=== PATIENT | male | born 1940 | race Caucasian/White ===

== ENCOUNTER 2016-06-28 03:00 | Inpatient (IN) | payer OTHER ==
[~2016-06-28] VITALS: Ht 177.8 cm; Wt 87.6 kg
[~2016-06-28 03:00] MED LIST: BCTROWC EXT; CHOL100010 PO; CLR10 PO; CYAN250T PO; CYCL10TA6 PO; FLUT0.0529 NAE; NYSTCRE11 EXT; PSYL55.43 PO; WARF2.5T8 PO; WARF5TAB7 PO; ZOLP10TA PO
[2016-06-28] MEDS ORDERED: KETOROLAC TROMETHAMINE 30 MG/ML VIAL ONE (03:34)
[2016-06-28] MEDS ORDERED: HYDROmorphone INJ 1 MG/ML SYR ONE (03:34)
[2016-06-28] MEDS ORDERED: ONDANSETRON INJ 2 MG/ML 2 ML VIAL ONE (03:34)
[2016-06-28 05:01] LABS: BLOOD UREA NITROGEN 15 mg/dl (7-18); CALCIUM 8.7 mg/dl (8.5-10.1); CARBON DIOXIDE 29 mmol/L (21-32); CHLORIDE 103 mmol/L (98-107); GLUCOSE 166 mg/dl (70-99); POTASSIUM 3.8 mmol/L (3.5-5.1); SODIUM 141 mmol/L (136-145)
[2016-06-28 05:02] LABS: BUN/CREATININE RATIO 16.4 (10-20); CREATININE 0.94 mg/dl (0.60-1.40)
[2016-06-28 05:08] LABS: INR 2.4 (0.9-1.1); PARTIAL THROMBOPLASTIN RATIO 1.3; PROTHROMBIN TIME (PATIENT) 26.5 SECONDS (9.0-12.0)
[2016-06-28 05:10] LABS: ALKALINE PHOSPHATASE 87 U/L (45-117); ALT/SGPT 18 U/L (12-78); AST/SGOT 11 U/L (15-37)
[2016-06-28] MEDS ORDERED: BCTCR/30 EXT (05:13)
[2016-06-28] MEDS ORDERED: FLUT0.15 NAE (05:16)
[2016-06-28] MEDS ORDERED: CHOL1000 PO (05:17)
[2016-06-28] MEDS ORDERED: [UNRECOGNIZED DRUG - CODE] PO (05:19)
[2016-06-28 05:45] LABS: URINE APPEARANCE CLEAR (CLEAR); URINE BILIRUBIN NEG (NEG); URINE COLOR YELLOW; URINE NITRITE NEG (NEG); UROBILINOGEN NEG (NEG); ZZUR CULT IF INDIC CLEAN CATCH NO
[2016-06-28 05:50] LABS: MANUAL MICROSCOPIC REQUIRED? NO; REVIEW REQ? NO
[2016-06-28 06:42] LABS: BASO % 0.1 %; BASO ABS # 0.01 K/uL (0-0.2); COMPLETE YES; EOS % 0.2 %; HEMATOCRIT 44.1 % (42-52); IG% 0.3 %; LYMPH % 12.7 %; LYMPH ABS # 1.15 K/uL (1.2-3.4); MEAN CELL VOLUME 95.5 fL (80-100); MEAN CORPUSCULAR HEMOGLOBIN 34.4 pg (25-34); MEAN CORPUSCULAR HGB CONC 36.1 g/dl (32-36); MEAN PLATELET VOLUME 11.5 fL (7.4-10.4); MONO % 6.3 %; NEUT % 80.4 %; PLATELET COUNT 103 K/uL (130-400); RED BLOOD COUNT 4.62 M/uL (4.7-6.1); WHITE BLOOD COUNT 9.02 K/uL (4.8-10.8)
[2016-06-28] MEDS ORDERED: HYDROmorphone INJ 1 MG/ML SYR IV STA (06:43)
--- NOTE | 2016-06-28 07:05 | EMERGENCY ROOM VISIT NOTE ---
History Report prepared by Jil: Flo Noe Under the Supervision of: Dr. Malina Betancur D.O. First contact with patient: 04:52 Chief Complaint: ABDOMINAL PAIN Stated Complaint: NAUSEA,BACK ACHE,GAS History of Present Illness The patient is a 75 year old male who presents to the Emergency Room with complaints of persistent back pain that started at 10 PM last night. He describes the discomfort as severe and notes that it is on both sides of his back. The patient also complains of nausea and not being able to get comfortable. He also noticed he was passing more gas than usual. He denies blood in his urine at this time. Source of History: patient Onset: 10 PM last night Position: back (bilateral) Symptom Intensity: severe Timing: other (persistent) Associated Symptoms: + nausea Note: Other associated symptoms: difficulty getting comfortable, passing gas Denies: blood in his urine Review of Systems See HPI for pertinent positives & negatives. A total of 10 systems reviewed and were otherwise negative. Past Medical & Surgical Medical Problems: (1) Cholecystitis with cholelithiasis (2) Diastolic CHF (3) DVT (deep venous thrombosis) (4) PSVT (paroxysmal supraventricular tachycardia) (5) Rupture of kidney (6) Thrombocytopenia Surgical Problems: (1) eyelid surgery Family History No pertinent family history Social History Smoking Status: Never Smoker Marital Status: Housing Status: lives with family Current/Historical Medications Scheduled Cholecalciferol (Vitamin D3), 1,000 INTUNIT PO DAILY Cyanocobalamin (Vitamin B-12 250 Mcg), 500 MCG PO DAILY Fluticasone Propionate (Nasal) (Flonase Allergy Relief), 2 SPRAYS FARAZ DAILY Psyllium (Konsyl-D), 2 TSP PO BID Warfarin Sod (Jantoven), 3.75 MG PO UD Warfarin Sod (Coumadin), 2.5 MG PO UD Scheduled PRN Cyclobenzaprine Hcl (Flexeril), 10 MG PO TID PRN for muscle spasms Hydromorphone Hcl (Dilaudid), 1 TAB PO QID PRN for Pain Mupirocin 2% (Bactroban 2%), 1 APPLN EXT UD PRN for skin irritation Nystatin/Triamcinolone (Mycogen || ), 1 APPLN EXT DIRECTED PRN for Affected Skin Folds Zolpidem Tartrate (Ambien), 5 MG PO HS PRN for Sleep Allergies Coded Allergies: Garlic (Verified Allergy, Mild, stomach cramp, diarrhea, 06/28/16) Naproxen (Verified Allergy, Unknown, skin rash, 06/28/16) Hydrocodone (Verified Adverse Reaction, Unknown, vomiting, 06/28/16) Loratadine (Verified Adverse Reaction, Unknown, RACING HEART, 06/28/16) Omeprazole (Verified Adverse Reaction, Unknown, svt, 06/28/16) Onion (Verified Adverse Reaction, Unknown, upset stomach/diarrhea, 06/28/16) Oxycodone (Verified Adverse Reaction, Unknown, "KNOCKS ME OUT", 06/28/16) Pseudoephedrine (Verified Adverse Reaction, Unknown, RACING HEART, 06/28/16) Physical Exam Vital Signs Date Time Temp Pulse Resp B/P Pulse Ox O2 Delivery O2 Flow Rate FiO2 06/28/16 06:52 68 16 135/85 97 Room Air Physical Exam General: Appearing uncomfortable, was pacing around the room. HEENT: Head - normocephalic and atraumatic Pupils are equal, round, and reactive to light. Extraocular eye muscles are intact, and sclera are anicteric. Nose - moist nasal mucosa without discharge. Mouth - moist buccal mucosa. Oropharynx is nonerythematous and there is no tonsillar exudate or edema noted. Neck: Supple; no JVD, nuchal rigidity, cervical lymphadenopathy, or auscultated bruits. Back: Mid back tenderness with palpation, right worse than left. Heart: Regular rate and rhythm. There is a normal S1 and S2 with no murmurs, clicks, or gallops appreciated. Lungs: Clear to auscultation bilaterally with no wheezes, rales, or rhonchi. Abdomen: Soft, completely nontender, nondistended, with good bowel sounds. There are no palpable pulsatile masses or hepatosplenomegaly. There is no guarding, rigidity, or rebound noted. Extremities: No evidence of cyanosis, clubbing, or edema. There are easily palpable peripheral pulses. Skin: Skin is pale and diaphoretic. Medical Decision & Procedures ER Provider Diagnostic Interpretation: CT results as stated below per my review and radiologist interpretation: CT Abdomen & Pelvis: Distended gallbladder with possible thickening of the wall at the fundus. Correlate for clinical significance. No definite gallstones but ultrasound is more sensitive. Pancrease unremarkable. No obstructive uropathy/ urolithiasis. Stool throughout colon can be seen constipation with no appendicitis or bowel obstruction. No free air, free fluid, or other acute disease. Small fat- containing right inguinal hernia. BILIARY ULTRASOUND CLINICAL HISTORY: Right upper quadrant abdominal pain COMPARISON STUDY: No previous studies for comparison. FINDINGS: The pancreas is nonvisualized. No focal hepatic masses were visualized. There are multiple gallstones present. The gallbladder is distended. There is gallbladder wall thickening. The findings are viewed as suspicious for acute cholecystitis. There is no common bile duct dilatation. The common bile duct measured 2 mm. There is no right-sided hydronephrosis. IMPRESSION: 1. Distended gallbladder filled with stones and sludge. Gallbladder wall thickening. The findings are suspicious for acute cholecystitis. Electronically signed by: Josue Cuellar M.D. 06/28/2016 7:04 AM Dictated Date/Time: 06/28/2016 7:02 AM Laboratory Results Test 06/28/16 03:45 06/28/16 05:30 Nucleated RBC Absolute Count (auto) 0.00 K/uL (0-0) Nucleated Red Blood Cells % 0.0 % Direct Bilirubin 0.2 mg/dl (0-0.2) Urine Color YELLOW Urine Appearance CLEAR (CLEAR) Urine pH 5.0 (4.5-7.5) Urine Specific [place] 1.020 (1.000-1.030) Urine Protein NEG (NEG) Urine Glucose (UA) NEG (NEG) Urine Ketones NEG (NEG) Urine Occult Blood TRACE (NEG) Urine Nitrite NEG (NEG) Urine Bilirubin NEG (NEG) Urine Urobilinogen NEG (NEG) Urine Leukocyte Esterase NEG (NEG) Urine WBC (Auto) 1-5 /hpf (0-5) Urine RBC (Auto) 0-4 /hpf (0-4) Urine Hyaline Casts (Auto) 10-30 /lpf (0-5) Urine Epithelial Cells (Auto) 10-20 /lpf (0-5) Urine Bacteria (Auto) NEG (NEG) Laboratory results per my review. Medications Administered Medications (Trade) Dose Ordered Sig/Benjamin Route Start Time Stop Time Status Last Admin Dose Admin Hydromorphone HCl (Dilaudid Inj) 1 mg NOW STAT IV 06/28/16 06:43 06/28/16 06:44 DC 06/28/16 06:51 1 MG Hydromorphone HCl (Dilaudid Inj) 0.5 mg Q3H PRN IV 06/28/16 08:45 06/29/16 16:30 DC 06/29/16 10:41 0.5 MG Procedure Dilaudid Inj IV X 2 ED Course 0331: Past medical records reviewed. The patient was evaluated in room A4. A complete history and physical exam was performed. An IV lock was initiated and labs are drawn as above. 0430: At this time, I reevaluated the paitent and he is feeling much better after the medications. The patient went for CT scan of the abdomen/pelvis. This is described above. 0643: Ordered Dilaudid Inj 1 mg IV. 0701: At this time, I reevaluated the patient and he is resting. He will go for ultrasound to further evaluate the gallbladder. 0721: At this time, I discussed the patient's case with Dr. Carroll - General Antonino Ghosh and he agreed to accept the patient for further evaluation. Medical Decision The patient is a 75 year old male who presents to the Emergency Room with complaints of persistent back pain. Differential diagnoses include: pyelonephritis, uretal colic, lumbar strain, or cholecystitis. Labs reviewed by me: WBC 9 stable H&H platelet count 103 normal renal function. LFTs were unremarkable. Patient presents to the emergency department with severe persistent back pain. The patient got that he maybe suffering from a kidney stone. CT scan showed no evidence of a kidney stone but did have findings or concerning for cholecystitis. He went for ultrasound of the right upper quadrant. This confirmed javier cholecystitis. I discussed the case with Dr. Carroll and he will evaluated for further care. Consults Time Called: [phone] Consulting Physician: Dr. Elizabeth Ghosh Returned Call: [phone] At this time, I discussed the patient's case with Dr. Carroll and he agreed to accept the patient for further evaluation. Impression Primary Impression: Acute cholecystitis Scribe Attestation The scribe's documentation has been prepared under my direction and personally reviewed by me in its entirety. I confirm that the note above accurately reflects all work, treatment, procedures, and medical decision making performed by me. Departure Information Dispostion Being Evaluated By Surgeon Prescriptions Hydromorphone Hcl (DILAUDID) 2 Mg Tab 1 TAB PO QID Y for Pain for 30 Days, #18 TAB Prov: Brandi Rudd ., PA-C 06/29/16 Referrals Jacky Reza MD (PCP)
--- NOTE | 2016-06-28 07:08 | DIAGNOSTIC IMAGING REPORT ---
ABDOMEN AND PELVIS CT WITHOUT CONTRAST CT DOSE: HISTORY: Flank pain. Abdominal pain. R/O KIDNEY STONE TECHNIQUE: Multiaxial CT images of the abdomen and pelvis were performed without the use of intravenous and oral contrast according to the standard department stone protocol. COMPARISON STUDY: None. FINDINGS: Lung bases are clear. Liver spleen and pancreas appear unremarkable. Gallbladder is mildly distended. There may be a slight degree of gallbladder wall edema. There is trace amount of perinephric infiltrative change most likely age-related. Kidneys negative for hydronephrosis. Mild increase in fecal load throughout the colon. No obstructive characteristics. Bladder is midline. Multiple pelvic vascular calcifications. IMPRESSION: 1. Mild gallbladder distention with a suggestion of slight gallbladder wall edema. 2. Otherwise no acute process of the abdomen or pelvis Electronically signed by: Thomas Park M.D. 06/28/2016 7:07 AM Dictated Date/Time: 06/28/2016 6:57 AM
[2016-06-28] MEDS ORDERED: ONDANSETRON INJ 2 MG/ML 2 ML VIAL IV PRN (08:45)
[2016-06-28] MEDS ORDERED: HYDROmorphone INJ 0.5 MG/0.5 ML SYR IV PRN (08:45)
--- NOTE | 2016-06-28 09:01 | History and Physical ---
History & Physical Date & Time of Service: Jun 28, 2016 at 08:47 Chief Complaint: Nausea,Back Ache,Gas Primary Care Physician: Jacky Reza MD History of Present Illness Source: patient Alec is a 75 year-old male with history of DVT, HTN , diastolic heart failure, a- fib, and PSVT who presented to emergency department early this morning with complaint of sudden back pain and right upper sided abdominal pain that woke him up in bed around 10 pm. States he felt nauseated and felt like he had to vomit but nothing came up more than a lot of gas. Denies of any similar previous episodes of pain. No associated change in bowel habits, diarrhea, constipation, blood in stools, black/tarry stools, or acholic stools. Denies of any history of gallbladder problems. Denies of any fever, chills, night sweats, chest pain, shortness of breath, difficulty breathing, or palpitations. Mother had her gallbladder removed in her 70's. No other family history of gallbladder problems. 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 No other blood thinning agents. 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 (3) Diastolic HF (4) PSVT (5) A-Fib (9) Thrombocytopenia Family History No pertinent family history Social History Smoking Status: Never Smoker Marital Status: Housing status: lives with family Occupational Status: retired Allergies Coded Allergies: Naproxen (Verified Allergy, Unknown, skin rash, 06/28/16) Hydrocodone (Verified Adverse Reaction, Unknown, vomiting, 06/28/16) Loratadine (Verified Adverse Reaction, Unknown, RACING HEART, 06/28/16) Omeprazole (Verified Adverse Reaction, Unknown, svt, 06/28/16) Onion (Verified Adverse Reaction, Unknown, upset stomach/diarrhea, 06/28/16) Oxycodone (Verified Adverse Reaction, Unknown, "KNOCKS ME OUT", 06/28/16) Pseudoephedrine (Verified Adverse Reaction, Unknown, RACING HEART, 06/28/16) Home Medications Scheduled Cholecalciferol (Vitamin D3), 1,000 INTUNIT PO DAILY Cyanocobalamin (Vitamin B-12 250 Mcg), 500 MCG PO DAILY Fluticasone Propionate (Nasal) (Flonase Allergy Relief), 2 SPRAYS FARAZ DAILY Psyllium (Konsyl-D), 2 TSP PO BID Warfarin Sod (Jantoven), 3.75 MG PO UD Warfarin Sod (Coumadin), 2.5 MG PO UD Scheduled PRN Cyclobenzaprine Hcl (Flexeril), 10 MG PO TID PRN for muscle spasms Mupirocin 2% (Bactroban 2%), 1 APPLN EXT UD PRN for skin irritation Nystatin/Triamcinolone (Mycogen || ), 1 APPLN EXT DIRECTED PRN for Affected Skin Folds Zolpidem Tartrate (Ambien), 5 MG PO HS PRN for Sleep Review of Systems Constitutional: No chills, No fever, No sweats Respiratory: No dyspnea on exertion, No shortness of breath Cardiovascular: No chest pain Abdomen: + nausea, + pain (RUQ), No GI bleeding, No constipation, No diarrhea, No vomiting Musculoskeletal: + problem reported (back pain) Genitourinary - Male: No hematuria Endocrine: No fatigue Hematologic / Lymphatic: No abnormal bleeding/bruising Physical Exam Vital Signs Date Time Temp Pulse Resp B/P Pulse Ox O2 Delivery O2 Flow Rate FiO2 06/28/16 06:52 68 16 135/85 97 Room Air General Appearance: WD/WN, no apparent distress Head: normocephalic, atraumatic Eyes: EOMI, sclerae normal ENT: hearing grossly normal Neck: supple, trachea midline Respiratory/Chest: lungs clear, normal breath sounds, no respiratory distress, no accessory muscle use Cardiovascular: no murmur, + irregularly irregular Abdomen/GI: non tender, soft, no organomegaly, no pulsatile mass, + abnormal bowel sounds (hypoactive) Back: normal inspection Extremities/Musculoskelatal: no pedal edema Neurologic/Psych: alert, normal mood/affect, oriented x 3 Skin: normal color, warm/dry, no rash Diagnostics Laboratory Results Results Past 24 Hours Test 06/28/16 03:45 06/28/16 05:30 Range/Units White Blood Count 9.02 4.8-10.8 K/uL Red Blood Count 4.62 4.7-6.1 M/uL Hemoglobin 15.9 14.0-18.0 g/dL Hematocrit 44.1 42-52 % Mean Corpuscular Volume 95.5 80-100 fL Mean Corpuscular Hemoglobin 34.4 25-34 pg Mean Corpuscular Hemoglobin Concent 36.1 32-36 g/dl Platelet Count 103 130-400 K/uL Mean Platelet Volume 11.5 7.4-10.4 fL Neutrophils (%) (Auto) 80.4 % Lymphocytes (%) (Auto) 12.7 % Monocytes (%) (Auto) 6.3 % Eosinophils (%) (Auto) 0.2 % Basophils (%) (Auto) 0.1 % Neutrophils # (Auto) 7.24 1.4-6.5 K/uL Lymphocytes # (Auto) 1.15 1.2-3.4 K/uL Monocytes # (Auto) 0.57 0.11-0.59 K/uL Eosinophils # (Auto) 0.02 0-0.5 K/uL Basophils # (Auto) 0.01 0-0.2 K/uL RDW Standard Deviation 41.6 36.4-46.3 fL RDW Coefficient of Variation 12.0 11.5-14.5 % Immature Granulocyte % (Auto) 0.3 % Immature Granulocyte # (Auto) 0.03 0.00-0.02 K/uL Nucleated RBC Absolute Count (auto) 0.00 0-0 K/uL Nucleated Red Blood Cells % 0.0 % Prothrombin Time 26.5 9.0-12.0 SECONDS Prothromb Time International Ratio 2.4 0.9-1.1 Activated Partial Thromboplast Time 34.7 21.0-31.0 SECONDS Partial Thromboplastin Ratio 1.3 Sodium Level 141 136-145 mmol/L Potassium Level 3.8 3.5-5.1 mmol/L Chloride Level 103 98-107 mmol/L Carbon Dioxide Level 29 21-32 mmol/L Anion Gap 9.0 3-11 mmol/L Blood Urea Nitrogen 15 7-18 mg/dl Creatinine 0.94 0.60-1.40 mg/dl Estimated GFR () 92.9 Estimated GFR (Non- 80.1 BUN/Creatinine Ratio 16.4 10-20 Random Glucose 166 70-99 mg/dl Calcium Level 8.7 8.5-10.1 mg/dl Total Bilirubin 0.7 0.2-1 mg/dl Direct Bilirubin 0.2 0-0.2 mg/dl Aspartate Amino Transf (AST/SGOT) 11 15-37 U/L Alanine Aminotransferase (ALT/SGPT) 18 12-78 U/L Alkaline Phosphatase 87 45-117 U/L Total Protein 7.2 6.4-8.2 gm/dl Albumin 4.1 3.4-5.0 gm/dl Lipase 191 73-393 U/L Urine Color YELLOW Urine Appearance CLEAR CLEAR Urine pH 5.0 4.5-7.5 Urine Specific [place] 1.020 1.000-1.030 Urine Protein NEG NEG Urine Glucose (UA) NEG NEG Urine Ketones NEG NEG Urine Occult Blood TRACE NEG Urine Nitrite NEG NEG Urine Bilirubin NEG NEG Urine Urobilinogen NEG NEG Urine Leukocyte Esterase NEG NEG Urine WBC (Auto) 1-5 0-5 /hpf Urine RBC (Auto) 0-4 0-4 /hpf Urine Hyaline Casts (Auto) 10-30 0-5 /lpf Urine Epithelial Cells (Auto) 10-20 0-5 /lpf Urine Bacteria (Auto) NEG NEG Diagnostic Radiology BILIARY ULTRASOUND CLINICAL HISTORY: Right upper quadrant abdominal pain COMPARISON STUDY: No previous studies for comparison. FINDINGS: The pancreas is nonvisualized. No focal hepatic masses were visualized. There are multiple gallstones present. The gallbladder is distended. There is gallbladder wall thickening. The findings are viewed as suspicious for acute cholecystitis. There is no common bile duct dilatation. The common bile duct measured 2 mm. There is no right-sided hydronephrosis. IMPRESSION: 1. Distended gallbladder filled with stones and sludge. Gallbladder wall thickening. The findings are suspicious for acute cholecystitis. ABDOMEN AND PELVIS CT WITHOUT CONTRAST CT DOSE: HISTORY: Flank pain. Abdominal pain. R/O KIDNEY STONE TECHNIQUE: Multiaxial CT images of the abdomen and pelvis were performed without the use of intravenous and oral contrast according to the standard department stone protocol. COMPARISON STUDY: None. FINDINGS: Lung bases are clear. Liver spleen and pancreas appear unremarkable. Gallbladder is mildly distended. There may be a slight degree of gallbladder wall edema. There is trace amount of perinephric infiltrative change most likely age-related. Kidneys negative for hydronephrosis. Mild increase in fecal load throughout the colon. No obstructive characteristics. Bladder is midline. Multiple pelvic vascular calcifications. IMPRESSION: 1. Mild gallbladder distention with a suggestion of slight gallbladder wall edema. 2. Otherwise no acute process of the abdomen or pelvis Impression Assessment and Plan Acute Calculous Cholecystitis - no leukocytosis - LFTs, Bilirubin, and lipase within normal limits - examination does not show positive Kinsey's at this time however was given pain medication prior to examination History of DVT with INR of 2.4 PLAN: Plan to admit patient for observation and start IV fluids, IV antibiotics, IV pain medication and IV Zofran as needed May have clear liquids, NPO after midnight Will consult hospitalist to follow patient given cardiac history and elevated INR Will need reversal of INR prior to surgery Plan on surgery tomorrow afternoon hopefully Recheck am labs including cbc, cmp, lipase, PT/INR Dr. Carroll has seen and examined patient , agrees with assessment and plan. VTE Prophylaxis VTE Risk Assessment Done? Y/N: Yes Risk Level: Low Given or contraindicated: SCD's Social Service Consult None Apply Note I interviewed and examined this patient and reviewed the labs and radiology reports and I agree with the above note. His symptoms and exam are all consistent with cholecystitis. I recommended a laparoscopic cholecystectomy and explained the possible need to convert to and open procedure. I explained the possible complications and answered his questions. He has signed a coonsent form.
[2016-06-28] MEDS ORDERED: CMD/25 PO (10:28)
[2016-06-28] MEDS ORDERED: IV FLUIDS COMPLETED PRN (10:45)
--- NOTE | 2016-06-28 10:50 | DIAGNOSTIC IMAGING REPORT ---
CHEST ONE VIEW PORTABLE CLINICAL HISTORY: pre op COMPARISON STUDY: No previous studies for comparison. FINDINGS: The bones soft tissues and hemidiaphragms are normal. The cardiomediastinal silhouette is normal. The lungs are clear. The pulmonary vasculature is normal. IMPRESSION: Negative chest. Electronically signed by: Thomas Park M.D. 06/28/2016 10:48 AM Dictated Date/Time: 06/28/2016 10:48 AM
[2016-06-28 11:03] VITALS: Ht 177.8 cm; Wt 87.6 kg
[2016-06-28] MEDS ORDERED: PHYTONADIONE 5 MG TAB PO STA (11:18)
[2016-06-28] MEDS ORDERED: D5W AND 1/2NSS + 20MEQ KCL 1,000 ML IV SCH (11:30)
--- NOTE | 2016-06-28 11:53 | Medical Consult ---
Consultation Date of Consultation: Jun 28, 2016. Attending Physician: Thomas Carroll M.D. Reason for Consultation: Pre Op Evaluation History of Present Illness 75 year old male who presented to the ER with back pain and nausea, found to have acute cholecystitis on imaging. Patient reports he developed mid back and flank pain (R>L) around 10pm last night. He also had associated nausea. He denies vomiting, diarrhea, and abdominal pain. No fever or chills. Patient reports he otherwise has been feeling well recently. No chest pain or shortness of breath. He denies lightheadedness, dizziness, and syncopal events. No exertional shortness of breath, orthopnea, or lower extremity edema. He denies urinary symptoms. At the time of my exam, patient is resting in bed in no acute distress. Past Medical/Surgical History Medical Problems: (1) Diastolic CHF Status: Chronic (2) DVT (deep venous thrombosis) Status: Chronic (3) PSVT (paroxysmal supraventricular tachycardia) Status: Chronic (4) Rupture of kidney Status: Resolved (5) Thrombocytopenia Status: Chronic Surgical Problems: (1) eyelid surgery Status: Chronic Family History Diabetes mellitus MOTHER FH: leukemia BROTHER Social History Smoking Status: Never Smoker Alcohol Use: none Marital Status: Occupation Status: retired Allergies Coded Allergies: Naproxen (Verified Allergy, Unknown, skin rash, 06/28/16) Hydrocodone (Verified Adverse Reaction, Unknown, vomiting, 06/28/16) Loratadine (Verified Adverse Reaction, Unknown, RACING HEART, 06/28/16) Omeprazole (Verified Adverse Reaction, Unknown, svt, 06/28/16) Onion (Verified Adverse Reaction, Unknown, upset stomach/diarrhea, 06/28/16) Oxycodone (Verified Adverse Reaction, Unknown, "KNOCKS ME OUT", 06/28/16) Pseudoephedrine (Verified Adverse Reaction, Unknown, RACING HEART, 06/28/16) Home Medications Coumadin (Warfarin Sod) 2.5 Mg Tab 2.5 Mg PO UD all days except Saturday and Konsyl-D (Psyllium) 52.3 % Pow 2 Tsp PO BID Vitamin D3 (Cholecalciferol) 1,000 Unit Tab 1,000 Intunit PO DAILY 90 Days Flonase Allergy Relief (Fluticasone Propionate (Nasal)) 50 Mcg/Act Spr 2 Sprays FARAZ DAILY Bactroban 2% (Mupirocin) 30 Gm Cr 1 Appln EXT UD PRN Vitamin B-12 250 Mcg (Cyanocobalamin) 250 Mcg Tab 500 Mcg PO DAILY Mycogen || (Nystatin/Triamcinolone Acetonide) Cr 1 Appln EXT DIRECTED PRN Flexeril (Cyclobenzaprine Hcl) 10 Mg Tab 10 Mg PO TID PRN Ambien (Zolpidem Tartrate) 10 Mg Tab 5 Mg PO HS PRN Jantoven (Warfarin Sodium) 2.5 Mg Tab 3.75 Mg PO UD Saturday and Saturday Current Inpatient Medications Current Inpatient Medications Medications (Trade) Dose Ordered Sig/Benjamin Route Start Time Stop Time Status Last Admin Dose Admin Potassium Chloride/Dextrose/ Sod Cl 1,000 ml @ 125 mls/hr Q8H IV 06/28/16 11:30 07/28/16 11:29 Metronidazole/Prmx (Flagyl / Nss/ Premixed Nss) 0 ml @ 100 mls/hr Q8 IV 06/28/16 14:00 06/29/16 13:59 Ondansetron HCl (Zofran Inj) 4 mg Q4H PRN IV 06/28/16 08:45 07/28/16 08:44 Hydromorphone HCl (Dilaudid Inj) 0.2 mg Q3H PRN IV 06/28/16 08:45 07/12/16 08:44 Hydromorphone HCl 0.5 mg 0.5 mg Q3H PRN IV 06/28/16 08:45 07/12/16 08:44 Ciprofloxacin/ Dextrose/Prmx (Cipro / D5w/ Premixed D5W) 200 ml @ 100 mls/hr Q12H IV 06/28/16 11:00 06/30/16 10:59 Miscellaneous (Iv Fluids Completed) 1 ea PRN PRN N/A 06/28/16 10:45 06/28/17 10:44 Review of Systems 10 point review of systems was completed with the pertinent positives and negatives noted per the HPI Physical Exam Date Time Temp Pulse Resp B/P Pulse Ox O2 Delivery O2 Flow Rate FiO2 06/28/16 11:03 Room Air 06/28/16 10:08 64 16 115/65 95 Room Air 06/28/16 09:07 77 16 111/70 96 Room Air 06/28/16 06:52 68 16 135/85 97 Room Air General Appearance: no apparent distress Head: normocephalic Eyes: normal inspection ENT: hearing grossly normal Neck: supple, no JVD Respiratory/Chest: lungs clear, normal breath sounds, no respiratory distress Cardiovascular: regular rate, rhythm, no edema, normal peripheral pulses Abdomen/GI: normal bowel sounds, non tender, soft Extremities/Musculoskelatal: normal inspection, no calf tenderness Neurologic/Psych: no motor/sensory deficits, alert, normal mood/affect, oriented x 3 Skin: normal color, warm/dry Laboratory Results Last 24 Hours Test 06/28/16 03:45 06/28/16 05:30 White Blood Count 9.02 K/uL Red Blood Count 4.62 M/uL Hemoglobin 15.9 g/dL Hematocrit 44.1 % Mean Corpuscular Volume 95.5 fL Mean Corpuscular Hemoglobin 34.4 pg Mean Corpuscular Hemoglobin Concent 36.1 g/dl Platelet Count 103 K/uL Mean Platelet Volume 11.5 fL Neutrophils (%) (Auto) 80.4 % Lymphocytes (%) (Auto) 12.7 % Monocytes (%) (Auto) 6.3 % Eosinophils (%) (Auto) 0.2 % Basophils (%) (Auto) 0.1 % Neutrophils # (Auto) 7.24 K/uL Lymphocytes # (Auto) 1.15 K/uL Monocytes # (Auto) 0.57 K/uL Eosinophils # (Auto) 0.02 K/uL Basophils # (Auto) 0.01 K/uL RDW Standard Deviation 41.6 fL RDW Coefficient of Variation 12.0 % Immature Granulocyte % (Auto) 0.3 % Immature Granulocyte # (Auto) 0.03 K/uL Nucleated RBC Absolute Count (auto) 0.00 K/uL Nucleated Red Blood Cells % 0.0 % Prothrombin Time 26.5 SECONDS Prothromb Time International Ratio 2.4 Activated Partial Thromboplast Time 34.7 SECONDS Partial Thromboplastin Ratio 1.3 Sodium Level 141 mmol/L Potassium Level 3.8 mmol/L Chloride Level 103 mmol/L Carbon Dioxide Level 29 mmol/L Anion Gap 9.0 mmol/L Blood Urea Nitrogen 15 mg/dl Creatinine 0.94 mg/dl Estimated GFR () 92.9 Estimated GFR (Non- 80.1 BUN/Creatinine Ratio 16.4 Random Glucose 166 mg/dl Calcium Level 8.7 mg/dl Total Bilirubin 0.7 mg/dl Direct Bilirubin 0.2 mg/dl Aspartate Amino Transf (AST/SGOT) 11 U/L Alanine Aminotransferase (ALT/SGPT) 18 U/L Alkaline Phosphatase 87 U/L Total Protein 7.2 gm/dl Albumin 4.1 gm/dl Lipase 191 U/L Urine Color YELLOW Urine Appearance CLEAR Urine pH 5.0 Urine Specific [place] 1.020 Urine Protein NEG Urine Glucose (UA) NEG Urine Ketones NEG Urine Occult Blood TRACE Urine Nitrite NEG Urine Bilirubin NEG Urine Urobilinogen NEG Urine Leukocyte Esterase NEG Urine WBC (Auto) 1-5 /hpf Urine RBC (Auto) 0-4 /hpf Urine Hyaline Casts (Auto) 10-30 /lpf Urine Epithelial Cells (Auto) 10-20 /lpf Urine Bacteria (Auto) NEG Assessment & Plan ACUTE CHOLECYSTITIS - admitted to med/surg under general surgery service - hemodynamically stable - no signs of sepsis - Cipro/Flagyl per surgery - diet per surgery - on Coumadin for hx RLE DVT (2006); INR 2.4, will give Vit K 5mg PO today, recheck INR in AM and give FFP if needed to get INR < 1.5 - CXR clear, EKG shows NSR with frequent PACs (unchanged from prior) - due to patient's lack of cardiovascular history and cardiovascular complaints , patient can proceed to the OR and be considered low risk HX DVT - as above - resume Coumadin when OK with surgery PSVT - no issues, EKG as above - currently not on any rate controlling meds DIASTOLIC DYSFUNCTION - echo 06/2015 - EF 55-50%, grade I diastolic dysfunction - does not take diuretics - appears euvolemic, monitor volume status closely DVT PROPHYLAXIS - SCDs for INR < 2.0 ATTENDING ADDENDUM care coordinated with FRANCISCA Myers please refer to her notes for full details, I agree with her notes patient seen and examined, records reviewed by myself as well on exam, patient seen resting in bed, comfortable has some chills no chest pain, dyspnea, palpitations otherwise no other symptoms VS noted and reviewed oriented , not in distress, speaks in sentences with no effort nor accessory muscle use normal rate, regular rhythm, no murmurs clear breath sounds bilaterally non distended, soft, nontender no bipedal edema, erythema, warmth no neuro deficits INR 2.4 ASSESSMENT/PLAN> HISTORY OF DVT INR 2.4 Vit K 5mg po one check INR in AM HISTORY OF CHF euvolemic monitor volume status closely other diagnoses and plan of care as per FRANCISCA yMers's notes Luis Enrique Gonzalez MD
[2016-06-28] MEDS: HYDROmorphone INJ 0.5 MG/0.5 ML SYR IV PRN ×2 (12:25→20:11)
[2016-06-28] MEDS: CIPROFLOXACIN / D5W 400 MG in PREMIXED IN D5W 200 ML IV SCH ×2 (12:26→23:47)
[2016-06-28] MEDS: METRONIDAZOLE / NSS 500 MG in PREMIXED NSS 0 ML IV SCH ×2 (14:11→22:17)
[2016-06-28 15:23] VITALS: BP 112/65; PULSE 56; TEMP 36.6; O2SAT 96
--- NOTE | 2016-06-28 15:38 | Anesthesiology Progress Note ---
Anesthesia Progress Note Date of Service Jun 28, 2016. Progress Notes This is an75 y/o w male w/ acute cholecystitis presenting for laparoscopic cholecystectomy.His PMHx is sig. for Hx/o recurring DVT of Right LE,Hx/o diastolic CHF,Hx/o chronic thrombocytopenia,Hx/o A Fib on warfarin,and hx/o PSVT.Pt states he had sleep apnea and lost 65 lbs. and now is w/o it. Discussed anesthesia w/pt. ,risks vs benefits ,all questions answered.Informed consent obtained.
[2016-06-28 16:10] VITALS: O2SAT 96
[2016-06-28] MEDS: D5NSS + 20MEQ KCL 1,000 ML IV SCH (22:17)
[2016-06-28 23:17] VITALS: BP_SYST 103; BP_SYST 124; BP_DIAS 63; BP_DIAS 75; PULSE 66; PULSE 81; TEMP 36.6; O2SAT 94; O2SAT 96
[2016-06-29] VITALS (15 sets, daily range): BP systolic 98–153; BP diastolic 54–88; PULSE 60–106; TEMP 36.5–37.4; O2SAT 92–97
[2016-06-29] MEDS: METRONIDAZOLE / NSS 500 MG in PREMIXED NSS 0 ML IV SCH (05:19)
[2016-06-29] MEDS: D5NSS + 20MEQ KCL 1,000 ML IV SCH ×4 (05:19→21:55)
[2016-06-29] MEDS: HYDROmorphone INJ 0.5 MG/0.5 ML SYR IV PRN ×2 (05:53→10:41)
[2016-06-29 07:19] LABS: HEMATOCRIT 38.6 % (42-52); MEAN CORPUSCULAR HEMOGLOBIN 32.9 pg (25-34); MEAN CORPUSCULAR HGB CONC 33.9 g/dl (32-36); RED BLOOD COUNT 3.98 M/uL (4.7-6.1); WHITE BLOOD COUNT 6.67 K/uL (4.8-10.8)
[2016-06-29] MEDS ORDERED: ONDANSETRON INJ 2 MG/ML 2 ML VIAL IV PRN (07:30)
[2016-06-29] MEDS ORDERED: ATROPINE SULFATE 0.1 MG/ML 5ML SYR IV PRN (07:30)
[2016-06-29] MEDS ORDERED: FENTANYL CITRATE INJ 50 MCG/1 ML 2 ML VIAL IV PRN (07:30)
[2016-06-29 07:31] LABS: PROTHROMBIN TIME (PATIENT) 21.9 SECONDS (9.0-12.0)
[2016-06-29 07:52] LABS: BASO % 0.1 %; BASO ABS # 0.01 K/uL (0-0.2); COMPLETE YES; EOS % 1.5 %; IG% 0.1 %; LYMPH % 19.3 %; LYMPH ABS # 1.29 K/uL (1.2-3.4); MEAN PLATELET VOLUME 10.5 fL (7.4-10.4); MONO % 11.1 %; NEUT % 67.9 %; PLATELET COUNT 76 K/uL (130-400)
[2016-06-29 08:00] LABS: BUN/CREATININE RATIO 10.4 (10-20); CALCIUM 7.7 mg/dl (8.5-10.1); CREATININE 0.8 mg/dl (0.60-1.40)
--- NOTE | 2016-06-29 08:28 | Progress Note ---
Medicine Progress Note Date & Time of Visit: Jun 29, 2016 at 08:22. Subjective seen laying in bed, comfortable at bedside states he feels ok denies abdominal pain, nausea no chest pain, dyspnea, dizziness no other symptoms Objective Last 8 Hrs Date Time Temp Pulse Resp B/P Pulse Ox O2 Delivery O2 Flow Rate FiO2 06/29/16 07:53 36.7 61 14 98/54 97 Room Air Physical Exam: General- oriented x 3, not in distress, speaks in sentences with no effort Eyes- anicteric Neck- no JVD Lungs- clear breath sounds bilaterally Heart- normal rate, regular rhythm; no murmurs Abdomen- normal bowel sounds, non distended, soft, nontender Extremities- no pretibial edema, no calf tenderness Neuro- alert, oriented x 3; no gross focal deficits Skin- warm & dry Laboratory Results: Last 24 Hours Test 06/29/16 07:01 White Blood Count 6.67 K/uL Red Blood Count 3.98 M/uL Hemoglobin 13.1 g/dL Hematocrit 38.6 % Mean Corpuscular Volume 97.0 fL Mean Corpuscular Hemoglobin 32.9 pg Mean Corpuscular Hemoglobin Concent 33.9 g/dl Platelet Count 76 K/uL Mean Platelet Volume 10.5 fL Neutrophils (%) (Auto) 67.9 % Lymphocytes (%) (Auto) 19.3 % Monocytes (%) (Auto) 11.1 % Eosinophils (%) (Auto) 1.5 % Basophils (%) (Auto) 0.1 % Neutrophils # (Auto) 4.52 K/uL Lymphocytes # (Auto) 1.29 K/uL Monocytes # (Auto) 0.74 K/uL Eosinophils # (Auto) 0.10 K/uL Basophils # (Auto) 0.01 K/uL RDW Standard Deviation 43.7 fL RDW Coefficient of Variation 12.3 % Immature Granulocyte % (Auto) 0.1 % Immature Granulocyte # (Auto) 0.01 K/uL Prothrombin Time 21.9 SECONDS Prothromb Time International Ratio 2.0 Sodium Level 141 mmol/L Potassium Level 4.0 mmol/L Chloride Level 108 mmol/L Carbon Dioxide Level 26 mmol/L Anion Gap 7.0 mmol/L Blood Urea Nitrogen 8 mg/dl Creatinine 0.80 mg/dl Est Creatinine Clear Calc Drug Dose 84.9 ml/min Estimated GFR () 102.7 Estimated GFR (Non- 88.6 BUN/Creatinine Ratio 10.4 Random Glucose 117 mg/dl Calcium Level 7.7 mg/dl Total Bilirubin 1.5 mg/dl Aspartate Amino Transf (AST/SGOT) 12 U/L Alanine Aminotransferase (ALT/SGPT) 13 U/L Alkaline Phosphatase 63 U/L Total Protein 5.5 gm/dl Albumin 2.8 gm/dl Globulin 2.7 gm/dl Albumin/Globulin Ratio 1.0 Lipase 163 U/L Assessment & Plan ACUTE CHOLECYSTITIS - Cipro/Flagyl IV fluids - no medical contraindication to proceed with surgery today patient moderate risk for cardio-pulmonary complications History of DVT - usually on coumadin - given VIt k 5mg po yesterday, INR 2.0 today - will give 2 units FFP recheck INR at 1130 - will need Lovenox bridge with coumadin after surgery when hemostasis stable per Surgery SVC Thrombocytopenia - chronic as per patient - no signs of bleeding - Plt usually in the 90k - monitor PSVT History - not on medications DIASTOLIC DYSFUNCTION - echo 06/2015 - EF 55-50%, grade I diastolic dysfunction - euvolemic DVT PROPHYLAXIS - SCDs for INR < 2.0 Current Inpatient Medications: Current Inpatient Medications Medications (Trade) Dose Ordered Sig/Benjamin Route Start Time Stop Time Status Last Admin Dose Admin Metronidazole/Prmx (Flagyl / Nss/ Premixed Nss) 0 ml @ 100 mls/hr Q8 IV 06/28/16 14:00 06/29/16 13:59 06/29/16 05:19 100 MLS/HR Ondansetron HCl (Zofran Inj) 4 mg Q4H PRN IV 06/28/16 08:45 07/28/16 08:44 Hydromorphone HCl (Dilaudid Inj) 0.2 mg Q3H PRN IV 06/28/16 08:45 07/12/16 08:44 Hydromorphone HCl 0.5 mg 0.5 mg Q3H PRN IV 06/28/16 08:45 07/12/16 08:44 06/29/16 05:53 0.5 MG Ciprofloxacin/ Dextrose/Prmx (Cipro / D5w/ Premixed D5W) 200 ml @ 100 mls/hr Q12H IV 06/28/16 11:00 06/30/16 10:59 06/28/16 23:47 100 MLS/HR Miscellaneous 1 ea 1 ea PRN PRN N/A 06/28/16 10:45 06/28/17 10:44 Potassium Chloride/Dextrose/ Sod Cl (D5nss + 20meq KCl) 1,000 ml @ 125 mls/hr Q8H IV 06/28/16 21:30 07/28/16 21:29 06/29/16 05:19 125 MLS/HR Fentanyl Citrate (Fentanyl Inj) 25 mcg Q5M PRN IV 06/29/16 07:30 06/29/16 12:30 Ondansetron HCl (Zofran Inj) 4 mg ONE PRN IV 06/29/16 07:30 06/29/16 12:30 Atropine Sulfate (Atropine Sulfate 0.1MG/Ml Inj) 0.5 mg Q1M PRN IV 06/29/16 07:30 06/29/16 12:30
--- NOTE | 2016-06-29 09:20 | Surgery Progress Note ---
Surgery Progress Note Date of Service Jun 29, 2016. Subjective + feeling well, No nausea, No vomiting Denies pain Objective Vital Signs: Date Time Temp Pulse Resp B/P Pulse Ox O2 Delivery O2 Flow Rate FiO2 06/29/16 07:53 36.7 61 14 98/54 97 Room Air 06/28/16 23:50 Room Air 06/28/16 23:17 36.6 81 17 103/63 94 Room Air 06/28/16 16:10 96 Room Air 06/28/16 15:23 36.6 56 16 112/65 96 Room Air 06/28/16 11:03 Room Air 06/28/16 10:08 64 16 115/65 95 Room Air Abdomen: normal bowel sounds, non tender, non distended, soft Laboratory Results: Results Past 24 Hours Test 06/29/16 07:01 Range/Units White Blood Count 6.67 4.8-10.8 K/uL Red Blood Count 3.98 4.7-6.1 M/uL Hemoglobin 13.1 14.0-18.0 g/dL Hematocrit 38.6 42-52 % Mean Corpuscular Volume 97.0 80-100 fL Mean Corpuscular Hemoglobin 32.9 25-34 pg Mean Corpuscular Hemoglobin Concent 33.9 32-36 g/dl Platelet Count 76 130-400 K/uL Mean Platelet Volume 10.5 7.4-10.4 fL Neutrophils (%) (Auto) 67.9 % Lymphocytes (%) (Auto) 19.3 % Monocytes (%) (Auto) 11.1 % Eosinophils (%) (Auto) 1.5 % Basophils (%) (Auto) 0.1 % Neutrophils # (Auto) 4.52 1.4-6.5 K/uL Lymphocytes # (Auto) 1.29 1.2-3.4 K/uL Monocytes # (Auto) 0.74 0.11-0.59 K/uL Eosinophils # (Auto) 0.10 0-0.5 K/uL Basophils # (Auto) 0.01 0-0.2 K/uL RDW Standard Deviation 43.7 36.4-46.3 fL RDW Coefficient of Variation 12.3 11.5-14.5 % Immature Granulocyte % (Auto) 0.1 % Immature Granulocyte # (Auto) 0.01 0.00-0.02 K/uL Prothrombin Time 21.9 9.0-12.0 SECONDS Prothromb Time International Ratio 2.0 0.9-1.1 Sodium Level 141 136-145 mmol/L Potassium Level 4.0 3.5-5.1 mmol/L Chloride Level 108 98-107 mmol/L Carbon Dioxide Level 26 21-32 mmol/L Anion Gap 7.0 3-11 mmol/L Blood Urea Nitrogen 8 7-18 mg/dl Creatinine 0.80 0.60-1.40 mg/dl Est Creatinine Clear Calc Drug Dose 84.9 ml/min Estimated GFR () 102.7 Estimated GFR (Non- 88.6 BUN/Creatinine Ratio 10.4 10-20 Random Glucose 117 70-99 mg/dl Calcium Level 7.7 8.5-10.1 mg/dl Total Bilirubin 1.5 0.2-1 mg/dl Aspartate Amino Transf (AST/SGOT) 12 15-37 U/L Alanine Aminotransferase (ALT/SGPT) 13 12-78 U/L Alkaline Phosphatase 63 45-117 U/L Total Protein 5.5 6.4-8.2 gm/dl Albumin 2.8 3.4-5.0 gm/dl Globulin 2.7 2.5-4.0 gm/dl Albumin/Globulin Ratio 1.0 0.9-2 Lipase 163 73-393 U/L Assessment & Plan Cholelithiasis, acute cholecystitis Pain resolving For lap elba today if INR decreases to below 1.5 FFP ordered Total Bili 1.5, will add cholangiogram to procedure
[2016-06-29] MEDS: CIPROFLOXACIN / D5W 400 MG in PREMIXED IN D5W 200 ML IV SCH ×3 (11:00→22:45)
[2016-06-29] MEDS ORDERED: HYDR2TAB48 PO (11:29)
[2016-06-29] MEDS ORDERED: HEPARIN SOD (PORCINE) 5000 UNIT/ML 1 ML VIAL ONE (11:33)
[2016-06-29] MEDS ORDERED: CEFAZOLIN SOD 1 GM VIAL ONE (11:33)
--- NOTE | 2016-06-29 11:33 | Discharge Instructions ---
Discharge Instructions Admission Reason for Admission: Acute Cholecystitis Discharge Discharge Diagnosis / Problem: S/p Laparoscopic Cholecystectomy Discharge Goals Goal(s): Decrease discomfort Activity Recommendations Activity Limitations: as noted below No heavy lifting over 20 pounds for 2 weeks walking is encouraged no strenuous activity until cleared by surgeon No driving while taking narcotic pain medication or until you are pain free whichever comes first . Instructions / Follow-Up Instructions / Follow-Up You may remove dressings in 24 hours and then shower no submerging incision underwater for 2 weeks Follow-up in surgical office in 2 weeks Please call [phone] to make an appointment If you develop increasing abdominal pain, nausea, vomiting, incisional redness/ drainage/bleeding please call office or if severe go to emergency department for further evaluation Current Hospital Diet Patient's current hospital diet: Clear Liquid Diet Discharge Diet Recommended Diet: Regular Diet Procedures Procedures Performed: Laparoscopic Cholecystectomy Pending Studies Studies pending at discharge: no Medical Emergencies . Who to Call and When: Medical Emergencies: If at any time you feel your situation is an emergency, please call 911 immediately. . Non-Emergent Contact Non-Emergency issues call your: Primary Care Provider, Surgeon Call Non-Emergent contact if: temperature is above 101.5, your pain is not controlled, your pain is worsening, wound has increased drainage, wound has increased redness, wound has increased pain . "Provider Documentation" section prepared by Brandi Rudd. VTE Core Measure Inpt VTE Proph given/why not?: SCD's [place] Drug Monitoring Program Search Results: patient reviewed within database, no issues identified
[2016-06-29] MEDS ORDERED: BUPIVACAINE 0.5 % 5 MG/1 ML MPF 30ML VIAL ONE (11:34)
[2016-06-29] MEDS ORDERED: FENTANYL CITRATE INJ 50 MCG/1 ML 2 ML VIAL ONE ×3 (12:33→16:33)
[2016-06-29] MEDS ORDERED: MIDAZOLAM HCL 1 MG/ML 2ML VIAL ONE ×2 (12:34→13:33)
[2016-06-29 13:33] LABS: INR 1.4 (0.9-1.1); PARTIAL THROMBOPLASTIN RATIO 1.4; PROTHROMBIN TIME (PATIENT) 15.7 SECONDS (9.0-12.0)
[2016-06-29] MEDS ORDERED: NURSING VERBAL MED ORDER ONE (13:45)
[2016-06-29] MEDS ORDERED: GLYCOPYRROLATE INJ 0.2 MG/ML VIAL ONE (14:23)
[2016-06-29] MEDS ORDERED: ROCURONIUM BROMIDE 10 MG/ML 5 ML VIAL ONE (14:23)
[2016-06-29] MEDS ORDERED: ONDANSETRON INJ 2 MG/ML 2 ML VIAL ONE (14:23)
[2016-06-29] MEDS ORDERED: LIDOCAINE HCL 2% 2 ML VIAL (20MG/ML) ONE (14:23)
[2016-06-29] MEDS ORDERED: NEOSTIGMINE METHYLSULFATE 5 MG/5 ML SYR ONE (14:23)
[2016-06-29] MEDS ORDERED: DEXAMETHASONE SOD INJ 4 MG/ML VIAL ONE (14:23)
[2016-06-29] MEDS ORDERED: PROPOFOL IV EMULSION 10 MG/ML 20 ML VIAL IV ONE (14:23)
[2016-06-29] MEDS ORDERED: PHENYLEPHRINE 100MCG/ML 5ML SYR ONE (14:24)
[2016-06-29] MEDS ORDERED: EpHEDrine SULFATE 50MG/5ML SYR ONE (14:24)
[2016-06-29] MEDS ORDERED: CONRAY 60% 50 ML VIAL INSTIL ONE (15:09)
--- NOTE | 2016-06-29 15:50 | DIAGNOSTIC IMAGING REPORT ---
CHOLANGIOGRAM O.R. CLINICAL HISTORY: Intraoperative study during cholecystectomy. COMPARISON STUDY: Gallbladder ultrasound dated June 28, 2016 FLUOROSCOPY TIME: 23 seconds. 5 fluoroscopic spot images were acquired. FINDINGS: 5 intraoperative fluoroscopic spot images are provided for interpretation. Contrast was instilled into the common bile duct. The common bile duct is of normal caliber. There is free flow into the duodenum. There are no filling defects identified. There is a small amount of reflux the proximal pancreatic duct, which appears mildly dilated. This dilatation may be secondary to the pressure of injection. IMPRESSION: No calculi are visualized. Free flow into the duodenum. Electronically signed by: Josue Cuellar M.D. 06/29/2016 3:48 PM Dictated Date/Time: 06/29/2016 3:46 PM
[2016-06-29] MEDS ORDERED: CEFAZOLIN 1 GM IRRIG ONE (16:02)
--- NOTE | 2016-06-29 16:25 | [facility] Post Operative Brief Note ---
Immediate Operative Summary Operative Date Jun 29, 2016. Pre-Operative Diagnosis Cholelithiasis, acute cholecystitis Post-Operative Diagnosis same Procedure(s) Performed laparoscopic cholecystectomy, with cholangiogram Surgeon Dr. [employer] Consult[employer] Surgeon(s) None Estimated Blood Loss 30ML Findings See dictation Specimens A. GALLBLADDER (PERMANENT) Drains One J-P in the subhepatic space Anesthesia General Complication(s) None Disposition Recovery Room / PACU
[2016-06-29] MEDS ORDERED: OXYCODONE/ACETAMINOPHEN 5-325 TAB PO PRN (16:30)
--- NOTE | 2016-06-29 17:10 | Anesthesiology Progress Note ---
Anesthesia Post Op Note Date & Time Jun 29, 2016 at 17:10 Vital Signs Pain Intensity: 1 Vital Signs Past 12 Hours Date Time Temp Pulse Resp B/P Pulse Ox O2 Delivery O2 Flow Rate FiO2 06/29/16 17:04 36.5 06/29/16 17:00 16 06/29/16 17:00 89 16 120/60 06/29/16 16:55 87 19 118/69 06/29/16 16:55 19 06/29/16 16:50 86 18 124/71 06/29/16 16:50 18 06/29/16 16:45 88 15 121/66 06/29/16 16:45 15 06/29/16 16:45 Nasal Cannula 3 06/29/16 16:40 84 18 06/29/16 16:40 85 18 115/61 93 06/29/16 16:35 20 06/29/16 16:35 88 20 119/69 06/29/16 16:34 121/70 06/29/16 16:25 36.6 90 16 121/70 98 Mask 10 06/29/16 13:14 37.0 94 18 119/79 93 06/29/16 13:14 37.0 67 18 119/79 94 06/29/16 12:56 36.8 65 20 116/64 93 06/29/16 12:32 37.2 71 14 111/62 94 06/29/16 12:03 37.1 60 17 106/64 93 06/29/16 11:30 37.4 65 14 111/62 93 06/29/16 11:00 37.1 67 16 112/67 94 06/29/16 10:45 37.3 66 18 114/63 06/29/16 10:10 97 Room Air 06/29/16 08:00 Room Air 06/29/16 07:53 36.7 61 14 98/54 97 Room Air Notes Mental Status: alert / awake / arousable, participated in evaluation Pt Amnestic to Procedure: Yes Nausea / Vomiting: adequately controlled Pain: adequately controlled Airway Patency, RR, SpO2: stable & adequate BP & HR: stable & adequate Hydration State: stable & adequate Anesthetic Complications: no major complications apparent Pt doing well.
--- NOTE | 2016-06-29 17:57 | OPERATIVE REPORT ---
DATE OF OPERATION: 06/29/2016 PREOPERATIVE DIAGNOSES: Cholelithiasis, acute cholecystitis. POSTOPERATIVE DIAGNOSIS: Same. PROCEDURE: Laparoscopic cholecystectomy with intraoperative cholangiogram. SURGEON: Dr. Carroll. FINDINGS: The gallbladder was markedly dilated. The wall was thickened. There were multiple stones within the lumen. The cystic duct was not dilated. The bile within the gallbladder was brown. The liver was of normal size and contour. Cholangiogram was performed. There was free flow into the radicals and into the duodenum. There was no evidence of intraluminal filling defects. The duct was not dilated. TECHNIQUE: The patient was given a general anesthetic and the area was prepped and draped in the usual sterile fashion. Transverse incision was made below the umbilicus, carried down through the subcutaneous tissue to the fascia which was grasped with 2 Blade clamps and incised between. The peritoneum was identified, incised, and the introducer was placed bluntly. The upper midline, mid clavicular and anterior axillary introducers were placed under direct vision through small skin incisions. I attempted to grasp the gallbladder, but was unable to do due to its thickened wall and dilatation. The drainage needle was passed under direct vision and was placed into the gallbladder. The gallbladder was drained and I was then able to grasp the gallbladder and place supralateral traction. There were adhesions of the omentum initially to the gallbladder and those were taken down using blunt and cautery dissection. There were few adhesions to the undersurface of the liver that were taken down, so as to not tear the capsule. Over the infundibulum area the duodenum was adherent. The adhesions were fairly flimsy and were taken down with only blunt dissection until the infundibulum was completely identified. I was then able to identify the infundibulum and elevate the infundibulum and divide attachments to the liver on the lateral side. I then opened the peritoneum on the lateral side, the infundibulum away from the liver on that side, then performed a similar dissection in the triangle of Calot. There was some thickened lymphatics and thickened connective tissue around the infundibulum that were peeled down towards the common bile duct. Some of that dissection required meticulous millimeter by millimeter dissection. I eventually was able to identify the cystic duct and isolate it on the lateral side by connective tissue and lymphatics. I was then able to perform a similar dissection on the medial side. There were some thickened tissue adherent to the posterior side and required dissection there, but I was eventually able to identify and isolate the cystic duct 360 degrees. I was able to identify the cystic duct gallbladder junction. The cystic duct was clamped at the cystic duct gallbladder junction and partially transected. A cholangiocatheter was placed intraluminally. There was no leaking. Cholangiogram was performed with findings as above. The cholangiocatheter was removed and 2 clips were placed on the proximal cystic duct and transection was completed. I then performed some further dissection posterior to where the cystic duct had been, elevating the infundibulum and lower portion of the body which allowed me to identify the cystic artery. It was isolated. Two clips placed proximally, one near the gallbladder and it was divided. The gallbladder was then peeled off the liver bed using electrocautery. There was not a well defined plane of dissection and it required meticulous careful millimeter by millimeter dissection in some areas in order to separate the wall away from the liver, but I was eventually able to separate the liver completely. I placed the gallbladder into an Endobag and brought out through the upper midline incision where I had to open the gallbladder, remove the remaining bile and then remove the stones in order to extract it within the bag, but that was accomplished. The introducer was replaced and the liver edge was elevated. The subdiaphragmatic and subhepatic spaces were irrigated and irrigation was removed. The gallbladder bed of the liver was inspected. There were 4 areas of oozing that were controlled with cautery. The subdiaphragmatic and subhepatic spaces were further irrigated and the irrigation removed and that sequence was repeated until the return was clear. The clips were visualized and intact. The gallbladder bed of the liver was again inspected and there was no bleeding. A 10 mm flat Rob-Garza was brought out through the anterior axillary introducer site and placed in the subhepatic space. It was secured with a 3-0 nylon at the skin level. The gas was allowed to escape and the introducers were removed. The fascia of the umbilical and upper midline introducer sites was closed with interrupted 0 Vicryl and skin of all the incisions were closed with 4-0 Monocryl in either an interrupted or running subcuticular fashion. The skin was anesthetized with 0.5% Marcaine. The skin was cleansed, dried, benzoin placed, Steri-Strips applied. The estimated blood loss was 30 mL. Sponge, needle and instrument counts were correct prior to closure. The patient tolerated the surgical procedure without complication and was transferred to recovery. I attest to the content of the Intraoperative Record and any orders documented therein. Any exceptio ns are noted below.
[2016-06-29] MEDS: HYDROmorphone INJ 1 MG/ML SYR IV PRN ×2 (19:44→21:57)
[2016-06-30 03:14] VITALS: BP 107/64; PULSE 87; TEMP 36.5; O2SAT 93
[2016-06-30] MEDS: D5NSS + 20MEQ KCL 1,000 ML IV SCH (03:34)
[2016-06-30] MEDS: HYDROmorphone INJ 1 MG/ML SYR IV PRN (03:34)
--- NOTE | 2016-06-30 06:36 | Surgery Progress Note ---
Surgery Progress Note Date of Service Jun 30, 2016. Subjective feels ok- receiving significant dose of Dilaudid IV Objective Vital Signs: Date Time Temp Pulse Resp B/P Pulse Ox O2 Delivery O2 Flow Rate FiO2 06/30/16 03:14 36.5 87 12 107/64 93 Room Air 06/30/16 01:00 Room Air 06/29/16 23:14 36.6 79 14 122/72 94 Room Air 06/29/16 20:25 36.5 106 16 145/61 92 Room Air 06/29/16 19:28 36.5 102 16 153/70 93 Room Air 06/29/16 18:29 36.8 75 16 140/88 92 Nasal Cannula 2.0 06/29/16 17:55 37.1 75 16 124/76 92 Nasal Cannula 2.0 06/29/16 17:25 92 Nasal Cannula 3.0 06/29/16 17:25 37.1 85 18 115/67 92 Nasal Cannula 3.0 06/29/16 17:04 36.5 06/29/16 17:00 16 06/29/16 17:00 89 16 120/60 06/29/16 16:55 87 19 118/69 06/29/16 16:55 19 06/29/16 16:50 86 18 124/71 06/29/16 16:50 18 06/29/16 16:45 88 15 121/66 06/29/16 16:45 15 06/29/16 16:45 Nasal Cannula 3 06/29/16 16:40 84 18 06/29/16 16:40 85 18 115/61 93 06/29/16 16:35 20 06/29/16 16:35 88 20 119/69 06/29/16 16:34 121/70 06/29/16 16:25 36.6 90 16 121/70 98 Mask 10 06/29/16 13:14 37.0 94 18 119/79 93 06/29/16 13:14 37.0 67 18 119/79 94 06/29/16 12:56 36.8 65 20 116/64 93 06/29/16 12:32 37.2 71 14 111/62 94 06/29/16 12:03 37.1 60 17 106/64 93 06/29/16 11:30 37.4 65 14 111/62 93 06/29/16 11:00 37.1 67 16 112/67 94 06/29/16 10:45 37.3 66 18 114/63 06/29/16 10:10 97 Room Air 06/29/16 08:00 Room Air 06/29/16 07:53 36.7 61 14 98/54 97 Room Air General Appearance: no apparent distress Respiratory/Chest: no respiratory distress Abdomen: soft Incision(s): intact, drainage (serosang- expected) Laboratory Results: Results Past 24 Hours Test 06/29/16 07:01 06/29/16 13:16 Range/Units White Blood Count 6.67 4.8-10.8 K/uL Red Blood Count 3.98 4.7-6.1 M/uL Hemoglobin 13.1 14.0-18.0 g/dL Hematocrit 38.6 42-52 % Mean Corpuscular Volume 97.0 80-100 fL Mean Corpuscular Hemoglobin 32.9 25-34 pg Mean Corpuscular Hemoglobin Concent 33.9 32-36 g/dl Platelet Count 76 130-400 K/uL Mean Platelet Volume 10.5 7.4-10.4 fL Neutrophils (%) (Auto) 67.9 % Lymphocytes (%) (Auto) 19.3 % Monocytes (%) (Auto) 11.1 % Eosinophils (%) (Auto) 1.5 % Basophils (%) (Auto) 0.1 % Neutrophils # (Auto) 4.52 1.4-6.5 K/uL Lymphocytes # (Auto) 1.29 1.2-3.4 K/uL Monocytes # (Auto) 0.74 0.11-0.59 K/uL Eosinophils # (Auto) 0.10 0-0.5 K/uL Basophils # (Auto) 0.01 0-0.2 K/uL RDW Standard Deviation 43.7 36.4-46.3 fL RDW Coefficient of Variation 12.3 11.5-14.5 % Immature Granulocyte % (Auto) 0.1 % Immature Granulocyte # (Auto) 0.01 0.00-0.02 K/uL Prothrombin Time 21.9 15.7 9.0-12.0 SECONDS Prothromb Time International Ratio 2.0 1.4 0.9-1.1 Sodium Level 141 136-145 mmol/L Potassium Level 4.0 3.5-5.1 mmol/L Chloride Level 108 98-107 mmol/L Carbon Dioxide Level 26 21-32 mmol/L Anion Gap 7.0 3-11 mmol/L Blood Urea Nitrogen 8 7-18 mg/dl Creatinine 0.80 0.60-1.40 mg/dl Est Creatinine Clear Calc Drug Dose 84.9 ml/min Estimated GFR () 102.7 Estimated GFR (Non- 88.6 BUN/Creatinine Ratio 10.4 10-20 Random Glucose 117 70-99 mg/dl Calcium Level 7.7 8.5-10.1 mg/dl Total Bilirubin 1.5 0.2-1 mg/dl Aspartate Amino Transf (AST/SGOT) 12 15-37 U/L Alanine Aminotransferase (ALT/SGPT) 13 12-78 U/L Alkaline Phosphatase 63 45-117 U/L Total Protein 5.5 6.4-8.2 gm/dl Albumin 2.8 3.4-5.0 gm/dl Globulin 2.7 2.5-4.0 gm/dl Albumin/Globulin Ratio 1.0 0.9-2 Lipase 163 73-393 U/L Activated Partial Thromboplast Time 35.4 21.0-31.0 SECONDS Partial Thromboplastin Ratio 1.4 Assessment & Plan 06/30/16- s/p lap elba- will try po dilaudid and d/c home if tolerated leave drain- f/u with Dr Carroll
[2016-06-30 07:06] VITALS: BP 118/66; PULSE 56; TEMP 36.3; O2SAT 90
[2016-06-30] MEDS: HYDROmorphone HCL 2 MG TAB PO PRN ×2 (08:24→12:42)
[2016-06-30] MEDS ORDERED: TRAMADOL HCL 50 MG TAB PO PRN (09:00)
[2016-06-30 09:29] LABS: HEMATOCRIT 38.4 % (42-52); MEAN CELL VOLUME 98.7 fL (80-100); MEAN CORPUSCULAR HEMOGLOBIN 33.9 pg (25-34); MEAN CORPUSCULAR HGB CONC 34.4 g/dl (32-36); RED BLOOD COUNT 3.89 M/uL (4.7-6.1); WHITE BLOOD COUNT 10.36 K/uL (4.8-10.8)
[2016-06-30 09:53] LABS: BUN/CREATININE RATIO 8.7 (10-20); CALCIUM 8.2 mg/dl (8.5-10.1); CREATININE 0.84 mg/dl (0.60-1.40); POTASSIUM 4.2 mmol/L (3.5-5.1)
[2016-06-30 09:58] LABS: MEAN PLATELET VOLUME 11.3 fL (7.4-10.4); PLATELET COUNT 68 K/uL (130-400)
[2016-06-30 09:59] LABS: COMPLETE YES; IG% 0.2 %; LYMPH % 6.5 %; LYMPH ABS # 0.67 K/uL (1.2-3.4); MONO % 6.2 %; NEUT % 87.1 %
[2016-06-30 11:02] VITALS: BP 118/66; PULSE 56; TEMP 36.3; O2SAT 90
--- NOTE | 2016-06-30 14:13 | Progress Note ---
Medicine Progress Note Date & Time of Visit: Jun 30, 2016 at 14:09. Subjective seen sitting up in bedside chair comfortable states he feels fine and is ready to go home denies abdominal pain ,nausea no chest pain, dyspnea, dizziness, nausea no other symptoms Objective Last 8 Hrs Date Time Temp Pulse Resp B/P Pulse Ox O2 Delivery O2 Flow Rate FiO2 06/30/16 11:02 36.3 56 19 90 Room Air 06/30/16 07:06 36.3 56 19 118/66 90 Room Air Physical Exam: General- oriented x 3, not in distress, speaks in sentences with no effort Eyes- anicteric Neck- no JVD Lungs- clear breath sounds bilaterally, no rales/wheezes Heart- normal rate, regular rhythm; no murmurs Abdomen- non distended Extremities- no pretibial edema, no calf tenderness Neuro- alert, oriented x 3; no gross focal deficits Skin- warm & dry Laboratory Results: Last 24 Hours Test 06/30/16 09:15 White Blood Count 10.36 K/uL Red Blood Count 3.89 M/uL Hemoglobin 13.2 g/dL Hematocrit 38.4 % Mean Corpuscular Volume 98.7 fL Mean Corpuscular Hemoglobin 33.9 pg Mean Corpuscular Hemoglobin Concent 34.4 g/dl Platelet Count 68 K/uL Mean Platelet Volume 11.3 fL Neutrophils (%) (Auto) 87.1 % Lymphocytes (%) (Auto) 6.5 % Monocytes (%) (Auto) 6.2 % Eosinophils (%) (Auto) 0.0 % Basophils (%) (Auto) 0.0 % Neutrophils # (Auto) 9.03 K/uL Lymphocytes # (Auto) 0.67 K/uL Monocytes # (Auto) 0.64 K/uL Eosinophils # (Auto) 0.00 K/uL Basophils # (Auto) 0.00 K/uL RDW Standard Deviation 44.9 fL RDW Coefficient of Variation 12.4 % Immature Granulocyte % (Auto) 0.2 % Immature Granulocyte # (Auto) 0.02 K/uL Sodium Level 141 mmol/L Potassium Level 4.2 mmol/L Chloride Level 107 mmol/L Carbon Dioxide Level 28 mmol/L Anion Gap 6.0 mmol/L Blood Urea Nitrogen 7 mg/dl Creatinine 0.84 mg/dl Est Creatinine Clear Calc Drug Dose 80.9 ml/min Estimated GFR () 100.7 Estimated GFR (Non- 86.9 BUN/Creatinine Ratio 8.7 Random Glucose 167 mg/dl Calcium Level 8.2 mg/dl Magnesium Level 2.0 mg/dl Assessment & Plan ACUTE CHOLECYSTITIS - no medical contraindication for discharge today 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 Willams, he recommends coumadin only for now discussed with patient and , advised to resume usual coumadin dose today, ff up with Pharmacy on Saturday Thrombocytopenia - chronic as per patient - no signs of bleeding - Plt usually in the 90k Plt 68 on discharge day 06/30/16 repeat CBC as outpatient next week PSVT History - not on medications DIASTOLIC DYSFUNCTION - echo 06/2015 - EF 55-50%, grade I diastolic dysfunction - euvolemic Current Inpatient Medications: Current Inpatient Medications Medications (Trade) Dose Ordered Sig/Benjamin Route Start Time Stop Time Status Last Admin Dose Admin Ondansetron HCl (Zofran Inj) 4 mg Q4H PRN IV 06/28/16 08:45 07/28/16 08:44 Miscellaneous (Iv Fluids Completed) 1 ea PRN PRN N/A 06/28/16 10:45 06/28/17 10:44 Oxycodone/ Acetaminophen (Percocet 5-325mg Tab) 1 tab Q4H PRN PO 06/29/16 16:30 07/13/16 16:29 Tramadol HCl (Ultram Tab) 50-100 MG Q3R PRN PO 06/30/16 09:00 07/30/16 08:59 Hydromorphone HCl (Dilaudid Tab) 1-2 MG Q3HWA PRN PO 06/30/16 06:45 07/14/16 06:44 06/30/16 12:42 2 MG
--- NOTE | 2016-07-09 11:49 | Discharge Summary ---
"Discharge Summary Dates Admission Date / Time: Jun 29, 2016 at 09:21 Discharge Date: Jun 30, 2016 Dispostion / Condition Discharge Disposition: Home Condition at Discharge: Good Principal Diagnosis (1) Cholecystitis with cholelithiasis Problem List (1) Cholecystitis with cholelithiasis (2) DVT (deep venous thrombosis) (3) Thrombocytopenia (4) Diastolic CHF (5) PSVT (paroxysmal supraventricular tachycardia) Consultations / Procedures Consultations: Medicine Procedures: Laparoscopic Cholecystectomy with Intraoperative cholangiogram Pending Studies / Follow-Up None Medication Reconciliation New Medications: Hydromorphone Hcl (Dilaudid) 2 Mg Tab 1 TAB PO QID PRN for Pain for 30 Days, #18 TAB Continued Medications: Cholecalciferol (Vitamin D3) 1,000 Unit Tab 1000 INTUNIT PO DAILY for 90 Days, TAB 3 Refills Cyanocobalamin (Vitamin B-12 250 Mcg) 250 Mcg Tab 500 MCG PO DAILY, TAB Cyclobenzaprine Hcl (Flexeril) 10 Mg Tab 10 MG PO TID PRN for muscle spasms, #21 TAB Fluticasone Propionate (Nasal) (Flonase Allergy Relief) 50 Mcg/Act Spr 2 SPRAYS FARAZ DAILY Mupirocin 2% (Bactroban 2%) 30 Gm Cr 1 APPLN EXT UD PRN for skin irritation, TUBE Nystatin/Triamcinolone (Mycogen || ) Cr 1 APPLN EXT DIRECTED PRN for Affected Skin Folds Psyllium (Konsyl-D) 52.3 % Pow 2 TSP PO BID Warfarin Sod (Jantoven) 2.5 Mg Tab 3.75 MG PO UD, TAB Saturday and Saturday Warfarin Sod (Coumadin) 2.5 Mg Tab 2.5 MG PO UD, TAB all days except Saturday and Zolpidem Tartrate (Ambien) 10 Mg Tab 5 MG PO HS PRN for Sleep Admission HPI Per the Admitting provider: Alec is a 75 year-old male with history of DVT, HTN , diastolic heart failure, a- fib, and PSVT who presented to emergency department early this morning with complaint of sudden back pain and right upper sided abdominal pain that woke him up in bed around 10 pm. States he felt nauseated and felt like he had to vomit but nothing came up more than a lot of gas. Denies of any similar previous episodes of pain. No associated change in bowel habits, diarrhea, constipation, blood in stools, black/tarry stools, or acholic stools. Denies of any history of gallbladder problems. Denies of any fever, chills, night sweats, chest pain, shortness of breath, difficulty breathing, or palpitations. Mother had her gallbladder removed in her 70's. No other family history of gallbladder problems. 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 No other blood thinning agents. CT scan of abdomen and pelvis showed distended gallbladder and possible edema surrounding gallbladder US shows gallbladder wall thickening as well as gallstones and gallbladder sludge, CBD within normal caliber No leukocytosis, Total and direct bili wnl, LFTs wnl, and lipase wnl PT/INR 26.5/2.4 respectively Admission Exam Per the Admitting provider: General Appearance: WD/WN, no apparent distress Head: normocephalic, atraumatic Eyes: EOMI, sclerae normal ENT: hearing grossly normal Neck: supple, trachea midline Respiratory/Chest: lungs clear, normal breath sounds, no respiratory distress, no accessory muscle use Cardiovascular: no murmur, + irregularly irregular Abdomen/GI: non tender, soft, no organomegaly, no pulsatile mass, + abnormal bowel sounds (hypoactive) Back: normal inspection Extremities/Musculoskelatal: no pedal edema Neurologic/Psych: alert, normal mood/affect, oriented x 3 Skin: normal color, warm/dry, no rash Hospital Course (1) Cholecystitis with cholelithiasis Patient was admitted to our service and hospitalist was consulted given patients elevated INR. History of DVT and takes Coumadin at home. He was started on IV fluids, IV antibiotics, IV pain medication prn, and clear liquids. Medicine ordered 5 mg of Vitamin K to reverse his INR and repeat PT/ INR levels in the morning on 06/29/12. His INR was 2.1 the morning of proposed surgery and was given 2 units of FFP. His INR pre-operatively was 1.5. Alec's total bilirubin increased to 1.5 on 06/29/12 therefore an intraoperative cholangiogram was added to the procedure. He underwent laparoscopic cholecystectomy with IOC with no complications. A [place] drain was placed. He tolerated procedure well and was transferred back to Med/Surg floor under stable condition. His pain was controlled with po Dilaudid and was tolerating regular diet. He was discharged on POD # 1 and HD # 2. Overall hospital course was uneventful. Discharge Instructions As given to patient. Copies To Primary Care Provider: Jacky Reza MD. Problem Qualifiers (1) Cholecystitis with cholelithiasis: Cholelithiasis location: gallbladder Cholecystitis acuity: acute Biliary obstruction: without biliary obstruction Qualified Codes: K80.00 - Calculus of gallbladder with acute cholecystitis without obstruction"
[2016-12-12] MEDS ORDERED: LIFI5DRO OPB (15:58)
== END 2016-06-30 15:05 | disposition home or self-care (01) | DRG 418 ==
LOC: ENRESERVDT → ENRESERVTM → C.EDA 03:00 → C.MSW 08:47 → OBSVTOIN 06-29 09:21
PROVIDERS: ADMIT Surgery; ATTEND Surgery
PROC: BF140ZZ Fluoroscopy of Gallbladder, Bile Ducts and Pancreatic Ducts using High Osmolar Contrast (ICD-10-PCS; principal; 2016-06-29 13:00)
PROC: 0FT44ZZ Resection of Gallbladder, Percutaneous Endoscopic Approach (ICD-10-PCS; principal; 2016-06-29 13:00)
DX: K80.00 Calculus of gallbladder with acute cholecystitis without obstruction (principal); I50.30 Unspecified diastolic (congestive) heart failure; I47.1 Supraventricular tachycardia; K82.8 Other specified diseases of gallbladder; I48.91 Unspecified atrial fibrillation; I11.0 Hypertensive heart disease with heart failure; D69.6 Thrombocytopenia, unspecified; M19.90 Unspecified osteoarthritis, unspecified site; E66.9 Obesity, unspecified; Z68.27 Body mass index [BMI] 27.0-27.9, adult; Z86.718 Personal history of other venous thrombosis and embolism; Z79.01 Long term (current) use of anticoagulants; Z79.891 Long term (current) use of opiate analgesic; Z79.899 Other long term (current) drug therapy

== ENCOUNTER 2016-12-10 19:30 | Emergency (ER) | payer OTHER ==
[~2016-12-10] VITALS: Ht 177.8 cm; Wt 88.2 kg
[~2016-12-10 19:30] MED LIST changes: +BCTCR/30 EXT; -BCTROWC EXT; +CHOL1000 PO; -CHOL100010 PO; -CLR10 PO; +CMD/25 PO; -FLUT0.0529 NAE; +FLUT0.15 NAE; -PSYL55.43 PO; -WARF5TAB7 PO; +[UNRECOGNIZED DRUG - CODE] PO
[2016-12-10 19:33] VITALS: TEMP 36.7; Ht 177.8 cm; Wt 88.2 kg
--- NOTE | 2016-12-10 19:53 | EMERGENCY ROOM VISIT NOTE ---
ED Visit Note First contact with patient: 19:36 I did evaluate and examine this patient myself. I did guide management for the patient. I agree with the APC's assessment as discussed. Please see the APC's dictation for further details. I did independently review the blood work.
[2016-12-10 20:17] LABS: INR 2.5 (0.9-1.1); PARTIAL THROMBOPLASTIN RATIO 1.5; PROTHROMBIN TIME (PATIENT) 27.6 SECONDS (9.0-12.0)
--- NOTE | 2016-12-10 20:31 | EMERGENCY ROOM VISIT NOTE ---
"History First contact with patient: 19:36 Chief Complaint: DENTAL PAIN Stated Complaint: HEMATOMA IN MOUTH Nursing Triage Summary: pt reports I am on blood thinner and a hematoma formed in my mouth this AM pt reports started on Xiidra eye gtts 25 days ago History of Present Illness The patient is a 76 year old male who presents to the Emergency Room with complaints of a hematoma that formed in his mouth this morning. He states it started getting larger for approximately an hour and a half and now it has stayed the same size. The patient does admit that he had bleeding of his gums in the past and his INR was elevated at 3.8. The patient's INR is supposed to be around 2.3. The patient states that he gets his INR checked every 5 weeks. He is due to get his INR checked on Saturday. The patient currently takes Coumadin 2.5 mg Saturday and 3.75 mg Saturday and Saturday. His last INR was therapeutic. The patient denies any blood in his urine or any hematochezia or melena. Review of Systems 6 system review was performed and was negative unless stated otherwise in history of present illness. Past Medical/Surgical History Medical Problems: (1) Cholecystitis with cholelithiasis (2) Diastolic CHF (3) DVT (deep venous thrombosis) (4) PSVT (paroxysmal supraventricular tachycardia) (5) Rupture of kidney (6) Thrombocytopenia Surgical Problems: (1) eyelid surgery Family History Diabetes mellitus MOTHER FH: leukemia BROTHER Social History Smoking Status: Never Smoker Marital Status: Housing Status: lives with family Occupation Status: retired Current/Historical Medications Scheduled Cholecalciferol (Vitamin D3), 1,000 INTUNIT PO DAILY Cyanocobalamin (Vitamin B-12 250 Mcg), 500 MCG PO DAILY Fluticasone Propionate (Nasal) (Flonase Allergy Relief), 2 SPRAYS FARAZ DAILY Psyllium (Konsyl-D), 2 TSP PO BID Warfarin Sod (Jantoven), 3.75 MG PO UD Warfarin Sod (Coumadin), 2.5 MG PO UD Scheduled PRN Cyclobenzaprine Hcl (Flexeril), 10 MG PO TID PRN for muscle spasms Mupirocin 2% (Bactroban 2%), 1 APPLN EXT UD PRN for skin irritation Nystatin/Triamcinolone (Mycogen || ), 1 APPLN EXT DIRECTED PRN for Affected Skin Folds Zolpidem Tartrate (Ambien), 5 MG PO HS PRN for Sleep Physical Exam Vital Signs Date Time Temp Pulse Resp B/P (MAP) Pulse Ox O2 Delivery O2 Flow Rate FiO2 12/10/16 19:33 36.7 80 18 160/85 97 Room Air Physical Exam GENERAL: 76-year-old white male appears in no acute distress. MENTAL Status: Alert and oriented 3. EYES: Conjunctiva is pink MOUTH: There is a 1.5 cm bolus hematoma on the left buccal mucosa. No active bleeding noted. NECK: Supple, no lymphadenopathy noted. No carotid bruits noted. LUNGS: Clear auscultation without wheezes rales or rhonchi. CARDIAC: Regular rate and rhythm without murmur. Pulses is full and equal throughout. Medical Decision & Procedures Laboratory Results Test 12/10/16 18:50 Prothrombin Time 27.6 SECONDS (9.0-12.0) Prothromb Time International Ratio 2.5 (0.9-1.1) Activated Partial Thromboplast Time 39.8 SECONDS (21.0-31.0) Partial Thromboplastin Ratio 1.5 ED Course The patient was evaluated. Coags were ordered. The patient was independently evaluated by Dr. Still who agrees with treatment plan. The patient's INR was 2.5. The patient was informed of the findings. I also discussed with him to make sure Augie knows that he had labs today therefore he does not have to get them drawn again on Saturday. The verbalized understanding. The patient is concerned because he is to have a dental appointment tomorrow and is afraid if the hematoma breaks it will start bleeding any mobile to get it to stop. I lanced the hematoma with a small 23-gauge needle. Blood was expressed. It stopped bleeding immediately after the hematoma went down. The patient was given ice chips. The patient was discharged home in stable condition. Medical Decision The patient is on Coumadin and therefore his coags needed to be checked to make sure that his blood was not too thin. [place] Drug Monitoring Program Search Results: patient reviewed within database Medication Reconcilliation Current Medication List: was personally reviewed by me Blood Pressure Screening Patient's blood pressure: Elevated blood pressure Blood pressure disposition: Elevated BP felt to be situational Impression Primary Impression: Hematoma of oral cavity Departure Information Dispostion Home / Self-Care Condition GOOD Referrals Jacky Reza MD (PCP) Forms HOME CARE DOCUMENTATION FORM, IMPORTANT VISIT INFORMATION Patient Instructions My [facility] Additional Instructions Call your physician tomorrow to let them know that you had your INR drawn this evening in the emergency room and therefore he should not need to get lab work on Saturday. Ice chips to the affected area intermittently this evening. If you have any recurrent diffuse bleeding, return to ER immediately."
[2016-12-10 20:47] VITALS: BP 126/76; PULSE 73; O2SAT 96
[2016-12-12] MEDS ORDERED: LIFI5DRO OPB (15:58)
== END 2016-12-10 20:40 | disposition home or self-care (01) ==
LOC: C.EDB 19:32 → C.EDD 20:40
DX: S00.532A Contusion of oral cavity, initial encounter (principal); X58.XXXA Exposure to other specified factors, initial encounter; I50.30 Unspecified diastolic (congestive) heart failure; D69.6 Thrombocytopenia, unspecified; Z86.718 Personal history of other venous thrombosis and embolism; Z79.01 Long term (current) use of anticoagulants; Z79.899 Other long term (current) drug therapy; Z83.3 Family history of diabetes mellitus

== ENCOUNTER → 2016-12-19 | Day surgery (SDC) | payer OTHER ==
[2016-12-12 15:59] VITALS: Ht 177.8 cm; Wt 86.4 kg
[~2016-12-19] VITALS: Ht 177.8 cm; Wt 86.4 kg
[~2016-12-19] MED LIST changes: +500ML BSS 0.3ML EPI 1:1000PF IRRIG ONE; +ACETAMINOPHEN 325 MG TAB PO PRN; +AMVISC PLUS 0.8ML SYRINGE INT OCU ONE; +ATROPINE SULFATE 0.1 MG/ML 5ML SYR IV PRN; +AcetaZOLAMIDE 250 MG TAB PO SCH; +BETAXOLOL HCL 0.25% OP SUSP PER DROP CHARGE OPL SCH; +BRIMONIDINE TART 0.2% OP SOLN PER DROP CHARGE ONE; +BSS FLUSH ONE; +ENDOCOAT 0.85ML SYRINGE INT OCU ONE; +EpINEphrine INJ 1MG/ML AMP 1 MG/ML AMP ONE; +LACTATED RINGER'S 1000ML 500 ML IV SCH; +LIDOCAINE 4% OP SOLN DROP CHARGE ONE; +LIDOCAINE 4% OP SOLN DROP CHARGE OPL SCH; +LIDOCAINE HCL 1% MPF 2 ML VIAL ONE; +LIFI5DRO OPB; +MIDAZOLAM HCL 1 MG/ML 2ML VIAL ONE; +MIX: 4ML BSS 1ML EPI 1:1000 PF INSTIL ONE; +MOXIFLOXACIN OPH SOLN PER DROP CHARGE ONE; +OCUCOAT 1 ML SOLN IO ONE; +ONDANSETRON INJ 2 MG/ML 2 ML VIAL IV PRN; +PHENYLEPHRINE HCL 10% OP SOLN PER DROP CHARGE OPL SCH; +POVIDONE-IODINE OP SOLN 30 ML BTL ONE; +PROPARACAINE 0.5% OP SOLN PER DROP CHARGE OPL SCH; +PROPARACAINE HCL 0.5% OP SOLN 15 ML BTL OPL ONE; +TOBRAMYCIN/DEXAMETHASONE OPH OINT PER APPLN CHARGE ONE
--- NOTE | 2016-12-19 06:40 | History & Physical Bridge - [place] ---
H&P Re-Evaluation Bridge Note: I have examined the patient, reviewed the History & Physical and in the interval since the performance of the History & Physical I have noted the following changes of clinical significance: No changes noted
[2016-12-19] MEDS: PHENYLEPHRINE HCL 2.5% OP SOLN PER DROP CHARGE OPL SCH ×2 (07:32→07:37)
[2016-12-19] MEDS: TROPICAMIDE 1% OP SOLN PER DROP CHARGE OPL SCH ×2 (07:33→07:40)
[2016-12-19] MEDS: CYCLOPENTOLATE HCL 1% OP SOLN PER DROP CHARGE OPL SCH ×2 (07:34→07:41)
[2016-12-19] MEDS: MOXIFLOXACIN OPH SOLN PER DROP CHARGE OPL SCH ×2 (07:35→07:45)
--- NOTE | 2016-12-19 08:34 | Discharge Instructions-SurgCtr ---
Discharge Instructions Date of Service Dec 19, 2016. Visit Reason for Visit: Cataract Left Eye Discharge Discharge Diagnosis / Problem: lens implant left eye Discharge Goals Goal(s): Improve function Activity Recommendations Activity Limitations: resume your previous activity Lifting Limitations: no more than 10 pounds Exercise/Sports Limitations: gradually increase as tolerated May Resume Sexual Activity: when tolerated Shower/Bathe: tomorrow Driving or Machine Use: resume 1 day after discharge Anesthesia . Post Anesthesia Instructions: If you have had General Anesthesia or IV Sedation: * Do not drive today. * Resume driving when surgeon permits. * Do not make important decisions or sign legal documents today. * Call surgeon for: 1. Temperature elevations greater than 101 degrees F. 2. Uncontrollable pain. 3. Excessive bleeding. 4. Persistent nausea and vomiting. 5. Medication intolerance (nausea, vomiting or rash). * For nausea and vomiting use only clear liquids such as: tea, soda, bouillon until nausea subsides, then gradually increase diet as tolerated. * If you have any concerns or questions, call your surgeon's office. If physician is unavailable and it is an emergency, call 911 or go to the nearest emergency room. . Instructions / Follow-Up Instructions / Follow-Up ACTIVITY RECOMMENDATIONS: * Light activities. * Mild irritation and blurred vision are common for the first few days. * You may walk outside, read, watch television. * Redness around the white part of the eye is common. MEDICATIONS: Resume previous medications unless instructed otherwise by your surgeon. * Take white Diamox (Acetazolamide) tablet at 1 pm today. Start all eye drops at 1 pm today: * Eye drops (today and tomorrow): Prednisone - one drop in operative eye every 3 hours while awake Ofloxacin - one drop in operative eye every 3 hours while awake SPECIAL CARE INSTRUCTIONS: * Tape plastic shield over eye to sleep at night. Call your doctor at with any concerns or problems. FOLLOW UP VISIT: Follow-up with Dr England at [place] office as scheduled. Diet Recommendations Home Diet: no limitations Procedures Procedures Performed: cataract extraction with lens implant Pending Studies Studies pending at discharge: no Medical Emergencies . Who to Call and When: Medical Emergencies: If at any time you feel your situation is an emergency, please call 911 immediately. . Non-Emergent Contact Non-Emergency issues call your: Tipping Machine Operator Call Non-Emergent contact if: your pain is not controlled [phone] . . "Provider Documentation" section prepared by Agustin England. .
--- NOTE | 2016-12-19 08:38 | [facility] Operative Report ---
Operative Report Date of Service Dec 19, 2016. Operative Report 1. PREOPERATIVE DIAGNOSIS: Senile nuclear cataract, left eye. 2. POSTOPERATIVE DIAGNOSIS: Senile nuclear cataract, left eye. 3. PROCEDURE: Phacoemulsification of left cataract with posterior chamber lens implant, type Dickson, model [id number], power +26.0 diopters. ANESTHESIA: Local standby. SURGEON: Dr. England. COMPLICATIONS: None. OPERATING TIME: 10 minutes. 4. OPERATION AND FINDINGS: DESCRIPTION OF PROCEDURE: The left pupil was dilated. The patient was transported to the Femto Laser room. The Laser was used to make the primary incision, to open the capsule, and break up the cataract. Patient was transported to the operating room. The anesthetic was administered using a topical technique. The left eye was prepped and draped. A speculum was placed. A clear corneal incision was opened. The chamber was filled with Amvisc Plus and Endocoat. Epinephrine solution was used. A paracentesis was placed. The nucleus was hydrodissected. A dense lens was removed with phacoemulsification. Time was 8.60 seconds. The aspiration unit was used to remove the cortex. The capsule was filled with Amvisc Plus. The lens implant was folded and placed into the capsule. The lens implant was rotated to the correct position. The incision was hydrated. The Amvisc was aspirated. The wound was secure. The chamber was deep. The pupil was round. Brimonidine, TobraDex ointment and Vigamox solution were placed. The speculum was removed. The patient was returned to the Recovery Room in stable condition. I attest to the content of the Intraoperative Record and any orders documented therein. Any exceptions are noted below. The scribe's documentation has been prepared in my presence, under my direction and personally reviewed by me in its entirety. I confirm that the note above accurately reflects all work, treatment, procedures, and medical decision making performed by me. I personally scribed for Agustin England M.D. ([email or web address]) on 12/19/16 at 08:38. Electronically submitted by Angy Lewis ([email or web address]).
[2016-12-19 08:40] VITALS: TEMP 36.9
--- NOTE | 2016-12-19 08:54 | Anesthesia Progress Nt - [facility] ---
Anesthesia Post Op Note Date & Time Dec 19, 2016 at 08:54 Vital Signs Pain Intensity: 0 Vital Signs Past 12 Hours Date Time Temp Pulse Resp B/P (MAP) Pulse Ox O2 Delivery O2 Flow Rate FiO2 12/19/16 08:40 36.9 48 16 119/69 (86) 99 Room Air 12/19/16 08:16 57 18 132/78 95 12/19/16 08:13 55 18 138/74 94 12/19/16 07:19 36.6 53 22 111/73 (86) 99 Room Air Notes Mental Status: alert / awake / arousable, participated in evaluation Pt Amnestic to Procedure: Yes Nausea / Vomiting: adequately controlled Pain: adequately controlled Airway Patency, RR, SpO2: stable & adequate BP & HR: stable & adequate Hydration State: stable & adequate Anesthetic Complications: no major complications apparent
[2016-12-19 09:08] VITALS: BP 112/62; PULSE 58; O2SAT 98
== END | disposition home or self-care (01) ==
LOC: X.SURG 06:35
PROVIDERS: ATTEND Specialist
DX: H25.12 Age-related nuclear cataract, left eye (principal)

== ENCOUNTER → 2017-01-16 | Day surgery (SDC) | payer OTHER ==
[2017-01-01 15:46] VITALS: Ht 177.8 cm; Wt 86.4 kg
[~2017-01-16] VITALS: Ht 177.8 cm; Wt 86.4 kg
[~2017-01-16] MED LIST changes: -BETAXOLOL HCL 0.25% OP SUSP PER DROP CHARGE OPL SCH; +BETAXOLOL HCL 0.25% OP SUSP PER DROP CHARGE OPR SCH; +EpHEDrine SULFATE INJ 50 MG/ML AMP IV PRN; -LIDOCAINE 4% OP SOLN DROP CHARGE OPL SCH; +LIDOCAINE 4% OP SOLN DROP CHARGE OPR SCH; -ONDANSETRON INJ 2 MG/ML 2 ML VIAL IV PRN; -PHENYLEPHRINE HCL 10% OP SOLN PER DROP CHARGE OPL SCH; +PHENYLEPHRINE HCL 10% OP SOLN PER DROP CHARGE OPR SCH; -PROPARACAINE 0.5% OP SOLN PER DROP CHARGE OPL SCH; +PROPARACAINE 0.5% OP SOLN PER DROP CHARGE OPR SCH; -PROPARACAINE HCL 0.5% OP SOLN 15 ML BTL OPL ONE; +PROPARACAINE HCL 0.5% OP SOLN 15 ML BTL OPR ONE
[2017-01-16] MEDS: PHENYLEPHRINE HCL 2.5% OP SOLN PER DROP CHARGE OPR SCH ×2 (06:54→06:59)
[2017-01-16] MEDS: TROPICAMIDE 1% OP SOLN PER DROP CHARGE OPR SCH ×2 (06:55→07:00)
[2017-01-16] MEDS: CYCLOPENTOLATE HCL 1% OP SOLN PER DROP CHARGE OPR SCH ×2 (06:56→07:01)
[2017-01-16] MEDS: MOXIFLOXACIN OPH SOLN PER DROP CHARGE OPR SCH ×2 (06:57→07:07)
--- NOTE | 2017-01-16 08:05 | Discharge Instructions-SurgCtr ---
Discharge Instructions Date of Service Jan 16, 2017. Visit Reason for Visit: Right Cataract Discharge Discharge Diagnosis / Problem: lens implant right eye Discharge Goals Goal(s): Improve function Activity Recommendations Activity Limitations: resume your previous activity Lifting Limitations: no more than 10 pounds Exercise/Sports Limitations: gradually increase as tolerated May Resume Sexual Activity: when tolerated Shower/Bathe: tomorrow Driving or Machine Use: resume 1 day after discharge Anesthesia . Post Anesthesia Instructions: If you have had General Anesthesia or IV Sedation: * Do not drive today. * Resume driving when surgeon permits. * Do not make important decisions or sign legal documents today. * Call surgeon for: 1. Temperature elevations greater than 101 degrees F. 2. Uncontrollable pain. 3. Excessive bleeding. 4. Persistent nausea and vomiting. 5. Medication intolerance (nausea, vomiting or rash). * For nausea and vomiting use only clear liquids such as: tea, soda, bouillon until nausea subsides, then gradually increase diet as tolerated. * If you have any concerns or questions, call your surgeon's office. If physician is unavailable and it is an emergency, call 911 or go to the nearest emergency room. . Instructions / Follow-Up Instructions / Follow-Up ACTIVITY RECOMMENDATIONS: * Light activities. * Mild irritation and blurred vision are common for the first few days. * You may walk outside, read, watch television. * Redness around the white part of the eye is common. MEDICATIONS: Resume previous medications unless instructed otherwise by your surgeon. * Take white Diamox (Acetazolamide) tablet at 1 pm today. Start all eye drops at 1 pm today: * Eye drops (today and tomorrow): Prednisone - one drop in operative eye every 3 hours while awake Ofloxacin - one drop in operative eye every 3 hours while awake SPECIAL CARE INSTRUCTIONS: * Tape plastic shield over eye to sleep at night. Call your doctor at with any concerns or problems. FOLLOW UP VISIT: Follow-up with Dr England at [place] office as scheduled. Diet Recommendations Home Diet: no limitations Procedures Procedures Performed: RIGHT EYE FEMTOSECOND LASER Pending Studies Studies pending at discharge: no Medical Emergencies . Who to Call and When: Medical Emergencies: If at any time you feel your situation is an emergency, please call 911 immediately. . Non-Emergent Contact Non-Emergency issues call your: Neon Sign Servicer Call Non-Emergent contact if: your pain is not controlled [phone] . . "Provider Documentation" section prepared by Agustin England. .
--- NOTE | 2017-01-16 08:08 | [facility] Operative Report ---
Operative Report Date of Service Jan 16, 2017. Operative Report 1. PREOPERATIVE DIAGNOSIS: Senile nuclear cataract, right eye. 2. POSTOPERATIVE DIAGNOSIS: Senile nuclear cataract, right eye. 3. PROCEDURE: Phacoemulsification of right cataract with posterior chamber lens implant, type Dickson, model [id number], power +27.0 diopters. ANESTHESIA: Local standby. SURGEON: Dr. England. COMPLICATIONS: None. OPERATING TIME: 10 minutes. 4. OPERATION AND FINDINGS: DESCRIPTION OF PROCEDURE: The right pupil was dilated. The patient was transported to the Femto Laser room where the laser was used to make the primary incision, to open the capsule, and to break up the nucleus. The patient was then transported to the operating room. The anesthetic was administered using a topical technique. The right eye was prepped and draped. A speculum was placed. A clear corneal incision was formed. The chamber was filled with Amvisc Plus and Endocoat. Epinephrine solution was used. A paracentesis was placed. The nucleus was hydrodissected. A dense lens was removed with phacoemulsification. Time was 8.70 seconds. The aspiration unit was used to remove the cortex. The capsule was filled with Amvisc Plus. The lens implant was folded and placed into the capsule. The incision was hydrated. The Amvisc was aspirated. The wound was secure. The chamber was deep. The pupil was round. Brimonidine, TobraDex ointment and Vigamox solution were placed. The speculum was removed. The patient was returned to the Recovery Room in stable condition. I attest to the content of the Intraoperative Record and any orders documented therein. Any exceptions are noted below. The scribe's documentation has been prepared in my presence, under my direction and personally reviewed by me in its entirety. I confirm that the note above accurately reflects all work, treatment, procedures, and medical decision making performed by me. I personally scribed for Agustin England M.D. ([email or web address]) on 01/16/17 at 08:08. Electronically submitted by Angy JO).
--- NOTE | 2017-01-16 08:25 | Anesthesia Progress Nt - [facility] ---
Anesthesia Post Op Note Date & Time Jan 16, 2017 at 08:25 Vital Signs Pain Intensity: 0 Vital Signs Past 12 Hours Date Time Temp Pulse Resp B/P (MAP) Pulse Ox O2 Delivery O2 Flow Rate FiO2 01/16/17 08:18 36.7 57 16 116/70 (85) 98 Room Air 01/16/17 07:45 61 18 143/72 95 Room Air 01/16/17 07:39 62 16 139/79 96 Room Air 01/16/17 06:45 36.5 78 18 127/77 (94) 95 Room Air Notes Mental Status: alert / awake / arousable, participated in evaluation Pt Amnestic to Procedure: Yes Nausea / Vomiting: adequately controlled Pain: adequately controlled Airway Patency, RR, SpO2: stable & adequate BP & HR: stable & adequate Hydration State: stable & adequate Anesthetic Complications: no major complications apparent
[2017-01-16 08:35] VITALS: BP 115/71; PULSE 53; O2SAT 98
== END | disposition home or self-care (01) ==
LOC: X.SURG 06:23
PROVIDERS: ATTEND Specialist
DX: H25.11 Age-related nuclear cataract, right eye (principal); I10 Essential (primary) hypertension

== ENCOUNTER 2017-05-09 16:06 | Emergency (ER) | payer OTHER ==
[~2017-05-09] VITALS: Ht 177.8 cm; Wt 86.1 kg
[~2017-05-09 16:06] MED LIST changes: -500ML BSS 0.3ML EPI 1:1000PF IRRIG ONE; -ACETAMINOPHEN 325 MG TAB PO PRN; -AMVISC PLUS 0.8ML SYRINGE INT OCU ONE; -ATROPINE SULFATE 0.1 MG/ML 5ML SYR IV PRN; -AcetaZOLAMIDE 250 MG TAB PO SCH; -BETAXOLOL HCL 0.25% OP SUSP PER DROP CHARGE OPR SCH; -BRIMONIDINE TART 0.2% OP SOLN PER DROP CHARGE ONE; -BSS FLUSH ONE; -ENDOCOAT 0.85ML SYRINGE INT OCU ONE; -EpHEDrine SULFATE INJ 50 MG/ML AMP IV PRN; -EpINEphrine INJ 1MG/ML AMP 1 MG/ML AMP ONE; -LACTATED RINGER'S 1000ML 500 ML IV SCH; -LIDOCAINE 4% OP SOLN DROP CHARGE ONE; -LIDOCAINE 4% OP SOLN DROP CHARGE OPR SCH; -LIDOCAINE HCL 1% MPF 2 ML VIAL ONE; -MIDAZOLAM HCL 1 MG/ML 2ML VIAL ONE; -MIX: 4ML BSS 1ML EPI 1:1000 PF INSTIL ONE; -MOXIFLOXACIN OPH SOLN PER DROP CHARGE ONE; -OCUCOAT 1 ML SOLN IO ONE; -PHENYLEPHRINE HCL 10% OP SOLN PER DROP CHARGE OPR SCH; -POVIDONE-IODINE OP SOLN 30 ML BTL ONE; -PROPARACAINE 0.5% OP SOLN PER DROP CHARGE OPR SCH; -PROPARACAINE HCL 0.5% OP SOLN 15 ML BTL OPR ONE; -TOBRAMYCIN/DEXAMETHASONE OPH OINT PER APPLN CHARGE ONE
[2017-05-09 16:14] VITALS: TEMP 36.8; Ht 177.8 cm; Wt 86.1 kg
[2017-05-09] MEDS ORDERED: SODIUM CHLORIDE 0.9% 500ML 500 ML IV STA (16:35)
[2017-05-09] MEDS ORDERED: ACETAMINOPHEN 500 MG TAB PO STA (16:35)
--- NOTE | 2017-05-09 16:45 | EMERGENCY ROOM VISIT NOTE ---
History Report prepared by Jil: Daisy Torres Under the Supervision of: Dr. Kishor Kelly M.D. First contact with patient: 16:33 Chief Complaint: FALL Stated Complaint: FELL ON BACK History of Present Illness The patient is a 76 year old male who presents to the Emergency Room with complaints of an episodic mechanical fall 2 hours [employer]. He was shaking the post of a bird house and he fell backwards. He notes that he injured his back. He states that he felt nauseated and dizzy afterwards. He states that he took a bath afterward due to the back pain, though no relief. He reports worsened pain with breathing in his back. He currently rates his pain a 5/10 in severity. He notes that he did hit his head. He denies any LOC, head pain, neck pain, and leg pain. He has been taking Coumadin for 11 years due to a history of DVTs. Per , the patient's Coumadin level was 2.8 about a week ago. He has a history of shoulder surgery. He denies any hip surgery. He denies any history of kidney problems. Source of History: patient, spouse/significant other Onset: 2 hours [employer] Position: other (global ) Symptom Intensity: 5/10 Quality: other (fall) Timing: other (episodic) Modifying Factors (Worsening): breathing Associated Symptoms: + nausea, + back pain, No LOC, No neck pain Note: He notes dizziness. He denies any head pain or leg pain. Review of Systems See HPI for pertinent positives and negatives. A total of ten systems were reviewed and were otherwise negative. Past Medical & Surgical Medical Problems: (1) Cholecystitis with cholelithiasis (2) Diastolic CHF (3) DVT (deep venous thrombosis) (4) PSVT (paroxysmal supraventricular tachycardia) (5) Rupture of kidney (6) Thrombocytopenia Surgical Problems: (1) eyelid surgery Family History MOTHER Diabetes mellitus BROTHER FH: leukemia Social History Smoking Status: Never Smoker Smokeless Tobacco Use: No Alcohol Use: none Drug Use: none Marital Status: Housing Status: lives with family Occupation Status: retired Current/Historical Medications Scheduled Cholecalciferol (Vitamin D3), 1,000 INTUNIT PO QAM Cyanocobalamin (Vitamin B-12 250 Mcg), 500 MCG PO QAM Fluticasone Propionate (Nasal) (Flonase Allergy Relief), 2 SPRAYS FARAZ QAM Lifitegrast (Xiidra), 1 DROP OPB BID Psyllium (Konsyl-D), 2 TSP PO BID Warfarin Sod (Jantoven), 3.75 MG PO UD Warfarin Sod (Coumadin), 2.5 MG PO 5XWK Scheduled PRN Cyclobenzaprine Hcl (Flexeril), 10 MG PO TID PRN for muscle spasms Diazepam (Valium), 2 MG PO TID PRN for Muscle Spasms Mupirocin 2% (Bactroban 2%), 1 APPLN EXT UD PRN for skin irritation Nystatin/Triamcinolone (Mycogen || ), 1 APPLN EXT DIRECTED PRN for Affected Skin Folds Zolpidem Tartrate (Ambien), 5 MG PO HS PRN for Sleep Allergies Coded Allergies: Omeprazole (Verified Allergy, Severe, SVT, 05/09/17) Garlic (Verified Allergy, Intermediate, stomach cramp, diarrhea, 05/09/17) Naproxen (Verified Allergy, Intermediate, skin rash, 05/09/17) NSAIDs (Verified Allergy, Unknown, PT TAKES COUMADIN, 05/09/17) Hydrocodone (Verified Adverse Reaction, Intermediate, vomiting, 05/09/17) Loratadine (Verified Adverse Reaction, Intermediate, RACING HEART, 05/09/17 ) Onion (Verified Adverse Reaction, Intermediate, upset stomach/diarrhea, 03/16) Oxycodone (Verified Adverse Reaction, Intermediate, "KNOCKS ME OUT", ) Pseudoephedrine (Verified Adverse Reaction, Intermediate, RACING HEART, 03/16) Physical Exam Vital Signs Date Time Temp Pulse Resp B/P (MAP) Pulse Ox O2 Delivery O2 Flow Rate FiO2 05/09/17 20:30 84 18 100/66 96 Room Air 05/09/17 18:30 94 18 109/72 97 Room Air 05/09/17 18:04 74 108/74 95 05/09/17 17:29 85 05/09/17 16:14 36.8 63 18 116/63 98 Room Air Physical Exam GENERAL: Awake, alert, uncomfortable appearing, no distress. HEAD: Normocephalic, atraumatic. No shin sign. No raccoon eyes. EYES: Normal conjunctiva. PERRL. EARS: External ears normal. Right TM normal. Left TM normal. NOSE: Atraumatic OROPHARYNX: Lips, tongue, and mucosa unremarkable. No erythema or exudate. NECK: No tracheal deviation or JVD. No posterior midline tenderness. No step offs noted. RESPIRATORY: CTA bilaterally CARDIAC: Regular rate, normal rhythm. ABDOMEN: Inspection reveals no abnormalities. Soft, non distended. No tenderness to palpation. No hernias. BACK: No midline step offs. Mild tenderness in right paraspinal region in the T and L spine. PELVIS: Stable to rock. SKIN: Normal. LYMPH: No adenopathy. MUSCULOSKELETAL: Upper and lower extremities are atraumatic. Mild tenderness in the posterior lateral chest wall bilaterally. NEURO: GCS 15. Normal sensorium. No sensory or motor deficits noted. Medical Decision & Procedures ER Provider Diagnostic Interpretation: Radiology results as stated below per my review and radiologist interpretation: CHEST ONE VIEW PORTABLE CLINICAL HISTORY: ABDOMINAL PAIN/GI nausea COMPARISON STUDY: 06/28/2016 FINDINGS: Chronic parenchymal basilar fibrotic change. Heart top normal. Diaphragms are smooth. Upper lungs are entirely clear. IMPRESSION: Chronic change. No acute process. The above report was generated using voice recognition software. It may contain grammatical, syntax or spelling errors. Electronically signed by: Thomas Park M.D. 05/09/2017 5:54 PM Dictated Date/Time: 05/09/2017 5:53 PM CERVICAL SPINE W/O CT DOSE: 2675.41 mGy.cm HISTORY: Trauma. Pain. pain fall TECHNIQUE: Multiaxial CT images of the cervical spine were performed and reformatted in the sagittal and coronal plane without the use of contrast. A dose lowering technique was utilized adhering to the principles of ALARA. COMPARISON: None. FINDINGS: No fractures. No subluxation. Prevertebral soft tissues and the C1-C2 interval are intact. No pneumothorax. Generalized degenerative change IMPRESSION: No fractures within the cervical spine. Generalized degenerative change The above report was generated using voice recognition software. It may contain grammatical, syntax or spelling errors. Electronically signed by: Thomas Park M.D. 05/09/2017 6:26 PM Dictated Date/Time: 05/09/2017 6:[address] OF THE HEAD WITHOUT CONTRAST CLINICAL HISTORY: pain fall on coumadin COMPARISON STUDY: MRI of the brain September 09, 2014. TECHNIQUE: Helical axial images of the head were obtained without IV contrast. Automated exposure control was utilized for the study. A dose lowering technique was utilized adhering to the principles of ALARA. FINDINGS: No acute intracranial hemorrhage, midline shift or mass effect is present. A 4.4 x 2 cm CSF attenuation abnormality within the left middle cranial fossa represents an arachnoid cyst which is unchanged since MRI of September 09, 2014. Ventricular system is normal. Prominence of the extra-axial CSF spaces is unchanged and due to atrophy. There is no calvarial fracture. IMPRESSION: 1. No acute intracranial findings. No change in appearance of the brain. 2. No calvarial fracture. Electronically signed by: Lew Xie M.D. 05/09/2017 6:28 PM Dictated Date/Time: 05/09/2017 6:[address] OF THE CHEST WITH IV CONTRAST CLINICAL HISTORY: pain fall on coumadin COMPARISON STUDY: Chest radiograph June 28, 2016 and May 09, 2017. TECHNIQUE: Following IV administration of 119 mL of [id number]-320, helical axial images of the chest were obtained. Sagittal and coronal reconstructions were viewed as well as maximal intensity projections on an independent 3-D workstation. A dose lowering technique was utilized adhering to the principles of ALARA. FINDINGS: There is no evidence of traumatic injury to the thoracic aorta. There is mild dilatation of the ascending aorta which measures 4 cm at the level the main pulmonary artery. There is no thoracic aortic dissection. The heart is mildly enlarged. Extensive coronary artery calcification is present. Central airways are patent. There is no pneumothorax or pulmonary contusion. Lungs are suboptimally assessed due to respiratory motion. Groundglass opacities favor atelectasis. There is possible mild pulmonary edema. No pleural effusion is present. No acute rib fractures are dense 5 on this exam. Loss of height with concavity of the inferior endplate of T12 is likely old. Extensive anterior osteophytosis of the thoracic spine is noted. There is a horizontal lucency through the right anterior osteophytes at the upper T10 level which likely extends into the anterior superior aspect of the vertebral body at this level. No extension to the posterior elements is identified on this study. This suggests an acute nondisplaced fracture. IMPRESSION: 1. Suspected acute nondisplaced horizontal fracture through the right anterior superior aspect of the T10 vertebral body and the adjacent anterior osteophytes. No definite extension into the posterior elements by CT. Stability of this fracture is difficult to assess by CT and a short-term follow-up CT of the thoracic spine is recommended to reassess this suspected fracture. 2. No additional acute traumatic findings within the chest. 3. Mild cardiomegaly with possible mild pulmonary edema. Electronically signed by: Lew Xie M.D. 05/09/2017 6:48 PM Dictated Date/Time: 05/09/2017 6:28 PM ABD/PELVIS IV CONTRAST ONLY CT DOSE: HISTORY: Trauma. Pain. pain fall on coumadin TECHNIQUE: Multiaxial CT images of the abdomen and pelvis were performed following the use of intravenous contrast. A dose lowering technique was utilized adhering to the principles of ALARA. COMPARISON STUDY: 06/28/2016 FINDINGS: Mild dependent basilar atelectasis. Liver spleen and pancreas are uniform. There has been an interval cholecystectomy. Kidneys enhance uniformly. Abdominal aorta shows mild left ischemic change. No evidence for aneurysm or dissection. Bowel pattern within the abdomen and pelvis is nonobstructive. There is no free fluid within the pelvic cul-de-sac. Degenerative changes of the bony structures throughout. Mild compression deformity superior endplate L5 with estimated loss of vertebral body height at 10%. No significant compromise of the spinal canal. IMPRESSION: 1. No acute process the abdomen or pelvis. 2. Prior cholecystectomy. 3. Mild compression deformity superior endplate L5 with a loss of vertebral body height of 10%. 4. No compromise of the spinal bony canal. The above report was generated using voice recognition software. It may contain grammatical, syntax or spelling errors. Electronically signed by: Thomas Park M.D. 05/09/2017 6:38 PM Dictated Date/Time: 05/09/2017 6:32 PM LUMBAR SPINE WITHOUT CT DOSE: HISTORY: Trauma. Pain. pain fall TECHNIQUE: Multiaxial CT images of the lumbar spine were performed and reformatted in the sagittal and coronal plane without the use of contrast. A dose lowering technique was utilized adhering to the principles of ALARA. COMPARISON: None. FINDINGS: Mild compression deformity superior endplate L5 with aspirin loss of vertebral body height at 10%. There is a small vertical component involving the anterior and plate of L5. This is nondisplaced. There is no bony compromise of the spinal canal. There is degenerative change throughout the remainder of the lumbar region. No additional acute bony abnormality is present. There are degenerative changes of posterior facets throughout. There is no evidence for subluxation. IMPRESSION: 1. Mild compression deformity superior endplate L5 with a nondisplaced vertical fracture of the anterior endplate. 2. No evidence for bony compromise of the spinal canal. 3. Degenerative change throughout the remainder of the lumbar region. The above report was generated using voice recognition software. It may contain grammatical, syntax or spelling errors. Electronically signed by: Thomas Park M.D. 05/09/2017 6:42 PM Dictated Date/Time: 05/09/2017 6:[address] CLINICAL HISTORY: Pain following fall. COMPARISON STUDY: No previous studies for comparison. FINDINGS: Note is made of a horizontal lucency through the right anterior superior aspect of the T10 vertebral body and the adjacent anterior osteophytes. No definite extension into the posterior elements is identified. This likely reflects an acute nondisplaced fracture. Extensive anterior osteophytosis of the thoracic spine is noted. There is concavity with mild loss of height of the inferior endplate of T12 which is likely old. Central canal and neural foramen are suboptimally assessed by CT. The chest CT will be reported separately. IMPRESSION: Suspected acute nondisplaced horizontal fracture through the right anterior superior aspect of the T10 vertebral body and the adjacent anterior osteophytes. No definite extension into the posterior elements by CT. Stability of this fracture is difficult to assess by CT and a short-term follow-up CT of the thoracic spine is recommended to reassess this suspected fracture. Electronically signed by: Lew Xie M.D. 05/09/2017 6:52 PM Dictated Date/Time: 05/09/2017 6:48 PM Laboratory Results 05/09/17 17:03 Red Blood Count 4.22, Mean Corpuscular Volume 100.7, Mean Corpuscular Hemoglobin 34.6, Mean Corpuscular Hemoglobin Concent 34.4, Mean Platelet Volume 11.4, Neutrophils (%) (Auto) 82.0, Lymphocytes (%) (Auto) 10.4, Monocytes (%) ( Auto) 6.7, Eosinophils (%) (Auto) 0.4, Basophils (%) (Auto) 0.1, Neutrophils # ( Auto) 6.81, Lymphocytes # (Auto) 0.86, Monocytes # (Auto) 0.56, Eosinophils # ( Auto) 0.03, Basophils # (Auto) 0.01 05/09/17 17:03 Test 05/09/17 17:03 05/09/17 17:08 05/09/17 18:06 White Blood Count 8.30 K/uL (4.8-10.8) Red Blood Count 4.22 M/uL (4.7-6.1) Hemoglobin 14.6 g/dL (14.0-18.0) Hematocrit 42.5 % (42-52) Mean Corpuscular Volume 100.7 fL (80-100) Mean Corpuscular Hemoglobin 34.6 pg (25-34) Mean Corpuscular Hemoglobin Concent 34.4 g/dl (32-36) Platelet Count 89 K/uL (130-400) Mean Platelet Volume 11.4 fL (7.4-10.4) Neutrophils (%) (Auto) 82.0 % Lymphocytes (%) (Auto) 10.4 % Monocytes (%) (Auto) 6.7 % Eosinophils (%) (Auto) 0.4 % Basophils (%) (Auto) 0.1 % Neutrophils # (Auto) 6.81 K/uL (1.4-6.5) Lymphocytes # (Auto) 0.86 K/uL (1.2-3.4) Monocytes # (Auto) 0.56 K/uL (0.11-0.59) Eosinophils # (Auto) 0.03 K/uL (0-0.5) Basophils # (Auto) 0.01 K/uL (0-0.2) RDW Standard Deviation 44.8 fL (36.4-46.3) RDW Coefficient of Variation 12.2 % (11.5-14.5) Immature Granulocyte % (Auto) 0.4 % Immature Granulocyte # (Auto) 0.03 K/uL (0.00-0.02) Platelet Estimate DECREASED Red Blood Cell Morphology Unremarkable Prothrombin Time 25.6 SECONDS (9.0-12.0) Prothromb Time International Ratio 2.5 (0.9-1.1) Est Creatinine Clear Calc Drug Dose 70.4 ml/min Estimated GFR () 91.0 Estimated GFR (Non- 78.5 BUN/Creatinine Ratio 15.4 (10-20) Calcium Level 8.9 mg/dl (8.5-10.1) Total Bilirubin 0.9 mg/dl (0.2-1) Direct Bilirubin 0.2 mg/dl (0-0.2) Aspartate Amino Transf (AST/SGOT) 16 U/L (15-37) Alanine Aminotransferase (ALT/SGPT) 16 U/L (12-78) Alkaline Phosphatase 90 U/L (45-117) Total Protein 6.8 gm/dl (6.4-8.2) Albumin 3.6 gm/dl (3.4-5.0) Lipase 99 U/L (73-393) Bedside Hemoglobin 13.9 g/dl (14.0-18.0) Bedside Hematocrit 41 % (42-52) Bedside Sodium 141 mEq/L (135-144) Bedside Potassium 3.9 mEq/L (3.3-5.0) Bedside Chloride 99 mEq/L (101-112) Bedside Total CO2 32 mEq/l (24-31) Anion Gap 15.0 mmol/L (16-25) Bedside Blood Urea Nitrogen 15 mg/dl (7-18) Bedside Creatinine 1.0 mg/dl (0.6-1.3) Bedside Glucose (other) 103 mg/dl (70-99) Bedside Ionized Calcium (Melissa) 1.12 mmol/l (1.12-1.32) Urine Color YELLOW Urine Appearance CLEAR (CLEAR) Urine pH 7.0 (4.5-7.5) Urine Specific Magnolia 1.014 (1.000-1.030) Urine Protein NEG (NEG) Urine Glucose (UA) NEG (NEG) Urine Ketones TRACE (NEG) Urine Occult Blood NEG (NEG) Urine Nitrite NEG (NEG) Urine Bilirubin NEG (NEG) Urine Urobilinogen NEG (NEG) Urine Leukocyte Esterase NEG (NEG) Laboratory results reviewed by me Medications Administered Medications (Trade) Dose Ordered Sig/Benjamin Route Start Time Stop Time Status Last Admin Dose Admin Acetaminophen (Tylenol Tab) 1,000 mg NOW STAT PO 05/09/17 16:35 05/09/17 16:45 DC 05/09/17 16:35 1,000 MG Sodium Chloride 500 ml @ 125 mls/hr Q4H STAT IV 05/09/17 16:35 05/09/17 20:34 DC 05/09/17 17:12 125 MLS/HR Dexamethasone Sodium Phosphate (Dexamethasone Inj Pf) 10 mg NOW ONCE IV 05/09/17 19:45 05/09/17 19:46 DC 05/09/17 19:54 10 MG Diazepam (Valium Tab) 2 mg NOW STAT PO 05/09/17 19:41 05/09/17 19:43 DC 05/09/17 19:56 2 MG Diazepam (Valium Tab) 2 mg NOW STAT PO 05/09/17 20:45 05/09/17 20:47 DC 05/09/17 20:59 2 MG ECG Indication: other (fall) Rate (beats per minute): 87 Rhythm: sinus rhythm Findings: PAC, no acute ischemic change, other (Normal axis. ) Change: no significant change (when compared to 06/28/2016) ED Course 1634: The patient was evaluated in room C5. A complete history and physical exam was performed. 1914: I spoke with Dr. Betancourt, orthopedic surgery. We discussed the patients case. He will follow up with the patient as an outpatient. 1929: I reassessed the patient at this time. He is resting comfortably. I discussed the results and treatment plan with the patient. I answered all pertaining questions that he had. He expressed understanding and verbalized agreement. The patient will be discharged home. Medical Decision I reviewed the patient's past medical history, medications, and the nursing notes as described above. The patient's history was concerning for traumatic injury Differential diagnosis: Etiologies such as fracture, dislocation, intra-abdominal, pneumothorax, intrathoracic , intracranial, neurologic, as well as other traumatic pathologies were entertained. The patient is a 76-year-old gentleman with a past medical history of DVT on Coumadin who presents emergency Department with back pain after he was adjusting a bird house when it broke and he fell backwards per history of present illness. On arrival, the patient is uncomfortable in no acute distress , afebrile stable vital signs. Patient has mild thoracic and lumbar tenderness to palpation. Otherwise neuro intact with 5 out of 5 strength in bilateral lower extremities. CT head negative. Patient was found to have "mild compression deformity superior endplate L5 with a nondisplaced vertical fracture of the anterior endplate" and "Suspected acute nondisplaced horizontal fracture through the right anterior superior aspect of the T10 vertebral body". Otherwise, CT of the chest and abdomen without any acute findings. Labs with platelets of 89 at patient's recent baseline and otherwise unremarkable. Case was discussed with Dr. Betancourt, orthospine on-call, who agrees that findings do not appear to be unstable and patient can follow up outpatient with pain control. Patient given Valium and dexamethasone with good effect able to ambulate. Findings and plan for follow-up reviewed with patient. Patient agreeable and d/c'd per discharge instructions. Medication Reconcilliation Current Medication List: was personally reviewed by me Blood Pressure Screening Patient's blood pressure: Normal blood pressure Consults Time Called: 1909 Consulting Physician: Dr. Betancourt, orthopedic surgery Returned Call: [address] Betancourt, orthopedic surgery. We discussed the patients case. He will follow up with the patient as an outpatient. Impression Primary Impression: Compression fracture of lumbar vertebra Additional Impression: Thoracic vertebral fracture Scribe Attestation The scribe's documentation has been prepared under my direction and personally reviewed by me in its entirety. I confirm that the note above accurately reflects all work, treatment, procedures, and medical decision making performed by me. Departure Information Dispostion Home / Self-Care Prescriptions Diazepam (VALIUM) 2 Mg Tab 2 MG PO TID Y for Muscle Spasms, #10 TAB Prov: Kishor Kelly M.D. 05/09/17 Referrals Jacky Reza MD (PCP) Forms HOME CARE DOCUMENTATION FORM, IMPORTANT VISIT INFORMATION Patient Instructions ED Fx Comp Vertebral, [facility] Additional Instructions Please follow up with our spine surgeon, Dr. Betancourt, tomorrow for a follow up appointment for re-evaluation. You were found to have fractures in your thoracic and lumbar spine that appear stable at this time. Otherwise, your exam, EKG, chest xray, lab results, and CT scans did not show signs of an emergent condition at this time. Acetaminophen for pain as needed. Heating pad for muscle relaxation as needed. Valium for additional muscle relaxation as needed. Return to the emergency department for worsening symptoms as described in the accompanying instructions. Problem Qualifiers
[2017-05-09] MEDS ORDERED: OPTIRAY 320 IV PRN (17:00)
[2017-05-09 17:21] LABS: ISTAT IONIZED CALCIUM 1.12 mmol/l (1.12-1.32); ISTAT POTASSIUM 3.9 mEq/L (3.3-5.0)
[2017-05-09 17:22] LABS: HEMATOCRIT 42.5 % (42-52); HEMOGLOBIN 14.6 g/dL (14.0-18.0); MEAN CELL VOLUME 100.7 fL (80-100); MEAN CORPUSCULAR HEMOGLOBIN 34.6 pg (25-34); MEAN CORPUSCULAR HGB CONC 34.4 g/dl (32-36); RED CELL DISTRIBUTION WIDTH CV 12.2 % (11.5-14.5); RED CELL DISTRIBUTION WIDTH SD 44.8 fL (36.4-46.3)
[2017-05-09 17:23] LABS: INR 2.5 (0.9-1.1)
[2017-05-09 17:36] LABS: ALBUMIN 3.6 gm/dl (3.4-5.0); CALCIUM 8.9 mg/dl (8.5-10.1); CREATININE 0.95 mg/dl (0.60-1.40); POTASSIUM 3.7 mmol/L (3.5-5.1)
[2017-05-09 17:39] LABS: TOTAL PROTEIN 6.8 gm/dl (6.4-8.2)
[2017-05-09 17:50] LABS: PLATELET COUNT 89 K/uL (130-400)
[2017-05-09 17:51] LABS: BASO % 0.1 %; BASO ABS # 0.01 K/uL (0-0.2); EOS % 0.4 %; EOS ABS # 0.03 K/uL (0-0.5); IG# 0.03 K/uL (0.00-0.02); LYMPH % 10.4 %; LYMPH ABS # 0.86 K/uL (1.2-3.4); MEAN PLATELET VOLUME 11.4 fL (7.4-10.4); MONO % 6.7 %; MONO ABS # 0.56 K/uL (0.11-0.59); NEUT ABS # 6.81 K/uL (1.4-6.5)
--- NOTE | 2017-05-09 17:56 | DIAGNOSTIC IMAGING REPORT ---
CHEST ONE VIEW PORTABLE CLINICAL HISTORY: ABDOMINAL PAIN/GI nausea COMPARISON STUDY: 06/28/2016 FINDINGS: Chronic parenchymal basilar fibrotic change. Heart top normal. Diaphragms are smooth. Upper lungs are entirely clear. IMPRESSION: Chronic change. No acute process. The above report was generated using voice recognition software. It may contain grammatical, syntax or spelling errors. Electronically signed by: Thomas Park M.D. 05/09/2017 5:54 PM Dictated Date/Time: 05/09/2017 5:53 PM
--- NOTE | 2017-05-09 18:30 | DIAGNOSTIC IMAGING REPORT ---
CT OF THE HEAD WITHOUT CONTRAST CLINICAL HISTORY: pain fall on coumadin COMPARISON STUDY: MRI of the brain September 09, 2014. TECHNIQUE: Helical axial images of the head were obtained without IV contrast. Automated exposure control was utilized for the study. A dose lowering technique was utilized adhering to the principles of ALARA. FINDINGS: No acute intracranial hemorrhage, midline shift or mass effect is present. A 4.4 x 2 cm CSF attenuation abnormality within the left middle cranial fossa represents an arachnoid cyst which is unchanged since MRI of September 09, 2014. Ventricular system is normal. Prominence of the extra-axial CSF spaces is unchanged and due to atrophy. There is no calvarial fracture. IMPRESSION: 1. No acute intracranial findings. No change in appearance of the brain. 2. No calvarial fracture. Electronically signed by: Lew Xie M.D. 05/09/2017 6:28 PM Dictated Date/Time: 05/09/2017 6:24 PM
--- NOTE | 2017-05-09 18:30 | DIAGNOSTIC IMAGING REPORT ---
CERVICAL SPINE W/O CT DOSE: 2675.41 mGy.cm HISTORY: Trauma. Pain. pain fall TECHNIQUE: Multiaxial CT images of the cervical spine were performed and reformatted in the sagittal and coronal plane without the use of contrast. A dose lowering technique was utilized adhering to the principles of ALARA. COMPARISON: None. FINDINGS: No fractures. No subluxation. Prevertebral soft tissues and the C1-C2 interval are intact. No pneumothorax. Generalized degenerative change IMPRESSION: No fractures within the cervical spine. Generalized degenerative change The above report was generated using voice recognition software. It may contain grammatical, syntax or spelling errors. Electronically signed by: Thomas Park M.D. 05/09/2017 6:26 PM Dictated Date/Time: 05/09/2017 6:24 PM
--- NOTE | 2017-05-09 18:39 | DIAGNOSTIC IMAGING REPORT ---
ABD/PELVIS IV CONTRAST ONLY CT DOSE: HISTORY: Trauma. Pain. pain fall on coumadin TECHNIQUE: Multiaxial CT images of the abdomen and pelvis were performed following the use of intravenous contrast. A dose lowering technique was utilized adhering to the principles of ALARA. COMPARISON STUDY: 06/28/2016 FINDINGS: Mild dependent basilar atelectasis. Liver spleen and pancreas are uniform. There has been an interval cholecystectomy. Kidneys enhance uniformly. Abdominal aorta shows mild left ischemic change. No evidence for aneurysm or dissection. Bowel pattern within the abdomen and pelvis is nonobstructive. There is no free fluid within the pelvic cul-de-sac. Degenerative changes of the bony structures throughout. Mild compression deformity superior endplate L5 with estimated loss of vertebral body height at 10%. No significant compromise of the spinal canal. IMPRESSION: 1. No acute process the abdomen or pelvis. 2. Prior cholecystectomy. 3. Mild compression deformity superior endplate L5 with a loss of vertebral body height of 10%. 4. No compromise of the spinal bony canal. The above report was generated using voice recognition software. It may contain grammatical, syntax or spelling errors. Electronically signed by: Thomas Park M.D. 05/09/2017 6:38 PM Dictated Date/Time: 05/09/2017 6:32 PM
--- NOTE | 2017-05-09 18:43 | DIAGNOSTIC IMAGING REPORT ---
LUMBAR SPINE WITHOUT CT DOSE: HISTORY: Trauma. Pain. pain fall TECHNIQUE: Multiaxial CT images of the lumbar spine were performed and reformatted in the sagittal and coronal plane without the use of contrast. A dose lowering technique was utilized adhering to the principles of ALARA. COMPARISON: None. FINDINGS: Mild compression deformity superior endplate L5 with aspirin loss of vertebral body height at 10%. There is a small vertical component involving the anterior and plate of L5. This is nondisplaced. There is no bony compromise of the spinal canal. There is degenerative change throughout the remainder of the lumbar region. No additional acute bony abnormality is present. There are degenerative changes of posterior facets throughout. There is no evidence for subluxation. IMPRESSION: 1. Mild compression deformity superior endplate L5 with a nondisplaced vertical fracture of the anterior endplate. 2. No evidence for bony compromise of the spinal canal. 3. Degenerative change throughout the remainder of the lumbar region. The above report was generated using voice recognition software. It may contain grammatical, syntax or spelling errors. Electronically signed by: Thomas Park M.D. 05/09/2017 6:42 PM Dictated Date/Time: 05/09/2017 6:40 PM
--- NOTE | 2017-05-09 18:50 | DIAGNOSTIC IMAGING REPORT ---
CT OF THE CHEST WITH IV CONTRAST CLINICAL HISTORY: pain fall on coumadin COMPARISON STUDY: Chest radiograph June 28, 2016 and May 09, 2017. TECHNIQUE: Following IV administration of 119 mL of Optiray-320, helical axial images of the chest were obtained. Sagittal and coronal reconstructions were viewed as well as maximal intensity projections on an independent 3-D workstation. A dose lowering technique was utilized adhering to the principles of ALARA. FINDINGS: There is no evidence of traumatic injury to the thoracic aorta. There is mild dilatation of the ascending aorta which measures 4 cm at the level the main pulmonary artery. There is no thoracic aortic dissection. The heart is mildly enlarged. Extensive coronary artery calcification is present. Central airways are patent. There is no pneumothorax or pulmonary contusion. Lungs are suboptimally assessed due to respiratory motion. Groundglass opacities favor atelectasis. There is possible mild pulmonary edema. No pleural effusion is present. No acute rib fractures are dense 5 on this exam. Loss of height with concavity of the inferior endplate of T12 is likely old. Extensive anterior osteophytosis of the thoracic spine is noted. There is a horizontal lucency through the right anterior osteophytes at the upper T10 level which likely extends into the anterior superior aspect of the vertebral body at this level. No extension to the posterior elements is identified on this study. This suggests an acute nondisplaced fracture. IMPRESSION: 1. Suspected acute nondisplaced horizontal fracture through the right anterior superior aspect of the T10 vertebral body and the adjacent anterior osteophytes. No definite extension into the posterior elements by CT. Stability of this fracture is difficult to assess by CT and a short-term follow-up CT of the thoracic spine is recommended to reassess this suspected fracture. 2. No additional acute traumatic findings within the chest. 3. Mild cardiomegaly with possible mild pulmonary edema. Electronically signed by: Lew Xie M.D. 05/09/2017 6:48 PM Dictated Date/Time: 05/09/2017 6:28 PM
--- NOTE | 2017-05-09 18:53 | DIAGNOSTIC IMAGING REPORT ---
THORACIC SPINE CT CLINICAL HISTORY: Pain following fall. COMPARISON STUDY: No previous studies for comparison. FINDINGS: Note is made of a horizontal lucency through the right anterior superior aspect of the T10 vertebral body and the adjacent anterior osteophytes. No definite extension into the posterior elements is identified. This likely reflects an acute nondisplaced fracture. Extensive anterior osteophytosis of the thoracic spine is noted. There is concavity with mild loss of height of the inferior endplate of T12 which is likely old. Central canal and neural foramen are suboptimally assessed by CT. The chest CT will be reported separately. IMPRESSION: Suspected acute nondisplaced horizontal fracture through the right anterior superior aspect of the T10 vertebral body and the adjacent anterior osteophytes. No definite extension into the posterior elements by CT. Stability of this fracture is difficult to assess by CT and a short-term follow-up CT of the thoracic spine is recommended to reassess this suspected fracture. Electronically signed by: Lew Xie M.D. 05/09/2017 6:52 PM Dictated Date/Time: 05/09/2017 6:48 PM
[2017-05-09] MEDS ORDERED: DIAZEPAM 5MG TAB PO STA ×2 (19:41→20:45)
[2017-05-09] MEDS ORDERED: DEXAMETHASONE **PF** INJ 10 MG/ML VIAL IV ONE (19:45)
[2017-05-09] MEDS ORDERED: DIAZ2TAB PO (20:28)
[2017-05-09 20:30] VITALS: BP 100/66; PULSE 84; O2SAT 96
[2017-05-09] MEDS ORDERED: EMPTY 8 DRAM VIAL ONE (20:55)
--- NOTE | 2017-05-10 12:52 | Pharmacy Progress Note ---
ED Pharmacist Progress Note Date of Service: May 10, 2017. Patient called because he did not receive the Rx for Valium on discharge. I reviewed the e-prescribing history on the Valium Rx. I contacted [facility] as the history did not provide the timing of the events on the RX. Spoke with Doris who stated the Rx for Valium was initially e-Prescribed to [id number] however the Rx failed to transmit, likely due to the store being closed. The e- Rx was then deleted and the Valium Rx was printed. I did find the Rx for Valium on the printer today. Reviewed case with Dr Hassan who wrote a new Rx for Valium 2mg tabs, 1 tab TID PRN spasms/pain # 10, no refills. I placed the Rx in an envelope in the command station with his name. 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
== END 2017-05-09 21:00 | disposition home or self-care (01) ==
LOC: C.EDB 16:07 → C.EDC 21:00
DX: S32.050A Wedge compression fracture of fifth lumbar vertebra, initial encounter for closed fracture (principal); S22.079A Unspecified fracture of T9-T10 vertebra, initial encounter for closed fracture; W19.XXXA Unspecified fall, initial encounter; Z79.01 Long term (current) use of anticoagulants; Z86.718 Personal history of other venous thrombosis and embolism; I50.30 Unspecified diastolic (congestive) heart failure; Z83.3 Family history of diabetes mellitus; Z80.6 Family history of leukemia; Z79.899 Other long term (current) drug therapy

== ENCOUNTER 2017-05-25 09:37 | Emergency (ER) | payer OTHER ==
[~2017-05-25] VITALS: Ht 177.8 cm; Wt 86.0 kg
[~2017-05-25 09:37] MED LIST changes: +DIAZ2TAB PO
[2017-05-25 09:46] VITALS: TEMP 36.4; Ht 177.8 cm; Wt 86.0 kg
[2017-05-25] MEDS ORDERED: LIDODERM (LIDOCAINE) PATCH 5% TD STA (10:03)
--- NOTE | 2017-05-25 10:34 | EMERGENCY ROOM VISIT NOTE ---
History Report prepared by Jil: Iftikhar Page Under the Supervision of: Dr. Kishor Kelly M.D. First contact with patient: 10:00 Chief Complaint: OTHER COMPLAINT Stated Complaint: BRUSING ON L UPPER THIGH/HIP AND L BUTTOCKS History of Present Illness The patient is a 76 year old male who presents to the Emergency Room with complaints of worsening/"expanding" of bruising across his left buttocks that began 9 days prior to arrival. The patient states that he had a falling episode 16 days ago, he came into the emergency department following this fall with back pain and dizziness. He was diagnosed with a fracture of L5 and T10. The patient's states that there was not any bruising following the fall. She then started to notice bruising across his left leg and left buttocks approximately 1 week after the fall, 9 days ago. The patient is not having any pain in the leg or lower back, but he is having pain in his right hip. He has chronic pain in this hip and will be followed by Dr. Camp in a few weeks. The notes that he has been sleeping sitting upright in a chair because of the pain in the hip. The patient is on Coumadin, and his INR was 2.5 9 days ago on his previous ED visit. The patient was taking Flexeril and Dilaudid for his pain , but stopped these medications due to stiffness and constipation bilaterally. He is only taking Tylenol for pain at night. 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 A total of ten systems were reviewed and were otherwise negative. Past Medical & Surgical Medical Problems: (1) Cholecystitis with cholelithiasis (2) Diastolic CHF (3) DVT (deep venous thrombosis) (4) PSVT (paroxysmal supraventricular tachycardia) (5) Rupture of kidney (6) Thrombocytopenia Surgical Problems: (1) eyelid surgery Family History Diabetes mellitus MOTHER FH: leukemia BROTHER Social History Smoking Status: Never Smoker Alcohol Use: none Drug Use: none Marital Status: Housing Status: lives with family Occupation Status: retired Current/Historical Medications Scheduled Acetaminophen (Tylenol), 1,000 MG PO BID Cholecalciferol (Vitamin D3), 1,000 INTUNIT PO QAM Cyanocobalamin (Vitamin B-12 250 Mcg), 500 MCG PO QAM Fluticasone Propionate (Nasal) (Flonase Allergy Relief), 2 SPRAYS FARAZ QAM Lifitegrast (Xiidra), 1 DROP OPB BID Loratadine (Claritin), 10 MG PO DAILY Psyllium (Konsyl-D), 2 TSP PO BID Warfarin Sod (Jantoven), 3.75 MG PO UD Warfarin Sod (Coumadin), 2.5 MG PO 5XWK Scheduled PRN Diazepam (Valium), 2 MG PO TID PRN for Muscle Spasms Lidocaine (Lidocaine), 1 PATCH TD DAILY PRN for Pain Mupirocin 2% (Bactroban 2%), 1 APPLN EXT UD PRN for skin irritation Nystatin/Triamcinolone (Mycogen || ), 1 APPLN EXT DIRECTED PRN for Affected Skin Folds Zolpidem Tartrate (Ambien), 5 MG PO HS PRN for Sleep Allergies Coded Allergies: Celecoxib (Unverified Allergy, Severe, RETIREMENT USE CAUSED SEVERE HEARTBURN, 05/25/17) Omeprazole (Verified Allergy, Severe, SVT, 05/25/17) Aspirin (Unverified Allergy, Intermediate, CANNOT TAKE DUE TO GASTRITIS, ) Garlic (Verified Allergy, Intermediate, stomach cramp, diarrhea, 05/25/17) Naproxen (Verified Allergy, Intermediate, skin rash, 05/25/17) Acetaminophen (Unverified Allergy, Mild, GENERAL ILL FEELING, 05/25/17) Codeine (Unverified Allergy, Mild, GENERAL ILL FEELING, 05/25/17) Rofecoxib (Unverified Allergy, Mild, GENERAL ILL FEELING, 05/25/17) Valdecoxib (Unverified Allergy, Mild, GENERAL ILL FEELING, 05/25/17) Ibuprofen (Unverified Allergy, Unknown, CANNOT TAKE DUE TO GASTRITIS, 05/25) NSAIDs (Verified Allergy, Unknown, PT TAKES COUMADIN, 05/25/17) Hydrocodone (Verified Adverse Reaction, Intermediate, vomiting, 05/25/17) Loratadine (Verified Adverse Reaction, Intermediate, RACING HEART, 05/25/17 ) Onion (Verified Adverse Reaction, Intermediate, upset stomach/diarrhea, ) Oxycodone (Verified Adverse Reaction, Intermediate, "KNOCKS ME OUT", ) Pseudoephedrine (Verified Adverse Reaction, Intermediate, RACING HEART, ) Physical Exam Vital Signs Date Time Temp Pulse Resp B/P (MAP) Pulse Ox O2 Delivery O2 Flow Rate FiO2 05/25/17 11:44 56 16 128/69 100 Room Air 05/25/17 09:46 36.4 119 16 167/133 99 Room Air Physical Exam GENERAL: Awake, alert, well-appearing, in no distress HENT: Normocephalic, atraumatic. Oropharynx unremarkable. EYES: Normal conjunctiva. Sclera non-icteric. NECK: Supple. No nuchal rigidity. FROM. No JVD. RESPIRATORY: Clear to auscultation. CARDIAC: Regular rate, normal rhythm. Extremities warm and well perfused. Pulses equal. ABDOMEN: Soft, non-distended. No tenderness to palpation. No rebound or guarding. No masses. RECTAL: Deferred. MUSCULOSKELETAL: Chest examination reveals no tenderness. The back is symmetrical on inspection without obvious abnormality. There is no CVA tenderness to palpation. No joint edema. LOWER EXTREMITIES: Calves are equal size bilaterally and non-tender. There is ecchymosis to the left lateral hip, as well as the superior buttock. There is no underlying fluctuance. The compartment is soft. There is no warmth. The strength is 5/5. SILT in the bilateral lower extremities. NEURO: Normal sensorium. No sensory or motor deficits noted. The strength is 5/ 5 in bilateral lower extremities. SILT in the bilateral lower extremities. SKIN: No rash or jaundice noted. Medical Decision & Procedures ER Provider Diagnostic Interpretation: Radiology results as stated below per my review and radiologist interpretation: R PELVIS/UNILATERAL HIP 2-3VIEWS CLINICAL HISTORY: Right hip pain. COMPARISON: CT of the abdomen and pelvis May 09, 2017. FINDINGS: The sacroiliac joints and symphysis pubis are intact. No acute fracture is identified within the pelvis or hips. An L5 compression fracture is noted. This was shown on CT of May 09, 2017. There is mild osteophytosis of both hips. IMPRESSION: 1. No acute fracture within the pelvis or hips. 2. L5 compression fracture which was shown on CT of May 09, 2017. Electronically signed by: Lew Xie M.D. 05/25/2017 11:16 AM Dictated Date/Time: 05/25/2017 11:05 AM Laboratory Results 05/25/17 10:25 Red Blood Count 3.96, Mean Corpuscular Volume 100.8, Mean Corpuscular Hemoglobin 34.3, Mean Corpuscular Hemoglobin Concent 34.1, Mean Platelet Volume 10.1, Neutrophils (%) (Auto) 70.1, Lymphocytes (%) (Auto) 18.9, Monocytes (%) ( Auto) 8.2, Eosinophils (%) (Auto) 2.2, Basophils (%) (Auto) 0.4, Neutrophils # ( Auto) 3.74, Lymphocytes # (Auto) 1.01, Monocytes # (Auto) 0.44, Eosinophils # ( Auto) 0.12, Basophils # (Auto) 0.02 05/25/17 10:25 Test 05/25/17 10:25 White Blood Count 5.34 K/uL (4.8-10.8) Red Blood Count 3.96 M/uL (4.7-6.1) Hemoglobin 13.6 g/dL (14.0-18.0) Hematocrit 39.9 % (42-52) Mean Corpuscular Volume 100.8 fL (80-100) Mean Corpuscular Hemoglobin 34.3 pg (25-34) Mean Corpuscular Hemoglobin Concent 34.1 g/dl (32-36) Platelet Count 146 K/uL (130-400) Mean Platelet Volume 10.1 fL (7.4-10.4) Neutrophils (%) (Auto) 70.1 % Lymphocytes (%) (Auto) 18.9 % Monocytes (%) (Auto) 8.2 % Eosinophils (%) (Auto) 2.2 % Basophils (%) (Auto) 0.4 % Neutrophils # (Auto) 3.74 K/uL (1.4-6.5) Lymphocytes # (Auto) 1.01 K/uL (1.2-3.4) Monocytes # (Auto) 0.44 K/uL (0.11-0.59) Eosinophils # (Auto) 0.12 K/uL (0-0.5) Basophils # (Auto) 0.02 K/uL (0-0.2) RDW Standard Deviation 44.2 fL (36.4-46.3) RDW Coefficient of Variation 12.1 % (11.5-14.5) Immature Granulocyte % (Auto) 0.2 % Immature Granulocyte # (Auto) 0.01 K/uL (0.00-0.02) Prothrombin Time 33.3 SECONDS (9.0-12.0) Prothromb Time International Ratio 3.2 (0.9-1.1) Anion Gap 7.0 mmol/L (3-11) Est Creatinine Clear Calc Drug Dose 90.4 ml/min Estimated GFR () 105.3 Estimated GFR (Non- 90.9 BUN/Creatinine Ratio 12.1 (10-20) Calcium Level 9.0 mg/dl (8.5-10.1) Total Bilirubin 0.8 mg/dl (0.2-1) Direct Bilirubin 0.2 mg/dl (0-0.2) Aspartate Amino Transf (AST/SGOT) 13 U/L (15-37) Alanine Aminotransferase (ALT/SGPT) 17 U/L (12-78) Alkaline Phosphatase 175 U/L (45-117) Total Protein 6.7 gm/dl (6.4-8.2) Albumin 3.2 gm/dl (3.4-5.0) Laboratory results reviewed by me Medications Administered Medications (Trade) Dose Ordered Sig/Benjamin Route Start Time Stop Time Status Last Admin Dose Admin Lidocaine (Lidoderm Patch 5%) 1 patch NOW STAT TD 05/25/17 10:03 05/25/17 10:20 DC 05/25/17 10:40 1 PATCH ED Course 1001: The patient was evaluated in room B8. A complete history and physical exam was performed. 1003: Ordered Lidocaine 1 patch 1216: I reevaluated the patient. Discussed results and discharge instructions: He verbalized understanding and agreement. The patient is ready for discharge. Medical Decision I reviewed the patient's past medical history, medications, and the nursing notes as described above. Differential diagnosis includes; contusion, hematoma, fracture, dislocation, ligamentous injury, supratherapeutic INR, thrombocytopenia. 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 Ill the patient is relatively well-appearing, no acute distress, afebrile with stable vital signs. He has mild ecchymosis to the left lateral hip and superior but talk. There is no underlying fluctuance and compartments are soft thus unlikely to have significant hematoma. Of note the patient does have a history of chronic thrombocytopenia and his platelets were in the 80s at baseline and he had an INR of 2.5 on his last visit. INR slightly elevated today at 3.2. Platelets improved from prior to 140s. X-ray of hip and pelvis negative for fracture or malalignment. Patient advised to hold his Coumadin dose tomorrow and discuss with his Coumadin clinic further instructions. Plan for f/u with Dr. restrepo as scheduled. Findings and plan for follow-up reviewed with patient. Patient agreeable and d/c'd per discharge instructions. Impression Primary Impression: Contusion of left hip and thigh Scribe Attestation The scribe's documentation has been prepared under my direction and personally reviewed by me in its entirety. I confirm that the note above accurately reflects all work, treatment, procedures, and medical decision making performed by me. Departure Information Dispostion Home / Self-Care Prescriptions Lidocaine (Lidocaine) 1 Patch Tdsy 1 PATCH TD DAILY Y for Pain, #10 PATCH 12 hours on and 12 hours off. Prov: Kishro Kelly M.D. 05/25/17 Referrals Jacky Reza MD (PCP) Josh Betancourt, DO Patient Instructions Bruises Contusions, My [facility] Additional Instructions Please follow up with your primary care physician in the next 1-3 days for re- evaluation and with Dr. Betancourt, orthopedics, as scheduled. Skip your dose of Coumadin tomorrow and contact your Coumadin clinic for a recheck and further instructions. Otherwise, your exam, lab results, and Xrays did not show signs of an emergent condition at this time. Acetaminophen for pain as needed. Lidoderm patch as directed. Return to the emergency department for worsening symptoms as described in the accompanying instructions.
[2017-05-25 10:56] LABS: BASO % 0.4 %; BASO ABS # 0.02 K/uL (0-0.2); EOS % 2.2 %; EOS ABS # 0.12 K/uL (0-0.5); HEMATOCRIT 39.9 % (42-52); HEMOGLOBIN 13.6 g/dL (14.0-18.0); IG# 0.01 K/uL (0.00-0.02); LYMPH % 18.9 %; LYMPH ABS # 1.01 K/uL (1.2-3.4); MEAN CELL VOLUME 100.8 fL (80-100); MEAN CORPUSCULAR HEMOGLOBIN 34.3 pg (25-34); MEAN CORPUSCULAR HGB CONC 34.1 g/dl (32-36); MEAN PLATELET VOLUME 10.1 fL (7.4-10.4); MONO % 8.2 %; MONO ABS # 0.44 K/uL (0.11-0.59); NEUT % 70.1 %; NEUT ABS # 3.74 K/uL (1.4-6.5); PLATELET COUNT 146 K/uL (130-400); RED CELL DISTRIBUTION WIDTH CV 12.1 % (11.5-14.5); RED CELL DISTRIBUTION WIDTH SD 44.2 fL (36.4-46.3); WHITE BLOOD COUNT 5.34 K/uL (4.8-10.8)
[2017-05-25 11:07] LABS: INR 3.2 (0.9-1.1)
[2017-05-25 11:15] LABS: ALBUMIN 3.2 gm/dl (3.4-5.0); CREATININE 0.74 mg/dl (0.60-1.40); POTASSIUM 3.4 mmol/L (3.5-5.1)
--- NOTE | 2017-05-25 11:17 | DIAGNOSTIC IMAGING REPORT ---
R PELVIS/UNILATERAL HIP 2-3VIEWS CLINICAL HISTORY: Right hip pain. COMPARISON: CT of the abdomen and pelvis May 09, 2017. FINDINGS: The sacroiliac joints and symphysis pubis are intact. No acute fracture is identified within the pelvis or hips. An L5 compression fracture is noted. This was shown on CT of May 09, 2017. There is mild osteophytosis of both hips. IMPRESSION: 1. No acute fracture within the pelvis or hips. 2. L5 compression fracture which was shown on CT of May 09, 2017. Electronically signed by: Lew Xie M.D. 05/25/2017 11:16 AM Dictated Date/Time: 05/25/2017 11:05 AM
[2017-05-25 11:18] LABS: TOTAL PROTEIN 6.7 gm/dl (6.4-8.2)
[2017-05-25] MEDS ORDERED: CLR10 PO (11:28)
[2017-05-25] MEDS ORDERED: ACET-1256 PO (11:34)
[2017-05-25 11:44] VITALS: BP 128/69; PULSE 56; O2SAT 100
[2017-05-25] MEDS ORDERED: LDDP5 TD (12:05)
== END 2017-05-25 12:33 | disposition home or self-care (01) ==
LOC: C.EDB 09:40
DX: S70.02XA Contusion of left hip, initial encounter (principal); S70.12XA Contusion of left thigh, initial encounter; W19.XXXA Unspecified fall, initial encounter; D69.6 Thrombocytopenia, unspecified; Z86.718 Personal history of other venous thrombosis and embolism; Z98.890 Other specified postprocedural states; Z83.3 Family history of diabetes mellitus; Z80.6 Family history of leukemia; Z79.01 Long term (current) use of anticoagulants

== ENCOUNTER 2023-03-11 09:28 | Observation (INO) ==
--- NOTE | 2023-02-07 14:15 | PAT Medication Instructions ---
Medication Instructions Date of Service February 07, 2023 Home Medications cyanocobalamin (vitamin B-12) 500 mcg tablet 500 mcg PO QAM acetaminophen 500 mg tablet 1,000 mg PO TID cholecalciferol (vitamin D3) 10 mcg (400 unit) tablet (Vitamin D3) 400 unit PO QAM fluticasone propionate 50 mcg/actuation nasal spray,suspension (Flonase Allergy Relief) 1 spray intranasal QAM lifitegrast 5 % eye drops in a dropperette (Xiidra) 1 drp ophthalmic (eye) BID loratadine 10 mg tablet 10 mg PO QAM mupirocin calcium 2 % topical cream 1 applic topical UD PRN Skin Irritation nystatin-triamcinolone topical cream 1 applic topical UD PRN Skin Irritation peg 400-propylene glycol (PF) 0.4 %-0.3 % eye drops in a dropperette (Systane (PF)) 1 drp ophthalmic (eye) UD PRN Dry Eye(S) psyllium 1 tbsp PO BID amoxicillin 500 mg capsule 2,000 mg PO ONCE PRN Other apixaban 5 mg tablet (Eliquis) 5 mg PO BID folic acid 1 mg tablet 1 mg PO DAILY metoprolol tartrate 50 mg tablet 50 mg PO BID MEDICATION INSTRUCTIONS: Continue as directed fluticasone propionate 50 mcg/actuation nasal spray,suspension (Flonase Allergy Relief) 1 spray intranasal QAM lifitegrast 5 % eye drops in a dropperette (Xiidra) 1 drp ophthalmic (eye) BID mupirocin calcium 2 % topical cream 1 applic topical UD PRN Skin Irritation (do not use near surgical area after bathing prior to surgery) nystatin-triamcinolone topical cream 1 applic topical UD PRN Skin Irritation (do not use near surgical area after bathing prior to surgery) peg 400-propylene glycol (PF) 0.4 %-0.3 % eye drops in a dropperette (Systane (PF)) 1 drp ophthalmic (eye) UD PRN Dry Eye(S) ASK your prescriber and surgeon amoxicillin 500 mg capsule 2,000 mg PO ONCE PRN Other apixaban 5 mg tablet (Eliquis) 5 mg PO BID DO NOT take the morning of surgery cholecalciferol (vitamin D3) 10 mcg (400 unit) tablet (Vitamin D3) 400 unit PO QAM cyanocobalamin (vitamin B-12) 500 mcg tablet 500 mcg PO QAM folic acid 1 mg tablet 1 mg PO DAILY loratadine 10 mg tablet 10 mg PO QAM psyllium 1 tbsp PO BID Take morning of surgery With a small sip of water, OTHERWISE NOTHING TO EAT OR DRINK AFTER MIDNIGHT: acetaminophen 500 mg tablet 1,000 mg PO TID (if needed) metoprolol tartrate 50 mg tablet 50 mg PO BID Take evening before surgery acetaminophen 500 mg tablet 1,000 mg PO TID (if needed) metoprolol tartrate 50 mg tablet 50 mg psyllium 1 tbsp PO BID Other Notes If you have any questions please call us at [phone] or [phone] or [phone] or [phone]
--- NOTE | 2023-02-11 14:10 | Anesthesiology Consultation ---
Date of Service February 11, 2023 Assessment & Plan (1) Encounter for pre-operative examination: Plan - awaiting [facility] hematology response on thrombocytopenia at 87,000. - Case discussed in detail with Dr. Alberts who advised contacting hematology if patient can proceed at current platelet count and if anything additional is needed especially in setting of current platelet shortage and relaying the information to the surgeon's office. Debbie with surgeon's office made aware, optimization note completed. - thrombocytopenia: platelets 87,000. Last level 12/03/22: 72,000 which was considered stable per [facility] hematology notation. - awaiting response from [facility] cardiology. - patient requests all PAT testing be faxed to [facility] PCP Dr. Romeo, awaiting final clearance/response to optimization form. - internal medicine office visit 01/29/23 [facility]: "...scheduled for left shoulder replacement on 03/11/23...preoperative labs, ECG and CXR as scheduled..." - cardiology office visit 12/10/22 [facility]: "...subdural hematoma as well as an injury to his left shoulder. He continues to have physical therapy on his left shoulder for frozen shoulder but is making slow and steady progress. After discharge from [place] he had 2 weeks of inpatient rehabilitation. While he had been hospitalized with his head injury, he had been noted to have brief episodes of atrial fibrillation. A 7 day Zio patch monitor was performed in follow-up on 05/30/2022 revealing frequent premature atrial contractions, 13.1% Pac burden, as well as paroxysmal atrial fibrillation, less than 1% premature atrial contraction burden burden. Ultimately he underwent TAVR with a # 29mm Francisco Jayson S3 at [facility] on 09/04/2022. He tolerated the procedure well with the exception of low platelet count. His most recent CBC on 09/21/2022 revealed stable hemoglobin of 12.6, [place] [address], relatively unchanged compared to 75,000 noted a week before. Patient underwent repeat echocardiogram on 11/15 showing stable TAVR gradients and a preserved LV systolic function. Today the patient presents with his per his usual routine. From a cardiac standpoint he is feeling well...6 mos..." 09/25/22 [facility] notation: "...cautioned against any elective procedures for at least six months s/p TAVR..." - Outpatient joint assessment: Patient is currently scheduled for inpatient pathway. If re-evaluated and patient/surgeon requests outpatient pathway, patient is not recommended candidate for outpatient joint program from anesthesia standpoint. Chart Review Chart Review: Pending: Refer to Additional Notes / Consult section and Patient seen in Pre Admission Testing Teaching & Discussion Pre-Anesthesia Teaching/Discussion Notes: Instructed NPO after midnight before surgery, except medications with 15 cc of water. Medication instructions provided according to the PAT guidelines. History Surgery Operation Date: 03/11/23 10:30 Proposed Procedures p Left Reverse Total Shoulder Arthroplasty - Kameron Moore, Height/Weight Height: 5 ft 10 in Weight: 81.4 kg Allergies Allergy/AdvReac Type Severity Reaction Status Date / Time celecoxib Allergy Unknown GLASS CHECKER Verified 02/01/23 13:51 USE CAUSED SEVERE HEARTBURN cyclosporine [From Restasis] Allergy Unknown eye Verified 02/01/23 13:51 irritation naproxen Allergy Unknown skin rash Verified 02/01/23 13:51 NSAIDS (Non-Steroidal Allergy Unknown HX Verified 02/01/23 13:51 Anti-Inflamma GASTRITIS, PT TAKES COUMADIN omeprazole Allergy Unknown SVT Verified 02/01/23 13:51 acetaminophen AdvReac Unknown GENERAL Verified 02/01/23 13:51 ILL FEELING aspirin AdvReac Unknown CANNOT Verified 02/01/23 13:51 TAKE DUE TO GASTRITIS codeine AdvReac Unknown GENERAL Verified 02/01/23 13:51 ILL FEELING enoxaparin [From Lovenox] AdvReac Unknown thrombocyto Verified 02/01/23 13:51 penia finasteride AdvReac Unknown CAUSED Verified 02/01/23 13:51 GASTRITIS garlic AdvReac Unknown stomach Verified 02/01/23 13:51 cramp, diarrhea heparin AdvReac Unknown "not to be Verified 02/01/23 14:09 used with Eliquis" per pt hydrocodone AdvReac Unknown vomiting Verified 02/01/23 13:51 hydromorphone [From Dilaudid] AdvReac Unknown constipatio Verified 02/01/23 13:51 n ibuprofen AdvReac Unknown CANNOT Verified 02/01/23 13:51 TAKE DUE TO GASTRITIS lidocaine AdvReac Unknown lidocaine Verified 02/01/23 13:51 patch --> sinus infection loratadine AdvReac Unknown RACING Verified 02/01/23 13:51 HEART onion AdvReac Unknown upset Verified 02/01/23 13:51 stomach/diarrhea oxycodone AdvReac Unknown "KNOCKS ME Verified 02/01/23 13:51 OUT" pseudoephedrine AdvReac Unknown RACING Verified 02/01/23 13:51 HEART rofecoxib AdvReac Unknown GENERAL Verified 02/01/23 13:51 ILL FEELING valdecoxib AdvReac Unknown GENERAL Verified 02/01/23 13:51 ILL FEELING Medications Home Medications Medication Instructions Recorded Confirmed Last Taken cyanocobalamin (vitamin B-12) 500 500 mcg PO QAM 04/01/20 02/01/23 07/02/21 08:00 mcg tablet acetaminophen 500 mg tablet 1,000 mg PO TID 06/15/20 02/01/23 07/02/21 23:40 cholecalciferol (vitamin D3) 10 400 unit PO QAM 06/15/20 02/01/23 07/02/21 08:00 mcg (400 unit) tablet (Vitamin D3) fluticasone propionate 50 1 spray intranasal QAM 06/15/20 02/01/23 07/02/21 08:00 mcg/actuation nasal spray,suspension (Flonase Allergy Relief) lifitegrast 5 % eye drops in a 1 drp ophthalmic (eye) BID 06/15/20 02/01/23 07/03/21 03:00 dropperette (Xiidra) loratadine 10 mg tablet 10 mg PO QAM 06/15/20 02/01/23 07/02/21 08:00 mupirocin calcium 2 % topical cream 1 applic topical UD PRN Skin 06/15/20 02/01/23 07/01/21 08:00 Irritation nystatin-triamcinolone topical 1 applic topical UD PRN Skin 06/15/20 02/01/23 07/01/21 08:00 cream Irritation peg 400-propylene glycol (PF) 0.4 1 drp ophthalmic (eye) UD PRN Dry 06/15/20 02/01/23 07/03/21 03:00 %-0.3 % eye drops in a dropperette Eye(S) (Systane (PF)) psyllium 1 tbsp PO BID 11/28/20 02/01/23 07/02/21 12:00 amoxicillin 500 mg capsule 2,000 mg PO ONCE PRN Other 12/12/22 02/01/23 Unknown apixaban 5 mg tablet (Eliquis) 5 mg PO BID 12/12/22 02/01/23 Unknown folic acid 1 mg tablet 1 mg PO DAILY 02/01/23 02/01/23 Unknown metoprolol tartrate 50 mg tablet 50 mg PO BID 02/01/23 02/01/23 Unknown Past Medical History Medical History (Updated 02/12/23 @ 09:45 by Olga Langford PA-C) 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 Eliquis. (2004 & 2006) Gout last flare yrs ago Hearing loss s/p hearing aids bilat History of blood transfusion alejandra-operatively History of duodenal ulcer MAY 2020 - RESOLVED History of gastritis Injury of right hip multiple times -- treated with physical therapy Lumbar spinal stenosis Pt unable to stand > 15 min in same space per PAT RN call On anticoagulant therapy Paroxysmal atrial fibrillation on Eliquis PSVT (paroxysmal supraventricular tachycardia) ~8750-1339, treated in [facility]. no problems since 2012. PVCs (premature ventricular contractions) follows with Dr. Roger SCC (squamous cell carcinoma) s/p excision Sleep apnea not currently on treatment Spinal fracture 2009 (L5 & L10 & L12) s/p fall Subdural hematoma 03/2022, follows with [facility] neuro Thrombocytopenia per [facility] heme onc, usual range 100,000-110,000-pre-op 01/2023: 87,000 Patient denies h/o stroke, seizures, heart attack, heart failure, DM, or HTN. Exercise / Class Metabolic Activity II 4-5 Yardwork/Stairs/Walk up hill (denies chest discomfort or shortness of breath walking up a hill) Past Family History Family History Father Heart disease Brother Heart disease Cancer Leukemia Past Surgical History Surgical History (Updated 02/11/23 @ 15:07 by Olga Langford PA-C) Brain bleed subdural hematoma-hospitalized at [place] Mar 2022 > due to a fall > surgical repair > was in ICU 11 days > Coumadin had been DC'ed was off thinner for a while, now on Eliquroberto H/O aortic valve repair August 2022 > [place] H/O shoulder surgery bilateral History of cardiac cath Feb 2022 > [place]avo > no stents History of cataract surgery bilateral History of cholecystectomy History of colonoscopy History of esophagogastroduodenoscopy (EGD) History of surgical removal of skin lesion Hx of hernia repair Right Open Inguinal Hernia Repair with Mesh Status post Mohs surgery HX Past Anesthesia History No Hx of Anesthesia Complications and No Family Hx of Anesthesia Complications History of PONV No Hx of PONV and No Hx of Motion Sickness Social History Smoking Status: Never smoker Do You Dip or Chew Tobacco: No Hx Alcohol Use: No Hx Substance Use: No substance use type: does not use Review of Systems Patient denies chest pain, shortness of breath, dyspnea on exertion, fever, chi lls, cough, wheezing, or palpitations. Physical Exam Vital Signs Vitals BP 122/69 P 57 TEMP 98.5 SP02 98% on RA RESP 18 Physical Patient resting comfortably in chair in no acute distress, alert and oriented, responding appropriately throughout visit Full cervical extension range of motion without pain TMD 3.5 finger breadths Mallampati Score 3 Dentition: several crowns, denies chipped or loose teeth, caps, implants or bridges Lungs: normal respiratory effort. Good air movement, clear throughout to auscultation, no adventitious breath sounds Cardiac: regular rate and rhythm, no murmurs noted Carotid arteries: negative bruit bilat Lab Results Anesthesia Preop Results Results Anesthesia Widget: WBC 4.72 K/ul (4.8-10.8) L 02/11/23 Hgb 12.2 g/dl (14.0-18.0) L 02/11/23 Hct 34.3 % (42.0-52.0) L 02/11/23 Plt 87 K/uL (130-400) L 02/11/23 Na 129 mmol/L (136-145) L 02/11/23 K 4.8 mmol/L (3.5-5.1) 02/11/23 Cl 94 mmol/L (98-107) L 02/11/23 CO2 31 mmol/L (21-32) 02/11/23 BUN 29 mg/dl (6-23) H 02/11/23 Creat 0.91 mg/dl (0.6-1.4) 02/11/23 Glucose Level 111 mg/dl (70-99(Fasting)) H 02/11/23 PT 11.9 Seconds (9.0-12.0) 02/11/23 PTT 32.5 Seconds (21.0-31.0) H 02/11/23 INR 1.1 (0.9-1.1) 02/11/23 Blood Type O Positive 02/11/23 Antibody Screen NEGATIVE 02/11/23 Testing Electrocardiogram Date: 12/10/22 Sinus bradycardia with 1st degree AV block with premature atrial complexes, rate 59 bpm Chest X-Ray Date: 09/05/22 *1view* Intact TAVR prosthesis. No pneumothorax. Echocardiogram Date: 11/15/22 EF 60-64% Mild cLVH Normal LV wall motion Moderately enlarged LA S/p TAVR with Jayson prosthetic valve, aortic valve prosthesis is absent Severe mitral annular calcification Mild mitral stenosis Mild mitral regurgitation Grade I diastolic dysfunction Stress Test Date: 11/04/17 Exercise MPHR 97% METS 7 Negative for ischemia Resting wall motion was normal with low normal LV EF Post-stress images revealed grossly normal response to exercise, however due to the patient's rapid heart rate recovery this reduces the sensitivity for de tecting ischemia by echocardiographic criteria Cervical Spine Date: 04/18/22 CT No evidence of acute fracture or traumatic malalignment of the cervical spine. Multilevel degenerative changes of the cervical spine as described. Partially visualized proximal left humerus fracture with hematoma and soft tissue swelling, better characterized on concurrently performed CT chest/abdomen/pelvis. Other Testing CT head 05/24/22 1. No acute intracranial abnormality detected by CT. 2. Resolving changes of left craniotomy/cranioplasty. 3. No right-sided extra-axial fluid collection appreciated. Chest CT 04/18/22 Comminuted, impacted left proximal humerus fracture. Mild dependent lower lobe bronchiectasis may be related to chronic microaspiration. No focal consolidations. Heavy dystrophic calcification of the aortic valve. Heavy atherosclerotic calcification of the coronary arteries.
--- NOTE | 2023-03-07 06:28 | History & Physical Report ---
Date of Service March 07, 2023 Assessment & Plan (1) Osteoarthritis of left shoulder: We will proceed with a left reverse shoulder arthroplasty. Postoperatively he will be placed in a sling and kept overnight in the hospital for postop medical management. He plans to use Secrette upon discharge. History of Present Illness Chief Complaint: Fracture malunion and osteoarthritis of the left shoulder. Primary Care Provider: Jose Angel WeeksDO Michael is a pleasant 82-year-old male who recently had a heart valve replaced. He slipped and fell on black ice in the parking lot back in March 2022. He had a small brain bleed from being on Coumadin and he had a left proximal humerus fracture. The humerus fracture was treated conservatively. He was switched to Eliquis. He then had his valve replaced. Unfortunately, he is dealing with significant pain and stiffness of his left shoulder. He is having trouble doing anything away from his body up overhead. He is really struggling with it. X- rays and clinical examination are diagnostic for fracture malunion of the left shoulder with advanced glenohumeral arthritis. After failing conservative treatment, he has elected to proceed with a left reverse shoulder arthroplasty. Allergies Allergy/AdvReac Type Severity Reaction Status Date / Time celecoxib Allergy Unknown DATA COMPILER Verified 02/01/23 13:51 USE CAUSED SEVERE HEARTBURN cyclosporine [From Restasis] Allergy Unknown eye Verified 02/01/23 13:51 irritation naproxen Allergy Unknown skin rash Verified 02/01/23 13:51 NSAIDS (Non-Steroidal Allergy Unknown HX Verified 02/01/23 13:51 Anti-Inflamma GASTRITIS, PT TAKES COUMADIN omeprazole Allergy Unknown SVT Verified 02/01/23 13:51 acetaminophen AdvReac Unknown GENERAL Verified 02/01/23 13:51 ILL FEELING aspirin AdvReac Unknown CANNOT Verified 02/01/23 13:51 TAKE DUE TO GASTRITIS codeine AdvReac Unknown GENERAL Verified 02/01/23 13:51 ILL FEELING enoxaparin [From Lovenox] AdvReac Unknown thrombocyto Verified 02/01/23 13:51 penia finasteride AdvReac Unknown CAUSED Verified 02/01/23 13:51 GASTRITIS garlic AdvReac Unknown stomach Verified 02/01/23 13:51 cramp, diarrhea heparin AdvReac Unknown "not to be Verified 02/01/23 14:09 used with Eliquis" per pt hydrocodone AdvReac Unknown vomiting Verified 02/01/23 13:51 hydromorphone [From Dilaudid] AdvReac Unknown constipatio Verified 02/01/23 13:51 n ibuprofen AdvReac Unknown CANNOT Verified 02/01/23 13:51 TAKE DUE TO GASTRITIS lidocaine AdvReac Unknown lidocaine Verified 02/01/23 13:51 patch --> sinus infection loratadine AdvReac Unknown RACING Verified 02/01/23 13:51 HEART onion AdvReac Unknown upset Verified 02/01/23 13:51 stomach/diarrhea oxycodone AdvReac Unknown "KNOCKS ME Verified 02/01/23 13:51 OUT" pseudoephedrine AdvReac Unknown RACING Verified 02/01/23 13:51 HEART rofecoxib AdvReac Unknown GENERAL Verified 02/01/23 13:51 ILL FEELING valdecoxib AdvReac Unknown GENERAL Verified 02/01/23 13:51 ILL FEELING Home Medications Medication Instructions Recorded Confirmed Type cyanocobalamin (vitamin B-12) 500 500 mcg PO QAM 04/01/20 02/01/23 History mcg tablet acetaminophen 500 mg tablet 1,000 mg PO TID 06/15/20 02/01/23 History cholecalciferol (vitamin D3) 10 400 unit PO QAM 06/15/20 02/01/23 History mcg (400 unit) tablet (Vitamin D3) fluticasone propionate 50 1 spray intranasal QAM 06/15/20 02/01/23 History mcg/actuation nasal spray,suspension (Flonase Allergy Relief) lifitegrast 5 % eye drops in a 1 drp ophthalmic (eye) BID 06/15/20 02/01/23 History dropperette (Xiidra) loratadine 10 mg tablet 10 mg PO QAM 06/15/20 02/01/23 History mupirocin calcium 2 % topical cream 1 applic topical UD PRN Skin 06/15/20 02/01/23 History Irritation nystatin-triamcinolone topical 1 applic topical UD PRN Skin 06/15/20 02/01/23 History cream Irritation peg 400-propylene glycol (PF) 0.4 1 drp ophthalmic (eye) UD PRN Dry 06/15/20 02/01/23 History %-0.3 % eye drops in a dropperette Eye(S) (Systane (PF)) psyllium 1 tbsp PO BID 11/28/20 02/01/23 History amoxicillin 500 mg capsule 2,000 mg PO ONCE PRN Other 12/12/22 02/01/23 History apixaban 5 mg tablet (Eliquis) 5 mg PO BID 12/12/22 02/01/23 History folic acid 1 mg tablet 1 mg PO DAILY 02/01/23 02/01/23 History metoprolol tartrate 50 mg tablet 50 mg PO BID 02/01/23 02/01/23 History cefadroxil 500 mg capsule 500 mg PO BID 10 days #20 caps 03/06/23 Rx oxycodone 5 mg tablet 5 mg PO Q6 PRN pain #30 tabs 03/06/23 Rx Past Med/Surg History Medical History Paroxysmal atrial fibrillation on Eliquis Subdural hematoma 03/2022, follows with [facility] neuro Hearing loss s/p hearing aids bilat History of blood transfusion alejandra-operatively 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 Roger History of duodenal ulcer MAY 2020 - RESOLVED History of gastritis Lumbar spinal stenosis Pt unable to stand > 15 min in same space per PAT RN call Injury of right hip multiple times -- treated with physical therapy Deep vein thrombosis x2 both DVT Right leg s/p shoulder surgery and the other after extended driving. Eliquis. (2004 & 2006) SCC (squamous cell carcinoma) s/p excision BCC (basal cell carcinoma) s/p excision Sleep apnea not currently on treatment Thrombocytopenia per [facility] heme onc, usual range 100,000-110,000-pre-op 01/2023: 87,000 On anticoagulant therapy Anemia monitoring per [facility] heme/onc Spinal fracture 2009 (L5 & L10 & L12) s/p fall Gout last flare yrs ago PSVT (paroxysmal supraventricular tachycardia) ~5224-6017, treated in [facility]. no problems since 2012. Surgical History History of cardiac cath Feb 2022 > [place] > no stents Hx of hernia repair Right Open Inguinal Hernia Repair with Mesh H/O aortic valve repair August 2022 > [place] Brain bleed subdural hematoma-hospitalized at [place] Mar 2022 > due to a fall > surgical repair > was in ICU 11 days > Coumadin had been DC'ed was off thinner for a while, now on Eliquis History of esophagogastroduodenoscopy (EGD) History of cataract surgery bilateral History of cholecystectomy History of colonoscopy Status post Mohs surgery HX History of surgical removal of skin lesion H/O shoulder surgery bilateral Family History Father Heart disease Brother Heart disease Cancer Leukemia Social History Smoking Status: Never smoker Second Hand Exposure: No; Do You Dip or Chew Tobacco: No; Hx Alcohol Use: No Hx Substance Use: No Preferred Language: Frisian Communication Ability: Effective [employer]ressed [employer] Equipment Mechanic Required: No Beliefs That Will Affect Care: None marital status: Current Living Situation: Spouse current occupational status: retired Feels Safe at Home: Yes Diet: regular Assistive Devices: CPAP, Glasses and Hearing Aid - Bilateral Review of Systems All systems reviewed & are unremarkable except as noted in HPI & below. Physical Exam On physical examination of left shoulder, he only has about 40 degrees of forward elevation 40 degrees of abduction. He is very tight. I have difficult to the gaining any more range of motion than this on exam. He is very painful with range of motion. Constitutional WD/WN, vitals as above Eyes PERRL, conjunctivae normal, anicteric sclerae ENMT external ear and nose normal, oropharynx normal Neck trachea midline, no thyromegaly Respiratory normal respiratory effort Cardiovascular RRR, no murmur, no edema Gastrointestinal (Abdomen) normal bowel sounds, soft, nontender, no hepatosplenomegaly Psychiatric A+Ox3, euthymic affect Results & Data Results & Data Laboratory Results . Diagnostic Findings X-rays of the right shoulder show signs of fracture malunion with a malunion of the greater tuberosity pulled medially. There is also glenohumeral arthritis.. PG Care Time/CCT Total # of Minutes Spent Total Time Spent with Patient: Total time spent is greater than 50% in coordination of care (as documented) at patient's floor/unit and/or counseling patient: Coding Level of Care Code None Diagnoses Osteoarthritis of left shoulder M19.012
[~2023-03-11 09:28] MED LIST changes: +ACETAMINOPHEN 500 MG TAB PO SCH; +ALLERGY Noted to ORDERED Medication SCH; -BCTCR/30 EXT; +BUPIVACAINE 0.5 % 5 MG/1 ML PF 10ML VIAL ONE; -CHOL1000 PO; -CMD/25 PO; -CYAN250T PO; -CYCL10TA6 PO; -DIAZ2TAB PO; +FAMOTIDINE 20 MG TAB PO SCH; -FLUT0.15 NAE; +GABAPENTIN 300 MG CAP PO SCH; +Ketorolac (*for OR use only*) 30 MG, dexAMETHasone 4 MG, KETAMINE HCL (**OR use only) 1... INFIL SCH; +LIDOCAINE 2% 2 ML VIAL/AMP(20MG/ML) INFIL ONE; -LIFI5DRO OPB; +LR 15ML/HR IV SCH; +LR 60ML/HR IV SCH; +MIDAZOLAM HCL 1 MG/ML 2ML VIAL ONE; -NYSTCRE11 EXT; +ONDANSETRON INJ 2 MG/ML 2 ML VIAL ONE; +ORTHO JOINT MIX INFIL SCH; +PROPOFOL IV EMULSION 10 MG/ML 20 ML VIAL IV ONE; +TRANEXAMIC ACID 1,000 MG **IV Intra-op IV SCH; +TRANEXAMIC ACID 1,000 MG **IV Pre-op IV SCH; -WARF2.5T8 PO; -ZOLP10TA PO; -[UNRECOGNIZED DRUG - CODE] PO; +ceFAZolin 2000MG 2,000 MG/15 ML SYR IV SCH; +dexAMETHasone 4 MG TAB PO SCH; +fentaNYL citrate PF 100 MCG/2 ML VIAL ONE
--- NOTE | 2023-03-11 10:15 | History & Physical Bridge Note ---
Date of Service March 11, 2023 History & Physical Bridge Note I have examined the patient, reviewed the History & Physical and in the interval since the performance of the History & Physical I have noted the following changes of clinical significance: no changes noted
[2023-03-11] MEDS ORDERED: ROCURONIUM BROMIDE 10 MG/ML 5 ML VIAL IV ONE (11:44)
[2023-03-11] MEDS ORDERED: ePHEDrine sulfate 50 MG/5 ML SYR ONE (11:57)
[2023-03-11] MEDS ORDERED: PHENYLEPHRINE HCL 10 MG/ML VIAL ONE (11:57)
[2023-03-11] MEDS ORDERED: PHENYLEPHRINE 100MCG/ML 10ML SYR IV ONE (11:57)
[2023-03-11] MEDS ORDERED: CALCIUM CHLORIDE 10% 10 ML SYR IV ONE (12:05)
[2023-03-11] MEDS ORDERED: GLYCOPYRROLATE 0.2 MG/ML VIAL ONE (12:08)
[2023-03-11] MEDS ORDERED: SUGAMMADEX SODIUM 200 MG/2 ML VIAL IV ONE (12:13)
--- NOTE | 2023-03-11 13:24 | Operative Report ---
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 The case took 50% longer than a standard reverse shoulder replacement due to difficulties with exposure and time spent taking down the old fracture malunion. A CPT code modifier 59: The long head of the biceps tendon was enlarged and inflamed consistent with tendinopathy. A tenodesis was opted. This was a separate and distinct portion of the procedure. For these reasons, a CPT code modifier 59 will be added to this case. Implants used: I used a [employer]omet Comprehensive reverse total shoulder arthroplasty system with a size 16 press fit micro humeral stem, a +6 offset humeral tray and a +3 retentive humeral bearing, a 25 mm baseplate with a 6.5 mm central screw and superior and inferior locking screws, and a size 40 mm eccentric glenosphere. Alec arrived at [facility] for the above procedure. He was seen in the preoperative holding area and the operative extremity was identified and signed. He was given a preoperative antibiotic, TXA, and an interscalene nerve block. He was taken back to the operating room, laid on table in supine position, and put under general anesthesia. He was then put into the beachchair position. The shoulder was then prepped and draped in sterile fashion. A timeout was done and the patient and the operative extremity was properly identified. A deltopectoral approach was used. Dissection was taken down through the fascia and the deltoid was retracted laterally and the conjoined tendon was retracted medially. The anterior shoulder was exposed. The biceps groove was opened up and the biceps tendon was examined extensively. The biceps tendon demonstrated enlargement and inflammatory changes consistent with longstanding inflammation in the context of osteoarthritis and cuff arthropathy. The long head of the biceps tendon was then tenodesed to the upper border of the pectoralis major. This was a separate and distinct portion of the procedure. The subscapularis was then directly released off the lesser tuberosity with a peel technique. The inferior capsule was released and the humeral head was dislocated. The dislocation was difficult. The greater tuberosity had healed medially with a malunion. Took significant time to expose the proximal humerus. The greater tuberosity fragment was freed up and the infraspinatus and teres minor were still attached. The bone of the greater tuberosity was removed because this would be unable to be repaired back anatomically. The infraspinatus and teres minor were tagged with Biomet ultra braid sutures for later repair. A canal finding reamer was sent down the center of the humeral canal. Sequential reaming up to a size 16 reamer was done. Off that reamer, a proximal humeral resection guide was placed. The proximal humerus was resected at 135 of inclination and 25 of retroversion. Osteophytes were then removed and the glenoid was exposed. Time was spent doing a complete capsular and labral release. The glenoid guide was then placed in the inferior aspect of the glenoid. The glenoid baseplate was then reamed. The final size 25 mm baseplate was then impacted in the place. A 6.5 mm central screw was then placed followed by superior and inferior locking screws. A 40 mm eccentric glenosphere was then impacted into place. Surrounding soft tissues were then injected with 100 cc an orthopedic pain control cocktail. The proximal humerus was then exposed. Sequential broaching of the humerus up to a size 16 broach was done. Off that broach a +6 offset and +3 retentive humeral tray was trialed. The shoulder was then reduced, brought through a full range of motion, and felt to be stable. I was able to get excellent abduction and external rotation but forward elevation was about 90 degrees before the scapula was involved. The shoulder was then dislocated and the broach was removed. The final size 16 micro press-fit humeral stem was then impacted into place. A +3 retentive humeral bearing was then snapped onto a +6 offset humeral tray. The humeral tray was then impacted onto the humeral stem. The shoulder was once again reduced, brought through a full range of motion, and felt to be stable. The subscapularis was retracted me dially and unable to be repaired. The sutures from the infraspinatus and teres minor were passed around the humeral neck. The sutures were then tied. This brought the posterior capsule around the back of the humerus. The shoulder was once again brought through a full range of motion and felt to be stable. A dilute betadyne lavage was then done for 3 minutes. The joint was then irrigated with normal saline solution. Hemostasis was obtained. The interval was closed with 2-0 Vicryl suture. The skin was then closed with 2-0 Vicryl and winifred. A Silverlon dressing was placed and the arm was rested in a regular arm sling. He was then extubated and transferred to a hospital bed. He taken to the postanesthesia care unit in stable condition. He tolerated the procedure well. Kameron Sanches PA-C, was present for the entire procedure. He was critical for patient positioning, prepping, draping, retraction exposure, wound closure and application of sterile dressing. I attest to the content of the Intraoperative Record and any orders documented therein. Any exceptions are noted below.
[2023-03-11] MEDS ORDERED: ATROPINE SULFATE 0.1 MG/ML 10ML SYR IV PRN (13:59)
[2023-03-11] MEDS ORDERED: ONDANSETRON INJ 2 MG/ML 2 ML VIAL IV PRN ×2 (13:59→16:37)
[2023-03-11] MEDS ORDERED: fentaNYL citrate PF 100 MCG/2 ML VIAL IV PRN (13:59)
[2023-03-11] MEDS ORDERED: ONDANSETRON INJ 2 MG/ML 2 ML VIAL ONE (14:00)
--- NOTE | 2023-03-11 14:01 | Anesthesiology Progress Note ---
Date of Service March 11, 2023 Anesthesia Post Procedure Vital Signs Vital Signs: Temp Pulse Resp BP Pulse Ox O2 Del Method 03/11/23 10:14 36.7 C 66 20 152/74 H 96 Room Air Transfer of Care Handoff Completed per policy Notes Mental Status: alert / awake / arousable Patient Amnestic to Procedure: Yes Nausea / Vomiting: adequately controlled Pain: adequately controlled Airway Patency, RR, SpO2: stable & adequate BP & HR: stable & adequate Hydration State: stable & adequate Anesthetic Complications: no major complications apparent and Pt Satisfied with anesthetic care
--- NOTE | 2023-03-11 14:27 | XRay Report ---
XR shoulder LT min 2V routine CLINICAL HISTORY: Post shoulder surgery TECHNIQUE: 3 views of the left shoulder were obtained. Comparison: None available at the time of this dictation. FINDINGS: Patient is status post shoulder arthroplasty with expected postsurgical changes including soft tissue swelling and subcutaneous emphysema. No periarticular lucency or hardware fracture is seen. IMPRESSION: Expected postoperative appearance status post placement of shoulder arthroplasty. ACT 112: Negative or not required by law. Electronically signed by: Ancelmo Salmon M.D. 03/11/2023 2:26 PM
[2023-03-11] MEDS ORDERED: MUPIROCIN 2% OINT 22 GM TUBE TOP PRN (16:37)
[2023-03-11] MEDS ORDERED: NALOXONE HCL 0.4 MG/1 ML VIAL/CARP IV PRN (16:37)
[2023-03-11] MEDS ORDERED: MAGNESIUM HYDROXIDE SUSP 30 ML UDC PO PRN (16:37)
[2023-03-11] MEDS ORDERED: traMADol HCL 50 MG TABLET PO PRN (16:37)
[2023-03-11] MEDS ORDERED: METOCLOPRAMIDE HCL INJ 5 MG/ML 2 ML VIAL IV PRN (16:37)
[2023-03-11] MEDS ORDERED: NON-FORMULARY MEDICATION (Peg 400-Propylene Glycol (Pf) [Systane (Pf)] 0.4-0.3 % Dropperet OP PRN (16:37)
[2023-03-11] MEDS ORDERED: bisacodyL 10 MG SUPP PR PRN (16:37)
[2023-03-11] MEDS: SODIUM CHLORIDE 0.9% 1,000 ML IV SCH (16:45)
[2023-03-11] MEDS ORDERED: ARTIFICIAL TEARS OP PRN (17:10)
[2023-03-11] MEDS ORDERED: NYSTATIN/TRIAMCIN CR 15 GM TUBE EXT PRN (17:58)
[2023-03-11] MEDS: ACETAMINOPHEN 500 MG TAB PO SCH ×2 (18:08→21:21)
[2023-03-11] MEDS ORDERED: SENNA 8.6 MG TAB PO SCH (21:00)
[2023-03-11] MEDS: ceFAZolin 2000MG 2,000 MG/15 ML SYR IV SCH (21:14)
[2023-03-11] MEDS: DOCUSATE SODIUM 100 MG CAP PO SCH (21:18)
[2023-03-11] MEDS: METOPROLOL TARTRATE 50 MG TAB PO SCH (21:19)
[2023-03-12] MEDS: SODIUM CHLORIDE 0.9% 1,000 ML IV SCH (02:39)
[2023-03-12] MEDS: ceFAZolin 2000MG 2,000 MG/15 ML SYR IV SCH (02:44)
[2023-03-12] MEDS: ACETAMINOPHEN 500 MG TAB PO SCH (05:36)
--- NOTE | 2023-03-12 07:01 | Orthopedic Progress Note ---
Date of Service March 12, 2023 Assessment & Plan (1) Status post reverse total replacement of left shoulder: Overall he is doing very well. He is not having much pain in the left shoulder. He will be seen by physical therapy today for ambulation and range of motion exercises. He can be discharged home later today. He will follow-up with orthopedics in 2 weeks. Samia Michael was seen and examined at bedside this morning. Overall is doing very well. He is not having much pain in the left shoulder. He was able to get some sleep last night. Has no complaints.. Review of Systems All systems reviewed & are unremarkable except as noted in HPI & below. Physical Exam On physical examination left shoulder, the dressing is clean and dry. He is we aring his sling as instructed. He has motion of his hand and his wrist but he still has some numbness from the block.. Results & Data Results & Data Laboratory Results . Diagnostic Findings Postoperative x-rays of the left shoulder show the prosthesis to be in anatomic alignment without any evidence of fracture complication, or loosening.. PG Care Time/CCT Total # of Minutes Spent Total Time Spent with Patient: Total time spent is greater than 50% in coordination of care (as documented) at patient's floor/unit and/or counseling patient: Coding Level of Care Code 20156 Post Operative Follow-Up Diagnoses Status post reverse total replacement of left shoulder Z96.612
--- NOTE | 2023-03-12 07:02 | Discharge Summary ---
Date of Service March 12, 2023 Admission HPI (Per Admitting) Alec is a pleasant 82-year-old male who recently had a heart valve replaced. He slipped and fell on black ice in the parking lot back in March 2022. He had a small brain bleed from being on Coumadin and he had a left proximal humerus fracture. The humerus fracture was treated conservatively. He was switched to Eliquis. He then had his valve replaced. Unfortunately, he is dealing with significant pain and stiffness of his left shoulder. He is having trouble doing anything away from his body up overhead. He is really struggling with it. X- rays and clinical examination are diagnostic for fracture malunion of the left shoulder with advanced glenohumeral arthritis. After failing conservative treatment, he has elected to proceed with a left reverse shoulder arthroplasty. Admission Exam (Per Admitting) On physical examination of left shoulder, he only has about 40 degrees of forward elevation 40 degrees of abduction. He is very tight. I have difficult to the gaining any more range of motion than this on exam. He is very painful with range of motion. Principal Diagnosis Same as "Discharge Diagnosis" noted below under Discharge Instructions. Discharge Exam On physical examination left shoulder, the dressing is clean and dry. He is wearing his sling as instructed. He has motion of his hand and his wrist but he still has some numbness from the block.. Discharge Data Procedures Performed Operation Date: 03/11/23 10:50 Actual Procedures p Left Reverse Total Shoulder Arthroplasty, Uncemented(Left) - Kameron Moore DO Ordered Studies 03/11/23 05:00 US - OR guided needle placemen Routine Hospital Course (1) Status post reverse total replacement of left shoulder: On March 11, 2023 Alec arrived at [facility] and underwent a left reverse shoulder replacement without complication. He had a general anesthetic and a left interscalene nerve block. Postoperatively he was placed in a sling and transferred to the general orthopedic floors. His hospital course was uneventful. On postop day #1, his vital signs were stable and his pain was well controlled. He was able to participate well with physical therapy doing ambulation and range of motion exercises. He was then discharged home. He will follow-up with orthopedics in 2 weeks. PG Care Time/CCT Total # of Minutes Spent Total Time Spent with Patient: Total time spent is greater than 50% in coordination of care (as documented) at patient's floor/unit and/or counseling patient: Discharge Plan Discharge Items Patient Disposition: Home - Home Health Services Reason For Visit: Left Shoulder Degenerative Joint Disease Discharge Diagnosis: Left reverse shoulder replacement Activity: Per Instructions section Non-emergency contact: Surgeon Call non-emergency contact if: your wound has increased redness and your wound has increased drainage Follow-up/Referrals: Jose Angel Weeks DO [Primary Care Provider] - Diet: Regular Addtl Attending Provider Instructions: Activity and Therapy Recommendations: * If you are using [facility] then therapy will be provided at your home until they feel you have accomplished all of your goals. * If you are using [facility] then Physical Therapy will be provided until they feel you are ready to start Outpatient Physical Therapy. * If you are not using home therapy then Outpatient Physical Therapy should start about 3-5 days from your day of surgery. Therapy will last about 8-12 weeks * Wear your sling for 3 weeks, unless otherwise instructed. You may remove your sling to shower and to dress, but otherwise, you should be in your sling at all times, including while sleeping * The shoulder replacement is very stable and you can use your hand while in the sling * You were shown a series of exercises in the hospital. Do these exercises daily including the exercises you were shown in physical therapy. Medications: * Narcotic You will likely be sent home from the hospital with a prescription for the narcotic pain medication that worked best throughout your stay. * Cefadroxil -take the antibiotic twice a day for 10 days to help prevent infection. * Other medications may be prescribed for specific circumstances. If you have any questions, please call the office at . * Resume previous home medications unless otherwise instructed Dressing Care: Leave the Silverlon dressing in place for 7 days. After 7 days you may remove the dressing. If the incision is not draining then you may leave the winifred open to air. If there is a little bit of drainage or if the winifred are getting stuck on your clothing then cover the incision with a dry dressing. The winifred will be removed at your 2 week follow-up appointment. Showering: You may shower with the Silverlon dressing in place. Do not let the shower spray hit the dressing directly. Pat the Silverlon dressing dry. If the dressing becomes wet underneath, then simply remove the dressing. Keep the incision dry until you are 7 days out from the day of surgery. After 7 days you may remove the Silverlon dressing and shower with the winifred exposed. Let soapy water run over the winifred and pat them dry. Do not scrub or soak the incision. Things To Watch For: * Drainage from the incision site that occurs more than one week after your surgery. * Increased redness at the incision site. * Fever above 102 degrees Fahrenheit. * Unusual chest pain or shortness of breath. * Call [facility] at with any of the above problems Follow-Up Visit: Follow-up with Dr. Moore's PA (Kameron Sanches) 2-3 weeks after your day of surgery. He will remove your winifred and answer any questions. If you have any additional questions or concerns, Dr Moore is usually in the o ffice at the same time and will be available An appointment was probably scheduled when you signed-up for surgery in the office. If you have any questions call More detailed instructions as well as Frequently Asked Questions were provided in a folder by our office when you signed-up for surgery. Please review these instructions when you get home. If you have any further questions or concerns, please feel free to call the office at [phone] Pending Studies at Discharge: No Stand-Alone Forms: My [facility] Medications and DC Order Prescriptions: Continued cyanocobalamin (vitamin B-12) 500 mcg tablet 500 mcg PO QAM cefadroxil 500 mg capsule 500 mg PO BID 10 Days Qty: 20 0RF oxycodone 5 mg tablet 5 mg PO Q6 PRN (Reason: pain) Qty: 30 0RF psyllium Powder 1 tbsp PO BID Rx Instructions: mix into at least 8 oz of water or juice before administering amoxicillin 500 mg capsule 2,000 mg PO ONCE PRN (Reason: Other) Patient Comments: dental Eliquis 5 mg tablet 5 mg PO BID acetaminophen 500 mg Tablet 1,000 mg PO TID fluticasone propionate [Flonase Allergy Relief] 50 mcg/actuation Whitney,Suspension 1 spray INTRANASAL QAM cholecalciferol (vitamin D3) [Vitamin D3] 10 mcg (400 unit) Tablet 400 unit PO QAM Systane (PF) 0.4-0.3 % Dropperette 1 drp OPHTHALMIC (EYE) UD PRN (Reason: Dry Eye(S)) Xiidra 5 % Dropperette 1 drp OPHTHALMIC (EYE) BID mupirocin calcium 2 % Cream 1 applic TOPICAL UD PRN (Reason: Skin Irritation) nystatin-triamcinolone Cream 1 applic TOPICAL UD PRN (Reason: Skin Irritation) metoprolol tartrate 50 mg Tablet 50 mg PO BID folic acid 1 mg Tablet 1 mg PO DAILY Admission Data Admit Date/Time: 03/11/23 13:38 Attending Provider: Kameron Moore Admit Provider: Kameron Moore Primary Care Provider: Jose Angel Weeks Other Providers: [facility]
[2023-03-12 07:24] LABS: Basophils # (auto) 0.01 K/uL (0.00-0.20); Basophils % (auto) 0.1 %; Hematocrit (blood only) 32.9 % (42.0-52.0); Hemoglobin 11.1 g/dl (14.0-18.0); Immature Granulocytes # (auto) 0.07 K/uL (0.01-0.20); Immature Granulocytes % (auto) 0.7 %; Lymphocytes % (auto) 6.1 %; Mean Corpuscular Hemoglobin 35.1 pg (25.0-34.0); Mean Corpuscular Hgb Conc 33.7 g/dL (32.0-36.0); Mean Corpuscular Volume 104.1 fL (80.0-100.0); Monocytes # (auto) 0.63 K/uL (0.11-0.59); Monocytes % (auto) 6.4 %; Neutrophils # (auto) 8.54 K/uL (1.40-6.50); Neutrophils % (auto) 86.7 %; Platelet Count 70 K/uL (130-400); RDW Coefficient of Variation 11.7 % (11.5-14.5); RDW Standard Deviation 44.9 fL (36.4-46.3); Red Blood Count 3.16 M/uL (4.70-6.10); White Blood Count 9.85 K/ul (4.8-10.8)
[2023-03-12 07:35] LABS: BUN Creatinine Ratio 26.4 (10-20); Calcium 9.2 mg/dl (8.6-10.3); Creatinine Clr Calc Pharmacy 57.4 ml/min; Est GFR (African American) 76.4 ml/min; Potassium 4.5 mmol/L (3.5-5.1)
[2023-03-12] MEDS ORDERED: APIXABAN 5 MG TABLET PO SCH (08:00)
[2023-03-12] MEDS ORDERED: dexAMETHasone 4 MG TAB PO SCH (08:00)
[2023-03-12] MEDS: DOCUSATE SODIUM 100 MG CAP PO SCH (08:27)
[2023-03-12] MEDS: METOPROLOL TARTRATE 50 MG TAB PO SCH (08:27)
[2023-03-12] MEDS ORDERED: FLUTICASONE PROPIONATE NA SPR 16 GM BTL SCH (09:00)
[2023-03-12] MEDS ORDERED: MULTIVITAMIN TAB PO SCH (09:00)
--- OUTSIDE RECORDS SUMMARY | 2023-03-13 08:37 | External Medical Summary | Summary of Care ---
Author Name Unknown Organization [facility] Address [address] [place] [address] Phone [phone] Care Team Providers Care Operating Engineer Apprentice Name Role Phone Micky Jose Angel Bazan DO Primary Care Provider [phone] Reason for Visit * Reason Onset Date Comments Advice 03/08/2023 Constantino Encounter Details Date Type Department Care Team (Late st Contact Info) Description 03/08/2023 Telephone Hematology/Oncology [facility] [address] [place] [address] Edmar Meeks MD [address] [place] [address] Advice (Constantino) Allergies Active Allergy Reactions Criticality Noted Date Comments Ibuprofen 12/12/2013 Aspirin 07/03/2021 Other reaction(s): CANNOT TAKE DUE TO GASTRITIS Valdecoxib 03/03/2013 General ill feeling Celecoxib Other (Please comment) 08/27/2017 senior living use caused heart-burn Codeine 12/12/2022 Other Reaction(s): GENERAL ILL FEELING Cyclosporine 12/12/2013 Finasteride Other (Please comment) 08/18/2020 Gastritis, duodenitis Garlic 06/27/2021 Other reaction(s): stomach cramp, diarrhea Hydrocodone 06/27/2021 Other reaction(s): vomiting Hydrocodone-Acetaminophe n 03/03/2013 vomiting Hydromorphone Other (Please comment) 08/27/2017 Severe constipation Lidocaine Other (Please comment) 08/27/2017 Lidocaine patch - sinus infection Loratadine 02/10/2013 Raising heart Enoxaparin Other (Please comment) High 12/19/2020 Affected platelet count Naproxen Sodium 10/21/2012 Rash Onion 06/27/2021 Other reaction(s): upset stomach/diarrhea Omeprazole 10/21/2012 contributed to PSVT Pseudoephedrine 06/27/2021 Other reaction(s): RACING HEART Cyclosporine 04/08/2014 Rofecoxib 03/03/2013 General ill feeling and stomach upset documented as of this encounter (statuses as of 03/08/2023) Medications Medication Sig Dispensed Refills Start Date End Date Status ALAVERT [address] one pill on tongue once daily as needed for allergies 30 Tab 5 10/21/2012 Active VITAMIN B-12 500 MCG PO TABSIndications: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 0 10/22/2012 Active fluticasone (FLONASE) 50 MCG/ACT nasal sprayIndications:Power House Engineer natalia rhinitis USE TWO SPRAYS IN EACH NOSTRIL ONCE DAILY 16 g 4 10/27/2014 Active Additional Information Patient taking differently: 1 [place] Nasal Daily(AM), Reported on 09/13/2022 Vitamin D3 10 MCG (400 UNIT) Oral Tablet (cholecalciferol) Take 1 Tablet by mouth in the morning. 0 Active Artificial Tears 0.1-0.3 % Ophthalmic Solution (Dextran 70-Hypromellose) Instill into eye at bedtime. 0 Active Konsyl Original Formula 100 % Oral Powder (Psyllium)Indications :Drug-induced constipation Take two teaspoons by mouth twice daily (patient home med) 660 g 5 05/18/2022 Active Xiidra 5 % Ophthalmic Solution (Lifitegrast)Indicati ons:Dry eye Instill 1 Drop into eye 2 times a day. After breakfast and after lunch 60 Each 05/18/2022 Active Systane Overnight Therapy 0.3 % Ophthalmic Gel (Hydroxypropyl Methylcellulose (Hypromellose))Indica tions:Dry eye Instill 1 Drop into both eyes at bedtime. 10 g 1 05/18/2022 Active Nystatin-Triamcinolon e 355270-6.1 UNIT/GM-% External Cream (Mycolog)Indications: Chronic dermatitis APPLY TOPICALLY NEEDED DIRECTED BY PHYSICIAN, uses in groin 30 g 2 05/30/2022 Active Metoprolol Tartrate 50 MG Oral Tablet (Lopressor)Indication s:Paroxysmal atrial fibrillation (HCC) Take 1 Tablet by mouth in the morning and 1 Tablet before bedtime. 180 Tablet 3 05/30/2022 Active Acetaminophen 500 MG Oral Tablet (Tylenol) Take 2 Tablets by mouth every 8 hours as needed for Pain, Mild or Pain, Moderate. 0 09/12/2022 Active Xiidra 5 % Ophthalmic Solution INSTILL ONE DROP IN EACH EYE TWO TIMES A DAY 180 Each 4 09/18/2022 Active Apixaban 5 MG Oral Tablet (Eliquis)Indications: History of recurrent deep vein thrombosis (DVT) Take 1 Tablet by mouth in the morning and 1 Tablet before bedtime. 60 Tablet 5 12/18/2022 Active Folic Acid 1 MG Oral Tablet Take 1 Tablet by mouth in the morning. 30 Tablet 5 12/18/2022 Active Mupirocin Calcium 2 % External Cream (Bactroban) Apply topically to affected area 3 times a day. Opening area on face. 30 g 3 01/29/2023 Active documented as of this encounter (statuses as of 03/08/2023) Active Problems Problem Noted Date Diagnosed Date Paroxysmal atrial fibrillation 01/29/2023 Obstructive sleep apnea of adult 01/29/2023 Status post transcatheter ao rtic valve replacement (TAVR) using bioprosthesis 09/04/2022 Aortic ectasia 05/18/2022 Atherosclerosis of [place] co 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 angina pectoris 05/18/2022 Closed fracture of proximal end of left humerus 04/19/2022 Personal history of fall 04/19/2022 History of subdural hematoma 04/18/2022 Lumbar degenerative disc disease 07/25/2021 Benign prostatic hyperplasia with urinary freque ncy 12/19/2020 Chronic hyponatremia 12/19/2020 Generalized osteoarthritis of multiple sites 10/2018 Mild ascending aorta dilatation 10/10/2017 Mild aortic valve regurgitation 10/10/2017 History of nonmelanoma skin cancer 09/05/2017 Overview: BCC left chest 09/12 BCC right upper back BCC left protestant History of compression fracture of spine 018 Overview: Winter , T10, L5 - traumatic 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 leg, recurrent Diastolic dysfunction 07/06/2016 Thrombocytopenia 06/05/2013 senior living current use of anticoagulant therapy 0 10/21/2012 Overview: ICD-10 update of inactive term Insomnia Chronic rhinitis documented as of this encounter (statuses as of 03/08/2023) Resolved Problems Problem Noted Date Diagnosed Date Resolved Date Hypertensive heart disease with heart failure 05/18/1901/29/2023 Supraventricular tachycardia 05/18/2022 01/29/2023 Aortic stenosis 03/20/2022 05/18/2022 Severe aortic valve stenosis 05/20/2019 09/05/2022 Premature atrial contractions 10/10/2017 09/12/2022 Heart failure, diastolic, due to HTN 03/16/2016 07/06/2016 Dry eyes 04/16/2013 08/27/2017 Anticoagulation management encounter 10/21/2012 09/12/2022 Deep vein thrombosis 018 Basal cell carcinoma 018 documented as of this encounter (statuses as of 03/08/2023) Immunizations Name Administration Dates Next Due COVID-19 mRNA, LNP-s, No Pre serve, 2-Dose Series (The Backscratchers) 08/02/2021,02/13/2021,07/28/2020,06/27 COVID-19, MRNA-LNP, 23-24, P F, 30 MCG/0.3 mL, 12 YRS AND ABOVE, IM (CleanFish-Comirnat) 02/12/2023 Covid-19, Mrna, Lnp-s, Pf, B ivalent, 30 Mcg, IM, 12 yrs and above (Pfizer) 10/11/2022,01/30/2022 Pneumococcal Conjugate Vacc, 13 Valent (Prevnar) 03/15/2015 Pneumococcal Polysaccharide PPV23 (Pneumovax) 10/22/2011 SEASONAL INFLUENZA, PF, 6 M & Above, IM , (FLULAVAL or FLUZONE) 01/29/2020,01/10/2018 Seasonal Influenza, Quadriva lent Hd (Fluzone Hd) 01/29/2023,02/07/2022,01/17/2021 Seasonal Influenza, Quadriva lent, No Preserve, IM 01/07/2017,01/13/2016,01/28/2015 01/29/2016 Seasonal Influenza, Split, I IV3, With Preserve, Inj 01/28/2015,01/22/2014,02/05/2013 Seasonal Influenza, Trivalen t, Adjuvanted, 65+ yrs 01/02/2019 TDAP (age 10 and older)(Boostrix) 03/16/2016, Varicella Zoster Vaccine (Adult) 09/19/2017,09/28 Zoster Vaccine Recombinant (Shingrix) 06/27/2018 ,03/04/2018,09/19/2017 documented as of this encounter Social History Tobacco Use Types Packs/Day Years Used Date Smoking Tobacco: Never Passive Smoke Exposure: Past Smokeless Tobacco: Never Comments:No passive smoke ex posure Alcohol Use Standard Drinks/Week Comments No 0 (1 standard drink = 0.6 oz pur e alcohol) PHQ-2 Answer Date Recorded PHQ Adult Total Score 2 10/26/2022 Hunger Vital Sign Answer Date Recorded Within the past 12 months, y ou worried that your food would run out before you got the money to buy more. Never true 10/27/19 23 Within the past 12 months, t he food you bought just didn't last and you didn't have money to get more. Never true 10/26/2022 Sex and Gender Information Value Date Recorded Sex Assigned at Male 09/02/2018 1:38 PM EDT Gender Identity Male 09/02/2018 1:38 PM EDT Sexual Orientation Straight 09/02/2018 1: 38 PM EDT Job Start Date Occupation Industry Not on file Not on file Not on file documented as of this encounter Functional Status Functional Status Response Date of Assess ment Are you deaf or do you have serious difficulty h earing? No 09/04/2022 Are you blind or do you have serious difficulty seeing, even when wearing glasses? No 09/04/2022 Do you have serious difficul ty walking or climbing stairs? (5 years old or older) No 09/04/2022 Do you have difficulty dress ing or bathing? (5 years old or older) No 09/04/2022 Because of a physical, menta l, or emotional condition, do you have difficulty doing errands alone such as visiting a doctor s office or shopping? (15 years old or older) No 09/05/19 Cognitive Status Response Date of Assessm ent Because of a physical, menta l, or emotional condition, do you have serious difficulty concentrating, remembering, or making decisions? (5 years old or older No 09/04/2022 documented as of this encounter Miscellaneous Notes * Telephone Encounter - Aleksander River RN - 03/08/2023 3:[address] Meeks: "Blood workup done on 03/08/2023: -WBC 4800, H&H of 13/39.6, Platelet count 80625. Overall stable blood counts, mild thrombocytopenia which is stable." TT sent to [facility]. Called patient to make him aware of results. * Telephone Encounter - Aleksander River RN - 03/08/2023 1:23 PM EST Called patient- he is on his way to [facility] lab now. * Addendum Note - Aleksander River RN - 03/08/2023 10:04 AM ESTAddended by: ALEKSANDER RIVER on: 03/08/2023 10:04 AM Modules accepted: Orders * Telephone Encounter - Aleksander River RN - 03/08/2023 10:01 AM EST Left message for patient to return call and that he will need to go to lab today. * Telephone Encounter - Naomi Arce OSA - 03/08/2023 8:48 AM EST Recvd a call from Olga Langford NP from [facility]. She states per Dr. Meeks recommendation that the pt have a CBC with diff 3 days prior to pts surgery. Pt is scheduled for surgery this coming Saturday03/11/23. They do not see where there was an order placed or that the pt is aware that this lab work needs to be done. She states they need to have everything completed by 3pm today 03/08/23. Asking for a return call at her direct line [phone] documented in this encounter Plan of Treatment Upcoming Encounters Date Type Department Care Team (Late st Contact Info) Description 04/10/2023 11:15 AM EST Office Visit Hematology/Oncology [facility] [address] [place] [address] Edmar Meeks MD [address] [place] [address] 06/04/2023 2:00 PM EST Office Visit Family Practice [address] [place] [address] [address] [facility] [address] Jose Angel Weeks DO 293 [facility], [place] [address] 07/30/2023 10:40 AM EDT Office Visit Neurology [facility] [address] [place] [address] Marquita Herrera PA-C [address] [place] [address] 10/28/2023 2:00 PM EDT Cardiac Studies Cardiac Studies, [facility] [address] [facility] [place] [address] 12/09/2023 2:15 PM EDT Office Visit Dermatology [facility] [address] [place] [place] [address] Jacky Arroyo MD 200 [facility] [place] [address] Scheduled Procedures Name Priority Associated Diagnoses Date/Ti me ESOPHAGOGASTRODUODENOSCOPY ( EGD), FLEXIBLE, TRANSORAL, DIAGNOSTIC Recall Gastric polyps COLONOSCOPY FLEXIBLE PROXIMAL DIAGNOSTIC Recall History of colonic polyps Health Maintenance Due Date Last Done Comments Depression Screening 10/27/2023 10/26/2022 COLONOSCOPY-EVERY 5 YRS AGES 18-100 06/24/2025 06/24/2020, 09/18/2016, 09/18/2016 DTaP,Tdap,and Td Vaccines (3 - Td or Tdap) 03/16/2026 03/16/2016, 10/21/2004 Pneumococcal Vaccine: 65+ Years Completed 03/15/2015, 10/22/2011 Zoster Vaccines Completed 06/27/2018, 09/2017, 09/19/2017, Additional history exists COLONOSCOPY-EVERY 3 YRS AGES 18-100 Discontinued 06/24/2020, 09/18/2016, 09/18/2016 Influenza Vaccine (FLU shot) Completed 01/29/2023, 02/07/2022, 01/17/2021, Additional history exists COVID-19 Vaccine Completed 02/12/2023, , 01/30/2022, Additional history exists GARDASIL-HPV IMMUNIZATION SERIES Aged Out No longer eligible based on patient's age to complete this topic Hepatitis B Aged Out No longer eligi ble based on patient's age to complete this topic MENINGOCOCCAL (MENACTRA/MENVEO) Aged Out No longer eligible based on patient's age to complete this topic documented as of this encounter Medical Devices Implanted Type Area Engineering Leader Device Identifier Shelf Expiration Date Model / Serial / Lot Cover Venus Hole 17mm 421.554 - [id number] Implanted:Qty : 1 on 04/20/2022 by Prudencio Sung III, MD at [place] [facility] [place] Left: Head SYNTHES MAXILLOFACIAL 421.554 / / Valve Tavr Jayson 29mm - [id number] Implanted:Qty : 1 on 09/05/2022 by Alexis Crenshaw MD at [facility] [place] [employer] [id number] 03/08/2023 [id number] / / documented as of this encounter Visit Diagnoses Diagnosis Thrombocytopenia (HCC)- Primary Thrombocytopenia, unspecified documented in this encounter Advance Directives Documents on File Type Date Recorded Patient Parole Agent Expl anation Advance Directives and Living Will 03/19/2022 LIVING WILL-LIVING W ILL Latest Code Status on File Code Status Date Activated Date Inactivated Comments Full Code 09/04/2022 4:40 PM 09/05/2022 6:38 PM This o rder reflects the patients wishes and were consensually agreed upon. Question Answer Comments Discussion of Advance Directives occurred with: Patient Code Status History Code Status Date Activated Date Inactivated Comments No Code 04/18/2022 7:23 PM 04/28/2022 5:35 PM Thi s order reflects the patients wishes and were consensually agreed upon. Question Answer Comments Discussion of Advance Directives occurred with: Patient Care Teams Operating Engineer Apprentice Relationship Specialty Start Date End Date Jose Angel Weeks DO [address] [facility] [place] [address] PCP - General Internal Medicine 07/25/21 documented as of this encounter
--- OUTSIDE RECORDS SUMMARY | 2023-03-13 08:37 | External Medical Summary | Summary of Care ---
Author Name Unknown Organization [facility] Address [address] [place] [address] Phone [phone] Care Team Providers Care Stakeholder Manager Name Role Phone Micky Jose Angel Bazan DO Primary Care Provider Reason for Visit * Reason Onset Date Comments Advice 03/08/2023 Constantino Encounter Details Date Type Department Care Team (Late st Contact Info) Description 03/08/2023 Telephone Hematology/Oncology [facility] [address] [place] [address] Edmar Meeks MD [address] 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 rhinitis USE TWO SPRAYS IN EACH NOSTRIL ONCE DAILY 16 g 4 10/27/2014 Active Additional Information Patient taking differently: 1 [place] Nasal Daily(AM), Reported on 09/13/2022 Vitamin D3 [...] 10 g 1 05/18/2022 Active Nystatin-Triamcinolon e 828084-8.1 UNIT/GM-% External Cream (Mycolog)Indications: Chronic dermatitis APPLY [...] bioprosthesis 09/04/2022 Aortic ectasia 05/18/2022 Atherosclerosis of [place] co 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 angina pectoris 05/18/2022 [...] 09/12 BCC right upper back BCC left uatsdin History of compression fracture of spine 018 Overview: Winter , T10, L5 - traumatic 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 leg, recurrent Diastolic dysfunction 07/06/2016 Thrombocytopenia 06/05/2013 correction current use of anticoagulant therapy 0 10/21/2012 [...] mRNA, LNP-s, No Pre serve, 2-Dose Series (CQuotient) 08/02/2021,02/13/2021,07/28/2020,06/27 COVID-19, MRNA-LNP, 23-24, P F, 30 MCG/0.3 mL, 12 YRS AND ABOVE, IM (Catalyst Mobile-Comirnat) 02/12/2023 Covid-19, Mrna, Lnp-s, Pf, B ivalent, [...] a call from Olga Langford NP from [facility]. She states per Dr. Meeks recommendation [...] a return call at her direct line [phone] documented in this encounter Plan of Treatment Upcoming Encounters Date Type Department Care Team (Late st Contact Info) Description 04/10/2023 11:15 AM EST Office Visit Hematology/Oncology [facility] [address] [facility] [place] [address] Edmar Meeks MD 200 [facility] [place] [address] 06/04/2023 2:00 PM EST Office Visit Family Practice [address] [place] [address] 293 [facility] [place] [address] Jose Angel Weeks DO 293 [facility] [place] [address] 07/30/2023 10:40 AM EDT Office Visit Neurology [facility] [address] [place], [place] [address] Marquita Herrera PA-C 200 [facility] [place] [address] 10/28/2023 2:00 PM EDT Cardiac Studies [facility] [address] [facility] [address] 12/09/2023 2:15 PM EDT Office Visit Dermatology [facility] 200 [facility] [place], [place] [address] Jacky Arroyo MD 200 [facility] [place], [place] [address] Scheduled Orders Name Type Priority Associated Diagnoses Orde r Schedule CBC WITH WBC DIFFERENTIAL Lab STAT Thrombocytopenia (HCC) Expected: 03/08/2023, Expires: 03/08/2024 Scheduled Procedures Name Priority Associated Diagnoses Date/Ti [...] this encounter Medical Devices Implanted Type Area Customer Quality Engineer Device Identifier Shelf Expiration Date Model / Serial / Lot Cover [place] Hole 17mm 421.554 - [id number] Implanted:Qty : 1 on 04/20/2022 by Prudencio Sung III, MD at [place] [facility] [place] Left: Head SYNTHES MAXILLOFACIAL 421.554 / / Valve Tavr Jayson 29mm - [id number] Implanted:Qty : 1 on 09/05/2022 by Alexis Crenshaw MD at [facility] [place] [employer] [id number] 03/08/2023 [id number] / / documented as of this encounter Visit Diagnoses Diagnosis Thrombocytopenia (HCC)- Primary Thrombocytopenia, unspecified documented in this encounter Advance Directives Documents on File Type Date Recorded Patient Wagon Driver Expl anation Advance Directives and Living Will [...] Advance Directives occurred with: Patient Care Teams Stakeholder Manager Relationship Specialty Start Date End Date Jose Angel Weeks DO [address] [place] [address] PCP - General Internal Medicine 07/25/21 documented as of this encounter
--- OUTSIDE RECORDS SUMMARY | 2023-03-13 08:37 | External Medical Summary ---
Author Name Unknown Address Unknown Organization [id number][facility] [place] [address] Laboratory Report Ordering Provider Test Date Status LEW JARQUIN 03/08/2023 13:45:53 Final Observation Date Value Abnormality Reference (Units ) Status SYNC LEUKOCYTES IN BLOOD BY AUTOMATED COUNT 03/08/2023 13:45:53 4.82 4.00-10.80 (K/uL) Final Segs 03/08/2023 13:45:53 55.6 40.0-75.0 (%) Final Lymphs % 03/08/2023 13:45:53 31.7 18.0-42.0 (%) Final Monos 03/08/2023 13:45:53 10.2 1.0-11.0 (%) Final Eosinophils 03/08/2023 13:45:53 2.3 0.0-6.0 (%) Final Basos 03/08/2023 13:45:53 0.2 0.0-2.0 (%) Final Absolute Segs 03/08/2023 13:45:53 2.68 1.80-7.70 (K/uL) Final Lymphs, absolute 03/08/2023 13:45:53 1.53 1.00-4.80 (K/ul) Final Monos, Abs 03/08/2023 13:45:53 0.49 0.00-1.10 (K/uL) Final Eos, Abs 03/08/2023 13:45:53 0.11 0.00-0.70 (K/uL) Final Basos, Abs 03/08/2023 13:45:53 0.01 0.00-0.20 (K/uL) Final Performing Location [facility] [place] [place] [address]
--- OUTSIDE RECORDS SUMMARY | 2023-03-13 08:37 | External Medical Summary ---
Author Name Unknown Address Unknown Organization [id number][facility] [place] [address] Laboratory Report Ordering Provider Test Date Status LEW JARQUIN 03/08/2023 13:45:53 Final Observation Date Value Abnormality Reference (Units ) Status Nucleated erythrocytes/100 leukocytes [Ratio] in Blood by Automated count 03/08/2023 13:45:53 Final Performing Location [facility] [place] [address]
--- OUTSIDE RECORDS SUMMARY | 2023-03-13 08:37 | External Medical Summary | Summary of Care ---
Author Name Unknown Organization [facility] Address [address] [place] [address] Phone [phone] Care Team Providers Care Fiberglass Tube Molder Name Role Phone EmilianoherminiaJose Angel DO Primary Care Provider [phone] Reason for Visit * Reason Comments Outpatient Testing Encounter Details Date Type Department Care Team (Late st Contact Info) Description 03/08/2023 1:50 PM EST Laboratory Laboratory [facility] [address] [place] [id number] [facility] 200 [facility] [place] [address] Thrombocytopenia (HCC) Allergies Active Allergy Reactions Criticality Noted Date Comments Ibuprofen 12/12/2013 Aspirin 07/03/2021 Other reaction(s): CANNOT TAKE DUE TO GASTRITIS Valdecoxib 03/03/2013 General ill feeling Celecoxib Other (Please comment) 08/27/2017 auto body technician use caused heart-burn Codeine 12/12/2022 Other Reaction(s): [...] 10/22/2012 Active fluticasone (FLONASE) 50 MCG/ACT nasal sprayIndications:Male Model natalia rhinitis USE TWO SPRAYS IN EACH NOSTRIL ONCE DAILY 16 g 4 10/27/2014 Active Additional Information Patient taking differently: 1 [place]ryn Nasal Daily(AM), Reported on 09/13/2022 Vitamin D3 10 MCG (400 UNIT) Oral Tablet (cholecalciferol) Take 1 Tablet by mouth in the morning. 0 Active Artificial Tears 0.1-0.3 % Ophthalmic Solution (Dextran 70-Hypromellose) Instill into eye at bedtime. 0 Active Konsyl Original Formula 100 % Oral Powder (Psyllium)Indications :Drug-induced constipation Take two teaspoons by mouth twice daily (patient home med) 660 g 05/18/2022 Active Xiidra 5 % Ophthalmic Solution (Lifitegrast)Indicati ons:Dry eye Instill 1 Drop into eye 2 times a day. After breakfast and after lunch 60 Each 05/18/2022 Active Systane Overnight Therapy 0.3 % Ophthalmic Gel (Hydroxypropyl Methylcellulose (Hypromellose))Indica tions:Dry eye Instill 1 Drop into both eyes at bedtime. 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 leg, recurrent Diastolic dysfunction 07/06/2016 Thrombocytopenia 06/05/2013 retirement current use of anticoagulant therapy 0 10/21/2012 Overview: ICD-10 update of inactive term Insomnia Chronic rhinitis documented as of this encounter (statuses as of 03/08/2023) Resolved Problems Problem Noted Date Diagnosed Date Resolved Date Hypertensive heart disease with heart failure 05/18/19 23 01/29/2023 Supraventricular tachycardia 05/18/2022 01/29/2023 Aortic stenosis 03/20/2022 [...] mRNA, LNP-s, No Pre serve, 2-Dose Series (Kiko) 08/02/2021,02/13/2021,07/28/2020,06/27 COVID-19, MRNA-LNP, 23-24, P F, 30 MCG/0.3 mL, 12 YRS AND ABOVE, IM ([employer] [facility]) 02/12/2023 Covid-19, Mrna, Lnp-s, Pf, B ivalent, [...] (15 years old or older) No 09/05/19 23 Cognitive Status Response Date of Assessm ent Because of a physical, menta l, or emotional condition, do you have serious difficulty concentrating, remembering, or making decisions? (5 years old or older No 09/04/2022 documented as of this encounter Plan of Treatment Upcoming Encounters Date Type Department Care Team (Late st Contact Info) Description 04/10/2023 11:15 AM EST Office Visit Hematology/Oncology [facility] [address] [place] [address] Edmar Meeks MD 200 [facility] [place] [address] 06/04/2023 2:00 PM EST Office Visit Family Practice [address] [place] [address] [facility] [address] Jose Angel Weeks DO 293 [facility] [place] [address] 07/30/2023 10:40 AM EDT Office Visit Neurology [facility] [address] [place] [address] Marquita Herrera PA-C [address] [place] [address] 10/28/2023 2:00 PM EDT Cardiac Studies Cardiac Studies, [facility] 132 [facility] [place] [address] 12/09/2023 2:15 PM EDT Office Visit Dermatology [facility] [address] [place] [address] Jacky Arroyo MD [address] [place] [address] Pending Results Name Type Priority Associated Diagnoses Date /Time CBC WITH WBC DIFFERENTIAL Lab STAT Thrombocytopenia (HCC) 03/08/2023 1:45 PM EST CBC Lab STAT Thrombocytopenia (HCC) 03/08/2023 1:45 PM EST DIFFERENTIAL, AUTOMATED Lab STAT Thrombocytopenia (HCC) 03/08/2023 1:45 PM EST Scheduled Procedures Name Priority Associated Diagnoses Date/Ti [...] this encounter Medical Devices Implanted Type Area Mobile Marketing Manager Device Identifier Shelf Expiration Date Model / Serial / Lot Cover [place] 17mm 421.554 - [id number] Implanted:Qty : 1 on 04/20/2022 by Prudencio Sung III, MD at [facility] Left: Head SYNTHES MAXILLOFACIAL 421.554 / / Valve Tavr Jayson 29mm - [id number] Implanted:Qty : 1 on 09/05/2022 by Alexis Crenshaw MD at [facility] [employer] [id number] 03/08/2023 [id number] / / documented as of this encounter Visit Diagnoses Diagnosis Thrombocytopenia (HCC) Thrombocytopenia, unspecified documented in this encounter Advance Directives Documents on File Type Date Recorded Patient Waste Transportation Technician Expl anation Advance Directives and Living Will [...] Advance Directives occurred with: Patient Care Teams Fiberglass Tube Molder Relationship Specialty Start Date End Date Jose Angel Weeks DO [address] [facility] [place] [address] PCP - General Internal Medicine 07/25/21 documented as of this encounter
--- OUTSIDE RECORDS SUMMARY | 2023-03-13 08:37 | External Medical Summary | Summary of Care ---
Author Name Unknown Organization [facility] Address [address] [place] [address] Phone [phone] Care Team Providers Care Linotype Operator Name Role Phone Micky Jose Angel Bazan DO Primary Care Provider [phone] Reason for Visit * Reason Onset Date Comments Advice 03/08/2023 Constantino Encounter Details Date Type Department Care Team (Late st Contact Info) Description 03/08/2023 Telephone Hematology/Oncology [facility] 200 [facility] [place] [address] Edmar Meeks MD 200 [facility] [place] [address] Advice (Constantino) Allergies Active Allergy Reactions Criticality Noted Date Comments Ibuprofen 12/12/2013 Aspirin 07/03/2021 Other reaction(s): CANNOT TAKE DUE TO GASTRITIS Valdecoxib 03/03/2013 General ill feeling Celecoxib Other (Please comment) 08/27/2017 halfway use caused heart-burn Codeine 12/12/2022 Other Reaction(s): [...] 10/22/2012 Active fluticasone (FLONASE) 50 MCG/ACT nasal sprayIndications:Fig Caprifier natalia rhinitis USE TWO SPRAYS IN EACH NOSTRIL ONCE DAILY 16 g 4 10/27/2014 Active Additional Information Patient taking differently: 1 [place] Nasal Daily(AM), Reported on 09/13/2022 Vitamin D3 [...] 10 g 1 05/18/2022 Active Nystatin-Triamcinolon e 593239-7.1 UNIT/GM-% External Cream (Mycolog)Indications: Chronic dermatitis APPLY [...] bioprosthesis 09/04/2022 Aortic ectasia 05/18/2022 Atherosclerosis of [place] co 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 angina pectoris 05/18/2022 [...] 09/12 BCC right upper back BCC left adventism History of compression fracture of spine 018 Overview: Winter , T10, L5 - traumatic 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 leg, recurrent Diastolic dysfunction 07/06/2016 Thrombocytopenia 06/05/2013 halfway current use of anticoagulant therapy 0 10/21/2012 [...] mRNA, LNP-s, No Pre serve, 2-Dose Series ([employer]) 08/02/2021,02/13/2021,07/28/2020,06/27 COVID-19, MRNA-LNP, 23-24, P F, 30 MCG/0.3 mL, 12 YRS AND ABOVE, IM ([employer]) 02/12/2023 Covid-19, Mrna, Lnp-s, Pf, B ivalent, [...] as of this encounter Miscellaneous Notes * Addendum Note - Aleksander River RN [...] AM EST Recvd a call from Olga Langford, REAL PROPERTY APPRAISER from [facility] Anesthesia. She states per Dr. Meeks recommendation [...] a return call at her direct line [phone] documented in this encounter Plan of Treatment Upcoming Encounters Date Type Department Care Team (Late st Contact Info) Description 04/10/2023 11:15 AM EST Office Visit Hematology/Oncology [facility] [address] [place] [address] Edmar Meeks MD 200 [facility] [place] [address] 06/04/2023 2:00 PM EST Office Visit Family Practice 65 [facility] [place] 293 [place] [address] Jose Angel Weeks, 293 [place] [address] 07/30/2023 10:40 AM EDT Office Visit Neurology [facility] 200 [facility] [place], [place] [address] Marquita Herrera PA-C 200 [facility] [place] [address] 10/28/2023 2:00 PM EDT Cardiac Studies Cardiac Studies, [facility] [address] 12/09/2023 2:15 PM EDT Office Visit Dermatology [facility] 200 [facility] [place], [place] [address] Jacky Arroyo MD 200 [facility] [place], [place] [address] Scheduled Orders Name Type Priority Associated Diagnoses [...] this encounter Medical Devices Implanted Type Area Filtering Machine Tender Device Identifier Shelf Expiration Date Model / Serial / Lot Cover [place] Hole 17mm 421.554 - [id number] Implanted:Qty : 1 on 04/20/2022 by Prudencio Sung III, [place] [facility] Left: Head SYNTHES MAXILLOFACIAL 421.554 / / Valve Tavr Jayson 29mm - [id number] Implanted:Qty : 1 on 09/05/2022 by Alexis Crenshaw MD at [facility] [employer] [id number] 03/08/2023 [id number] / / documented as of this encounter Visit Diagnoses Diagnosis Thrombocytopenia (HCC)- Primary Thrombocytopenia, unspecified documented in this encounter Advance Directives Documents on File Type Date Recorded Patient Healthcare Technician Expl anation Advance Directives and Living [...] Advance Directives occurred with: Patient Care Teams Linotype Operator Relationship Specialty Start Date End Date Jose Angel Weeks DO [address] [place] [address] PCP - General Internal Medicine 07/25/21 documented as of this encounter
--- OUTSIDE RECORDS SUMMARY | 2023-03-13 08:37 | External Medical Summary | Summary of Care ---
Author Name Unknown Organization [facility] Address [address] [place] [address] Phone [phone] Care Team Providers Care Bend Sorter Name Role Phone Micky Jose Angel Bazan DO Primary Care Provider [phone] Reason for Visit * Reason Onset Date Comments Advice 03/08/2023 Constantino Encounter Details Date Type Department Care Team (Late st Contact Info) Description 03/08/2023 Telephone Hematology/Oncology [facility] 200 [facility] [place] [address] Edmar Meeks MD 200 [facility] [place] [address] Advice (Constantino) Allergies Active Allergy Reactions Criticality Noted Date Comments Ibuprofen 12/12/2013 Aspirin 07/03/2021 Other reaction(s): CANNOT TAKE DUE TO GASTRITIS Valdecoxib 03/03/2013 General ill feeling Celecoxib Other (Please comment) 08/27/2017 [facility] use caused heart-burn Codeine 12/12/2022 Other Reaction(s): [...] 10/22/2012 Active fluticasone (FLONASE) 50 MCG/ACT nasal sprayIndications:Hazard Mitigation Officer natalia rhinitis USE TWO SPRAYS IN EACH NOSTRIL ONCE DAILY 16 g 4 10/27/2014 Active Additional Information Patient taking differently: 1 [place] Nasal Daily(AM), Reported on 09/13/2022 Vitamin D3 [...] 10 g 1 05/18/2022 Active Nystatin-Triamcinolon e 938855-1.1 UNIT/GM-% External Cream (Mycolog)Indications: Chronic dermatitis APPLY [...] bioprosthesis 09/04/2022 Aortic ectasia 05/18/2022 Atherosclerosis of [place] co 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 angina pectoris 05/18/2022 [...] 09/12 BCC right upper back BCC left orthodox History of compression fracture of spine 018 Overview: Winter , T10, L5 - traumatic 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 She states [...] a return call at her direct line [phone] documented in this encounter Plan of Treatment Upcoming Encounters Date Type Department Care Team (Late st Contact Info) Description 04/10/2023 11:15 AM EST Office [facility] [place] [address] [place] [address] Edmar Meeks MD [address] [place] [address] 06/04/2023 2:00 PM EST Office Visit Family Practice 65 [facility] [place] 293 [facility] [address] Jose Angel Weeks, DO [facility] [address] 07/30/2023 10:40 AM EDT Office Visit Neurology [facility] 200 [facility] [place] [address] Marquita Herrera PA-C 200 [facility] [place] [address] 10/28/2023 2:00 PM EDT Cardiac Studies Cardiac Studies, [facility] 132 [facility] [place] [address] 12/09/2023 2:15 PM EDT Office Visit Dermatology [facility] 200 [facility] [place] [address] Jacky Arroyo MD 200 [facility] [place] [address] Scheduled Procedures Name Priority Associated Diagnoses Date/Ti [...] this encounter Medical Devices Implanted Type Area Commercial Production Editor Device Identifier Shelf Expiration Date Model / Serial / Lot Cover [place] Hole 17mm 421.554 - [id number] Implanted:Qty : 1 on 04/20/2022 by Prudencio Sung III, [place] [facility] Left: Head SYNTHES MAXILLOFACIAL 421.554 / / Valve Tavr Jayson 29mm - [id number] Implanted:Qty : 1 on 09/05/2022 by Alexis Crenshaw MD at [facility] [employer] [id number] 03/08/2023 [id number] / / documented as of this encounter Advance Directives Documents on File Type Date Recorded Patient Procurement Professional Logistics Expl anation Advance Directives and Living Will [...] Advance Directives occurred with: Patient Care Teams Bend Sorter Relationship Specialty Start Date End Date Jose Angel Weeks DO [address] [place] [address] PCP - General Internal Medicine 07/25/21 documented as of this encounter
--- OUTSIDE RECORDS SUMMARY | 2023-03-13 08:37 | External Medical Summary ---
Author Name Unknown Address Unknown Organization K09:[facility] [place] [place] [address] Laboratory Report Ordering Provider Test Date Status LEW JARQUIN 03/08/2023 13:45:53 Final Observation Date Value Abnormality Reference (Units ) Status WBC, Total 03/08/2023 13:45:53 4.82 4.00-10.8 0 (K/uL) Final RBC 03/08/2023 13:45:53 3.77 4.50-5.25 (M/uL) Final Hemoglobin 03/08/2023 13:45:53 13.0 Below low normal 14 .0-16.8 (g/dL) Final HCT 03/08/2023 13:45:53 39.6 Below low normal 40. 0-48.4 (%) Final MCV 03/08/2023 13:45:53 105.0 82.0-99.5 (fL) Final MCH 03/08/2023 13:45:53 34.5 27.0-34.0 (pg) Final MCHC 03/08/2023 13:45:53 32.8 32.0-36.0 (g/dL) Final RDW 03/08/2023 13:45:53 11.7 11.5-15.5 (%) Final Platelets 03/08/2023 13:45:53 85 Below low normal 140 -400 (K/uL) Final MPV 03/08/2023 13:45:53 9.3 6.6-11.1 ( fL) Final Performing Location [facility] [place] [place] [address]
--- OUTSIDE RECORDS SUMMARY | 2023-03-13 08:38 | External Medical Summary | Summary of Care ---
Author Name Unknown Organization [facility] Address [address] [place] [address] Phone [phone] Care Team Providers Care Equipment Oiler Name Role Phone Micky Jose Angel Bazan DO Primary Care Provider Reason for Visit * Reason Onset Date Comments Information 02/18/2023 Encounter Details Date Type Department Care Team (Late st Contact Info) Description 02/18/2023 Telephone Hematology/Oncology Treatment, [place] [address] [facility] [address] Edmar Meeks MD 200 [place] [address] Information Allergies Active Allergy Reactions Criticality Noted Date Comments Ibuprofen 12/12/2013 Aspirin 07/03/2021 Other reaction(s): CANNOT TAKE DUE TO GASTRITIS Valdecoxib 03/03/2013 General ill feeling Celecoxib Other (Please comment) 08/27/2017 retirement use caused heart-burn Codeine 12/12/2022 Other Reaction(s): [...] as of this encounter (statuses as of 03/04/2023) Medications Medication Sig Dispensed Refills Start Date End Date Status ALAVERT [address] one pill on tongue once daily as needed for allergies 30 Tab 5 10/21/2012 Active VITAMIN B-12 500 MCG PO TABSIndications: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 0 10/22/2012 Active fluticasone (FLONASE) 50 MCG/ACT nasal sprayIndications:Photographic Restorer natalia rhinitis USE TWO SPRAYS IN EACH NOSTRIL ONCE DAILY 16 g 4 10/27/2014 Active Additional Information Patient taking differently: 1 [place] Nasal Daily(AM), Reported on 09/13/2022 Vitamin D3 [...] 10 g 1 05/18/2022 Active Nystatin-Triamcinolon e 707741-9.1 UNIT/GM-% External Cream (Mycolog)Indications: Chronic dermatitis APPLY [...] as of this encounter (statuses as of 03/04/2023) Active Problems Problem Noted Date Diagnosed Date Paroxysmal atrial fibrillation 01/29/2023 Obstructive sleep apnea of adult 01/29/2023 Status post transcatheter ao rtic valve replacement (TAVR) using bioprosthesis 09/04/2022 Aortic ectasia 05/18/2022 Atherosclerosis of [place] co 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 angina pectoris 05/18/2022 [...] 09/12 BCC right upper back BCC left jainism History of compression fracture of spine 018 Overview: Winter , T10, L5 - traumatic 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 leg, recurrent Diastolic dysfunction 07/06/2016 Thrombocytopenia 06/05/2013 retirement current use of anticoagulant therapy 0 10/21/2012 Overview: ICD-10 update of inactive term Insomnia Chronic rhinitis documented as of this encounter (statuses as of 03/04/2023) Resolved Problems Problem Noted Date Diagnosed Date [...] as of this encounter (statuses as of 03/04/2023) Immunizations Name Administration Dates Next Due COVID-19 mRNA, LNP-s, No Pre serve, 2-Dose Series ([place]) 08/02/2021,02/13/2021,07/28/2020,06/27 COVID-19, MRNA-LNP, 23-24, P F, 30 MCG/0.3 mL, 12 YRS AND ABOVE, IM ([facility]) 02/12/2023 Covid-19, Mrna, Lnp-s, Pf, B ivalent, [...] encounter Miscellaneous Notes * Telephone Encounter - Ary River RN - 03/04/2023 9:33 AM EST Per other encounter, preanesthesia testing called back: " reviewed labs from 12/28 but did not advise if it ok for pt to have the surgery. Please fax over medical clearance or [facility] and they can retrieve. Pt needs clearance for Left total shoulder reversal." Dr Meeks: they would like you to specifically state if it is ok for the patient to have the surgery. If lab work is repeated a few days prior, at what point would you recommend they give patient a platelet transfusion prior? Thanks! * Telephone Encounter - Ary River RN - 03/04/2023 8:20 AM EST Faxed this encounter. * Telephone Encounter - Edmar Meeks MD - 03/02/2023 9:59 AM EDT Last Platelet count was around 85,000 as of 02/27/2023. Based on that number and previous numbers which had remained 70,000 and above, he can have a shoulder surgery and the does not require prophylactic Platelet transfusion I would still consider getting another CBCD about 3 days before the surgery and will decide whetherhe needs any prophylactic Platelet transfusion at that time. * Telephone Encounter - Ary River RN - 02/18/2023 10:24 AM EDT Received fax from [facility] pre-anesthesia testing. Patient is scheduled for left reverse total shoulderreplacement with Dr Moore 03/11/23. Per fax, "Patient had pre-admission appointment 02/11/23. Pre-operative labs demonstrate platelet count was 87,000 which is improved since 11/2022 to chart review. Given current platelet shortage, please advise if patient is optimized for surgery and if anything additional is needed prior to surgeryfrom a hematologic standpoint. Thank you" Dr Meeks's response can be faxed to Pre-admission testing [phone]. Dr Meeks: please advise on labs/ surgery. Thanks! documented in this encounter Plan of Treatment Upcoming Encounters Date Type Department Care Team (Late st Contact Info) Description 04/10/2023 11:15 AM EST Office Visit Hematology/Oncology [facility] 200 [facility] [place] [address] Edmar Meeks MD 200 [facility] [place] [address] 06/04/2023 2:00 PM EST Office Visit Family Practice [address] [place] [address] [facility] [address] Jose Angel Weeks, 293 [facility] [address] 07/30/2023 10:40 AM EDT Office Visit Neurology [facility] [place] 200 [facility] [place] [address] Marquita Herrera PA-C 200 [facility] [place] [address] 10/28/2023 2:00 PM EDT Cardiac Studies Cardiac Studies, [facility] 132 [facility] [place] [address] 12/09/2023 2:15 PM EDT Office Visit Dermatology [place] 200 [facility] [place] [address] Jacky Arroyo MD 200 [facility] [place] [address] Scheduled Procedures Name Priority Associated Diagnoses Date/Ti [...] this encounter Medical Devices Implanted Type Area Domestic Travel Consultant Device Identifier Shelf Expiration Date Model / Serial / Lot Cover [place] Hole 17mm 421.554 - [id number] Implanted:Qty : 1 on 04/20/2022 by Prudencio Sung III, MD [place] [facility] [place]: Head SYNTHES MAXILLOFACIAL 421.554 / / Valve Tavr Jayson 29mm - [id number] Implanted:Qty : 1 on 09/05/2022 by Aelxis Crenshaw MD at [facility] [place] [employer] [id number] 03/08/2023 [id number] / / documented as of this encounter Advance Directives Documents on File Type Date Recorded Patient Dinkey Brakeman Expl anation Advance Directives and Living Will [...] Advance Directives occurred with: Patient Care Teams Equipment Oiler Relationship Specialty Start Date End Date Jose Angel Weeks DO [address] [place] [address] PCP - General Internal Medicine 07/25/21 documented as of this encounter
--- OUTSIDE RECORDS SUMMARY | 2023-03-13 08:38 | External Medical Summary | Summary of Care ---
Author Name Unknown Organization [facility] Address [address] [place] [address] Phone [phone] Care Team Providers Care Medical Technical Writer Name Role Phone Micky Jose Angel aBzan DO Primary Care Provider [phone] Encounter Details Date Type Department Care Team (Late st Contact Info) Description 03/04/2023 [facility] [address] [place] [phone] Ania Arzate, RN [address] [place] [address] Medical home patient encounter* Allergies Active Allergy Reactions Criticality Noted Date Comments Ibuprofen 12/12/2013 Aspirin 07/03/2021 Other reaction(s): CANNOT TAKE DUE TO GASTRITIS Valdecoxib 03/03/2013 General ill feeling Celecoxib Other (Please comment) 08/27/2017 alf use caused heart-burn Codeine 12/12/2022 Other Reaction(s): [...] 10/22/2012 Active fluticasone (FLONASE) 50 MCG/ACT nasal sprayIndications:Drum Sealer natalia rhinitis USE TWO SPRAYS IN EACH NOSTRIL ONCE DAILY 16 g 4 10/27/2014 Active Additional Information Patient taking differently: 1 [place] Nasal Daily(AM), Reported on 09/13/2022 Vitamin D3 [...] 10 g 1 05/18/2022 Active Nystatin-Triamcinolon e 273995-5.1 UNIT/GM-% External Cream (Mycolog)Indications: Chronic dermatitis APPLY [...] bioprosthesis 09/04/2022 Aortic ectasia 05/18/2022 Atherosclerosis of [place] co 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 angina pectoris 05/18/2022 [...] 09/12 BCC right upper back BCC left buddhist History of compression fracture of spine 018 Overview: Winter , T10, L5 - traumatic 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 leg, recurrent Diastolic dysfunction 07/06/2016 Thrombocytopenia 06/05/2013 alf current use of anticoagulant therapy 0 10/21/2012 [...] mRNA, LNP-s, No Pre serve, 2-Dose Series ([employer]) 08/02/2021,02/13/2021,07/28/2020,06/27 COVID-19, MRNA-LNP, 23-24, P F, 30 MCG/0.3 mL, 12 YRS AND ABOVE, IM (Ryan-Comirnat) 02/12/2023 Covid-19, Mrna, Lnp-s, Pf, B ivalent, [...] No 09/04/2022 documented as of this encounter Progress Notes * Ania Arzate RN - 03/04/2023 11:49 AM EST Warehouse Packaging Supervisor Progress Note: Date: 03/04/23 Assigned Patient Tier: 3 Connected with patient via telephone. Verified patient name/. Advised patient that call is beingrecorded for quality and training purposes. Assessment: Pt. noted the following: Goal review. Pt schedule for shoulder surgery on 03/11. Saw PCP and cardiology for pre-op clearance. Pt is stop eliquis 3 days prior to surgery. No needs at this time. Will follow up after d/c. Did you receive an alert for an annual wellness visit? No Is this call for a hospital, fdc or rehab facility discharge to home? No Medication Reconciliation: Medication Reconciliation completed: no Review of Current goals: Discussed the following patient-centered CM goals with the patient during this discussion: -SAFETY: Prevent falls or injuries -Status: On Track schedule for shoulder surgery-no recent falls. -HEART FAILURE: Achieve successful management of heart failure. -Status: On Track . COPD Patient: No CHF Patient: YES Reinforced fluid restriction and low sodium diet. CM Plan: Reviewed 3 Red Flags with patient. Advised to call CM with any of the following: Red Flag 1: falls or injury, Red Flag 2: fevers or chills, or Red Flag 3: weakness or dizziness Remote Patient Monitoring: At this time, RPM not offered/considered for patient due to NA. Plan for Future Contacts: Plan to follow up after sugery to check progress on the following goals/needs healthcare needs. Planned contacts from the following parties will occur this week: N/A as additional contacts per workflow. Advancement/Closure Plan: Keep patient at current Tier with reassessment per workflow. Patient provided CM contact information and encouraged to call with any changes in condition. SNP Member? No PCP Notified of enrollment in CM/HM program: Yes Is Provider in agreement with POC? Yes Ania Arzate RN Outpatient Case Management documented in this encounter Plan of Treatment Upcoming Encounters Date Type Department Care Team (Late st Contact Info) Description 04/10/2023 11:15 AM EST Office Visit Hematology/Oncology [facility] [address] [facility] [place] [address] Edmar Meeks MD 200 [facility] [place] [address] 06/04/2023 2:00 PM EST Office Visit Family Practice [address] [place] [address] 293 [place] [address] Jose Angel Weeks DO 293 [place] [address] 07/30/2023 10:40 AM EDT Office Visit Neurology [facility] [address] [facility] [place] [address] Marquiat Herrera PA-C [address] [facility] [place] [address] 10/28/2023 2:00 PM EDT Cardiac Studies Cardiac Studies, [facility] [address] [facility] [place] [address] 12/09/2023 2:15 PM EDT Office Visit Dermatology [facility] [address] [facility] [place] [address] Jacky Arroyo MD [address] [facility] [place] [address] Scheduled Procedures Name Priority Associated Diagnoses Date/Ti [...] this encounter Medical Devices Implanted Type Area Photoengraving Supervisor Device Identifier Shelf Expiration Date Model / Serial / Lot Cover [place] 17mm 421.554 - [id number] Implanted:Qty : 1 on 04/20/2022 by Prudencio Sung III, MD at OR [facility] Left: Head SYNTHES MAXILLOFACIAL 421.554 / / Valve Tavr Jayson 29mm - [id number] Implanted:Qty : 1 on 09/05/2022 by Alexis Crenshaw MD at CARDIAC LABS [facility] [employer] [id number] 03/08/2023 [id number] / / documented as of this encounter Visit Diagnoses Diagnosis Medical home patient encounter- Primary Other specified examination documented in this encounter Advance Directives Documents on File Type Date Recorded Patient Refrigeration Systems Installer Expl anation Advance Directives and Living Will [...] Advance Directives occurred with: Patient Care Teams Medical Technical Writer Relationship Specialty Start Date End Date Jose Angel Weeks DO [address] [place] [address] PCP - General Internal Medicine 07/25/21 documented as of this encounter
--- OUTSIDE RECORDS SUMMARY | 2023-03-13 08:38 | External Medical Summary | Summary of Care ---
Author Name Unknown Organization [facility] Address [address] [place] [address] Phone [phone] Care Team Providers Care Marine Electrician Name Role Phone Micky Jose Angel Bazan DO Primary Care Provider [phone] Reason for Visit * Reason Onset Date Comments Information 02/18/2023 Encounter Details Date Type Department Care Team (Late st Contact Info) Description 02/18/2023 Telephone Hematology/Oncology Treatment, [place] [address] [facility] [address] Edmar Meeks MD [address] [place] [address] Information Allergies Active Allergy Reactions Criticality Noted Date Comments Ibuprofen 12/12/2013 Aspirin 07/03/2021 Other reaction(s): CANNOT TAKE DUE TO GASTRITIS Valdecoxib 03/03/2013 General ill feeling Celecoxib Other (Please comment) 08/27/2017 long-term use caused heart-burn Codeine 12/12/2022 Other Reaction(s): [...] 10/22/2012 Active fluticasone (FLONASE) 50 MCG/ACT nasal sprayIndications:Staff Technologist natalia rhinitis USE TWO SPRAYS IN EACH NOSTRIL ONCE DAILY 16 g 4 10/27/2014 Active Additional Information Patient taking differently: 1 [place] Nasal Daily(AM), Reported on 09/13/2022 Vitamin D3 [...] 10 g 1 05/18/2022 Active Nystatin-Triamcinolon e 569713-8.1 UNIT/GM-% External Cream (Mycolog)Indications: Chronic dermatitis APPLY [...] bioprosthesis 09/04/2022 Aortic ectasia 05/18/2022 Atherosclerosis of [place] co 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 angina pectoris 05/18/2022 [...] 09/12 BCC right upper back BCC left cheondoism History of compression fracture of spine 018 Overview: Winter , T10, L5 - traumatic 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 * Telephone Encounter - Edmar Meeks MD - 03/04/2023 10:54 AM EST - Okay to have surgery based on platelet count of 85,000 as of 02/27/2023. - We should get CBCD 3 days before the schedule surgery. If the platelet count is less than 50,000,we should consider for platelet transfusion. * Telephone Encounter - Ary River RN - 03/04/2023 9:33 AM EST Per other encounter, preanesthesia testing called back: " reviewed labs from 12/28 but did not advise if it ok for pt to have the surgery. Please fax over medical clearance or place in [facility] and they can retrieve. Pt needs [...] 02/18/2023 10:24 AM EDT Received fax from [facility] pre-anesthesia testing. Patient is scheduled for left [...] response can be faxed to Pre-admission testing [phone]. Dr Meeks: please advise on labs/ surgery. Thanks! documented in this encounter Plan of Treatment Upcoming Encounters Date Type Department Care Team (Late st Contact Info) Description 04/10/2023 11:15 AM EST Office Visit Hematology/Oncology [facility] [address] [place] [address] Edmar Meeks MD [address] [place] [address] 06/04/2023 2:00 PM EST Office Visit Family Practice [address], [place] 293 [place] [address] Jose Angel Weeks DO 293 [place] [address] 07/30/2023 10:40 AM EDT Office Visit Neurology [facility] 200 [facility] [place] [address] Marquita Herrera PA-C 200 [facility] [place] [address] 10/28/2023 2:00 PM EDT Cardiac Studies Cardiac Studies, [facility] [address] [facility] [place] [address] 12/09/2023 2:15 PM EDT Office Visit Dermatology [facility] 200 [facility] [place] [address] Jacky Arroyo MD 200 [facility] [place] [address] Scheduled Procedures Name Priority Associated Diagnoses Date/Ti [...] Completed 03/15/2015, 10/22/2011 Zoster Vaccines Completed 06/27/2018, 1109/2017, 09/19/2017, Additional history exists COLONOSCOPY-EVERY 3 YRS [...] this encounter Medical Devices Implanted Type Area Tax Director Device Identifier Shelf Expiration Date Model / Serial / Lot Cover [place] 17mm 421.554 - [id number] Implanted:Qty : 1 on 04/20/2022 by Prudencio Sung III, MD at OR [facility] [place] Left: Head SYNTHES MAXILLOFACIAL 421.554 / / Valve Tavr Jayson 29mm - [id number] Implanted:Qty : 1 on 09/05/2022 by Alexis Crenshaw MD at CARDIAC LABS [facility] [employer] [id number] 03/08/2023 [id number] / / documented as of this encounter Advance Directives Documents on File Type Date Recorded Patient Trustee Of Estate Expl anation Advance Directives and Living Will [...] Advance Directives occurred with: Patient Care Teams Marine Electrician Relationship Specialty Start Date End Date Jose Angel Weeks DO 293 [facility] [address] PCP - General Internal Medicine 07/25/21 documented as of this encounter
--- OUTSIDE RECORDS SUMMARY | 2023-03-13 08:38 | External Medical Summary | Summary of Care ---
Author Name Unknown Organization [facility] Address [address] [place] [address] Phone [phone] Care Team Providers Care Vpk Teacher Name Role Phone Micky Jose Angel Bazan DO Primary Care Provider [phone] Reason for Visit * Reason Onset Date Comments Information 02/18/2023 Encounter Details Date Type Department Care Team (Late st Contact Info) Description 02/18/2023 Telephone Hematology/Oncology Treatment, [place] [address] [facility] [address] [place] [address] Edmar Meeks MD 200 [place] [address] Information Allergies Active Allergy Reactions Criticality Noted Date Comments Ibuprofen 12/12/2013 Aspirin 07/03/2021 Other reaction(s): CANNOT TAKE DUE TO GASTRITIS Valdecoxib 03/03/2013 General ill feeling Celecoxib Other (Please comment) 08/27/2017 USP use caused heart-burn Codeine 12/12/2022 Other Reaction(s): [...] 10/22/2012 Active fluticasone (FLONASE) 50 MCG/ACT nasal sprayIndications:Burr Mill Operator natalia rhinitis USE TWO SPRAYS IN EACH NOSTRIL ONCE DAILY 16 g 4 10/27/2014 Active Additional Information Patient taking differently: 1 [place] Nasal Daily(AM), Reported on 09/13/2022 Vitamin D3 [...] 10 g 1 05/18/2022 Active Nystatin-Triamcinolon e 423558-0.1 UNIT/GM-% External Cream (Mycolog)Indications: Chronic dermatitis APPLY [...] bioprosthesis 09/04/2022 Aortic ectasia 05/18/2022 Atherosclerosis of [place] co 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 angina pectoris 05/18/2022 [...] 09/12 BCC right upper back BCC left orthodoxy History of compression fracture of spine 018 Overview: Winter , T10, L5 - traumatic 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 Pt needs [...] 02/18/2023 10:24 AM EDT Received fax from [facility] pre-anesthesia testing. Patient is scheduled [...] response can be faxed to Pre-admission testing [phone]. Dr Meeks: please advise on labs/ surgery. Thanks! documented in this encounter Plan of Treatment Upcoming Encounters Date Type Department Care Team (Late st Contact Info) Description 04/10/2023 11:15 AM EST Office Visit Hematology/Oncology [facility] [place] [address] [facility] [place] [address] Edmar Meeks MD [address] [place] [address] 06/04/2023 2:00 PM EST Office Visit Family Practice [address] [place] [address] 293 [facility] [address] Jose Angel Weeks, 293 [facility] [address] 07/30/2023 10:40 AM EDT Office Visit Neurology [facility] [address] [facility] [place] [address] Marquita Herrera PA-C [address] [facility] [place] [place] [address] 10/28/2023 2:00 PM EDT Cardiac Studies Cardiac Studies, [facility] [address] [facility] [place] [address] 12/09/2023 2:15 PM EDT Office Visit Dermatology [facility] [address] [facility] [place] [address] Jacky Arroyo MD [address] [facility] [place] [address] Scheduled Procedures Name Priority Associated Diagnoses Date/Ti [...] this encounter Medical Devices Implanted Type Area Child Center Assistant Device Identifier Shelf Expiration Date Model / Serial / Lot Cover [place] 17mm 421.554 - [id number] Implanted:Qty : 1 on 04/20/2022 by Prudencio Sung III, MD at OR [facility] Left: Head SYNTHES MAXILLOFACIAL 421.554 / / Valve Tavr Jayson 29mm - [id number] Implanted:Qty : 1 on 09/05/2022 by Alexis Crenshaw MD at CARDIAC LABS [facility] [employer] [id number] 03/08/2023 [id number] / / documented as of this encounter Advance Directives Documents on File Type Date Recorded Patient Dispensary Clerk Expl anation Advance Directives and Living Will [...] Advance Directives occurred with: Patient Care Teams Vpk Teacher Relationship Specialty Start Date End Date Jose Angel Weeks DO 293 [place] [address] PCP - General Internal Medicine 07/25/21 documented as of this encounter
--- OUTSIDE RECORDS SUMMARY | 2023-03-13 08:39 | External Medical Summary | Summary of Care ---
Author Name Unknown Organization [facility] Address [address] [place] [address] Phone [phone] Care Team Providers Care Fish And Wildlife Technician Name Role Phone Micky Jose Angel Bazan DO Primary Care Provider Reason for Visit * Reason Onset Date Comments Information 02/18/2023 Encounter Details Date Type Department Care Team (Late st Contact Info) Description 02/18/2023 Telephone Hematology/Oncology Treatment, [place] [address] [place] [address] Edmar Meeks MD 200 [place] [address] Information Allergies Active Allergy Reactions Criticality Noted Date Comments Ibuprofen 12/12/2013 Aspirin 07/03/2021 Other reaction(s): CANNOT TAKE DUE TO GASTRITIS Valdecoxib 03/03/2013 General ill feeling Celecoxib Other (Please comment) 08/27/2017 nursing home use caused heart-burn Codeine 12/12/2022 Other Reaction(s): [...] as of this encounter (statuses as of 02/28/2023) Medications Medication Sig Dispensed Refills Start Date End Date Status ALAVERT [address] one pill on tongue once daily as needed for allergies 30 Tab 5 10/21/2012 Active VITAMIN B-12 500 MCG PO TABSIndications: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 0 10/22/2012 Active fluticasone (FLONASE) 50 MCG/ACT nasal sprayIndications:Chartered Financial Analyst natalia rhinitis USE TWO SPRAYS IN EACH NOSTRIL ONCE DAILY 16 g 4 10/27/2014 Active Additional Information Patient taking differently: 1 [place] Nasal Daily(AM), Reported on 09/13/2022 Vitamin D3 [...] 10 g 1 05/18/2022 Active Nystatin-Triamcinolon e 473298-3.1 UNIT/GM-% External Cream (Mycolog)Indications: Chronic dermatitis APPLY [...] as of this encounter (statuses as of 02/28/2023) Active Problems Problem Noted Date Diagnosed Date Paroxysmal atrial fibrillation 01/29/2023 Obstructive sleep apnea of adult 01/29/2023 Status post transcatheter ao rtic valve replacement (TAVR) using bioprosthesis 09/04/2022 Aortic ectasia 05/18/2022 Atherosclerosis of [place] co 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 angina pectoris 05/18/2022 [...] 09/12 BCC right upper back BCC left catholic History of compression fracture of spine 018 Overview: Winter , T10, L5 - traumatic 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 leg, recurrent Diastolic dysfunction 07/06/2016 Thrombocytopenia 06/05/2013 nursing home current use of anticoagulant therapy 0 10/21/2012 Overview: ICD-10 update of inactive term Insomnia Chronic rhinitis documented as of this encounter (statuses as of 02/28/2023) Resolved Problems Problem Noted Date Diagnosed Date [...] as of this encounter (statuses as of 02/28/2023) Immunizations Name Administration Dates Next Due COVID-19 mRNA, LNP-s, No Pre serve, 2-Dose Series ([employer]) 08/02/2021,02/13/2021,07/28/2020,06/27 COVID-19, MRNA-LNP, 23-24, P F, 30 MCG/0.3 mL, 12 YRS AND ABOVE, IM ([facility]) 02/12/2023 Covid-19, Mrna, Lnp-s, Pf, [...] 02/18/2023 10:24 AM EDT Received fax from [facility] pre-anesthesia testing. Patient is scheduled for left [...] response can be faxed to Pre-admission testing [phone]. Dr Meeks: please advise on labs/ surgery. Thanks! documented in this encounter Plan of Treatment Upcoming Encounters Date Type Department Care Team (Late st Contact Info) Description 04/10/2023 11:15 AM EST Office Visit Hematology/Oncology [facility] [place] [address] [facility] [place] [address] Edmar Meeks MD 200 [place] [address] 06/04/2023 2:00 PM EST Office Visit Family Practice [address], [place] [facility] [address] Jose Angel Weeks, [address] [facility] [address] 07/30/2023 10:40 AM EDT Office Visit Neurology [facility] [address] [facility] [place] [address] Marquita Herrera PA-C [address] [place] [address] 10/28/2023 2:00 PM EDT Cardiac Studies [facility] Studies, [facility] [place] [address] 12/09/2023 2:15 PM EDT Office Visit Dermatology [facility] [address] [facility] [place] [address] Jacky Arroyo MD [address] [place] [address] Scheduled Procedures Name Priority Associated Diagnoses Date/Ti [...] this encounter Medical Devices Implanted Type Area Ammunition Storage Superintendent Device Identifier Shelf Expiration Date Model / Serial / Lot Cover [place] 17mm 421.554 - [id number] Implanted:Qty : 1 on 04/20/2022 by Prudencio Sung III, MD at [place] [facility] Left: Head SYNTHES MAXILLOFACIAL 421.554 / / Valve Tavr Jayson 29mm - [id number] Implanted:Qty : 1 on 09/05/2022 by Alexis Crenshaw MD at [facility] [employer] [id number] 03/08/2023 [id number] / / documented as of this encounter Advance Directives Documents on File Type Date Recorded Patient Talent Coordinator Expl anation Advance Directives and Living Will [...] Advance Directives occurred with: Patient Care Teams Fish And Wildlife Technician Relationship Specialty Start Date End Date Jose Angel Weeks DO [address] [place] [address] PCP - General Internal Medicine 07/25/21 documented as of this encounter
--- OUTSIDE RECORDS SUMMARY | 2023-03-13 08:39 | External Medical Summary | Summary of Care ---
Author Name Unknown Organization [facility] Address [address] [place] [address] Phone [phone] Care Team Providers Care Toll Line Repairer Name Role Phone Micky Jose Angel Bazan DO Primary Care Provider [phone] Reason for Visit * Reason Onset Date Comments Information 02/18/2023 Encounter Details Date Type Department Care Team (Late st Contact Info) Description 02/18/2023 Telephone Hematology/Oncology Treatment, [place] [address] [place] [address] Edmar Meeks MD [address] [place] [address] Information Allergies Active Allergy Reactions Criticality Noted [...] 10/22/2012 Active fluticasone (FLONASE) 50 MCG/ACT nasal sprayIndications:Imaging Assistant natalia rhinitis USE TWO SPRAYS IN EACH NOSTRIL ONCE DAILY 16 g 4 10/27/2014 Active Additional Information Patient taking differently: 1 [place] Nasal Daily(AM), Reported on 09/13/2022 Vitamin D3 [...] 10 g 1 05/18/2022 Active Nystatin-Triamcinolon e 598814-8.1 UNIT/GM-% External Cream (Mycolog)Indications: Chronic dermatitis APPLY [...] bioprosthesis 09/04/2022 Aortic ectasia 05/18/2022 Atherosclerosis of [place] co 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 angina pectoris 05/18/2022 [...] 09/12 BCC right upper back BCC left baptism History of compression fracture of spine 018 [...] mRNA, LNP-s, No Pre serve, 2-Dose Series ([employer]) 08/02/2021,02/13/2021,07/28/2020,06/27 COVID-19, MRNA-LNP, 23-24, P F, 30 MCG/0.3 mL, 12 YRS AND ABOVE, IM ([employer]-Comircounts include [facility]) 02/12/2023 Covid-19, Mrna, Lnp-s, Pf, B [...] 02/18/2023 10:24 AM EDT Received fax from [facility] pre-anesthesia testing. Patient is scheduled for [...] response can be faxed to Pre-admission testing [phone]. Dr Meeks: please advise on labs/ surgery. Thanks! documented in this encounter Plan of Treatment Upcoming Encounters Date Type Department Care Team (Late st Contact Info) Description 04/10/2023 11:15 AM EST Office Visit Hematology/Oncology [facility] [address] [place] [address] Edmar Meeks MD [address] [facility] [place] [address] 06/04/2023 2:00 PM EST Office Visit Family Practice [facility] [address] [place] [phone] Jose Angel Weeks DO 293 [facility], [place] [address] 07/30/2023 10:40 AM EDT Office Visit Neurology [facility] [address] [place] [address] Marquita Herrera PA-C [address] [facility] [place] [address] 10/28/2023 2:00 PM EDT Cardiac Studies Cardiac Studies, [facility] [address] [facility] [place] [address] 12/09/2023 2:15 PM EDT Office Visit Dermatology [facility] [address] [place] [address] Jacky Arroyo MD [address] [facility] [place] [address] Scheduled Procedures Name Priority Associated Diagnoses Date/Ti [...] this encounter Medical Devices Implanted Type Area Online Marketing Manager Device Identifier Shelf Expiration Date Model / Serial / Lot Cover Adilene Hole 17mm 421.554 - [id number] Implanted:Qty : 1 on 04/20/2022 by Prudencio Sung III[place] [facility] [place] Head SYNTHES MAXILLOFACIAL 421.554 / / Valve Tavr Jayson 29mm - [id number] Implanted:Qty : 1 on 09/05/2022 by Alexis Crenshaw MD [place] [facility] [place] [employer] [id number] 03/08/2023 [id number] / / documented as of this encounter Advance Directives Documents on File Type Date Recorded Patient Bag Filler Machine Operator Expl anation Advance Directives and Living Will [...] Advance Directives occurred with: Patient Care Teams Toll Line Repairer Relationship Specialty Start Date End Date Jose Angel Weeks DO [address] [place] [address] PCP - General Internal Medicine 07/25/21 documented as of this encounter
--- OUTSIDE RECORDS SUMMARY | 2023-03-13 08:39 | External Medical Summary | Summary of Care ---
Author Name Unknown Organization [facility] Address [address] [place] [address] Phone [phone] Care Team Providers Care Commercial Artist Lettering Name Role Phone Jose Angel Weeks DO Primary Care Provider [phone] Reason for Visit * Reason Comments Outpatient Testing Encounter Details Date Type Department Care Team (Latest Contact Info) Description 02/27/2023 11:40 AM EDT Laboratory Laboratory [facility] [address] [place] [phone] [facility] [address] [facility] [place] [address] Thrombocytopenia (HCC); Chronic hyponatremia; Low serum sodium Allergies Active Allergy Reactions Criticality Noted Date Comments Ibuprofen 12/12/2013 Aspirin 07/03/2021 Other reaction(s): CANNOT TAKE DUE TO GASTRITIS Valdecoxib 03/03/2013 General ill feeling Celecoxib Other (Please comment) 08/27/2017 moth exterminator use caused heart-burn Codeine 12/12/2022 Other Reaction(s): [...] as of this encounter (statuses as of 02/27/2023) Medications Medication Sig Dispensed Refills Start Date End Date Status ALAVERT [address] one pill on tongue once daily as needed for allergies 30 Tab 5 10/21/2012 Active VITAMIN B-12 500 MCG PO TABSIndications: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 0 10/22/2012 Active fluticasone (FLONASE) 50 MCG/ACT nasal sprayIndications:Accounts Specialist natalia rhinitis USE TWO SPRAYS IN EACH NOSTRIL ONCE DAILY 16 g 4 10/27/2014 Active Additional Information Patient taking differently: 1 [place] Nasal Daily(AM), Reported on 09/13/2022 Vitamin D3 [...] 10 g 1 05/18/2022 Active Nystatin-Triamcinolon e 337626-4.1 UNIT/GM-% External Cream (Mycolog)Indications: Chronic dermatitis APPLY [...] as of this encounter (statuses as of 02/27/2023) Active Problems Problem Noted Date Diagnosed Date Paroxysmal atrial fibrillation 01/29/2023 Obstructive sleep apnea of adult 01/29/2023 Status post transcatheter ao rtic valve replacement (TAVR) using bioprosthesis 09/04/2022 Aortic ectasia 05/18/2022 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 05/18/2022 [...] 09/12 BCC right upper back BCC left denominational History of compression fracture of spine 018 Overview: Winter , T10, L5 - traumatic 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 leg, recurrent Diastolic dysfunction 07/06/2016 Thrombocytopenia 06/05/2013 custodial current use of anticoagulant therapy 0 10/21/2012 Overview: ICD-10 update of inactive term Insomnia Chronic rhinitis documented as of this encounter (statuses as of 02/27/2023) Resolved Problems Problem Noted Date Diagnosed Date [...] as of this encounter (statuses as of 02/27/2023) Immunizations Name Administration Dates Next Due COVID-19 mRNA, LNP-s, No Pre serve, 2-Dose Series (ARI) 08/02/2021,02/13/2021,07/28/2020,06/27 COVID-19, MRNA-LNP, 23-24, P F, 30 MCG/0.3 mL, 12 YRS AND ABOVE, IM ([employer]-Comirnat) 02/12/2023 Covid-19, Mrna, Lnp-s, Pf, B ivalent, [...] 04/10/2023 11:15 AM EST Office Visit Hematology/Oncology [facility] [address] [place] [address] Edmar Meeks MD [address] [place] [address] 06/04/2023 2:00 PM EST Office Visit Family Practice [address] [place] [address] [facility] [place] [address] Jose Angel Weeks, [facility] [address] 07/30/2023 10:40 AM EDT Office Visit Neurology [facility] [address] [place] [address] Marquita Herrera PA-C [address] [place] [address] 10/28/2023 2:00 PM EDT Cardiac Studies Cardiac Studies, [facility] 132 [facility] [place] [address] 12/09/2023 2:15 PM EDT Office Visit Dermatology [facility] [address] [place] [address] Jacky Arroyo MD [address] [place] [address] Pending Results Name Type Priority Associated Diagnoses Date /Time CBC WITH WBC DIFFERENTIAL Lab STAT Thrombocytopenia ([facility]) 02/27/2023 11:37 AM EDT BASIC METABOLIC PANEL Lab Routine Chronic hyponatremia 02/27/2023 11:37 AM EDT OSMOLALITY, SERUM Lab Routine Low serum sodium 02/27/2023 11:37 AM EDT CBC Lab STAT Thrombocytopenia ([facility]) 02/27/2023 11:37 AM EDT DIFFERENTIAL, AUTOMATED Lab STAT Thrombocytopenia ([facility]) 02/27/2023 11:37 AM EDT SODIUM, RANDOM URINE Lab Routine Low serum sodium 02/27/2023 11:45 AM EDT OSMOLALITY, URINE Lab Routine Low serum sodium 02/27/2023 11:45 AM EDT Scheduled Procedures Name Priority Associated Diagnoses Date/Ti [...] this encounter Medical Devices Implanted Type Area Scout Leaser Device Identifier Shelf Expiration Date Model / Serial / Lot Cover Sycamore Hole 17mm 421.554 - [id number] Implanted:Qty : 1 on 04/20/2022 by Prudencio Sung III, [place] [facility] [place]: Head SYNTHES MAXILLOFACIAL 421.554 / / Valve Tavr Jayson 29mm - [id number] Implanted:Qty : 1 on 09/05/2022 by Alexis Crenshaw MD at [facility] [facility] [place] [employer] [id number] 03/08/2023 [id number] / / documented as of this encounter Visit Diagnoses Diagnosis Thrombocytopenia (HCC) Thrombocytopenia, unspecified Chronic hyponatremia Hyposmolality and/or hyponatremia Low serum sodium documented in this encounter Advance Directives Documents on File Type Date Recorded Patient Ocean Export Coordinator Expl anation Advance Directives and Living [...] Advance Directives occurred with: Patient Care Teams Commercial Artist Lettering Relationship Specialty Start Date End Date Jose Angel Weeks DO [address] [place] [address] PCP - General Internal Medicine 07/25/21 documented as of this encounter
--- OUTSIDE RECORDS SUMMARY | 2023-03-13 08:39 | External Medical Summary | Summary of Care ---
Author Name Unknown Organization [facility] Address [address] [place] [address] Phone [phone] Care Team Providers Care Offset Press Operator Helper Name Role Phone Jose Angel Weeks DO Primary Care Provider [phone] Reason for Visit * Reason Onset Date Comments Test Results 03/01/2023 Encounter Details Date Type Department Care Team (Late st Contact Info) Description 03/01/2023 Telephone Family Practice [facility] [address] [place] [phone] Jose Angel Weeks DO [address] [place] [address] Test Results (/) Allergies Active Allergy Reactions Criticality Noted Date Comments Ibuprofen 12/12/2013 Aspirin 07/03/2021 Other reaction(s): CANNOT TAKE DUE TO GASTRITIS Valdecoxib 03/03/2013 General ill feeling Celecoxib Other (Please comment) 08/27/2017 joint terminal attack controller use caused heart-burn Codeine 12/12/2022 Other Reaction(s): [...] as of this encounter (statuses as of 03/01/2023) Medications Medication Sig Dispensed Refills Start Date End Date Status ALAVERT [address] one pill on tongue once daily as needed for allergies 30 Tab 5 10/21/2012 Active VITAMIN B-12 500 MCG PO TABSIndications: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 0 10/22/2012 Active fluticasone (FLONASE) 50 MCG/ACT nasal sprayIndications:Netting Inspector natalia rhinitis USE TWO SPRAYS IN EACH NOSTRIL ONCE DAILY 16 g 4 10/27/2014 Active Additional Information Patient taking differently: 1 [place] Nasal Daily(AM), Reported on 09/13/2022 Vitamin D3 [...] After breakfast and after lunch 60 Each 5 05/18/2022 Active Systane Overnight Therapy 0.3 % Ophthalmic Gel (Hydroxypropyl Methylcellulose (Hypromellose))Indica tions:Dry eye Instill 1 Drop into both eyes at bedtime. 10 g 1 05/18/2022 Active Nystatin-Triamcinolon e 855427-5.1 UNIT/GM-% External Cream (Mycolog)Indications: Chronic dermatitis APPLY [...] as of this encounter (statuses as of 03/01/2023) Active Problems Problem Noted Date Diagnosed Date Paroxysmal atrial fibrillation 01/29/2023 Obstructive sleep apnea of adult 01/29/2023 Status post transcatheter ao rtic valve replacement (TAVR) using bioprosthesis 09/04/2022 Aortic ectasia 05/18/[address] [place] co 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 angina pectoris 05/18/2022 [...] 09/12 BCC right upper back BCC left sabianist History of compression fracture of spine 018 Overview: Winter , T10, L5 - traumatic 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 leg, recurrent Diastolic dysfunction 07/06/2016 Thrombocytopenia 06/05/2013 joint terminal attack controller current use of anticoagulant therapy 0 10/21/2012 Overview: ICD-10 update of inactive term Insomnia Chronic rhinitis documented as of this encounter (statuses as of 03/01/2023) Resolved Problems Problem Noted Date Diagnosed Date [...] as of this encounter (statuses as of 03/01/2023) Immunizations Name Administration Dates Next Due COVID-19 mRNA, LNP-s, No Pre serve, 2-Dose Series ([employer]) 08/02/2021,02/13/2021,07/28/2020,06/27 COVID-19, MRNA-LNP, 23-24, P F, 30 MCG/0.3 mL, 12 YRS AND ABOVE, IM ([employer]-Comirnat[employer]apZilla) 02/12/2023 Covid-19, Mrna, Lnp-s, Pf, B ivalent, [...] encounter Miscellaneous Notes * Telephone Encounter - Aaliyah Clemente LPN - 03/01/2023 4:03 PM EDT Patient is aware and will comply. Thank you Patient is scheduled is scheduled 03/11. * Telephone Encounter - Aaliyah Clemente LPN - 03/01/2023 4:02 PM EDT ----- Message from Jose Angel Weeks DO sent at 02/27/2023 9:14 PM EDT ----- Sodium has improved. Serum OSM and Urine sodium are good. Patient is stable for procedure as long as Hematology makes recommendations on low platelet count. documented in this encounter Plan of Treatment Upcoming Encounters Date Type Department Care Team (Late st Contact Info) Description 04/10/2023 11:15 AM EST Office Visit Hematology/Oncology [facility] [place] [address] [place] [address] Edmar Meeks MD [address] [place] [address] 06/04/2023 2:00 PM EST Office Visit Family Practice [facility] [place] [address] [place] [address] Jose Angel Weeks DO [address] [facility] [address] 07/30/2023 10:40 AM EDT Office Visit Neurology [facility] [place] 200 [facility] [place] [address] Marquita Herrera PA-C 200 [facility] [place] [address] 10/28/2023 2:00 PM EDT Cardiac Studies Cardiac Studies, [facility] 132 [facility] [place] [address] 12/09/2023 2:15 PM EDT Office Visit [facility] [place] 200 [facility] [place] [address] Jacky Arroyo MD 200 [facility] [place] [address] Scheduled Procedures Name Priority Associated Diagnoses Date/Ti [...] this encounter Medical Devices Implanted Type Area Drill Runner Helper Device Identifier Shelf Expiration Date Model / Serial / Lot Cover Adilene Hole 17mm 421.554 - [id number] Implanted:Qty : 1 on 04/20/2022 [place] Prudencio Sung III[place] [facility] [place] Head SYNTHES MAXILLOFACIAL 421.554 / / Valve Tavr Jayson 29mm - [id number] Implanted:Qty : 1 on 09/05/2022 [place] Alexis Crenshaw [place] [facility] [place] [employer] [id number] 03/08/2023 [id number] / / documented as of this encounter Advance Directives Documents on File Type Date Recorded Patient Radiologic Technologist Expl anation Advance Directives and Living Will [...] Advance Directives occurred with: Patient Care Teams Offset Press Operator Helper Relationship Specialty Start Date End Date Jose Angel Weeks DO [address] [place] [address] PCP - General Internal Medicine 07/25/21 documented as of this encounter
--- OUTSIDE RECORDS SUMMARY | 2023-03-13 08:39 | External Medical Summary | Summary of Care ---
Author Name Unknown Organization [facility] Address [address] [place] [address] Phone [phone] Care Team Providers Care Fuel Management Handler Name Role Phone Micky Jose Angel Bazan DO Primary Care Provider [phone] Reason for Visit * Reason Onset Date Comments Information 02/18/2023 Encounter Details Date Type Department Care Team (Late st Contact Info) Description 02/18/2023 Telephone Hematology/Oncology Treatment, [place] [address] [facility] [place] [address] Edmar Meeks MD 200 [place] [address] Information Allergies Active Allergy Reactions Criticality Noted Date Comments Ibuprofen 12/12/2013 Aspirin 07/03/2021 Other reaction(s): CANNOT TAKE DUE TO GASTRITIS Valdecoxib 03/03/2013 General ill feeling Celecoxib Other (Please comment) 08/27/2017 snf use caused heart-burn Codeine 12/12/2022 Other Reaction(s): [...] as of this encounter (statuses as of 03/02/2023) Medications Medication Sig Dispensed Refills Start Date End Date Status ALAVERT [address] one pill on tongue once daily as needed for allergies 30 Tab 5 10/21/2012 Active VITAMIN B-12 500 MCG PO TABSIndications: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 0 10/22/2012 Active fluticasone (FLONASE) 50 MCG/ACT nasal sprayIndications:Precision Agriculture Specialist natalia rhinitis USE TWO SPRAYS IN EACH NOSTRIL ONCE DAILY 16 g 4 10/27/2014 Active Additional Information Patient taking differently: 1 [place] Nasal Daily(AM), Reported on 09/13/2022 Vitamin D3 [...] 10 g 1 05/18/2022 Active Nystatin-Triamcinolon e 306305-6.1 UNIT/GM-% External Cream (Mycolog)Indications: Chronic dermatitis APPLY [...] as of this encounter (statuses as of 03/02/2023) Active Problems Problem Noted Date Diagnosed Date Paroxysmal atrial fibrillation 01/29/2023 Obstructive sleep apnea of adult 01/29/2023 Status post transcatheter ao rtic valve replacement (TAVR) using bioprosthesis 09/04/2022 Aortic ectasia 05/18/2022 Atherosclerosis of [place] co 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 angina pectoris 05/18/2022 [...] 09/12 BCC right upper back BCC left islam History of compression fracture of spine 018 Overview: Winter , T10, L5 - traumatic 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 leg, recurrent Diastolic dysfunction 07/06/2016 Thrombocytopenia 06/05/2013 snf current use of anticoagulant therapy 0 10/21/2012 Overview: ICD-10 update of inactive term Insomnia Chronic rhinitis documented as of this encounter (statuses as of 03/02/2023) Resolved Problems Problem Noted Date Diagnosed Date [...] as of this encounter (statuses as of 03/02/2023) Immunizations Name Administration Dates Next Due COVID-19 mRNA, LNP-s, No Pre serve, 2-Dose Series ([employer]) 08/02/2021,02/13/2021,07/28/2020,06/27 COVID-19, MRNA-LNP, 23-24, P F, 30 MCG/0.3 mL, 12 YRS AND ABOVE, IM ([employer] [facility]) 02/12/2023 Covid-19, Mrna, Lnp-s, Pf, B ivalent, [...] 02/18/2023 10:24 AM EDT Received fax from [facility] pre-anesthesia testing. Patient is scheduled [...] response can be faxed to Pre-admission testing [phone]. Dr Meeks: please advise on labs/ surgery. Thanks! documented in this encounter Plan of Treatment Upcoming Encounters Date Type Department Care Team (Late st Contact Info) Description 04/10/2023 11:15 AM EST Office Visit Hematology/Oncology [facility] [address] [place], [place] [address] Edmar Meeks MD 200 [facility] [place] [address] 06/04/2023 2:00 PM EST Office Visit Family Practice [address] [place] [address], [place] 293 [place] [address] Jose Angel Weeks, 293 [place] [address] 07/30/2023 10:40 AM EDT Office Visit Neurology [facility] 200 [facility] [place] [address] Marquita Herrera PA-C 200 [facility] [place] [address] 10/28/2023 2:00 PM EDT Cardiac Studies Cardiac Studies, [facility] 132 [facility] [place] [address] 12/09/2023 2:15 PM EDT Office Visit Dermatology [facility] 200 [facility] [place], [place] [address] Jacky Arroyo MD [address] [facility] [place] [address] Scheduled Procedures Name Priority Associated Diagnoses Date/Ti [...] this encounter Medical Devices Implanted Type Area Preservationist Device Identifier Shelf Expiration Date Model / Serial / Lot Cover [place] [employer] Hole 17mm 421.554 - [id number] Implanted:Qty : 1 on 04/20/2022 by Prudencio Sung III, MD [place] [facility] [place] Left: Head SYNTHES MAXILLOFACIAL 421.554 / / Valve Tavr Jayson 29mm - [id number] Implanted:Qty : 1 on 09/05/2022 by Alexis Crenshaw MD at [facility] [place] [employer] [id number] 03/08/2023 [id number] / / documented as of this encounter Advance Directives Documents on File Type Date Recorded Patient Tire Mold Engraver Expl anation Advance Directives and Living Will [...] Advance Directives occurred with: Patient Care Teams Fuel Management Handler Relationship Specialty Start Date End Date Jose Angel Weeks DO [address] [place] [facility] [place] [address] PCP - General Internal Medicine 07/25/21 documented as of this encounter
--- OUTSIDE RECORDS SUMMARY | 2023-03-13 08:39 | External Medical Summary | Summary of Care ---
Author Name Unknown Organization [facility] Address [address] [place] [address] Phone [phone] Care Team Providers Care Scientific Database Curator Name Role Phone Jose Angel Weeks DO Primary Care Provider [phone] Reason for Visit * Reason Onset Date Comments Sleep Apnea Device 12/04/2022 Encounter Details Date Type Department Care Team (Late st Contact Info) Description 12/04/2022 Telephone Sleep Lab, [facility] [address] [place] [address] Heidi Colón DO [address] [place] [address] Sleep Apnea Device Allergies Active Allergy Reactions Criticality Noted Date Comments Ibuprofen 12/12/2013 Aspirin 07/03/2021 Other reaction(s): CANNOT TAKE DUE TO GASTRITIS Valdecoxib 03/03/2013 General ill feeling Celecoxib Other (Please comment) 08/27/2017 FDC use caused heart-burn Codeine 12/12/2022 Other Reaction(s): [...] 10/22/2012 Active fluticasone (FLONASE) 50 MCG/ACT nasal sprayIndications:Lathe Set Up Person natalia rhinitis USE TWO SPRAYS IN EACH NOSTRIL ONCE DAILY 16 g 4 10/27/2014 Active Additional Information Patient taking differently: 1 [place] Nasal Daily(AM), Reported on 09/13/2022 Vitamin D3 [...] 10 g 1 05/18/2022 Active Nystatin-Triamcinolon e 954260-7.1 UNIT/GM-% External Cream (Mycolog)Indications: Chronic dermatitis APPLY [...] A DAY 180 Each 4 09/18/2022 Active documented as of this encounter (statuses as of 03/02/2023) Active Problems Problem Noted Date Diagnosed Date Paroxysmal atrial fibrillation 01/29/2023 Obstructive sleep apnea of adult 01/29/2023 Status post transcatheter ao rtic valve replacement (TAVR) using bioprosthesis 09/04/2022 Aortic ectasia 05/18/2022 Atherosclerosis of [place] co 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 angina pectoris 05/18/2022 [...] 09/12 BCC right upper back BCC left hindu History of compression fracture of spine 018 Overview: Winter , T10, L5 - traumatic 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 leg, recurrent Diastolic dysfunction 07/06/2016 Thrombocytopenia 06/05/2013 FDC current use of anticoagulant therapy 0 10/21/2012 [...] mRNA, LNP-s, No Pre serve, 2-Dose Series ([email or web address]) 08/02/2021,02/13/2021,07/28/2020,06/27 Covid-19, Mrna, Lnp-s, Pf, B ivalent, 30 Mcg, IM, 12 yrs and above ([email or web address]) 10/11/2022,01/30/2022 Pneumococcal Conjugate Vacc, 13 Valent (Prevnar) 03/15/2015 Pneumococcal Polysaccharide PPV23 (Pneumovax) 10/22/2011 SEASONAL INFLUENZA, PF, 6 M & Above, IM , (FLULAVAL or FLUZONE) 01/29/2020,01/10/2018 Seasonal Influenza, Quadriva lent Hd (Fluzone Hd) 02/07/2022,01/17/2021 Seasonal Influenza, Quadriva lent, No Preserve, IM [...] Passive Smoke Exposure: Past Smokeless Tobacco: Never Alcohol Use Standard Drinks/Week Comments No 0 [...] encounter Miscellaneous Notes * Telephone Encounter - Melinda Dunham, RPSGT - 12/04/2022 12:55 AM EDT Data downloaded, verified and scored. Physician notified that the OCST study is ready for review and interpretation. L out 9:16pm L on 7:08am JOAN 44.1 Low sat 70% HST ordered by Dr. Colón. Routed to Dr. Colón in [place]. ESS: documented in this encounter Plan of Treatment Upcoming Encounters Date Type Department Care Team (Late st Contact Info) Description 04/10/2023 11:15 AM EST Office Visit Hematology/Oncology [facility] [address] [facility] [place] [address] Edmar Meeks MD [address] [facility] [place] [address] 06/04/2023 2:00 PM EST Office Visit Family Practice [address] [place] [address] [facility], [place] [address] Jose Angel Weeks DO 293 [facility], [place] [address] 07/30/2023 10:40 AM EDT Office Visit Neurology [facility] [address] [place] [address] Marquita Herrera PA-C [address] [facility] [place] [address] 10/28/2023 2:00 PM EDT Cardiac Studies Cardiac Studies, [facility] 132 [facility] [place] [address] 12/09/2023 2:15 PM EDT Office Visit Dermatology [facility] [address] [place] [address] Jacky Aroryo MD [address] [facility] [place] [address] Scheduled Procedures Name Priority Associated Diagnoses Date/Ti [...] this encounter Medical Devices Implanted Type Area Guest Services Attendant Device Identifier Shelf Expiration Date Model / Serial / Lot Cover [place] Hole 17mm 421.554 - [id number] Implanted:Qty : 1 on 04/20/2022 by Prudencio Sung III, MD at OR [facility] Left: Head SYNTHES MAXILLOFACIAL 421.554 / / Valve Tavr Jayson 29mm - [id number] Implanted:Qty : 1 on 09/05/2022 by Alexis Crenshaw MD at [facility]IAC LABS [facility] [employer] [id number] 03/08/2023 [id number] / / documented as of this encounter Advance Directives Documents on File Type Date Recorded Patient Volleyball Assembler Expl anation Advance Directives and Living Will [...] Advance Directives occurred with: Patient Care Teams Scientific Database Curator Relationship Specialty Start Date End Date Jose Angel Weeks DO 293 [place] [address] PCP - General Internal Medicine 07/25/21 documented as of this encounter
--- OUTSIDE RECORDS SUMMARY | 2023-03-13 08:39 | External Medical Summary | Summary of Care ---
Author Name Unknown Organization [facility] Address [address] [place] [address] Phone [phone] Care Team Providers Care Corsage Maker Name Role Phone Micky Jose Angel Bazan DO Primary Care Provider [phone] Reason for Visit * Reason Onset Date Comments Test Results Lab 02/28/2023 Encounter Details Date Type Department Care Team (Late st Contact Info) Description 02/28/2023 Telephone Hematology/Oncology [facility] [address] [facility] [place] [address] Edmar Meeks MD 200 [place] [address] Test Results Lab Allergies Active Allergy Reactions Criticality Noted Date Comments Ibuprofen 12/12/2013 Aspirin 07/03/2021 Other reaction(s): CANNOT TAKE DUE TO GASTRITIS Valdecoxib 03/03/2013 General ill feeling Celecoxib Other (Please comment) 08/27/2017 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 Codeine 12/12/2022 Other [...] 10/22/2012 Active fluticasone (FLONASE) 50 MCG/ACT nasal sprayIndications:Senior Web Architect natalia rhinitis USE TWO SPRAYS IN EACH NOSTRIL ONCE DAILY 16 g 4 10/27/2014 Active Additional Information Patient taking differently: 1 [place] Nasal Daily(AM), Reported on 09/13/2022 Vitamin D3 [...] 10 g 1 05/18/2022 Active Nystatin-Triamcinolon e 811392-7.1 UNIT/GM-% External Cream (Mycolog)Indications: Chronic dermatitis APPLY [...] bioprosthesis 09/04/2022 Aortic ectasia 05/18/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 05/18/2022 [...] 09/12 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 History of compression fracture of spine 018 Overview: Winter , T10, L5 - traumatic 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 ----- Message from Edmar Meeks MD sent at 02/28/2023 6:22 AM EDT ----- Blood workup done on 02/27/2023: - WBC 4700, H&H of , platelet count of 85,000. Overall stable blood counts, stable mild thrombocytopenia. I am seeing him on 04/10/2023. documented in this encounter Plan of Treatment Upcoming Encounters Date Type Department Care Team (Late st Contact Info) Description 04/10/2023 11:15 AM EST Office Visit Hematology/Oncology [facility] [address] [place] [address] Edmar Meeks MD 200 [facility] [place] [address] 06/04/2023 2:00 PM EST Office Visit Family Practice [address] [place] [address] [place] [address] Jose Angel Weeks, DO [facility] [address] 07/30/2023 10:40 AM EDT Office Visit Neurology [facility] [place] [address] [place] [address] Marquita Herrera PA-C 200 [facility] [place] [address] 10/28/2023 2:00 PM EDT Cardiac Studies Cardiac Studies, [facility] [address] [place] [address] 12/09/2023 2:15 PM EDT Office Visit Dermatology [facility] [address] [facility] [place] [address] Jacky Arroyo MD 200 [facility] [place] [address] Scheduled Procedures Name Priority Associated Diagnoses Date/Ti [...] this encounter Medical Devices Implanted Type Area Plastic Parts Designer Device Identifier Shelf Expiration Date Model / Serial / Lot Cover [place] Hole 17mm 421.554 - [id number] Implanted:Qty : 1 on 04/20/2022 by Prudencio Sung III, [place] [facility] Left: Head SYNTHES MAXILLOFACIAL 421.554 / / Valve Tavr Jayson 29mm - [id number] Implanted:Qty : 1 on 09/05/2022 by Alexis Crenshaw MD at [facility] [employer] [id number] 03/08/2023 [id number] / / documented as of this encounter Advance Directives Documents on File Type Date Recorded Patient Dress Cutter Expl anation Advance Directives and Living Will [...] Advance Directives occurred with: Patient Care Teams Corsage Maker Relationship Specialty Start Date End Date Jose Angel Weeks DO [address] [place] [address] PCP - General Internal Medicine 07/25/21 documented as of this encounter
--- OUTSIDE RECORDS SUMMARY | 2023-03-13 08:40 | External Medical Summary | Summary of Care ---
Author Name Unknown Organization [facility] Address [address] [place] [address] Phone [phone] Care Team Providers Care Manager Database Name Role Phone Jose Angel Weeks DO Primary Care Provider [phone] Reason for Visit * Reason Comments Outpatient Testing Encounter Details Date Type Department Care Team (Latest Contact Info) Description 02/27/2023 11:40 AM EDT Laboratory Laboratory [facility] [address] [place] [phone] [facility] Lab [facility] 200 [facility] [place] [address] Thrombocytopenia (HCC); Chronic hyponatremia; Low serum sodium Allergies Active Allergy Reactions Criticality Noted Date Comments Ibuprofen 12/12/2013 Aspirin 07/03/2021 Other reaction(s): CANNOT TAKE DUE TO GASTRITIS Valdecoxib 03/03/2013 General ill feeling Celecoxib Other (Please comment) 08/27/2017 ad terminal makeup operator use caused 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-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 Codeine 12/12/2022 Other Reaction(s): [...] 10/22/2012 Active fluticasone (FLONASE) 50 MCG/ACT nasal sprayIndications:Desktop Engineer natalia rhinitis USE TWO SPRAYS IN EACH NOSTRIL ONCE DAILY 16 g 4 10/27/2014 Active Additional Information Patient taking differently: 1 [place]al[place] Nasal Daily(AM), Reported on 09/13/2022 Vitamin D3 [...] 10 g 1 05/18/2022 Active Nystatin-Triamcinolon e 933282-7.1 UNIT/GM-% External Cream (Mycolog)Indications: Chronic dermatitis APPLY [...] bioprosthesis 09/04/2022 Aortic ectasia 05/18/2022 Atherosclerosis of [place] co 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 angina pectoris 05/18/2022 [...] 09/12 BCC right upper back BCC left taoism History of compression fracture of spine 018 [...] mRNA, LNP-s, No Pre serve, 2-Dose Series ([employer]) 08/02/2021,02/13/2021,07/28/2020,06/27 COVID-19, MRNA-LNP, 23-24, P F, 30 MCG/0.3 mL, 12 YRS AND ABOVE, IM ([employer]) 02/12/2023 Covid-19, Mrna, Lnp-s, Pf, B ivalent, [...] AM EST Office Visit Hematology/Oncology [facility] [address] [place] [address] Edmar Meeks MD [address] [place] [address] 06/04/2023 2:00 PM EST Office Visit Family Practice [address] [place] [address] [facility] [address] Jose Angel Weeks, 293 [facility] [address] 07/30/2023 10:40 AM EDT Office Visit Neurology [facility] [address] [place] [address] Marquita Herrera PA-C [address] [place] [address] 10/28/2023 2:00 PM EDT Cardiac Studies Cardiac Studies, [facility] 132 [facility] [place] [address] 12/09/2023 2:15 PM EDT Office Visit Dermatology [facility] [address] [place] [address] Jacky Arroyo MD [address] [place] [address] Pending Results Name Type Priority Associated Diagnoses Date /Time CBC WITH WBC DIFFERENTIAL Lab STAT Thrombocytopenia ([facility]) 02/27/2023 11:37 AM EDT BASIC METABOLIC PANEL Lab Routine Chronic hyponatremia 02/27/2023 11:37 AM EDT OSMOLALITY, SERUM Lab Routine Low serum sodium 02/27/2023 11:37 AM EDT CBC Lab STAT Thrombocytopenia ([facility]) 02/27/2023 11:37 AM EDT DIFFERENTIAL, AUTOMATED Lab STAT Thrombocytopenia ([facility]) 02/27/2023 11:37 AM EDT SODIUM, RANDOM URINE [...] this encounter Medical Devices Implanted Type Area Certified Prosthetist Device Identifier Shelf Expiration Date Model / Serial / Lot Cover [place] Hole 17mm 421.554 - [id number] Implanted:Qty : 1 on 04/20/2022 by Prudenico Sung III, MD at [place] [facility] Left: Head SYNTHES MAXILLOFACIAL 421.554 / / Valve Tavr Jayson 29mm - [id number] Implanted:Qty : 1 on 09/05/2022 by Alexis Crenshaw MD at [facility] [employer] [id number] 03/08/2023 [id number] / / documented as of this encounter Visit Diagnoses Diagnosis Thrombocytopenia (HCC) Thrombocytopenia, unspecified Chronic hyponatremia Hyposmolality and/or hyponatremia Low serum sodium documented in this encounter Advance Directives Documents on File Type Date Recorded Patient Climatologist Expl anation Advance Directives and Living Will 03/19/2022 LIVING WILL-LIVING W ILL Latest Code Status on File Code Status Date Activated Date Inactivated Comments Full Code 09/04/2022 4:40 PM 09/05/2022 6:38 PM This order reflects the patients wishes and were consensually agreed upon. Question Answer Comments Discussion of Advance Directives occurred with: Patient Code Status History Code Status Date Activated Date Inactivated Comments No Code 04/18/2022 7:23 PM 04/28/2022 5:35 PM Thi s order reflects the patients wishes and were consensually agreed upon. Question Answer Comments Discussion of Advance Directives occurred with: Patient Care Teams Manager Database Relationship Specialty Start Date End Date Jose Angel Weeks DO [address] [place] [address] PCP - General Internal Medicine 07/25/21 documented as of this encounter
--- OUTSIDE RECORDS SUMMARY | 2023-03-13 08:40 | External Medical Summary ---
Author Name Unknown Address Unknown Organization K09:[facility] [place] [address] Laboratory Report Ordering Provider Test Date Status SANJEEV BENAVIDES 02/27/2023 11:37:57 Final Observation Date Value Abnormality Reference (Units ) Status BUN 02/27/2023 11:37:57 24 Above high normal 6-20 (mg/dL) Final Creatinine 02/27/2023 11:37:57 0.9 0.6-1.2 (mg/dL) Final Glomerular filtration rate/1.73 sq M.predicted [Volume Rate/Area] in Serum, Plasma or Blood by Creatinine-based formula (CKD-EPI) 02/27/2023 11:37:57 88 >=60 (mL/min) Final eGFR is calculated based on the CKD-EPI 2020 equation SODIUM 02/27/2023 11:37:57 133 Below low normal 135 -146 (mmol/L) Final Potassium 02/27/2023 11:37:57 4.3 3.5-5.1 (m mol/L) Final Cl 02/27/2023 11:37:57 94 Below low normal 98- 107 (mmol/L) Final CO2 02/27/2023 11:37:57 33 Above high normal 22 -32 (mmol/L) Final Anion gap 02/27/2023 11:37:57 6 Below low normal 7-1 5 (mmol/L) Final Glucose 02/27/2023 11:37:57 91 70-120 (mg /dL) Final Calcium 02/27/2023 11:37:57 9.4 8.4-10.2 ( mg/dL) Final Performing Location [facility] [place] [address]
--- OUTSIDE RECORDS SUMMARY | 2023-03-13 08:40 | External Medical Summary ---
Author Name Unknown Address Unknown Organization K01:LABORATORY [facility] - [address] [place] [address] Laboratory Report Ordering Provider Test Date Status SHIV STEWART 02/27/2023 11:45:07 Final Observation Date Value Abnormality Reference (Units ) Status Sodium, Urine 02/27/2023 11:45:07 <20 (mmol/ L) Final Performing Location LABORATORY [facility] - [address] [place] [address]
--- OUTSIDE RECORDS SUMMARY | 2023-03-13 08:40 | External Medical Summary ---
Author Name Unknown Address Unknown Organization K09:[facility] [place] [address] Laboratory Report Ordering Provider Test Date Status LEW JARQUIN 02/27/2023 11:37:57 Final Observation Date Value Abnormality Reference (Units ) Status SYNC LEUKOCYTES IN BLOOD BY AUTOMATED COUNT 02/27/2023 11:37:57 4.70 4.00-10.80 (K/uL) Final Segs 02/27/2023 11:37:57 57.0 40.0-75.0 (%) Final Lymphs % 02/27/2023 11:37:57 27.7 18.0-42.0 (%) Final Monos 02/27/2023 11:37:57 12.6 Above high normal 1.0-11.0 (%) Final Eosinophils 02/27/2023 11:37:57 2.3 0.0-6.0 (%) Final Basos 02/27/2023 11:37:57 0.4 0.0-2.0 (%) Final Absolute Segs 02/27/2023 11:37:57 2.68 1.80-7.70 (K/uL) Final Lymphs, absolute 02/27/2023 11:37:57 1.30 1.00-4.80 (K/ul) Final Monos, Abs 02/27/2023 11:37:57 0.59 0.00-1.10 (K/uL) Final Eos, Abs 02/27/2023 11:37:57 0.11 0.00-0.70 (K/uL) Final Basos, Abs 02/27/2023 11:37:57 0.02 0.00-0.20 (K/uL) Final Performing Location [facility] [place] [address]
--- OUTSIDE RECORDS SUMMARY | 2023-03-13 08:40 | External Medical Summary ---
Author Name Unknown Address Unknown Organization [id number]:[facility] - [address] [place] [address] Laboratory Report Ordering Provider Test Date Status CANDELARIO FLORES 02/27/2023 11:45:07 Final Observation Date Value Abnormality Reference (Units) Status Bacteria identified in Specimen by Culture 02/27/2023 11:45:07 No significant growth Final Test: Culture, Urine, Quant itative
Specimen Source: Urine, Catheter
Specimen Type: Urine
Specimen Date: 02/27/2023 11:45 AM
Result Date: 02/28/2023 1:28 PM
Result Status: Final result
Resulting Lab: [facility]ORY [facility]
[address]
[place] [id number]

CULTURE

No significant growth

null Performing Location LABORATORY [facility] - [address] [place] [id number]
--- OUTSIDE RECORDS SUMMARY | 2023-03-13 08:40 | External Medical Summary | Summary of Care ---
Author Name Unknown Organization [facility] Address [address] [place] [address] Phone [phone] Care Team Providers Care Sheet Sorter Name Role Phone Jose Angel Weeks DO Primary Care Provider [phone] Reason for Visit * Reason Comments Outpatient Testing Encounter Details Date Type Department Care Team (Latest Contact Info) Description 02/27/2023 11:40 AM EDT Laboratory Laboratory [facility] [address] [place] [phone] [facility] Lab [facility] [address] [place] [address] Thrombocytopenia (HCC); Chronic hyponatremia; Low serum sodium Allergies Active Allergy Reactions Criticality Noted Date Comments Ibuprofen 12/12/2013 Aspirin 07/03/2021 Other reaction(s): CANNOT TAKE DUE TO GASTRITIS Valdecoxib 03/03/2013 General ill feeling Celecoxib Other (Please comment) 08/27/2017 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 Codeine 12/12/2022 Other [...] 10/22/2012 Active fluticasone (FLONASE) 50 MCG/ACT nasal sprayIndications:Jockey Valet natalia rhinitis USE TWO SPRAYS IN EACH NOSTRIL ONCE DAILY 16 g 4 10/27/2014 Active Additional Information Patient taking differently: 1 Cherry Nasal Daily(AM), Reported on 09/13/2022 Vitamin D3 [...] 10 g 1 05/18/2022 Active Nystatin-Triamcinolon e 318117-6.1 UNIT/GM-% External Cream (Mycolog)Indications: Chronic dermatitis APPLY [...] bioprosthesis 09/04/2022 Aortic ectasia 05/18/2022 Atherosclerosis of [place] co 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 angina pectoris 05/18/2022 [...] 09/12 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 History of compression fracture of spine 018 [...] mRNA, LNP-s, No Pre serve, 2-Dose Series ([employer]) 08/02/2021,02/13/2021,07/28/2020,06/27 COVID-19, MRNA-LNP, 23-24, P F, 30 MCG/0.3 mL, 12 YRS AND ABOVE, IM ([employer]) 02/12/2023 Covid-19, Mrna, Lnp-s, Pf, B ivalent, [...] 04/10/2023 11:15 AM EST Office Visit Hematology/Oncology [facility] [address] [place] [address] Edmar Meeks MD [address] [place] [address] 06/04/2023 2:00 PM EST Office Visit Family Practice [address] [place] [address] [facility] [address] Jose Angel Weeks, 293 [facility] [address] 07/30/2023 10:40 AM EDT Office Visit Neurology [facility] [address] [place] [address] Marquita Herrera PA-C [address] [place] [address] 10/28/2023 2:00 PM EDT Cardiac Studies Cardiac Studies, [facility] [address] [facility] [place] [address] 12/09/2023 2:15 PM EDT Office Visit Dermatology [facility] [address] [place] [address] Jacky Arroyo MD [address] [place] [address] Pending Results Name Type Priority Associated Diagnoses Date /Time CBC WITH WBC DIFFERENTIAL Lab STAT Thrombocytopenia ([facility]) 02/27/2023 11:37 AM EDT BASIC METABOLIC PANEL Lab Routine Chronic hyponatremia 02/27/2023 11:37 AM EDT OSMOLALITY, SERUM Lab Routine Low serum sodium 02/27/2023 11:37 AM EDT CBC Lab STAT Thrombocytopenia ([facility]) 02/27/2023 11:37 AM EDT DIFFERENTIAL, AUTOMATED Lab STAT Thrombocytopenia ([facility]) 02/27/2023 11:37 AM EDT SODIUM, [...] this encounter Medical Devices Implanted Type Area Hand I Blocker Device Identifier Shelf Expiration Date Model / Serial / Lot Cover [place] Hole 17mm 421.554 - [id number] Implanted:Qty : 1 on 04/20/2022 by Prudencio Sung III, MD at [place] [facility] Left: Head SYNTHES MAXILLOFACIAL 421.554 / / Valve Tavr Jayson 29mm - [id number] Implanted:Qty : 1 on 09/05/2022 by Alexis Crenshaw MD at [facility] [employer] [id number] 03/08/2023 [id number] / / documented as of this encounter Visit Diagnoses Diagnosis Thrombocytopenia (HCC) Thrombocytopenia, unspecified Chronic hyponatremia Hyposmolality and/or hyponatremia Low serum sodium documented in this encounter Advance Directives Documents on File Type Date Recorded Patient Product Merchandiser Expl anation Advance Directives and Living Will [...] Advance Directives occurred with: Patient Care Teams Sheet Sorter Relationship Specialty Start Date End Date Jose Angel Weeks DO [address] [place] [address] PCP - General Internal Medicine 07/25/21 documented as of this encounter
--- OUTSIDE RECORDS SUMMARY | 2023-03-13 08:40 | External Medical Summary ---
Author Name Unknown Address Unknown Organization K09:[facility] [place] [address] Laboratory Report Ordering Provider Test Date Status LEW JARQUIN 02/27/2023 11:37:57 Final Observation Date Value Abnormality Reference (Units ) Status WBC, Total 02/27/2023 11:37:57 4.70 4.00-10.8 0 (K/uL) Final RBC 02/27/2023 11:37:57 3.72 4.50-5.25 (M/uL) Final Hemoglobin 02/27/2023 11:37:57 13.0 Below low normal 14 .0-16.8 (g/dL) Final HCT 02/27/2023 11:37:57 39.0 Below low normal 40. 0-48.4 (%) Final MCV 02/27/2023 11:37:57 104.8 82.0-99.5 (fL) Final MCH 02/27/2023 11:37:57 34.9 27.0-34.0 (pg) Final MCHC 02/27/2023 11:37:57 33.3 32.0-36.0 (g/dL) Final RDW 02/27/2023 11:37:57 11.7 11.5-15.5 (%) Final Platelets 02/27/2023 11:37:57 85 Below low normal 140 -400 (K/uL) Final MPV 02/27/2023 11:37:57 9.7 6.6-11.1 ( fL) Final Performing Location [facility] [place] [address]
--- OUTSIDE RECORDS SUMMARY | 2023-03-13 08:40 | External Medical Summary ---
Author Name Unknown Address Unknown Organization [id number]:[facility] [place] - [address] [place] [id number] Laboratory Report Ordering Provider Test Date Status SHIV STEWART 02/27/2023 11:45:07 Final Observation Date Value Abnormality Reference (Units ) Status Osmolality, Urine 02/27/2023 11:45:07 446 50 -1200 (mOsm/kg) Final Performing Location [facility] - [address] [place] [id number]
--- OUTSIDE RECORDS SUMMARY | 2023-03-13 08:41 | External Medical Summary | Summary of Care ---
Author Name Unknown Organization [facility] Address [address] [place] [place] [place] [address] Phone [phone] Care Team Providers Care Snubber Name Role Phone Jose Angel Weeks DO Primary Care Provider [phone] Reason for Visit * Reason Onset Date Comments Advice 01/30/2023 Encounter Details Date Type Department Care Team (Late st Contact Info) Description 01/30/2023 Telephone Cardiology, [facility] [address] [place] [address] Ashok Roger DO [address] [place] [address] Advice Allergies Active Allergy Reactions Criticality Noted Date Comments Ibuprofen 12/12/2013 Aspirin 07/03/2021 Other reaction(s): CANNOT TAKE DUE TO GASTRITIS Valdecoxib 03/03/2013 General ill feeling Celecoxib Other (Please comment) 08/27/2017 buttermaker continuous churn use caused heart-burn Codeine 12/12/2022 Other Reaction(s): [...] as of this encounter (statuses as of 02/25/2023) Medications Medication Sig Dispensed Refills Start Date End Date Status ALAVERT [address] one pill on tongue once daily as needed for allergies 30 Tab 5 10/21/2012 Active VITAMIN B-12 500 MCG PO TABSIndications: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 0 10/22/2012 Active fluticasone (FLONASE) 50 MCG/ACT nasal sprayIndications:Curtain Cleaner natalia rhinitis USE TWO SPRAYS IN EACH NOSTRIL ONCE DAILY 16 g 4 10/27/2014 Active Additional Information Patient taking differently: 1 [place] Nasal Daily(AM), Reported on 09/13/2022 Vitamin D3 [...] 10 g 1 05/18/2022 Active Nystatin-Triamcinolon e 545569-2.1 UNIT/GM-% External Cream (Mycolog)Indications: Chronic dermatitis APPLY [...] as of this encounter (statuses as of 02/25/2023) Active Problems Problem Noted Date Diagnosed Date Paroxysmal atrial fibrillation 01/29/2023 Obstructive sleep apnea of adult 01/29/2023 Status post transcatheter ao rtic valve replacement (TAVR) using bioprosthesis 09/04/2022 Aortic ectasia 05/18/2022 Atherosclerosis of [place] co 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 angina pectoris 05/18/2022 [...] 09/12 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 History of compression fracture of spine 018 Overview: Winter , T10, L5 - traumatic 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 leg, recurrent Diastolic dysfunction 07/06/2016 Thrombocytopenia 06/05/2013 alf current use of anticoagulant therapy 0 10/21/2012 Overview: ICD-10 update of inactive term Insomnia Chronic rhinitis documented as of this encounter (statuses as of 02/25/2023) Resolved Problems Problem Noted Date Diagnosed Date [...] as of this encounter (statuses as of 02/25/2023) Immunizations Name Administration Dates Next Due COVID-19 mRNA, LNP-s, No Pre serve, 2-Dose Series (Inbiomotion) 08/02/2021,02/13/2021,07/28/2020,06/27 Covid-19, Mrna, Lnp-s, Pf, B ivalent, [...] encounter Miscellaneous Notes * Telephone Encounter - Zaira Rey LPN - 02/25/2023 3:57 PM EDT Office note and cardiac risk assessment faxed to [facility] * Telephone Encounter - Ashok Roger DO - 02/25/2023 2:39 PM EDT Please fax my preop [place] to the [place], from encounter today, 02/25/2023 Ashok Roger DO * Telephone Encounter - Jarad Gomez RN - 02/11/2023 2:56 PM EDT Received a call from [facility] anesthesia department. The would like to know if Dr. Roger would approve of the patient having left shoulder replacement on 03/11/2023. May reach Olga [facility] at [facility] [phone] * Telephone Encounter - Fara Herrmann OSA - 01/31/2023 11:17 AM EDT Good morning. Pt called in this morning and asked to disregard the below message until he goes to the hospital onthe and they tell him if he needs to clearance appt or not. Thank you. REENA Amaya * Telephone Encounter - Tamanna Beyer OSA - 01/30/2023 11:09 AM EDT Pt called, looking for appt for cardiac clearance. Pt is having shoulder replacement surgery 03/11/[address] has requested cardiac clearance. Please advise pt if he needs to come in. He was last seenby Elizabeth Flores on December 10, 2022. Please advise pt at your earliest convenience. Thank you /REENA Faustin documented in this encounter Plan of Treatment Upcoming Encounters Date Type Department Care Team (Late st Contact Info) Description 04/10/2023 11:15 AM EST Office Visit Hematology/Oncology [facility] [address] [facility] [place] [address] Edmar Meeks MD [address] [facility] [place] [address] 06/04/2023 2:00 PM EST Office Visit Family Practice [address] [place] [address] [facility] [place] [address] Jose Angel Weeks DO [address] [facility] [place] [address] 07/30/2023 10:40 AM EDT Office Visit Neurology [facility] [address] [facility] [place] [address] Marquita Herrera PA-C [address] [facility] [place] [address] 10/28/2023 2:00 PM EDT Cardiac Studies Cardiac Studies, [facility] [address] [facility] [place] [address] 12/09/2023 2:15 PM EDT Office Visit Dermatology [facility] [address] [facility] [place] [address] Jacky Arroyo MD [address] [facility] [place] [address] Scheduled Procedures Name Priority Associated Diagnoses Date/Ti [...] this encounter Medical Devices Implanted Type Area Homeowner Association Manager Device Identifier Shelf Expiration Date Model / Serial / Lot Cover Adilene Hole 17mm 421.554 - [id number] Implanted:Qty : 1 on 04/20/2022 by Prudencio Sung III, MD at [place] [facility] [place] Left: Head SY[employer]THES MAXILLOFACIAL 421.554 / / Valve Tavr Jayson 29mm - [id number] Implanted:Qty : 1 on 09/05/2022 by Alexis Crenshaw MD at [facility] [facility] [place] [employer] [place] [id number] 03/08/2023 [id number] / / documented as of this encounter Advance Directives Documents on File Type Date Recorded Patient Director Airport Expl anation Advance Directives and Living Will [...] Advance Directives occurred with: Patient Care Teams Snubber Relationship Specialty Start Date End Date Jose Angel Weeks DO [address] [facility] [place] [address] PCP - General Internal Medicine 07/25/21 documented as of this encounter
--- OUTSIDE RECORDS SUMMARY | 2023-03-13 08:41 | External Medical Summary | Summary of Care ---
Author Name Unknown Organization [facility] Address [address] [place] [address] Phone [phone] Care Team Providers Care Fisher Terrapin Name Role Phone Jose Angel Weeks DO Primary Care Provider [phone] Reason for Visit * Reason Onset Date Comments Test Results 02/25/2023 02/25/2023 Encounter Details Date Type Department Care Team (Late st Contact Info) Description 02/25/2023 Telephone Family Practice [address] [facility] [address] [place] [address] Jose Angel Weeks DO 293 [place] [address] Test Results (02/25/2023) Allergies Active Allergy Reactions Criticality Noted Date Comments Ibuprofen 12/12/2013 Aspirin 07/03/2021 Other reaction(s): CANNOT TAKE DUE TO GASTRITIS Valdecoxib 03/03/2013 General ill feeling Celecoxib Other (Please comment) 08/27/2017 shelter use caused heart-burn Codeine 12/12/2022 Other Reaction(s): [...] as of this encounter (statuses as of 02/26/2023) Medications Medication Sig Dispensed Refills Start Date End Date Status ALAVERT [address] one pill on tongue once daily as needed for allergies 30 Tab 5 10/21/2012 Active VITAMIN B-12 500 MCG PO TABSIndications: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 0 10/22/2012 Active fluticasone (FLONASE) 50 MCG/ACT nasal sprayIndications:Temporary Receptionist natalia rhinitis USE TWO SPRAYS IN EACH NOSTRIL ONCE DAILY 16 g 4 10/27/2014 Active Additional Information Patient taking differently: 1 [place] Nasal Daily(AM), Reported on 09/13/2022 Vitamin D3 [...] 10 g 1 05/18/2022 Active Nystatin-Triamcinolon e 448769-1.1 UNIT/GM-% External Cream (Mycolog)Indications: Chronic dermatitis APPLY [...] TIMES A DAY 180 Each 4 09/18/2022 4 Active Apixaban 5 MG Oral Tablet (Eliquis)Indications: [...] as of this encounter (statuses as of 02/26/2023) Active Problems Problem Noted Date Diagnosed Date Paroxysmal atrial fibrillation 01/29/2023 Obstructive sleep apnea of adult 01/29/2023 Status post transcatheter ao rtic valve replacement (TAVR) using bioprosthesis 09/04/2022 Aortic ectasia 05/18/2022 Atherosclerosis of [place] co 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 angina pectoris 05/18/2022 [...] 09/12 BCC right upper back BCC left roman catholic History of compression fracture of spine 018 Overview: Winter , T10, L5 - traumatic 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 leg, recurrent Diastolic dysfunction 07/06/2016 Thrombocytopenia 06/05/2013 shelter current use of anticoagulant therapy 0 10/21/2012 Overview: ICD-10 update of inactive term Insomnia Chronic rhinitis documented as of this encounter (statuses as of 02/26/2023) Resolved Problems Problem Noted Date Diagnosed Date [...] as of this encounter (statuses as of 02/26/2023) Immunizations Name Administration Dates Next Due COVID-19 mRNA, LNP-s, No Pre serve, 2-Dose Series (eRelyx) 08/02/2021,02/13/2021,07/28/2020,06/27 COVID-19, MRNA-LNP, 23-24, P F, 30 MCG/0.3 mL, 12 YRS AND ABOVE, IM (AirXP-Comirnat) 02/12/2023 Covid-19, Mrna, Lnp-s, Pf, B ivalent, 30 Mcg, IM, 12 yrs and above (eRelyx) 10/11/2022,01/30/2022 Pneumococcal Conjugate Vacc, 13 Valent (Prevnar) [...] Telephone Encounter - Aaliyah Clemente LPN - 02/26/2023 9:32 AM EDT Patient is aware and will comply. Thank you * Telephone Encounter - Aaliyah Clemente LPN - 02/25/2023 5:53 PM EDT Called, left message for patient to return call. Thank you * Telephone Encounter - Aaliyah Clemente LPN - 02/25/2023 5:52 PM EDT ----- Message from Jose Angel Weeks DO sent at 02/22/2023 1:14 PM EDT ----- Sodium is low. Check Serum sodium, serum osm, urine sodium, and urine osm documented in this encounter Plan of Treatment Upcoming Encounters Date Type Department Care Team (Late st Contact Info) Description 04/10/2023 11:15 AM EST Office Visit Hematology/Oncology [facility] [address] [place] [address] Edmar Meeks MD [address] [place] [address] 06/04/2023 2:00 PM EST Office Visit Family Practice [address], [place] [address] [place] [address] Jose Angel Weeks, 293 [place] [address] 07/30/2023 10:40 AM EDT Office Visit Neurology [facility] 200 [facility] [place] [address] Marquita Herrera PA-C [address] [facility] [place] [address] 10/28/2023 2:00 PM EDT Cardiac Studies Cardiac Studies, [facility] [address] [facility] [place] [address] 12/09/2023 2:15 PM EDT Office Visit Dermatology [facility] 200 [facility] [place] [address] Jacky Arroyo MD [address] [facility] [place], [place] [address] Scheduled Orders Name Type Priority Associated Diagnoses Orde r Schedule SODIUM Lab Routine Low serum sodium Expected: 02/25/2023 (Approximate), Expires: 02/25/2024 OSMOLALITY, SERUM Lab Routine Low serum sodium Expected: 02/26/2023, Expires: 02/26/2024 SODIUM, RANDOM URINE Lab Routine Low serum sodium Expected: 02/25/2023 (Approximate), Expires: 02/25/2024 OSMOLALITY, URINE Lab Routine Low serum sodium Expected: 02/25/2023 (Approximate), Expires: 02/25/2024 Scheduled Procedures Name Priority Associated Diagnoses Date/Ti [...] this encounter Medical Devices Implanted Type Area Nuclear Fuel Processing Technician Device Identifier Shelf Expiration Date Model / Serial / Lot Cover Adilene Hole 17mm 421.554 - [id number] Implanted:Qty : 1 on 04/20/2022 by Prudencio Sung III, [place] [facility] [place]: Head SYNTHES MAXILLOF[employer] 421.554 / / Valve Tavr Jayson 29mm - [id number] Implanted:Qty : 1 on 09/05/2022 by Alexis Crenshaw MD at [facility] [place] [employer] [place] [id number] 03/08/2023 [id number] / / documented as of this encounter Visit Diagnoses Diagnosis Low serum sodium- Primary documented in this encounter Advance Directives Documents on File Type Date Recorded Patient Hospital Monitor Expl anation Advance Directives and Living Will [...] Advance Directives occurred with: Patient Care Teams Fisher Terrapin Relationship Specialty Start Date End Date Jose Angel Weeks DO [address] [facility] [place] [address] PCP - General Internal Medicine 07/25/21 documented as of this encounter
--- OUTSIDE RECORDS SUMMARY | 2023-03-13 08:41 | External Medical Summary | Summary of Care ---
Author Name Unknown Organization [facility] Address [address] [place] [address] Phone [phone] Care Team Providers Care Avionics Manager Name Role Phone Jose Angel Weeks DO Primary Care Provider [phone] Reason for Visit * Reason Comments Follow Up Encounter Details Date Type Department Care Team (Latest Contact Info) Description 02/25/2023 2:00 PM EDT Telemedicine Cardiology, [facility] [address] [place] [address] Ashok Roger DO [address] [place] [address] Preoperative cardiovascular examination*; History of transcatheter aortic valve replacement (TAVR); Chronic hyponatremia; Thrombocytopenia (HCC); PAF (paroxysmal atrial fibrillation) ([facility]) Allergies Active Allergy Reactions Criticality Noted Date Comments Ibuprofen 12/12/2013 Aspirin 07/03/2021 Other reaction(s): CANNOT TAKE DUE TO GASTRITIS Valdecoxib 03/03/2013 General ill feeling Celecoxib Other (Please comment) 08/27/2017 rat exterminator use caused heart-burn Codeine 12/12/2022 Other [...] 10/22/2012 Active fluticasone (FLONASE) 50 MCG/ACT nasal sprayIndications:Supervisor Curing Room natalia rhinitis USE TWO SPRAYS IN EACH NOSTRIL ONCE DAILY 16 g 4 10/27/2014 Active Additional Information Patient taking differently: 1 [place] Nasal Daily(AM), Reported on 09/13/2022 Vitamin D3 [...] 10 g 1 05/18/2022 Active Nystatin-Triamcinolon e 859066-1.1 UNIT/GM-% External Cream (Mycolog)Indications: Chronic dermatitis APPLY [...] bioprosthesis 09/04/2022 Aortic ectasia 05/18/2022 Atherosclerosis of [place] co 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 angina pectoris 05/18/2022 [...] 09/12 BCC right upper back BCC left sikh History of compression fracture of spine 018 Overview: Winter , T10, L5 - traumatic 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 leg, recurrent Diastolic dysfunction 07/06/2016 Thrombocytopenia 06/05/2013 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 I was not in a hospital or clinic location. After connecting through telephone, patient was verified with two unique identifiers. Patient (or authorized legal customer assistance representative) was then informed that this was a Telemedicine visit and being conducted confidentially over secure lines. Methods to assure confidentiality were taken. Patient acknowledged consent and understanding of privacy and security of the Telemedicine visit. The patient agreed to participate. 02/25/2023 Cardiology Follow Up CHIEF COMPLAINT : preoperative assessment SUBJECTIVE: Alec Peterson is a 82 year old year old male evaluated by telephone in preparation to upcoming left shoulder replacement scheduled at [facility] on 03/11/[address] Moore. Patient's recent history dates back to March, when he had a mechanical fall on ice with resultant left shoulder injury and intracranial bleeding that required neurosurgical intervention. He subsequently had transcatheter aortic valve replacement on 09/04/22. He notes feeling well with no chest pain or shortness of breath. Denies syncope. History: Severe aortic valve stenosis, s/p TAVR (# 29mm Francisco Jayson S3), 09/04/2022 Normal coronary arteries per pre TAVR cardiac catheterization 03/20/2022 at [facility] Mild aortic root/ascending aorta dilation, 4.0/4.0 cm respectively per echo 12/2021 Asymptomatic frequent PACs Diastolic dysfunction History of significant of the right leg DVTs (2003 and 2006) Longstanding history of thrombocytopenia with a platelet count in the range of 100-110,000 since 2013 (personal history of Lovenox causing worsening platelet count) Chronic hyponatremia History of fall resulting in left proximal humerus fracture and subdural hematoma requiring a left craniotomy, onlay duraplasty and subdural and subgaleal drain placement, 04/18/2022 at [facility] Episode of paroxysmal atrial fibrillation during hospital stay, 03/2022- on Eliquis Extensive ROS: All systems reviewed & are unremarkable except as noted in HPI & below Cardiovascular (chest pain/palpitations/fluttering/diaphoresis/dyspnea on exertion/paroxysmally nocturnal dyspnea):Negative Review of patient's allergies indicates: Allergen Reactions Lovenox [Enoxaparin] Other (Please comment) Affected platelet count Advil [Ibuprofen] Aspirin Other reaction(s): CANNOT TAKE DUE TO GASTRITIS Bextra [Valdecoxib] General ill feeling Celebrex [Celecoxib] Other (Please comment) [facility] use caused heart-burn Codeine Other Reaction(s): GENERAL ILL FEELING Cyclosporine Finasteride Other (Please comment) Gastritis, duodenitis Garlic Other reaction(s): stomach cramp, diarrhea Hydrocodone Other reaction(s): vomiting Hydrocodone-Acetaminophen vomiting Hydromorphone Other (Please comment) Severe constipation Lidocaine Other (Please comment) Lidocaine patch - sinus infection Loratadine Raising heart Naproxen Sodium Rash Onion Other reaction(s): upset stomach/diarrhea Prilosec [Omeprazole] contributed to PSVT Pseudoephedrine Other reaction(s): RACING HEART Restasis [Cyclosporine] Vioxx [Rofecoxib] General ill feeling and stomach upset Current Outpatient Medications Medication Sig Dispense Refill ALAVERT [address] one pill on tongue once daily as needed for allergies 30 Tab 5 VITAMIN B-12 500 MCG PO TABS Take 1 Tablet by mouth in the morning. fluticasone (FLONASE) 50 MCG/ACT nasal spray USE TWO SPRAYS IN EACH NOSTRIL ONCE DAILY (Patient taking differently: Administer 1 [place] into nostril in the morning.) 16 g 4 Vitamin D3 10 MCG (400 UNIT) Oral Tablet (cholecalciferol) Take 1 Tablet by mouth in the morning. Artificial Tears 0.1-0.3 % Ophthalmic Solution (Dextran 70-Hypromellose) Instill into eye at bedtime. Konsyl Original Formula 100 % Oral Powder (Psyllium) Take two teaspoons by mouth twice daily (patient home med) 660 g 5 Xiidra 5 % Ophthalmic Solution (Lifitegrast) Instill 1 Drop into eye 2 times a day. After breakfastand after lunch 60 Each 5 Systane Overnight Therapy 0.3 % Ophthalmic Gel (Hydroxypropyl Methylcellulose (Hypromellose)) Instill 1 Drop into both eyes at bedtime. 10 g 1 Nystatin-Triamcinolone 919435-6.1 UNIT/GM-% External Cream (Mycolog) APPLY TOPICALLY NEEDED DIRECTED BY PHYSICIAN, uses in groin 30 g 2 Metoprolol Tartrate 50 MG Oral Tablet (Lopressor) Take 1 Tablet by mouth in the morning and 1 Tablet before bedtime. 180 Tablet 3 Acetaminophen 500 MG Oral Tablet (Tylenol) Take 2 Tablets by mouth every 8 hours as needed for Pain, Mild or Pain, Moderate. Xiidra 5 % Ophthalmic Solution INSTILL ONE DROP IN EACH EYE TWO TIMES A DAY 180 Each 4 Apixaban 5 MG Oral Tablet (Eliquis) Take 1 Tablet by mouth in the morning and 1 Tablet before bedtime. 60 Tablet 5 Folic Acid 1 MG Oral Tablet Take 1 Tablet by mouth in the morning. 30 Tablet 5 Mupirocin Calcium 2 % External Cream (Bactroban) Apply topically to affected area 3 times a day. Opening area on face. 30 g 3 No current facility-administered medications for this visit. OBJECTIVE/PHYSICAL EXAMINATION: No physical exam was performed as this was a telephone only visit. Data: EKG was performed 12/20/22 and interpreted personally: SR at 55 beats per minute, first degree AV block, occasional PACs. No significant repolarization changes. Summary of ttecho performed 11/15/22: The LV wall thickness is mildly increased (concentric). The left ventricular wall motion is normal. The qualitative LV ejection fraction is 60-64% (normal). The left atrium is moderately enlarged. The patient is status post TAVR with Jayson type prosthetic valve. Aortic valve prosthesis stenosis is absent. Trivial paravalvular aortic valve prosthesis regurgitation is present. There is severe mitral annular calcification. Mild mitral stenosis is present. Mild mitral regurgitation is present. Compared to the report of the prior study dated 09/05/22, there has been no significant change. The prosthetic valve gradients are unchanged. Lipid Panel Results: Results for orders placed or performed in visit on 08/13/22 LIPID PANEL WITH DIRECT LDL IF TG IS HIGH Result Value Ref Range Triglycerides 63 <=174 mg/dL Cholesterol 125 <200 mg/dL HDL Cholesterol 63 >39 mg/dL Non-HDL Cholesterol 62 <=159 mg/dL LDL Cholesterol 49 <=129 mg/dL Labs at [place] 02/11/23: Platelet count : 87k Sodium level 129 mmol / l ASSESSMENT / PLAN: 82 year old year old male 1. Preoperative cardiovascular examination 2. History of transcatheter aortic valve replacement (TAVR) 3. Chronic hyponatremia 4. Thrombocytopenia (HCC) 5. PAF (paroxysmal atrial fibrillation) (HCC) Stable cardiac signs and symptoms. The preop anesthesia clinic has reached out to Dr Kamaljit Meeks who follows pt from a hematology perspective For advice with regards to the patient's platelet count , which is relatively similar to prior CBC measurements. EKG performed at time of in person cardiology follow up in 2022 with stable findings. Pt interested in having shoulder surgery to improve his quality of life. He has not driven since his fall and injury in 03/2022. Pt stable to proceed with the operating room with anticipated low risk of cardiology complication. Advised to hold Eliquis with last preop dose in the evening 3 days prior to the procedure. Resume Eliquis 24-48 hrs post op depending on bleeding complications and platelet count. Advised to take his metoprolol with a sip of water the morning of the procedure. DO Ashok Kraus DO Cardiology, [address] [address] This chart was completed in part utilizing [employer] Speech Voice Recognition Software. Grammatical errors, random word insertions, prounoun errors, and incomplete sentences are an occasional consequence of this system due to software limitations, ambient noise, and hardware issues. Any formal questions or concerns about the content, text, or information contained within the body of this dictation should be directly addressed to the provider for clarification. documented in this encounter Plan of Treatment Upcoming Encounters Date Type Department Care Team (Late st Contact Info) Description 04/10/2023 11:15 AM EST Office Visit Hematology/Oncology [place], [place] [address] [place], [place] [address] Edmar Meeks MD 200 [facility] [place], [place] [address] 06/04/2023 2:00 PM EST Office Visit Family Practice [address], [place] [address] [place] [address] Jose Angel Weeks, [address] [place] [address] 07/30/2023 10:40 AM EDT Office Visit Neurology [facility] [address] [place], [place] [address] Marquita Herrera PA-C 200 [facility] [place] [address] 10/28/2023 2:00 PM EDT Cardiac Studies Card[facility], [facility] [address] 12/09/2023 2:15 PM EDT Office Visit Dermatology [facility] [address] [facility] [place], [place] [address] Jacky Arroyo MD 200 [facility] [place] [address] Scheduled Orders Name Type Priority Associated Diagnoses Orde r Schedule BASIC METABOLIC PANEL Lab Routine Chronic hyponatremia Expected: 02/26/2023, Expires: 02/26/2024 Scheduled Procedures Name Priority Associated Diagnoses Date/Ti [...] this encounter Medical Devices Implanted Type Area Bed Laster Device Identifier Shelf Expiration Date Model / Serial / Lot Cover [place] Hole 17mm 421.554 - [id number] Implanted:Qty : 1 on 04/20/2022 by Prudencio Sung III, MD at [place] [facility] Left: Head SYNTHES MAXILLOFACIAL 421.554 / / Valve Tavr Jayson 29mm - [id number] Implanted:Qty : 1 on 09/05/2022 by Alexis Crenshaw MD at [facility] [employer] [id number] 03/08/2023 [id number] / / documented as of this encounter Visit Diagnoses Diagnosis Preoperative cardiovascular examination- Primary Pre-operative cardiovascular examination History of transcatheter aortic valve replacement (TAVR) Chronic hyponatremia Hyposmolality and/or hyponatremia Thrombocytopenia (HCC) Thrombocytopenia, unspecified PAF (paroxysmal atrial fibrillation) (HCC) Atrial fibrillation documented in this encounter Advance Directives Documents on File Type Date Recorded Patient Verifying Specialist Expl anation Advance Directives and Living Will [...] Advance Directives occurred with: Patient Care Teams Avionics Manager Relationship Specialty Start Date End Date Jose Angel Weeks DO [address] [place] [address] PCP - General Internal Medicine 07/25/21 documented as of this encounter
--- OUTSIDE RECORDS SUMMARY | 2023-03-13 08:41 | External Medical Summary ---
Author Name Unknown Address Unknown Organization K09:[facility] [place] [address] Laboratory Report Ordering Provider Test Date Status LEW JARQUIN 02/27/2023 11:37:57 Final Observation Date Value Abnormality Reference (Units ) Status Nucleated erythrocytes/100 leukocytes [Ratio] in Blood by Automated count 02/27/2023 11:37:57 Final Performing Location [facility] [place] [address]
--- OUTSIDE RECORDS SUMMARY | 2023-03-13 08:41 | External Medical Summary ---
Author Name Unknown Address Unknown Organization K01:[facility] [place] [address] [address] Laboratory Report Ordering Provider Test Date Status SHIV STEWART 02/27/2023 11:37:57 Final Observation Date Value Abnormality Reference (Units ) Status Osmolality 02/27/2023 11:37:57 286 278-305 ( mOsm/kg) Final Performing Location [facility] - [address] [place] [address]
--- OUTSIDE RECORDS SUMMARY | 2023-03-13 08:41 | External Medical Summary | Summary of Care ---
Author Name Unknown Organization [facility] Address [address] [place] [address] Phone [phone] Care Team Providers Care Bee Tender Name Role Phone Micky Jose Angel Bazan DO Primary Care Provider [phone] Reason for Visit * Reason Onset Date Comments Information 02/18/2023 Encounter Details Date Type Department Care Team (Late st Contact Info) Description 02/18/2023 Telephone Hematology/Oncology Treatment, [place] [address] [address] Edmar Meeks MD [address] [place] [address] Information Allergies Active Allergy Reactions Criticality Noted Date Comments Ibuprofen 12/12/2013 Aspirin 07/03/2021 Other reaction(s): CANNOT TAKE DUE TO GASTRITIS Valdecoxib 03/03/2013 General ill feeling Celecoxib Other (Please comment) 08/27/2017 prison use caused heart-burn Codeine 12/12/2022 Other Reaction(s): [...] 10/22/2012 Active fluticasone (FLONASE) 50 MCG/ACT nasal sprayIndications:Cocoa Roaster natalia rhinitis USE TWO SPRAYS IN EACH NOSTRIL ONCE DAILY 16 g 4 10/27/2014 Active Additional Information Patient taking differently: 1 [place] Nasal Daily(AM), Reported on 09/13/2022 Vitamin D3 [...] 10 g 1 05/18/2022 Active Nystatin-Triamcinolon e 588977-6.1 UNIT/GM-% External Cream (Mycolog)Indications: Chronic dermatitis APPLY [...] bioprosthesis 09/04/2022 Aortic ectasia 05/18/2022 Atherosclerosis of [place] co 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 angina pectoris 05/18/2022 [...] 09/12 BCC right upper back BCC left sikhism History of compression fracture of spine 018 Overview: Winter , T10, L5 - traumatic 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 leg, recurrent Diastolic dysfunction 07/06/2016 Thrombocytopenia 06/05/2013 prison current use of anticoagulant therapy 0 10/21/2012 [...] mRNA, LNP-s, No Pre serve, 2-Dose Series ([employer]) 08/02/2021,02/13/2021,07/28/2020,06/27 COVID-19, MRNA-LNP, 23-24, P F, 30 MCG/0.3 mL, 12 YRS AND ABOVE, IM ([employer]) 02/12/2023 Covid-19, Mrna, Lnp-s, Pf, B [...] 02/18/2023 10:24 AM EDT Received fax from [facility] pre-anesthesia testing. Patient is [...] response can be faxed to Pre-admission testing [phone]. Dr Meeks: please advise on labs/ surgery. Thanks! documented in this encounter Plan of Treatment Upcoming Encounters Date Type Department Care Team (Late st Contact Info) Description 04/10/2023 11:15 AM EST Office Visit Hematology/Oncology [facility] [place] [address] [facility] [address] [place] [address] Edmar Meeks MD [address] [place] [address] 06/04/2023 2:00 PM EST Office Visit Family Practice [address], [place] [address] [facility] [address] Jose Angel Weeks, [address] [facility] [address] 07/30/2023 10:40 AM EDT Office Visit Neurology [facility] [address] [facility] [place] [address] Marquita Herrera PA-C [address] [place] [address] 10/28/2023 2:00 PM EDT Cardiac Studies Cardiac Studies, [facility] [place] [address] 12/09/2023 2:15 PM EDT Office Visit Dermatology [facility] [address] [place] [address] Jacky Arroyo MD [address] [place] [address] Scheduled Procedures Name Priority Associated Diagnoses Date/Ti [...] this encounter Medical Devices Implanted Type Area Head Grinder Device Identifier Shelf Expiration Date Model / Serial / Lot Cover [place] Hole 17mm 421.554 - [id number] Implanted:Qty : 1 on 04/20/2022 by Prudencio Sung III, MD at OR [facility] Left: Head SYNTHES MAXILLOFACIAL 421.554 / / Valve Tavr Jayson 29mm - [id number] Implanted:Qty : 1 on 09/05/2022 by Alexis Crenshaw MD at CARDIAC LABS [facility] [employer] [id number] 03/08/2023 [id number] / / documented as of this encounter Advance Directives Documents on File Type Date Recorded Patient Child Development Instructor Expl anation Advance Directives and Living Will [...] Advance Directives occurred with: Patient Care Teams Bee Tender Relationship Specialty Start Date End Date Jose Angel Weeks DO [address] [place] [address] PCP - General Internal Medicine 07/25/21 documented as of this encounter
--- OUTSIDE RECORDS SUMMARY | 2023-03-13 08:41 | External Medical Summary | Summary of Care ---
Author Name Unknown Organization [facility] Address [address] [place] [address] Phone [phone] Care Team Providers Care Muff Winder Name Role Phone Micky Jose Angel Bazan DO Primary Care Provider [phone] Reason for Visit * Reason Onset Date Comments Information 02/18/2023 Encounter Details Date Type Department Care Team (Late st Contact Info) Description 02/18/2023 Telephone Hematology/Oncology Treatment, [place] [address] [address] Edmar Meeks MD [address] [place] [address] Information Allergies Active Allergy Reactions Criticality Noted Date Comments Ibuprofen 12/12/2013 Aspirin 07/03/2021 Other reaction(s): CANNOT TAKE DUE TO GASTRITIS Valdecoxib 03/03/2013 General ill feeling Celecoxib Other (Please comment) 08/27/2017 detention use caused heart-burn Codeine 12/12/2022 Other Reaction(s): [...] as of this encounter (statuses as of 02/18/2023) Medications Medication Sig Dispensed Refills Start Date End Date Status ALAVERT [address] one pill on tongue once daily as needed for allergies 30 Tab 5 10/21/2012 Active VITAMIN B-12 500 MCG PO TABSIndications: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 0 10/22/2012 Active fluticasone (FLONASE) 50 MCG/ACT nasal sprayIndications:Silk Screen Printer Helper natalia rhinitis USE TWO SPRAYS IN EACH NOSTRIL ONCE DAILY 16 g 4 10/27/2014 Active Additional Information Patient taking differently: 1 [place] Nasal Daily(AM), Reported on 09/13/2022 Vitamin D3 [...] 10 g 1 05/18/2022 Active Nystatin-Triamcinolon e 859413-9.1 UNIT/GM-% External Cream (Mycolog)Indications: Chronic dermatitis APPLY [...] as of this encounter (statuses as of 02/18/2023) Active Problems Problem Noted Date Diagnosed Date Paroxysmal atrial fibrillation 01/29/2023 Obstructive sleep apnea of adult 01/29/2023 Status post transcatheter ao rtic valve replacement (TAVR) using bioprosthesis 09/04/2022 Aortic ectasia 05/18/2022 Atherosclerosis of [place] co 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 angina pectoris 05/18/2022 [...] 09/12 BCC right upper back BCC left mormonism History of compression fracture of spine 018 Overview: Winter , T10, L5 - traumatic 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 leg, recurrent Diastolic dysfunction 07/06/2016 Thrombocytopenia 06/05/2013 detention current use of anticoagulant therapy 0 10/21/2012 Overview: ICD-10 update of inactive term Insomnia Chronic rhinitis documented as of this encounter (statuses as of 02/18/2023) Resolved Problems Problem Noted Date Diagnosed Date [...] as of this encounter (statuses as of 02/18/2023) Immunizations Name Administration Dates Next Due COVID-19 mRNA, LNP-s, No Pre serve, 2-Dose Series ([employer]) 08/02/2021,02/13/2021,07/28/2020,06/27 COVID-19, MRNA-LNP, 23-24, P F, 30 MCG/0.3 mL, 12 YRS AND ABOVE, IM ([employer]) 02/12/2023 Covid-19, Mrna, Lnp-s, Pf, B [...] 02/18/2023 10:24 AM EDT Received fax from [facility] pre-anesthesia testing. Patient is scheduled for [...] response can be faxed to Pre-admission testing [phone]. Dr Meeks: please advise on labs/ surgery. Thanks! documented in this encounter Plan of Treatment Upcoming Encounters Date Type Department Care Team (Late st Contact Info) Description 04/10/2023 11:15 AM EST Office Visit Hematology/Oncology [facility] [place] [address] [facility] [place] [address] Edmar Meeks MD [address] [facility] [place] [address] 06/04/2023 2:00 PM EST Office Visit Family Practice [address] [facility] [address] Jose Angel Weeks, DO [address] [facility] [address] 07/30/2023 10:40 AM EDT Office Visit Neurology [facility] [address] [facility] [place] [address] Marquita Herrera PA-C [address] [place] [address] 10/28/2023 2:00 PM EDT Cardiac Studies [facility] Studies, [facility] [place] [address] 12/09/2023 2:15 PM EDT Office Visit Dermatology [facility] [address] [facility] [place] [address] Jacky Arroyo MD [address] [facility] [place] [address] Scheduled Procedures Name Priority Associated Diagnoses Date/Ti [...] this encounter Medical Devices Implanted Type Area Table Assembler Device Identifier Shelf Expiration Date Model / Serial / Lot Cover [place] Hole 17mm 421.554 - [id number] Implanted:Qty : 1 on 04/20/2022 by Prudencio Sung III, MD at [place] [facility] [place] Left: Head [employer]ES MAXILLOFACIAL 421.554 / / Valve Tavr Jayson 29mm - [id number] Implanted:Qty : 1 on 09/05/2022 by Alexis Crenshwa MD at [facility]ARDIAC LAB[facility] [place] [employer] [id number] 03/08/2023 [id number] / / documented as of this encounter Advance Directives Documents on File Type Date Recorded Patient Supervisor Estimator And Drafter Expl anation Advance Directives and Living Will [...] Advance Directives occurred with: Patient Care Teams Muff Winder Relationship Specialty Start Date End Date Jose Angel Weeks DO [address] [place] [address] PCP - General Internal Medicine 07/25/21 documented as of this encounter
--- OUTSIDE RECORDS SUMMARY | 2023-03-13 08:42 | External Medical Summary | Summary of Care ---
Author Name Unknown Organization [facility] Address [address] [place] [address] Phone [phone] Care Team Providers Care Safe Expert Name Role Phone EmilianoherminiaJose Angel DO Primary Care Provider [phone] Encounter Details Date Type Department Care Team Description 02/12/2023 Immunization Ancillary 65 [facility] [address] [place] [address] [place], Covid19 Vaccine [address] [address] Arrived Allergies Active Allergy Reactions Severity Noted Date Comments Ibuprofen 12/12/2013 Aspirin 07/03/2021 Other reaction(s): CANNOT TAKE DUE TO GASTRITIS Valdecoxib 03/03/2013 General ill feeling Celecoxib Other (Please comment) 08/27/2017 computer terminal operator use caused heart-burn Codeine 12/12/2022 Other Reaction(s): GENERAL ILL FEELING Cyclosporine 12/12/2013 Finasteride Other (Please comment) 08/18/2020 Gastritis, duodenitis Garlic 06/27/2021 Other reaction(s): stomach cramp, diarrhea Hydrocodone 06/27/2021 Other reaction(s): vomiting Hydrocodone-Acetaminophen 03/03/2013 vomiting Hydromorphone Other (Please comment) 08/27/2017 [...] as of this encounter (statuses as of 02/12/2023) Medications Medication Sig Dispensed Refills Start Date End Date Status ALAVERT [address] one pill on tongue once daily as needed for allergies 30 Tab 5 10/21/2012 Active VITAMIN B-12 500 MCG PO TABSIndications: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 0 10/22/2012 Active fluticasone (FLONASE) 50 MCG/ACT nasal sprayIndications:Director Of Financial Aid natalia rhinitis USE TWO SPRAYS IN EACH NOSTRIL ONCE DAILY 16 g 4 10/27/2014 Active Additional Information Patient taking differently: 1 [place] Nasal Daily(AM), Reported on 09/13/2022 Vitamin D3 [...] 10 g 1 05/18/2022 Active Nystatin-Triamcinolon e 077573-6.1 UNIT/GM-% External Cream (Mycolog)Indications: Chronic dermatitis APPLY [...] as of this encounter (statuses as of 02/12/2023) Active Problems Problem Noted Date Paroxysmal atrial fibrillation 3 Obstructive sleep apnea of adult 023 Status post transcatheter ao rtic valve replacement (TAVR) using bioprosthesis 09/04/2022 Aortic ectasia 05/18/2022 Atherosclerosis of [place] coronary arter y without angina pectoris 05/18/2022 Closed fracture of proximal end of left humerus 04/19/2022 Personal history of fall 04/19/2022 History of subdural hematoma 04/18/2022 Lumbar degenerative disc disease 022 Benign prostatic hyperplasia with urinar y frequency 12/19/2020 Chronic hyponatremia 12/19/2020 Generalized osteoarthritis of multiple s ites 09/02/2018 Mild ascending aorta dilatation 10/11/19 18 Mild aortic valve regurgitation 10/11/19 18 History of nonmelanoma skin cancer 09/05 Overview: BCC left chest 09/12 BCC right upper back BCC left quaker History of compression fracture of spine 08/27/2017 Overview: winter, T10, L5 - traumatic History of recurrent deep vein thrombosi s (DVT) 07/04/2017 Overview: right leg, recurrent Diastolic dysfunction 07/06/2016 Thrombocytopenia 06/05/2013 intermediate current use of anticoagulant t herapy 10/21/2012 Overview: ICD-10 update of inactive term Insomnia Chronic rhinitis documented as of this encounter (statuses as of 02/12/2023) Resolved Problems Problem Noted Date Resolved Date Hypertensive heart disease with heart failure 01/29/2023 Supraventricular tachycardia 05/18/202206/2022 Aortic stenosis 03/20/2022 05/18/2022 Severe aortic valve stenosis 05/20/201901/2023 Premature atrial contractions 10/10/2017 Heart failure, diastolic, due to HTN 03/16/2016 07/06/2016 Dry eyes 04/16/2013 08/27/2017 Anticoagulation management encounter 10/21/2012 09/12/2022 Deep vein thrombosis 07/04/2017 Basal cell carcinoma 09/05/2017 documented as of this encounter (statuses as of 02/12/2023) Immunizations Name Administration Dates Next Due COVID-19 mRNA, LNP-s, No Pre serve, 2-Dose Series (Lamppost) 08/02/2021,02/13/2021,07/28/2020,06/27 COVID-19, MRNA-LNP, 23-24, P F, 30 MCG/0.3 mL, 12 YRS AND ABOVE, IM (BettrLife-Comirnat) 02/12/2023 Covid-19, Mrna, Lnp-s, Pf, B ivalent, 30 Mcg, IM, 12 yrs and above (Lamppost) 10/11/2022,01/30/2022 Pneumococcal Conjugate Vacc, 13 Valent (Prevnar) [...] drink = 0.6 oz pur e alcohol) Food Insecurity Answer Date Recorded Within the past 12 months, y ou worried that your food would run out before you got money to buy more. Never true 10/26/2022 Within the past 12 months, t he food you bought just didn't last and you didn't have money to get more. Never true 10/26/2022 Sex Assigned at Date Recorded Male 09/02/2018 1:38 PM E DT Job Start Date Occupation Industry Not on [...] Plan of Treatment Upcoming Encounters Date Type Specialty Care Team Description 04/10/2023 Office Visit Hematology Oncology Edmar Meeks MD [address] [facility] [place] [address] 06/04/2023 Office Visit Family Medicine Jose Angel Weeks, [address] [place] [address] 07/30/2023 Office Visit Neurology Marquita Herrera PA-C [address] [facility] [place] [address] 10/28/2023 Cardiac Studies Cardiac Studies 12/09/2023 Office Visit Dermatology Jacky Arroyo MD [address] [facility] [place] [address] Scheduled Procedures Name Priority Associated Diagnoses Date/Ti [...] this encounter Medical Devices Implanted Type Area Neon Installer Device Identifier Shelf Expiration Date Model / Serial / Lot Cover Adilene Hole 17mm 421.554 - [id number] Implanted:Qty : 1 on 04/20/2022 by Prudencio Sung III, [place] at [place] [facility] [place] Left: Head SYNTHES MAXILLOFACIAL 421.554 / / Valve Tavr Jayson 29mm - [id number] Implanted:Qty : 1 on 09/05/2022 by Alexis Crenshaw MD at [facility] [facility] [place] [employer] SHAHBAZ [id number] 03/08/2023 [id number] / / documented as of this encounter Advance Directives Documents on File Type Date Recorded Patient Plant Science Professor Expl anation Advance Directives and Living Will [...] Advance Directives occurred with: Patient Care Teams Safe Expert Relationship Specialty Start Date End Date Jose Angel Weeks, [address] [place] [address] PCP - General Internal Medicine 07/25/21 documented as of this encounter
--- OUTSIDE RECORDS SUMMARY | 2023-03-13 08:42 | External Medical Summary | Summary of Care ---
Author Name Unknown Organization [facility] Address [address] [place] [address] Phone [phone] Care Team Providers Care Glue Mill Operator Name Role Phone Jose Angel Weeks DO Primary Care Provider [phone] Reason for Visit * Reason Comments Dosage Adjustment In Person (Anticoag Cl inic) Medication Management Encounter Details Date Type Department Care Team Description 01/29/2023 Pharmacy Family Practice [address] [phone] [place], Pharmacist [address] [address] Encounter for long-term (current) use of medications* Allergies Active Allergy Reactions Severity Noted Date Comments Ibuprofen 12/12/2013 Aspirin 07/03/2021 Other reaction(s): CANNOT TAKE DUE TO GASTRITIS Valdecoxib 03/03/2013 General ill feeling Celecoxib Other (Please comment) 08/27/2017 residential use caused heart-burn Codeine 12/12/2022 Other Reaction(s): [...] as of this encounter (statuses as of 01/29/2023) Medications Medication Sig Dispensed Refills Start Date End Date Status ALAVERT [address] one pill on tongue once daily as needed for allergies 30 Tab 5 10/21/2012 Active VITAMIN B-12 500 MCG PO TABSIndications: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 0 10/22/2012 Active fluticasone (FLONASE) 50 MCG/ACT nasal sprayIndications:[place] Milling Machine Operator natalia rhinitis USE TWO SPRAYS IN EACH NOSTRIL ONCE DAILY 16 g 4 10/27/2014 Active Additional Information Patient taking differently: 1 [place] Nasal Daily(AM), Reported on 09/13/2022 Vitamin D3 [...] 10 g 1 05/18/2022 Active Nystatin-Triamcinolon e 637279-3.1 UNIT/GM-% External Cream (Mycolog)Indications: Chronic dermatitis APPLY [...] the morning. 30 Tablet 5 12/18/2022 Active documented as of this encounter (statuses as of 01/29/2023) Active Problems Problem Noted Date Paroxysmal atrial fibrillation 3 Obstructive sleep apnea of adult 023 Status post transcatheter ao rtic valve replacement (TAVR) using bioprosthesis 09/04/2022 Aortic ectasia 05/18/2022 Atherosclerosis of [place] coronary arter y without angina pectoris 05/18/2022 [...] cheondoism History of compression fracture of spine 08/27/2017 Overview: Winter , T10, L5 - traumatic History of recurrent deep vein thrombosi s (DVT) 07/04/2017 Overview: right leg, recurrent Diastolic dysfunction 07/06/2016 Thrombocytopenia 06/05/2013 residential current use of anticoagulant t herapy 10/21/2012 Overview: ICD-10 update of inactive term Insomnia Chronic rhinitis documented as of this encounter (statuses as of 01/29/2023) Resolved Problems Problem Noted Date Resolved Date Hypertensive heart disease with heart failure 01/29/2023 Supraventricular tachycardia 05/18/202206/2022 Aortic stenosis 03/20/2022 05/18/2022 Severe aortic valve stenosis 05/20/201901/2023 Premature atrial contractions 10/10/2017 Heart failure, diastolic, due to HTN 03/16/2016 07/06/2016 Dry eyes 04/16/2013 08/27/2017 Anticoagulation management encounter 10/21/2012 09/12/2022 Deep vein thrombosis 07/04/2017 Basal cell carcinoma 09/05/2017 documented as of this encounter (statuses as of 01/29/2023) Immunizations Name Administration Dates Next Due COVID-19 mRNA, LNP-s, No Pre serve, 2-Dose Series (PaeDae) 08/02/2021,02/13/2021,07/28/2020,06/27 Covid-19, Mrna, Lnp-s, Pf, B ivalent, 30 Mcg, IM, 12 yrs and above (PaeDae) 10/11/2022,01/30/2022 Pneumococcal Conjugate Vacc, 13 Valent (Prevnar) [...] as of this encounter Progress Notes * Nadira Lebron [facility] - 01/29/2023 2:03 PM EDT Medication Therapy Disease Management [facility] - Medication Reconciliation Alec Peterson is an 82 year old being seen for medication reconciliation. Prescription insurance information: [employer] Do you have any other prescription coverage: No Preferred pharmacy: [facility] and [facility] for maintenance meds [x] Problem list reviewed [x] Allergies reviewed and updated if needed [x] Drug interaction check completed [x] HEDIS list addressed Immunizations: Facilitated Administration Of: Influenza. Updated COVID booster history. Medication Organization/Adherence: Has home care nurse or caregiver: no Patient uses a pill box? Yes, refill(s) completed by spouse When you are at home, how often do you miss doses of medications? Never Labs/Vitals/Risk Scores: The ASCVD Risk score (Payal DK, et al., 2019) failed to calculate for the following reasons: The 2019 ASCVD risk score is only valid for ages 40 to 79 The patient has a prior MT or stroke diagnosis BP Readings from Last 3 Encounters: 01/29/23 142/58 01/28/23 132/60 12/14/22 100/60 No results for input(s): HGBA1C in the last 64086 hours. Recent Labs Units 09/14/22 1357 09/05/22 0322 09/04/22 1648 ESTIMATED GLOMERULAR FILTRATION RATE - [facility] mL/min 88 89 89 Serum creatinine: 0.9 mg/dL 09/14/22 1357 Estimated creatinine clearance: 67.6 mL/min Assessment & Plan: Medication discrepancies identified: none Dose/frequency of medications appropriate for current renal function? yes Other medication problems identified: upcoming shoulder surgery on 03/11/23 - need to stop Eliquis Patient education provided: Discussed stopping eliquis for 2 days prior to procedure Referral pended for follow up management of: N/A Summary- Changes & Recommendations: Med rec completed with patient and . Flu shot administered. Repeat med rec visit in 1 year Nadira Lozoya [facility] Clinical Pharmacist - Deputy Sheriff Medication Therapy Management Clinic 01/29/2023, 2:03 PM documented in this encounter Plan of Treatment Upcoming Encounters Date Type Specialty Care Team Description 04/10/2023 Office Visit Hematology Oncology Edmar Meeks MD [address] [facility] [place] [facility] [address] 04/11/2023 Office Visit Sleep Disorders Heidi Colón DO [address] [facility] [place] [address] 06/04/2023 Office Visit Family Medicine Jose Angel Weeks DO [address] [facility] [place] [address] 07/30/2023 Office Visit Neurology Marquita Herrera PA-C [address] [facility] [place] [address] 10/28/2023 Cardiac Studies Cardiac Studies 12/09/2023 Office Visit Dermatology Jacky Arroyo MD [address] [facility] [place] [address] Scheduled Procedures Name Priority Associated Diagnoses Date/Ti me ESOPHAGOGASTRODUODENOSCOPY ( EGD), FLEXIBLE, TRANSORAL, DIAGNOSTIC Recall Gastric polyps COLONOSCOPY FLEXIBLE PROXIMAL DIAGNOSTIC Recall History of colonic polyps Health Maintenance Due Date Last Done Comments COVID-19 Vaccine (24 season) 2022 10/11/2022, 01/30/2022, 08/02/2021, Additional history exists Depression Screening 10/27/2023 10/26/2022 COLONOSCOPY-EVERY 5 YRS AGES 18-100 06/24/2025 06/24/2020, 09/18/2016, 09/18/2016 DTaP,Tdap,and Td Vaccines (3 - Td or Tdap) 03/16/2026 03/16/2016, 10/21/2004 Pneumococcal Vaccine: 65+ Years Completed 03/15/2015, 10/22/2011 Zoster Vaccines Completed 06/27/2018, 09/2017, 09/19/2017, Additional history exists COLONOSCOPY-EVERY 3 YRS AGES 18-100 Discontinued 06/24/2020, 09/18/2016, 09/18/2016 Influenza Vaccine (FLU shot) Completed 01/29/2023, 02/07/2022, 01/17/2021, Additional history exists GARDASIL-HPV IMMUNIZATION SERIES Aged Out No longer eligible based on patient's age to complete this topic Hepatitis B Aged Out No longer eligi ble based on patient's age to complete this topic MENINGOCOCCAL (MENACTRA/MENVEO) Aged Out No longer eligible based on patient's age to complete this topic documented as of this encounter Medical Devices Implanted Type Area Head Chopper Device Identifier Shelf Expiration Date Model / Serial / Lot Cover Tri[place] Hole 17mm 421.554 - [id number] Implanted:Qty : 1 on 04/20/2022 [place] Prudencio Sung III[place] [facility] [place] Head SYNTHES MAXILLOFACIAL 421.554 / / Valve Tavr Jayson 29mm - [id number] Implanted:Qty : 1 on 09/05/2022 by Alexis Crenshaw MD [place] [facility] [place] [employer]AH[employer] [id number] 03/08/2023 [id number] / / documented as of this encounter Visit Diagnoses Diagnosis Encounter for long-term (current) use of medications- Primary Encounter for long-term (current) use of other medications documented in this encounter Advance Directives Documents on File Type Date Recorded Patient Meter Tester Expl anation Advance Directives and Living Will [...] Advance Directives occurred with: Patient Care Teams Glue Mill Operator Relationship Specialty Start Date End Date Jose Angel Weeks, DO [address] [place] [address] PCP - General Internal Medicine 07/25/21 documented as of this encounter
--- OUTSIDE RECORDS SUMMARY | 2023-03-13 08:42 | External Medical Summary | Summary of Care ---
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 Name Role Phone Jose Angel Weeks DO Primary Care Provider [phone] Encounter Details Date Type Department Care Team Description 02/14/2023 Orders Only Family Practice 65 [facility] [address] [place] [phone] Jose Angel Weeks DO [address] [place] [address] Allergies Active Allergy Reactions Severity Noted Date Comments Ibuprofen 12/12/2013 Aspirin 07/03/2021 Other reaction(s): CANNOT TAKE DUE TO GASTRITIS Valdecoxib 03/03/2013 General ill feeling Celecoxib Other (Please comment) 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 0 10/22/2012 Active fluticasone (FLONASE) 50 MCG/ACT nasal sprayIndications:Faculty Instructor natalia rhinitis USE TWO SPRAYS IN EACH NOSTRIL ONCE DAILY 16 g 4 10/27/2014 Active Additional Information Patient taking differently: 1 [place] Nasal Daily(AM), Reported on 09/13/2022 Vitamin D3 [...] 10 g 1 05/18/2022 Active Nystatin-Triamcinolon e 138602-6.1 UNIT/GM-% External Cream (Mycolog)Indications: Chronic dermatitis APPLY [...] as of this encounter (statuses as of 02/14/2023) Active Problems Problem Noted Date Paroxysmal atrial fibrillation 3 Obstructive sleep apnea of adult 023 Status post transcatheter ao rtic valve replacement (TAVR) using bioprosthesis 09/04/2022 Aortic ectasia 05/18/2022 Atherosclerosis of [place] coronary arter y without angina pectoris 05/18/2022 [...] 09/12 BCC right upper back BCC left tenriism History of compression fracture of spine 08/27/2017 Overview: Winter , T10, L5 - traumatic History of recurrent deep vein thrombosi s (DVT) 07/04/2017 Overview: right leg, recurrent Diastolic dysfunction 07/06/2016 Thrombocytopenia 06/05/2013 jail current use of anticoagulant t herapy 10/21/2012 Overview: ICD-10 update of inactive term Insomnia Chronic rhinitis documented as of this encounter (statuses as of 02/14/2023) Resolved Problems Problem Noted Date Resolved Date Hypertensive heart disease with heart failure 01/29/2023 Supraventricular tachycardia 05/18/202206/2022 Aortic stenosis 03/20/2022 05/18/2022 Severe aortic valve stenosis 05/20/201901/2023 Premature atrial contractions 10/10/2017 Heart failure, diastolic, due to HTN 03/16/2016 07/06/2016 Dry eyes 04/16/2013 08/27/2017 Anticoagulation management encounter 10/21/2012 09/12/2022 Deep vein thrombosis 07/04/2017 Basal cell carcinoma 09/05/2017 documented as of this encounter (statuses as of 02/14/2023) Immunizations Name Administration Dates Next Due COVID-19 mRNA, LNP-s, No Pre serve, 2-Dose Series (ebridge) 08/02/2021,02/13/2021,07/28/2020,06/27 COVID-19, MRNA-LNP, 23-24, P F, 30 MCG/0.3 mL, 12 YRS AND ABOVE, IM ([facility]) 02/12/2023 Covid-19, Mrna, Lnp-s, Pf, B ivalent, 30 Mcg, IM, 12 yrs and above (ebridge) 10/11/2022,01/30/2022 Pneumococcal Conjugate Vacc, 13 Valent (Prevnar) [...] Visit Hematology Oncology Edmar Meeks MD [address] [facility] [place] [address] 06/04/2023 Office Visit Family Medicine Jose Angel Weeks, DO [address] [place] [address] 07/30/2023 Office Visit Neurology Marquita Herrera PA-C [address] [facility] [place] [address] 10/28/2023 Cardiac Studies Cardiac Studies 12/09/2023 Office Visit Dermatology Jacky Arroyo MD [address] [facility] [place] [address] Scheduled Procedures Name Priority Associated Diagnoses Date/Ti [...] this encounter Medical Devices Implanted Type Area Multimedia Technician Device Identifier Shelf Expiration Date Model / Serial / Lot Cover [place] Hole 17mm 421.554 - [id number] Implanted:Qty : 1 on 04/20/2022 by Prudencio Sung III, MD at [place] [facility] [place] Left: Head SYNTHES MAXILLOFACIAL 421.554 / / Valve Tavr Jayson 29mm - [id number] Implanted:Qty : 1 on 09/05/2022 by Alexis Crenshaw MD at [facility] [place] [employer] [id number] 03/08/2023 [id number] / / documented as of this encounter Procedures Procedure Name Priority Date/Time Associated Diagnosis Comments CHEMISTRY-OUTSIDE Routine 02/11/2023 documented in this encounter Results * (ABNORMAL) CHEMISTRY-OUTSIDE (02/11/2023) Not all results display below - see scan for full detail OUTSIDE LAB (SEE SCANNED REPORT) Comment:"SC[facility] INCLUDES [facility]" - PIT, INR, PTT, PTTR, BMP, CBC/DIFF, PLT CREATININE-OUTSID E LAB 0.91 0.6 - 1.4 MG/DL OUTSIDE LAB (SEE SCANNED REPORT) EGFR-OUTSIDE LAB 79.3 NO RANGE ML/MIN/1.7 3M2 OUTSIDE LAB (SEE SCANNED REPORT) POTASSIUM-OUTSIDE LAB 4.8 3.5 - 5.1 MMOL/L OUTSIDE LAB (SEE SCANNED REPORT) GLUCOSE-OUTSIDE LAB 111(A) 70 - 99 MG/DL OUTSIDE LAB (SEE SCANNED REPORT) HOURS FASTING OUTSID E LAB (SEE SCANNED REPORT) TRIGLYCERIDES-OUT SIDE LAB OUTSIDE LAB (SEE SCANNED REPORT) CHOLESTEROL-OUTSI DE LAB OUTSIDE LAB (SEE SCANNED REPORT) HDL-OUTSIDE LAB OUTS JACKIE LAB (SEE SCANNED REPORT) CHOL/HDL RATIO-OUTSIDE LAB OUTSIDE LA B (SEE SCANNED REPORT) LDL (CALCULATED)-OUTS [facility]IE LAB OUTSIDE LAB (SEE SCANNED REPORT) LDL (DIRECT MEASURE)-OUTSIDE LAB OUTSIDE LAB (SEE SCANNED REPORT) HEMOGLOBIN, I3D-SOZCNOX LAB OUTSIDE LAB (SEE SCANNED REPORT) PHOSPHORUS-OUTSID E LAB OUTSIDE LAB (SEE SCANNED REPORT) PTH-OUTSIDE LAB OUTS JACKIE LAB (SEE SCANNED REPORT) MICROALBUMIN RATIO-OUTSIDE LAB OUTSIDE LA B (SEE SCANNED REPORT) PROTEIN, UA-OUTSIDE LAB OUTSIDE LAB (SEE SCANNED REPORT) HEMOGLOBIN-OUTSID E LAB 12.2(A) 14.0 - 18.0 G/DL OUTSIDE LAB (SEE SCANNED REPORT) 02/11/2023 Kameron Moore DO LABORATORY OUTSIDE LAB (SEE SCANNED REPORT) documented in this encounter Advance Directives Documents on File Type Date Recorded Patient Hoop Coiler Expl anation Advance Directives and Living Will [...] Advance Directives occurred with: Patient Care Teams Shop Laborer Relationship Specialty Start Date End Date Jose Angel Weeks DO [address] [place] [address] PCP - General Internal Medicine 07/25/21 documented as of this encounter
--- OUTSIDE RECORDS SUMMARY | 2023-03-13 08:42 | External Medical Summary | Summary of Care ---
Author Name Unknown Organization [facility] Address [address] [place] [address] Phone [phone] Care Team Providers Care Tube Dispatcher Name Role Phone Jose Angel Weeks DO Primary Care Provider [phone] Reason for Visit * Reason Onset Date Comments Medication Administration 01/29/2023 Flu an d/or Pneumo Inj Encounter Details Date Type Department Care Team Description 01/29/2023 Office Visit Family Practice [facility] [address] [place] [id number] Jose Angel Weeks DO [address] [place] [address] Paroxysmal atrial fibrillation (HCC)*; Atherosclerosis of [place] coronary artery of [place] heart without angina pectoris; Status post transcatheter aortic valve replacement (TAVR) using bioprosthesis; Obstructive sleep apnea of adult; Mild ascending aorta dilatation (HCC); History of recurrent deep vein thrombosis (DVT); Diastolic dysfunction; Benign prostatic hyperplasia with urinary frequency; Chronic hyponatremia; Lumbar degenerative disc disease; Thrombocytopenia (HCC); History of subdural hematoma; Need for prophylactic vaccination and inoculation against influenza Allergies Active Allergy Reactions Severity Noted Date Comments Ibuprofen 12/12/2013 Aspirin 07/03/2021 Other reaction(s): CANNOT TAKE DUE TO GASTRITIS Valdecoxib 03/03/2013 General ill feeling Celecoxib Other (Please comment) 08/27/2017 half-way use caused heart-burn Codeine 12/12/2022 Other Reaction(s): [...] 10/21/2012 Active VITAMIN B-12 500 MCG PO TABSIndications: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 0 10/22/2012 Active fluticasone (FLONASE) 50 MCG/ACT nasal sprayIndications:Chr onic rhinitis USE TWO SPRAYS IN EACH NOSTRIL ONCE DAILY 16 g 4 10/27/2014 Active Additional Information Patient taking differently: 1 Winslow Nasal Daily(AM), Reported on 09/13/2022 Vitamin D3 10 MCG (400 UNIT) Oral Tablet (cholecalciferol) Take 1 Tablet by mouth in the morning. 0 Active Artificial Tears 0.1-0.3 % Ophthalmic Solution (Dextran 70-Hypromellose) Instill into eye at bedtime. 0 Active Konsyl Original Formula 100 % Oral Powder (Psyllium)Indication s:Drug-induced constipation Take two teaspoons by mouth twice daily (patient home med) 660 g 5 05/18/2022 Active Xiidra 5 % Ophthalmic Solution (Lifitegrast)Indicat ions:Dry eye Instill 1 Drop into eye 2 times a day. After breakfast and after lunch 60 Each 5 05/18/2022 Active Systane Overnight Therapy 0.3 % Ophthalmic Gel (Hydroxypropyl Methylcellulose (Hypromellose))Indic ations:Dry eye Instill 1 Drop into both eyes at bedtime. 10 g 1 05/18/2022 Active Nystatin-Triamcinolo ne 223188-9.1 UNIT/GM-% External Cream (Mycolog)Indications :Chronic dermatitis APPLY TOPICALLY NEEDED DIRECTED BY PHYSICIAN, uses in groin 30 g 2 05/30/2022 Active Metoprolol Tartrate 50 MG Oral Tablet (Lopressor)Indicatio ns:Paroxysmal atrial fibrillation (HCC) Take 1 Tablet by [...] TIMES A DAY 180 Each 4 09/18/2022 09/18/19 24 Active Apixaban 5 MG Oral Tablet (Eliquis)Indications :History of recurrent deep vein thrombosis (DVT) Take 1 Tablet by mouth in the morning and 1 Tablet before bedtime. 60 Tablet 5 12/18/2022 Active Folic Acid 1 MG Oral Tablet Take 1 Tablet by mouth in the morning. 30 Tablet 5 12/18/2022 Active Mupirocin Calcium 2 % External Cream Apply topically to affected area 3 times a day. Opening area on face. 30 g 3 01/29/2023 Active Mupirocin Calcium 2 % External Cream Apply topically to affected area 3 times a day . Opening area on face. 45 g 3 07/25/2021 01/30/20 23 Discontinu ed(Refill) documented as of this encounter (statuses as of 01/29/2023) Active Problems Problem Noted Date Paroxysmal atrial fibrillation Obstructive sleep apnea of adult 023 Status post transcatheter ao rtic valve replacement (TAVR) using bioprosthesis 09/04/2022 Aortic ectasia 05/18/2022 Atherosclerosis of [place] coronary arter y without angina pectoris 05/18/2022 Closed fracture of proximal end of left humerus 04/19/2022 Personal history of fall 04/19/2022 History of subdural hematoma 04/18/2022 Lumbar degenerative disc disease 022 Benign prostatic hyperplasia with urinar y frequency 12/19/2020 Chronic hyponatremia 12/19/2020 Generalized osteoarthritis of multiple s ites 09/02/2018 Mild ascending aorta dilatation 10/11/19 Mild aortic valve regurgitation 10/11/19 18 History of nonmelanoma skin cancer 09/05 Overview: BCC left chest 09/12 BCC right upper back BCC left anglican History of compression fracture of spine 08/27/2017 Overview: Winter , T10, L5 - traumatic History of recurrent deep vein thrombosi s (DVT) 07/04/2017 Overview: right leg, recurrent Diastolic dysfunction 07/06/2016 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 10/21/2012 [...] mRNA, LNP-s, No Pre serve, 2-Dose Series (Pixonic) 08/02/2021,02/13/2021,07/28/2020,06/27 Covid-19, Mrna, Lnp-s, Pf, B ivalent, [...] on file documented as of this encounter Last Filed Vital Signs Vital Sign Reading Time Taken Comments Blood Pressure 142/58 01/29/2023 1:49 PM EDT Pulse 59 01/29/2023 1:49 PM EDT Temperature 36.4 C (97.5 F) 01/29/2023 1:49 PM ED T Respiratory Rate - - Oxygen Saturation 99% 01/29/2023 1:49 PM EDT Inhaled Oxygen Concentration - - Weight 81.2 kg (179 lb 1.6 oz) 01/29/2023 1:49 P M EDT Height 177.8 cm (5' 10") 01/29/2023 1:49 PM EDT Body Mass Index 25.7 01/29/2023 1:49 PM EDT documented in this encounter Functional Status Functional Status Response [...] No 09/04/2022 documented as of this encounter Patient Instructions * Patient Instructions* Nadira Lebron RPh - 01/29/2023 1:48 PM EDT ~~PATIENT INSTRUCTIONS FOR FLU SHOT~~ Possible side effects of influenza vaccine, (flu shot), are usually mild and include: 1. Soreness or redness at injection site 2. Low grade fever 3. Body aches You may use Tylenol/Acetaminophen as needed for these symptoms. LET YOUR DOCTOR KNOW IMMEDIATELY IF YOU HAVE DIFFICULTY BREATHING OR SWALLOWING, EXPERIENCE ITCHINGOF FEET OR HANDS, HAVE SWELLING OF EYES, FACE OR INSIDE OF NOSE. documented in this encounter Progress Notes * Jose Angel Hortensia Micky, DO - 01/29/2023 2:26 PM EDT SUBJECTIVE: Alec Peterson is a 82 year old male. Chief Complaint Patient presents with Medication Administration Flu and/or Pneumo Inj HPI: Patient is an 82 year old male with a history of recurrent right lower extremity DVT in 2003, severe aortic valve stenosis treated with TAVR on 09/04/2022, atrial fibrillation, thrombocytopenia,left humerus fracture, mild ascending aortic enlargement, lumbar degenerative disc disease, posttraumatic vertebral compression fracture, BPH, CHF, traumatic SDH, and evacuation of SDH in 03/2022 that is seen for follow up. He is scheduled for left shoulder replacement on 2022. Patient is feeling well. No chest pain or shortness of breath are present. Weight is stable and appetite is good.Left shoulder pain is present at all times. 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 Z79.01 Thrombocytopenia (HCC) D69.6 Diastolic dysfunction I51.89 History of recurrent deep vein thrombosis (DVT) Z86.718 History of compression fracture of spine Z87.81 History of nonmelanoma skin cancer Z85.828 Mild ascending aorta dilatation (HCC) I77.810 Mild aortic valve regurgitation I35.1 Generalized osteoarthritis of multiple sites M15.9 Benign prostatic hyperplasia with urinary frequency N40.1, R35.0 Chronic hyponatremia E87.1 Lumbar degenerative disc disease M51.36 History of subdural hematoma Z86.79 Closed fracture of proximal end of left humerus S42.202A Personal history of fall Z91.81 Aortic ectasia (HCC) I77.819 Atherosclerosis of ven[place] co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 angina pectoris I25.10 Status post transcatheter aortic valve replacement (TAVR) using bioprosthesis Z95.3 Paroxysmal atrial fibrillation (HCC) I48.0 Obstructive sleep apnea of adult G47.33 Current Outpatient Medications Medication Sig Dispense Refill ALAVERT [address] one pill on tongue once daily as needed for allergies 30 Tab 5 VITAMIN B-12 500 MCG PO TABS Take 1 Tablet by mouth in the morning. fluticasone (FLONASE) 50 MCG/ACT nasal spray USE TWO SPRAYS IN EACH NOSTRIL ONCE DAILY (Patient taking differently: Administer 1 Winslow into nostril in the morning.) 16 g 4 Vitamin D3 10 MCG (400 UNIT) Oral Tablet (cholecalciferol) Take 1 Tablet by mouth in the morning. Artificial Tears 0.1-0.3 % Ophthalmic Solution (Dextran 70-Hypromellose) Instill into eye at bedtime. Konsyl Original Formula 100 % Oral Powder (Psyllium) Take two teaspoons by mouth twice daily (patient home med) 660 g 5 Systane Overnight Therapy 0.3 % Ophthalmic Gel (Hydroxypropyl Methylcellulose (Hypromellose)) Instill 1 Drop into both eyes at bedtime. 10 g 1 Metoprolol Tartrate 50 MG Oral Tablet (Lopressor) [...] 5 Mupirocin Calcium 2 % External Cream Apply topically to affected area 3 times a day. Opening area on face. 30 g 3 Xiidra 5 % Ophthalmic Solution (Lifitegrast) Instill 1 Drop into eye 2 times a day. After breakfastand after lunch 60 Each 5 Nystatin-Triamcinolone 069706-0.1 UNIT/GM-% External Cream (Mycolog) APPLY TOPICALLY NEEDED DIRECTED BY PHYSICIAN, uses in groin 30 g 2 No current facility-administered medications for this visit. The patient's medication list was reviewed and updated as needed. Past Medical History: Diagnosis Date Basal cell carcinoma Benign prostatic hyperplasia with urinary frequency 12/19/2020 Chronic rhinitis Deep vein thrombosis (HCC) right leg, recurrent Diastolic dysfunction 07/06/2016 Dry eyes 04/16/2013 Heart failure, diastolic, due to HTN (HCC) 03/16/2016 History of DVT in adulthood 07/04/2017 right leg, recurrent Insomnia Lumbar degenerative disc disease 07/25/2021 Nonrheumatic aortic valve stenosis 05/20/2019 Obstructive sleep apnea of adult 01/29/2023 Paroxysmal atrial fibrillation (HCC) 01/29/2023 PSVT (paroxysmal supraventricular tachycardia) from Claritin-d Past Surgical History: Procedure Laterality Date COLONOSCOPY, DIAGNOSTIC (RECTUM) 09/18/2016 proximal hyperplastic polyps, diverticulosis, repeat 3 yrs/COLONOSCOPY FLEXIBLE PROXIMAL DIAGNOSTICperformed by Stanley Kirk MD at ENDOSCOPY [facility] COLONOSCOPY, DIAGNOSTIC (RECTUM) 06/24/2020 normal, repeat 5 yrs / [facility] CORONARY ANGIOGRAPHY W/LEFT HEART CATH Right 03/20/2022 CORONARY ANGIOGRAPHY W/LEFT HEART CATH performed by Javier De Paz MD at [facility] [place] EGD, FLEXIBLE, DIAGNOSTIC 06/24/2020 hyperplastic gastric polyps, gastritis, duodenitis, esophagitis, repeat 4-6 mo / [facility] EYELID LINING SURGERY NEC 2013 eyelid plugs LAPAROSCOPY,EXPLOR COMMON DUCT 06/28/2016 06/28/2016 laparoscopioc cholecystectomy wth intraoperative cholangiogram [facility] Thomas Dunn OPEN SKULL FOR REMOVAL OF HEMATOMA Left 04/20/2022 CRANIOTOMY EVACUATION OF SUBDURAL OR EXTRADURAL HEMATOMA SUPRATENTORIAL performed by Prudencio Sung III, MD at [place] [facility] [place] PROCEDURE - GENERAL Right 07/03/2021 Right inguinal hernia repair by Dr Bean Caro REMOVE CATARACT, INSERT LENS PROSTH Bilateral REPAIR WRIST BONE FX, EACH BONE Left 2008 REPLACE AORTIC VALVE, PERCUTANEOUS FEMORAL Bilateral 09/04/2022 REPLACE AORTIC VALVE, PERCUTANEOUS FEMORAL performed by Alexis Crenshaw MD at [facility] [place] REPLACE AORTIC VALVE, PERCUTANEOUS FEMORAL Bilateral 09/04/2022 REPLACE AORTIC VALVE, PERCUTANEOUS FEMORAL performed by Chris Mayen MD at [facility] [place] SHOULDER ARTHROSCOPY SURGERY Bilateral acriomoplasty Review of patient's allergies indicates: Allergen Reactions Lovenox [Enoxaparin] Other (Please comment) Affected platelet count Advil [Ibuprofen] Aspirin Other reaction(s): CANNOT TAKE DUE TO GASTRITIS Bextra [Valdecoxib] General ill feeling Celebrex [Celecoxib] Other (Please comment) 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 Respiratory: Negative for cough, shortness of breath and wheezing. Cardiovascular: Negative for chest pain, palpitations and leg swelling. Gastrointestinal: Negative for abdominal pain, blood in stool, constipation, diarrhea, nausea and vomiting. Genitourinary: Negative for dysuria and hematuria. Musculoskeletal: Negative for back pain. Left shoulder pain is present at all times Psychiatric/Behavioral: Positive for sleep disturbance. Negative for confusion and decreased concentration. OBJECTIVE: BP 142/58 (BP Site: Right Arm, BP Position: Sitting, BP Cuff Size: Regular) | Pulse 59 | Temp 36.4 C (97.5 F) | Ht 1.778 m (5' 10") | Wt 81.2 kg (179 lb 1.6 oz) | SpO2 99% | BMI 25.70 kg/m | BSA 2 m Physical Exam Vitals and nursing note reviewed. Constitutional: General: He is not in acute distress. Appearance: Normal appearance. He is not toxic-appearing. HENT: Head: Normocephalic and atraumatic. Cardiovascular: Rate and Rhythm: Normal rate. Rhythm irregular. Heart sounds: Normal heart sounds. No murmur heard. No gallop. Pulmonary: Effort: Pulmonary effort is normal. Breath sounds: Normal breath sounds. No wheezing, rhonchi or rales. Abdominal: General: Bowel sounds are normal. There is no distension. Palpations: Abdomen is soft. Tenderness: There is no abdominal tenderness. Musculoskeletal: Right lower leg: No edema. Left lower leg: No edema. Neurological: Mental Status: He is alert and oriented to person, place, and time. Mental status is at baseline. Motor: No weakness. Gait: Gait normal. Psychiatric: Mood and Affect: Mood normal. Behavior: Behavior normal. Thought Content: Thought content normal. Judgment: Judgment normal. PLAN AND ASSESSMENT: Paroxysmal atrial fibrillation (HCC) (Primary) Continue Apixaban and Metoprolol per Cardiology Preoperative labs, ECG, and CXR as scheduled Atherosclerosis of ven[place]ie coronary artery of ven[place]ie heart without angina pectoris Continue Metoprolol Status post transcatheter aortic valve replacement (TAVR) using bioprosthesis Obstructive sleep apnea of adult Patient to start CPAP this week Mild ascending aorta dilatation (HCC) Repeat Echo in 10/2023 History of recurrent deep vein thrombosis (DVT) Continue Apixaban Diastolic dysfunction Benign prostatic hyperplasia with urinary frequency Chronic hyponatremia Lumbar degenerative disc disease Thrombocytopenia (HCC) History of subdural hematoma Need for prophylactic vaccination and inoculation against influenza - INFLUENZA VACC, QUAD, HIGH DOSE (FLUZONE HD) Other orders - Mupirocin Calcium 2 % External Cream; Apply topically to affected area 3 times a day. Opening area on face. Follow Up: Return in about 4 months (around 06/01/2023), or if symptoms worsen or fail to improve. Jose Angel Weeks DO 2:26 PM 01/29/2023 * Nadira Lebron RPh - 01/29/2023 1:38 PM EDT Shoulder surgery 03/11 - L shoulder at [facility] with Kameron Moore. Will keep him 1 night. PRE - ADMINISTRATION DOCUMENTATION Are you experiencing any cold symptoms or fever? No Have you had Guillain-Everett Syndrome (an illness that causes paralysis) within the last 6 weeks? No Have you had the flu shot in the past? YES Have you ever had a reaction to the flu shot? No Nadira Lozoya RPh, 01/29/2023 1:48 PM Immunization Administration Documentation Time Out Procedure Performed: Yes Patient Identified (Ask Name/Date of ): Yes Does the patient have a fever greater than 101 degrees today? No Patient allergic to latex? No VFC Stock: No Immunization(s) verified: Yes, Immunization Name: Flu, VIS Sheet(s) given: Yes Verified Side and Site: Yes Verified Shot(s) with Parent(s)/Patient: Yes documented in this encounter Plan of Treatment Upcoming Encounters Date Type Specialty Care Team Description 04/10/2023 Office Visit Hematology Oncology Edmar Meeks MD [address] [place] [address] 04/11/2023 Office Visit Sleep Disorders Heidi Colón, DO [address] [place] [address] 06/04/2023 Office Visit Family Medicine Jose Angel Weeks, DO [address] [place] [address] 07/30/2023 Office Visit Neurology Marquita Herrera PA-C [address] [place] [address] 10/28/2023 Cardiac Studies Cardiac Studies 12/09/2023 Office Visit Dermatology Jacky Arroyo MD [address] [place] [address] Scheduled Procedures Name Priority Associated Diagnoses Date/Ti me ESOPHAGOGASTRODUODENOSCOPY ( EGD), FLEXIBLE, TRANSORAL, DIAGNOSTIC Recall Gastric polyps COLONOSCOPY FLEXIBLE PROXIMAL DIAGNOSTIC Recall History of colonic polyps Health Maintenance Due Date Last Done Comments COVID-19 Vaccine ( season) 2022 10/11/2022, 01/30/2022, 08/02/2021, Additional history [...] this encounter Medical Devices Implanted Type Area Timber Framer Helper Device Identifier Shelf Expiration Date Model / Serial / Lot Cover [place] 17mm 421.554 - [id number] Implanted:Qty : 1 on 04/20/2022 by Prudencio Sung III, MD at [place] [facility] [place] Left: Head [employer] [id number] / / Valve Tavr Jayson 29mm - [id number] Implanted:Qty : 1 on 09/05/2022 by Alexis Crenshaw MD at [facility] [place] [employer] [id number] 03/08/2023 [id number] / / documented as of this encounter Visit Diagnoses Diagnosis Paroxysmal atrial fibrillation (HCC)- Primary Atrial fibrillation Atherosclerosis of [place] coronary artery of [place] heart without angina pectoris Status post transcatheter aortic valve replacement (TAVR) using bioprosthesis Obstructive sleep apnea of adult Obstructive sleep apnea (adult) (pediatric) Mild ascending aorta dilatation (HCC) Thoracic aortic ectasia History of recurrent deep vein thrombosis (DVT) Diastolic dysfunction Heart disease, unspecified Benign prostatic hyperplasia with urinary frequency Chronic hyponatremia Hyposmolality and/or hyponatremia Lumbar degenerative disc disease Degeneration of lumbar or lumbosacral intervertebral disc Thrombocytopenia (HCC) Thrombocytopenia, unspecified History of subdural hematoma Need for prophylactic vaccination and inoculation against influenza documented in this encounter Advance Directives Documents on File Type Date Recorded 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
--- OUTSIDE RECORDS SUMMARY | 2023-03-13 08:43 | External Medical Summary | Summary of Care ---
Author Name Unknown Organization [facility] Address [address] [place] [address] Phone [phone] Care Team Providers Care Art Manager Name Role Phone Jose Angel Weeks DO Primary Care Provider [phone] Reason for Visit * Reason Comments Follow Up Encounter Details Date Type Department Care Team Description 12/14/2022 Office Visit Sleep Disorders [facility] [address] [place] [id number] Heidi Colón DO [address] [place] [address] Obstructive sleep apnea*; Nocturnal hypoxemia; Fatigue, unspecified type; Hypertensive heart disease with heart failure (HCC) Allergies Active Allergy Reactions Severity Noted Date Comments Ibuprofen 12/12/2013 Aspirin 07/03/2021 Other reaction(s): CANNOT TAKE DUE TO GASTRITIS Valdecoxib 03/03/2013 General ill feeling Celecoxib Other (Please comment) 08/27/2017 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 0 Active Mupirocin Calcium 2 % External Cream Apply topically to affected area 3 times a day . Opening area on face. 45 g 3 07/25/2021 Active Artificial Tears 0.1-0.3 % Ophthalmic Solution [...] 10 g 1 05/18/2022 Active Nystatin-Triamcinolo ne 701066-3.1 UNIT/GM-% External Cream (Mycolog)Indications :Chronic dermatitis APPLY [...] 180 Each 4 09/18/2022 09/18/19 24 Active Folic Acid 1 MG Oral Tablet Take 1 Tablet by mouth in the morning. 30 Tablet 5 06/21/2022 12/19/19 23 Discontinu ed(Refill) Furosemide 20 MG Oral Tablet (Lasix)Indications:H ypertensive heart disease with heart failure (HCC) Take 1 Tablet by mouth daily as needed (leg edema) for up to 30 doses. One tablet five days a week. 30 Tablet 3 09/05/2022 12/15/19 23 Discontinu ed(Medicat ion List Clean Up) Apixaban 5 MG Oral Tablet (Eliquis)Indications :History of recurrent deep vein thrombosis (DVT) Take 1 Tablet by mouth in the morning and 1 Tablet before bedtime. Do not start before September 07, 2022. 60 Tablet 5 09/07/2022 12/19/19 23 Discontinu ed(Refill) Amoxicillin 500 MG Oral Capsule (Amoxil)Indications: SBE (subacute bacterial endocarditis) prophylaxis candidate 4 tablets 30-60 minutes before dental work 4 Capsule 2 09/25/2022 12/15/19 Discontinu ed(Medicat ion List Clean Up) documented as of this encounter (statuses as of 01/10/2023) Active Problems Problem Noted Date Status post transcatheter ao rtic valve replacement (TAVR) using bioprosthesis 09/04/2022 Hypertensive heart disease with heart fa ilure 05/18/2022 Aortic ectasia 05/18/2022 Supraventricular tachycardia 05/18/2022 Atherosclerosis of la posta coronary arter y without angina pectoris 05/18/2022 Closed fracture of proximal end of left humerus 04/19/2022 Personal history of fall 04/19/2022 Subdural hematoma 04/18/2022 Lumbar degenerative disc disease 022 Benign prostatic hyperplasia with urinar y frequency 12/19/2020 Chronic hyponatremia 12/19/2020 Generalized osteoarthritis of multiple s ites 09/02/2018 Mild ascending aorta dilatation 10/11/19 Mild aortic valve regurgitation 10/11/19 18 History of nonmelanoma skin cancer 09/05 Overview: BCC left chest 09/12 BCC right upper back BCC left samaritan History of compression fracture of spine 08/27/2017 Overview: Winter , T10, L5 - traumatic History of recurrent deep vein thrombosi s (DVT) 07/04/2017 Overview: right leg, recurrent Diastolic dysfunction 07/06/2016 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 10/21/2012 Overview: ICD-10 update of inactive term Insomnia Chronic rhinitis documented as of this encounter (statuses as of 01/10/2023) Resolved Problems Problem Noted Date Resolved Date Aortic stenosis 03/20/2022 05/18/2022 Severe aortic valve stenosis 05/20/201901/2023 Premature atrial contractions 10/10/2017 Heart failure, diastolic, due to HTN 03/16/2016 07/06/2016 Thrombocytopenia 06/05/2013 06/06/2022 Dry eyes 04/16/2013 08/27/2017 Anticoagulation management encounter 10/21/2012 09/12/2022 Deep vein thrombosis 07/04/2017 Basal cell carcinoma 09/05/2017 documented as of this encounter (statuses as of 01/10/2023) Immunizations Name Administration Dates Next Due COVID-19 mRNA, LNP-s, No Pre serve, 2-Dose Series (Antengo) 08/02/2021,02/13/2021,07/28/2020,06/27 Covid-19, Mrna, Lnp-s, Pf, B ivalent, 30 Mcg, IM, 12 yrs and above (Pfizer) 01/30/2022 Pneumococcal Conjugate Vacc, 13 Valent (Prevnar) 03/15/2015 Pneumococcal Polysaccharide PPV23 (Pneumovax) 10/22/2011 Seasonal Influenza, PF, 6 mo ns & Above, IM , (Flulaval) 01/29/2020,01/10/2018 Seasonal Influenza, Quadriva lent Hd (Fluzone [...] Passive Smoke Exposure: Past Smokeless Tobacco: Never Tobacco Cessation:Counseling Given: Not Answered Alcohol Use Standard Drinks/Week Comments No 0 [...] Sign Reading Time Taken Comments Blood Pressure 100/60 12/14/2022 11:23 AM EDT Pulse 62 12/14/2022 11:23 AM EDT Temperature - - Respiratory Rate 16 12/14/2022 11:23 AM EDT Oxygen Saturation 98% 12/14/2022 11:23 AM EDT Inhaled Oxygen Concentration - - Weight 78.9 kg (174 lb) 12/14/2022 11:23 AM EDT Height 177.8 cm (5' 10") 12/14/2022 11:23 AM EDT Body Mass Index 24.97 12/14/2022 11:23 AM EDT documented in this encounter Functional Status [...] this encounter Patient Instructions * Patient Instructions* Heidi Colón, DO - 12/14/2022 12:26 PM EDT New CPAP: - The medical supply [employer] will contact you to schedule set-up. (You may also hear from a group called [employer], which coordinates with the local medical supply companies.) - They will fit you with a mask and provide the machine and all supplies, and go over how to use, clean, etc. You will need to clean and replace supplies as directed by the medical supply [employer]. - Once you have CPAP, use it whenever sleeping. Minimum usage requirements for insurance purposes are at least 4 hours per day, on at least 70% of days. Per Medicare criteria, you need to meet that for a 30-day period within the first 90 days that you have the CPAP. - We will plan a follow up appointment for at least 30 days after you start using CPAP. We will seehow you are doing with the CPAP, and review data from your machine that tells us how long you are using it each day, as well as how well it is working to treat your sleep apnea (the CPAP machine keeps track of the number of pauses in breathing while you are wearing it). Depending on how things lookat that point, we may adjust settings to help the CPAP be more comfortable or work the best for you. Additional Recommendations for sleep apnea: - Plan to get enough sleep at night (most adults do best with 7-8 hours a night), and use your CPAPwhenever sleeping. - Exercise daily. Aim for 30 minutes per day of moderate-intensity exercise (enough to get your heart rate up and break out into a light sweat). - Losing weight can reduce the severity of sleep apnea, and may reduce the pressure of CPAP that isneeded to treat your sleep apnea. - Avoid substances that suppress the central nervous system or the drive to breathe. This includes opiate pain medicines and excessive alcohol. - Don't drive when you are sleepy/drowsy! If you become drowsy while driving, date puller, take a quick nap or get some caffeine, or get someone else to drive. documented in this encounter Progress Notes * Heidi Colón DO - 12/14/2022 11:52 AM EDT Sleep Medicine Follow-Up HISTORY: Alec Peterson is a 82 year old male seen today for follow up after completing sleep testing. Patient was seen on 08/27/22 with snoring, witnessed apnea. [place] was 6, FOSQ 31. Patient reports no significant change in sleep or overall health in the interim. On the night of the study, he had a typical night's sleep with 5 awakenings (has nocturia). He did have his TAVR. 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 He is sleeping with back and legs elevated ([facility]Number bed). Home sleep apnea test: Date: 11/30/22 TRT: 608.2 minutes JOAN: 44.1 /hour SpO2 josse: 70% Time SpO2 <89%: 69.6 minutes Patient Active Problem List Diagnosis Code Insomnia G47.00 Chronic rhinitis J31.0 residential current use of anticoagulant therapy Z79.01 Diastolic dysfunction I51.89 History of recurrent deep vein thrombosis (DVT) Z86.718 History of compression fracture of spine Z87.81 History of nonmelanoma skin cancer Z85.828 Mild ascending aorta dilatation (HCC) I77.810 Mild aortic valve regurgitation I35.1 Generalized osteoarthritis of multiple sites M15.9 Benign prostatic hyperplasia with urinary frequency N40.1, R35.0 Chronic hyponatremia E87.1 Lumbar degenerative disc disease M51.36 Subdural hematoma (HCC) S06.5XAA Closed fracture of proximal end of left humerus S42.202A Personal history of fall Z91.81 Hypertensive heart disease with heart failure (HCC) I11.0 Aortic ectasia (HCC) I77.819 Supraventricular tachycardia (HCC) I47.1 Atherosclerosis of la posta co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 angina pectoris I25.10 Status post transcatheter aortic valve replacement (TAVR) using bioprosthesis Z95.3 Outpatient Medications Marked as Taking for the 12/14/22 encounter (Office Visit) with Heidi Colón, DO Medication Sig Xiidra 5 % Ophthalmic Solution INSTILL ONE DROP IN EACH EYE TWO TIMES A DAY Acetaminophen 500 MG Oral Tablet (Tylenol) Take 2 Tablets by mouth every 8 hours as needed for Pain, Mild or Pain, Moderate. Apixaban 5 MG Oral Tablet (Eliquis) Take 1 Tablet by mouth in the morning and 1 Tablet before bedtime. Do not start before September 07, 2022. Folic Acid 1 MG Oral Tablet Take 1 Tablet by mouth in the morning. Metoprolol Tartrate 50 MG Oral Tablet (Lopressor) Take 1 Tablet by mouth in the morning and 1 Tablet before bedtime. Nystatin-Triamcinolone 041324-2.1 UNIT/GM-% External Cream (Mycolog) APPLY TOPICALLY NEEDED DIRECTED BY PHYSICIAN, uses in groin Konsyl Original Formula 100 % Oral Powder (Psyllium) Take two teaspoons by mouth twice daily (patient home med) Systane Overnight Therapy 0.3 % Ophthalmic Gel (Hydroxypropyl Methylcellulose (Hypromellose)) Instill 1 Drop into both eyes at bedtime. Xiidra 5 % Ophthalmic Solution (Lifitegrast) Instill 1 Drop into eye 2 times a day. After breakfastand after lunch Artificial Tears 0.1-0.3 % Ophthalmic Solution (Dextran 70-Hypromellose) Instill into eye at bedtime. Mupirocin Calcium 2 % External Cream Apply topically to affected area 3 times a day . Opening area on face. Vitamin D3 10 MCG (400 UNIT) Oral Tablet (cholecalciferol) Take 1 Tablet by mouth in the morning. fluticasone (FLONASE) 50 MCG/ACT nasal spray USE TWO SPRAYS IN EACH NOSTRIL ONCE DAILY (Patient taking differently: Administer 1 [place] into nostril in the morning.) VITAMIN B-12 500 MCG PO TABS Take 1 Tablet by mouth in the morning. ALAVERT [address] one pill on tongue once daily as needed for allergies PHYSICAL EXAM: BP 100/60 | Pulse 62 | Resp 16 | Ht 1.778 m (5' 10") | Wt 78.9 kg (174 lb) | SpO2 98% | BMI 24.97 kg/m | BSA 1.97 m General: alert, no acute distress Head: NC/AT Lungs: normal respiratory effort Neuro: speech clear and appropriate ASSESSMENT/PLAN: Obstructive sleep apnea - severe by AHI criteria, associated with nocturnal hypoxemia - Will begin autotitrating CPAP at 5-20 cmH2O. DME: patient prefers [facility]. CPAP machine, supplies, and mask fitting ordered. - Patient was encouraged to use CPAP whenever sleeping, including with any naps. Minimum usage requirement of at least 4 hours a night on 70% of nights was reviewed. - Follow up to evaluate tolerance, adherence, and efficacy of PAP treatment. Follow-up with Sleep Medicine in 2 months. Heidi Colón DO documented in this encounter Nursing Notes * Elisabeth Sosa LPN - 12/14/2022 11:24 AM EDT [facility]EP [facility] NOTES: Alec Peterson : 1940 MR: [id number] The patient was identified by name and date of .:yes Occupation: retired Did your weight : Unchanged Do you smoke: no What time do you go to bed: 9:00 -10:00 pm How long does it take to fall asleep: 20 minutes What is your waketime: 7 am Do you feel that you continue to be fatiqued or sleepy: yes, When: all day Headache in AM: no How many bathroom trips interrupt sleeptime: 5 times [place] Sleepiness Scale Question 12/14/2022 11:27 AM EDT - Filed by Elisabeth Sosa LPN What is the chance you will doze off in the following situation? Sitting and reading Moderate chance of dozing Watching TV Moderate chance of dozing Sitting inactive in a public place, such as a theater or meeting No chance of dozing As a passenger in a car for an hour without a break No chance of dozing Lying down to rest in the afternoon when circumstances permit High chance of dozing When sitting and talking to someone No chance of dozing When sitting quietly after lunch without alcohol No chance of dozing In a car, while stopped for a few minutes in traffic No chance of dozing Score (range: 0 - 24) 7 Elisabeth Sosa LPN 12/14/2022 11:24 AM documented in this encounter Plan of Treatment Upcoming Encounters Date Type Specialty Care Team Description 01/28/2023 Office Visit Neurology Marquita Herrera PA-C [address] [place] [address] 01/29/2023 Office Visit Family Medicine Jose Angel Weeks DO [address] [place] [address] 04/10/2023 Office Visit Hematology Oncology Edmar Meeks MD [address] [facility] [place] [address] 04/11/2023 Office Visit Sleep Disorders Heidi Colón DO [address] [place] [address] 10/28/2023 Cardiac Studies Cardiac Studies 12/09/2023 Office Visit Dermatology Jacky Arroyo MD [address] [place] [address] Scheduled Procedures Name Priority Associated Diagnoses Date/Ti me ESOPHAGOGASTRODUODENOSCOPY ( EGD), FLEXIBLE, TRANSORAL, DIAGNOSTIC Recall Gastric polyps COLONOSCOPY FLEXIBLE PROXIMAL DIAGNOSTIC Recall History of colonic polyps Health Maintenance Due Date Last Done Comments Influenza Vaccine (FLU shot) (#1) 2022 02/07/2022, 01/17/2021, 01/29/2020, Additional history exists Depression Screening 10/27/2023 10/26/2022 COLONOSCOPY-EVERY 5 YRS AGES 18-100 06/24/2025 06/24/2020, 09/18/2016, 09/18/2016 DTaP,Tdap,and Td Vaccines (3 - Td or Tdap) 03/16/2026 03/16/2016, 10/21/2004 Pneumococcal Vaccine: 65+ Years Completed 03/15/2015, 10/22/2011 Zoster Vaccines Completed 06/27/2018, 09/2017, 09/19/2017, Additional history exists COLONOSCOPY-EVERY 3 YRS AGES 18-100 Discontinued 06/24/2020, 09/18/2016, 09/18/2016 COVID-19 Vaccine Completed 01/30/2022, 09/2021, 02/13/2021, Additional history exists GARDASIL-HPV IMMUNIZATION SERIES Aged Out No longer eligible based on patient's age to complete this topic Hepatitis B Aged Out No longer eligi ble based on patient's age to complete this topic MENINGOCOCCAL (MENACTRA/MENVEO) Aged Out No longer eligible based on patient's age to complete this topic documented as of this encounter Medical Devices Implanted Type Area Kitchen Operator Device Identifier Shelf Expiration Date Model / Serial / Lot Cover Adilene Hole 17mm [id number] - [id number] Implanted:Qty : 1 on 04/20/2022 by Prudencio Sung III, MD at [facility] Left: Head SYN[employer]ES MAXILLOFACIAL [id number] / / Valve Tavr Jayson 29mm - [id number] Implanted:Qty : 1 on 09/05/2022 by Alexis Crenshaw MD at [facility] [employer] [id number] 03/08/2023 [id number] / / documented as of this encounter Visit Diagnoses Diagnosis Obstructive sleep apnea- Primary Obstructive sleep apnea (adult) (pediatric) Nocturnal hypoxemia Hypoxemia Fatigue, unspecified type Hypertensive heart disease with heart failure (HCC) Unspecified hypertensive heart disease with heart failure documented in this encounter Advance Directives Documents on File Type Date Recorded 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
--- OUTSIDE RECORDS SUMMARY | 2023-03-13 08:43 | External Medical Summary | Summary of Care ---
Author Name Unknown Organization [facility] Address [address] [place] [address] Phone [phone] Care Team Providers Care Fluid Dynamicist Name Role Phone Pat Weeks DO Primary Care Provider [phone] Reason for Visit * Reason Onset Date Comments Information 12/18/2022 Encounter Details Date Type Department Care Team Description 12/18/2022 Refill Family Practice [facility] [address] [place] [address] Pat Weeks DO [address] [place] [address] History of recurrent deep vein thrombosis (DVT) Allergies Active Allergy Reactions Severity Noted Date Comments Ibuprofen 12/12/2013 Aspirin 07/03/2021 Other reaction(s): CANNOT TAKE DUE TO GASTRITIS Valdecoxib 03/03/2013 General ill feeling Celecoxib Other (Please comment) 08/27/2017 warning analyst use caused heart-burn Cyclosporine 12/12/2013 Finasteride Other [...] as of this encounter (statuses as of 12/18/2022) Medications Medication Sig Dispensed Refills Start Date [...] Active Additional Information Patient taking differently: 1 [place] Nasal Daily(AM), Reported on 09/13/2022 Vitamin D3 [...] 10 g 1 05/18/2022 Active Nystatin-Triamcinolo ne 828868-4.1 UNIT/GM-% External Cream (Mycolog)Indications :Chronic dermatitis APPLY [...] the morning. 30 Tablet 5 12/18/2022 Active Folic Acid 1 MG Oral Tablet Take 1 Tablet by mouth in the morning. 30 Tablet 5 06/21/2022 12/19/19 23 Discontinu ed(Refill) Apixaban 5 MG Oral Tablet (Eliquis)Indications :History of recurrent deep vein thrombosis (DVT) Take 1 Tablet by mouth in the morning and 1 Tablet before bedtime. Do not start before September 07, 2022. 60 Tablet 5 09/07/2022 12/19/19 23 Discontinu ed(Refill) documented as of this encounter (statuses as of 12/18/2022) Active Problems Problem Noted Date Status post transcatheter ao rtic valve replacement (TAVR) using bioprosthesis 09/04/2022 Hypertensive heart disease with heart fa ilure 05/18/2022 Aortic ectasia 05/18/2022 Supraventricular tachycardia 05/18/2022 Atherosclerosis of [place] coronary arter y without angina pectoris 05/18/2022 [...] 09/12 BCC right upper back BCC left restoration History of compression fracture of spine 08/27/2017 Overview: Winter , T10, L5 - traumatic History of recurrent deep vein thrombosi s (DVT) 07/04/2017 Overview: right leg, recurrent Diastolic dysfunction 07/06/2016 snf current use of anticoagulant t herapy 10/21/2012 Overview: ICD-10 update of inactive term Insomnia Chronic rhinitis documented as of this encounter (statuses as of 12/18/2022) Resolved Problems Problem Noted Date Resolved Date Aortic stenosis 03/20/2022 05/18/2022 Severe aortic valve stenosis 05/20/201901/2023 Premature atrial contractions 10/10/2017 Heart failure, diastolic, due to HTN 03/16/2016 07/06/2016 Thrombocytopenia 06/05/2013 06/06/2022 Dry eyes 04/16/2013 08/27/2017 Anticoagulation management encounter 10/21/2012 09/12/2022 Deep vein thrombosis 07/04/2017 Basal cell carcinoma 09/05/2017 documented as of this encounter (statuses as of 12/18/2022) Immunizations Name Administration Dates Next Due COVID-19 mRNA, LNP-s, No Pre serve, 2-Dose Series ([employer]) 08/02/2021,02/13/2021,07/28/2020,06/27 Covid-19, Mrna, Lnp-s, Pf, B ivalent, [...] Telephone Encounter - Aaliyah Clemente LPN - 12/18/2022 4:14 PM EDTSigned Prescriptions: Disp Refills Apixaban 5 MG Oral Tablet (Eliquis) 60 Tab*5 Sig: Take 1 Tablet by mouth in the morning and 1 Tablet before bedtime. Authorizing Provider: PAT WEEKS Ordering User: JOSE MANZO Folic Acid 1 MG Oral Tablet 30 Tab*5 Sig: Take 1 Tablet by mouth in the morning. Authorizing Provider: PAT WEEKS Ordering User: JOSE MANZO * Telephone Encounter - REENA Hernandez - 12/18/2022 2:57 PM EDT Pt calling in regards to his eliquis. Pt states he is OUT of med and needs this sent to [facility]. Pt states this was sent to [facility] but should have been to [facility]. Please change pharmacy and contact pt heber so he knows to order picker/assembler. He can be reached at [phone] Pt and are asking to have [facility] removed from their pharmacy list. Please have pharmacist reach out to patient. Pt wants to confirm they are NOT signed up with [facility] and discuss further med mgmt. Did you pend patient's preferred pharmacy and medication before forwarding?yes Pharmacy: [facility] [id number] Pending Prescriptions: Disp Refills Apixaban 5 MG Oral Tablet (Eliquis) 60 Tab*5 Sig: Take 1 Tablet by mouth in the morning and 1 Tablet before bedtime. Folic Acid 1 MG Oral Tablet 30 Tab*5 Sig: Take 1 Tablet by mouth in the morning. Last Visit: 10/26/2022 (in office), Visit date not found (telemedicine) Next Visit: 01/29/2023 If no future appointments scheduled, and last appointment is greater than a year ago, please schedule patient for a follow-up appointment Last date the medication was ordered: folic acid - 06.21.22 apixaban 09.07.22 Is this request for a controlled substance?No Urine Drug Screen: Results for orders placed or performed during the hospital encounter of 04/18/22 TOXICOLOGY, URINE SCREEN W/ CONFIRMATION Result Value Amphetamine Negative Benzodiazepines Negative Cannabinoids Negative Cocaine Metabolite Negative Fentanyl Positive (A) Hydrocodone / Hydromorphone Negative Methadone Metabolite Negative Morphine / Codeine Negative Oxycodone / Oxymorphone Positive (A) Narrative Cutoff Concentrations: Drug Level Amphetamines 500 ng/mL Benzodiazepines 100 ng/mL Cannabinoids 50 ng/mL Cocaine Metabolite 150 ng/mL Fentanyl 1 ng/mL Hydrocodone / Hydromorphone 300 ng/mL Methadone Metabolite 100 ng/mL Morphine / Codeine 300 ng/mL Oxycodone / Oxymorphone 100 ng/mL Screening results are presumptive and can only be used for medical purposes. Positive screening results are reflexed to confirmatory testing. Patient Phone Numbers [facility] [phone] Labs: Lab Results Component Value Date/Time CREAT 0.9 09/14/2022 01:57 PM CREAT 0.9 05/16/2020 12:45 PM POTASSIUM 4.3 09/14/2022 01:57 PM POTASSIUM 4.5 05/16/2020 12:45 PM TSH 1.65 08/13/2022 12:22 PM TSH 3.58 04/18/2020 10:46 AM LDLCALC 49 08/13/2022 12:22 PM LDLCALC 58 12/17/2019 10:44 AM LDLDIRECT NOT APPLICABLE 12/17/2019 10:44 AM ALT 10 09/14/2022 01:57 PM ALT 8 (L) 05/04/2020 02:54 PM HGBA1C 5.3 06/13/2012 12:00 AM documented in this encounter Plan of Treatment Upcoming Encounters Date Type Specialty Care Team Description 01/28/2023 Office Visit Neurology Marquita Herrera PA-C [facility] [place] [address] 01/29/2023 Office Visit Family Medicine Pat Weeks DO [address] [place] [address] 04/10/2023 Office Visit Hematology Oncology Edmar Meeks MD [address] [facility] [place] [address] 04/11/2023 Office Visit Sleep Disorders Heidi Colón DO [address] [place] [address] 10/28/2023 Cardiac Studies Cardiac Studies 12/09/2023 Office Visit Dermatology Jacky Arroyo MD [address] [facility] [place], [place] [address] Scheduled Procedures Name Priority Associated Diagnoses Date/Ti me ESOPHAGOGASTRODUODENOSCOPY ( EGD), FLEXIBLE, TRANSORAL, DIAGNOSTIC Recall Gastric polyps COLONOSCOPY FLEXIBLE PROXIMAL DIAGNOSTIC Recall History of colonic polyps Health Maintenance Due Date Last Done Comments Influenza Vaccine (FLU shot) (#1) 2022 02/07/2022, 01/17/2021, 01/29/2020, Additional history exists Depression Screening, Annual for Pts 12 and Over 10/27/2023 10/26/2022 COLONOSCOPY-EVERY 5 YRS AGES 18-100 [...] this encounter Medical Devices Implanted Type Area Front Office Associate Device Identifier Shelf Expiration Date Model / Serial / Lot Cover Adilene Hole 17mm 421.554 - [id number] Implanted:Qty : 1 on 04/20/2022 by Prudencio Sung III[place] [facility] [place] Head SYNTHES MAXILLOFACIAL 421.554 / / Valve Tavr Jayson 29mm - [id number] Implanted:Qty : 1 on 09/05/2022 by Alexis Crenshaw MD [place] [facility] [facility] [place] [employer] [id number] 03/08/2023 [id number] / / documented as of this encounter Visit Diagnoses Diagnosis History of recurrent deep vein thrombosis (DVT) documented in this encounter Advance Directives Documents on File Type Date Recorded Patient Business Consult Expl anation Advance Directives and Living Will [...] Advance Directives occurred with: Patient Care Teams Fluid Dynamicist Relationship Specialty Start Date End Date Pat Weeks, DO [address] [place] [address] PCP - General Internal Medicine 07/25/21 documented as of this encounter
--- OUTSIDE RECORDS SUMMARY | 2023-03-13 08:43 | External Medical Summary | Summary of Care ---
Author Name Unknown Organization [facility] Address [address] [place] [address] Phone [phone] Care Team Providers Care Boiler Repairman Name Role Phone Jose Angel Weeks DO Primary Care Provider [phone] Reason for Referral * Evaluate & Treat - Unlimited Visits (Within 30 days (routine)) - Authorized Specialty Diagnoses / Procedures Referred By Kathia hooks Referred To Contact Ophthalmology Diagnoses Vision problem Visual disturbances Jose Angel Weeks DO [address] [place] [address] Zane Bar DO [address] [facility] [address] [place] [address] Referral ID Status Reason Start Date Expiration Date Visits Requested Visits Authorized [id number] Authorized Specialty Services Required 01/10/[phone] Question Answer Referral Priority Within 30 days (routine) Referring to: Outside [employer] staff will not schedule outside referrals Acknowledge Referring for: Ophthalmology Conditions Ophthalmology Conditions Other Ophthalmology (comment) Comments Dr Bar with Dr England associate. Has appt 02/08/2023 Reason for Visit * Reason Onset Date Comments Advice 01/10/202301/10 Encounter Details Date Type Department Care Team Description 01/10/2023 Telephone Family Practice [address] [place] [address] [place] [address] Jose Angel Weeks, DO [address] [place] [address] Advice (01/10) Allergies Active Allergy Reactions Severity Noted Date Comments Ibuprofen 12/12/2013 Aspirin 07/03/2021 Other reaction(s): CANNOT TAKE DUE TO GASTRITIS Valdecoxib 03/03/2013 General ill feeling Celecoxib Other (Please comment) 08/27/2017 [facility] use caused heart-burn Cyclosporine 12/12/2013 Finasteride Other [...] 10/22/2012 Active fluticasone (FLONASE) 50 MCG/ACT nasal sprayIndications:Business Control Manager natalia rhinitis USE TWO SPRAYS IN EACH NOSTRIL ONCE DAILY 16 g 4 10/27/2014 Active Additional Information Patient taking differently: 1 [place] Nasal Daily(AM), Reported on 09/13/2022 Vitamin D3 [...] 10 g 1 05/18/2022 Active Nystatin-Triamcinolon e 975340-5.1 UNIT/GM-% External Cream (Mycolog)Indications: Chronic dermatitis APPLY [...] ectasia 05/18/2022 Supraventricular tachycardia 05/18/2022 Atherosclerosis of [place] coronary arter y without angina pectoris 05/18/2022 [...] 09/12 BCC right upper back BCC left voodoo History of compression fracture of spine 08/27/2017 Overview: Winter , T10, L5 - traumatic History of recurrent deep vein thrombosi s (DVT) 07/04/2017 Overview: right leg, recurrent Diastolic dysfunction 07/06/2016 [facility] current use of anticoagulant t herapy 10/21/2012 [...] mRNA, LNP-s, No Pre serve, 2-Dose Series (Pfizer) 08/02/2021,02/13/2021,07/28/2020,06/27 Covid-19, Mrna, Lnp-s, Pf, B ivalent, [...] Telephone Encounter - Aaliyah Clemente LPN - 01/10/2023 11:[address] Moore for shoulder pain, was advised shoulder replacement is needed scheduled 03/11. Advised patient to contact the health plan since he will be covered since prior to a year follow up. Patient having increased problems with eyes/vision. Thank you * Telephone Encounter - REENA Bah - 01/10/2023 11:34 AM EDT Has shoulder replacement scheduled Needs to discuss eye appt as it will need to be rescheduled to sooner than a year Please call in authorization for this to happen documented in this encounter Plan of Treatment Upcoming Encounters Date Type Specialty Care Team Description 01/28/2023 Office Visit Neurology Marquita Herrera PA-C [address] [place] [address] 01/29/2023 Office Visit Family Medicine Jose Angel Weeks, DO [address] [place] [address] 04/10/2023 Office Visit Hematology Oncology Edmar Meeks MD 200 [facility] [place] [address] 04/11/2023 Office Visit Sleep Disorders Heidi Colón, [address] [place] [address] 10/28/2023 Cardiac Studies Cardiac Studies 12/09/2023 Office Visit Dermatology Jacky Arroyo MD [address] [facility] [address] [place] [address] Scheduled Procedures Name Priority Associated Diagnoses Date/Ti me ESOPHAGOGASTRODUODENOSCOPY ( EGD), FLEXIBLE, TRANSORAL, DIAGNOSTIC Recall Gastric polyps COLONOSCOPY FLEXIBLE PROXIMAL DIAGNOSTIC Recall History of colonic polyps Scheduled Referrals Name Type Priority Associated Diagnoses Orde r Schedule ADULT/PEDS OPHTHALMOLOGY/OPTO METRY REFERRAL OP Referral Within 30 days (routine) Vision problem Visual disturbances Ordered: 01/10/2023 Health Maintenance Due Date Last Done Comments [...] encounter Medical Devices Implanted Type Area Certified Paralegal Device Identifier Shelf Expiration Date Model / Serial / Lot Cover [place]on Hole 17mm 421.554 - [id number] Implanted:Qty : 1 on 04/20/2022 by Prudencio Sung III, [place] [facility] [place]: Head SYNTHES MAXILLOFACIAL 421.554 / / Valve Tavr Jayson 29mm - [id number] Implanted:Qty : 1 on 09/05/2022 by Alexis Crenshaw MD at [facility] [place] [employer] [id number] 03/08/2023 [id number] / / documented as of this encounter Visit Diagnoses Diagnosis Visual disturbances- Primary Unspecified visual disturbance Vision problem Problems with sight documented in this encounter Advance Directives Documents on File Type Date Recorded Patient Staff Radiologist Expl anation Advance Directives and Living Will [...] Advance Directives occurred with: Patient Care Teams Boiler Repairman Relationship Specialty Start Date End Date Jose Angel Weeks, [address] [place] [address] PCP - General Internal Medicine 07/25/21 documented as of this encounter
--- OUTSIDE RECORDS SUMMARY | 2023-03-13 08:43 | External Medical Summary | Summary of Care ---
Author Name Unknown Organization [facility] Address [address] [place] [address] Phone [phone] Care Team Providers Care Lime Sludge Kiln Operator Name Role Phone Jose Angel Weeks DO Primary Care Provider [phone] Reason for Visit * Reason Onset Date Comments Administrative Follow-Up 01/11/[address] for CPAP set up Encounter Details Date Type Department Care Team Description 01/11/2023 Telephone Pulmonary Medicine, [facility] [address] [place] [address] Heidi Colón DO [address] [place] [address] Administrative Follow-Up (DME Order for CP... Allergies Active Allergy Reactions Severity Noted Date Comments Ibuprofen 12/12/2013 Aspirin 07/03/2021 Other reaction(s): CANNOT TAKE DUE TO GASTRITIS Valdecoxib 03/03/2013 General ill feeling Celecoxib Other (Please comment) 08/27/2017 care home use caused heart-burn Cyclosporine 12/12/2013 Finasteride Other [...] as of this encounter (statuses as of 01/11/2023) Medications Medication Sig Dispensed Refills Start Date End Date Status ALAVERT [address] one pill on tongue once daily as needed for allergies 30 Tab 5 10/21/2012 Active VITAMIN B-12 500 MCG PO TABSIndications: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 0 10/22/2012 Active fluticasone (FLONASE) 50 MCG/ACT nasal sprayIndications:Vp Analysis natalia rhinitis USE TWO SPRAYS IN EACH NOSTRIL ONCE DAILY 16 g 4 10/27/2014 Active Additional Information Patient taking differently: 1 [place] Nasal Daily(AM), Reported on 09/13/2022 Vitamin D3 [...] 10 g 1 05/18/2022 Active Nystatin-Triamcinolon e 571028-1.1 UNIT/GM-% External Cream (Mycolog)Indications: Chronic dermatitis APPLY [...] as of this encounter (statuses as of 01/11/2023) Active Problems Problem Noted Date Status post transcatheter ao rtic valve replacement (TAVR) using bioprosthesis 09/04/2022 Hypertensive heart disease with heart fa ilure 05/18/2022 Aortic ectasia 05/18/2022 Supraventricular tachycardia 05/18/2022 Atherosclerosis of [place] coronary arter y without angina pectoris 05/18/2022 [...] skin cancer 09/05 Overview: BCC left chest 5/17 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 History of compression fracture of spine 08/27/2017 Overview: Winter , T10, L5 - traumatic History of recurrent deep vein thrombosi s (DVT) 07/04/2017 Overview: right leg, recurrent Diastolic dysfunction 07/06/2016 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 current use of anticoagulant t herapy 10/21/2012 Overview: ICD-10 update of inactive term Insomnia Chronic rhinitis documented as of this encounter (statuses as of 01/11/2023) Resolved Problems Problem Noted Date Resolved Date Aortic stenosis 03/20/2022 05/18/2022 Severe aortic valve stenosis 05/20/201901/2023 Premature atrial contractions 10/10/2017 Heart failure, diastolic, due to HTN 03/16/2016 07/06/2016 Thrombocytopenia 06/05/2013 06/06/2022 Dry eyes 04/16/2013 08/27/2017 Anticoagulation management encounter 10/21/2012 09/12/2022 Deep vein thrombosis 07/04/2017 Basal cell carcinoma 09/05/2017 documented as of this encounter (statuses as of 01/11/2023) Immunizations Name Administration Dates Next Due COVID-19 mRNA, LNP-s, No Pre serve, 2-Dose Series (Blue Box) 08/02/2021,02/13/2021,07/28/2020,06/27 Covid-19, Mrna, Lnp-s, Pf, B ivalent, 30 Mcg, IM, 12 yrs and above (Blue Box) 01/30/2022 Pneumococcal Conjugate Vacc, 13 Valent (Prevnar) [...] encounter Miscellaneous Notes * Telephone Encounter - Yeni Terrence Rodgers - 01/11/2023 3:05 PM EDT DME order for Cpap set up placed in [facility]. documented in this encounter Plan of Treatment Upcoming Encounters Date Type Specialty Care Team Description 01/28/2023 Office Visit Neurology Marquita Herrera PA-C [address] [facility] [place] [address] 01/29/2023 Office Visit Family Medicine Jose Angel Weeks DO [address] [place] [address] 04/10/2023 Office Visit Hematology Oncology Edmar Meeks MD [address] [facility] [place] [address] 04/11/2023 Office Visit Sleep Disorders Heidi Colón DO [address] [place] [address] 10/28/2023 Cardiac Studies Cardiac Studies 12/09/2023 Office Visit Dermatology Jacky Arroyo MD [address] [facility] [place] [address] Scheduled Procedures Name Priority Associated Diagnoses Date/Ti [...] Completed 03/15/2015, 10/22/2011 Zoster Vaccines Completed 06/27/2018, 110 09/2017, 09/19/2017, Additional history exists COLONOSCOPY-EVERY 3 [...] this encounter Medical Devices Implanted Type Area International Logistics Analyst Device Identifier Shelf Expiration Date Model / Serial / Lot Cover Sheridan Hole 17mm 421.554 - [id number] Implanted:Qty : 1 on 04/20/2022 by Prudencio Sung III[place] [facility] [place] Head SYNTHES MAXILLOFACIAL 421.554 / / Valve Tavr Jayson 29mm - [id number] Implanted:Qty : 1 on 09/05/2022 by Alexis Crenshaw [place] [facility] [place] [employer] [id number] 03/08/2023 [id number] / / documented as of this encounter Advance Directives Documents on File Type Date Recorded Patient Elevator Serviceman Expl anation Advance Directives and Living Will [...] Advance Directives occurred with: Patient Care Teams Lime Sludge Kiln Operator Relationship Specialty Start Date End Date Jose Angel Weeks, DO [address] [place] [address] PCP - General Internal Medicine 07/25/21 documented as of this encounter
--- OUTSIDE RECORDS SUMMARY | 2023-03-13 08:43 | External Medical Summary | Summary of Care ---
Author Name Unknown Organization [facility] Address [address] [place] [address] Phone [phone] Care Team Providers Care Therapist Asst Name Role Phone Jose Angel Weeks DO Primary Care Provider [phone] Reason for Visit * Reason Comments Return Neuro Encounter Details Date Type Department Care Team Description 01/28/2023 Office Visit Neurology [facility] [place] [address] [facility] [place] [address] Marquita Herrera PA-C [address] [facility] [place] [address] Memory changes*; Subdural hematoma (HCC); Closed fracture of proximal end of left humerus with routine healing, unspecified fracture morphology, subsequent encounter Allergies Active Allergy Reactions Severity Noted Date Comments Ibuprofen 12/12/2013 Aspirin 07/03/2021 Other reaction(s): CANNOT TAKE DUE TO GASTRITIS Valdecoxib 03/03/2013 General ill feeling Celecoxib Other (Please comment) 08/27/2017 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 USE TWO SPRAYS IN EACH NOSTRIL ONCE DAILY 16 g 4 10/27/2014 Active Additional Information Patient taking differently: 1 Vardaman Nasal Daily(AM), Reported on 09/13/2022 Vitamin D3 [...] 10 g 1 05/18/2022 Active Nystatin-Triamcinolon e 078249-7.1 UNIT/GM-% External Cream (Mycolog)Indications: Chronic dermatitis APPLY [...] as of this encounter (statuses as of 01/28/2023) Active Problems Problem Noted Date Status post transcatheter ao rtic valve replacement (TAVR) using bioprosthesis 09/04/2022 Hypertensive heart disease with heart fa ilure 05/18/2022 Aortic ectasia 05/18/2022 Supraventricular tachycardia 05/18/2022 Atherosclerosis of [place] coronary arter y without angina pectoris 05/18/2022 [...] 09/12 BCC right upper back BCC left gnosticist History of compression fracture of spine 08/27/2017 Overview: Winter , T10, L5 - traumatic History of recurrent deep vein thrombosi s (DVT) 07/04/2017 Overview: right leg, recurrent Diastolic dysfunction 07/06/2016 snf current use of anticoagulant t herapy 10/21/2012 Overview: ICD-10 update of inactive term Insomnia Chronic rhinitis documented as of this encounter (statuses as of 01/28/2023) Resolved Problems Problem Noted Date Resolved Date Aortic stenosis 03/20/2022 05/18/2022 Severe aortic valve stenosis 05/20/201901/2023 Premature atrial contractions 10/10/2017 Heart failure, diastolic, due to HTN 03/16/2016 07/06/2016 Thrombocytopenia 06/05/2013 06/06/2022 Dry eyes 04/16/2013 08/27/2017 Anticoagulation management encounter 10/21/2012 09/12/2022 Deep vein thrombosis 07/04/2017 Basal cell carcinoma 09/05/2017 documented as of this encounter (statuses as of 01/28/2023) Immunizations Name Administration Dates Next Due COVID-19 mRNA, LNP-s, No Pre serve, 2-Dose Series ([employer] 08/02/2021,02/13/2021,07/28/2020,06/27 Covid-19, Mrna, Lnp-s, Pf, B ivalent, 30 Mcg, IM, 12 yrs and above ([employer] 01/30/2022 Pneumococcal Conjugate Vacc, 13 Valent (Prevnar) [...] Tobacco: Never Tobacco Cessation:Counseling Given: Not Answered Comments:No passive smoke exposure Alcohol Use Standard Drinks/Week Comments No 0 [...] Sign Reading Time Taken Comments Blood Pressure 132/60 01/28/2023 10:44 AM EDT Pulse 58 01/28/2023 10:44 AM EDT Temperature 36.7 C (98.1 F) 01/28/2023 10:44 AM E DT Respiratory Rate 20 01/28/2023 10:44 AM EDT Oxygen Saturation 98% 01/28/2023 10:44 AM EDT Inhaled Oxygen Concentration - - Weight 81.2 kg (179 lb) 01/28/2023 10:44 AM EDT Height - - Body Mass Index 25.68 12/14/2022 11:23 AM EDT documented in this [...] as of this encounter Progress Notes * Marquita Herrera PA-C - 01/28/2023 10:44 AM EDT HISTORY & PHYSICAL EXAMINATION - NEUROLOGY Name: Alec Peterson Date: 01/28/2023 Time: 10:44 AM Referring Provider: Jose Angel Weeks DO Chief Complaint: Chief Complaint Patient presents with Return Neuro This is a 82 year old right handed gentleman returns today for follow up for memory issues. HPI & Source of HPI The patient and spouse was the historian, and they are reliable. He was admitted on 04/18/22 after a fall and was found to have a subdural hematoma, L proximal humerus fx. He has a history of aortic stenosis and diastolic heart failure for which he was set to undergo TAVR, this has been postponed and his coumadin held. While inpatient he had worsening of his head bleed and neurosurgery performed a L craniotomy for evacuation of the subdural hematoma, duraplasty, and subdural and subgaleal drain placements. The drains were removed and a repeat CT head after removal without any acute issues. He has been doing well from a neuro standpoint but has been having some a fib RVR. This was controlled with a few additional doses of 5mg IV metoprolol on top of his PO metoprolol regimen. His metoprolol was increased to 50mg BID and had no further issues with RVR. He is to continue that dosage and follow with cardiology. He was transferred to acute rehab and then to assisted living for further assistance with his memory issues and recover. At the time he was really struggling cognitively and was unable to do any concrete thinking. He is now back to management of bills and he plays chess on his computer. He is still not winning but he is doing better than post fall. His is concerned about his short term memory. He is not wandering from home, is not driving (due to shoulder fracture). He would like to go back to driving after his shoulder is healed. He is now having a shoulder replacement surgery. 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 Denies CP, SOB,abdominal pain, N, V,falls. I have reviewed the patient's medications and allergies, past medical, surgical, social and family history, updating these as appropriate. See Histories section of the electronic medical record for adisplay of this information. Patient Active Problem List Diagnosis Code Insomnia G47.00 Chronic rhinitis J31.0 snf current use of anticoagulant therapy Z79.01 Diastolic [...] I11.0 Aortic ectasia (HCC) I77.819 Supraventricular tachycardia I47.10 Atherosclerosis of [place] co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 angina pectoris I25.10 Status post transcatheter aortic valve replacement (TAVR) using bioprosthesis Z95.3 Family History Problem Relation Age of Onset Other (dementia) Mother Diabetes Mother Heart Disorder Father Parkinsonism Brother Leukemia Brother Medications: Are you taking your medications? yes Current Outpatient Medications Medication Sig Dispense Refill ALAVERT [address] one pill on tongue once daily as needed for allergies 30 Tab 5 VITAMIN B-12 500 MCG PO TABS Take 1 Tablet by mouth in the morning. fluticasone (FLONASE) 50 MCG/ACT nasal spray USE TWO SPRAYS IN EACH NOSTRIL ONCE DAILY (Patient taking differently: Administer 1 Vardaman into nostril in the morning.) 16 g 4 Vitamin D3 10 MCG (400 UNIT) Oral Tablet (cholecalciferol) Take 1 Tablet by mouth in the morning. Mupirocin Calcium 2 % External Cream Apply topically to affected area 3 times a day . Opening area on face. 45 g 3 Artificial Tears 0.1-0.3 % Ophthalmic Solution (Dextran [...] eyes at bedtime. 10 g 1 Nystatin-Triamcinolone 090905-0.1 UNIT/GM-% External Cream (Mycolog) APPLY TOPICALLY NEEDED [...] mouth in the morning. 30 Tablet 5 No current facility-administered medications for this visit. 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 Physical Exam: Constitutional: BP 132/60 (BP Site: Right Arm, BP Position: Sitting, BP Cuff Size: Regular) | Pulse58 | Temp 36.7 C (98.1 F) (Tympanic) | Resp 20 | Wt 81.2 kg (179 lb) | SpO2 98% | BMI 25.68 kg/m | BSA 2 m , appearance nourished and healthy Ears, Nose, Mouth and Throat: mucous membranes moist, no injection and skin normal, eyes normal Cardiovascular: normal S-1 and S-2 and regular rate and rhythm, opening murmer Respiratory: clear to auscultation (CTA) and no rales, ronchi or wheeze Musculoskeletal: no peripheral edema Skin: normal and intact Eyes: extraocular muscles intact (EOMI) NEUROLOGIC EXAMINATION: Mental status: Alert and interactive Oriented to person Speech fluent with no evidence of aphasia Recent and remote memory intact Cranial Nerves Normal findings for Cranial Nerves II - XII Coordination: on [id number] Gait/Stance: Posture normal. Gait normal: with steady with steps, base, arm swing, and tandem gait. Motor: Negative for pronator drift of out stretched arms with eyes closed. Strength: Normal - 5/5 all extremities LABORATORY: Recent labs reviewed Review of prior Studies: No recent imaging available. Impression: Alec Peterson is a 82 year old gentleman with a history of memory issues after fall and SDH. His neurologic examination today reveals no new focal deficit. The history and examination are suggestive of diagnosis/problem list. Testing and Referrals ordered: none ICD-10-CM 1. Memory changes R41.3 2. Subdural hematoma (HCC) S06.5XAA 3. Closed fracture of proximal end of left humerus with routine healing, unspecified fracture morphology, subsequent encounter S42.202D Return in 6 months or sooner if needed If back to baseline after surgery will see him 1 more time and then PRN Keep as physically and mentally active as possible PCP for medical management Call with questions concerns. Medical Decision Making (determined by lowest of 2 of 3 elements): The medical decision making element of the number and complexity of problems addressed included at least 1 or more chronic illnesses with exacerbation, progression, or side effects of treatment (level 4) and 2 or more stable chronic illnesses (level 4). The medical decision making element of risk of complications, morbidity, and mortality of patient management is moderate (level 4) due to prescription drug management (moderate risk). The medical decision making element of the amount and complexity of data reviewed and analyzed included an independent interpretation of a test (level 4 at least). When 2 of 3 reach level 4, then this element is considered extensive (level 5). I personally spent a total of 30 minutes. This time was for a new office or established visit and was on the same calendar day. Education / Consultation - Topics covered as I spent 20 minutes, which is greater than 50% of this visit, counseling the patient on: Diagnostic Results Prognosis Importance of compliance with chosen treatment options Risk factor reductions Patient and family education Consulted with physician: Josh Alberto MD was available for direct supervision. Copy of note sent toPCP and Referring Provider. Total time of visit: 30 minutes. Marquita Herrera PA-C Neurology [address] [address] 01/28/2023 10:44 AM documented in this encounter Nursing Notes * Norma Honeycutt LPN - 01/28/2023 10:42 AM EDT Patient verified identity by spelling of last name and date. Return visit No recent falls documented in this encounter Plan of Treatment Upcoming Encounters Date Type Specialty Care Team Description 01/29/2023 Office Visit Family Medicine Jose Angel Weeks, [address] [place] [address] 04/10/2023 Office Visit Hematology Oncology Edmar Meeks MD [address] [place] [address] 04/11/2023 Office Visit Sleep Disorders Heidi Colón DO [address] [place] [address] 07/30/2023 Office Visit Neurology Marquita Herrera PA-C [address] [facility] [place] [address] 10/28/2023 Cardiac Studies Cardiac Studies 12/09/2023 Office Visit Dermatology Jacky Arroyo MD [address] [place] [address] Scheduled Procedures Name Priority Associated Diagnoses Date/Ti [...] this encounter Medical Devices Implanted Type Area [employer] Specialist Device Identifier Shelf Expiration Date Model / Serial / Lot Cover [place] 17mm 421.554 - [id number] Implanted:Qty : 1 on 04/20/2022 by Prudencio Sung III, MD at OR [facility] Left: Head [employer] 421.554 / / Valve Tavr Jayson 29mm - [id number] Implanted:Qty : 1 on 09/05/2022 by Alexis Crenshaw MD at CARDIAC LABS [facility] [employer] [id number] 03/08/2023 [id number] / / documented as of this encounter Visit Diagnoses Diagnosis Memory changes- Primary Memory loss Subdural hematoma (HCC) Subdural hemorrhage Closed fracture of proximal end of left humerus with routine healing, unspecified fracture morphology, subsequent encounter documented in this encounter Advance Directives Documents on File Type Date Recorded Patient Animal Nutrition Teacher Expl anation Advance Directives and Living Will [...] Advance Directives occurred with: Patient Care Teams Therapist Asst Relationship Specialty Start Date End Date Jose Angel Weeks, DO [address] [facility] [place] [address] PCP - General Internal Medicine 07/25/21 documented as of this encounter"
== END 2023-03-12 12:12 | disposition home health service (06) ==
LOC: 3N 09:28 → ASU 09:28

== ENCOUNTER 2023-12-10 15:58 | Inpatient (IN) ==
[2023-12-10 16:32] LABS: Hematocrit (blood only) 37.4 % (42.0-52.0); Hemoglobin 12.9 g/dl (14.0-18.0); Mean Corpuscular Hemoglobin 34.8 pg (25.0-34.0); Mean Corpuscular Hgb Conc 34.5 g/dL (32.0-36.0); Mean Corpuscular Volume 100.8 fL (80.0-100.0); Mean Platelet Volume 9.6 fL (9.4-12.4); Platelet Count 87 K/uL (130-400); RDW Coefficient of Variation 11.1 % (11.5-14.5); RDW Standard Deviation 41.3 fL (36.4-46.3); Red Blood Count 3.71 M/uL (4.70-6.10); White Blood Count 4.72 K/ul (4.8-10.8)
[2023-12-10 16:51] LABS: Albumin Globulin Ratio 1.9 (0.9-2); Albumin Level 4.5 gm/dl (3.4-5.0); BUN Creatinine Ratio 36.4 (10-20); Bilirubin,Total 0.9 mg/dl (0.2-1.0); Calcium 9.3 mg/dl (8.6-10.3); Creatinine Clr Calc Pharmacy 77.7 ml/min; Est GFR (African American) 98.6 ml/min; Est GFR (Non-African American) 85.1 ml/min; Globulin 2.4 gm/dl (2.5-4.0); Potassium 4.6 mmol/L (3.5-5.1); Total Protein 6.9 gm/dl (6.0-8.3)
[2023-12-10 16:59] LABS: INR 1.1 (0.9-1.1); Partial Thromboplastin Ratio 1.2; Partial Thromboplastin Time 31 Seconds (21-31); Prothrombin Time 11.6 Seconds (9.0-12.0)
--- NOTE | 2023-12-10 17:13 | XRay Report ---
XR chest 1V portable CLINICAL HISTORY: stroke alert TECHNIQUE: Single frontal radiograph of the chest was obtained. Comparison: Comparison is made to chest radiograph 05/09/2017 FINDINGS: Left reverse arthroplasty is seen. Aortic valvular prosthesis is seen. Calcification of the aortic ar ch is seen. The lungs are clear. No evidence of pleural effusion or pneumothorax. IMPRESSION: No acute chest disease. ACT 112: Negative or not required by law. Electronically signed by: Ancelmo Salmon M.D. 12/10/2023 5:11 PM
[2023-12-10] MEDS: OPTIRAY 320 125ml IV ONE (17:52)
[2023-12-10 18:27] LABS: Appearance Urine Clear (Clear); Bacteria Urine Automated None Seen (None Seen); Bilirubin Urine Negative (Negative); Blood Urine Trace (Negative); Cast Urine Automated 0-2 /lpf (0-2); Color Urine Yellow; Epithelial Cell Urine Auto 0-2 /hpf (0-2); Glucose Urine UA Negative (Negative); Ketones Urine Negative (Negative); Leukocyte Esterase Urine Negative (Negative); Nitrite Urine Negative (Negative); Protein Urine Negative (Negative); RBC Urine Automated 0-2 /hpf (0-2); Specific Gravity Urine 1.017 (1.000-1.030); Urobilinogen Urine Negative (Negative); WBC Urine Automated 0-5 /hpf (0-5); pH Urine 5.5 (4.5-7.5)
--- NOTE | 2023-12-10 18:52 | Emergency Department Note ---
History of Present Illness General Chief complaint: TIA Symptoms Stated complaint: TIA SYMPTOMS Time Seen by Provider: 12/10/23 17:12 History of Present Illness Provider complaint: Difficulty seeing 83-year-old male on Eliquis presents emergency department for difficulty seeing. Patient reports that on Saturday night he lost vision in his left eye for approximately 40 minutes. He states it then suddenly reappeared. He states his vision was fine over the weekend and yesterday and then today around noon he lost vision in his left eye for approximate 40 minutes again. Patient states he went to the eye doctor who did a full exam on him and they referred him to the emergency department for concern of a presumed stroke. Patient denies any headache. No difficulties walking or weakness. No difficulty speaking. No numbness. No headache. No eye pain. Home Medications Medication Instructions Recorded Confirmed Type cyanocobalamin (vitamin B-12) 500 500 mcg PO QAM 04/01/20 08/14/23 History mcg tablet acetaminophen 500 mg tablet 1,000 mg PO TID 06/15/20 08/14/23 History cholecalciferol (vitamin D3) 10 400 unit PO QAM 06/15/20 08/14/23 History mcg (400 unit) tablet (Vitamin D3) fluticasone propionate 50 1 spray intranasal QAM 06/15/20 08/14/23 History mcg/actuation nasal spray,suspension (Flonase Allergy Relief) lifitegrast 5 % eye drops in a 1 drp ophthalmic (eye) BID 06/15/20 08/14/23 History dropperette (Xiidra) mupirocin calcium 2 % topical cream 1 applic topical UD PRN Skin 06/15/20 08/14/23 History Irritation nystatin-triamcinolone topical 1 applic topical UD PRN Skin 06/15/20 08/14/23 History cream Irritation peg 400-propylene glycol (PF) 0.4 1 drp ophthalmic (eye) UD PRN Dry 06/15/20 08/14/23 History %-0.3 % eye drops in a dropperette Eye(S) (Systane (PF)) psyllium 1 tbsp PO BID 11/28/20 08/14/23 History amoxicillin 500 mg capsule 2,000 mg PO ONCE PRN Other 12/12/22 08/14/23 History apixaban 5 mg tablet (Eliquis) 5 mg PO BID 12/12/22 08/14/23 History folic acid 1 mg tablet 1 mg PO DAILY 02/01/23 08/14/23 History metoprolol tartrate 50 mg tablet 50 mg PO BID 02/01/23 08/14/23 History cefadroxil 500 mg capsule 500 mg PO BID 10 days #20 caps 03/06/23 08/14/23 Rx oxycodone 5 mg tablet 5 mg PO Q6 PRN pain #30 tabs 03/06/23 08/14/23 Rx oxycodone 5 mg tablet 5 mg PO Q6H PRN pain #20 tabs 03/27/23 08/14/23 Rx Allergies Allergy/AdvReac Type Severity Reaction Status Date / Time aspirin AdvReac Unknown CANNOT Verified 08/14/23 15:48 TAKE DUE TO GASTRITIS celecoxib AdvReac Unknown [employer] Verified 08/14/23 15:48 USE CAUSED SEVERE HEARTBURN codeine AdvReac Unknown GENERAL Verified 08/14/23 15:48 ILL FEELING enoxaparin [From Lovenox] AdvReac Unknown thrombocyto Verified 08/14/23 15:48 penia finasteride AdvReac Unknown CAUSED Verified 08/14/23 15:48 GASTRITIS garlic AdvReac Unknown stomach Verified 08/14/23 15:48 cramp, diarrhea heparin AdvReac Unknown "not to be Verified 08/14/23 15:48 used with Eliquis" per pt hydrocodone AdvReac Unknown vomiting Verified 08/14/23 15:48 hydromorphone [From Dilaudid] AdvReac Unknown constipatio Verified 08/14/23 15:48 n ibuprofen AdvReac Unknown CANNOT Verified 08/14/23 15:48 TAKE DUE TO GASTRITIS lidocaine AdvReac Unknown lidocaine Verified 08/14/23 15:48 patch --> sinus infection loratadine AdvReac Unknown RACING Verified 08/14/23 15:48 HEART onion AdvReac Unknown upset Verified 08/14/23 15:48 stomach/diarrhea oxycodone AdvReac Unknown "KNOCKS ME Verified 08/14/23 15:48 OUT" pseudoephedrine AdvReac Unknown RACING Verified 08/14/23 15:48 HEART rofecoxib AdvReac Unknown GENERAL Verified 08/14/23 15:48 ILL FEELING valdecoxib AdvReac Unknown GENERAL Verified 08/14/23 15:48 ILL FEELING Past Med/Surg History Problem List (Updated 12/10/23 @ 19:27 by Pk Viveros MD) Stroke-like symptoms (Acute) Wears hearing aid in both ears Zabrina Prince P50R disp 02/01/22 Status post reverse total replacement of left shoulder (~02/2023) DVT (deep venous thrombosis) (Chronic) Thrombocytopenia (Chronic) Diastolic CHF (Chronic) Arthritis Bronchitis Nocturia Duodenal mass reason for upcoming colonoscopy & EGD Abdominal pain r/t duodenal mass? 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 Roger History of duodenal ulcer MAY 2020 - RESOLVED History of gastritis Lumbar spinal stenosis Pt unable to stand > 15 min in same space per PAT RN call Injury of right hip multiple times -- treated with physical therapy Deep vein thrombosis x2 both DVT Right leg s/p shoulder surgery and the other after extended driving. Eliquis. (2004 & 2006) SCC (squamous cell carcinoma) s/p excision BCC (basal cell carcinoma) s/p excision Sleep apnea not currently on treatment Thrombocytopenia per [facility] heme onc, usual range 100,000-110,000-pre-op 01/2023: 87,000 On anticoagulant therapy Anemia monitoring per [facility] heme/onc Spinal fracture 2009 (L5 & L10 & L12) s/p fall Gout last flare yrs ago PSVT (paroxysmal supraventricular tachycardia) ~[id number], treated in [facility]. no problems since 2012. Surgical History History of cardiac cath Feb 2022 > [facility] > no stents Hx of hernia repair Right Open Inguinal Hernia Repair with [facility] H/O aortic valve repair August 2022 > [facility] bleed subdural hematoma-hospitalized at [facility] Mar 2022 > due to a fall > surgical repair > was in ICU 11 days > Coumadin had been DC'ed was off thinner for a while, now on Eliquis History of esophagogastroduodenoscopy (EGD) History of cataract surgery bilateral History of cholecystectomy History of colonoscopy Status post Mohs surgery HX History of surgical removal of skin lesion H/O shoulder surgery bilateral Family History Father Heart disease Brother Heart disease Cancer Leukemia Social History Smoking Status: Never smoker Second Hand Exposure: No; Do You Dip or Chew Tobacco: No; Hx Alcohol Use: No Hx Substance Use: No Preferred Language: Upper Sorbian Communication Ability: Effective Picker And Packer Required: No Beliefs That Will Affect Care: None marital status: Current Living Situation: Spouse current occupational status: retired Feels Safe at Home: Yes Diet: regular Assistive Devices: Cane, Walker and Other Physical Exam Vital Signs Vital Signs - 24 hr 12/10/23 16:01 12/10/23 16:39 12/10/23 17:00 Temperature 36.7 C Temperature Source Skin Pulse Rate 67 Pulse Rate [Apical] 59 L 58 L Pulse Rhythm [Apical] Regular Regular Pulse Strength [Apical] Normal Normal Respiratory Rate 18 15 15 Respiratory Effort / Characteristics Non-Labored Spontaneous Non-Labored Spontaneous Respiratory Depth Normal Normal Respiratory Pattern Regular Regular Blood Pressure 199/87 H Blood Pressure [Left Arm] 179/80 H 135/62 Blood Pressure Mean 124 Blood Pressure Mean [Left Arm] 113 86 Blood Pressure Position [Left Arm] Lying Lying Pulse Oximetry 98 97 97 Oxygen Delivery Method Room Air Room Air Room Air Sepsis Recent Fever Within 48 Hours No Sepsis New/Unexplained Change in Mental Status No Sepsis Action Taken by Nursing No Action Required 12/10/23 17:01 12/10/23 18:08 12/10/23 19:00 Temperature Temperature Source Pulse Rate 59 L Pulse Rate [Apical] 56 L 55 L Pulse Rhythm [Apical] Regular Regular Pulse Strength [Apical] Normal Normal Respiratory Rate 16 19 Respiratory Effort / Characteristics Non-Labored Spontaneous Non-Labored Respiratory Depth Normal Normal Respiratory Pattern Regular Regular Blood Pressure Blood Pressure [Left Arm] 155/67 H 128/64 Blood Pressure Mean Blood Pressure Mean [Left Arm] 96 85 Blood Pressure Position [Left Arm] Sitting Lying Pulse Oximetry 98 99 Oxygen Delivery Method Room Air Room Air Sepsis Recent Fever Within 48 Hours Sepsis New/Unexplained Change in Mental Status Sepsis Action Taken by Nursing Physical Exam HENT: Exam performed. -Head: Normocephalic and atraumatic. No pain on palpation of either zoroastrian. -Right Ear: External ear normal. No mastoid erythema -Left Ear: External ear normal. No mastoid erythema -Mouth/Throat: The oropharynx is clear and moist. No trismus in the jaw. No dental abscesses or uvula swelling. No oropharyngeal exudate or tonsillar abscesses. EYES: Conjunctivae and EOM are normal. Pupils are equal, round, and reactive to light. Pupils are dilated 4 mm bilaterally. Right eye exhibits no discharge. Left eye exhibits no discharge. No scleral icterus. Funduscopic exam showed no AV nicking or papilledema bilaterally. No evidence of CRAO or CRVO. NECK: Normal range of motion. Neck supple. No JVD present. No spinous process tenderness present. No rigidity. No tracheal deviation and normal range of motion present. No Brudzinski's sign and no Kernig's sign noted. CV: Normal rate, regular rhythm, normal heart sounds and intact distal pulses. There is no peripheral edema. Palpable radial pulses bue. PULM/CHEST: Effort normal and breath sounds normal. No respiratory distress. No stridor. no wheezes. no rales. MUSC/SKEL: Normal range of motion. There is no peripheral edema, tenderness or deformity. NEURO: alert and oriented to person, place, and time. normal strength. No cranial nerve deficit or sensory deficit. Coordination and gait normal. GCS eye subscore is 4. GCS verbal subscore is 5. GCS motor subscore is 6. Cerebellar tests wnl. No clonus. NIHSS: 0 SKIN: Skin is warm and dry. not diaphoretic. PSYCH:normal mood and affect. Behavior is normal. Judgment and thought content normal. Course Course 1711: The patient was evaluated in room A10. A complete history and physical exam was performed Cardiac monitoring: An order was placed for continuous cardiac monitoring. The monitor shows a rate of 60 with sinus rhythm interpreted by me 192: Vital signs stable. Labs and imaging within normal limits. Patient will be admitted for MRI of the brain and neurology consult for strokelike symptoms. Discussed case with [facility] hospitalist Dr. Estrella who states he will evaluate the patient for admission. Administered Medications Discontinued Medications Ioversol (Optiray 320 125ml) 119 ml IV ONCE ONE Stop: 12/10/23 17:53 Last Admin: 12/10/23 17:52 Dose: 119 ml Documented By: THAO Medical Decision Making Laboratory Data Attestation: I reviewed the patient's lab results. 12/10/23 16:11 12/10/23 16:11 Lab Results 12/10/23 12/10/23 Range/Units 16:11 18:03 WBC 4.72 L (4.8-10.8) K/ul RBC 3.71 L (4.70-6.10) M/uL Hgb 12.9 L (14.0-18.0) g/dl Hct 37.4 L (42.0-52.0) % MCV 100.8 H (80.0-100.0) fL MCH 34.8 H (25.0-34.0) pg MCHC 34.5 (32.0-36.0) g/dL RDW Std Deviation 41.3 (36.4-46.3) fL RDW Coeff of Jaleel 11.1 L (11.5-14.5) % Plt Count 87 L (130-400) K/uL MPV 9.6 (9.4-12.4) fL PT 11.6 (9.0-12.0) Seconds INR 1.1 (0.9-1.1) APTT 31 (21-31) Seconds PTT Ratio 1.2 Sodium 129 L (136-145) mmol/L Potassium 4.6 (3.5-5.1) mmol/L Chloride 93 L (98-107) mmol/L Carbon Dioxide 32 (21-32) mmol/L Anion Gap 4 (3-11) BUN 28 H (6-23) mg/dl Creatinine 0.77 (0.6-1.4) mg/dl Est Cr Clr Drug Dosing 77.7 ml/min Est GFR ( Amer) 98.6 ml/min Est GFR (Non-Af Amer) 85.1 ml/min BUN/Creatinine Ratio 36.4 H (10-20) Glucose 113 H (70-99(Fasting)) mg/dl Calcium 9.3 (8.6-10.3) mg/dl Magnesium 2.0 (1.7-2.4) mg/dl Total Bilirubin 0.9 (0.2-1.0) mg/dl AST 12 L (13-39) U/L ALT 6 L (7-52) U/L Alkaline Phosphatase 60 (34-104) U/L Total Protein 6.9 (6.0-8.3) gm/dl Albumin 4.5 (3.4-5.0) gm/dl Globulin 2.4 L (2.5-4.0) gm/dl Albumin/Globulin Ratio 1.9 (0.9-2) Urine Color Yellow Urine Appearance Clear (Clear) Urine pH 5.5 (4.5-7.5) Ur Specific [place] 1.017 (1.000-1.030) Urine Protein Negative (Negative) Urine Glucose (UA) Negative (Negative) Urine Ketones Negative (Negative) Urine Blood Trace H (Negative) Urine Nitrite Negative (Negative) Urine Bilirubin Negative (Negative) Urine Urobilinogen Negative (Negative) Ur Leukocyte Esterase Negative (Negative) Urine WBC (Auto) 0-5 (0-5) /hpf Urine RBC (Auto) 0-2 (0-2) /hpf U Hyaline Cast (Auto) 0-2 (0-2) /lpf U Epithel Cells (Auto) 0-2 (0-2) /hpf Urine Bacteria (Auto) None Seen (None Seen) Imaging Data Radiologist's Impression: Neck CTA 12/10/23 00:00 CT angio neck with con, CT angio head w con, CT head/brain wo con CLINICAL HISTORY: cva symptoms TECHNIQUE: Contiguous axial CT images of the head were acquired from the base of the skull to the vertex without intravenous contrast administration. CT angiography of the head and neck was performed following intravenous administration of iodinated contrast. Coronal and sagittal MIPS were obtained from the axial data set and were submitted for review. Automated dose lowering techniques and/or adjustment according to patient size were utilized for this examination. All measurements were calculated based on NASCET criteria. CT DOSE: 1292.41 mGy.cm Comparison: None available at the time of this dictation. FINDINGS: CT head: Areas of decreased attenuation are present in the periventricular and subcortical white matter bilaterally consistent with small vessel ischemic disease. Generalized cerebral atrophy with commensurate enlargement of the ventricles, sulci, and cisterns is also present. There is no acute intracranial hemorrhage or evidence of acute territorial infarction. No shift of the midline structures, mass effect, or extra-axial abnormalities are shown. Atherosclerotic calcifications are present in the intracranial segments of the internal carotid arteries. Postsurgical changes of left craniotomy is seen with subpleural thickening. Lungs and soft tissues are unremarkable. CTA Neck: A 3 vessel aortic arch is shown. There is no significant atherosclerotic plaque in the aortic arch or the origins of the innominate, left common carotid, and left subclavian arteries. The common carotid, external carotid, cervical segments of the internal carotid arteries, and the cervical segments of the vertebral arteries are patent without hemodynamically significant stenosis. The right vertebral artery is dominant. The left vertebral artery terminates as PICA. CTA Head: The anterior and posterior cerebral circulations are patent. No hemodynamically significant stenosis, aneurysm, dissection, or arteriovenous malformation is shown. IMPRESSION: 1. No acute intracranial hemorrhage, evidence of acute territorial infarction, or other acute intracranial disease process. 2. No occlusion, hemodynamically significant stenosis, or dissection in the major cervical arteries. 3. No occlusion, hemodynamically significant stenosis, aneurysm, dissection, or arteriovenous malformation in the major intracranial arteries. Assessment of stenosis of the internal carotid arteries is based on NASCET criteria. ACT 112: Negative or not required by law. Electronically signed by: Ancelmo Salmon M.D. 12/10/2023 6:51 PM Chest X-Ray 12/10/23 16:05 XR chest 1V portable CLINICAL HISTORY: stroke alert TECHNIQUE: Single frontal radiograph of the chest was obtained. Comparison: Comparison is made to chest radiograph 05/09/2017 FINDINGS: Left reverse arthroplasty is seen. Aortic valvular prosthesis is seen. Calcification of the aortic arch is seen. The lungs are clear. No evidence of pleural effusion or pneumothorax. IMPRESSION: No acute chest disease. ACT 112: Negative or not required by law. Electronically signed by: Ancelmo Salmon M.D. 12/10/2023 5:[address] 12/10/23 16:05 CT angio neck with con, CT angio head w con, CT head/brain wo con CLINICAL HISTORY: cva symptoms TECHNIQUE: Contiguous axial CT images of the head were acquired from the base of the skull to the vertex without intravenous contrast administration. CT angiography of the head and neck was performed following intravenous administration of iodinated contrast. Coronal and sagittal MIPS were obtained from the axial data set and were submitted for review. Automated dose lowering techniques and/or adjustment according to patient size were utilized for this examination. All measurements were calculated based on NASCET criteria. CT DOSE: 1292.41 mGy.cm Comparison: None available at the time of this dictation. FINDINGS: CT head: Areas of decreased attenuation are present in the periventricular and subcortical white matter bilaterally consistent with small vessel ischemic disease. Generalized cerebral atrophy with commensurate enlargement of the ventricles, sulci, and cisterns is also present. There is no acute intracranial hemorrhage or evidence of acute territorial infarction. No shift of the midline structures, mass effect, or extra-axial abnormalities are shown. Atherosclerotic calcifications are present in the intracranial segments of the internal carotid arteries. Postsurgical changes of left craniotomy is seen with subpleural thickening. Lungs and soft tissues are unremarkable. CTA Neck: A 3 vessel aortic arch is shown. There is no significant atherosclerotic plaque in the aortic arch or the origins of the innominate, left common carotid, and left subclavian arteries. The common carotid, external carotid, cervical segments of the internal carotid arteries, and the cervical segments of the vertebral arteries are patent without hemodynamically significant stenosis. The right vertebral artery is dominant. The left vertebral artery terminates as PICA. CTA Head: The anterior and posterior cerebral circulations are patent. No hemodynamically significant stenosis, aneurysm, dissection, or arteriovenous malformation is shown. IMPRESSION: 1. No acute intracranial hemorrhage, evidence of acute territorial infarction, or other acute intracranial disease process. 2. No occlusion, hemodynamically significant stenosis, or dissection in the major cervical arteries. 3. No occlusion, hemodynamically significant stenosis, aneurysm, dissection, or arteriovenous malformation in the major intracranial arteries. Assessment of stenosis of the internal carotid arteries is based on NASCET criteria. ACT 112: Negative or not required by law. Electronically signed by: Ancelmo Salmon M.D. 12/10/2023 6:51 PM Head CTA 12/10/23 17:22 CT angio neck with con, CT angio head w con, CT head/brain wo con CLINICAL HISTORY: cva symptoms TECHNIQUE: Contiguous axial CT images of the head were acquired from the base of the skull to the vertex without intravenous contrast administration. CT angiography of the head and neck was performed following intravenous administration of iodinated contrast. Coronal and sagittal MIPS were obtained from the axial data set and were submitted for review. Automated dose lowering techniques and/or adjustment according to patient size were utilized for this examination. All measurements were calculated based on NASCET criteria. CT DOSE: 1292.41 mGy.cm Comparison: None available at the time of this dictation. FINDINGS: CT head: Areas of decreased attenuation are present in the periventricular and subcortical white matter bilaterally consistent with small vessel ischemic disease. Generalized cerebral atrophy with commensurate enlargement of the ventricles, sulci, and cisterns is also present. There is no acute intracranial hemorrhage or evidence of acute territorial infarction. No shift of the midline structures, mass effect, or extra-axial abnormalities are shown. Atherosclerotic calcifications are present in the intracranial segments of the internal carotid arteries. Postsurgical changes of left craniotomy is seen with subpleural thickening. Lungs and soft tissues are unremarkable. CTA Neck: A 3 vessel aortic arch is shown. There is no significant atherosclerotic plaque in the aortic arch or the origins of the innominate, left common carotid, and left subclavian arteries. The common carotid, external carotid, cervical segments of the internal carotid arteries, and the cervical segments of the vertebral arteries are patent without hemodynamically significant stenosis. The right vertebral artery is dominant. The left vertebral artery terminates as PICA. CTA Head: The anterior and posterior cerebral circulations are patent. No hemodynamically significant stenosis, aneurysm, dissection, or arteriovenous malformation is shown. IMPRESSION: 1. No acute intracranial hemorrhage, evidence of acute territorial infarction, or other acute intracranial disease process. 2. No occlusion, hemodynamically significant stenosis, or dissection in the major cervical arteries. 3. No occlusion, hemodynamically significant stenosis, aneurysm, dissection, or arteriovenous malformation in the major intracranial arteries. Assessment of stenosis of the internal carotid arteries is based on NASCET criteria. ACT 112: Negative or not required by law. Electronically signed by: Ancelmo Salmon M.D. 12/10/2023 6:51 PM ECG Data Attestation: I personally reviewed and interpreted this ECG as follows: Rate (beats per minute): 57 Rhythm: + normal sinus ECG Intervals/blocks: + First degree AV block, + Normal QRS and + Normal QT-c ECG ST segments: + Normal ST segments [facility] Narrative 1712: The patient was evaluated in room A10. A complete history and physical exam was performed Cardiac monitoring: An order was placed for continuous cardiac monitoring. The monitor shows a rate of 60 with sinus rhythm interpreted by me 1925: Vital signs stable. Labs and imaging within normal limits. Patient will be admitted for MRI of the brain and neurology consult for strokelike symptoms. Discussed case with [facility] hospitalist Dr. Estrella who states he will evaluate the patient for admission. Impression & Plan Stroke-like symptoms Discharge Plan Visit Data Chief Complaint: TIA Symptoms Stated Complaint: TIA SYMPTOMS ED Provider: Pk Viveros Discharge Problem: Stroke-like symptoms Patient Disposition: Being Evaluated by Hospitalist Forms Stand Alone Forms: My [facility] [place] [employer] Prescriptions Prescriptions: No Action cyanocobalamin (vitamin B-12) 500 mcg tablet 500 mcg PO QAM cefadroxil 500 mg capsule 500 mg PO BID 10 Days Qty: 20 0RF oxycodone 5 mg tablet 5 mg PO Q6 PRN (Reason: pain) Qty: 30 0RF psyllium Powder 1 tbsp PO BID Rx Instructions: mix into at least 8 oz of water or juice before administering amoxicillin 500 mg capsule 2,000 mg PO ONCE PRN (Reason: Other) Patient Comments: dental Eliquis 5 mg tablet 5 mg PO BID oxycodone 5 mg tablet 5 mg PO Q6H PRN (Reason: pain) Qty: 20 0RF acetaminophen 500 mg Tablet 1,000 mg PO TID fluticasone propionate [Flonase Allergy Relief] 50 mcg/actuation [place],Suspension 1 spray INTRANASAL QAM cholecalciferol (vitamin D3) [Vitamin D3] 10 mcg (400 unit) Tablet 400 unit PO QAM Systane (PF) 0.4-0.3 % Dropperette 1 drp OPHTHALMIC (EYE) UD PRN (Reason: Dry Eye(S)) Xiidra 5 % Dropperette 1 drp OPHTHALMIC (EYE) BID mupirocin calcium 2 % Cream 1 applic TOPICAL UD PRN (Reason: Skin Irritation) nystatin-triamcinolone Cream 1 applic TOPICAL UD PRN (Reason: Skin Irritation) metoprolol tartrate 50 mg Tablet 50 mg PO BID folic acid 1 mg Tablet 1 mg PO DAILY Referrals Referrals: Jose Angel Weeks DO [Primary Care Provider] -
--- NOTE | 2023-12-10 18:53 | CT Scan Report ---
CT angio neck with con, CT angio head w con, CT head/brain wo con CLINICAL HISTORY: cva symptoms TECHNIQUE: Contiguous axial CT images of the head were acquired from the base of the skull to the dia colette without intravenous contrast administration. CT angiography of the head and neck was performed f ollowing intravenous administration of iodinated contrast. Coronal and sagittal MIPS were obtained fr om the axial data set and were submitted for review. Automated dose lowering techniques and/or adjus tment according to patient size were utilized for this examination. All measurements were calculated based on NASCET criteria. CT DOSE: 1292.41 mGy.cm Comparison: None available at the time of this dictation. FINDINGS: CT head: Areas of decreased attenuation are present in the periventricular and subcortical white raji er bilaterally consistent with small vessel ischemic disease. Generalized cerebral atrophy with comme nsurate enlargement of the ventricles, sulci, and cisterns is also present. There is no acute intracr anial hemorrhage or evidence of acute territorial infarction. No shift of the midline structures, mas s effect, or extra-axial abnormalities are shown. Atherosclerotic calcifications are present in the intracranial segments of the internal carotid arteries. Postsurgical changes of left craniotomy is se en with subpleural thickening. Lungs and soft tissues are unremarkable. CTA Neck: A 3 vessel aortic arch is shown. There is no significant atherosclerotic plaque in the aor tic arch or the origins of the innominate, left common carotid, and left subclavian arteries. The co mmon carotid, external carotid, cervical segments of the internal carotid arteries, and the cervical segments of the vertebral arteries are patent without hemodynamically significant stenosis. The right vertebral artery is dominant. The left vertebral artery terminates as PICA. CTA Head: The anterior and posterior cerebral circulations are patent. No hemodynamically significan t stenosis, aneurysm, dissection, or arteriovenous malformation is shown. IMPRESSION: 1. No acute intracranial hemorrhage, evidence of acute territorial infarction, or other acute intrac ranial disease process. 2. No occlusion, hemodynamically significant stenosis, or dissection in the major cervical arteries. 3. No occlusion, hemodynamically significant stenosis, aneurysm, dissection, or arteriovenous malfor mation in the major intracranial arteries. Assessment of stenosis of the internal carotid arteries is based on NASCET criteria. ACT 112: Negative or not required by law. Electronically signed by: Ancelmo Salmon M.D. 12/10/2023 6:51 PM
[2023-12-10] MEDS: APIXABAN 5 MG TABLET PO STA (20:31)
[2023-12-10] MEDS: METOPROLOL TARTRATE 50 MG TAB PO STA (20:31)
--- NOTE | 2023-12-10 20:31 | History & Physical Report ---
Date of Service December 10, 2023 Assessment & Plan (1) Stroke-like symptoms: Plan: 83-year-old male with past medical history significant for chronic hyponatremia, obstructive sleep apnea nontolerant of CPAP, mild ascending aortic dilatation, paroxysmal atrial fibrillation, diastolic dysfunction, aortic stenosis s/p TAVR, history of CAD, history of compression fracture of spine, osteoarthritis, history of chronic thrombocytopenia, history of recurrent DVT, history of BPH, history of panic attacks, history of fall in 2021 with left subdural hematoma s/p craniotomy comes because of transient left eye vision loss. Patient states his left eye vision is not good as right eye and thought it was because of the dry eyes. But last Saturday he suddenly lost vision in the left eye but came back after 40 minutes. Today at noon again he lost left eye vision for about 45 minutes when he decided to go to [facility]. Was evaluated at ophthalmology office and his exam was okay and was advised to come to the ER for stroke workup. Has mild headache since he came to the ER. Sometimes has some dizziness. He has allergies and chronic postnasal drip and cough from it. Somewhat hard of hearing. No difficulty swallowing. Appetite is okay. No jennifer st pains. No shortness of breath. Currently no nausea. No abdominal pain. Somewhat constipated. Once in a while he gets hemorrhoidal bleed. Micturating okay ,Sometimes he has mild urinary incontinence and uses briefs in the nighttime. Ambulates with a cane. Currently resting comfortably and hemodynamically stable. Strokelike symptoms TIA Transient left eye vision loss CT head, CTA head and neck unremarkable MRI- showing small left SDH 6.1mm , chronic per radiology. Full stroke workup with echo will check lipid profile and HbA1c levels Speech evaluation PT OT evaluation Telemetry Will consult neurology in a.m. for further recommendations Chronic hyponatremia Sodium 129 Sodium generally low 130s and high 120s Will follow labs History of DVT On Eliquis Holding Eliquis for now for MRI findings of SDH. History of thrombocytopenia Platelet 87 History of Lovenox causing worsening thrombocytopenia Will follow labs Mild anemia and leukopenia Following with hematology Mild aortic root/ascending aortic dilatation Follow-up with cardio Chronic diastolic dysfunction Monitor for volume overload Episode of paroxysmal atrial fibrillation during hospital stay in March 2022 On Eliquis which is held for now. Hypertension On metoprolol Will monitor DVT prophylaxis scds Disposition Telemetry Full code. Addendum: MRI brain: Small left subdural fluid collection measuring 6.1 mm in maximal diameter without evidence of midline shift. D/W Radiology. Radiology thinks finding of small left SDH is chronic, mostly several weeks/months old. Advised to Follow Repeat CT head in am. Holding Eliquis for now. Patient also has history of fall in Mar 2022 with left SDH and s/p craniotomy and hematoma evacuation. History of Present Illness Chief Complaint: Transient left vision loss Primary Care Provider: Jose Angel Weeks DO 83-year-old male with past medical history significant for chronic hyponatremia, obstructive sleep apnea nontolerant of CPAP, mild ascending aortic dilatation, paroxysmal atrial fibrillation, diastolic dysfunction, aortic stenosis s/p TAVR, history of CAD, history of compression fracture of spine, osteoarthritis, history of chronic thrombocytopenia, history of recurrent DVT, history of BPH, history of panic attacks, history of fall in 2021 with subdural hematoma s/p craniotomy comes because of transient left eye vision loss. Patient states his left eye vision is not good as right eye and thought it was because of the dry eyes. But last Saturday he suddenly lost vision in the left eye but came back after 40 minutes. Today at noon again he lost left eye vision for about 45 minutes when he decided to go to [facility]. Was evaluated at ophthalmology office and his exam was okay and was advised to come to the ER for stroke workup. Has mild headache since he came to the ER. Sometimes has some dizziness. He has allergies and chronic postnasal drip and cough from it. Somewhat hard of hearing. No difficulty swallowing. Appetite is okay. No chest pains. No shortness of breath. Currently no nausea. No abdominal pain. Somewhat constipated. Once in a while he gets hemorrhoidal bleed. Micturating okay, Sometimes he has mild urinary incontinence and uses briefs in the nighttime. Ambulates with a cane. Currently resting comfortably and hemodynamically stable. Past medical history. As mentioned above Past surgical history. Colonoscopy. Left heart catheterization. EGD. Eyelid lining surgery. Laparoscopic cholecystectomy. Left craniotomy with evacuation of subdural hematoma. Right inguinal hernia repair. Bilateral cataracts. Status post TAVR. Left reverse total shoulder arthroplasty. Bilateral shoulder arthroscopy. Social history. no smoking. No alcohol use. No drug use. Family history. Mother had diabetes. Dementia. Father had heart disorder. Brother had leukemia. Brother has Parkinson's. Allergies Allergy/AdvReac Type Severity Reaction Status Date / Time aspirin AdvReac Unknown CANNOT Verified 08/14/23 15:48 TAKE DUE TO GASTRITIS celecoxib AdvReac Unknown RETIREMENT Verified 08/14/23 15:48 USE CAUSED SEVERE HEARTBURN codeine AdvReac Unknown GENERAL Verified 08/14/23 15:48 ILL FEELING enoxaparin [From Lovenox] AdvReac Unknown thrombocyto Verified 08/14/23 15:48 penia finasteride AdvReac Unknown CAUSED Verified 08/14/23 15:48 GASTRITIS garlic AdvReac Unknown stomach Verified 08/14/23 15:48 cramp, diarrhea heparin AdvReac Unknown "not to be Verified 08/14/23 15:48 used with Eliquis" per pt hydrocodone AdvReac Unknown vomiting Verified 08/14/23 15:48 hydromorphone [From Dilaudid] AdvReac Unknown constipatio Verified 08/14/23 15:48 n ibuprofen AdvReac Unknown CANNOT Verified 08/14/23 15:48 TAKE DUE TO GASTRITIS lidocaine AdvReac Unknown lidocaine Verified 08/14/23 15:48 patch --> sinus infection loratadine AdvReac Unknown RACING Verified 08/14/23 15:48 HEART onion AdvReac Unknown upset Verified 08/14/23 15:48 stomach/diarrhea oxycodone AdvReac Unknown "KNOCKS ME Verified 08/14/23 15:48 OUT" pseudoephedrine AdvReac Unknown RACING Verified 08/14/23 15:48 HEART rofecoxib AdvReac Unknown GENERAL Verified 08/14/23 15:48 ILL FEELING valdecoxib AdvReac Unknown GENERAL Verified 08/14/23 15:48 ILL FEELING Home Medications Medication Instructions Recorded Confirmed Type cyanocobalamin (vitamin B-12) 500 500 mcg PO QAM 04/01/20 12/10/23 History mcg tablet acetaminophen 500 mg tablet 1,000 mg PO Q8 PRN mild/moderate 06/15/20 12/10/23 History pain cholecalciferol (vitamin D3) 10 400 unit PO QAM 06/15/20 12/10/23 History mcg (400 unit) tablet (Vitamin D3) fluticasone propionate 50 2 spray intranasal QAM 06/15/20 12/10/23 History mcg/actuation nasal spray,suspension (Flonase Allergy Relief) lifitegrast 5 % eye drops in a 1 drp OPB BID 06/15/20 12/10/23 History dropperette (Xiidra) psyllium 2 tsp PO BID 11/28/20 12/10/23 History amoxicillin 500 mg capsule 2,000 mg PO ONCE PRN 30-60 min 12/12/22 12/10/23 History prior to dentist apixaban 5 mg tablet (Eliquis) 5 mg PO BID 12/12/22 12/10/23 History folic acid 1 mg tablet 1 mg PO QAM 02/01/23 12/10/23 History metoprolol tartrate 50 mg tablet 50 mg PO BID 02/01/23 12/10/23 History dextran 70-hypromellose (PF) 0.1 1 drp ophthalmic (eye) HS 12/10/23 12/10/23 History %-0.3 % eye drops in a dropperette (Artificial Tears (PF)) loratadine 10 mg disintegrating 10 mg PO DAILY PRN allergies 12/10/23 12/10/23 History tablet (Alavert) mupirocin calcium 2 % topical cream 1 applic topical TID 12/10/23 12/10/23 History nystatin-triamcinolone 100,000 1 applic topical UD 12/10/23 12/10/23 History unit/g-0.1 % topical cream Past Med/Surg History Problem List (Updated 12/10/23 @ 19:27 by Pk Viveros MD) Stroke-like symptoms (Acute) Wears hearing aid in both ears Zabrina Doritarichadr P50R disp 02/01/22 Status post reverse total replacement of left shoulder (~02/2023) DVT (deep venous thrombosis) (Chronic) Thrombocytopenia (Chronic) Diastolic CHF (Chronic) Arthritis Bronchitis Nocturia Duodenal mass reason for upcoming colonoscopy & EGD Abdominal pain r/t duodenal mass? reason for upcoming colonoscopy & EGD Encounter for pre-operative examination Colon polyp Abnormal CT of the abdomen Benign localized prostatic hyperplasia with lower urinary tract symptoms (LUTS) Hip pain, right Leg length discrepancy Right inguinal hernia Sensorineural hearing loss (SNHL) of both ears Auditory hallucination Medical History Paroxysmal atrial fibrillation on Eliquis Subdural hematoma 03/2022, follows with [facility] neuro Hearing loss s/p hearing aids bilat History of blood transfusion alejandra-operatively 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 Roger History of duodenal ulcer MAY 2020 - RESOLVED History of gastritis Lumbar spinal stenosis Pt unable to stand > 15 min in same space per PAT RN call Injury of right hip multiple times -- treated with physical therapy Deep vein thrombosis x2 both DVT Right leg s/p shoulder surgery and the other after extended driving. Eliquis. (2004 & 2006) SCC (squamous cell carcinoma) s/p excision BCC (basal cell carcinoma) s/p excision Sleep apnea not currently on treatment Thrombocytopenia per [facility] heme onc, usual range 100,000-110,000-pre-op 01/2023: 87,000 On anticoagulant therapy Anemia monitoring per [facility] heme/onc Spinal fracture 2009 (L5 & L10 & L12) s/p fall Gout last flare yrs ago PSVT (paroxysmal supraventricular tachycardia) ~1744-6244, treated in [facility]. no problems since 2012. Surgical History History of cardiac cath Feb 2022 > [place] > no stents Hx of hernia repair Right Open Inguinal Hernia Repair with [facility] H/O aortic valve repair August 2022 > [place] Brain bleed subdural hematoma-hospitalized at [place] Mar 2022 > due to a fall > surgical repair > was in ICU 11 days > Coumadin had been DC'ed was off thinner for a while, now on Eliquis History of esophagogastroduodenoscopy (EGD) History of cataract surgery bilateral History of cholecystectomy History of colonoscopy Status post Mohs surgery HX History of surgical removal of skin lesion H/O shoulder surgery bilateral Family History Father Heart disease Brother Heart disease Cancer Leukemia Social History Smoking Status: Never smoker Second Hand Exposure: No; Do You Dip or Chew Tobacco: No; Hx Alcohol Use: No Hx Substance Use: No Preferred Language: Czech Communication Ability: Effective Account Executive Key Accounts Required: No Beliefs That Will Affect Care: None marital status: Current Living Situation: Spouse current occupational status: retired Other Information That Helps Us Care for You: No Feels Safe at Home: Yes Diet: regular Assistive Devices: Cane and Hearing Aid - Bilateral Review of Systems Review of Systems: All systems reviewed & are unremarkable except as noted in HPI & below Physical Exam Physical Exam: General- Not in distress Head- atraumatic Eyes- PERRL, EOMI, vision ok ENT- oropharynx clear Neck- supple, no JVD. Lungs- clear to auscultation no wheezing or crackles Heart- regular rate and rhythm; no murmur, no gallop Abdomen- normal bowel sounds, soft, nontender, no distension Extremities- no pretibial edema, Neuro- alert, oriented PERRL, EOMI; no facial palsy; no dysarthria; motor 5/5 bilaterally; no pronator drift, co ordination of movements normal, sensations and position sense intact Skin- warm & dry Results & Data Results & Data Vital Signs (Past 12 Hours) Vital Signs Temp Pulse Pulse Resp BP BP Pulse Ox 12/10/23 19:00 55 L 19 128/64 99 12/10/23 18:08 56 L 16 155/67 H 98 12/10/23 17:01 59 L 12/10/23 17:00 58 L 15 135/62 97 12/10/23 16:39 59 L 15 179/80 H 97 12/10/23 16:01 36.7 C 67 18 199/87 H 98 O2 Del Method 12/10/23 19:00 Room Air 12/10/23 18:08 Room Air 12/10/23 17:01 12/10/23 17:00 Room Air 12/10/23 16:39 Room Air 12/10/23 16:01 Room Air Diagnostic Findings Laboratory Results WBC 4.72 K/ul (4.8-10.8) L 12/10/23 16:11 RBC 3.71 M/uL (4.70-6.10) L 12/10/23 16:11 Hgb 12.9 g/dl (14.0-18.0) L 12/10/23 16:11 Hct 37.4 % (42.0-52.0) L 12/10/23 16:11 MCV 100.8 fL (80.0-100.0) H 12/10/23 16:11 MCH 34.8 pg (25.0-34.0) H 12/10/23 16:11 MCHC 34.5 g/dL (32.0-36.0) 12/10/23 16:11 RDW Std Deviation 41.3 fL (36.4-46.3) 12/10/23 16:11 RDW Coeff of Jaleel 11.1 % (11.5-14.5) L 12/10/23 16:11 Plt Count 87 K/uL (130-400) L 12/10/23 16:11 MPV 9.6 fL (9.4-12.4) 12/10/23 16:11 PT 11.6 Seconds (9.0-12.0) 12/10/23 16:11 INR 1.1 (0.9-1.1) 12/10/23 16:11 APTT 31 Seconds (21-31) 12/10/23 16:11 PTT Ratio 1.2 12/10/23 16:11 Sodium 129 mmol/L (136-145) L 12/10/23 16:11 Potassium 4.6 mmol/L (3.5-5.1) 12/10/23 16:11 Chloride 93 mmol/L (98-107) L 12/10/23 16:11 Carbon Dioxide 32 mmol/L (21-32) 12/10/23 16:11 Anion Gap 4 (3-11) 12/10/23 16:11 BUN 28 mg/dl (6-23) H 12/10/23 16:11 Creatinine 0.77 mg/dl (0.6-1.4) 12/10/23 16:11 Est Cr Clr Drug Dosing 77.7 ml/min 12/10/23 16:11 Est GFR ( Amer) 98.6 ml/min 12/10/23 16:11 Est GFR (Non-Af Amer) 85.1 ml/min 12/10/23 16:11 BUN/Creatinine Ratio 36.4 (10-20) H 12/10/23 16:11 Glucose 113 mg/dl (70-99(Fasting)) H 12/10/23 16:11 Calcium 9.3 mg/dl (8.6-10.3) 12/10/23 16:11 Magnesium 2.0 mg/dl (1.7-2.4) 12/10/23 16:11 Total Bilirubin 0.9 mg/dl (0.2-1.0) 12/10/23 16:11 AST 12 U/L (13-39) L 12/10/23 16:11 ALT 6 U/L (7-52) L 12/10/23 16:11 Alkaline Phosphatase 60 U/L (34-104) 12/10/23 16:11 Total Protein 6.9 gm/dl (6.0-8.3) 12/10/23 16:11 Albumin 4.5 gm/dl (3.4-5.0) 12/10/23 16:11 Globulin 2.4 gm/dl (2.5-4.0) L 12/10/23 16:11 Albumin/Globulin Ratio 1.9 (0.9-2) 12/10/23 16:11 Urine Color Yellow 12/10/23 18:03 Urine Appearance Clear (Clear) 12/10/23 18:03 Urine pH 5.5 (4.5-7.5) 12/10/23 18:03 Ur Specific [place] 1.017 (1.000-1.030) 12/10/23 18:03 Urine Protein Negative (Negative) 12/10/23 18:03 Urine Glucose (UA) Negative (Negative) 12/10/23 18:03 Urine Ketones Negative (Negative) 12/10/23 18:03 Urine Blood Trace (Negative) H 12/10/23 18:03 Urine Nitrite Negative (Negative) 12/10/23 18:03 Urine Bilirubin Negative (Negative) 12/10/23 18:03 Urine Urobilinogen Negative (Negative) 12/10/23 18:03 Ur Leukocyte Esterase Negative (Negative) 12/10/23 18:03 Urine WBC (Auto) 0-5 /hpf (0-5) 12/10/23 18:03 Urine RBC (Auto) 0-2 /hpf (0-2) 12/10/23 18:03 U Hyaline Cast (Auto) 0-2 /lpf (0-2) 12/10/23 18:03 U Epithel Cells (Auto) 0-2 /hpf (0-2) 12/10/23 18:03 Urine Bacteria (Auto) None Seen (None Seen) 12/10/23 18:03 Impressions Neck CTA 12/10/23 00:00 CT angio neck with con, CT angio head w con, CT head/brain wo con CLINICAL HISTORY: cva symptoms TECHNIQUE: Contiguous axial CT images of the head were acquired from the base of the skull to the vertex without intravenous contrast administration. CT angiography of the head and neck was performed following intravenous administration of iodinated contrast. Coronal and sagittal MIPS were obtained from the axial data set and were submitted for review. Automated dose lowering techniques and/or adjustment according to patient size were utilized for this examination. All measurements were calculated based on NASCET criteria. CT DOSE: 1292.41 mGy.cm Comparison: None available at the time of this dictation. FINDINGS: CT head: Areas of decreased attenuation are present in the periventricular and subcortical white matter bilaterally consistent with small vessel ischemic disease. Generalized cerebral atrophy with commensurate enlargement of the ventricles, sulci, and cisterns is also present. There is no acute intracranial hemorrhage or evidence of acute territorial infarction. No shift of the midline structures, mass effect, or extra-axial abnormalities are shown. Atherosclerotic calcifications are present in the intracranial segments of the internal carotid arteries. Postsurgical changes of left craniotomy is seen with subpleural thickening. Lungs and soft tissues are unremarkable. CTA Neck: A 3 vessel aortic arch is shown. There is no significant atherosclerotic plaque in the aortic arch or the origins of the innominate, left common carotid, and left subclavian arteries. The common carotid, external carotid, cervical segments of the internal carotid arteries, and the cervical segments of the vertebral arteries are patent without hemodynamically significant stenosis. The right vertebral artery is dominant. The left vertebral artery terminates as PICA. CTA Head: The anterior and posterior cerebral circulations are patent. No hemodynamically significant stenosis, aneurysm, dissection, or arteriovenous malformation is shown. IMPRESSION: 1. No acute intracranial hemorrhage, evidence of acute territorial infarction, or other acute intracranial disease process. 2. No occlusion, hemodynamically significant stenosis, or dissection in the major cervical arteries. 3. No occlusion, hemodynamically significant stenosis, aneurysm, dissection, or arteriovenous malformation in the major intracranial arteries. Assessment of stenosis of the internal carotid arteries is based on NASCET criteria. ACT 112: Negative or not required by law. Electronically signed by: Ancelmo Salmon M.D. 12/10/2023 6:51 PM Chest X-Ray 12/10/23 16:05 XR chest 1V portable CLINICAL HISTORY: stroke alert TECHNIQUE: Single frontal radiograph of the chest was obtained. Comparison: Comparison is made to chest radiograph 05/09/2017 FINDINGS: Left reverse arthroplasty is seen. Aortic valvular prosthesis is seen. Calcification of the aortic arch is seen. The lungs are clear. No evidence of pleural effusion or pneumothorax. IMPRESSION: No acute chest disease. ACT 112: Negative or not required by law. Electronically signed by: Ancelmo Salmon M.D. 12/10/2023 5:[address] 12/10/23 16:05 CT angio neck with con, CT angio head w con, CT head/brain wo con CLINICAL HISTORY: cva symptoms TECHNIQUE: Contiguous axial CT images of the head were acquired from the base of the skull to the vertex without intravenous contrast administration. CT angiography of the head and neck was performed following intravenous administration of iodinated contrast. Coronal and sagittal MIPS were obtained from the axial data set and were submitted for review. Automated dose lowering techniques and/or adjustment according to patient size were utilized for this examination. All measurements were calculated based on NASCET criteria. CT DOSE: 1292.41 mGy.cm Comparison: None available at the time of this dictation. FINDINGS: CT head: Areas of decreased attenuation are present in the periventricular and subcortical white matter bilaterally consistent with small vessel ischemic disease. Generalized cerebral atrophy with commensurate enlargement of the ventricles, sulci, and cisterns is also present. There is no acute intracranial hemorrhage or evidence of acute territorial infarction. No shift of the midline structures, mass effect, or extra-axial abnormalities are shown. Atherosclerotic calcifications are present in the intracranial segments of the internal carotid arteries. Postsurgical changes of left craniotomy is seen with subpleural thickening. Lungs and soft tissues are unremarkable. CTA Neck: A 3 vessel aortic arch is shown. There is no significant atherosclerotic plaque in the aortic arch or the origins of the innominate, left common carotid, and left subclavian arteries. The common carotid, external car otid, cervical segments of the internal carotid arteries, and the cervical segments of the vertebral arteries are patent without hemodynamically significant stenosis. The right vertebral artery is dominant. The left vertebral artery terminates as PICA. CTA Head: The anterior and posterior cerebral circulations are patent. No hemodynamically significant stenosis, aneurysm, dissection, or arteriovenous malformation is shown. IMPRESSION: 1. No acute intracranial hemorrhage, evidence of acute territorial infarction, or other acute intracranial disease process. 2. No occlusion, hemodynamically significant stenosis, or dissection in the major cervical arteries. 3. No occlusion, hemodynamically significant stenosis, aneurysm, dissection, or arteriovenous malformation in the major intracranial arteries. Assessment of stenosis of the internal carotid arteries is based on NASCET criteria. ACT 112: Negative or not required by law. Electronically signed by: Ancelmo Salmon M.D. 12/10/2023 6:51 PM Head CTA 12/10/23 17:22 CT angio neck with con, CT angio head w con, CT head/brain wo con CLINICAL HISTORY: cva symptoms TECHNIQUE: Contiguous axial CT images of the head were acquired from the base of the skull to the vertex without intravenous contrast administration. CT angiography of the head and neck was performed following intravenous admi nistration of iodinated contrast. Coronal and sagittal MIPS were obtained from the axial data set and were submitted for review. Automated dose lowering techniques and/or adjustment according to patient size were utilized for this examination. All measurements were calculated based on NASCET criteria. CT DOSE: 1292.41 mGy.cm Comparison: None available at the time of this dictation. FINDINGS: CT head: Areas of decreased attenuation are present in the periventricular and subcortical white matter bilaterally consistent with small vessel ischemic disease. Generalized cerebral atrophy with commensurate enlargement of the ventricles, sulci, and cisterns is also present. There is no acute intracranial hemorrhage or evidence of acute territorial infarction. No shift of the midline structures, mass effect, or extra-axial abnormalities are shown. Atherosclerotic calcifications are present in the intracranial segments of the internal carotid arteries. Postsurgical changes of left craniotomy is seen with subpleural thickening. Lungs and soft tissues are unremarkable. CTA Neck: A 3 vessel aortic arch is shown. There is no significant atherosclerotic plaque in the aortic arch or the origins of the innominate, left common carotid, and left subclavian arteries. The common carotid, external carotid, cervical segments of the internal carotid arteries, and the cervical segments of the vertebral arteries are patent without hemodynamically significant stenosis. The right vertebral artery is dominant. The left vertebral artery terminates as PICA. CTA Head: The anterior and posterior cerebral circulations are patent. No hemodynamically significant stenosis, aneurysm, dissection, or arteriovenous malformation is shown. IMPRESSION: 1. No acute intracranial hemorrhage, evidence of acute territorial infarction, or other acute intracranial disease process. 2. No occlusion, hemodynamically significant stenosis, or dissection in the major cervical arteries. 3. No occlusion, hemodynamically significant stenosis, aneurysm, dissection, or arteriovenous malformation in the major intracranial arteries. Assessment of stenosis of the internal carotid arteries is based on NASCET criteria. ACT 112: Negative or not required by law. Electronically signed by: Ancelmo Salmon M.D. 12/10/2023 6:51 PM ECG Additional Comments: ECG. Sinus bradycardia with first-degree AV block. Rate of 57. QTc 401 Code Status & VTE Plan VTE Prophylaxis Plan VTE Prophylaxis will be ordered: Yes
[2023-12-10] MEDS ORDERED: PHARMACIST DISCHARGE MED REC CONSULT PRN (21:38)
[2023-12-10] MEDS ORDERED: NITROGLYCERIN SL 0.4 MG/TAB TAB SL PRN (21:38)
[2023-12-10] MEDS ORDERED: ACETAMINOPHEN 325 MG TAB PO PRN (21:38)
[2023-12-10] MEDS ORDERED: POLYETHYLENE (MIRALAX) 17 GM PACK PO PRN (21:38)
[2023-12-10] MEDS: ARTIFICIAL TEARS OPB PRN (22:13)
[2023-12-10] MEDS: SODIUM CHLORIDE 0.9% 1,000 ML IV SCH (22:13)
[2023-12-10] MEDS: GADOBUTROL 65ML VIAL IV ONE (23:55)
--- NOTE | 2023-12-11 01:19 | Magnetic Resonance Report ---
Exam(s): MRI HEAD W/WO Contrast IV Amt: 7.5cc gadavist EXAM: MR Head Without and With Intravenous Contrast CLINICAL HISTORY: Reason for exam: TIA, transient left eye vison loss. TECHNIQUE: Magnetic resonance images of the head/brain without and with intravenous contrast in multiple planes. CONTRAST: Patient received 7.5cc gadavist of IV contrast COMPARISON: Prior head CT from December 10, 2023. FINDINGS: Brain: Small left subdural fluid collection measuring 6.1 mm in maximal diameter. Mild nonspecific white matter changes. No mass. No hemorrhage. No acute infarct. The flow voids of the base of the brain are intact. Normal enhancement the brain parenchyma. The dural venous sinuses are patent. Ventricles: Unremarkable. No ventriculomegaly. Bones/joints: Moderate left craniotomy. No acute fracture. Sinuses: Unremarkable as visualized. No acute sinusitis. Mastoid air cells: There is a small amount of fluid in the left mastoid air cells. No mastoid effusion. Orbits: Unremarkable as visualized. IMPRESSION: No evidence of acute intracranial pathology. Small left subdural fluid collection measuring 6.1 mm in maximal diameter without evidence of midline shift. Mild nonspecific white matter changes. Electronically signed by: Piper Josue MD 12/11/23 01:18 AM
--- OUTSIDE RECORDS SUMMARY | 2023-12-11 03:08 | External Medical Summary | Summary of Care ---
Author Name Unknown Organization [facility] Address [address] [facility] [place] [address] Phone [phone] Care Team Providers Care Hvac Operations Technician Name Role Phone MickyJose Angel DO Primary Care Provider [phone] Encounter Details Date Type Department Care Team (Late st Contact Info) Description 12/02/2023 Orders Only PATIENT PORTAL DO NOT DELETE THIS DEPT USED BY [place] [id number] Allergies Active Allergy Reactions Criticality Noted Date [...] as of this encounter (statuses as of 12/02/2023) Medications Medication Sig Dispensed Refills Start Date End Date Status ALAVERT [address] one pill on tongue once daily as needed for allergies 30 Tab 5 10/21/2012 Active VITAMIN B-12 500 MCG PO TABSIndications:Vit rojas B 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 10/22/2012 Active fluticasone (FLONASE) 50 MCG/ACT nasal sprayIndications:Ch ronic rhinitis USE TWO SPRAYS IN EACH NOSTRIL ONCE DAILY 16 g 4 10/27/2014 Active Vitamin D3 10 MCG (400 UNIT) Oral Tablet (cholecalciferol) Take 1 Tablet by mouth in the morning. Active Artificial Tears 0.1-0.3 % Ophthalmic Solution (Dextran 70-Hypromellose) Instill into eye at bedtime. Active Konsyl Original Formula 100 % Oral Powder (Psyllium)Indicatio ns:Drug-induced constipation Take two teaspoons by mouth twice daily (patient home med) 660 g 5 05/18/2022 Active Additional Information Patient taking differently: Take one teaspoons by mouth twice daily (patient home med), Reported on 2023 Acetaminophen 500 MG Oral Tablet (Tylenol) Take 2 Tablets by mouth every 8 hours as needed for Pain, Mild or Pain, Moderate. 09/12/2022 Active Xiidra 5 % Ophthalmic Solution INSTILL ONE DROP IN EACH EYE TWO TIMES A DAY 180 Each 4 09/18/2022 12/21/2023 Active Additional Information Patient taking differently: Before breakfast and before dinner, Reported on 2023 Mupirocin Calcium 2 % External Cream (Bactroban) Apply topically to affected area 3 times a day. Opening area on face. 30 g 3 01/29/2023 Active Additional Information Patient taking differently:Topical TID(AM/NOON/HS),Opening area on face. Using 1-2 times weekly, Reported on 2023 Metoprolol Tartrate 50 MG Oral Tablet (Lopressor)Indicati ons:Paroxysmal atrial fibrillation (HCC) Take 1 Tablet by mouth in the morning and 1 Tablet before bedtime. 180 Tablet 3 05/20/2023 Active Folic Acid 1 MG Oral Tablet TAKE ONE TABLET BY MOUTH EVERY MORNING 30 Tablet 5 06/24/2023 Active Eliquis 5 MG Oral Tablet (Apixaban)Indicatio ns:History of recurrent deep vein thrombosis (DVT) TAKE ONE TABLET BY MOUTH EVERY MORNING AND 1 TABLET BEFORE BEDTIME 60 Tablet 5 06/24/2023 Active Nystatin-Triamcinol one 805799-4.1 UNIT/GM-% External Cream (Mycolog)Indication s:Chronic dermatitis APPLY TOPICALLY NEEDED DIRECTED BY PHYSICIAN, uses in groin 30 g 2 11/04/2023 Active documented as of this encounter (statuses as of 12/02/2023) Active Problems Problem Noted Date Diagnosed Date Panic attacks 06/04/2023 Paroxysmal atrial fibrillation 01/29/2023 Obstructive sleep apnea of adult 01/29/2023 Status post transcatheter ao rtic valve replacement (TAVR) using bioprosthesis 09/04/2022 Aortic ectasia 05/18/2022 Atherosclerosis of [place] co 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 angina pectoris 05/18/2022 Personal history of fall 04/19/2022 History of subdural hematoma 04/18/2022 Lumbar degenerative disc disease 07/25/2021 Benign prostatic hyperplasia with urinary freque ncy 12/19/2020 Chronic hyponatremia 12/19/2020 Generalized osteoarthritis of multiple sites 10/2018 Mild ascending aorta dilatation 10/10/2017 Mild aortic valve regurgitation 10/10/2017 History of nonmelanoma skin cancer 09/05/2017 Overview: BCC left chest 09/12 BCC right upper back BCC left evangelical History of compression fracture of spine 018 Overview: Winter , T10, L5 - traumatic 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 leg, recurrent Diastolic dysfunction 07/06/2016 Thrombocytopenia 06/05/2013 detention current use of anticoagulant therapy 0 10/21/2012 Overview: ICD-10 update of inactive term Insomnia Chronic rhinitis documented as of this encounter (statuses as of 12/02/2023) Resolved Problems Problem Noted Date Diagnosed Date Resolved Date Hypertensive heart disease with heart failure 05/18/19 23 01/29/2023 Supraventricular tachycardia 05/18/2022 01/29/2023 Closed fracture of proximal end of left humerus 04/19/2022 06/04/2023 Aortic stenosis 03/20/2022 05/18/2022 Severe aortic valve stenosis 05/20/2019 09/05/2022 Premature atrial contractions 10/10/2017 09/12/2022 Heart failure, diastolic, due to HTN 03/16/2016 07/06/2016 Dry eyes 04/16/2013 08/27/2017 Anticoagulation management encounter 10/21/2012 09/12/2022 Deep vein thrombosis 018 Basal cell carcinoma 018 documented as of this encounter (statuses as of 12/02/2023) Immunizations Name Administration Dates Next Due COVID-19 mRNA, LNP-s, No Pre serve, 2-Dose Series ([employer]) 08/02/2021,02/13/2021,07/28/2020,06/27 COVID-19, MRNA-LNP, 23-24, P F, 30 MCG/0.3 mL, 12 YRS AND ABOVE, IM (DNA Guide-[facility]) 02/12/2023 Covid-19, Mrna, Lnp-s, Pf, B ivalent, 30 Mcg, IM, 12 yrs and above (Pfizer) 10/11/2022,01/30/2022 Pneumococcal Conjugate Vacc, 13 Valent (Prevnar) 03/15/2015 Pneumococcal Polysaccharide PPV23 (Pneumovax) 10/22/2011 RSV Vac., Bivalent, Perfusio n F, Pf,0.5 Ml (Abrysvo) 2023 Seasonal Influenza, PF, 6 M & above, IM , (FluLaval or Fluzone) 01/29/2020,01/10/2018 Seasonal Influenza, Quadriva lent Hd (Fluzone [...] Answer Date Recorded PHQ Adult Total Score 0 06/21/2023 Hunger Vital Sign Answer Date Recorded Within the past 12 months, y ou worried that your food would run out before you got the money to buy more. Never true 06/04/19 24 Within the past 12 months, t he food you bought just didn't last and you didn't have money to get more. Never true 06/04/2023 Childcare Answer Date Recorded Do you feel overwhelmed with taking care of a child, family member or friend? No 06/04/2023 Does your family need help f inding childcare? (Household - for ages 0-17 years) Not on file 06/04/2023 Clothing Answer Date Recorded Have you been unable to get clothing when it was really needed? No 06/04/2023 Is your family able to get c lothes or diapers when needed? (Household - for ages 0-17 years) Not on file 06/04/2023 Personal Safety Answer Date Recorded Do you feel unsafe or have concerns for your saf ety? No 06/04/2023 Do you have concerns for you r family's safety? (Household - for ages 0-17 years) Not on file 06/04/2023 Utilities Answer Date Recorded Do you have trouble paying y our heating, water, or electric bill? No 06/04/2023 Is your family able to pay t he heat, water, or electric bill? (Household - for ages 0-17 years) Not on file 06/04/2023 Does your family have access to good internet? (Household - for ages 0-17 years) Not on file 06/04/2023 Employment Status Answer Date Recorded Are you unemployed or without regular income? No 06/04/2023 Does the household have a re gular source of income? (Household - for ages 0-17 years) Not on file 06/04/2023 Social Connections Answer Date Recorded How often do you feel lonely or isolated from th ose around you? Never 06/04/2023 Financial Resource Strain Answer Date R ecorded Do you have any trouble payi ng for your medications, or do you think you might in the future? No 06/04/2023 Does your family have troubl e paying for medicine? (Household - for ages 0-17 years) Not on file 06/04/2023 Transportation Needs Answer Date Record ed READ ONLY Do you have troubl e getting a ride to medical visits or work? Never True 06/04/2023 Does your family have a hard time getting a ride to doctors visits? (Household - for ages 0-17 years) Not on file 06/04/2023 Has lack of transportation k ept you from medical appointments, meetings, work, or from getting things needed for daily living? Check all that apply. (Adult - for ages 18 years and over) Not on file 06/04/2023 Do you (or your family) have trouble finding or paying for a ride (transportation)? (Household - for ages 0-17 years) Not on file 06/04/2023 Housing Stability Answer Date Recorded Do you currently live in a s helter or have no steady place to sleep at night? No 06/04/2023 READ ONLY Do you think you a re at risk of becoming homeless? No 06/04/2023 Does your family worry about paying for your home or becoming homeless? (Household - for ages 0-17 years) Not on file 0 06/04/2023 Are you homeless or worried that you might be in the future? (Adult - for ages 18 years and over) Not on file Are you (or your family) prasad eless or worried that you might be in the future? (Household - for ages 0-17 years) Not on file Food Insecurity Answer Date Recorded Do you need food for this week? No 06/04/2023 Are you able to get enough f ood for your family? (Household - for ages 0-17 years) Not on file 06/04/2023 Does your family need food t his week? (Household - for ages 0-17 years) Not on file 06/04/2023 Do you always have enough fo od for your family? (Household - for ages 0-17 years) Not on file 06/04/2023 Sex and Gender Information Value Date Recorded [...] or making decisions? (5 years old or older) No 09/04/2022 documented as of this encounter Plan of Treatment Upcoming Encounters Date Type Department Care Team (Late st Contact Info) Description 12/02/2023 2:00 PM EDT Office Visit Family Practice [address], [place] [address] [place] [address] [facility] Weeks[facility] [address] [facility] [address] 12/09/2023 2:15 PM EDT Office Visit Dermatology [facility] [place] [address] [place], [place] [address] Jacky Arroyo MD [address] [facility] [place] [address] 04/07/2024 10:00 AM EST Laboratory Laboratory [facility] [address] [facility] [place] [id number] [facility] [address] [facility] [place] [address] 04/14/2024 2:15 PM EST Office Visit Hematology/Oncology [facility] [address] [facility] [place], [place] [phone] Edmar Meeks MD [address] [facility] [place] [address] 07/30/2024 1:30 PM EDT Office Visit Neurology [facility] [address] [facility] [place], [place] [address] Nataliya Vieyra PA-C [address] [facility] [place] [address] 10/28/2024 2:30 PM EDT Cardiac Studies Cardiac Studies, [facility] [address] [facility] [place] [address] Scheduled Procedures Name Priority Associated Diagnoses Date/Ti me ESOPHAGOGASTRODUODENOSCOPY ( EGD), FLEXIBLE, TRANSORAL, DIAGNOSTIC Recall Gastric polyps COLONOSCOPY FLEXIBLE PROXIMAL DIAGNOSTIC Recall History of colonic polyps Health Maintenance Due Date Last Done Comments COVID-19 Vaccine ( season) 2023 02/12/2023, 10/11/2022, 01/30/2022, Additional history exists Influenza Vaccine (FLU shot) (#1) 2023 01/29/2023, 02/07/2022, 01/17/2021, Additional history exists Depression Screening 06/21/2024 06/21/2023 Colonoscopy 06/24/2025 06/24/2020, 08/28, 09/18/2016 DTaP,Tdap,and Td Vaccines (3 - Td or Tdap) 03/16/2026 03/16/2016, 10/21/2004 Pneumococcal Vaccine: 65+ Years Completed 03/15/2015, 10/22/2011 Zoster Vaccines Completed 06/27/2018, 09/2017, 09/19/2017, Additional history exists RETIRED - COLONOSCOPY-EVERY 5 YRS AGES 18-100 Discontinued 06/24/2020, 09/18/2016, 09/18/2016 HPV (Gardasil) Vaccine Aged Out No lo nger eligible based on patient's age to complete this topic Hepatitis B Vaccine Aged Out No longe r eligible based on patient's age to complete this topic MENINGOCOCCAL (MENACTRA/MENVEO) Aged Out No longer eligible based on patient's age to complete this topic documented as of this encounter Medical Devices Implanted Type Area Operations Supervisor Device Identifier Shelf Expiration Date Model / Serial / Lot Graft Lyoplant 10.0x12.5cm 4x5 - [id number] - [id number] Implanted:Qty : 1 on 04/20/2022 by Prudencio Sung III, MD at OR [facility] Left: Head B JEFFERY : [employer] [id number] 09/26/2026 [id number] / [id number] / [id number] Mesh Ti Lo Mal Sm Arc 421.536 - [id number] Implanted:Qty : 1 on 04/20/2022 by Prudencio Sung III, MD at OR [facility] Left: Head SYNTHES MAXILLOFACIAL 421.536 / / Screw Ti Lo Pro Sd 4mm 400.834 - [id number] Implanted:Qty : 13 on 04/20/2022 by Prudencio Sung III, MD at OR [facility] Left: Head [employer]ES MAXILL[employer] 400.834 / / Cover Bur Hol Ti Lo 17 421.527 - [id number] Implanted:Qty : 4 on 04/20/2022 by Prudencio Sung III, MD at OR [facility] Left: Head SY[employer]ES MAXILL[employer] 421.527 / / Cover Winnie Hole 17mm 421.554 - [id number] Implanted:Qty : 1 on 04/20/2022 by Prudencio Sung III, MD at OR [facility] Left: Head SYN[employer]ES MAXILL[employer]IAL 421.554 / / Valve Tavr Jayson 29mm - [id number] Implanted:Qty : 1 on 09/05/2022 by Alexis Crenshaw MD at CARDIAC LABS [facility] [employer] [id number] 03/08/2023 [id number] / / documented as of this encounter Advance Directives Documents on File Type Date Recorded Patient Senior Bioinformatics Specialist Expl anation Advance Directives and Living Will 03/19/2022 LIVING WILL-LIVING W ILL * Full Code (Latest Code Status on File) Date Activated Date Inactivated Comments 09/04/2022 4:40 PM 09/05/2022 6:38 PM This order re flects the patients wishes and were consensually agreed upon. Question Answer Comments Discussion of Advance Directives occurred with: Patient * No Code Date Activated Date Inactivated Comments 04/18/2022 7:23 PM 04/28/2022 5:35 PM This order reflects the patients wishes and were consensually agreed upon. Question Answer Comments Discussion of Advance Directives occurred with: Patient Healthcare Agents on File Name Relationship Healthcare Agent Relationshi p Communication Sujata Peterson Spouse First Alternate Health Care Agent (per Health Care Power of Retail Field Merchandiser document) Care Teams Hvac Operations Technician Relationship Specialty Start Date End Date Jose Angel Weeks DO [address] [place] [address] PCP - General Internal Medicine 11/25/23 documented as of this encounter
--- OUTSIDE RECORDS SUMMARY | 2023-12-11 03:08 | External Medical Summary ---
Author Name Unknown Address Unknown Organization [id number][place] [place] [address] [place] [address] Laboratory Report Ordering Provider Test Date Status SANJEEV BENAVIDES 12/09/2023 14:55:47 Final Observation Date Value Abnormality Reference (Units ) Status BUN 12/09/2023 14:55:47 27 Above high normal 6-20 (mg/dL) Final Creatinine 12/09/2023 14:55:47 0.9 0.6-1.2 (mg/dL) Final Glomerular filtration rate/1.73 sq M.predicted [Volume Rate/Area] in Serum, Plasma or Blood by Creatinine-based formula (CKD-EPI) 12/09/2023 14:55:47 86 >=60 (mL/min) Final eGFR is calculated based on the CKD-EPI 2020 equation. Sodium 12/09/2023 14:55:47 131 Below low normal 135 -146 (mmol/L) Final Potassium 12/09/2023 14:55:47 4.9 3.5-5.1 (m mol/L) Final Cl 12/09/2023 14:55:47 90 Below low normal 98- 107 (mmol/L) Final CO2 12/09/2023 14:55:47 28 22-32 (mmo l/L) Final Anion gap 12/09/2023 14:55:47 13 7-15 (mmol /L) Final Glucose 12/09/2023 14:55:47 100 70-120 (mg /dL) Final Calcium 12/09/2023 14:55:47 9.3 8.4-10.2 ( mg/dL) Final Performing Location [facility] [place] [address] [place] [address]
--- OUTSIDE RECORDS SUMMARY | 2023-12-11 03:08 | External Medical Summary | Summary of Care ---
Author Name Unknown Organization [facility] Address [address] [place] [address] Phone [phone] Care Team Providers Care Manager Inventory Control Name Role Phone Pat Weeks DO Primary Care Provider [phone] Reason for Visit * Reason Onset Date Comments Medication Refill 11/30/2023 Encounter Details Date Type Department Care Team (Late st Contact Info) Description 11/30/2023 Refill Family Practice [address], [place] [address] [place] [phone] Pat Weeks DO [address] [place] [address] History of recurrent deep vein thrombosis (DVT) Allergies Active Allergy Reactions Criticality Noted Date Comments Ibuprofen 12/12/2013 Aspirin 07/03/2021 Other reaction(s): CANNOT TAKE DUE TO GASTRITIS Valdecoxib 03/03/2013 General ill feeling Celecoxib Other (Please comment) 08/27/2017 intermediate card tender use caused heart-burn Codeine 12/12/2022 Other Reaction(s): [...] 10/21/2012 Active VITAMIN B-12 500 MCG PO TABSIndications:Vi tamin B 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 10/22/2012 Active fluticasone (FLONASE) 50 MCG/ACT nasal sprayIndications:C hronic rhinitis USE TWO SPRAYS IN EACH NOSTRIL ONCE DAILY 16 g 4 10/27/2014 Active Vitamin D3 10 MCG (400 UNIT) Oral Tablet (cholecalciferol) Take 1 Tablet by mouth in the morning. Active Artificial Tears 0.1-0.3 % Ophthalmic Solution (Dextran 70-Hypromellose) Instill into eye at bedtime. Active Konsyl Original Formula 100 % Oral Powder (Psyllium)Indicati ons:Drug-induced constipation Take two teaspoons by mouth twice [...] A DAY 180 Each 4 09/18/2022 Active Additional Information Patient taking differently: Before breakfast and before dinner, Reported on 2023 Mupirocin Calcium 2 % External Cream (Bactroban) Apply topically to affected area 3 times a day. Opening area on face. 30 g 3 01/29/2023 Active Additional Information Patient taking differently:Topical TID(AM/NOON/HS),Opening area on face. Using 1-2 times weekly, Reported on 2023 Metoprolol Tartrate 50 MG Oral Tablet (Lopressor)Indicat ions:Paroxysmal atrial fibrillation (HCC) Take 1 Tablet by mouth in the morning and 1 Tablet before bedtime. 180 Tablet 3 05/20/2023 Active Nystatin-Triamcino lone 554070-9.1 UNIT/GM-% External Cream (Mycolog)Indicatio ns:Chronic dermatitis APPLY TOPICALLY NEEDED DIRECTED BY PHYSICIAN, uses in groin 30 g 2 11/04/2023 Active Folic Acid 1 MG Oral Tablet Take 1 Tablet by mouth in the morning. In the morning.. 90 Tablet 3 12/02/2023 Active Apixaban 5 MG Oral Tablet (Eliquis)Indicatio ns:History of recurrent deep vein thrombosis (DVT) Take 1 Tablet by mouth in the morning and 1 Tablet before bedtime. 180 Tablet 3 12/02/2023 Active Folic Acid 1 MG Oral Tablet TAKE ONE TABLET BY MOUTH EVERY MORNING 30 Tablet 5 06/24/2023 4 Discontinue d(Refill) Eliquis 5 MG Oral Tablet (Apixaban)Indicati ons:History of recurrent deep vein thrombosis (DVT) TAKE ONE TABLET BY MOUTH EVERY MORNING AND 1 TABLET BEFORE BEDTIME 60 Tablet 5 06/24/2023 4 Discontinue d(Refill) documented as of this encounter (statuses as of 12/02/2023) Active Problems Problem Noted Date Diagnosed Date Panic attacks 06/04/2023 Paroxysmal atrial fibrillation 01/29/2023 Obstructive sleep apnea of adult 01/29/2023 Status post transcatheter ao rtic valve replacement (TAVR) using bioprosthesis 09/04/2022 Aortic ectasia 05/18/2022 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 In the morning..Authorizing Provider: PAT WEEKS Apixaban 5 MG Oral Tablet (Eliquis) 180 Ta*3 Sig: Take 1 Tablet by mouth in the morning and 1 Tablet before bedtime.Authorizing Provider: PAT WEEKS * Telephone Encounter - Nadira Laws [facility] - 12/02/2023 8:20 AM EDTPending Prescriptions: Disp Refills Folic Acid 1 MG Oral Tablet 90 Tab*3 Sig: Take 1 Tablet by mouth in the morning. In the morning.. Apixaban 5 MG Oral Tablet (Eliquis) 180 Ta*3 Sig: Take 1 Tablet by mouth in the morning and 1 Tablet before bedtime. * Telephone Encounter - Nadira Laws Elizab, [facility] - 12/02/2023 8:18 AM EDT Did you pend patient's preferred pharmacy and medication before forwarding?yes Pharmacy: [facility] [id number] Pending Prescriptions: Disp Refills Folic Acid 1 MG Oral Tablet 90 Tab*3 Sig: Take 1 Tablet by mouth in the morning. In the morning.. Apixaban 5 MG Oral Tablet (Eliquis) 180 Ta*3 Sig: Take 1 Tablet by mouth in the morning and 1 Tablet before bedtime. Last Visit: 08/23/2023 (in office), Visit date not found (telemedicine) Next Visit: 12/02/2023 If no future appointments scheduled, and last appointment is greater than a year ago, please schedule patient for a follow-up appointment Last date the medication was ordered: 06/24/23 Is this request for a controlled substance?No Urine Drug Screen: Results for orders placed or performed during the hospital encounter of 04/18/22 TOXICOLOGY, URINE SCREEN W/ CONFIRMATION Result Value Amphetamines Screen, U Negative Benzodiazepines Screen, U Negative Cannabinoids Screen, U Negative Cocaine Metabolite Screen, U Negative Fentanyl Screen, U Positive (A) Hydrocodone Screen, U Negative Methadone Metabolite Screen, U Negative Morphine/Codeine Screen, U Negative Oxycodone Screen, U Positive (A) Narrative Cutoff Concentrations: Drug Level [...] reflexed to confirmatory testing. Patient Phone Numbers Labs: Lab Results Component Value Date/Time CREAT 1.0 11/28/2023 03:05 PM CREAT 0.91 02/11/2023 12:00 AM CREAT 0.9 05/16/2020 12:45 PM POTASSIUM 5.2 (H) 11/28/2023 03:05 PM POTASSIUM 4.8 02/11/2023 12:00 AM POTASSIUM 4.5 05/16/2020 12:45 PM TSH 1.58 11/28/2023 03:05 PM TSH 3.58 04/18/2020 10:46 AM LDLCALC 53 08/19/2023 11:06 AM LDLCALC 58 12/17/2019 10:44 AM LDLDIRECT NOT APPLICABLE 12/17/2019 10:44 AM ALT 8 (L) 08/19/2023 11:06 AM ALT 8 (L) 05/04/2020 02:54 PM HGBA1C 5.3 06/13/2012 12:00 AM documented in this encounter Plan of Treatment Upcoming Encounters Date Type Department Care Team (Late st Contact Info) Description 12/02/2023 2:00 PM EDT Office Visit Family Practice [address] [facility] [address] [place] [address] Pat Weeks DO 293 [place] [address] 12/09/2023 2:15 PM EDT Office Visit Dermatology [facility] [address] [facility] [place] [address] Jacky Arroyo MD 200 [place] [address] 04/07/2024 10:00 AM EST Laboratory Laboratory [facility] [address] [facility] [place] [phone] [facility] Lab [facility] [address] [facility] [place] [address] 04/14/2024 2:15 PM EST Office Visit Hematology/Oncology [facility] [address] [facility] [place] [phone] Edmar Meeks MD 200 [facility] [place] [address] 07/30/2024 1:30 PM EDT [facility] [address] [place] [address] Nataliya Vieyra PA-C [address] [facility] [place] [address] 10/28/2024 2:30 PM EDT Cardiac Studies Cardiac Studies, [facility] [address] [facility] [place] [address] Scheduled Procedures Name Priority Associated Diagnoses Date/Ti [...] this encounter Medical Devices Implanted Type Area Underpresser Hand Device Identifier Shelf Expiration Date Model / Serial / Lot Graft Lyoplant 10.0x12.5cm 4x5 - [id number] - [id number] Implanted:Qty : 1 on 04/20/2022 by [place]udencio Sung III[place] [facility] [place]: Head B JEFFERY : GIRISHP [id number] 09/26/2026 [id number] / [id number] / [id number] Mesh Ti Lo Mal Sm Arc 421.536 - [id number] Implanted:Qty : 1 on 04/20/2022 by Prudencio Sung III, [place] [facility]: Head SYNTHES MAXILLOFACIAL 421.536 / / Screw Ti Lo Pro Sd 4mm 400.834 - [id number] Implanted:Qty : 13 on 04/20/2022 by Prudencio Sung III[place] [facility]: Head SYNTHES MAXILLOFACIAL 400.834 / / Cover Bur Hol Ti Lo 17 421.527 - [id number] Implanted:Qty : 4 on 04/20/2022 by Prudencio Sung III[place] [facility]: Head SYNTHES MAXILLOFACIAL 421.527 / / Cover [place] 17mm 421.554 - [id number] Implanted:Qty : 1 on 04/20/2022 by Prudencio Sung III, [place] [facility]: Head SYNTHES MAXILLOFACIAL 421.554 / / Valve Tavr Jayson 29mm - [id number] Implanted:Qty : 1 on 09/05/2022 by Alexis Crenshaw MD at [facility] [employer] [id number] 03/08/2023 [id number] / / documented as of this encounter Visit Diagnoses Diagnosis History of recurrent deep vein thrombosis (DVT) documented in this encounter Advance Directives Documents on File Type Date Recorded Patient Face Hardener Expl anation Advance Directives and Living Will [...] Agents on File Name Relationship Healthcare [facility] Sujata Peterson Spouse First Alternate Health Care Agent (per Health Care Power of Cardiology Teacher document) Care Teams Manager Inventory Control Relationship Specialty Start Date End Date Pat Weeks DO [address] [place] [address] PCP - General Internal Medicine 11/25/23 documented as of this encounter
--- OUTSIDE RECORDS SUMMARY | 2023-12-11 03:08 | External Medical Summary | Summary of Care ---
Author Name Unknown Organization [facility] Address [address] [place] [address] Phone [phone] Care Team Providers Care Chiller Hand Name Role Phone MickyPat DO Primary Care Provider [phone] Reason for Visit * Reason Comments Skin Check Skin check - one are a on R side of face. Pressure ulcer on bottom. Using Desenex. Healing in last 2 weeks Encounter Details Date Type Department Care Team (Late st Contact Info) Description 12/09/2023 2:15 PM EDT Office Visit Dermatology [facility] 200 [facility] [place] [address] Jacky Arroyo MD 200 [facility] [place] [address] Actinic skin damage*; Seborrheic keratoses; Hx of basal cell carcinoma; Hx of squamous cell carcinoma; Scar; Pressure injury of right buttock, stage 1 Allergies Active Allergy Reactions Criticality Noted Date [...] as of this encounter (statuses as of 12/09/2023) Medications Medication Sig Dispensed Refills Start Date [...] before bedtime. 180 Tablet 3 05/20/2023 Active Nystatin-Triamcinol one 923632-9.1 UNIT/GM-% External Cream (Mycolog)Indication s:Chronic dermatitis APPLY TOPICALLY NEEDED DIRECTED BY PHYSICIAN, uses in groin 30 g 2 11/04/2023 Active Folic Acid 1 MG Oral Tablet Take 1 Tablet by mouth in the morning. In the morning.. 90 Tablet 3 12/02/2023 Active Apixaban 5 MG Oral Tablet (Eliquis)Indication s:History of recurrent deep vein thrombosis (DVT) Take 1 Tablet by mouth in the morning and 1 Tablet before bedtime. 180 Tablet 3 12/02/2023 Active documented as of this encounter (statuses as of 12/09/2023) Active Problems Problem Noted Date Diagnosed Date Panic attacks 06/04/2023 Paroxysmal atrial fibrillation 01/29/2023 Obstructive sleep apnea of adult 01/29/2023 Status post transcatheter ao rtic valve replacement (TAVR) using bioprosthesis 09/04/2022 Aortic ectasia 05/18/2022 Atherosclerosis of qagan tayagungin co 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 angina pectoris 05/18/2022 [...] 09/12 BCC right upper back BCC left jew History of compression fracture of spine 018 Overview: Winter , T10, L5 - traumatic 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 leg, recurrent Diastolic dysfunction 07/06/2016 Thrombocytopenia 06/05/2013 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 0 10/21/2012 Overview: ICD-10 update of inactive term Insomnia Chronic rhinitis documented as of this encounter (statuses as of 12/09/2023) Resolved Problems Problem Noted Date Diagnosed Date [...] as of this encounter (statuses as of 12/09/2023) Immunizations Name Administration Dates Next Due COVID-19 mRNA, LNP-s, No Pre serve, 2-Dose Series ([facility]) 08/02/2021,02/13/2021,07/28/2020,06/27 COVID-19, MRNA-LNP, 23-24, P F, 30 MCG/0.3 mL, 12 YRS AND ABOVE, IM ([facility] 02/12/2023 Covid-19, Mrna, Lnp-s, Pf, B ivalent, 30 Mcg, IM, 12 yrs and above ([facility]) 10/11/2022,01/30/2022 Pneumococcal Conjugate Vacc, 13 Valent (Prevnar) [...] No 06/04/2023 Does the household have a [facility] source of income? (Household - for ages [...] as of this encounter Progress Notes * Jacky Arroyo MD - 12/09/2023 2:17 PM EDT SUBJECTIVE: Chief Complaint: Chief Complaint Patient presents with Skin Check Skin check - one area on R side of face. Pressure ulcer on bottom. Using Desenex. Healing in last 2weeks HPI: Alec Peterson is a 83 year old male seen for a full skin check for history of nonmelanoma skin cancer. Here with Has a spot on right side of face that is bothersome at times Pressure ulcer on buttocks. Saw PCP for this. Using desitin, seems to be improving. 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 REVIEW OF SYSTEMS: CONSTITUTIONAL: negative SKIN: No new or changing moles or rashes other than those noted in HPI HEME/LYMPH: No new or enlarging lumps or bumps OBJECTIVE: GEN: Elderly, but alert, no distress, appears oriented, pleasant, and cooperative SKIN: Detailed exam of hair, face, trunk, arms, and legs Right buttocks - faint erythema, no erosion or ulceration Well-healed scar(s) at primary site(s) without evidence of recurrence Scattered on face, chest, back - diffuse mottled hypopigmented and hyperpigmented macules without significant irregularity. Associated telangiectasias At the trunk and extremities are several scattered isaac/brown hyperkeratotic stuck on appearing waxypapules. ASSESSMENT/PLAN: Stage 1 pressure ulcer - continue desitin, emphasized offloading pressure Scar(s), History of Nonmelanoma Skin Cancer - Well healed scar(s) with no evidence of recurrence - Recommended periodic skin exams and instructed to call clinic if patient notices any changing lesions, including rapid enlargement, changes in color or shape or symptoms, bleeding, or other concerns. The common features and behavior of non-melanoma skin cancers (e.g. basal cell carcinoma/squamouscell carcinoma) as well as the features of melanoma were also reviewed. -Daily sun protection recommended including physical (i.e. clothing) and chemical blockers. Broad spectrum sunscreens with at least SPF 30 for UVA and UVA protection were recommended. Chronic Actinic Damage - Discussed that skin changes are due to chronic sun exposure. - Daily sun protection recommended as discussed above Seborrheic keratoses - The benign nature of these lesions was discussed with the patient and that no treatment is indicated today. Jacky Arroyo MD REF: SELF [address] ADDRESS AVAILABLE PCP: PAT WEEKS [address] [place] [address] [phone] documented in this encounter Nursing Notes * May Reyez LPN - 12/09/2023 2:11 PM EDT Chief Complaint Patient presents with Skin Check Skin check - one area on R side of face. Pressure ulcer on bottom. Using Desenex. Healing in last 2weeks documented in this encounter Plan of Treatment Upcoming Encounters Date Type Department Care Team (Late st Contact Info) Description 04/06/2024 2:00 PM EST Office Visit Family Practice [address], [place] [address] [facility], [place] [address] Pat Weeks, [facility] [address] 04/07/2024 10:00 AM EST Laboratory Laboratory [facility] [address] [place] [phone] [facility] 200 [facility] [place] [address] 04/14/2024 2:15 PM EST Office Visit Hematology/Oncology [facility] [address] [place] [phone] Edmar Meeks MD 200 [facility] [place] [address] 07/30/2024 1:30 PM EDT Office Visit Neurology [facility] 200 [facility] [place] [address] Nataliya Vieyra PA-C [facility] [place] [address] 10/28/2024 2:30 PM EDT Cardiac Studies Cardiac Studies, [facility] [address] [facility] [place] [address] 12/11/2024 2:00 PM EDT Office Visit Dermatology [facility] 200 [facility] [place] [address] Jacky Arroyo MD 200 [facility] [place] [address] Scheduled Procedures Name Priority Associated Diagnoses Date/Ti me ESOPHAGOGASTRODUODENOSCOPY ( EGD), FLEXIBLE, TRANSORAL, DIAGNOSTIC Recall Gastric polyps COLONOSCOPY FLEXIBLE PROXIMAL DIAGNOSTIC Recall History of colonic polyps Health Maintenance Due Date Last Done Comments Adult Wellness Visit 08/19/2015 08/18/2014 Influenza Vaccine (FLU shot) (#1) 2023 01/29/2023, 02/07/2022, 01/17/2021, Additional history exists COVID-19 Vaccine ( season) 2024 02/12/2023, 10/11/2022, 01/30/2022, Additional history exists Postponed from 06/15/2023 (Unavailable) Depression Screening 06/21/2024 06/21/2023 Colonoscopy 06/24/2025 06/24/2020, [...] this encounter Medical Devices Implanted Type Area Assembly Machine Offbearer Device Identifier Shelf Expiration Date Model / Serial / Lot Graft Lyoplant 10.0x12.5cm 4x5 - [id number] - [id number] Implanted:Qty : 1 on 04/20/2022 [place] [facility] [place] Head B JEFFERY : [id number] 09/26/2026 [id number] / [id number] / [id number] Mesh Ti Lo Mal Sm Arc 421.536 - [id number] Implanted:Qty : 1 on 04/20/2022 by Prudencio Sung III[place] [facility] [place]: Head SYNTHES MAXILLOFACIAL 421.536 / / Screw Ti Lo Pro Sd 4mm 400.834 - [id number] Implanted:Qty : 13 on 04/20/2022 by Prudencio Sung III[place] [facility] [place]: Head SYNTHES MAXILLOFACIAL 400.834 / / Cover Bur Hol Ti Lo 17 421.527 - [id number] Implanted:Qty : 4 on 04/20/2022 by Prudencio Sung III, [place] [facility] [place]: Head SYNTHES MAXILLOFACIAL 421.527 / / Cover [place] Hole 17mm 421.554 - [id number] Implanted:Qty : 1 on 04/20/2022 by Prudencio Sung III[place] [facility] [place]: Head SYNTHES MAXILLOFACIAL 421.554 / / Valve Tavr Jayson 29mm - [id number] Implanted:Qty : 1 on 09/05/2022 by Alexis Crenshaw [place] [facility] [employer] [id number] 03/08/2023 [id number] / / documented as of this encounter Visit Diagnoses Diagnosis Actinic skin damage- Primary Other dermatitis due to solar radiation Seborrheic keratoses Hx of basal cell carcinoma Personal history of other malignant neoplasm of skin Hx of squamous cell carcinoma Personal history of malignant neoplasm of other site Scar Scar condition and fibrosis of skin Pressure injury of right buttock, stage 1 documented in this encounter Advance Directives Documents on File Type Date Recorded Patient [place] Or Nursery 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
--- OUTSIDE RECORDS SUMMARY | 2023-12-11 03:08 | External Medical Summary | Summary of Care ---
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 Name Role Phone Jose Angel Weeks DO Primary Care Provider [phone] Reason for Visit * Reason Comments Follow Up Encounter Details Date Type Department Care Team (Latest Contact Info) Description 12/02/2023 2:00 PM EDT Office Visit Family Practice [facility] [address] [place] [address] Jose Angel Weeks DO [address] [place] [address] Paroxysmal atrial fibrillation (HCC)*; Thrombocytopenia (HCC); Chronic hyponatremia; History of recurrent deep vein thrombosis (DVT); Status post transcatheter aortic valve replacement (TAVR) using bioprosthesis; Obstructive sleep apnea of adult; History of compression fracture of spine; Benign prostatic hyperplasia with urinary frequency; Atherosclerosis of [place] coronary artery of [place] heart without angina pectoris; Risk and functional assessment Allergies Active Allergy Reactions Criticality Noted Date Comments Ibuprofen 12/12/2013 Aspirin 07/03/2021 Other reaction(s): CANNOT TAKE DUE TO GASTRITIS Valdecoxib 03/03/2013 General ill feeling Celecoxib Other (Please comment) 08/27/2017 skilled nursing use caused heart-burn Codeine 12/12/2022 Other Reaction(s): [...] 180 Tablet 3 05/20/2023 Active Nystatin-Triamcinol one 766749-6.1 UNIT/GM-% External Cream (Mycolog)Indication s:Chronic dermatitis APPLY [...] bioprosthesis 09/04/2022 Aortic ectasia 05/18/2022 Atherosclerosis of match[place] co 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 angina pectoris 05/18/2022 [...] 09/12 BCC right upper back BCC left spiritism History of compression fracture of spine 018 Overview: Winter , T10, L5 - traumatic 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 leg, recurrent Diastolic dysfunction 07/06/2016 Thrombocytopenia 06/05/2013 skilled nursing current use of anticoagulant therapy 0 10/21/2012 [...] mRNA, LNP-s, No Pre serve, 2-Dose Series ([employer]) 08/02/2021,02/13/2021,07/28/2020,06/27 COVID-19, MRNA-LNP, 23-24, P F, 30 MCG/0.3 mL, 12 YRS AND ABOVE, IM [facility] 02/12/2023 Covid-19, Mrna, Lnp-s, Pf, B [...] No 06/04/2023 Does the household have a [facility] source of income? (Household - for ages [...] Sign Reading Time Taken Comments Blood Pressure 124/64 12/02/2023 2:34 PM EDT Pulse 53 12/02/2023 2:34 PM EDT Temperature 36.6 C (97.8 F) 12/02/2023 2:34 PM ED T Respiratory Rate 18 12/02/2023 2:34 PM EDT Oxygen Saturation 98% 12/02/2023 2:34 PM EDT Inhaled Oxygen Concentration - - Weight 77.9 kg (171 lb 11.2 oz) 12/02/2023 2:34 PM EDT Height - - Body Mass Index 24.64 08/23/2023 2:20 PM EDT documented in this encounter Functional [...] this encounter Patient Instructions * Patient Instructions* Aaliyah Patterson RN - 12/02/2023 2:27 PM EDT Patient Instructions - Fall Prevention (This education is for all patients over 65 regardless of symptoms) Remember to take your current medications as prescribed. In order to prevent falls, you are encouraged to: Exercise Utilize assistive/adaptive devices Avoid multifocal lenses when walking Avoid hazards in home Maintain a regular toileting schedule Any questions please contact our office. Preventing Falls in the Home (This education is for all patients over 65 regardless of symptoms) As you get older, falls are more likely. Thats because your reaction time slows. Your muscles and joints may also get stiffer, making them less flexible. Illness, medications, and vision changes can also affect your balance. A fall could leave you unable to live on your own. To make your home safer, follow these tips: Floors Put nonskid pads under area rugs Remove throw rugs Replace worn floor coverings Tack carpets firmly to each step on carpeted stairs. Put nonskid strips on the edges of uncarpeted stairs Keep floors and stairs free of clutter and cords Arrange furniture so there are clear pathways Clean up any spills right away Bathrooms Install grab bars in the tub or shower Apply nonskid strips or put a nonskid rubber mat in the tub or shower Sit on a bath chair to bathe Use bathmats with nonskid backing Lighting Keep a flashlight in each room Put a nightlight along the pathway between the bedroom and the bathroom [employer] Patient Education Copyright 2008 - 2010 [place] except where otherwise noted Preventing Falls: Exercises to Improve Balance, Flexibility, Strength, and Staying Power (This education is for all patients over 65 regardless of symptoms) Certain types of exercises may help make you less likely to fall. Try the ones below. Or do other exercises that your healthcare provider suggests. Depending on your health, you may need to start slowly. Dont let that stop you. Even small amounts of exercise can help you. Be sure to talk to yourhealthcare provider before starting any exercise program. Improve Balance Many types of exercise can help improve balance. Tylor chi and yoga are good examples. Heres another one to try. You can do it anytime and almost anywhere. Stand next to a counter or solid support. Push yourself up onto your tiptoes. Hold for 5 seconds. If you start to lose your balance, hold on to the counter. Rest and repeat 5 times. Work up to holding for 20 to 30 seconds, if you can. Increase Flexibility Being more flexible makes it easier for you to move around safely. Try exercises like the seated hamstring stretch. Sit in a chair and put one foot on a stool. Straighten your leg and reach with both hands down either side of your leg. Reach as far down your leg as you can. Hold for about 20 seconds. Go back to the starting position. Then repeat 5 times. Switch legs. Build Strength Resistance exercises help build strength. You can do them without equipment. Or you can use weights, elastic bands, or special machines. One such exercise is called the biceps curl. You can hold a 1 pound weight or even a can of soup. Do this exercise at least 3 times a week. Strive for everyday. Sit up straight in a chair. Keep your elbow close to your body and your wrist straight. Bend your arm, moving your hand up to your shoulder. Then slowly lower your arm. Repeat 5 times. Switch to the other arm. Build Your Staying Power Aerobic exercises make your heart and lungs stronger so you can keep moving longer. Walking and swimming are two of the best types of exercises you can do. Using a stationary bike is great, too. Find an aerobic exercise that you enjoy. Start slowly and build up. Even 5 minutes is helpful. Aimfor a goal of 30 minutes, at least 3 times a week. You dont have to do 30 minutes in one session. Break it up and walk a little throughout the day. More Helpful Tips Start easy. Slowly work up to doing more. Talk with your healthcare provider about the best exercises for you. Call senior centers or health clubs about exercise programs. If needed, have a family member watch you walk every so often to check your stability. Exercise with a friend. Choose an activity you both enjoy. Try exercises that you can do anytime, anywhere. Here are two examples. Have someone with you when you first try these: Practice walking by placing one foot right in front of the other. Stand up and sit down 10 times. Repeat this throughout the day. [employer] Patient Education Copyright 2008 - 2010 [employer] except where otherwise noted. Preventing Falls: Moving Safely Using a Cane or Walker (This education is for all patients over 65 regardless of symptoms) Keep the cane away from your feet so you dont trip. A walking aid, such as a cane or walker, can help you stay more independent and avoid falls. Remember to keep your walking aid within easy reach when youre in a chair or in bed. And learn how to use it safely so you dont injure yourself. Using a Cane If you have a stronger side, hold the cane on that side. Get your balance. Move the cane and your weaker leg forward. Support your weight on both the cane and your weaker side. Step with your stronger leg. Start again from step 1. If youre using a folding walker, be sure you know how to lock it open. Check that its locked open before each use. Using a Walker Roll the walker (or lift it, if youre using one without wheels) forward about 12 inches. Step forward with your weaker leg first. Use the walker to help keep your balance. Bring your other foot forward to the center of the walker. Start again from step 1. Helpful Tips Check with your healthcare provider about the right walking aid to use. Ask about a walker with a seat attached. Check the tips of your cane or walker to make sure they have nonskid covers. Move slowly from room to room. Dont walton. Sit down to get dressed. Use a brandon pack or backpack to keep your hands free. Get help for jobs that mean climbing, even on a stepstool. [employer] Patient Education Copyright 2008 - 2010 [place]andon except where otherwise noted. Treating Urinary Incontinence in Men (This education is for all patients over 65 regardless of symptoms) You can't always control the release of urine. You may leak urine. Or you may not be able to hold your urine until you can get to a bathroom. This is called urinary incontinence. The problem can be managed. Talk to your doctor about your treatment options. Taking Medications Prescription medications may help you. They may: Help the sphincter to work better. (This is the muscle that closes to keep urine from leaking out of the bladder.) Help stop the bladder from vita too often to push urine out. Help the bladder muscles contract with more force. Help relax the sphincter muscle and allow urine to flow more freely. Making Changes to Your Routine Certain changes in your daily routine may help. These include: Avoiding caffeine and alcohol. Using timed voiding. This is following a schedule for drinking fluids and urinating. Doing Kegel exercises daily. These exercises involve tightening the muscles in your sphincter and around your bladder to help strengthen them. Your doctor can explain how to do them. Using a Catheter A catheter is a narrow tube that is inserted through the urethra into the bladder. It drains urine.A condom catheter covers the penis. It channels urine into a collection bag. It is worn most of thetime. Intermittent catheterization means inserting a catheter to drain the bladder, then removing it. This is done on a regular schedule. Having Surgery If other options don't work, surgery may be recommended. If surgery is an option, your healthcare provider can discuss it with you and explain its risks and benefits. Healing After Prostate Surgery Surgery on the prostate gland can cause incontinence. Most often, the incontinence is only for a short time. It clears up when healing is complete. Very rarely, prostate surgery can result in permanent incontinence. documented in this encounter Progress Notes * Jose Angel Weeks, - 12/02/2023 2:53 PM EDT SUBJECTIVE: Alec Peterson is a 83 year old male. Chief Complaint Patient presents with Follow Up HPI: Patient is an 83 year old male with a history of recurrent lower extremity DVT in 2003, TAVRon 09/04/2022, Atrial Fibrillation, Thrombocytopenia, left reverse shoulder replacement on 03/11/2023, mild ascending aorta enlargement, Lumbar DDD, Postraumatic Vertebral Compression fracture, BPH, CHF , traumatic SDH evacuation in 03/2022, and Anxiety that is seen for follow up. The patient has lowsodium level. He was walking in the middle of the day in the heat. He is now using his treadmill. He has fatigue as well. No chest pain or shortness of breath are present. Weight is stable and appetite is good. 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 Thrombocytopenia (HCC) Diastolic dysfunction History of recurrent deep vein thrombosis (DVT) History of compression fracture of spine History of nonmelanoma skin cancer Mild ascending aorta dilatation (HCC) Mild aortic valve regurgitation Generalized osteoarthritis of multiple sites Benign prostatic hyperplasia with urinary frequency Chronic hyponatremia Lumbar degenerative disc disease History of subdural hematoma Personal history of fall Aortic ectasia (HCC) Atherosclerosis of match[place] band co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 angina pectoris Status post transcatheter aortic valve replacement (TAVR) using bioprosthesis Paroxysmal atrial fibrillation (HCC) Obstructive sleep apnea of adult Panic attacks Current Outpatient Medications Medication Sig Dispense Refill ALAVERT [address] one pill on tongue once daily as needed for allergies 30 Tab 5 VITAMIN B-12 500 MCG PO TABS Take 1 Tablet by mouth in the morning. fluticasone (FLONASE) 50 MCG/ACT nasal spray USE TWO SPRAYS IN EACH NOSTRIL ONCE DAILY 16 g 4 Vitamin D3 10 MCG (400 UNIT) Oral Tablet (cholecalciferol) Take 1 Tablet by mouth in the morning. Artificial Tears 0.1-0.3 % Ophthalmic Solution (Dextran 70-Hypromellose) Instill into eye at bedtime. Konsyl Original Formula 100 % Oral Powder (Psyllium) Take two teaspoons by mouth twice daily (patient home med) (Patient taking differently: Take one teaspoons by mouth twice daily (patient home med)) 660 g 5 Acetaminophen 500 MG Oral Tablet (Tylenol) Take 2 Tablets by mouth every 8 hours as needed for Pain, Mild or Pain, Moderate. Xiidra 5 % Ophthalmic Solution INSTILL ONE DROP IN EACH EYE TWO TIMES A DAY (Patient taking differently: Before breakfast and before dinner) 180 Each 4 Mupirocin Calcium 2 % External Cream (Bactroban) Apply topically to affected area 3 times a day. Opening area on face. (Patient taking differently: Apply topically to affected area 3 times a day. Opening area on face. Using 1-2 times weekly) 30 g 3 Metoprolol Tartrate 50 MG Oral Tablet (Lopressor) Take 1 Tablet by mouth in the morning and 1 Tablet before bedtime. 180 Tablet 3 Nystatin-Triamcinolone 739660-2.1 UNIT/GM-% External Cream (Mycolog) APPLY TOPICALLY NEEDED DIRECTED BY PHYSICIAN, uses in groin 30 g 2 Folic Acid 1 MG Oral Tablet Take 1 Tablet by mouth in the morning. In the morning.. 90 Tablet 3 Apixaban 5 MG Oral Tablet (Eliquis) Take 1 Tablet by mouth in the morning and 1 Tablet before bedtime. 180 Tablet 3 No current facility-administered medications for this [...] fibrillation (HCC) 01/29/2023 PSVT (paroxysmal supraventricular tachycardia) ([facility]) from Claritin-d Past Surgical History: Procedure Laterality Date COLONOSCOPY, DIAGNOSTIC (RECTUM) 09/18/2016 proximal hyperplastic polyps, diverticulosis, repeat 3 yrs/COLONOSCOPY FLEXIBLE PROXIMAL DIAGNOSTICperformed by Stanley Kirk MD at [facility] COLONOSCOPY, DIAGNOSTIC (RECTUM) 06/24/2020 normal, repeat 5 yrs / [facility] CORONARY ANGIOGRAPHY W/LEFT HEART CATH Right 03/20/2022 CORONARY ANGIOGRAPHY W/LEFT HEART CATH performed by Javier De Paz MD at [facility] EGD, FLEXIBLE, DIAGNOSTIC 06/24/2020 hyperplastic gastric polyps, gastritis, duodenitis, esophagitis, repeat 4-6 mo / [facility] EYELID LINING SURGERY NEC 2014 eyelid plugs LAPAROSCOPY,EXPLOR COMMON DUCT 06/28/2016 06/28/2016 laparoscopioc cholecystectomy wth intraoperative cholangiogram [facility] , Thomas Carroll OPEN SKULL FOR REMOVAL OF HEMATOMA Left 04/20/2022 CRANIOTOMY EVACUATION OF SUBDURAL OR EXTRADURAL HEMATOMA SUPRATENTORIAL performed by Prudencio Sung III, MD at OR [facility] PROCEDURE - GENERAL Right 07/03/2021 Right inguinal hernia repair by Dr Bean Caro REMOVE CATARACT, INSERT LENS PROSTH Bilateral REPAIR WRIST BONE FX, EACH BONE Left 2008 REPLACE AORTIC VALVE, PERCUTANEOUS FEMORAL Bilateral 09/04/2022 REPLACE AORTIC VALVE, PERCUTANEOUS FEMORAL performed by Alexis Crenshaw MD at [facility] REPLACE AORTIC VALVE, PERCUTANEOUS FEMORAL Bilateral 09/04/2022 REPLACE AORTIC VALVE, PERCUTANEOUS FEMORAL performed by Chris Mayen MD at [facility] REVERSE TOTAL SHOULDER ARTHROPLASTY Left 03/11/2023 SHOULDER ARTHROSCOPY SURGERY Bilateral acriomoplasty Review of patient's allergies indicates: Allergen Reactions Lovenox [Enoxaparin] Other (Please comment) Affected platelet count Advil [Ibuprofen] Aspirin Other reaction(s): CANNOT TAKE DUE TO GASTRITIS Bextra [Valdecoxib] General ill feeling Celebrex [Celecoxib] Other (Please comment) 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 Negative for appetite change, chills, fever and unexpected weight change. Respiratory: Negative for cough, shortness of breath and wheezing. Cardiovascular: Negative for chest pain, palpitations and leg swelling. Gastrointestinal: Positive for constipation. Negative for abdominal pain, blood in stool, diarrhea,nausea and vomiting. Genitourinary: Negative for dysuria, frequency and hematuria. Musculoskeletal: Positive for gait problem (ambulates with a cane). Negative for back pain. Neurological: Negative for dizziness, syncope and headaches. Psychiatric/Behavioral: Negative for confusion, decreased concentration and sleep disturbance. OBJECTIVE: BP 124/64 (BP Site: Left Arm, BP Position: Sitting, BP Cuff Size: Regular) | Pulse 53 | Temp 36.6 C (97.8 F) | Resp 18 | Wt 77.9 kg (171 lb 11.2 oz) | SpO2 98% | BMI 24.64 kg/m | BSA 1.96 m Physical Exam Vitals and nursing note [...] and time. Mental status is at baseline. Gait: Gait abnormal. Psychiatric: Mood and Affect: Mood normal. Behavior: Behavior normal. Thought Content: Thought content normal. Results for orders placed or performed in visit on 11/28/23 CBC Result Value Ref Range WBC 5.02 4.00 - 10.80 K/uL RBC 3.58 4.50 - 5.25 M/uL HGB 12.5 (L) 14.0 - 16.8 g/dL HCT 37.3 (L) 40.0 - 48.4 % MCV 104.2 82.0 - 99.5 fL MCH 34.9 27.0 - 34.0 pg MCHC 33.5 32.0 - 36.0 g/dL RDW 10.7 11.5 - 15.5 % PLT 86 (L) 140 - 400 K/uL MPV 9.3 6.6 - 11.1 fL BASIC METABOLIC PANEL Result Value Ref Range BUN 30 (H) 6 - 20 mg/dL Creatinine 1.0 0.6 - 1.2 mg/dL Estimated Glomerular Filtration Rate 77 >=60 mL/min Sodium 129 (L) 135 - 146 mmol/L Potassium 5.2 (H) 3.5 - 5.1 mmol/L Chloride 91 (L) 98 - 107 mmol/L CO2 30 22 - 32 mmol/L Anion Gap 8 7 - 15 mmol/L Glucose 99 70 - 120 mg/dL Calcium 9.5 8.4 - 10.2 mg/dL BNP, NT-PRO Result Value Ref Range BNP, NT-Pro 435 (H) <300 pg/mL TSH WITH FREE T4 IF INDICATED Result Value Ref Range TSH 1.58 0.27 - 4.20 uIU/mL PLAN AND ASSESSMENT: Paroxysmal atrial fibrillation (HCC) (Primary) Continue Apixaban, and Metoprolol Thrombocytopenia (HCC) Stable Chronic hyponatremia Repeat BMP in 6 days History of recurrent deep vein thrombosis (DVT) Continue Apixaban Status post transcatheter aortic valve replacement (TAVR) using bioprosthesis Obstructive sleep apnea of adult History of compression fracture of spine Benign prostatic hyperplasia with urinary frequency Atherosclerosis of [place] coronary artery of match[place] heart without angina pectoris Continue Metoprolol Risk and functional assessment Follow Up: Return in about 4 months (around 04/02/2024), or if symptoms worsen or fail to improve. Jose Angel Weeks DO 2:53 PM 12/02/2023 * Aaliyah Patterson RN - 12/02/2023 2:27 PM EDT Fall Risk Plan of Care Documentation: - Current medications reconciled Patient encouraged to: - Exercise - Provide education materials for Core strengthening - Utilize assistive/adaptive devices - Provide education materials - Avoid multifocal lenses when walking - Avoid hazards in home - Provide education materials - Maintain a regular toileting schedule Aaliyah Patterson RN 12/02/2023 Urinary Incontinence Plan of Care Documentation: (This education is for all patients over 65 regardless of symptoms) Current medications reconciled. Patient encouraged to: Practice kegal exercises Provide education materials Use the restroom every 2 hours throughout the day Limit caffeine, alcohol, spicy foods and acidic foods Keep a bladder diary Limit fluid intake 3-4 hours before bed Lose weight Prevent constipation Take fluid pills at a time when you can get to the bathroom quickly Control sugar better if diabetic Limit fluid intake to 60 oz. per day Wear support stockings (TEDs)if you have edema Aaliyah Patterson RN 12/02/2023 documented in this encounter Nursing Notes * Aaliyah Patterson RN - 12/02/2023 2:21 PM EDT 3 MONTH RETURN Fatigued since brain surgery in March. Saw industrial engineering intern-pt was concerned in heart failure-had tests-high potassium and low sodium but didn't feel any heart failure. Has repeat labs next Saturday. Ptstates can't walk as far as he used to be able to. Next urology appt in July-august do in office procedure to help with urinary frequency at night. Using desyten on open area on buttock-helping documented in this encounter Plan of Treatment Upcoming Encounters Date Type Department Care Team (Late st Contact Info) Description 12/09/2023 2:15 PM EDT Office Visit Dermatology [facility] [address] [place] [address] Jacky Arroyo MD [address] [facility] [place] [address] 04/06/2024 2:00 PM EST Office Visit Family Practice [address] [place] [address] [address] [facility], [place] [address] Jose Angel Weeks, [address] [facility], [place] [address] 04/07/2024 10:00 AM EST Laboratory Laboratory [facility] [place] [address] [place] [address] [facility] [address] [facility] [place] [address] 04/14/2024 2:15 PM EST Office Visit Hematology/Oncology [facility] [address] [facility] [place], [place] [address] Edmar Meeks MD [address] [facility] [place] [address] 07/30/2024 1:30 PM EDT Office Visit Neurology [facility] [address] [facility] [place] [address] Nataliya Vieyra PA-C [address] [place] [address] 10/28/2024 2:30 PM EDT Cardiac Studies Cardiac Studies, [facility] [address] [facility] [place] [address] Scheduled Procedures Name Priority Associated Diagnoses Date/Ti me ESOPHAGOGASTRODUODENOSCOPY ( EGD), FLEXIBLE, TRANSORAL, DIAGNOSTIC Recall Gastric polyps COLONOSCOPY FLEXIBLE PROXIMAL DIAGNOSTIC Recall History of colonic polyps Health Maintenance Due Date Last Done Comments Influenza Vaccine (FLU shot) (#1) 2023 01/29/2023, 02/07/2022, 01/17/2021, Additional history exists COVID-19 Vaccine (2022- season) 2024 02/12/2023, 10/11/2022, 01/30/2022, Additional history [...] this encounter Medical Devices Implanted Type Area Form Drafter Device Identifier Shelf Expiration Date Model / Serial / Lot Graft Lyoplant 10.0x12.5cm 4x5 - [id number] - [id number] Implanted:Qty : 1 on 04/20/2022 by Prudencio Sung III, MD at OR [facility] Left: Head B JEFFERY : AES[employer]AP [id number] 09/26/2026 [id number] / [id number] / [id number] Mesh Ti Lo Mal Sm Arc 421.536 - [id number] Implanted:Qty : 1 on 04/20/2022 by Prudencio Sung III, MD at OR [facility] Left: Head SYNTHES MAXILLOFACIAL 421.536 / / Screw Ti Lo Pro Sd 4mm 400.834 - [id number] Implanted:Qty : 13 on 04/20/2022 by Prudencio Sung III, MD at OR [facility] Left: Head SYNTHES MAXILLOFACIAL 400.834 / / Cover Bur Hol Ti Lo 17 421.527 - [id number] Implanted:Qty : 4 on 04/20/2022 by Prudencio Sung III, MD at OR [facility] Left: Head SYNTHES MAXILLOFACIAL 421.527 / / Cover Adilene Hole 17mm 421.554 - [id number] Implanted:Qty : 1 on 04/20/2022 by Prudencio Sung III, MD at OR [facility] Left: Head SYNTHES MAXILLOFACIAL 421.554 / / Valve Tavr Jayson 29mm - [id number] Implanted:Qty : 1 on 09/05/2022 by Alexis Crenshaw MD at [facility] [employer] SHAHBAZ [id number] 03/08/2023 [id number] / / documented as of this encounter Visit Diagnoses Diagnosis Paroxysmal atrial fibrillation (HCC)- Primary Atrial fibrillation Thrombocytopenia (HCC) Thrombocytopenia, unspecified Chronic hyponatremia Hyposmolality and/or hyponatremia 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 Obstructive sleep apnea of adult Obstructive sleep apnea (adult) (pediatric) History of compression fracture of spine Personal history of traumatic fracture Benign prostatic hyperplasia with urinary frequency Atherosclerosis of [place] coronary artery of [place] heart without angina pectoris Risk and functional assessment Screening for unspecified condition documented in this encounter Advance Directives Documents on File Type Date Recorded Patient Manager Scheduling Expl anation Advance Directives and Living Will [...] Relationship Healthcare Agent Relationshi p Communication Sujata Kristen Spouse First Alternate Health Care Agent (per Health Care Power of Plater Hot Dip document) Care Teams Concrete Craftsman Relationship Specialty Start Date End Date Jose Angel Weeks DO [address] [place] [address] PCP - General Internal Medicine 11/25/23 documented as of this encounter"
--- OUTSIDE RECORDS SUMMARY | 2023-12-11 03:08 | External Medical Summary | Summary of Care ---
Author Name Unknown Organization [facility] Address [address] [place] [address] Phone [phone] Care Team Providers Care Rail Car Driver Name Role Phone EmilianoherminiaJose Angel DO Primary Care Provider [phone] Reason for Visit * Reason Comments Outpatient Testing Encounter Details Date Type Department Care Team (Late st Contact Info) Description 12/09/2023 2:50 PM EDT Laboratory Laboratory [facility] [address] [place] [phone] [facility] Lab [facility] [address] [place] [address] Hyponatremia Allergies Active Allergy Reactions Criticality Noted Date Comments Ibuprofen 12/12/2013 Aspirin 07/03/2021 Other reaction(s): CANNOT TAKE DUE TO GASTRITIS Valdecoxib 03/03/2013 General ill feeling Celecoxib Other (Please comment) 08/27/2017 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 Codeine 12/12/2022 Other Reaction(s): [...] 180 Tablet 3 05/20/2023 Active Nystatin-Triamcinol one 245867-7.1 UNIT/GM-% External Cream (Mycolog)Indication s:Chronic dermatitis APPLY [...] bioprosthesis 09/04/2022 Aortic ectasia 05/18/2022 Atherosclerosis of [place] co 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 angina pectoris 05/18/2022 [...] restoration History of compression fracture of spine 018 [...] mRNA, LNP-s, No Pre serve, 2-Dose Series (Orthera) 08/02/2021,02/13/2021,07/28/2020,06/27 COVID-19, MRNA-LNP, 23-24, P F, 30 MCG/0.3 mL, 12 YRS AND ABOVE, IM ([place]-Comirnaty) 02/12/2023 Covid-19, Mrna, Lnp-s, Pf, B ivalent, [...] PM EST Office Visit Family Practice [address] [place] [address] [address] [place], [place] [address] Jose [facility]eks [facility] [address] [facility] [address] 04/07/2024 10:00 AM EST Laboratory Laboratory [facility] [address] [place] [phone] [facility] [place] [address] 04/14/2024 2:15 PM EST Office Visit Hematology/Oncology [facility] [address] [place] [phone] Edmar Meeks MD [address] [facility] [place] [address] 07/30/2024 1:30 PM EDT Office Visit Neurology [facility] [address] [place] [address] Nataliya Vieyra PA-C [facility] [place] [address] 10/28/2024 2:30 PM EDT Cardiac Studies Cardiac Studies, [facility] [address] [facility] [place] [address] 12/11/2024 2:00 PM EDT Office Visit Dermatology [facility] [address] [place] [address] Jacky Arroyo MD [address] [place] [address] Pending Results Name Type Priority Associated Diagnoses Date /Time BASIC METABOLIC PANEL Lab Routine Hyponatremia 12/09/2023 2:55 PM EDT Scheduled Procedures Name Priority Associated Diagnoses [...] this encounter Medical Devices Implanted Type Area Manager File Device Identifier Shelf Expiration Date Model / Serial / Lot Graft Lyoplant 10.0x12.5cm 4x5 - [id number] - [id number] Implanted:Qty : 1 on 04/20/2022 by Prudencio Sung III, MD at [place] [facility] Left: Head B JEFFERY : AESCULAP [id number] 09/26/2026 [id number] / [id number] / [id number] Mesh Ti Lo Mal Sm Arc 421.536 - [id number] Implanted:Qty : 1 on 04/20/2022 by Prudencio Sung III, MD at [place] [facility] Left: Head SYNTHES MAXILLOFACIAL 421.536 / / Screw Ti Lo Pro Sd 4mm 400.834 - [id number] Implanted:Qty : 13 on 04/20/2022 by Prudencio Sung III, MD at [place] [facility] Left: Head SYNTHES MAXILLOFACIAL 400.834 / / Cover Bur Hol Ti Lo 17 421.527 - [id number] Implanted:Qty : 4 on 04/20/2022 by Prudencio Sung III, MD at [place] [facility] Left: Head SYNTHES MAXILLOFACIAL 421.527 / / Cover Adilene Hole 17mm 421.554 - [id number] Implanted:Qty : 1 on 04/20/2022 by Prudencio Sung III, MD at [place] [facility] Left: Head SYNTHES MAXILLOFACIAL 421.554 / / Valve Tavr Jayson 29mm - [id number] Implanted:Qty : 1 on 09/05/2022 by Alexis Crenshaw MD at [facility] [employer]AH[employer]Z [id number] 03/08/2023 [id number] / / documented as of this encounter Visit Diagnoses Diagnosis Hyponatremia Hyposmolality and/or hyponatremia documented in this encounter Advance Directives Documents on File Type Date Recorded Patient Financial Reserve Clerk Expl anation Advance Directives and Living [...] Care Agent (per Health Care Power of Real Estate Salesperson document) Care Teams Rail Car Driver Relationship Specialty Start Date End Date Jose Angel Weeks DO [address] [place] [address] PCP - General Internal Medicine 11/25/23 documented as of this encounter
--- OUTSIDE RECORDS SUMMARY | 2023-12-11 03:09 | External Medical Summary | Summary of Care ---
Author Name Unknown Organization [facility] Address [address] [facility] [place] [address] Phone [phone] Care Team Providers Care Tail Worker Name Role Phone Jose Angel Weeks DO Primary Care Provider [phone] Reason for Visit * Reason Onset Date Comments Test Results 11/29/2023 Encounter Details Date Type Department Care Team (Late st Contact Info) Description 11/29/2023 Telephone Cardiology, [facility] [address] [place] [address] Ashok Roger DO [address] [place] [address] Test Results Allergies Active Allergy Reactions Criticality Noted Date Comments Ibuprofen 12/12/2013 Aspirin 07/03/2021 Other reaction(s): CANNOT TAKE DUE TO GASTRITIS Valdecoxib 03/03/2013 General ill feeling Celecoxib Other (Please comment) 08/27/2017 emt intermediate use caused heart-burn Codeine 12/12/2022 Other Reaction(s): [...] as of this encounter (statuses as of 11/29/2023) Medications Medication Sig Dispensed Refills Start Date [...] 60 Tablet 5 06/24/2023 Active Nystatin-Triamcinol one 200733-0.1 UNIT/GM-% External Cream (Mycolog)Indication s:Chronic dermatitis APPLY TOPICALLY NEEDED DIRECTED BY PHYSICIAN, uses in groin 30 g 2 11/04/2023 Active documented as of this encounter (statuses as of 11/29/2023) Active Problems Problem Noted Date Diagnosed Date Panic attacks 06/04/2023 Paroxysmal atrial fibrillation 01/29/2023 Obstructive sleep apnea of adult 01/29/2023 Status post transcatheter ao rtic valve replacement (TAVR) using bioprosthesis 09/04/2022 Aortic ectasia 05/18/2022 Atherosclerosis of [place] co 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 angina pectoris [...] 09/12 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 History of compression fracture of spine 018 Overview: winter, T10, L5 - traumatic 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3 mL, 12 YRS AND ABOVE, IM (PFIZER-Comirnaty) 02/12/2023 Covid-19, Mrna, Lnp-s, Pf, B ivalent, [...] 06/04/2023 Does the household have a re lar source of income? (Household - for ages [...] encounter Miscellaneous Notes * Telephone Encounter - Ashok Roger DO - 11/29/2023 5:07 PM EDT Attempted to reach patient by phone to go over his lab results, I was unable to connect with him soI sent him a portal message with the details. documented in this encounter Plan of Treatment Upcoming Encounters Date Type Department Care Team (Late st Contact Info) Description 12/02/2023 2:00 PM EDT Office Visit [facility] [address] [facility] [place] [address] [facility] [place] [address] Jose Angel Weeks DO 293 [facility] [place] [address] 12/09/2023 2:15 PM EDT Office Visit Dermatology [facility] 200 [place] [address] Jacky Arroyo MD [address] [place] [address] 04/07/2024 10:00 AM EST Laboratory Laboratory [facility] [address] [facility] [place] [phone] [place] [address] 04/14/2024 2:15 PM EST Office Visit Hematology/Oncology [facility] [address] [facility] [place] [phone] Edmar Meeks MD 200 [facility] [place] [address] 07/30/2024 1:30 PM EDT Office Visit Neurology [facility] [address] [facility] [place] [address] Nataliya Vieyra PA-C [address] [place] [address] 10/28/2024 2:30 PM EDT Cardiac Studies Cardiac Studies, [facility] [address] [facility] [place] [address] Scheduled Orders Name Type Priority Associated Diagnoses Orde r Schedule BASIC METABOLIC PANEL Lab Routine Hyponatremia Expected: 12/09/2023, Expires: 11/28/2024 Scheduled Procedures Name Priority Associated Diagnoses Date/Ti [...] encounter Medical Devices Implanted Type Area Manager Of Regulatory Affairs Device Identifier Shelf Expiration Date Model / Serial / Lot Graft Lyoplant 10.0x12.5cm 4x5 - [id number] - [id number] Implanted:Qty : 1 on 04/20/2022 by Prudencio Sung III, MD at [facility] Left: Head B JEFFERY : JAVIER [id number] 09/26/2026 [id number] / [id number] / [id number] Mesh Ti Lo Mal Sm Arc 421.536 - [id number] Implanted:Qty : 1 on 04/20/2022 by Prudencio Sung III[place] [facility] [place]: Head SYNTHES MAXILLOFACIAL 421.536 / / Screw Ti Lo Pro Sd 4mm 400.834 - [id number] Implanted:Qty : 13 on 04/20/2022 by Prudencio Sung III, [place] [facility] [place]: Head SYNTHES MAXILLOFACIAL 400.834 / / Cover Bur Hol Ti Lo 17 421.527 - [id number] Implanted:Qty : 4 on 04/20/2022 by Prudencio Sung III, [place] [facility] Left: Head SYNTHES MAXILLOFACIAL 421.527 / / Cover Winston Hole 17mm 421.554 - [id number] Implanted:Qty : 1 on 04/20/2022 by Prudencio Sung III, [place] [facility] [place]: Head SYNTHES MAXILLOFACIAL 421.554 / / Valve Tavr Jayson 29mm - [id number] Implanted:Qty : 1 on 09/05/2022 by Alexis Crenshaw MD [place] [facility] [employer] [id number] 03/08/2023 [id number] / / documented as of this encounter Visit Diagnoses Diagnosis Hyponatremia- Primary Hyposmolality and/or hyponatremia documented in this encounter Advance Directives Documents on File Type Date Recorded Patient Agile Business Analyst Expl anation Advance Directives and Living Will [...] Care Agent (per Health Care Power of Vertical Contour Band Saw Operator document) Care Teams Tail Worker Relationship Specialty Start Date End Date Jose Angel Weeks DO [address] [place] [address] PCP - General Internal Medicine 11/25/23 documented as of this encounter
--- OUTSIDE RECORDS SUMMARY | 2023-12-11 03:09 | External Medical Summary | Summary of Care ---
Author Name Unknown Organization [facility] Address [address] [place] [address] Phone [phone] Care Team Providers Care In Home Sales Representative Name Role Phone EmilianoherminiaJose Angel DO Primary Care Provider Reason for Visit * Reason Comments Outpatient Testing Encounter Details Date Type Department Care Team (Late st Contact Info) Description 11/28/2023 3:10 PM EDT Laboratory [facility] [place] [phone] DhillonThomas pradhan [facility] [address] [facility] [place] [address] History of transcatheter aortic valve replacement (TAVR); Fatigue, unspecified type Allergies Active Allergy Reactions Criticality Noted Date Comments Ibuprofen 12/12/2013 Aspirin 07/03/2021 Other reaction(s): CANNOT TAKE DUE TO GASTRITIS Valdecoxib 03/03/2013 General ill feeling Celecoxib Other (Please comment) 08/27/2017 terminal carman use caused heart-burn Codeine 12/12/2022 Other Reaction(s): [...] as of this encounter (statuses as of 11/28/2023) Medications Medication Sig Dispensed Refills Start Date [...] 60 Tablet 5 06/24/2023 Active Nystatin-Triamcinol one 719081-5.1 UNIT/GM-% External Cream (Mycolog)Indication s:Chronic dermatitis APPLY TOPICALLY NEEDED DIRECTED BY PHYSICIAN, uses in groin 30 g 2 11/04/2023 Active documented as of this encounter (statuses as of 11/28/2023) Active Problems Problem Noted Date Diagnosed Date Panic attacks 06/04/2023 Paroxysmal atrial fibrillation 01/29/2023 Obstructive sleep apnea of adult 01/29/2023 Status post transcatheter ao rtic valve replacement (TAVR) using bioprosthesis 09/04/2022 Aortic ectasia 05/18/2022 Atherosclerosis of [place] co 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 angina pectoris [...] leg, recurrent Diastolic dysfunction 07/06/2016 Thrombocytopenia 06/05/2013 terminal carman current use of anticoagulant therapy 0 10/21/2012 Overview: ICD-10 update of inactive term Insomnia Chronic rhinitis documented as of this encounter (statuses as of 11/28/2023) Resolved Problems Problem Noted Date Diagnosed Date [...] as of this encounter (statuses as of 11/28/2023) Immunizations Name Administration Dates Next Due COVID-19 mRNA, LNP-s, No Pre serve, 2-Dose Series (RealtyAPX) 08/02/2021,02/13/2021,07/28/2020,06/27 COVID-19, MRNA-LNP, 23-24, P F, 30 MCG/0.3 mL, 12 YRS AND ABOVE, IM (Suja Juice-Comirnat) 02/12/2023 Covid-19, Mrna, Lnp-s, Pf, B ivalent, [...] EDT Office Visit Family Practice [address] [place] [address] [facility], [place] [phone] Jose Angel Weeks, 293 [facility], [place] [address] 12/09/2023 2:15 PM EDT Office Visit Dermatology [facility] 200 [facility] [place] [address] Jacky Arroyo MD [address] [facility] [place] [address] 04/07/2024 10:00 AM EST Laboratory Laboratory [facility] [address] [facility] [place] [phone] [place] [address] 04/14/2024 2:15 PM EST Office Visit Hematology/Oncology [facility] 200 [facility] [place] [phone] Edmar Meeks MD 200 [facility] [place] [address] 07/30/2024 1:30 PM EDT Office Visit Neurology [facility] [address] [facility] [place] [address] Nataliya Vieyra PA-C [address] [place] [address] 10/28/2024 2:30 PM EDT Cardiac Studies Cardiac Studies, [facility] 132 [facility] [place] [address] Pending Results Name Type Priority Associated Diagnoses Date /Time CBC Lab Routine History of transcatheter aortic valve replacement (TAVR) 11/28/2023 3:05 PM EDT BASIC METABOLIC PANEL Lab Routine History of transcatheter aortic valve replacement (TAVR) 11/28/2023 3:05 PM EDT BNP, NT-PRO Lab Routine Fatigue, unspecified type History of transcatheter aortic valve replacement (TAVR) 11/28/2023 3:05 PM EDT TSH WITH FREE T4 IF INDICATED Lab Routine Fatigue, unspecified type 11/28/2023 3:05 PM EDT Scheduled Procedures Name Priority Associated [...] this encounter Medical Devices Implanted Type Area Typesetting Machine Operator/Tender Device Identifier Shelf Expiration Date Model / Serial / Lot Graft Lyoplant 10.0x12.5cm 4x5 - [id number] - [id number] Implanted:Qty : 1 on 04/20/2022 by Prudencio Sung III, MD at [facility] Left: Head B JEFFERY : JAVIER [id number] 09/26/2026 [id number] / [id number] / [id number] Mesh Ti Lo Mal Sm Arc 421.536 - [id number] Implanted:Qty : 1 on 04/20/2022 by Prudencio Sung III, MD at [place] [facility] Left: Head SYNTHES MAXILLOFACIAL 421.536 / / Screw Ti Lo Pro Sd 4mm 400.834 - [id number] Implanted:Qty : 13 on 04/20/2022 by Prudencio Sung III, MD at [place] [facility] Left: Head SYNTHES MAXILLOFACIAL 400.834 / / Cover Bur Hol Ti Lo 17 421.527 - [id number] Implanted:Qty : 4 on 04/20/2022 by Prudencio Sung III, MD at [place] [facility] Left: Head SYNTHES MAXILLOFACIAL 421.527 / / Cover Fred Hole 17mm 421.554 - [id number] Implanted:Qty : 1 on 04/20/2022 by Prudencio Sung III, MD at [place] [facility] Left: Head SYNTHES MAXILLOFACIAL 421.554 / / Valve Tavr Jayson 29mm - [id number] Implanted:Qty : 1 on 09/05/2022 by Alexis Crenshaw MD at [facility] [employer]EL [employer] SHAHBAZ [id number] 03/08/2023 [id number] / / documented as of this encounter Visit Diagnoses Diagnosis History of transcatheter aortic valve replacement (TAVR) Fatigue, unspecified type documented in this encounter Advance Directives Documents on File Type Date Recorded Patient Milling Supervisor Expl anation Advance Directives and Living Will [...] Care Agent (per Health Care Power of Commercial Collector document) Care Teams In Home Sales Representative Relationship Specialty Start Date End Date Jose Angel Weeks DO [address] [facility] [place] [address] PCP - General Internal Medicine 11/25/23 documented as of this encounter
--- OUTSIDE RECORDS SUMMARY | 2023-12-11 03:09 | External Medical Summary ---
Author Name Unknown Address Unknown Organization [facility] [address] [place] [address] Laboratory Report Ordering Provider Test Date Status SANJEEV BENAVIDES 11/28/2023 15:05:46 Final Observation Date Value Abnormality Reference (Units ) Status BUN 11/28/2023 15:05:46 30 Above high normal 6-20 (mg/dL) Final Creatinine 11/28/2023 15:05:46 1.0 0.6-1.2 (mg/dL) Final Glomerular filtration rate/1.73 sq M.predicted [Volume Rate/Area] in Serum, Plasma or Blood by Creatinine-based formula (CKD-EPI) 11/28/2023 15:05:46 77 >=60 (mL/min) Final eGFR is calculated based on the CKD-EPI 2020 equation. Sodium 11/28/2023 15:05:46 129 Below low normal 135 -146 (mmol/L) Final Potassium 11/28/2023 15:05:46 5.2 Above high normal 3. 5-5.1 (mmol/L) Final Cl 11/28/2023 15:05:46 91 Below low normal 98- 107 (mmol/L) Final CO2 11/28/2023 15:05:46 30 22-32 (mmo l/L) Final Anion gap 11/28/2023 15:05:46 8 7-15 (mmol /L) Final Glucose 11/28/2023 15:05:46 99 70-120 (mg /dL) Final Calcium 11/28/2023 15:05:46 9.5 8.4-10.2 ( mg/dL) Final Performing Location [facility] [address] [place] [address]
--- OUTSIDE RECORDS SUMMARY | 2023-12-11 03:09 | External Medical Summary | Summary of Care ---
Author Name Unknown Organization [facility] Address [address] [place] [address] Phone [phone] Care Team Providers Care Motion Study Analyst Name Role Phone MickyJose Angel DO Primary Care Provider [phone] Encounter Details Date Type Department Care Team (Late st Contact Info) Description 11/06/2023 Result Scan Unspecified Department <No scans attached> Allergies Active Allergy Reactions Criticality Noted Date [...] as of this encounter (statuses as of 11/07/2023) Medications Medication Sig Dispensed Refills Start Date [...] 60 Tablet 5 06/24/2023 Active Nystatin-Triamcinol one 397015-1.1 UNIT/GM-% External Cream (Mycolog)Indication s:Chronic dermatitis APPLY TOPICALLY NEEDED DIRECTED BY PHYSICIAN, uses in groin 30 g 2 11/04/2023 Active documented as of this encounter (statuses as of 11/07/2023) Active Problems Problem Noted Date Diagnosed Date Panic attacks 06/04/2023 Paroxysmal atrial fibrillation 01/29/2023 Obstructive sleep apnea of adult 01/29/2023 Status post transcatheter ao rtic valve replacement (TAVR) using bioprosthesis 09/04/2022 Aortic ectasia 05/18/2022 Atherosclerosis of [place] 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 angina pectoris 05/18/2022 [...] 09/12 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 History of compression fracture of spine 018 Overview: Winter , T10, L5 - traumatic 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 leg, recurrent Diastolic dysfunction 07/06/2016 Thrombocytopenia 06/05/2013 FDC current use of anticoagulant therapy 0 10/21/2012 Overview: ICD-10 update of inactive term Insomnia Chronic rhinitis documented as of this encounter (statuses as of 11/07/2023) Resolved Problems Problem Noted Date Diagnosed Date [...] as of this encounter (statuses as of 11/07/2023) Immunizations Name Administration Dates Next Due COVID-19 mRNA, LNP-s, No Pre serve, 2-Dose Series ([employer]) 08/02/2021,02/13/2021,07/28/2020,06/27 COVID-19, MRNA-LNP, 23-24, P F, 30 MCG/0.3 mL, 12 YRS AND ABOVE, IM ([facility] [facility]) 02/12/2023 Covid-19, Mrna, Lnp-s, Pf, B ivalent, 30 Mcg, IM, 12 yrs and above ([employer]) 10/11/2022,01/30/2022 Pneumococcal Conjugate Vacc, 13 Valent (Prevnar) [...] Team (Late st Contact Info) Description 11/28/2023 2:30 PM EDT Office Visit Cardiology, [facility] [address] [place] [address] Ashok Roger, [address] [place] [address] 12/02/2023 2:00 PM EDT Office Visit Family Practice [address] [place] [address] [place], [place] [address] Jose Angel Weeks, [address] [facility], [place] [address] 12/09/2023 2:15 PM EDT Office Visit Dermatology [facility] [address] [facility] [place] [address] Jacky Arroyo MD [address] [facility] [place] [address] 04/07/2024 10:00 AM EST Laboratory Laboratory [facility] [address] [facility] [place] [phone] [place] [address] 04/14/2024 2:15 PM EST Office Visit Hematology/Oncology [facility] [address] [facility] [place], [place] [phone] Edmar Meeks MD [address] [facility] [place] [address] 07/30/2024 1:30 PM EDT Office Visit Neurology [facility] [address] [facility] [place] [address] Nataliya Vieyra PA-C [address] [place] [address] Scheduled Procedures Name Priority Associated Diagnoses Date/Ti [...] this encounter Medical Devices Implanted Type Area Food Service Specialist Device Identifier Shelf Expiration Date Model / Serial / Lot Graft Lyoplant 10.0x12.5cm 4x5 - [id number] - [id number] Implanted:Qty : 1 on 04/20/2022 by Prudencio Sung III, MD at OR [facility] Left: Head B JEFFERY : AESCULAP [id number] 09/26/2026 [id number] / [id number] / [id number] Mesh Ti Lo Mal Sm Arc 421.536 - [id number] Implanted:Qty : 1 on 04/20/2022 by Prudencio Sung III, MD at OR [facility] Left: Head SYNTHES MAXILLOFACIAL 421.536 / / Screw Ti Lo Pro Sd 4mm 400.834 - [id number] Implanted:Qty : 13 on 04/20/2022 by Prudencio Sung III, MD at OR [facility] Left: Head SYNTHES MAXILLOFACIAL 400.834 / / Cover Bur Hol Ti Lo 17 421.527 - [id number] Implanted:Qty : 4 on 04/20/2022 by Prudencio Sung III, MD at OR [facility] Left: Head SYNTHES MAXILLOFACIAL 421.527 / / Cover Malone Hole 17mm 421.554 - [id number] Implanted:Qty : 1 on 04/20/2022 by Prudencio Sung III, MD at OR [facility] Left: Head SYNTHES MAXILLOFACIAL 421.554 / / Valve Tavr Jayson 29mm - [id number] Implanted:Qty : 1 on 09/05/2022 by Alexis Crenshaw MD at CARDIAC LABS [facility] [employer] [id number] 03/08/2023 [id number] / / documented as of this encounter Procedures Procedure Name Priority Date/Time Associated Diagnosis Comments PROCEDURE SCANNED RESULT 11/06/2023 documented in this encounter Results * PROCEDURE SCANNED RESULT (11/06/2023) 11/06/2023 No Physician Data Unknown SURGERY documented in this encounter Advance Directives Documents on File Type Date Recorded Patient Filter Bed Placer Expl anation Advance Directives and Living Will [...] Care Agent (per Health Care Power of Gang Drill Operator document) Care Teams Motion Study Analyst Relationship Specialty Start Date End Date Jose Angel Weeks DO PCP - General Internal Medicine 07/25/21 documented as of this encounter
--- OUTSIDE RECORDS SUMMARY | 2023-12-11 03:09 | External Medical Summary ---
Author Name Unknown Address Unknown Organization [id number]:LABORATORY [facility] - [address] [facility] [address] Laboratory Report Ordering Provider Test Date Status SANJEEV BENAVIDES 11/28/2023 15:05:46 Final Observation Date Value Abnormality Reference (Units ) Status TSH 11/28/2023 15:05:46 1.58 0.27-4.20 (uIU/mL) Final Performing Location LABORATORY C - [address] [facility] [address]
--- OUTSIDE RECORDS SUMMARY | 2023-12-11 03:09 | External Medical Summary | Summary of Care ---
Author Name Unknown Organization [facility] Address [address] [place] [address] Phone [phone] Care Team Providers Care Process Lead Name Role Phone Jose Angel Weeks DO Primary Care Provider [phone] Reason for Referral * Precert (Within 10 days (routine)) - Authorized Specialty Diagnoses / Procedures Referred By Contac t Referred To Contact Cardiac Studies Diagnoses History of transcatheter aortic valve replacement (TAVR) Procedures ECHO, COMPLETE (2D), TRANS-THORACIC Ashok Roger DO [address] [place] [address] Referral ID Status Reason Start Date Expiration Date V isits Requested Visits Authorized [id number] Authorized Precert 10/27/2024 999 999 Reason for Visit * Reason Comments Follow Up Encounter Details Date Type Department Care Team (Latest Contact Info) Description 11/28/2023 2:30 PM EDT Office Visit Cardiology, [facility] [address] [place] [address] Ashok Roger DO [address] [place] [address] Fatigue, unspecified type*; History of transcatheter aortic valve replacement (TAVR); Mild ascending aorta dilatation (HCC); Paroxysmal atrial fibrillation (HCC) Allergies Active Allergy Reactions Criticality Noted Date Comments Ibuprofen 12/12/2013 Aspirin 07/03/2021 Other reaction(s): CANNOT TAKE DUE TO GASTRITIS Valdecoxib 03/03/2013 General ill feeling Celecoxib Other (Please comment) 08/27/2017 intermediate frame tender use caused heart-burn Codeine 12/12/2022 Other [...] 60 Tablet 5 06/24/2023 Active Nystatin-Triamcinol one 601243-6.1 UNIT/GM-% External Cream (Mycolog)Indication s:Chronic dermatitis APPLY [...] bioprosthesis 09/04/2022 Aortic ectasia 05/18/2022 Atherosclerosis of [place] co 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 angina pectoris 05/18/2022 [...] recurrent Diastolic dysfunction 07/06/2016 Thrombocytopenia 06/05/2013 intermediate frame tender current use of anticoagulant therapy 0 10/21/2012 Overview: ICD-10 update of inactive term Insomnia Chronic rhinitis documented as of this encounter (statuses as of 11/28/2023) Resolved Problems Problem Noted Date Diagnosed Date Resolved Date Hypertensive heart disease with heart failure 05/18/1901/29/2023 Supraventricular tachycardia 05/18/2022 01/29/2023 Closed fracture of [...] No Pre serve, 2-Dose Series (Pfizer) 08/02/2021,02/13/2021,07/28/2020,06/27 COVID-19, MRNA-LNP, 23-24, P F, 30 [...] Sign Reading Time Taken Comments Blood Pressure 126/64 11/28/2023 2:28 PM EDT Pulse 60 11/28/2023 2:28 PM EDT Temperature - - Respiratory Rate 16 11/28/2023 2:28 PM EDT Oxygen Saturation - - Inhaled Oxygen Concentration - - Weight 78 kg (171 lb 14.4 oz) 11/28/2023 2:28 PM EDT Height - - Body Mass Index 24.67 08/23/2023 2:20 PM EDT documented in this [...] this encounter Progress Notes * Ashok Roger, - 11/28/2023 2:37 PM EDT 11/28/2023 Cardiology Follow Up CHIEF COMPLAINT: Follow up, history of transcatheter aortic valve replacement, easy fatigability SUBJECTIVE: Alec Peterson is a 83 year old year old male who presents in routine cardiology follow-up,accompanied by his spouse 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 He had undergone transcatheter aortic valve replacement in 2022. Leading up to that procedure he had a mechanical fall on ice with traumatic injury of his left humerus and a traumatic subdural hematoma that required craniotomy and drainage. An echocardiogram was performed last month in advance of today's visit with stable findings as noted below. He was concerned that he has generalized easy fatigability with minimal walking. Does not describe shortness of breath as much as tiredness including tiredness in his legs. He states that he does not sleep very well. He was to get up 4 to 5 times per night in order to avoid and he states he gets probably a total of 5 to 6 hours of sleep. He does have a history of obstructive sleep apnea but it was not tolerated CPAP in the past. He elevates the head of his bed with his sleep number bed. Past Medical History: Severe aortic valve stenosis, s/p TAVR (# 29mm Angel Jayson S3), 09/04/2022 Normal coronary arteries per pre TAVR cardiac catheterization 03/20/2022 at [facility] Mild aortic root/ascending aorta dilation, 4.0/4.0 cm respectively per echo 12/2021 Asymptomatic frequent PACs Diastolic dysfunction History of significant of the right leg DVTs (2003 and 2006) Longstanding history of thrombocytopenia with a platelet count in the range of 100-110,000 since 2012 (personal history of Lovenox causing worsening platelet count) Chronic hyponatremia History of fall resulting in left proximal humerus fracture and subdural hematoma requiring a left craniotomy, onlay duraplasty and subdural and subgaleal drain placement, [place]/18/[place] [facility] Episode of paroxysmal atrial fibrillation during hospital [...] ill feeling Celebrex [Celecoxib] Other (Please comment) intermediate frame tender use caused heart-burn Codeine Other Reaction(s): GENERAL [...] 1 Tablet before bedtime. 180 Tablet 3 Folic Acid 1 MG Oral Tablet TAKE ONE TABLET BY MOUTH EVERY MORNING 30 Tablet 5 Eliquis 5 MG Oral Tablet (Apixaban) TAKE ONE TABLET BY MOUTH EVERY MORNING AND 1 TABLET BEFORE BEDTIME 60 Tablet 5 Nystatin-Triamcinolone 140554-4.1 UNIT/GM-% External Cream (Mycolog) APPLY TOPICALLY NEEDED DIRECTED BY PHYSICIAN, uses in groin 30 g 2 No current facility-administered medications for this visit. OBJECTIVE/PHYSICAL EXAMINATION: BP 126/64 | Pulse 60 | Resp 16 | Wt 78 kg (171 lb 14.4 oz) | BMI 24.67 kg/m | BSA 1.96 m General: no acute distress and stated age Eyes: conjunctiva are pink and non-injected, sclera clear Neck: normal jugular venous pulse, no hepatojugular reflux Chest: normal shape and normal respiratory effort Lungs: clear to auscultation , no rales rhonchi or wheezing Cardiac Exam: - regular heart sounds, no murmurs, rubs, or gallops Abdomen: not examined Musculoskeletal: no gait disturbance, no weakness Extremities: no edema and no cyanosis Neuro: grossly normal exam Psych: appropriate affect and insight. Data: Summary of ttecho performed 10/28/23: The qualitative LV ejection fraction is 55-59% (normal). The patient is status post TAVR with Jayson type prosthetic valve. The aortic valve prosthesis systolic gradients are normal for this type prosthesis. Ao Vmax 2.2 m/s, mean gradient=9.5 mm Hg. Mild paravalvular aortic valve prosthesis regurgitation is present. Compared to the previous study dated 11/15/2022, the prosthetic gradient is unchanged. Results for orders placed or performed in visit on 08/19/23 LIPID PANEL WITH DIRECT LDL IF TG IS HIGH Result Value Ref Range Triglycerides 57 <=174 mg/dL Cholesterol 123 <200 mg/dL HDL Cholesterol 59 >39 mg/dL Non-HDL Cholesterol 64 <=159 mg/dL LDL Cholesterol 53 <=129 mg/dL ASSESSMENT / PLAN: 83 year old year old male ICD-10-CM 1. Fatigue, unspecified type R53.83 2. History of transcatheter aortic valve replacement (TAVR) Z95.2 3. Mild ascending aorta dilatation (HCC) I77.810 4. Paroxysmal atrial fibrillation (HCC) I48.0 Proceed with a CBC, chemistry panel, proBNP screen and TSH with regards to the patient's symptoms of fatigue. He was not examined as if he was volume overloaded today in his recent echocardiogram results are reassuring. He was in sinus rhythm on physical exam today. As long as he does not have additional follow-up episodes, I think it is reasonable for him to continue his Eliquis for stroke prophylaxis. Continue metoprolol. We discussed that with him I think it would be best try to keep his medicationlist as minimum/simple as possible. He was going to have the blood work on his way out of the clinic today. He also has an upcoming follow-up visit with his primary care provider , Dr Weeks, next week and he was encouraged to keep that visit. Return in 1 year with echo in advance of visit. DISPOSITION: Follow Up: Return in about 1 year (around 11/27/2024) for Clinic Visit. | For: Clinic Visit Ashok Roger DO Cardiology, [facility] [address] [facility] [place] [address] This chart was completed in part utilizing [employer] Speech Voice Recognition Software. Grammatical errors, random word insertions, prounoun errors, and incomplete sentences are an occasional consequence of this system due to software limitations, ambient noise, and hardware issues. Any formal questions or concerns about the content, text, or information contained within the body of this dictation should be directly addressed to the provider for clarification. documented in this encounter Nursing Notes * Ginette Mai CMA - 11/28/2023 2:19 PM EDT Chief Complaint Patient presents with Follow Up Examination Room: 12\\0 Name: Alec Peterson Date of : (1940). Reason for Visit: Follow up Interim Hospitalization(s): Denies Problems/Concerns: Fatigue, believes he may have some degree of heart failure Chest Pain/SOB: Denies [facility] Discussed: Yes [facility] is a way you can talk to your provider online through e-mail. Would you like to sign up? I can activate it for you? YES Patient was instructed to not get up on the exam table until directed and assisted by their provider; patient is to remain seated in the chair/ wheelchair/ exam table for fall prevention and safety reasons. Patient is aware to have assistance to step down off exam table with personnel. Patient voiced full comprehension of instructions. documented in this encounter Plan of Treatment Upcoming Encounters Date Type Department Care Team (Late st Contact Info) Description 12/02/2023 2:00 PM EDT Office Visit Family Practice [address] [place] [address] [place] [address] Jose Angel Weeks DO [address] [place] [address] 12/09/2023 2:15 PM EDT Office Visit Dermatology [facility] [place] [address] [facility] [place] [address] Jacky Arroyo MD [address] [facility] [place] [address] 04/07/2024 10:00 AM EST Laboratory Laboratory [facility] [address] [facility] [place] [phone] [place], Lab [address] [place] [address] 04/14/2024 2:15 PM EST Office Visit Hematology/Oncology [facility] [address] [facility] [place], [place] [phone] Edmar Meeks MD [address] [facility] [place] [address] 07/30/2024 1:30 PM EDT Office Visit Neurology [facility] [address] [facility] [place], [place] [address] Nataliya Vieyra PA-C [address] [place] [address] 10/28/2024 2:30 PM EDT Cardiac Studies Cardiac Studies, [facility] [address] [facility] [place] [address] Pending Results Name Type Priority Associated Diagnoses [...] unspecified type 11/28/2023 3:05 PM EDT Scheduled Orders Name Type Priority Associated Diagnoses Orde r Schedule CBC Lab Routine History of transcatheter aortic valve replacement (TAVR) Expected: 11/28/2023, Expires: 11/27/2024 BASIC METABOLIC PANEL Lab Routine History of transcatheter aortic valve replacement (TAVR) Expected: 11/28/2023, Expires: 11/27/2024 BNP, NT-PRO Lab Routine Fatigue, unspecified type History of transcatheter aortic valve replacement (TAVR) Expected: 11/28/2023, Expires: 11/27/2024 TSH WITH FREE T4 IF INDICATED Lab Routine Fatigue, unspecified type Expected: 11/28/2023, Expires: 11/27/2024 ECHO, COMPLETE (2D), TRANS-THORACIC Echocardiology Routine History of transcatheter aortic valve replacement (TAVR) Expected: 10/27/2024 (Approximate), Expires: 05/30/2025 Scheduled Procedures Name Priority Associated Diagnoses Date/Ti me ESOPHAGOGASTRODUODENOSCOPY ( EGD), FLEXIBLE, TRANSORAL, DIAGNOSTIC Recall Gastric polyps COLONOSCOPY FLEXIBLE PROXIMAL DIAGNOSTIC Recall History of colonic polyps Health Maintenance Due Date Last Done Comments COVID-19 Vaccine (2022- season) 2023 02/12/2023, 10/11/2022, 01/30/2022, Additional history [...] this encounter Medical Devices Implanted Type Area Geriatric Nurse Assistant Device Identifier Shelf Expiration Date Model / Serial / Lot Graft Lyoplant 10.0x12.5cm 4x5 - [id number] - [id number] Implanted:Qty : 1 on 04/20/2022 by Prudencio Sung III, MD [place] [facility] Left: Head B JEFFERY : AESCULAP [id number] 09/26/2026 [id number] / [id number] / [id number] Mesh Ti Lo Mal Sm Arc 421.536 - [id number] Implanted:Qty : 1 on 04/20/2022 by Prudencio Sung III, MD at [place] [facility] Left: Head SYNTHES MAXILLOFACIAL 421.536 / / Screw Ti Lo Pro Sd 4mm 400.834 - [id number] Implanted:Qty : 13 on 04/20/2022 by Prudencio Sung III, MD at [place] [facility] Left: Head SYN[employer]ES MAXILLOFACIAL 400.834 / / Cover Bur Hol Ti Lo 17 421.527 - [id number] Implanted:Qty : 4 on 04/20/2022 by Prudencio Sung III, MD [place] [facility] Left: Head SYN[employer]ES MAXILLOFACIAL 421.527 / / Cover [place] Hole 17mm 421.554 - [id number] Implanted:Qty : 1 on 04/20/2022 by Prudencio Sung III, MD [place] [facility] Left: Head SYNTHES MAXILLOFACIAL 421.554 / / Valve Tavr Jayson 29mm - [id number] Implanted:Qty : 1 on 09/05/2022 by Alexis Crenshaw MD at [facility]ARDIAC LABS [facility] [employer] 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
--- OUTSIDE RECORDS SUMMARY | 2023-12-11 03:09 | External Medical Summary ---
Author Name Unknown Address Unknown Organization K01:[facility] [address] [facility] [address] [place] [address] Laboratory Report Ordering Provider Test Date Status SANJEEV BENAVIDES 11/28/2023 15:05:46 Final Exclude Heart Failure: <300 pg/mL
Diagnose Heart Failure:
Age <50 yr: >450 pg/mL
50-75 yr: >900 pg/mL
>75 yr: >1800 pg/mL
GFR is 30-59 mL/min: >1200 pg/mL or Age- adjusted values
GFR <30 mL/min: do not use, not reliable

Prognostic threshold: 1000 pg/mL Observation Date Value Abnormality Reference (Units ) Status BNP, Pro-hormone 11/28/2023 15:05:46 435 Above high no rmal <300 (pg/mL) Final Performing Location LABORATORY [facility] - [address] [place] [address]
--- OUTSIDE RECORDS SUMMARY | 2023-12-11 03:09 | External Medical Summary | Summary of Care ---
Author Name Unknown Organization [facility] Address [address] [place] [address] Phone [phone] Care Team Providers Care Asset Management Coordinator Name Role Phone Jose Angel Weeks DO Primary Care Provider [phone] Reason for Visit * Reason Onset Date Comments Advice 11/25/2023 Sore on coccyx a inge Encounter Details Date Type Department Care Team (Late st Contact Info) Description 11/25/2023 Telephone Family [address] [facility] [address] [place] [address] Jose Angel Weeks DO [address] [place] [address] Advice (Sore on coccyx area) Allergies Active Allergy Reactions Criticality Noted Date Comments Ibuprofen 12/12/2013 Aspirin 07/03/2021 Other reaction(s): CANNOT TAKE DUE TO GASTRITIS Valdecoxib 03/03/2013 General ill feeling Celecoxib Other (Please comment) 08/27/2017 FPC use caused heart-burn Codeine 12/12/2022 Other Reaction(s): [...] as of this encounter (statuses as of 11/25/2023) Medications Medication Sig Dispensed Refills Start Date [...] 60 Tablet 5 06/24/2023 Active Nystatin-Triamcinol one 998542-5.1 UNIT/GM-% External Cream (Mycolog)Indication s:Chronic dermatitis APPLY TOPICALLY NEEDED DIRECTED BY PHYSICIAN, uses in groin 30 g 2 11/04/2023 Active documented as of this encounter (statuses as of 11/25/2023) Active Problems Problem Noted Date Diagnosed Date Panic attacks 06/04/2023 Paroxysmal atrial fibrillation 01/29/2023 Obstructive sleep apnea of adult 01/29/2023 Status post transcatheter ao rtic valve replacement (TAVR) using bioprosthesis 09/04/2022 Aortic ectasia 05/18/2022 Atherosclerosis of [place] co 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 angina pectoris 05/18/2022 [...] 09/12 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 History of compression fracture of spine 018 Overview: winter, T10, L5 - traumatic 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 leg, recurrent Diastolic dysfunction 07/06/2016 Thrombocytopenia 06/05/2013 FPC current use of anticoagulant therapy 0 10/21/2012 Overview: ICD-10 update of inactive term Insomnia Chronic rhinitis documented as of this encounter (statuses as of 11/25/2023) Resolved Problems Problem Noted Date Diagnosed Date [...] as of this encounter (statuses as of 11/25/2023) Immunizations Name Administration Dates Next Due COVID-19 mRNA, LNP-s, No Pre serve, 2-Dose Series ([employer]) 08/02/2021,02/13/2021,07/28/2020,06/27 COVID-19, MRNA-LNP, 23-24, P F, 30 MCG/0.3 mL, 12 YRS AND ABOVE, IM ([employer]-Comirnat) 02/12/2023 Covid-19, Mrna, Lnp-s, Pf, B ivalent, [...] encounter Miscellaneous Notes * Telephone Encounter - Sheila Rehman DO - 11/25/2023 1:54 PM EDT Noted. * Telephone Encounter - Aaliyah Clemente LPN - 11/25/2023 1:[address] on nurse schedule tomorrow, will have Dr Rehman look at area. Patient is aware and will comply. * Telephone Encounter - Svetlana Avila OSA - 11/25/2023 8:48 AM EDT Has sore on backside Wants to speak to nurse and wants to know how to care for it. documented in this encounter Plan of Treatment Upcoming Encounters Date Type Department Care Team (Late st Contact Info) Description 11/28/2023 2:30 PM EDT Office Visit Cardiology, [facility] 132 [facility] [place] [address] Ashok Roger, 132 [facility] [place] [address] 12/02/2023 2:00 PM EDT Office Visit Family Practice [address] [place] [address] 293 [facility], [place] [address] Jose Angel Weeks DO 293 [facility], [place] [address] 12/09/2023 2:15 PM EDT Office Visit [facility] [address] [place] [address] Jacky Arroyo MD [address] [place] [address] 04/07/2024 10:00 AM EST Laboratory [facility] [address] [place] [address] [place], [facility] 200 [facility] [place] [address] 04/14/2024 2:15 PM EST Office Visit Hematology/Oncology [facility] [place] [address] [facility] [place] [phone] Edmar Meeks MD 200 [facility] [place] [address] 07/30/2024 1:30 PM EDT Office Visit Neurology [facility] [place] [address] [facility] [place] [address] Nataliya Vieyra PA-C 21 [facility] [place] [address] Scheduled Procedures Name Priority Associated Diagnoses Date/Ti [...] this encounter Medical Devices Implanted Type Area Hose Stripper Device Identifier Shelf Expiration Date Model / Serial / Lot Graft Lyoplant 10.0x12.5cm 4x5 - [id number] - [id number] Implanted:Qty : 1 on 04/20/2022 by Prudencio Sung III[place] [facility] [place] Head B JEFFERY : [employer] [id number] 09/26/2026 [id number] / [id number] / [id number] Mesh Ti Lo Mal Sm Arc 421.536 - [id number] Implanted:Qty : 1 on 04/20/2022 by Prudencio Sung III, [place] [facility] [place]: Head SYNTHES MAXILLOFACIAL 421.536 / / Screw Ti Lo Pro Sd 4mm 400.834 - [id number] Implanted:Qty : 13 on 04/20/2022 by Prudencio Sung III, [place] [facility] [place]: Head SYNTHES MAXILLOFACIAL 400.834 / / Cover Bur Hol Ti Lo 17 421.527 - [id number] Implanted:Qty : 4 on 04/20/2022 by Prudencio Sung III, [place] [facility] [place]: Head SY[employer]ES MAXILLOFACIAL 421.527 / / Cover Adilene Hole 17mm 421.554 - [id number] Implanted:Qty : 1 on 04/20/2022 by Prudencio Sung III, [place] [facility] [place]: Head SYNTHES MAXILLOF[employer]IAL 421.554 / / Valve Tavr Jayson 29mm - [id number] Implanted:Qty : 1 on 09/05/2022 by Alexis Crenshaw MD at [facility] [place] [employer] [place] [id number] 03/08/2023 [id number] / / documented as of this encounter Advance Directives Documents on File Type Date Recorded Patient Nurse Sane Expl anation Advance Directives and Living Will [...] Care Agent (per Health Care Power of Warehouse Freight Handler document) Care Teams Asset Management Coordinator Relationship Specialty Start Date End Date Jose Angel Weeks DO PCP - General Internal Medicine 07/25/21 documented as of this encounter
--- OUTSIDE RECORDS SUMMARY | 2023-12-11 03:09 | External Medical Summary ---
Author Name Unknown Address Unknown Organization [facility] [place] [address] Laboratory Report Ordering Provider Test Date Status SANJEEV BENAVIDES 11/28/2023 15:05:46 Final Observation Date Value Abnormality Reference (Units ) Status WBC, Total 11/28/2023 15:05:46 5.02 4.00-10.8 0 (K/uL) Final RBC 11/28/2023 15:05:46 3.58 4.50-5.25 (M/uL) Final Hemoglobin 11/28/2023 15:05:46 12.5 Below low normal 14 .0-16.8 (g/dL) Final HCT 11/28/2023 15:05:46 37.3 Below low normal 40. 0-48.4 (%) Final MCV 11/28/2023 15:05:46 104.2 82.0-99.5 (fL) Final MCH 11/28/2023 15:05:46 34.9 27.0-34.0 (pg) Final MCHC 11/28/2023 15:05:46 33.5 32.0-36.0 (g/dL) Final RDW 11/28/2023 15:05:46 10.7 11.5-15.5 (%) Final Platelets 11/28/2023 15:05:46 86 Below low normal 140 -400 (K/uL) Final MPV 11/28/2023 15:05:46 9.3 6.6-11.1 ( fL) Final Performing Location [facility] [address] [place] [address]
--- OUTSIDE RECORDS SUMMARY | 2023-12-11 03:09 | External Medical Summary | Summary of Care ---
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 [employer] Name Role Phone EmilianoherminiaJose Angel DO Primary Care Provider [phone] Encounter Details Date Type Department Care Team (Late st Contact Info) Description 11/26/2023 10:15 AM EDT Nurse Only Family Practice [address] [address] College, Nurse [facility] [address] [address] Arrived Allergies Active Allergy Reactions Criticality Noted Date [...] as of this encounter (statuses as of 11/26/2023) Medications Medication Sig Dispensed Refills Start Date [...] 60 Tablet 5 06/24/2023 Active Nystatin-Triamcinol one 068893-2.1 UNIT/GM-% External Cream (Mycolog)Indication s:Chronic dermatitis APPLY TOPICALLY NEEDED DIRECTED BY PHYSICIAN, uses in groin 30 g 2 11/04/2023 Active documented as of this encounter (statuses as of 11/26/2023) Active Problems Problem Noted Date Diagnosed Date Panic attacks 06/04/2023 Paroxysmal atrial fibrillation 01/29/2023 Obstructive sleep apnea of adult 01/29/2023 Status post transcatheter ao rtic valve replacement (TAVR) using bioprosthesis 09/04/2022 Aortic ectasia 05/18/2022 Atherosclerosis of [place] co 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 angina pectoris 05/18/2022 [...] 09/12 BCC right upper back BCC left druze History of compression fracture of spine 018 Overview: Winter 2017/18, T10, L5 - traumatic 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 leg, recurrent Diastolic dysfunction 07/06/2016 Thrombocytopenia 06/05/2013 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 0 10/21/2012 Overview: ICD-10 update of inactive term Insomnia Chronic rhinitis documented as of this encounter (statuses as of 11/26/2023) Resolved Problems Problem Noted Date Diagnosed Date [...] as of this encounter (statuses as of 11/26/2023) Immunizations Name Administration Dates Next Due COVID-19 mRNA, LNP-s, No Pre serve, 2-Dose Series ([employer]) 08/02/2021,02/13/2021,07/28/2020,06/27 COVID-19, MRNA-LNP, 23-24, P F, 30 MCG/0.3 mL, 12 YRS AND ABOVE, IM ([employer]Comirnat) 02/12/2023 Covid-19, Mrna, Lnp-s, Pf, B ivalent, [...] as of this encounter Progress Notes * Aaliyah Clemente LPN - 11/26/2023 1:[address] Rehman looked at area and discussed care plan with patient and family. No orders needed to be placed. Was advised to keep clean and dry. To sit on a pillow to get up from time to time and walk. Thank you documented in this encounter Plan of Treatment Upcoming Encounters Date Type Department Care Team (Late st Contact Info) Description 11/28/2023 2:30 PM EDT Office Visit Cardiology, [facility] [address] [place] [address] Ashok Roger, DO [address] [facility] [place] [address] 12/02/2023 2:00 PM EDT Office Visit Family Practice [address] [place] [address] 293 [facility] [place] [address] Jose Angel Weeks, DO 293 [place] [address] 12/09/2023 2:15 PM EDT Office Visit Dermatology [facility] [address] [place] [address] Jacky Arroyo MD 200 [facility] [place] [address] 04/07/2024 10:00 AM EST Laboratory Laboratory [facility] [address] [place] [phone] [facility] [address] [place] [address] 04/14/2024 2:15 PM EST Office Visit Hematology/Oncology [facility] [place] [address] [place] [phone] Edmar Meeks MD [address] [place] [address] 07/30/2024 1:30 PM EDT Office Visit Neurology [facility] [place] 200 [facility] [place] [address] Nataliya Vieyra PA-C [address] [place] [address] Scheduled Procedures Name Priority Associated Diagnoses Date/Ti [...] this encounter Medical Devices Implanted Type Area Dairy Husbandry Teacher Device Identifier Shelf Expiration Date Model / Serial / Lot Graft Lyoplant 10.0x12.5cm 4x5 - [id number] - [id number] Implanted:Qty : 1 on 04/20/2022 by Prudencio Sung III, MD at [place] [facility] [place] Left: Head B JEFFERY : [employer] [id number] 09/26/2026 [id number] / [id number] / [id number] Mesh Ti Lo Mal Sm Arc 421.536 - [id number] Implanted:Qty : 1 on 04/20/2022 by Prudencio Sung III, MD at [place] [facility] [place] Left: Head SYNTHES MAXILLOFACIAL 421.536 / / Screw Ti Lo Pro Sd 4mm 400.834 - [id number] Implanted:Qty : 13 on 04/20/2022 by Prudencio Sung III, MD at [place] [facility] Left: Head SY[employer]ES MAXILLOF[employer]IAL 400.834 / / Cover Bur Hol Ti Lo 17 421.527 - [id number] Implanted:Qty : 4 on 04/20/2022 by Prudencio Sung III, MD at [place] [facility] Left: Head SYN[employer]ES MAXILLOF[employer]IAL 421.527 / / Cover Adilene Hole 17mm 421.554 - [id number] Implanted:Qty : 1 on 04/20/2022 by Prudencio Sung III, MD at [place] [facility] [place] Left: Head SYNTHES MAXILLOFACIAL 421.554 / / Valve Tavr Jayson 29mm - [id number] Implanted:Qty : 1 on 09/05/2022 by Alexis Crenshaw MD at [facility] [employer] [place] [id number] 03/08/2023 [id number] / / documented as of this encounter Advance Directives Documents on File Type Date Recorded 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
[2023-12-11] MEDS ORDERED: ARTIFICIAL TEARS OP PRN (03:50)
[2023-12-11] MEDS: ACETAMINOPHEN 500 MG TAB PO PRN (03:56)
[2023-12-11 06:32] LABS: Basophils # (auto) 0.02 K/uL (0.00-0.20); Basophils % (auto) 0.4 %; Eosinophils % (auto) 2.1 %; Hematocrit (blood only) 34.5 % (42.0-52.0); Hemoglobin 11.8 g/dl (14.0-18.0); Immature Granulocytes # (auto) 0.01 K/uL (0.01-0.20); Immature Granulocytes % (auto) 0.2 %; Lymphocytes # (auto) 1.33 K/uL (1.20-3.40); Lymphocytes % (auto) 27.6 %; Mean Corpuscular Hemoglobin 34.1 pg (25.0-34.0); Mean Corpuscular Hgb Conc 34.2 g/dL (32.0-36.0); Mean Corpuscular Volume 99.7 fL (80.0-100.0); Monocytes # (auto) 0.52 K/uL (0.11-0.59); Monocytes % (auto) 10.8 %; Neutrophils # (auto) 2.84 K/uL (1.40-6.50); Neutrophils % (auto) 58.9 %; Platelet Count 81 K/uL (130-400); RDW Standard Deviation 39.9 fL (36.4-46.3); Red Blood Count 3.46 M/uL (4.70-6.10); White Blood Count 4.82 K/ul (4.8-10.8)
[2023-12-11 06:57] LABS: Chol HDL Ratio 2.1 (0-5); Creatinine Clr Calc Pharmacy 79.8 ml/min; Est GFR (African American) 99.7 ml/min; Potassium 4.2 mmol/L (3.5-5.1)
[2023-12-11 07:16] LABS: Estimated Average Glucose 108 mg/dl; Hemoglobin A1C 5.4 % (4.5-5.6)
[2023-12-11] MEDS: CHOLECALCIFEROL 10 MCG (400 UNITS) TAB PO SCH (08:30)
[2023-12-11] MEDS: LORATADINE 10 MG TAB PO PRN (08:30)
[2023-12-11] MEDS: NYSTATIN/TRIAMCIN CR 15 GM TUBE EXT SCH (08:30)
[2023-12-11] MEDS: FOLIC ACID 1 MG TAB PO SCH (08:30)
[2023-12-11] MEDS: METOPROLOL TARTRATE 50 MG TAB PO SCH (08:30)
[2023-12-11] MEDS: MUPIROCIN 2% OINT 22 GM TUBE TOP SCH (08:30)
[2023-12-11] MEDS: FLUTICASONE PROPIONATE NA SPR 16 GM BTL SCH (08:30)
[2023-12-11] MEDS: CYANOCOBALAMIN (B-12) 500 MCG TABLET PO SCH (08:30)
[2023-12-11] MEDS: PSYLLIUM or GUAR GUM FIBER 4GM PACKET PO SCH (08:30)
--- NOTE | 2023-12-11 09:09 | Electrocardiogram Report ---
Test Reason : Blood Pressure : */* mmHG Vent. Rate : 57 BPM Atrial Rate : 57 BPM P-R Int : 240 ms QRS Dur : 82 ms QT Int : 412 ms P-R-T Axes : * -3 71 degrees QTcB Int : 401 ms Sinus bradycardia with 1st degree A-V block Poor R wave progression, consider anterior WA vs. lead placement vs. LVH Abnormal ECG When compared with ECG of 09-May-2017 16:53, No significant change Confirmed by Agustin Sparks ([id number]) on 12/11/2023 9:09:26 AM Referred By: Confirmed By: Agustin Sparks
[2023-12-11] MEDS: LIFITEGRAST 1 EACH DROPERETTE OP SCH (13:31)
--- NOTE | 2023-12-11 13:51 | Neurology Consultation ---
Date of Consultation December 11, 2023 Assessment & Plan (1) Stroke-like symptoms: Transient left eye vision loss suspect TIA Recommend continued stroke work up to include the following: Echocardiogram as part of complete stroke workup Continue frequent neurological assessments Obtain stat CT brain without contrast for any acute neurological decline Continue to monitor/control blood pressure & blood glucose Continue to monitor telemetry closely Recommend ZioPatch at DC if no evidence of arrhythmia during inpatient monitoring Continue to monitor renal and hepatic function, keep euvolemic Metabolic workup should include hgbA1c, fasting lipids, homocysteine, TSH, D Dimer, RPR, urinalysis Recommend continue full anticoagulation Monitor closely for s/s of hemorrhage Repeat CT brain without contrast in AM Recommend high dose statin therapy indefinitely if tolerated Ok from neurology perspective for VTE prophylaxis PT/OT/SLT to eval and treat Recommend eval for REENA and consider outpatient polysomnography Telehealth Consultation Telehealth Information Telehealth Information: I performed this visit using a real-time telehealth connection between my location and the patients location ([facility]). After connecting through interactive tele-video, patient was identified by name and date of and/or wristband check.Patient (or authorized healthcare registered representative) was informed that this was a telemedicine visit and it was being conducted confidentially over secure lines. My office door was closed and no one else was present in the room with me.Patient (or authorized healthcare registered representative) provided consent to proceed with the visit, expressed an understanding of privacy and security of the telemedicine visit, and gave permission to have a hospital registered representative in the room in order to assist with the visit and to conduct portions of the visit, as needed. I informed the patient (or authorized healthcare registered representative) that I reviewed their record and presented the opportunity for them to ask any questions regarding the visit today. The patient agreed to participate. History of Present Illness Reason for Consultation: Stroke like symptoms Requesting Physician: Dr. Granados Attending Physician: Josh Granados, DO History of Present Illness 83yo male with significant past medical history of HTN TAVR chronic hyponatremia thrombocytopenia currently on full anticoagulation for DVT and paroxysmal AFIB as well as noted traumatic SDH following a fall in late 2021 at which time, per documentation review he underwent decompressive craniotomy presented yesterday with complaint of transient left eye vision loss. Reportedly yesterday lost vision for approx 45 minutes and went to eye doctor recommended presenting to ER for continued stroke workup. He has undergone CT brain without contrast revealing no overt evidence of acute intracranial process. He has undergone MRI brain revealing no evidence consistent with acute ischemic stoke. There is evidence of chronic fluid accumulation vs hygroma left hemisphere. CTA head & neck performed which both appears unremarkable for evidence of LVO or significant/flow limiting stenosis. I have performed televideo consultation. He is alert & oriented; able to answer all questions appropriately, name objects on televideo monitor, repeat phrases and perform complex/embedded commands without deficit. Neurological exam is non lateralizing/nonfocal in terms of motor strength and coordination. Allergies Allergy/AdvReac Type Severity Reaction Status Date / Time aspirin AdvReac Unknown CANNOT Verified 08/14/23 15:48 TAKE DUE TO GASTRITIS celecoxib AdvReac Unknown DIRECTOR SKILLS Verified 08/14/23 15:48 USE CAUSED SEVERE HEARTBURN codeine AdvReac Unknown GENERAL Verified 08/14/23 15:48 ILL FEELING enoxaparin [From Lovenox] AdvReac Unknown thrombocyto Verified 08/14/23 15:48 penia finasteride AdvReac Unknown CAUSED Verified 08/14/23 15:48 GASTRITIS garlic AdvReac Unknown stomach Verified 08/14/23 15:48 cramp, diarrhea heparin AdvReac Unknown "not to be Verified 08/14/23 15:48 used with Eliquis" per pt hydrocodone AdvReac Unknown vomiting Verified 08/14/23 15:48 hydromorphone [From Dilaudid] AdvReac Unknown constipatio Verified 08/14/23 15:48 n ibuprofen AdvReac Unknown CANNOT Verified 08/14/23 15:48 TAKE DUE TO GASTRITIS lidocaine AdvReac Unknown lidocaine Verified 08/14/23 15:48 patch --> sinus infection loratadine AdvReac Unknown RACING Verified 08/14/23 15:48 HEART onion AdvReac Unknown upset Verified 08/14/23 15:48 stomach/diarrhea oxycodone AdvReac Unknown "KNOCKS ME Verified 08/14/23 15:48 OUT" pseudoephedrine AdvReac Unknown RACING Verified 08/14/23 15:48 HEART rofecoxib AdvReac Unknown GENERAL Verified 08/14/23 15:48 ILL FEELING valdecoxib AdvReac Unknown GENERAL Verified 08/14/23 15:48 ILL FEELING Home Medications Medication Instructions Recorded Confirmed Type cyanocobalamin (vitamin B-12) 500 500 mcg PO QAM 04/01/20 12/10/23 History mcg tablet acetaminophen 500 mg tablet 1,000 mg PO Q8 PRN mild/moderate 06/15/20 12/10/23 History pain cholecalciferol (vitamin D3) 10 400 unit PO QAM 06/15/20 12/10/23 History mcg (400 unit) tablet (Vitamin D3) fluticasone propionate 50 2 spray intranasal QAM 06/15/20 12/10/23 History mcg/actuation nasal spray,suspension (Flonase Allergy Relief) lifitegrast 5 % eye drops in a 1 drp OPB BID 06/15/20 12/10/23 History dropperette (Xiidra) psyllium 2 tsp PO BID 11/28/20 12/10/23 History amoxicillin 500 mg capsule 2,000 mg PO ONCE PRN 30-60 min 12/12/22 12/10/23 History prior to dentist apixaban 5 mg tablet (Eliquis) 5 mg PO BID 12/12/22 12/10/23 History folic acid 1 mg tablet 1 mg PO QAM 02/01/23 12/10/23 History metoprolol tartrate 50 mg tablet 50 mg PO BID 02/01/23 12/10/23 History dextran 70-hypromellose (PF) 0.1 1 drp ophthalmic (eye) HS 12/10/23 12/10/23 History %-0.3 % eye drops in a dropperette (Artificial Tears (PF)) loratadine 10 mg disintegrating 10 mg PO DAILY PRN allergies 12/10/23 12/10/23 H istory tablet (Alavert) mupirocin calcium 2 % topical cream 1 applic topical TID 12/10/23 12/10/23 History nystatin-triamcinolone 100,000 1 applic topical UD 12/10/23 12/10/23 History unit/g-0.1 % topical cream Patient History Medical History Paroxysmal atrial fibrillation on Eliquis Subdural 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 Roger History of duodenal ulcer MAY 2020 - RESOLVED History of gastritis Lumbar spinal stenosis Pt unable to stand > 15 min in same space per PAT RN call Injury of right hip multiple times -- treated with physical therapy Deep vein thrombosis x2 both DVT Right leg s/p shoulder surgery and the other after extended driving. [place]. (2004 & 2006) SCC (squamous cell carcinoma) s/p excision BCC (basal cell carcinoma) s/p excision Sleep apnea not currently on treatment Thrombocytopenia per [facility] heme onc, usual range 100,000-110,000-pre-op 01/2023: 87,000 On anticoagulant therapy Anemia monitoring per [facility] heme/onc Spinal fracture 2009 (L5 & L10 & L12) s/p fall Gout last flare yrs ago PSVT (paroxysmal supraventricular tachycardia) ~6330-9477, treated in [facility]. no problems since 2012. Surgical History History of cardiac cath Feb 2022 > [place] > no stents Hx of hernia repair Right Open Inguinal Hernia Repair with [facility] H/O aortic valve repair August 2022 > [place] Brain bleed subdural hematoma-hospitalized at [place] Mar 2022 > due to a fall > surgical repair > was in ICU 11 days > Coumadin had been DC'ed was off thinner for a while, now on Eliquis History of esophagogastroduodenoscopy (EGD) History of cataract surgery bilateral History of cholecystectomy History of colonoscopy Status post Mohs surgery HX History of surgical removal of skin lesion H/O shoulder surgery bilateral Family History Father Heart disease Brother Heart disease Cancer Leukemia Social History Smoking Status: Never smoker Second Hand Exposure: No; Do You Dip or Chew Tobacco: No; Hx Alcohol Use: No Hx Substance Use: No Preferred Language: French Communication Ability: Effective Attenuator Required: No Beliefs That Will Affect Care: None marital status: Current Living Situation: Spouse current occupational status: retired Other Information That Helps Us Care for You: No Feels Safe at Home: Yes Diet: regular Assistive Devices: None Physical Exam Neurological Examination: Mental Status: Awake and alert. Oriented to person, place, and time. Fluency naming repetition and comprehension appear grossly intact. Affect remains appropriate. CN testing: I: Denies changes in ability to smell II:Reports no changes in visual acuity III/IV/: No evidence of gaze preference, hippus, nystagmus or roving eye movements V: Facial sensation reportedly grossly intact to light touch bilaterally VII: Facial movements appear without evidence of asymmetry VIII: Hearing appears grossly intact to loud voice bilaterally IX/X: Palate appears to elevate symmetrically XI: Shoulder shrug appears symmetric/ grossly intact bilaterally XII: Tongue protrudes midline without evidence of biting Motor exam: Strength appears grossly intact/symmetric in all extremities Sensory: Sensation is reportedly grossly intact throughout Coordination: No apparent evidence of dysmetria or dysdiadochokinesia Reflexes: Deferred Gait: Deferred Results & Data Vital Signs (Past 12 Hours) Vital Signs Temp Pulse Pulse Resp BP Pulse Ox O2 Del Method 12/11/23 11:00 36.6 C 57 L 16 166/72 H 98 Room Air 12/11/23 08:35 Room Air 12/11/23 07:00 59 L 12/11/23 07:00 36.7 C 60 16 169/76 H 97 Room Air 12/11/23 03:42 36.7 C 60 18 155/76 H 96 Room Air Laboratory Results Abnormal lab results 12/10/23 12/10/23 12/11/23 Range/Units 16:11 18:03 05:53 WBC 4.72 L (4.8-10.8) K/ul RBC 3.71 L 3.46 L (4.70-6.10) M/uL Hgb 12.9 L 11.8 L (14.0-18.0) g/dl Hct 37.4 L 34.5 L (42.0-52.0) % MCV 100.8 H (80.0-100.0) fL MCH 34.8 H 34.1 H (25.0-34.0) pg RDW Coeff of Jaleel 11.1 L 11.0 L (11.5-14.5) % Plt Count 87 L 81 L (130-400) K/uL MPV 9.0 L (9.4-12.4) fL Sodium 129 L 132 L (136-145) mmol/L Chloride 93 L 96 L (98-107) mmol/L BUN 28 H 24 H (6-23) mg/dl BUN/Creatinine Ratio 36.4 H 32.0 H (10-20) Glucose 113 H (70-99(Fasting)) mg/dl AST 12 L (13-39) U/L ALT 6 L (7-52) U/L Globulin 2.4 L (2.5-4.0) gm/dl Urine Blood Trace H (Negative) Diagnostic Findings Neck CTA 12/10/23 00:00 CT angio neck with con, CT angio head w con, CT head/brain wo con CLINICAL HISTORY: cva symptoms TECHNIQUE: Contiguous axial CT images of the head were acquired from the base of the skull to the vertex without intravenous contrast administration. CT angiography of the head and neck was performed following intravenous administration of iodinated contrast. Coronal and sagittal MIPS were obtained from the axial data set and were submitted for review. Automated dose lowering techniques and/or adjustment according to patient size were utilized for this examination. All measurements were calculated based on NASCET criteria. CT DOSE: 1292.41 mGy.cm Comparison: None available at the time of this dictation. FINDINGS: CT head: Areas of decreased attenuation are present in the periventricular and subcortical white matter bilaterally consistent with small vessel ischemic disease. Generalized cerebral atrophy with commensurate enlargement of the ventricles, sulci, and cisterns is also present. There is no acute intracranial hemorrhage or evidence of acute territorial infarction. No shift of the midline structures, mass effect, or extra-axial abnormalities are shown. Ather osclerotic calcifications are present in the intracranial segments of the internal carotid arteries. Postsurgical changes of left craniotomy is seen with subpleural thickening. Lungs and soft tissues are unremarkable. CTA Neck: A 3 vessel aortic arch is shown. There is no significant atherosclerotic plaque in the aortic arch or the origins of the innominate, left common carotid, and left subclavian arteries. The common carotid, external carotid, cervical segments of the internal carotid arteries, and the cervical segments of the vertebral arteries are patent without hemodynamically signi ficant stenosis. The right vertebral artery is dominant. The left vertebral artery terminates as PICA. CTA Head: The anterior and posterior cerebral circulations are patent. No hemodynamically significant stenosis, aneurysm, dissection, or arteriovenous malformation is shown. IMPRESSION: 1. No acute intracranial hemorrhage, evidence of acute territorial infarction, or other acute intracranial disease process. 2. No occlusion, hemodynamically significant stenosis, or dissection in the major cervical arteries. 3. No occlusion, hemodynamically significant stenosis, aneurysm, dissection, or arteriovenous malformation in the major intracranial arteries. Assessment of stenosis of the internal carotid arteries is based on NASCET criteria. ACT 112: Negative or not required by law. Electronically signed by: Ancelmo Salmon M.D. 12/10/2023 6:51 PM Chest X-Ray 12/10/23 16:05 XR chest 1V portable CLINICAL HISTORY: stroke alert TECHNIQUE: Single frontal radiograph of the chest was obtained. Comparison: Comparison is made to chest radiograph 05/09/2017 FINDINGS: Left reverse arthroplasty is seen. Aortic valvular prosthesis is seen. Calcifica tion of the aortic arch is seen. The lungs are clear. No evidence of pleural effusion or pneumothorax. IMPRESSION: No acute chest disease. ACT 112: Negative or not required by law. Electronically signed by: Ancelmo Salmon M.D. 12/10/2023 5:[address] 12/10/23 16:05 CT angio neck with con, CT angio head w con, CT head/brain wo con CLINICAL HISTORY: cva symptoms TECHNIQUE: Contiguous axial CT images of the head were acquired from the base of the skull to the vertex without intravenous contrast administration. CT angiography of the head and neck was performed following intravenous administration of iodinated contrast. Coronal and sagittal MIPS were obtained from the axial data set and were submitted for review. Automated dose lowering techniques and/or adjustment according to patient size were utilized for this examination. All measurements were calculated based on NASCET criteria. CT DOSE: 1292.41 mGy.cm Comparison: None available at the time of this dictation. FINDINGS: CT head: Areas of decreased attenuation are present in the periventricular and subcortical white matter bilaterally consistent with small vessel ischemic di sease. Generalized cerebral atrophy with commensurate enlargement of the ventricles, sulci, and cisterns is also present. There is no acute intracranial hemorrhage or evidence of acute territorial infarction. No shift of the midline structures, mass effect, or extra-axial abnormalities are shown. Atherosclerotic calcifications are present in the intracranial segments of the internal carotid arteries. Postsurgical changes of left craniotomy is seen with subpleural thickening. Lungs and soft tissues are unremarkable. CTA Neck: A 3 vessel aortic arch is shown. There is no significant athero sclerotic plaque in the aortic arch or the origins of the innominate, left common carotid, and left subclavian arteries. The common carotid, external carotid, cervical segments of the internal carotid arteries, and the cervical segments of the vertebral arteries are patent without hemodynamically significant stenosis. The right vertebral artery is dominant. The left vertebral artery terminates as PICA. CTA Head: The anterior and posterior cerebral circulations are patent. No hemodynamically significant stenosis, aneurysm, dissection, or arteriovenous malformation is shown. IMPRESSION: 1. No acute intracranial hemorrhage, evidence of acute territorial infarction, or other acute intracranial disease process. 2. No occlusion, hemodynamically significant stenosis, or dissection in the major cervical arteries. 3. No occlusion, hemodynamically significant stenosis, aneurysm, dissection, or arteriovenous malformation in the major intracranial arteries. Assessment of stenosis of the internal carotid arteries is based on NASCET criteria. ACT 112: Negative or not required by law. Electronically signed by: Ancelmo Salmon M.D. 12/10/2023 6:51 PM Head CTA 12/10/23 17:22 CT angio neck with con, CT angio head w con, CT head/brain wo con CLINICAL HISTORY: cva symptoms TECHNIQUE: Contiguous axial CT images of the head were acquired from the base of the skull to the vertex without intravenous contrast administration. CT angiography of the head and neck was performed following intravenous administration of iodinated contrast. Coronal and sagittal MIPS were obtained from the axial data set and were submitted for review. Automated dose lowering techniques and/or adjustment according to patient size were utilized for this examination. All measurements were calculated based on NASCET criteria. CT DOSE: 1292.41 mGy.cm Comparison: None available at the time of this dictation. FINDINGS: CT head: Areas of decreased attenuation are present in the periventricular and subcortical white matter bilaterally consistent with small vessel ischemic disease. Generalized cerebral atrophy with commensurate enlargement of the ventricles, sulci, and cisterns is also present. There is no acute intracranial hemorrhage or evidence of acute territorial infarction. No shift of the midline structures, mass effect, or extra-axial abnormalities are shown. Atherosclerotic calcifications are present in the intracranial segments of the internal carotid arteries. Postsurgical changes of left craniotomy is seen with subpleural thickening. Lungs and soft tissues are unremarkable. CTA Neck: A 3 vessel aortic arch is shown. There is no significant atherosclerotic plaque in the aortic arch or the origins of the innominate, left common carotid, and left subclavian arteries. The common carotid, external carotid, cervical segments of the internal carotid arteries, and the cervical segments of the vertebral arteries are patent without hemodynamically significant stenosis. The right vertebral artery is dominant. The left vertebral artery terminates as PICA. CTA Head: The anterior and posterior cerebral circulations are patent. No hemodynamically significant stenosis, aneurysm, dissection, or arteriovenous malformation is shown. IMPRESSION: 1. No acute intracranial hemorrhage, evidence of acute territorial infarction, or other acute intracranial disease process. 2. No occlusion, hemodynamically significant stenosis, or dissection in the major cervical arteries. 3. No occlusion, hemodynamically significant stenosis, aneurysm, dissection, or arteriovenous malformation in the major intracranial arteries. Assessment of stenosis of the internal carotid arteries is based on NASCET criteria. ACT 112: Negative or not required by law. Electronically signed by: Ancelmo Salmon M.D. 12/10/2023 6:51 PM Brain MRI 12/10/23 21:38 Exam(s): MRI HEAD W/WO Contrast IV Amt: 7.5cc gadavist EXAM: MR Head Without and With Intravenous Contrast CLINICAL HISTORY: Reason for exam: TIA, transient left eye vison loss. TECHNIQUE: Magnetic resonance images of the head/brain without and with intravenous contrast in multiple planes. CONTRAST: Patient received 7.5cc gadavist of IV contrast COMPARISON: Prior head CT from December 10, 2023. FINDINGS: Brain: Small left subdural fluid collection measuring 6.1 mm in maximal diameter. Mild nonspecific white matter changes. No mass. No hemorrhage. No acute infarct. The flow voids of the base of the brain are intact. Normal enhancement the brain parenchyma. The dural venous sinuses are patent. Ventricles: Unremarkable. No ventriculomegaly. Bones/joints: Moderate left craniotomy. No acute fracture. Sinuses: Unremarkable as visualized. No acute sinusitis. Mastoid air cells: There is a small amount of fluid in the left mastoid air cells. No mastoid effusion. Orbits: Unremarkable as visualized. IMPRESSION: No evidence of acute intracranial pathology. Small left subdural fluid collection measuring 6.1 mm in maximal diameter without evidence of midline shift. Mild nonspecific white matter changes. Electronically signed by: Piper Josue MD 12/11/23 01:18 AM Medications Administered Home Medications Medication Instructions Recorded Confirmed Last Taken cyanocobalamin (vitamin B-12) 500 500 mcg PO QAM 04/01/20 12/10/23 03/10/23 09:00 mcg tablet acetaminophen 500 mg tablet 1,000 mg PO Q8 PRN mild/moderate 06/15/20 12/10/23 03/11/23 07:00 pain cholecalciferol (vitamin D3) 10 400 unit PO QAM 06/15/20 12/10/23 03/10/23 09:00 mcg (400 unit) tablet (Vitamin D3) fluticasone propionate 50 2 spray intranasal QAM 06/15/20 12/10/23 03/10/23 09:00 mcg/actuation nasal spray,suspension (Flonase Allergy Relief) lifitegrast 5 % eye drops in a 1 drp OPB BID 06/15/20 12/10/23 03/11/23 10:00 dropperette (Xiidra) psyllium 2 tsp PO BID 11/28/20 12/10/23 07/02/21 12:00 amoxicillin 500 mg capsule 2,000 mg PO ONCE PRN 30-60 min 12/12/22 12/10/23 Un known prior to dentist apixaban 5 mg tablet (Eliquis) 5 mg PO BID 12/12/22 12/10/23 03/08/23 20:00 folic acid 1 mg tablet 1 mg PO QAM 02/01/23 12/10/23 03/10/23 09:00 metoprolol tartrate 50 mg tablet 50 mg PO BID 02/01/23 12/10/23 03/11/23 07:00 dextran 70-hypromellose (PF) 0.1 1 drp ophthalmic (eye) HS 12/10/23 12/10/23 Unknown %-0.3 % eye drops in a dropperette (Artificial Tears (PF)) loratadine 10 mg disintegrating 10 mg PO DAILY PRN allergies 12/10/23 12/10/23 Unknown tablet (Alavert) mupirocin calcium 2 % topical cream 1 applic topical TID 12/10/23 12/10/23 Unknown nystatin-triamcinolone 100,000 1 applic topical UD 12/10/23 12/10/23 Unknown unit/g-0.1 % topical cream Active Medications Generic Name Dose Route Start Last Admin Trade Name Freq PRN Reason Stop Dose Admin Acetaminophen 1,000 mg 12/11/23 03:32 12/11/23 03:56 Acetaminophen 500 Mg Tab PO 01/09/24 21:37 1,000 mg TID PRN Administration Pain or Fever Cyanocobalamin 500 mcg 12/11/23 09:00 12/11/23 08:30 Cyanocobalamin (B-12) 500 Mcg Tablet PO 01/10/24 08:59 500 mcg QAM LESVIA Administration Fluticasone Propionate 2 sprays 12/11/23 09:00 12/11/23 08:30 Fluticasone Propionate Na Spr 16 Gm Btl NA 01/10/24 08:59 2 sprays QAM LESVIA Administration Folic Acid 1 mg 12/11/23 09:00 12/11/23 08:30 Folic Acid 1 Mg Tab PO 01/10/24 08:59 1 mg QAM LESVIA Administration Lifitegrast 1 each 12/11/23 13:00 12/11/23 13:31 Lifitegrast 1 Each Droperette OP 01/10/24 12:59 1 each BID LESVIA Administration Loratadine 10 mg 12/11/23 03:51 12/11/23 08:30 Loratadine 10 Mg Tab PO 01/10/24 03:50 10 mg DAILY PRN Administration allergies Metoprolol Tartrate 50 mg 12/11/23 09:00 12/11/23 08:30 Metoprolol Tartrate 50 Mg Tab PO 01/10/24 08:59 50 mg BID LESVIA Administration Mupirocin 1 appln 12/11/23 09:00 12/11/23 08:30 Mupirocin 2% Oint 22 Gm Tube TOP 01/10/24 08:59 Not Given TID LESVIA Nystatin/Triamcinolone Acetonide 1 appln 12/11/23 09:00 12/11/23 08:30 Nystatin/Triamcin Cr 15 Gm Tube EXT 01/10/24 08:59 Not Given DAILY LESVIA Psyllium Hydrophilic Mucilloid 4 gm 12/11/23 09:00 12/11/23 08:30 Psyllium Or Guar Gum Fiber 4gm Packet PO 01/10/24 08:59 4 gm BID LESVIA Administration Vitamin D 10 mcg 12/11/23 09:00 12/11/23 08:30 Cholecalciferol 10 Mcg (400 Units) Tab PO 01/10/24 08:59 10 mcg QAM LESVIA Administration
--- NOTE | 2023-12-11 17:13 | Hospitalist Progress Note ---
Date of Service December 11, 2023 Assessment & Plan (1) Stroke-like symptoms: Plan: In summation, 83-year-old male with past medical history significant for chronic hyponatremia, obstructive sleep apnea nontolerant of CPAP, mild ascending aortic dilatation, paroxysmal atrial fibrillation, diastolic dysfunction, aortic stenosis s/p TAVR, history of CAD, history of compression fracture of spine, osteoarthritis, history of chronic thrombocytopenia, history of recurrent DVT, history of BPH, history of panic attacks, history of fall in 2021 with left subdural hematoma s/p craniotomy is admitted with transient left eye vision loss. He does state that he gets visual ocular migraines and auras which are similar. Strokelike symptoms TIA Transient left eye vision loss CT head, CTA head and neck unremarkable MRI- showing small left SDH 6.1mm , chronic per radiology. Full stroke workup with echo will check lipid profile and HbA1c levels Speech evaluation PT OT evaluation Telemetry Discussed case with neurology. They feel all of the MRI findings are chronic. They recommend restarting apixaban. They are okay with repeat CT scan in the a.m. Chronic hyponatremia Sodium 129--> 132 today Sodium generally low 130s and high 120s Will follow labs History of DVT On Eliquis Restart Eliquis okay per neurology History of thrombocytopenia Platelet 87-->81 Will follow labs Mild anemia and leukopenia Following with hematology Mild aortic root/ascending aortic dilatation Follow-up with cardio Chronic diastolic dysfunction Monitor for volume overload Episode of paroxysmal atrial fibrillation during hospital stay in March 2022 On Eliquis Hypertension On metoprolol Will monitor BPs DVT prophylaxis Eliquis Disposition Telemetry Full code. Total 53 minutes spent in care coordination, review of case and discussion with family Admission and Anticipated Discharge Date Admission Date: December 10, 2023 Subjective Patient seen at bedside. His is present. He is feeling okay. He does get visual auras quite frequently from his migraine headaches. His notes that he did have some dietary changes which may be contributing. Neurology has been consulted. They feel that the CT findings are stable and recommend restarting apixaban. They do recommend repeating the CT scan again tomorrow morning. Review of Systems Review of Systems: Constitutional- no fever; no weight loss Eyes-visual auras as above ENT- no sinus drainage; no pharyngitis Pulmonary- no cough, no wheezing, no shortness of breath Cardiac- no chest pain, no palpitations, no orthopnea, no dependent edema GI- no nausea, no vomiting, no diarrhea, no melena, no hematochezia - no dysuria, no hematuria Musculoskeletal- no arthralgias, no myalgias Derm- no rashes, no new skin lesions, no changing skin lesions Hematologic- no unusual bruising, no unusual bleeding Lymphatics- no adenopathy Endocrine- no polyuria or polydipsia; no heat or cold intolerance Neuro- no headaches, no focal neurologic symptoms Psych- no anxiety, no depression Physical Exam Physical Exam: General-elderly, male patient seen at bedside Head- atraumatic Eyes- PERRL, EOMI, anicteric ENT- oropharynx clear Neck- supple, no JVD, no adenopathy, no thyromegaly; carotids +2/2, no bruits appreciated Lungs- clear to auscultation and percussion Heart- regular rhythm; no murmur, no gallop, no rub appreciated Abdomen- normal bowel sounds, soft, nontender, no masses or hepatosplenomegaly Extremities- no pretibial edema, no calf tenderness; peripheral pulses intact Neuro- alert, oriented x 3; PERRL, EOMI; no facial palsy; no dysarthria; motor 5/5 bilaterally; no cogwheel rigidity; patellar DTRs +2/2; toes downgoing bilaterally; finger to nose intact bilaterally Skin- warm & dry Results & Data Results & Data Vital Signs (Past 12 Hours) Vital Signs Temp Pulse Pulse Resp BP Pulse Ox O2 Del Method 12/11/23 14:42 36.8 C 61 16 154/62 H 93 Room Air 12/11/23 13:00 54 L 12/11/23 11:00 36.6 C 57 L 16 166/72 H 98 Room Air 12/11/23 08:35 Room Air 12/11/23 07:00 59 L 12/11/23 07:00 36.7 C 60 16 169/76 H 97 Room Air Laboratory Results Laboratory Results WBC 4.82 K/ul (4.8-10.8) 12/11/23 05:53 RBC 3.46 M/uL (4.70-6.10) L 12/11/23 05:53 Hgb 11.8 g/dl (14.0-18.0) L 12/11/23 05:53 Hct 34.5 % (42.0-52.0) L 12/11/23 05:53 MCV 99.7 fL (80.0-100.0) 12/11/23 05:53 MCH 34.1 pg (25.0-34.0) H 12/11/23 05:53 MCHC 34.2 g/dL (32.0-36.0) 12/11/23 05:53 RDW Std Deviation 39.9 fL (36.4-46.3) 12/11/23 05:53 RDW Coeff of Jaleel 11.0 % (11.5-14.5) L 12/11/23 05:53 Plt Count 81 K/uL (130-400) L 12/11/23 05:53 MPV 9.0 fL (9.4-12.4) L 12/11/23 05:53 Immature Gran % (Auto) 0.2 % 12/11/23 05:53 Neut % (Auto) 58.9 % 12/11/23 05:53 Lymph % (Auto) 27.6 % 12/11/23 05:53 Collier % (Auto) 10.8 % 12/11/23 05:53 Eos % (Auto) 2.1 % 12/11/23 05:53 Baso % (Auto) 0.4 % 12/11/23 05:53 Neut # (Auto) 2.84 K/uL (1.40-6.50) 12/11/23 05:53 Lymph # (Auto) 1.33 K/uL (1.20-3.40) 12/11/23 05:53 Collier # (Auto) 0.52 K/uL (0.11-0.59) 12/11/23 05:53 Eos # (Auto) 0.10 K/uL (0.00-0.50) 12/11/23 05:53 Baso # (Auto) 0.02 K/uL (0.00-0.20) 12/11/23 05:53 Immature Gran # (Auto) 0.01 K/uL (0.01-0.20) 12/11/23 05:53 PT 11.6 Seconds (9.0-12.0) 12/10/23 16:11 INR 1.1 (0.9-1.1) 12/10/23 16:11 APTT 31 Seconds (21-31) 12/10/23 16:11 PTT Ratio 1.2 12/10/23 16:11 Sodium 132 mmol/L (136-145) L 12/11/23 05:53 Potassium 4.2 mmol/L (3.5-5.1) 12/11/23 05:53 Chloride 96 mmol/L (98-107) L 12/11/23 05:53 Carbon Dioxide 31 mmol/L (21-32) 12/11/23 05:53 Anion Gap 5 (3-11) 12/11/23 05:53 BUN 24 mg/dl (6-23) H 12/11/23 05:53 Creatinine 0.75 mg/dl (0.6-1.4) 12/11/23 05:53 Est Cr Clr Drug Dosing 79.8 ml/min 12/11/23 05:53 Est GFR ( Amer) 99.7 ml/min 12/11/23 05:53 Est GFR (Non-Af Amer) 86.0 ml/min 12/11/23 05:53 BUN/Creatinine Ratio 32.0 (10-20) H 12/11/23 05:53 Glucose 89 mg/dl (70-99(Fasting)) 12/11/23 05:53 Estimat Average Glucose 108 mg/dl 12/11/23 05:53 Hemoglobin A1c 5.4 % (4.5-5.6) 12/11/23 05:53 Calcium 9.0 mg/dl (8.6-10.3) 12/11/23 05:53 Magnesium 2.0 mg/dl (1.7-2.4) 12/10/23 16:11 Total Bilirubin 0.9 mg/dl (0.2-1.0) 12/10/23 16:11 AST 12 U/L (13-39) L 12/10/23 16:11 ALT 6 U/L (7-52) L 12/10/23 16:11 Alkaline Phosphatase 60 U/L (34-104) 12/10/23 16:11 Total Protein 6.9 gm/dl (6.0-8.3) 12/10/23 16:11 Albumin 4.5 gm/dl (3.4-5.0) 12/10/23 16:11 Globulin 2.4 gm/dl (2.5-4.0) L 12/10/23 16:11 Albumin/Globulin Ratio 1.9 (0.9-2) 12/10/23 16:11 Triglycerides 42 mg/dl (0-150) 12/11/23 05:53 Cholesterol 115 mg/dl (0-200) 12/11/23 05:53 LDL Cholesterol, Calc 53 mg/dl 12/11/23 05:53 VLDL Cholesterol, Calc 8 mg/dl (0-30) 12/11/23 05:53 HDL Cholesterol 54 mg/dl 12/11/23 05:53 Cholesterol/HDL Ratio 2.1 (0-5) 12/11/23 05:53 Urine Color Yellow 12/10/23 18:03 Urine Appearance Clear (Clear) 12/10/23 18:03 Urine pH 5.5 (4.5-7.5) 12/10/23 18:03 Ur Specific [place] 1.017 (1.000-1.030) 12/10/23 18:03 Urine Protein Negative (Negative) 12/10/23 18:03 Urine Glucose (UA) Negative (Negative) 12/10/23 18:03 Urine Ketones Negative (Negative) 12/10/23 18:03 Urine Blood Trace (Negative) H 12/10/23 18:03 Urine Nitrite Negative (Negative) 12/10/23 18:03 Urine Bilirubin Negative (Negative) 12/10/23 18:03 Urine Urobilinogen Negative (Negative) 12/10/23 18:03 Ur Leukocyte Esterase Negative (Negative) 12/10/23 18:03 Urine WBC (Auto) 0-5 /hpf (0-5) 12/10/23 18:03 Urine RBC (Auto) 0-2 /hpf (0-2) 12/10/23 18:03 U Hyaline Cast (Auto) 0-2 /lpf (0-2) 12/10/23 18:03 U Epithel Cells (Auto) 0-2 /hpf (0-2) 12/10/23 18:03 Urine Bacteria (Auto) None Seen (None Seen) 12/10/23 18:03 Impressions Neck CTA 12/10/23 00:00 CT angio neck with con, CT angio head w con, CT head/brain wo con CLINICAL HISTORY: cva symptoms TECHNIQUE: Contiguous axial CT images of the head were acquired from the base of the skull to the vertex without intravenous contrast administration. CT angiography of the head and neck was performed following intravenous administration of iodinated contrast. Coronal and sagittal MIPS were obtained from the axial data set and were submitted for review. Automated dose lowering techniques and/or adjustment according to patient size were utilized for this examination. All measurements were calculated based on NASCET criteria. CT DOSE: 1292.41 mGy.cm Comparison: None available at the time of this dictation. FINDINGS: CT head: Areas of decreased attenuation are present in the periventricular and subcortical white matter bilaterally consistent with small vessel ischemic disease. Generalized cerebral atrophy with commensurate enlargement of the ventricles, sulci, and cisterns is also present. There is no acute intracranial hemorrhage or evidence of acute territorial infarction. No shift of the midline structures, mass effect, or extra-axial abnormalities are shown. Atherosclerotic calcifications are present in the intracranial segments of the internal carotid arteries. Postsurgical changes of left craniotomy is seen with subpleural thickening. Lungs and soft tissues are unremarkable. CTA Neck: A 3 vessel aortic arch is shown. There is no significant atherosclerotic plaque in the aortic arch or the origins of the innominate, left common carotid, and left subclavian arteries. The common carotid, external carotid, cervical segments of the internal carotid arteries, and the cervical segments of the vertebral arteries are patent without hemodynamically significant stenosis. The right vertebral artery is dominant. The left vertebral artery terminates as PICA. CTA Head: The anterior and posterior cerebral circulations are patent. No hemodynamically significant stenosis, aneurysm, dissection, or arteriovenous malformation is shown. IMPRESSION: 1. No acute intracranial hemorrhage, evidence of acute territorial infarction, or other acute intracranial disease process. 2. No occlusion, hemodynamically significant stenosis, or dissection in the major cervical arteries. 3. No occlusion, hemodynamically significant stenosis, aneurysm, dissection, or arteriovenous malformation in the major intracranial arteries. Assessment of stenosis of the internal carotid arteries is based on NASCET criteria. ACT 112: Negative or not required by law. Electronically signed by: Ancelmo Salmon M.D. 12/10/2023 6:51 PM Chest X-Ray 12/10/23 16:05 XR chest 1V portable CLINICAL HISTORY: stroke alert TECHNIQUE: Single frontal radiograph of the chest was obtained. Comparison: Comparison is made to chest radiograph 05/09/2017 FINDINGS: Left reverse arthroplasty is seen. Aortic valvular prosthesis is seen. Calcification of the aortic arch is seen. The lungs are clear. No evidence of pleural effusion or pneumothorax. IMPRESSION: No acute chest disease. ACT 112: Negative or not required by law. Electronically signed by: Ancelmo Salmon M.D. 12/10/2023 5:[address] 12/10/23 16:05 CT angio neck with con, CT angio head w con, CT head/brain wo con CLINICAL HISTORY: cva symptoms TECHNIQUE: Contiguous axial CT images of the head were acquired from the base of the skull to the vertex without intravenous contrast administration. CT angiography of the head and neck was performed following intravenous administration of iodinated contrast. Coronal and sagittal MIPS were obtained from the axial data set and were submitted for review. Automated dose lowering techniques and/or adjustment according to patient size were utilized for this examination. All measurements were calculated based on NASCET criteria. CT DOSE: 1292.41 mGy.cm Comparison: None available at the time of this dictation. FINDINGS: CT head: Areas of decreased attenuation are present in the periventricular and subcortical white matter bilaterally consistent with small vessel ischemic disease. Generalized cerebral atrophy with commensurate enlargement of the ventricles, sulci, and cisterns is also present. There is no acute intracranial hemorrhage or evidence of acute territorial infarction. No shift of the midline structures, mass effect, or extra-axial abnormalities are shown. Atherosclerotic calcifications are present in the intracranial segments of the internal carotid arteries. Postsurgical changes of left craniotomy is seen with subpleural thickening. Lungs and soft tissues are unremarkable. CTA Neck: A 3 vessel aortic arch is shown. There is no significant atherosclerotic plaque in the aortic arch or the origins of the innominate, left common carotid, and left subclavian arteries. The common carotid, external carotid, cervical segments of the internal carotid arteries, and the cervical segments of the vertebral arteries are patent without hemodynamically significant stenosis. The right vertebral artery is dominant. The left vertebral artery terminates as PICA. CTA Head: The anterior and posterior cerebral circulations are patent. No hem odynamically significant stenosis, aneurysm, dissection, or arteriovenous malformation is shown. IMPRESSION: 1. No acute intracranial hemorrhage, evidence of acute territorial infarction, or other acute intracranial disease process. 2. No occlusion, hemodynamically significant stenosis, or dissection in the major cervical arteries. 3. No occlusion, hemodynamically significant stenosis, aneurysm, dissection, or arteriovenous malformation in the major intracranial arteries. Assessment of stenosis of the internal carotid arteries is based on NASCET criteria. ACT 112: Negative or not required by law. Electronically signed by: Ancelmo Salmon M.D. 12/10/2023 6:51 PM Head CTA 12/10/23 17:22 CT angio neck with con, CT angio head w con, CT head/brain wo con CLINICAL HISTORY: cva symptoms TECHNIQUE: Contiguous axial CT images of the head were acquired from the base of the skull to the vertex without intravenous contrast administration. CT angiogr aphy of the head and neck was performed following intravenous administration of iodinated contrast. Coronal and sagittal MIPS were obtained from the axial data set and were submitted for review. Automated dose lowering techniques and/or adjustment according to patient size were utilized for this examination. All measurements were calculated based on NASCET criteria. CT DOSE: 1292.41 mGy.cm Comparison: None available at the time of this dictation. FINDINGS: CT head: Areas of decreased attenuation are present in the periventricular and subcortical white matter bilaterally consistent with small vessel ischemic disease. Generalized cerebral atrophy with commensurate enlargement of the ventricles, sulci, and cisterns is also present. There is no acute intracranial hemorrhage or evidence of acute territorial infarction. No shift of the midline structures, mass effect, or extra-axial abnormalities are shown. Atherosclerotic calcifications are present in the intracranial segments of the internal carotid arteries. Postsurgical changes of left craniotomy is seen with subpleural thickening. Lungs and soft tissues are unremarkable. CTA Neck: A 3 vessel aortic arch is shown. There is no significant atherosclerotic plaque in the aortic arch or the origins of the innominate, left common carotid, and left subclavian arteries. The common carotid, external carotid, cervical segments of the internal carotid arteries, and the cervical segments of the vertebral arteries are patent without hemodynamically significant stenosis. The right vertebral artery is dominant. The left vertebral artery terminates as PICA. CTA Head: The anterior and posterior cerebral circulations are patent. No hemodynamically significant stenosis, aneurysm, dissection, or arteriovenous malformation is shown. IMPRESSION: 1. No acute intracranial hemorrhage, evidence of acute territorial infarction, or other acute intracranial disease process. 2. No occlusion, hemodynamically significant stenosis, or dissection in the major cervical arteries. 3. No occlusion, hemodynamically significant stenosis, aneurysm, dissection, or arteriovenous malformation in the major intracranial arteries. Assessment of stenosis of the internal carotid arteries is based on NASCET criteria. ACT 112: Negative or not required by law. Electronically signed by: Ancelmo Salmon M.D. 12/10/2023 6:51 PM Brain MRI 12/10/23 21:38 Exam(s): MRI HEAD W/WO Contrast IV Amt: 7.5cc gadavist EXAM: MR Head Without and With Intravenous Contrast CLINICAL HISTORY: Reason for exam: TIA, transient left eye vison loss. TECHNIQUE: Magnetic resonance images of the head/brain without and with intravenous contrast in multiple planes. CONTRAST: Patient received 7.5cc gadavist of IV contrast COMPARISON: Prior head CT from December 10, 2023. FINDINGS: Brain: Small left subdural fluid collection measuring 6.1 mm in maximal diameter. Mild nonspecific white matter changes. No mass. No hemorrhage. No acute infarct. The flow voids of the base of the brain are intact. Normal enhancement the brain parenchyma. The dural venous sinuses are patent. Ventricles: Unremarkable. No ventriculomegaly. Bones/joints: Moderate left craniotomy. No acute fracture. Sinuses: Unremarkable as visualized. No acute sinusitis. Mastoid air cells: There is a small amount of fluid in the left mastoid air cells. No mastoid effusion. Orbits: Unremarkable as visualized. IMPRESSION: No evidence of acute intracranial pathology. Small left subdural fluid collection measuring 6.1 mm in maximal diameter without evidence of midline shift. Mild nonspecific white matter changes. Electronically signed by: Piper Josue MD 12/11/23 01:18 AM Medications Administered Current Inpatient Medications Acetaminophen (Acetaminophen 500 Mg Tab) 1,000 mg PO TID PRN PRN Reason: Pain or Fever Stop: 01/09/24 21:37 Last Admin: 12/11/23 16:00 Dose: 1,000 mg Apixaban (Apixaban 5 Mg Tablet) 5 mg PO BID LESVIA Stop: 01/10/24 08:59 Artificial Tears (Artificial Tears) 1 drops OP QID PRN PRN Reason: Dryness Stop: 01/10/24 03:49 Cyanocobalamin (Cyanocobalamin (B-12) 500 Mcg Tablet) 500 mcg PO QAM LESVIA Stop: 01/10/24 08:59 Last Admin: 12/11/23 08:30 Dose: 500 mcg Fluticasone Propionate (Fluticasone Propionate Na Spr 16 Gm Btl) 2 sprays NA QAM [facility] Stop: 01/10/24 08:59 Last Admin: 12/11/23 08:30 Dose: 2 sprays Folic Acid (Folic Acid 1 Mg Tab) 1 mg PO QAM [facility] Stop: 01/10/24 08:59 Last Admin: 12/11/23 08:30 Dose: 1 mg Lifitegrast (Lifitegrast 1 Each [place]pe[place]) 1 each OP BID [facility] Stop: 01/10/24 12:59 Last Admin: 12/11/23 13:31 Dose: 1 each Loratadine (Loratadine 10 Mg Tab) 10 mg PO DAILY PRN PRN Reason: allergies Stop: 01/10/24 03:50 Last Admin: 12/11/23 08:30 Dose: 10 mg Metoprolol Tartrate (Metoprolol Tartrate 50 Mg Tab) 50 mg PO BID [facility] Stop: 01/10/24 08:59 Last Admin: 12/11/23 08:30 Dose: 50 mg Miscellaneous Information (Pharmacist Discharge Med Rec Consult) 1 each N/A UD PRN PRN Reason: Consult Stop: 01/09/24 21:37 Mupirocin (Mupirocin 2% Oint 22 Gm Tube) 1 appln TOP TID [facility] Stop: 01/10/24 08:59 Last Admin: 12/11/23 14:01 Dose: Not Given Nitroglycerin (Nitroglycerin Sl 0.4 Mg/Tab Tab) 0.4 mg SL Q5M PRN PRN Reason: Chest Pain Stop: 01/09/24 21:37 Nystatin/Triamcinolone Acetonide (Nystatin/Triamcin Cr 15 Gm Tube) 1 appln EXT DAILY [facility] Stop: 01/10/24 08:59 Last Admin: 12/11/23 08:30 Dose: Not Given Polyethylene Glycol (Polyethylene (Miralax) 17 Gm Pack) 17 gm PO DAILY PRN PRN Reason: Constipation Stop: 01/09/24 21:37 Psyllium Hydrophilic Mucilloid (Psyllium Or Guar Gum Fiber 4gm Packet) 4 gm PO BID [facility] Stop: 01/10/24 08:59 Last Admin: 12/11/23 08:30 Dose: 4 gm Vitamin D (Cholecalciferol 10 Mcg (400 Units) Tab) 10 mcg PO [facility] Stop: 01/10/24 08:59 Last Admin: 12/11/23 08:30 Dose: 10 mcg
[2023-12-11] MEDS ORDERED: DEXTRAN HYPROMELLOSE OP SCH (21:00)
[2023-12-11] MEDS: APIXABAN 5 MG TABLET PO SCH (21:37)
[2023-12-12 07:17] LABS: Basophils # (auto) 0.02 K/uL (0.00-0.20); Basophils % (auto) 0.5 %; Eosinophils # (auto) 0.15 K/uL (0.00-0.50); Eosinophils % (auto) 3.6 %; Hematocrit (blood only) 33.9 % (42.0-52.0); Hemoglobin 11.9 g/dl (14.0-18.0); Immature Granulocytes # (auto) 0.01 K/uL (0.01-0.20); Immature Granulocytes % (auto) 0.2 %; Lymphocytes # (auto) 1.24 K/uL (1.20-3.40); Mean Corpuscular Hemoglobin 34.5 pg (25.0-34.0); Mean Corpuscular Hgb Conc 35.1 g/dL (32.0-36.0); Mean Corpuscular Volume 98.3 fL (80.0-100.0); Mean Platelet Volume 9.1 fL (9.4-12.4); Monocytes # (auto) 0.46 K/uL (0.11-0.59); Monocytes % (auto) 11.1 %; Neutrophils # (auto) 2.25 K/uL (1.40-6.50); Neutrophils % (auto) 54.6 %; Platelet Count 81 K/uL (130-400); RDW Coefficient of Variation 11.1 % (11.5-14.5); RDW Standard Deviation 40.2 fL (36.4-46.3); Red Blood Count 3.45 M/uL (4.70-6.10); White Blood Count 4.13 K/ul (4.8-10.8)
[2023-12-12 07:30] LABS: Creatinine Clr Calc Pharmacy 80.8 ml/min; Est GFR (African American) 100.3 ml/min; Est GFR (Non-African American) 86.5 ml/min; Potassium 4.4 mmol/L (3.5-5.1)
--- NOTE | 2023-12-12 08:40 | CT Scan Report ---
CT OF THE HEAD WITHOUT CONTRAST CLINICAL HISTORY: F/U fluid collection COMPARISON STUDY: Head CT May 09, [address] and MRI of the brain December 10, 2023. CT DOSE: 663.26 mGy.cm TECHNIQUE: Helical axial images of the head were obtained without IV contrast. Automated exposure con trol was utilized for the study. A dose lowering technique was utilized adhering to the principles o f ALARA. FINDINGS: Left-sided craniotomy is noted. Extraaxial high density within the operative bed is likely postsurgical. In addition, there is a hypodense subdural collection overlying the left parietal lobe and posterior left frontal lobe. This measures 5 mm in thickness. This corresponds to the subdural co llection on MRI of December 10, 2023. This is unchanged since that exam. No new sites of hemorrhage are present. Ventricular system is normal. Basal cisterns are patent. There is no significant mass effec t. There is no midline shift. There are no findings to suggest acute dural sinus thrombosis or acute territorial infarct. White matter hypodensity suggests small vessel disease. There are no acute vicky rial fracture. IMPRESSION: 1. No acute intracranial findings. 2. No change in a small hypodense left subdural hematoma overlying the left parietal convexity since MRI and head CT of December 10, 2023. 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 A follow-up head CT in one week to ensure continued stability is recommended. 3. Stable postoperative findings following left craniotomy. ACT 112: Negative or not required by law. Electronically signed by: Lew Xie M.D. 12/12/2023 8:38 AM
[2023-12-12 09:01] VITALS: RESP 16; TEMP 98.1
--- NOTE | 2023-12-12 10:55 | Pharmacy Report ---
- Date of Service December 12, 2023 - Pharmacy CVA/TIA Medication Review Medications to Prevent Stroke handout has been added to the patients discharge packet. Antiplatelet(s) * Antiplatelet therapy deferred due to intolerance (chronic thrombocytopenia) Cholesterol * High intensity statin recommended by neuro, hospitalist aware and beginning with atorvastatin 20 mg once daily on discharge. DVT Prophylaxis * Eliquis (apixaban) 5 mg BID Therapeutic Anticoagulation * Hx Afib/Aflutter noted, and patient is currently receiving Eliquis Type 2 Diabetes * Patient does not have T2DM (A1C: 5.4% 12/11/2023)
[2023-12-12 11:21] VITALS: BP 107/65; PULSE 57; O2SAT 96
[2023-12-12] MEDS ORDERED: STROKE PATIENT DISCHARGE STA (13:38)
--- NOTE | 2023-12-12 13:48 | Discharge Summary ---
Discharge Summary Date of Service December 12, 2023 Principal Dx & Hospital Course #1 = Principal Diagnosis (1) Stroke-like symptoms: In summation, 83-year-old male with past medical history significant for chronic hyponatremia, obstructive sleep apnea nontolerant of CPAP, mild ascending aortic dilatation, paroxysmal atrial fibrillation, diastolic dysfunction, aortic stenosis s/p TAVR, history of CAD, history of compression fracture of spine, osteoarthritis, history of chronic thrombocytopenia, history of recurrent DVT, history of BPH, history of panic attacks, history of fall in 2021 with left subdural hematoma s/p craniotomy is admitted with transient left eye vision loss. He does state that he gets visual ocular migraines and auras which are different. Strokelike symptoms TIA Transient left eye vision loss CT head, CTA head and neck unremarkable MRI- showing small left SDH 6.1mm , chronic per radiology. Full stroke workup with echo will check lipid profile and HbA1c levels Speech evaluation PT OT evaluation Telemetry Discussed case with neurology. They feel all of the MRI findings are chronic. They recommend restarting apixaban. Repeat CT scan stable. Chronic hyponatremia Sodium 129--> 130 today Sodium generally low 130s and high 120s Will follow labs History of DVT On Eliquis Restart Eliquis, okay per neurology History of thrombocytopenia Platelet 87-->81 Will follow labs Mild anemia and leukopenia Following with hematology Mild aortic root/ascending aortic dilatation Follow-up with cardio Chronic HFpEF Continue meds Pt compensated Monitor for volume overload Episode of paroxysmal atrial fibrillation during hospital stay in March 2022 On Eliquis Hypertension On metoprolol Will monitor BPs DVT prophylaxis Eliquis Disposition Telemetry Full code. Pt was ambulated. He had no further vision changes. His functional status was at baseline at discharge. He was discharged in stable condition. His spouse was present at discharge. Notes For Next Care Provider F/U with neurology Medication Changes From Visit Atovastatin 20 mg daily Admission HPI Per Admitting Provider 83-year-old male with past medical history significant for chronic hyponatremia, obstructive sleep apnea nontolerant of CPAP, mild ascending aortic dilatation, paroxysmal atrial fibrillation, diastolic dysfunction, aortic stenosis s/p TAVR, history of CAD, history of compression fracture of spine, osteoarthritis, history of chronic thrombocytopenia, history of recurrent DVT, history of BPH, history of panic attacks, history of fall in 2021 with subdural hematoma s/p craniotomy comes because of transient left eye vision loss. Patient states his left eye vision is not good as right eye and thought it was because of the dry eyes. But last Saturday he suddenly lost vision in the left eye but came back after 40 minutes. 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 Was evaluated at ophthalmology office and his exam was okay and was advised to come to the ER for stroke workup. Has mild headache since he came to the ER. Sometimes has some dizziness. He has allergies and chronic postnasal drip and cough from it. Somewhat hard of hearing. No difficulty swallowing. Appetite is okay. No chest pains. No shortness of breath. Currently no nausea. No abdominal pain. Somewhat constipated. Once in a while he gets hemorrhoidal bleed. Micturating okay, Sometimes he has mild urinary incontinence and uses briefs in the nighttime. Ambulates with a cane. Currently resting comfortably and hemodynamically stable. Past medical history. As mentioned above Past surgical history. Colonoscopy. Left heart catheterization. EGD. Eyelid lining surgery. Laparoscopic cholecystectomy. Left craniotomy with evacuation of subdural hematoma. Right inguinal hernia repair. Bilateral cataracts. Status post TAVR. Left reverse total shoulder arthroplasty. Bilateral shoulder arthroscopy. Social history. no smoking. No alcohol use. No drug use. Family history. Mother had diabetes. Dementia. Father had heart disorder. Brother had leukemia. Brother has Parkinson's. Admission Exam Per Admitting Provider Physical Exam Physical Exam: General- Not in distress Head- atraumatic Eyes- PERRL, EOMI, vision ok ENT- oropharynx clear Neck- supple, no JVD. Lungs- clear to auscultation no wheezing or crackles Heart- regular rate and rhythm; no murmur, no gallop Abdomen- normal bowel sounds, soft, nontender, no distension Extremities- no pretibial edema, Neuro- alert, oriented PERRL, EOMI; no facial palsy; no dysarthria; motor 5/5 bilaterally; no pronator drift, co ordination of movements normal, sensations and position sense intact Skin- warm & dry Discharge Exam General- Elderly male sitting in chair in NAD Head- atraumatic Eyes- PERRL, EOMI, anicteric ENT- oropharynx clear Neck- supple, no JVD, no adenopathy, no thyromegaly; carotids +2/2, no bruits appreciated Lungs- clear to auscultation and percussion Heart- regular rhythm; no murmur, no gallop, no rub appreciated Abdomen- normal bowel sounds, soft, nontender, no masses or hepatosplenomegaly Extremities- no pretibial edema, no calf tenderness; peripheral pulses intact Neuro- alert, oriented x 3; PERRL, EOMI; no facial palsy; no dysarthria; motor 5/5 bilaterally; no cogwheel rigidity; patellar DTRs +2/2; toes downgoing bila terally; finger to nose intact bilaterally. No field cuts Skin- warm & dry Updated Medication List Medication Instructions Recorded Confirmed Type cyanocobalamin (vitamin B-12) 500 500 mcg PO QAM 04/01/20 12/10/23 History mcg tablet acetaminophen 500 mg tablet 1,000 mg PO Q8 PRN mild/moderate 06/15/20 12/10/23 History pain cholecalciferol (vitamin D3) 10 400 unit PO QAM 06/15/20 12/10/23 History mcg (400 unit) tablet (Vitamin D3) fluticasone propionate 50 2 spray intranasal QAM 06/15/20 12/10/23 History mcg/actuation nasal spray,suspension (Flonase Allergy Relief) lifitegrast 5 % eye drops in a 1 drp OPB BID 06/15/20 12/10/23 History dropperette (Xiidra) psyllium 2 tsp PO BID 11/28/20 12/10/23 History amoxicillin 500 mg capsule 2,000 mg PO ONCE PRN 30-60 min 12/12/22 12/10/23 History prior to dentist apixaban 5 mg tablet (Eliquis) 5 mg PO BID 12/12/22 12/10/23 History folic acid 1 mg tablet 1 mg PO QAM 02/01/23 12/10/23 History metoprolol tartrate 50 mg tablet 50 mg PO BID 02/01/23 12/10/23 History dextran 70-hypromellose (PF) 0.1 1 drp ophthalmic (eye) HS 12/10/23 12/10/23 History %-0.3 % eye drops in a dropperette (Artificial Tears (PF)) loratadine 10 mg disintegrating 10 mg PO DAILY PRN allergies 12/10/23 12/10/23 History tablet (Alavert) mupirocin calcium 2 % topical cream 1 applic topical TID 12/10/23 12/10/23 History nystatin-triamcinolone 100,000 1 applic topical UD 12/10/23 12/10/23 History unit/g-0.1 % topical cream atorvastatin 20 mg tablet 20 mg PO PM #30 tabs 12/12/23 Rx Hospital Stay Data Consultations 12/10/23 19:09 ED Decision to Admit Stat 12/11/23 08:00 Consult Neurology Routine Diagnostic Imagining Performed 12/10/23 CT angio neck with con Stat 12/10/23 16:05 CT head/brain wo con Stat 12/10/23 17:22 CT angio head w con Stat 12/10/23 21:38 MR brain wo/w con Urgent 12/12/23 08:12 CT head/brain wo con Routine Pending Results Patient Have Any Pending Studies at Discharge: No Discharge Instructions Given to Patient (Per Discharging Provider) Follow up with Neurology Pt started on Atorvastatin 20 mg daily. Titrate as able Total Time Total Time Spent Total Time Spent (In Minutes): 45 minutes spent in documentation and discharge planning for this patient.
--- NOTE | 2023-12-13 13:23 | Pharmacy Report ---
Pharmacist Stroke Counseling - Date of Service December 13, 2023 - Scope: Pharmacy has been consulted to provide medication discharge counseling for this patient admitted with transient ischemic attack as per the Pharmacist Discharge Counseling for Stroke Patients Protocol. - Medications on Discharge: Home Medications Medication Instructions Recorded Confirmed cyanocobalamin (vitamin B-12) 500 500 mcg PO QAM 04/01/20 12/10/23 mcg tablet acetaminophen 500 mg tablet 1,000 mg PO Q8 PRN mild/moderate 06/15/20 12/10/23 pain cholecalciferol (vitamin D3) 10 400 unit PO QAM 06/15/20 12/10/23 mcg (400 unit) tablet (Vitamin D3) fluticasone propionate 50 2 spray intranasal QAM 06/15/20 12/10/23 mcg/actuation nasal spray,suspension (Flonase Allergy Relief) lifitegrast 5 % eye drops in a 1 drp OPB BID 06/15/20 12/10/23 dropperette (Xiidra) psyllium 2 tsp PO BID 11/28/20 12/10/23 amoxicillin 500 mg capsule 2,000 mg PO ONCE PRN 30-60 min 12/12/22 12/10/23 prior to dentist apixaban 5 mg tablet (Eliquis) 5 mg PO BID 12/12/22 12/10/23 folic acid 1 mg tablet 1 mg PO QAM 02/01/23 12/10/23 metoprolol tartrate 50 mg tablet 50 mg PO BID 02/01/23 12/10/23 dextran 70-hypromellose (PF) 0.1 1 drp ophthalmic (eye) HS 12/10/23 12/10/23 %-0.3 % eye drops in a dropperette (Artificial Tears (PF)) loratadine 10 mg disintegrating 10 mg PO DAILY PRN allergies 12/10/23 12/10/23 tablet (Alavert) mupirocin calcium 2 % topical cream 1 applic topical TID 12/10/23 12/10/23 nystatin-triamcinolone 100,000 1 applic topical UD 12/10/23 12/10/23 unit/g-0.1 % topical cream New Rx's Medication Instructions Recorded atorvastatin 20 mg tablet 20 mg PO PM #30 tabs 12/12/23 - Action: The above medications, specifically ones for stroke treatment/prophylaxis, have been reviewed in detail with the patient's . This includes indication, common adverse reactions, drug interactions, and medication administration. Medication counseling has been employed using the teach-back method to ensure understanding. - Outcome: The patient and patient's have demonstrated understanding of the medica tions. They were very grateful for my call. They did picker and packer the Lipitor and started it last night. Thank you for allowing pharmacy to be involved in the care of this patient. Please call [phone] with any additional questions
== END 2023-12-12 15:00 | disposition home or self-care (01) | DRG 69 ==
LOC: ED 15:58 → SUATTDRO 20:19 → 4W 20:19
DX: I77.819 Aortic ectasia, unspecified site; I50.32 Chronic diastolic (congestive) heart failure; N40.0 Benign prostatic hyperplasia without lower urinary tract symptoms; Z79.899 Other long term (current) drug therapy; I44.0 Atrioventricular block, first degree; Z79.01 Long term (current) use of anticoagulants; I62.03 Nontraumatic chronic subdural hemorrhage; G45.9 Transient cerebral ischemic attack, unspecified; I25.10 Atherosclerotic heart disease of native co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 angina pectoris; Z88.5 Allergy status to narcotic agent; Z82.49 Family history of ischemic heart disease and other diseases of the circulatory system; Z96.612 Presence of left artificial shoulder joint; D69.6 Thrombocytopenia, unspecified; H53.122 Transient visual loss, left eye; R29.700 NIHSS score 0; I48.0 Paroxysmal atrial fibrillation; G47.33 Obstructive sleep apnea (adult) (pediatric); D72.819 Decreased white blood cell count, unspecified; D64.9 Anemia, unspecified; Z86.718 Personal history of other venous thrombosis and embolism; Z95.2 Presence of prosthetic heart valve; J30.9 Allergic rhinitis, unspecified; M19.90 Unspecified osteoarthritis, unspecified site; Z88.8 Allergy status to other drugs, medicaments and biological substances; Z83.3 Family history of diabetes mellitus; Z88.6 Allergy status to analgesic agent; E87.1 Hypo-osmolality and hyponatremia; Z87.820 Personal history of traumatic brain injury; I11.0 Hypertensive heart disease with heart failure

== ENCOUNTER 2023-12-24 15:51 | Inpatient (IN) ==
[2023-12-24 16:56] LABS: Appearance Urine Clear (Clear); Bilirubin Urine Negative (Negative); Blood Urine Negative (Negative); Color Urine Yellow; Glucose Urine UA Negative (Negative); Ketones Urine Negative (Negative); Leukocyte Esterase Urine Negative (Negative); Nitrite Urine Negative (Negative); Protein Urine Negative (Negative); Specific Gravity Urine 1.013 (1.000-1.030); Urobilinogen Urine Negative (Negative); pH Urine 5.5 (4.5-7.5)
[2023-12-24 16:57] LABS: Hematocrit (blood only) 24.3 % (42.0-52.0); Mean Corpuscular Hgb Conc 32.9 g/dL (32.0-36.0); Mean Corpuscular Volume 103.4 fL (80.0-100.0); Mean Platelet Volume 9.5 fL (9.4-12.4); Platelet Count 88 K/uL (130-400); RDW Coefficient of Variation 11.9 % (11.5-14.5); RDW Standard Deviation 44.5 fL (36.4-46.3); Red Blood Count 2.35 M/uL (4.70-6.10); White Blood Count 5.32 K/ul (4.8-10.8)
[2023-12-24 17:12] LABS: Albumin Globulin Ratio 1.8 (0.9-2); BUN Creatinine Ratio 41.4 (10-20); Bilirubin,Total 0.6 mg/dl (0.2-1.0); Calcium 8.9 mg/dl (8.6-10.3); Creatinine Clr Calc Pharmacy 68.8 ml/min; Est GFR (African American) 93.8 ml/min; Est GFR (Non-African American) 80.9 ml/min; Globulin 2.2 gm/dl (2.5-4.0); Potassium 4.2 mmol/L (3.5-5.1); Total Protein 6.2 gm/dl (6.0-8.3)
[2023-12-24 17:17] LABS: Troponin I High Sensitivity 13.9 pg/ml (0-20)
[2023-12-24 17:27] LABS: INR 1.1 (0.9-1.1); Partial Thromboplastin Time 26 Seconds (21-31); Prothrombin Time 11.8 Seconds (9.0-12.0)
[2023-12-24] MEDS ORDERED: SODIUM CHLORIDE 0.9% 250 ML IV PRN ×2 (17:36→17:43)
--- NOTE | 2023-12-24 17:40 | Emergency Department Note ---
Impression & Plan Acute upper GI bleed, Symptomatic anemia ED Provider Note NAME: ESPERANZA VILLALTA AGE: 83 SEX: M : 1940 ARRIVES VIA: Walk-In INFORMANT: Patient ED PROVIDER(S): Hasmukh Dupree DO CHIEF COMPLAINT: Black stools HPI: Patient is an 83-year-old male who presents to the ER with a past medical history of stroke, DVT chronically on Eliquis who presents ER for black stools which have been present since Saturday. Saw the PCP and had blood work done and was referred in for a GI bleed. He did test positive for blood in his stools at the PCPs office. He denies any headache or change in vision. No chest pain but admits to feeling very fatigued and weak and rundown.. No nausea, vomiting or diarrhea. No dysuria, urgency or frequency. He denies any belly pain but admits to upset stomach. ADDITIONAL HISTORY OBTAINED: Per HPI Chronic Medical/Social Conditions Affecting Care: Per HPI PAST MEDICAL HISTORY:See Below PAST SURGICAL HISTORY:See Below FAMILY HISTORY:See Below SOCIAL HISTORY:See Below HOME MEDICATIONS:See Below ALLERGIES:See Below VITALS:See Below PHYSICAL EXAMINATION: GENERAL: Sitting up in bed, alert, pale EYE EXAM: normal conjunctiva. OROPHARYNX: mucous membranes are moist LUNGS: Clear to auscultation. Normal chest wall mechanics HEART: no murmurs, S1 normal and S2 normal ABDOMEN: abdomen soft, non-tender, normo-active bowel sounds, no masses, no rebound or guarding. UPPER EXTREMITIES: upper extremities are grossly normal. LOWER EXTREMITIES: No pitting edema. NEURO EXAM: Normal sensorium, cranial nerves II-XII grossly intact, normal speech, no gross weakness of arms, no gross weakness of legs. MEDICAL DECISION MAKING: Patient is an 83-year-old male who presents the ER for black stools which started this past Saturday. He does take a blood thinner. He did not take it this morning as instructed by his PCP and was referred in per the who provided additional history. Labs show no significant leukocytosis. Anemia at 8 down from 11. Platelets were at 88. BMP with an elevated BUN suggestive of upper GI bleed which consistent with the black tarry stools she has had. Troponin was negative. UA was clean. He was typed and crossed for 2 units and there are help. He was given a Protonix drip and bolus. Currently hemodynamically stable. Discussed case with the hospitalist for further evaluation management treatment. They recommended transfusing 1 unit now. 1 unit of PRBCs was ordered and given while in the ER. I did consent the patient at bedside with the . Consults/Care Managements Discussions: Per MDM Triage Nursing notes reviewed. Limited review of prior medical records performed Vital Signs: reviewed and remarkable for no significant abnormalities Differential diagnosis: Differential diagnosis includes etiologies such as diverticulitis, diverticulosis, AVM, coagulopathy, colitis, inflammatory bowel disease, malignancy, Julia-Pride tear, esophagitis, peptic ulcer disease, variceal bleed, gastritis, epistaxis, fissure, hemorrhoids, as well as others were entertained. ER treatment provided: See below Diagnostics interpreted by me include EKG and cardiac monitoring as listed below: -Cardiac Monitoring: An order was placed for continuous cardiac monitoring. The monitor shows a rate of 70 with sinus rhythm. -ECG: Sinus rhythm rate 68 Normal axis No PVCs QTc 401 -Laboratory studies:Interpreted by me as stated above in MDM and shown below. Imaging studies: Xrays: As interpreted by me:none CTs show: none Procedures:none Critical Care: I have personally spent 31 minutes of critical care time in the direct management of this patient. This includes bedside care, interpretation of diagnostic studies, and testing, discussion with consultants, patient, and family members, and other required patient management activities. This 31 minutes is in excess of all separately billable procedures. Past Med/Surg History Problem List Acute gastrointestinal bleeding Symptomatic anemia (Acute) Acute upper GI bleed (Acute) Stroke-like symptoms (Acute) Wears hearing aid in both ears Phonak Audeo P50R disp 02/01/22 Status post reverse total replacement of left shoulder (~02/2023) DVT (deep venous thrombosis) (Chronic) Thrombocytopenia (Chronic) Diastolic CHF (Chronic) Arthritis Bronchitis Nocturia Duodenal mass reason for upcoming colonoscopy & EGD Abdominal pain r/t duodenal mass? 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 Roger History of duodenal ulcer MAY 2020 - RESOLVED History of gastritis Lumbar spinal stenosis Pt unable to stand > 15 min in same space per PAT RN call Injury of right hip multiple times -- treated with physical therapy Deep vein thrombosis x2 both DVT Right leg s/p shoulder surgery and the other after extended driving. Eliquis. (2004 & 2006) SCC (squamous cell carcinoma) s/p excision BCC (basal cell carcinoma) s/p excision Sleep apnea not currently on treatment Thrombocytopenia per [facility] heme onc, usual range 100,000-110,000-pre-op 01/2023: 87,000 On anticoagulant therapy Anemia monitoring per [facility] heme/onc Spinal fracture 2009 (L5 & L10 & L12) s/p fall Gout last flare yrs ago PSVT (paroxysmal supraventricular tachycardia) ~0223-5260, treated in [facility]. no problems since 2012. Surgical History History of cardiac cath Feb 2022 > [facility] > no stents Hx of hernia repair Right Open Inguinal Hernia Repair with [facility] H/O aortic valve repair August 2022 > [facility] Brain bleed subdural hematoma-hospitalized at [facility] Mar 2022 > due to a fall > surgical repair > was in ICU 11 days > Coumadin had been DC'ed was off thinner for a while, now on Eliquis History of esophagogastroduodenoscopy (EGD) History of cataract surgery bilateral History of cholecystectomy History of colonoscopy Status post Mohs surgery HX History of surgical removal of skin lesion H/O shoulder surgery bilateral Family History Father Heart disease Brother Heart disease Cancer Leukemia Social History Smoking Status: Never smoker Second Hand Exposure: No; Do You Dip or Chew Tobacco: No; Hx Alcohol Use: No Hx Substance Use: No Preferred Language: [place] Communication Ability: Effective Under Seal Operator Required: No Beliefs That Will Affect Care: None marital status: Current Living Situation: Spouse current occupational status: retired Feels Safe at Home: Yes Diet: regular Assistive Devices: None Allergies Allergies Allergy/AdvReac Type Severity Reaction Status Date / Time aspirin AdvReac Unknown CANNOT Verified 08/14/23 15:48 TAKE DUE TO GASTRITIS celecoxib AdvReac Unknown CUSTODIAL Verified 08/14/23 15:48 USE CAUSED SEVERE HEARTBURN codeine AdvReac Unknown GENERAL Verified 08/14/23 15:48 ILL FEELING enoxaparin [From Lovenox] AdvReac Unknown thrombocyto Verified 08/14/23 15:48 penia finasteride AdvReac Unknown CAUSED Verified 08/14/23 15:48 GASTRITIS garlic AdvReac Unknown stomach Verified 08/14/23 15:48 cramp, diarrhea heparin AdvReac Unknown "not to be Verified 08/14/23 15:48 used with Eliquis" per pt hydrocodone AdvReac Unknown vomiting Verified 08/14/23 15:48 hydromorphone [From Dilaudid] AdvReac Unknown constipatio Verified 08/14/23 15:48 n ibuprofen AdvReac Unknown CANNOT Verified 08/14/23 15:48 TAKE DUE TO GASTRITIS lidocaine AdvReac Unknown lidocaine Verified 08/14/23 15:48 patch --> sinus infection loratadine AdvReac Unknown RACING Verified 08/14/23 15:48 HEART onion AdvReac Unknown upset Verified 08/14/23 15:48 stomach/diarrhea oxycodone AdvReac Unknown "KNOCKS ME Verified 08/14/23 15:48 OUT" pseudoephedrine AdvReac Unknown RACING Verified 08/14/23 15:48 HEART rofecoxib AdvReac Unknown GENERAL Verified 08/14/23 15:48 ILL FEELING valdecoxib AdvReac Unknown GENERAL Verified 08/14/23 15:48 ILL FEELING Home Meds Home Medications Medication Instructions Recorded Confirmed cyanocobalamin (vitamin B-12) 500 500 mcg PO QAM 04/01/20 12/24/23 mcg tablet acetaminophen 500 mg tablet 1,000 mg PO Q8 PRN mild/moderate 06/15/20 12/24/23 pain cholecalciferol (vitamin D3) 10 400 unit PO QAM 06/15/20 12/24/23 mcg (400 unit) tablet (Vitamin D3) fluticasone propionate 50 2 spray intranasal QAM 06/15/20 12/24/23 mcg/actuation nasal spray,suspension (Flonase Allergy Relief) lifitegrast 5 % eye drops in a 1 drp OPB BID 06/15/20 12/24/23 dropperette (Xiidra) psyllium 2 tsp PO BID 11/28/20 12/24/23 apixaban 5 mg tablet (Eliquis) 5 mg PO BID 12/12/22 12/24/23 folic acid 1 mg tablet 1 mg PO QAM 02/01/23 12/24/23 metoprolol tartrate 50 mg tablet 50 mg PO BID 02/01/23 12/24/23 dextran 70-hypromellose (PF) 0.1 1 drp ophthalmic (eye) HS 12/10/23 12/24/23 %-0.3 % eye drops in a dropperette (Artificial Tears (PF)) loratadine 10 mg disintegrating 10 mg PO DAILY PRN allergies 12/10/23 12/24/23 tablet (Alavert) Previous Rx's Medication Instructions Recorded atorvastatin 20 mg tablet 20 mg PO PM #30 tabs 12/12/23 Results & Data (ED) Vital Signs Vital Signs - 24 hr 12/24/23 15:58 12/24/23 16:48 12/24/23 17:37 Temperature 36.5 C Temperature Source Temporal Artery Scan Pulse Rate - Lying Pulse Rate - Sitting Pulse Rate - Standing Pulse Rate 72 72 Pulse Rate [Left Apical] 67 Pulse Rhythm Regular Respiratory Rate 20 20 Respiratory Effort / Characteristics Non-Labored Spontaneous Non-Labored Spontaneous Respiratory Depth Normal Normal Respiratory Pattern Regular Blood Pressure - Lying Blood Pressure - Sitting Blood Pressure- Standing Blood Pressure 123/63 Blood Pressure [Right Arm] 121/73 Blood Pressure Mean 83 Blood Pressure Mean [Right Arm] 89 Pulse Oximetry 97 100 Oxygen Delivery Method Room Air Room Air Sepsis Recent Fever Within 48 Hours No Sepsis New/Unexplained Change in Mental Status No Sepsis Action Taken by Nursing No Action Required 12/24/23 17:38 Temperature Temperature Source Pulse Rate - Lying 67 Pulse Rate - Sitting 77 Pulse Rate - Standing 80 Pulse Rate Pulse Rate [Left Apical] Pulse Rhythm Respiratory Rate Respiratory Effort / Characteristics Respiratory Depth Respiratory Pattern Blood Pressure - Lying 121/73 Blood Pressure - Sitting 109/69 Blood Pressure- Standing 123/62 Blood Pressure Blood Pressure [Right Arm] Blood Pressure Mean Blood Pressure Mean [Right Arm] Pulse Oximetry Oxygen Delivery Method Sepsis Recent Fever Within 48 Hours Sepsis New/Unexplained Change in Mental Status Sepsis Action Taken by Nursing Laboratory Data 12/24/23 16:08 12/24/23 16:08 Lab Results 12/24/23 12/24/23 12/24/23 Range/Units 16:08 16:14 16:35 WBC 5.32 (4.8-10.8) K/ul RBC 2.35 L (4.70-6.10) M/uL Hgb 8.0 L (14.0-18.0) g/dl Hct 24.3 L (42.0-52.0) % MCV 103.4 H (80.0-100.0) fL MCH 34.0 (25.0-34.0) pg MCHC 32.9 (32.0-36.0) g/dL RDW Std Deviation 44.5 (36.4-46.3) fL RDW Coeff of Jaleel 11.9 (11.5-14.5) % Plt Count 88 L (130-400) K/uL MPV 9.5 (9.4-12.4) fL PT 11.8 (9.0-12.0) Seconds INR 1.1 (0.9-1.1) APTT 26 (21-31) Seconds PTT Ratio 1.0 Sodium 131 L (136-145) mmol/L Potassium 4.2 (3.5-5.1) mmol/L Chloride 96 L (98-107) mmol/L Carbon Dioxide 32 (21-32) mmol/L Anion Gap 3 (3-11) BUN 36 H (6-23) mg/dl Creatinine 0.87 (0.6-1.4) mg/dl Est Cr Clr Drug Dosing 68.8 ml/min Est GFR ( Amer) 93.8 ml/min Est GFR (Non-Af Amer) 80.9 ml/min BUN/Creatinine Ratio 41.4 H (10-20) Glucose 112 H (70-99(Fasting)) mg/dl Calcium 8.9 (8.6-10.3) mg/dl Total Bilirubin 0.6 (0.2-1.0) mg/dl AST 12 L (13-39) U/L ALT 8 (7-52) U/L Alkaline Phosphatase 50 (34-104) U/L Troponin I High Sens 13.9 (0-20) pg/ml Total Protein 6.2 (6.0-8.3) gm/dl Albumin 4.0 (3.4-5.0) gm/dl Globulin 2.2 L (2.5-4.0) gm/dl Albumin/Globulin Ratio 1.8 (0.9-2) Urine Color Yellow Urine Appearance Clear (Clear) Urine pH 5.5 (4.5-7.5) Ur Specific [place] 1.013 (1.000-1.030) Urine Protein Negative (Negative) Urine Glucose (UA) Negative (Negative) Urine Ketones Negative (Negative) Urine Blood Negative (Negative) Urine Nitrite Negative (Negative) Urine Bilirubin Negative (Negative) Urine Urobilinogen Negative (Negative) Ur Leukocyte Esterase Negative (Negative) Blood Type O Positive Antibody Screen NEGATIVE Crossmatch See Detail Administered Medications Pantoprazole Sodium 40 mg/ (Dextrose) 100 mls @ 20 mls/hr IV Q5H LESVIA Stop: 01/23/24 17:59 Last Admin: 12/24/23 18:44 Dose: 8 mg/hr, 20 mls/hr Documented By: JOSSELYN Discontinued Medications Pantoprazole Sodium 80 mg/ (Dextrose) 120 mls @ 480 mls/hr IV NOW ONE Stop: 12/24/23 17:54 Last Admin: 12/24/23 18:19 Dose: 480 mls/hr Documented By: JOSSELYN Sodium Chloride (Nss) 500 mls @ 999 mls/hr IV .Q31M ONE Stop: 12/24/23 18:10 Last Admin: 12/24/23 18:25 Dose: 999 mls/hr Documented By: JOSSELYN Pantoprazole Sodium (Pantoprazole Bolus/Drip) 1 each IV NOW STA Stop: 12/24/23 17:41 Last Admin: 12/24/23 18:19 Dose: Not Given Documented By: JOSSELYN Discharge Plan Visit Data Chief Complaint: GI Bleed Stated Complaint: INTERNAL BLEEDING, DOC REF ED Provider: Hasmukh Dupree Discharge Problem: Acute upper GI bleed, Symptomatic anemia Forms Stand Alone Forms: [facility] Prescriptions Prescriptions: No Action cyanocobalamin (vitamin B-12) 500 mcg tablet 500 mcg PO QAM psyllium Powder 2 tsp PO BID Rx Instructions: mix into at least 8 oz of water or juice before administering Eliquis 5 mg tablet 5 mg PO BID acetaminophen 500 mg Tablet 1,000 mg PO Q8 PRN (Reason: mild/moderate pain) fluticasone propionate [Flonase Allergy Relief] 50 mcg/actuation [place],Suspension 2 spray INTRANASAL QAM cholecalciferol (vitamin D3) [Vitamin D3] 10 mcg (400 unit) Tablet 400 unit PO QAM Xiidra 5 % Dropperette 1 drp OPB BID metoprolol tartrate 50 mg Tablet 50 mg PO BID folic acid 1 mg Tablet 1 mg PO QAM Artificial Tears (PF) 0.1-0.3 % Dropperette 1 drp OPHTHALMIC (EYE) HS loratadine [Alavert] 10 mg Tablet,Disintegrating 10 mg PO DAILY PRN (Reason: allergies) atorvastatin 20 mg tablet 20 mg PO PM Qty: 30 1RF Referrals Referrals: Jose Angel Weeks DO [Primary Care Provider] -
--- NOTE | 2023-12-24 17:43 | History & Physical Report ---
Date of Service December 24, 2023 Assessment & Plan (1) Acute gastrointestinal bleeding: Plan Alec Peterson is an 83 y/o M with PMHx of chronic hyponatremia, REENA nontolerant of CPAP, mild ascending aortic dilatation, history of recurrent DVT, paroxysmal atrial fibrillation [on Eliquis], diastolic dysfunction, aortic stenosis s/p TAVR, history of CAD, history of compression fracture of spine, osteoarthritis, history of chronic thrombocytopenia, BPH, history of panic attacks, history of fall with subdural hematoma s/p craniotomy [March 2022] and other problems listed below who presented to the ED for evaluation secondary to black stools since Saturday. Was sent here by his PCP after having a positive fecal occult blood test in the outpatient setting. Last dose of Eliquis was this morning. Acute GI Bleed Hgb 8 on presentation. Hgb was 11.9 on 12/11. Sodium 131. Lab work otherwise unremarkable. UA negative. Set to receive 1 unit PRBCs. Continue Protonix drip. NPO for now. GI consult pending. Monitor H/H Q6H. Follow AM labs. Paroxysmal Afib, H/O Recurrent DVT: Hold Eliquis for now given acute GI bleeding. HTN: BP stable, continue metoprolol. CAD: Chronic, stable. Continue atorvastatin. DVT Prophylaxis: Chemoprophylaxis currently contraindicated given acute GI bleeding. Code Status: DNR/DNI - As per discussion with patient at bedside. PCP: Jose Angel Weeks DO Disposition: Admit to PCU/Telemetry Patient seen in collaboration with Dr. Martins. Please see addendum. I spent a total of 45 minutes coordinating, documenting, and providing care for this patient excluding time spent in the performance of separately billed services. This included personally reviewing all current laboratories and imaging studies, medical reconciliation, outpatient chart review and discussion with specialists. This chart was completed in part utilizing Speech Voice Recognition Software. Grammatical errors, random word insertions, pronoun errors, and incomplete sentences are an occasional consequence of this system due to software limitations, ambient noise, and hardware issues. Any formal questions or concerns about the content, text, or information contained within the body of this dictation should be directly addressed to the provider for clarification. History of Present Illness Chief Complaint: Black Stools Primary Care Provider: Jose Angel Weeks DO Alec Peterson is an 83 y/o M with PMHx of chronic hyponatremia, REENA nontolerant of CPAP, mild ascending aortic dilatation, history of recurrent DVT, paroxysmal atrial fibrillation [on Eliquis], diastolic dysfunction, aortic stenosis s/p TAVR, history of CAD, history of compression fracture of spine, osteoarthritis, history of chronic thrombocytopenia, BPH, history of panic attacks, history of fall with subdural hematoma s/p craniotomy [March 2022] and other problems listed below who presented to the ED for evaluation secondary to black stools since Saturday. History obtained from patient, at bedside and associated c ayala review. Noticed first episode of black stools on Saturday. He describes his stools as "oily" in appearance. Last bowel movement was on Saturday. No diarrhea. Was sent here by his PCP after having a positive fecal occult blood test in the outpatient setting. No fevers. Reports a chronic dry cough. Has been experiencing a headache. Did not take any OTC pain medication at home for this headache. He did feel a little lightheadedness when he got up to use the bathroom in the ED. No tobacco use. No alcohol use or recreational drug use. His last dose of Eliquis was this morning. Allergies Allergy/AdvReac Type Severity Reaction Status Date / Time aspirin AdvReac Unknown CANNOT Verified 08/14/23 15:48 TAKE DUE TO GASTRITIS celecoxib AdvReac Unknown ACADEMIC INTERVENTIONIST Verified 08/14/23 15:48 USE CAUSED SEVERE HEARTBURN codeine AdvReac Unknown GENERAL Verified 08/14/23 15:48 ILL FEELING enoxaparin [From Lovenox] AdvReac Unknown thrombocyto Verified 08/14/23 15:48 penia finasteride AdvReac Unknown CAUSED Verified 08/14/23 15:48 GASTRITIS garlic AdvReac Unknown stomach Verified 08/14/23 15:48 cramp, diarrhea heparin AdvReac Unknown "not to be Verified 08/14/23 15:48 used with Eliquis" per pt hydrocodone AdvReac Unknown vomiting Verified 08/14/23 15:48 hydromorphone [From Dilaudid] AdvReac Unknown constipatio Verified 08/14/23 15:48 n ibuprofen AdvReac Unknown CANNOT Verified 08/14/23 15:48 TAKE DUE TO GASTRITIS lidocaine AdvReac Unknown lidocaine Verified 04/17/24 15:48 patch --> sinus infection loratadine AdvReac Unknown RACING Verified 08/14/23 15:48 HEART onion AdvReac Unknown upset Verified 08/14/23 15:48 stomach/diarrhea oxycodone AdvReac Unknown "KNOCKS ME Verified 08/14/23 15:48 OUT" pseudoephedrine AdvReac Unknown RACING Verified 08/14/23 15:48 HEART rofecoxib AdvReac Unknown GENERAL Verified 08/14/23 15:48 ILL FEELING valdecoxib AdvReac Unknown GENERAL Verified 08/14/23 15:48 ILL FEELING Home Medications Medication Instructions Recorded Confirmed Type cyanocobalamin (vitamin B-12) 500 500 mcg PO QAM 04/01/20 12/24/23 History mcg tablet acetaminophen 500 mg tablet 1,000 mg PO Q8 PRN mild/moderate 06/15/20 12/24/23 History pain cholecalciferol (vitamin D3) 10 400 unit PO QAM 06/15/20 12/24/23 History mcg (400 unit) tablet (Vitamin D3) fluticasone propionate 50 2 spray intranasal QAM 06/15/20 12/24/23 History mcg/actuation nasal spray,suspension (Flonase Allergy Relief) lifitegrast 5 % eye drops in a 1 drp OPB BID 06/15/20 12/24/23 History dropperette (Xiidra) psyllium 2 tsp PO BID 11/28/20 12/24/23 History apixaban 5 mg tablet (Eliquis) 5 mg PO BID 12/12/22 12/24/23 History folic acid 1 mg tablet 1 mg PO QAM 02/01/23 12/24/23 History metoprolol tartrate 50 mg tablet 50 mg PO BID 02/01/23 12/24/23 History dextran 70-hypromellose (PF) 0.1 1 drp ophthalmic (eye) HS 12/10/23 12/24/23 History %-0.3 % eye drops in a dropperette (Artificial Tears (PF)) loratadine 10 mg disintegrating 10 mg PO DAILY PRN allergies 12/10/23 12/24/23 History tablet (Alavert) atorvastatin 20 mg tablet 20 mg PO PM #30 tabs 12/12/23 12/24/23 Rx Past Med/Surg History Problem List Acute gastrointestinal bleeding Symptomatic anemia (Acute) Acute upper GI bleed (Acute) Stroke-like symptoms (Acute) Wears hearing aid in both ears Zabrina Prince P50R disp 02/01/22 Status post reverse total replacement of left shoulder (~02/2023) DVT (deep venous thrombosis) (Chronic) Thrombocytopenia (Chronic) Diastolic CHF (Chronic) Arthritis Bronchitis Nocturia Duodenal mass reason for upcoming colonoscopy & EGD Abdominal pain r/t duodenal mass? reason for upcoming colonoscopy & EGD Encounter for pre-operative examination Colon polyp Abnormal CT of the abdomen Benign localized prostatic hyperplasia with lower urinary tract symptoms (LUTS) Hip pain, right Leg length discrepancy Right inguinal hernia Sensorineural hearing loss (SNHL) of both ears Auditory hallucination Medical History Paroxysmal atrial fibrillation on Eliquis Subdural hematoma 03/2022, follows with [facility] neuro Hearing loss s/p hearing aids bilat History of blood transfusion alejandra-operatively 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 Roger History of duodenal ulcer MAY 2020 - RESOLVED History of gastritis Lumbar spinal stenosis Pt unable to stand > 15 min in same space per PAT RN call Injury of right hip multiple times -- treated with physical therapy Deep vein thrombosis x2 both DVT Right leg s/p shoulder surgery and the other after extended driving. Eliquis. (2004 & 2006) SCC (squamous cell carcinoma) s/p excision BCC (basal cell carcinoma) s/p excision Sleep apnea not currently on treatment Thrombocytopenia per [facility] heme onc, usual range 100,000-110,000-pre-op 01/2023: 87,000 On anticoagulant therapy Anemia monitoring per [facility] heme/onc Spinal fracture 2009 (L5 & L10 & L12) s/p fall Gout last flare yrs ago PSVT (paroxysmal supraventricular tachycardia) ~9530-0103, treated in [facility] [place]. no problems since 2012. Surgical History History of cardiac cath Feb 2022 > [facility] > no stents Hx of hernia repair Right Open Inguinal Hernia Repair with [facility] H/O aortic valve repair August 2022 > [facility] Brain bleed subdural hematoma-hospitalized at [facility] Mar 2022 > due to a fall > surgical repair > was in ICU 11 days > Coumadin had been DC'ed was off thinner for a while, now on Eliquis History of esophagogastroduodenoscopy (EGD) History of cataract surgery bilateral History of cholecystectomy History of colonoscopy Status post Mohs surgery HX History of surgical removal of skin lesion H/O shoulder surgery bilateral Family History Father Heart disease Brother Heart disease Cancer Leukemia Social History Smoking Status: Never smoker Second Hand Exposure: No; Do You Dip or Chew Tobacco: No; Hx Alcohol Use: No Hx Substance Use: No Preferred Language: Nigerien Communication Ability: Effective Metal Organ Pipe Maker Required: No Beliefs That Will Affect Care: None marital status: Current Living Situation: Spouse current occupational status: retired Feels Safe at Home: Yes Diet: regular Assistive Devices: None Review of Systems Review of Systems: At least ten systems reviewed and negative, except as noted in the HPI. Physical Exam Physical Exam: Please refer to Dr. Martins's addendum for physical examination findings. Results & Data Results & Data Vital Signs (Past 12 Hours) Vital Signs Temp Pulse Pulse Resp BP BP Pulse Ox 12/24/23 17:37 67 20 121/73 100 12/24/23 16:48 72 12/24/23 15:58 36.5 C 72 20 123/63 97 O2 Del Method 12/24/23 17:37 Room Air 12/24/23 16:48 12/24/23 15:58 Room Air Laboratory Results Short CBC 12/24/23 Range/Units 16:08 WBC 5.32 (4.8-10.8) K/ul Hgb 8.0 L (14.0-18.0) g/dl Hct 24.3 L (42.0-52.0) % Plt Count 88 L (130-400) K/uL BMP 12/24/23 16:08 Sodium 131 L Potassium 4.2 Chloride 96 L Carbon Dioxide 32 BUN 36 H Creatinine 0.87 Glucose 112 H Calcium 8.9 Liver Function 12/24/23 Range/Units 16:08 Total Bilirubin 0.6 (0.2-1.0) mg/dl AST 12 L (13-39) U/L ALT 8 (7-52) U/L Alkaline Phosphatase 50 (34-104) U/L Albumin 4.0 (3.4-5.0) gm/dl Urine 12/24/23 Range/Units 16:35 Urine Color Yellow Urine Appearance Clear (Clear) Urine pH 5.5 (4.5-7.5) Ur Specific [place] 1.013 (1.000-1.030) Urine Protein Negative (Negative) Urine Glucose (UA) Negative (Negative) Code Status & VTE Plan Code Status FULL CODE Supervising Physician Co-Signing Physician Notes 83-year-old male with PMH of chronic hyponatremia, REENA not tolerant of CPAP, m ild ascending aortic dilatation, recurrent DVT, paroxysmal A-fib on Eliquis, diastolic dysfunction, aortic stenosis status post TAVR, CAD, compression fracture of spine, osteoarthritis, chronic thrombocytopenia, BPH, panic attacks, fall with subdural hematoma status post craniectomy presented to the ED for evaluation of black stool since Saturday (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 Patient reports having large amount of soft stool x black since last 2 days. Patient's baseline hemoglobin as an outpatient is about 12, hemoglobin today is 8.0. Patient denies other ROS including fever/sore throat/cough/chest pain. Patient does have chronic mild on and off headache, patient reports some lightheadedness today. Patient denies palpitation. Patient denies use of NSAIDs including Motrin and Aleve. Patient uses only Tylenol. Patient denies history of GI bleed. Patient denies smoking/alcohol/recreational drug use. DNR/DNI Labs reviewed: Hemoglobin 8.0, baseline around 12. Sodium 131 closer to his baseline. Trope WNL. Active problems: Likely UGI bleed And acute blood loss anemia: Patient comes in with black stool, hemoglobin drop noted. Last Eliquis dose today morning. Hold blood thinners, transfuse 1 unit prbc, H&H every 6 hours, PPI drip, n.p.o. except meds and sips, GI consult, IV fluid. Likely peptic ulcer disease: epigastric tender noted on exam. c/w PPI. on exam: GENERAL: Alert and oriented x3. NAD, on RA. HEENT: No pallor, no icterus. Pupils equal, round and reactive to light. Oral mucosa moist. NECK: No JVD, no neck masses. HEART: S1 and S2 heard. Regular rate and rhythm. No murmur, no gallop. RESPIRATORY SYSTEM: Normal AP diameter. No accessory muscle use. No wheezing, no crackles. ABDOMEN: Soft, bowel sounds present, epigastric tender noted, no distention. CENTRAL NERVOUS SYSTEM: No facial droop. Speech is clear. Obeys simple commands. Moves extremities. EXTREMITIES: No edema, no erythema seen. I have seen and examined the patient and have discussed the case with the provider above. I agree with the assessment and plan as stated. Time spent: 30 minutes.
[2023-12-24] MEDS: PANTOPRAZOLE BOLUS/DRIP IV STA (18:19)
[2023-12-24] MEDS: PANTOprazole 80 MG in DEXTROSE 5% 100 ML IV ONE (18:19)
[2023-12-24] MEDS: SODIUM CHLORIDE 0.9% 500 ML IV ONE (18:25)
[2023-12-24] MEDS: PANTOprazole 40 MG in DEXTROSE 5% MINI-B 100 ML IV SCH (18:44)
[2023-12-24] MEDS: SODIUM CHLORIDE 0.9% 1,000 ML IV SCH (21:13)
[2023-12-24] MEDS ORDERED: ONDANSETRON INJ 2 MG/ML 2 ML VIAL IV PRN (23:15)
[2023-12-24] MEDS ORDERED: ARTIFICIAL TEARS OP PRN (23:40)
[2023-12-25] MEDS: ARTIFICIAL TEARS OP SCH (00:08)
[2023-12-25] MEDS: ATORVASTATIN 20 MG TAB PO SCH (00:09)
[2023-12-25] MEDS: METOPROLOL TARTRATE 50 MG TAB PO SCH (00:10)
[2023-12-25] MEDS: MUPIROCIN 2% OINT 22 GM TUBE TOP SCH (00:10)
[2023-12-25 00:42] LABS: Hematocrit (blood only) 24.1 % (42.0-52.0); Hemoglobin 8.1 g/dl (14.0-18.0)
[2023-12-25 06:56] LABS: Hematocrit (blood only) 23.4 % (42.0-52.0); Hemoglobin 7.9 g/dl (14.0-18.0); Mean Corpuscular Hemoglobin 33.8 pg (25.0-34.0); Mean Corpuscular Hgb Conc 33.8 g/dL (32.0-36.0); Mean Platelet Volume 9.4 fL (9.4-12.4); Platelet Count 66 K/uL (130-400); RDW Coefficient of Variation 13.2 % (11.5-14.5); RDW Standard Deviation 47.6 fL (36.4-46.3); Red Blood Count 2.34 M/uL (4.70-6.10); White Blood Count 4.52 K/ul (4.8-10.8)
--- OUTSIDE RECORDS SUMMARY | 2023-12-25 07:25 | External Medical Summary | Summary of Care ---
Author Name Unknown Organization [facility] Address [address] [place] [address] Phone [phone] Care Team Providers Care Ski Patrol Name Role Phone EmilianoherminiaJose Angel DO Primary Care Provider [phone] Encounter Details Date Type Department Care Team (Late st Contact Info) Description 12/23/2023 1:30 PM EDT Laboratory Lab [address] [address] [place], Lab [address] [address] Diarrhea, unspecified type Allergies Active Allergy Reactions Criticality Noted Date Comments Ibuprofen 12/12/2013 Aspirin 07/03/2021 Other reaction(s): CANNOT TAKE DUE TO GASTRITIS Valdecoxib 03/03/2013 General ill feeling Celecoxib Other (Please comment) 08/27/2017 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 09/12/2022 Active Mupirocin Calcium 2 % External Cream [...] 180 Tablet 3 05/20/2023 Active Nystatin-Triamcinol one 416152-1.1 UNIT/GM-% External Cream (Mycolog)Indication s:Chronic dermatitis APPLY [...] before bedtime. 180 Tablet 3 12/02/2023 Active Atorvastatin Calcium 20 MG Oral Tablet (Lipitor) Take 1 Tablet by mouth every morning. 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 Atherosclerosis of [place] 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 angina pectoris 05/18/2022 [...] leg, recurrent Diastolic dysfunction 07/06/2016 Thrombocytopenia 06/05/2013 [facility] current use of anticoagulant therapy 0 10/21/2012 Overview: ICD-10 update of inactive term Insomnia Chronic rhinitis documented as of this encounter (statuses as of 12/23/2023) Resolved Problems Problem Noted Date Diagnosed Date [...] as of this encounter (statuses as of 12/23/2023) Immunizations Name Administration Dates Next Due COVID-19 mRNA, LNP-s, No Pre serve, 2-Dose Series ([facility]) 08/02/2021,02/13/2021,07/28/2020,06/27 COVID-19, MRNA-LNP, 23-24, P F, 30 MCG/0.3 mL, 12 YRS AND ABOVE, IM [facility]) 02/12/2023 Covid-19, Mrna, Lnp-s, Pf, B ivalent, [...] Date Recorded PHQ Adult Total Score 0 12/13/2023 Hunger Vital Sign Answer Date Recorded Within the past 12 months, y ou worried that your food would run out before you got the money to buy more. Never true 12/13/19 24 Within the past 12 months, t he food you bought just didn't last and you didn't have money to get more. Never true 12/13/2023 Childcare Answer Date Recorded Do you feel overwhelmed with taking care of a child, family member or friend? No 12/13/2023 Does your family need help f inding childcare? (Household - for ages 0-17 years) Not on file 12/13/2023 Clothing Answer Date Recorded Have you been unable to get clothing when it was really needed? No 12/13/2023 Is your family able to get c lothes or diapers when needed? (Household - for ages 0-17 years) Not on file 12/13/2023 Personal Safety Answer Date Recorded Do you feel unsafe or have concerns for your saf ety? No 12/13/2023 Do you have concerns for you r family's safety? (Household - for ages 0-17 years) Not on file 12/13/2023 Utilities Answer Date Recorded Do you have trouble paying y our heating, water, or electric bill? No 12/13/2023 Is your family able to pay t he heat, water, or electric bill? (Household - for ages 0-17 years) Not on file 12/13/2023 Does your family have access to good internet? (Household - for ages 0-17 years) Not on file 12/13/2023 Employment Status Answer Date Recorded Are you unemployed or without regular income? No 12/13/2023 Does the household have a re lar source of income? (Household - for ages 0-17 years) Not on file 12/13/2023 Social Connections Answer Date Recorded How often do you feel lonely or isolated from th ose around you? Never 12/13/2023 Financial Resource Strain Answer Date R ecorded Do you have any trouble payi ng for your medications, or do you think you might in the future? No 12/13/2023 Does your family have troubl e paying for medicine? (Household - for ages 0-17 years) Not on file 12/13/2023 Transportation Needs Answer Date Record ed READ ONLY Do you have troubl e getting a ride to medical visits or work? Never True 12/13/2023 Does your family have a hard time getting a ride to doctors visits? (Household - for ages 0-17 years) Not on file 12/13/2023 Has lack of transportation k ept you from medical appointments, meetings, work, or from getting things needed for daily living? Check all that apply. No 12/13/2023 Do you (or your family) have trouble finding or paying for a ride (transportation)? (Household - for ages 0-17 years) Not on file 12/13/2023 Housing Stability Answer Date Recorded Do you currently live in a s helter or have no steady place to sleep at night? No 12/13/2023 READ ONLY Do you think you a re at risk of becoming homeless? No 12/13/2023 Does your family worry about paying for your home or becoming homeless? (Household - for ages 0-17 years) Not on file 0 12/13/2023 Are you homeless or worried that you might be in the future? No 12/13/2023 Are you (or your family) prasad eless or worried that you might be in the future? (Household - for ages 0-17 years) Not on file Food Insecurity Answer Date Recorded Do you need food for this week? No 12/13/2023 Are you able to get enough f ood for your family? (Household - for ages 0-17 years) Not on file 12/13/2023 Does your family need food t his week? (Household - for ages 0-17 years) Not on file 12/13/2023 Do you always have enough fo od for your family? (Household - for ages 0-17 years) Not on file 12/13/2023 Sex and Gender Information Value Date Recorded [...] as of this encounter Progress Notes * Angela Small CCMA - 12/23/2023 2:13 PM EDT LAB DRAWN AND SENT TO [facility]. documented in this encounter Plan of Treatment Upcoming Encounters Date Type Department Care Team (Late st Contact Info) Description 12/24/2023 11:20 AM EDT Office Visit [facility] [address] [facility] [address] [place] [address] Jose Angel Weeks, DO [address] [place] [address] 01/08/2024 12:40 PM EDT Office Visit Neurology [facility] [address] [place], [place] [address] Marquita Herrera PA-C [address] [place] [address] 04/06/2024 2:00 PM EST Office Visit [address] [place] [address] Jose Angel Weeks, DO [address] [facility] [place], [place] [address] 04/07/2024 10:00 AM EST Laboratory Laboratory [facility] [address] [place], [place] [id number] [facility] [address] [facility] [place], [place] [address] 04/14/2024 2:15 PM EST Office Visit Hematology/Oncology [facility] [place] [address] [place], [place] [phone] Edmar Meeks MD [address] [facility] [place], [place] [address] 07/30/2024 1:30 PM EDT Office Visit Neurology [facility] [place] [address] [place], [place] [address] Nataliya Vieyra PA-C [address] [place] [address] 10/28/2024 2:30 PM EDT Cardiac Studies Cardiac Studies, [facility] [address] [place] [address] 12/11/2024 2:00 PM EDT Office Visit Dermatology [facility] [place] [address] [facility] [place] [address] Jacky Arroyo MD [address] [place] [address] Pending Results Name Type Priority Associated Diagnoses Date /Time COMPREHENSIVE METABOLIC PANEL Lab Routine Diarrhea, unspecified type 12/23/2023 2:10 PM EDT CBC WITH WBC DIFFERENTIAL Lab Routine Diarrhea, unspecified type 12/23/2023 2:10 PM EDT CBC Lab Routine Diarrhea, unspecified type 12/23/2023 2:10 PM EDT DIFFERENTIAL, AUTOMATED Lab Routine Diarrhea, unspecified type 12/23/2023 2:10 PM EDT Scheduled Procedures Name Priority Associated [...] exists Postponed from 06/15/2023 (Unavailable) Depression Screening 12/12/2024 12/13/2023 Colonoscopy 06/24/2025 06/24/2020, 08/28, 09/18/2016 DTaP,Tdap,and Td Vaccines (3 - Td or Tdap) 03/16/2026 03/16/2016, 10/21/2004 Pneumococcal Vaccine: 65+ Years Completed 03/15/2015, 10/22/2011 Zoster Vaccines Completed 06/27/2018, 1109/2017, 09/19/2017, Additional history exists RETIRED - COLONOSCOPY-EVERY [...] this encounter Medical Devices Implanted Type Area Iron Launder Operator Device Identifier Shelf Expiration Date Model / Serial / Lot Graft Lyoplant 10.0x12.5cm 4x5 - [id number] - [id number] Implanted:Qty : 1 on 04/20/2022 by Prudencio Sung III, MD at OR [facility] Left: Head B JEFFERY : AESCULAP [id number] 09/26/2026 [id number] / [id number] / [id number] Mesh Ti Lo Mal Sm Arc 421.536 - [id number] Implanted:Qty : 1 on 04/20/2022 by Prudencio Sung III, MD at OR [facility] Left: Head SYNTHES MAXILLOFACIAL 421.536 / / Screw Ti Lo Pro Sd 4mm 400.834 - [id number] Implanted:Qty : 13 on 04/20/2022 by Prudencio Sung III, MD at OR [facility] Left: Head SYNTHES MAXILLOFACIAL 400.834 / / Cover Bur Hol Ti Lo 17 421.527 - [id number] Implanted:Qty : 4 on 04/20/2022 by Prudencio Sung III, MD at OR [facility] Left: Head SYNTHES MAXILLOFACIAL 421.527 / / Cover [place] 17mm 421.554 - [id number] Implanted:Qty : 1 on 04/20/2022 by Prudencio Sung III, MD at OR [facility] Left: Head SYNTHES MAXILLOFACIAL 421.554 / / Valve Tavr Jayson 29mm - [id number] Implanted:Qty : 1 on 09/05/2022 by Alexis Crenshaw MD at CARDIAC LABS [facility] [employer] SHAHBAZ [id number] 03/08/2023 [id number] / / documented as of this encounter Visit Diagnoses Diagnosis Diarrhea, unspecified type documented in this encounter Advance Directives Documents on File Type Date Recorded Patient Manager Loss Prevention Expl anation Advance Directives and Living Will [...] Care Agent (per Health Care Power of Physical Science Professor document) Care Teams Ski Patrol Relationship Specialty Start Date End Date Jose Angel Weeks DO [address] [place] [address] PCP - General Internal Medicine 11/25/23 documented as of this encounter
--- OUTSIDE RECORDS SUMMARY | 2023-12-25 07:25 | External Medical Summary | Summary of Care ---
Author Name Unknown Organization [facility] Address [address] [place] [address] Phone [phone] Care Team Providers Care Medical Review Specialist Name Role Phone EmilianoherminiaJose Angel DO Primary Care Provider [phone] Reason for Visit * Reason Comments Outpatient Testing Encounter Details Date Type Department Care Team (Late st Contact Info) Description 12/24/2023 10:40 AM EDT Laboratory Laboratory [facility] [address] [place] [phone] [facility] Lab [facility] 200 [facility] [place] [address] Dark stools Allergies Active Allergy Reactions Criticality Noted Date Comments Ibuprofen 12/12/2013 Aspirin 07/03/2021 Other reaction(s): CANNOT TAKE DUE TO GASTRITIS Valdecoxib 03/03/2013 General ill feeling Celecoxib Other (Please comment) 08/27/2017 ferry terminal agent use caused heart-burn Codeine 12/12/2022 Other Reaction(s): [...] as of this encounter (statuses as of 12/24/2023) Medications Medication Sig Dispensed Refills Start Date [...] 180 Tablet 3 05/20/2023 Active Nystatin-Triamcinol one 261374-4.1 UNIT/GM-% External Cream (Mycolog)Indication s:Chronic dermatitis APPLY [...] as of this encounter (statuses as of 12/24/2023) Active Problems Problem Noted Date Diagnosed Date Panic attacks 06/04/2023 Paroxysmal atrial fibrillation 01/29/2023 Obstructive sleep apnea of adult 01/29/2023 Status post transcatheter ao rtic valve replacement (TAVR) using bioprosthesis 09/04/2022 Aortic ectasia 05/18/2022 Atherosclerosis of [place] co 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 angina pectoris 05/18/2022 [...] 09/12 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 History of compression fracture of spine 018 Overview: Winter , T10, L5 - traumatic 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 leg, recurrent Diastolic dysfunction 07/06/2016 Thrombocytopenia 06/05/2013 intermediate current use of anticoagulant therapy 0 10/21/2012 Overview: ICD-10 update of inactive term Insomnia Chronic rhinitis documented as of this encounter (statuses as of 12/24/2023) Resolved Problems Problem Noted Date Diagnosed Date [...] as of this encounter (statuses as of 12/24/2023) Immunizations Name Administration Dates Next Due COVID-19 mRNA, LNP-s, No Pre serve, 2-Dose Series (Mabaya) 08/02/2021,02/13/2021,07/28/2020,06/27 COVID-19, MRNA-LNP, 23-24, P F, 30 MCG/0.3 mL, 12 YRS AND ABOVE, IM (Miiix-Comirnat) 02/12/2023 Covid-19, Mrna, Lnp-s, Pf, B ivalent, [...] Description 12/24/2023 11:20 AM EDT Office Visit Family Practice [address], [place] [address] [place] [place] [address] Jose Angel Weeks, DO 293 [place] [address] 01/08/2024 12:40 PM EDT Office Visit Neurology [facility] [address] [place] [address] Marquita Herrera PA-C [address] [place] [address] 04/06/2024 2:00 PM EST Office Visit Family Practice [address] [place] [address] 293 [place] [address] Jose Angel Weeks, 293 [place] [address] 04/07/2024 10:00 AM EST Laboratory Laboratory [facility] [address] [place] [phone] [place], Lab [facility] 200 [facility] [place] [address] 04/14/2024 2:15 PM EST Office Visit Hematology/Oncology [facility] [address] [place] [phone] Edmar Meeks MD [address] [place] [address] 07/30/2024 1:30 PM EDT Office Visit Neurology [facility] [address] [place] [address] Nataliya Vieyra PA-C [address] [place] [address] 10/28/2024 2:30 PM EDT Cardiac Studies Cardiac Studies, [facility] [address] [facility] [place] [address] 12/11/2024 2:00 PM EDT Office Visit Dermatology [facility] [address] [place] [address] Jacky Arroyo MD 200 [facility] [place] [address] Pending Results Name Type Priority Associated Diagnoses Date /Time FECAL OCCULT BLOOD, EIA Lab Routine Dark stools 12/24/2023 10:38 AM EDT Scheduled Procedures Name Priority Associated [...] 12/12/2024 12/13/2023 Colonoscopy 06/24/2025 06/24/2020, 08/28, 09/18/2016 DTap/Tdap Vaccines (3 - Td or Tdap) 03/16/2026 [...] this encounter Medical Devices Implanted Type Area Fish Smoker Device Identifier Shelf Expiration Date Model / Serial / Lot Graft Lyoplant 10.0x12.5cm 4x5 - [id number] - [id number] Implanted:Qty : 1 on 04/20/2022 by Prudencio Sung III, MD at [place] [facility] Left: Head B JEFFERY : AESCULAP [id number] 09/26/2026 [id number] / [id number] / [id number] Mesh Ti Lo Mal Sm Arc 421.536 - [id number] Implanted:Qty : 1 on 04/20/2022 by Prudencio Sung III, MD at [place] [facility] Left: Head SYNTHES MAXILLOFACIAL 421.536 / / Screw Ti Lo Pro Sd 4mm 400.834 - [id number] Implanted:Qty : 13 on 04/20/2022 by Prudencio Sung III, MD at [place] [facility] Left: Head SYNTHES MAXILLOFACIAL 400.834 / / Cover Bur Hol Ti Lo 17 421.527 - [id number] Implanted:Qty : 4 on 04/20/2022 by Prudencio Sung III, MD at [place] [facility] Left: Head SYNTHES MAXILLOFACIAL 421.527 / / Cover [place] Hole 17mm 421.554 - [id number] Implanted:Qty : 1 on 04/20/2022 by Prudencio Sung III, MD at [place] [facility] Left: Head SYNTHES MAXILLOFACIAL 421.554 / / Valve Tavr Jayson 29mm - [id number] Implanted:Qty : 1 on 09/05/2022 by Alexis Crenshaw MD at [facility] [employer] [id number] 03/08/2023 [id number] / / documented as of this encounter Visit Diagnoses Diagnosis Dark stools Nonspecific abnormal finding in stool contents documented in this encounter Advance Directives Documents on File Type Date Recorded Patient Medical Scientist Expl anation Advance Directives and Living Will [...] Care Agent (per Health Care Power of Billing Manager document) Care Teams Medical Review Specialist Relationship Specialty Start Date End Date Jose Angel Weeks DO [address] [place] [address] PCP - General Internal Medicine 11/25/23 documented as of this encounter
--- OUTSIDE RECORDS SUMMARY | 2023-12-25 07:25 | External Medical Summary | Summary of Care ---
Author Name Unknown Organization [facility] Address [address] [place] [address] Phone [phone] Care Team Providers Care Underwater Hunter Name Role Phone EmilianoherminiaJose Angel DO Primary Care Provider [phone] Encounter Details Date Type Department Care Team (Late st Contact Info) Description 12/23/2023 1:30 PM EDT Laboratory Lab [address] [address] [place], Lab [address] [address] Diarrhea, unspecified type Allergies Active Allergy Reactions Criticality Noted Date Comments Ibuprofen 12/12/2013 Aspirin 07/03/2021 Other reaction(s): CANNOT TAKE DUE TO GASTRITIS Valdecoxib 03/03/2013 General ill feeling Celecoxib Other (Please comment) 08/27/2017 predatory animal exterminator use caused heart-burn Codeine 12/12/2022 Other [...] 180 Tablet 3 05/20/2023 Active Nystatin-Triamcinol one 430906-3.1 UNIT/GM-% External Cream (Mycolog)Indication s:Chronic dermatitis APPLY [...] bioprosthesis 09/04/2022 Aortic ectasia 05/18/2022 Atherosclerosis of [place] co 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 angina pectoris 05/18/2022 [...] 09/12 BCC right upper back BCC left mosque History of compression fracture of spine 018 [...] mRNA, LNP-s, No Pre serve, 2-Dose Series (Diana) 08/02/2021,02/13/2021,07/28/2020,06/27 COVID-19, MRNA-LNP, 23-24, P F, 30 MCG/0.3 mL, 12 YRS AND ABOVE, IM (AimWith-Cox Monettirnat) 02/12/2023 Covid-19, Mrna, Lnp-s, Pf, B ivalent, [...] PM EDT LAB DRAWN AND SENT TO [facility]. documented in this encounter Miscellaneous Notes * Result Encounter Note - Aaliyah Clemente LPN - 12/24/2023 9:06 AM EDT See telephone encounter. documented in this encounter Plan of Treatment Upcoming Encounters Date Type Department Care Team (Late st Contact Info) Description 01/08/2024 12:40 PM EDT Office Visit Neurology [facility] [address] [place] [address] Marquita Herrera PA-C [address] [place] [address] 04/06/2024 2:00 PM EST Office Visit Family Practice [address] [place] [address] 293 [place] [address] Jose Angel Weeks DO 293 [facility] [place] [address] 04/07/2024 10:00 AM EST Laboratory Laboratory [facility] 200 [facility] [place] [phone] [address] [place], [place] [address] 04/14/2024 2:15 PM EST Office Visit Hematology/Oncology [facility] [address] [place] [phone] Edmar Meeks MD 200 [facility] [place], [place] [address] 07/30/2024 1:30 PM EDT Office Visit Neurology [facility] [address] [place] [address] Nataliya Vieyra PA-C [address] [place] [address] 10/28/2024 2:30 PM EDT Cardiac Studies Cardiac Studies, [facility] [place] [address] 12/11/2024 2:00 PM EDT Office Visit Dermatology [address] [place] 200 [facility] [place] [address] Jacky Arroyo MD 200 [facility] [place] [address] Scheduled Procedures Name Priority Associated Diagnoses Date/Ti [...] this encounter Medical Devices Implanted Type Area Baby Nurse Device Identifier Shelf Expiration Date Model / Serial / Lot Graft Lyoplant 10.0x12.5cm 4x5 - [id number] - [id number] Implanted:Qty : 1 on 04/20/2022 by Prudencio Sung III, MD at [place] [facility] Left: Head B JEFFERY : JAVIER [id number] 09/26/2026 [id number] / [id number] / [id number] Mesh Ti Lo Mal Sm Arc 421.536 - [id number] Implanted:Qty : 1 on 04/20/2022 by Prudencio Sung III, MD at [place] [facility] Left: Head SYNTHES MAXILLOFACIAL 421.536 / / Screw Ti Lo Pro Sd 4mm 400.834 - [id number] Implanted:Qty : 13 on 04/20/2022 by Prudencio Sung III, MD at [place] [facility] Left: Head SYNTHES MAXILLOFACIAL 400.834 / / Cover Bur Hol Ti Lo 17 421.527 - [id number] Implanted:Qty : 4 on 04/20/2022 by Prudencio Sung III, MD at [place] [facility] Left: Head SYNTHES MAXILLOFACIAL 421.527 / / Cover [place] Hole 17mm 421.554 - [id number] Implanted:Qty : 1 on 04/20/2022 by Prudencio Sung III, MD at [place] [facility] Left: Head SYNTHES MAXILLOFACIAL 421.554 / / Valve Tavr Jayson 29mm - [id number] Implanted:Qty : 1 on 09/05/2022 by Alexis Crenshaw MD at [facility] [employer] [id number] 03/08/2023 [id number] / / documented as of this encounter Procedures Procedure Name Priority Date/Time Associated Diagnosis Comments DIFFERENTIAL, AUTOMATED Routine 12/23/2023 2:10 PM EDT Diarrhea, unspecified type COMPREHENSIVE METABOLIC PANEL Routine 12/23/2023 2:10 PM EDT Diarrhea, unspecified type CBC Routine 12/23/2023 2:10 PM EDT Diarrhea, unspecified type CBC Routine 12/23/2023 2:10 PM EDT Diarrhea, unspecified type DIFFERENTIAL, TECHNOLOGIST REVIEW Routine 12/23/2023 2:10 PM EDT Diarrhea, unspecified type documented in this encounter Results * DIFFERENTIAL, TECHNOLOGIST REVIEW (12/23/2023 2:10 PM EDT) Blood Venous blood specimen / Unknown Venipuncture / Unknown 12/23/2023 2:10 PM EDT 12/23/2023 2:10 PM EDT Jose Angel Weeks DO LAB BLOOD ORDERABLES [facility] [address] [place] [address] * DIFFERENTIAL, AUTOMATED (12/23/2023 2:10 PM EDT) WBC 5.41 4.00 - 10.80 K/uL 12/24/2023 12:44 AM EDT [facility] Neutrophils % 63.5 40.0 - 75.0 % 12/24/2023 12:44 AM EDT [facility] Lymphocytes % 24.2 18.0 - 42.0 % 12/24/2023 12:44 AM EDT [facility] Monocytes % 10.2 1.0 - 11.0 % 12/24/2023 12:44 AM EDT [facility] Eosinophils % 1.3 0.0 - 6.0 % 12/24/2023 12:44 AM EDT [facility] Basophils % 0.4 0.0 - 2.0 % 12/24/2023 12:44 AM EDT [facility] Immature Granulocytes % 0.4 0.0 - 2.0 % 12/24/2023 12:44 AM EDT [facility] Absolute Neutrophils 3.44 1.80 - 7.70 K/uL 12/24/2023 12:44 AM EDT [facility] Absolute Lymphocytes 1.31 1.00 - 4.80 K/ul 12/24/2023 12:44 AM EDT [facility] Absolute Monocytes 0.55 0.00 - 1.10 K/uL 12/24/2023 12:44 AM EDT [facility] Absolute Eosinophils 0.07 0.00 - 0.70 K/uL 12/24/2023 12:44 AM EDT [facility] Absolute Basophils 0.02 0.00 - 0.20 K/uL 12/24/2023 12:44 AM EDT [facility] Absolute Immature Granulocytes 0.02 0.00 - 0.20 K/uL 12/24/2023 12:44 AM EDT [facility] Blood Venous blood specimen / Unknown Venipuncture / Unknown 12/23/2023 2:10 PM EDT 12/23/2023 2:10 PM EDT Jose Angel Weeks DO LAB BLOOD ORDERABLES [facility] [address] [place] [address] * (ABNORMAL) CBC (12/23/2023 2:10 PM EDT) WBC 5.41 4.00 - 10.80 K/uL 12/24/2023 12:44 AM EDT [facility] RBC 2.55 4.50 - 5.25 M/uL 12/24/2023 12:44 AM EDT [facility] HGB 9.1(L) 14.0 - 16.8 g/dL 12/24/2023 12:44 AM EDT [facility] HCT 27.6(L) 40.0 - 48.4 % 12/24/2023 12:44 AM EDT [facility] MCV 108.2 82.0 - 99.5 fL 12/24/2023 12:44 AM EDT [facility] MCH 35.7 27.0 - 34.0 pg 12/24/2023 12:44 AM EDT [facility] MCHC 33.0 32.0 - 36.0 g/dL 12/24/2023 12:44 AM EDT [facility] RDW 11.9 11.5 - 15.5 % 12/24/2023 12:44 AM EDT [facility] PLT 88(L) 140 - 400 K/uL 12/24/2023 12:44 AM EDT [facility] MPV 9.9 6.6 - 11.1 fL 12/24/2023 12:44 AM EDT [facility] nRBCs 0 <=0 /100 WBCs 12/24/2023 12:44 AM EDT [facility] Blood Venous blood specimen / Unknown Venipuncture / Unknown 12/23/2023 2:10 PM EDT 12/23/2023 2:10 PM EDT Jose Angel Weeks DO LAB BLOOD ORDERABLES [facility] [address] [place] [address] * (ABNORMAL) COMPREHENSIVE METABOLIC PANEL (12/23/2023 2:10 PM EDT) BUN 53(H) 6 - 20 mg/dL 12/24/2023 1:19 AM EDT [facility] Creatinine 0.9 0.6 - 1.2 mg/dL 12/24/2023 1:19 AM EDT [facility] Estimated Glomerular Filtration Rate 84 >=60 mL/min 12/24/2023 1:19 AM EDT [facility] Comment:eGFR is calculated b ased on the CKD-EPI 2020 equation. Sodium 131(L) 135 - 146 mmol/L 12/24/2023 1:19 AM EDT [facility] Potassium 4.9 3.5 - 5.1 mmol/L 12/24/2023 1:19 AM EDT [facility] Chloride 95(L) 98 - 107 mmol/L 12/24/2023 1:19 AM EDT [facility] CO2 31 22 - 32 mmol/L 12/24/2023 1:19 AM EDT [facility] Anion Gap 5(L) 7 - 15 mmol/L 12/24/2023 1:19 AM EDT [facility] Glucose 102 70 - 120 mg/dL 12/24/2023 1:19 AM EDT [facility] Albumin 4.1 3.8 - 5.0 g/dL 12/24/2023 1:19 AM EDT [facility] AST 14 10 - 50 U/L 12/24/2023 1:19 AM EDT [facility] Alkaline Phosphatase 61 35 - 130 U/L 12/24/2023 1:19 AM EDT [facility] Bilirubin, Total 0.5 <=1.2 mg/dL 12/24/2023 1:19 AM EDT [facility] Calcium 9.2 8.4 - 10.2 mg/dL 12/24/2023 1:19 AM EDT [facility] Protein 5.7(L) 6.0 - 8.3 g/dL 12/24/2023 1:19 AM EDT [facility] ALT 12 10 - 50 U/L 12/24/2023 1:19 AM EDT [facility] Blood Venous blood specimen / Unknown Venipuncture / Unknown 12/23/2023 2:10 PM EDT 12/23/2023 2:10 PM EDT Jose Angel Weeks DO LAB BLOOD ORDERABLES [facility] [address] [place] [address] documented in this encounter Visit Diagnoses Diagnosis Diarrhea, unspecified type documented in this encounter Advance Directives Documents on File Type Date Recorded Patient Adoption Coordinator Expl anation Advance Directives and Living [...] Care Agent (per Health Care Power of Business Solutions Consultant document) Care Teams Underwater Hunter Relationship Specialty Start Date End Date Jose Angel Weeks DO [address] [place] [address] PCP - General Internal Medicine 11/25/23 documented as of this encounter
--- OUTSIDE RECORDS SUMMARY | 2023-12-25 07:25 | External Medical Summary | Summary of Care ---
Author Name Unknown Organization [facility] Address [address] [place] [address] Phone [phone] Care Team Providers Care Mechanic And Welder Name Role Phone EmilianoherminiaJose Angel DO Primary Care Provider [phone] Encounter Details Date Type Department Care Team (Late st Contact Info) Description 12/23/2023 1:15 PM EDT Nurse Only Family Practice [address] [address] College, Nurse [facility] [address] [address] Arrived Allergies Active Allergy Reactions Criticality Noted Date Comments Ibuprofen 12/12/2013 Aspirin 07/03/2021 Other reaction(s): CANNOT TAKE DUE TO GASTRITIS Valdecoxib 03/03/2013 General ill feeling Celecoxib Other (Please comment) 08/27/2017 long term acute care registered nurse use caused heart-burn Codeine 12/12/2022 Other Reaction(s): [...] 180 Tablet 3 05/20/2023 Active Nystatin-Triamcinol one 901962-2.1 UNIT/GM-% External Cream (Mycolog)Indication s:Chronic dermatitis APPLY [...] 09/12 BCC right upper back BCC left church History of compression fracture of spine 018 Overview: Winter , T10, L5 - traumatic 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 leg, recurrent Diastolic dysfunction 07/06/2016 Thrombocytopenia 06/05/2013 long term acute care registered nurse current use of anticoagulant therapy 0 10/21/2012 [...] mRNA, LNP-s, No Pre serve, 2-Dose Series (enModus) 08/02/2021,02/13/2021,07/28/2020,06/27 COVID-19, MRNA-LNP, 23-24, P F, 30 MCG/0.3 mL, 12 YRS AND ABOVE, IM (Industriaplex-Comirnat) 02/12/2023 Covid-19, Mrna, Lnp-s, Pf, B ivalent, [...] Past Smokeless Tobacco: Never Tobacco Cessation:Counseling Given: Yes Comments:No passive smoke exposure Alcohol Use Standard [...] 12/13/2023 Does the household have a re gular [...] Sign Reading Time Taken Comments Blood Pressure 118/52 12/23/2023 1:45 PM EDT Pulse 68 12/23/2023 1:45 PM EDT Temperature 36.3 C (97.4 F) 12/23/2023 1:45 PM ED T Respiratory Rate 18 12/23/2023 1:45 PM EDT Oxygen Saturation 97% 12/23/2023 1:45 PM EDT Inhaled Oxygen Concentration - - Weight 78.5 kg (173 lb 1.6 oz) 12/23/2023 1:45 P M EDT Height 177.8 cm (5' 10") 12/23/2023 1:45 PM EDT Body Mass Index 24.84 12/23/2023 1:45 PM EDT documented in this encounter Functional [...] No 09/04/2022 documented as of this encounter Nursing Notes * Angela Small CCMA - 12/23/2023 1:33 PM EDT Pt states that it all started or Saturday night. Saturday night he had a loss of vision. States that he was having night sweats, and black stool. Did have some stomach pains. Was feeling well enough Saturday to walk on the treadmill. States that this morning he was not feeling well. States that he "just didn't feel right" and felt a little nauseated. He thought he might have had a fever. Pt did have a little bit of breakfast this morning right around 9 am. Pt states that he felt better aftereating. states that when he had a BM, there was a black film on the toilet. Spoke with Dr. Weeks - vitals are stable, pt is eating and drinking ok. Will follow up tomorrow here in the office for ER follow up. documented in this encounter Plan of Treatment Upcoming Encounters Date Type Department Care Team (Late st Contact Info) Description 12/24/2023 11:20 AM EDT Office Visit Family Practice 65 [facility] [place] 293 [facility], [place] [address] Jose Angel Weeks, DO 293 [facility] [address] 01/08/2024 12:40 PM EDT Office Visit Neurology [facility] Nett[place] [address] [place] [address] Marquita Herrera PA-C [address] [place] [address] 04/06/2024 2:00 PM EST Office Visit Family Practice [address] [place] [address], [place] 293 [facility], [place] [address] Jose Angel Weeks DO 293 [facility], [place] [address] 04/07/2024 10:00 AM EST Laboratory Laboratory [facility] [address] [place] [address] [place], [facility] [address] [facility] [place] [address] 04/14/2024 2:15 PM EST Office Visit Hematology/Oncology [facility] [address] [place] [address] Edmar Meeks MD [address] [facility] [place] [address] 07/30/2024 1:30 PM EDT Office Visit Neurology [facility] [address] [place] [address] Nataliya Vieyra PA-C [address] [facility] [place] [address] 10/28/2024 2:30 PM EDT Cardiac Studies Cardiac Studies, [facility] 132 [facility] [place] [address] 12/11/2024 2:00 PM EDT Office Visit Dermatology [facility] [address] [place] [address] Jacky Arroyo MD [address] [place] [address] Scheduled Procedures Name Priority Associated Diagnoses Date/Ti [...] this encounter Medical Devices Implanted Type Area Solutions Architect Device Identifier Shelf Expiration Date Model / Serial / Lot Graft Lyoplant 10.0x12.5cm 4x5 - [id number] - [id number] Implanted:Qty : 1 on 04/20/2022 by Prudencio Sung III, MD at [place] [facility] Left: Head B JEFFERY : AESCULAP [id number] 09/26/2026 [id number] / [id number] / [id number] Mesh Ti Lo Mal Sm Arc 421.536 - [id number] Implanted:Qty : 1 on 04/20/2022 by Prudencio Sung III, MD at OR [facility] Left: Head SYNTHES MAXILLOFACIAL 421.536 / / Screw Ti Lo Pro Sd 4mm 400.834 - [id number] Implanted:Qty : 13 on 04/20/2022 by Prudencio Sung III, MD at OR [facility] Left: Head SYNTHES MAXILLOFACIAL 400.834 / / Cover Bur Hol Ti Lo 17 421.527 - [id number] Implanted:Qty : 4 on 04/20/2022 by Prudencio Sung III, MD at OR [facility] Left: Head SYNTHES MAXILLOFACIAL 421.527 / / Cover [place] Hole 17mm 421.554 - [id number] Implanted:Qty : 1 on 04/20/2022 by Prudencio Sung III, MD at OR [facility] Left: Head SYNTHES MAXILLOFACIAL 421.554 / / Valve Tavr Jayson 29mm - [id number] Implanted:Qty : 1 on 09/05/2022 by Alexis Crenshaw MD at [facility]ARDIAC [facility]S [facility] [employer] [id number] 03/08/2023 [id number] / / documented as of this encounter Advance Directives Documents on File Type Date Recorded Patient Cement Rubber Expl anation Advance Directives and Living Will [...] Care Agent (per Health Care Power of Tying In Machine Operator document) Care Teams Mechanic And Welder Relationship Specialty Start Date End Date Jose Angel Weeks DO [address] [place] [address] PCP - General Internal Medicine 11/25/23 documented as of this encounter
--- OUTSIDE RECORDS SUMMARY | 2023-12-25 07:25 | External Medical Summary ---
Author Name Unknown Address Unknown Organization K09:[facility] [place] [address] Laboratory Report Ordering Provider Test Date Status SHIV STEWART 12/24/2023 10:38:40 Final Observation Date Value Abnormality Reference (Units ) Status Occult Blood (EIA) 12/24/2023 10:38:40 Positive Abnormal N egative Final Performing Location [facility] [place] [address]
--- OUTSIDE RECORDS SUMMARY | 2023-12-25 07:25 | External Medical Summary | Summary of Care ---
Author Name Unknown Organization [facility] Address [address] [place] [address] Phone [phone] Care Team Providers Care Woods Superintendent Name Role Phone EmilianoherminiaJose Angel DO Primary Care Provider [phone] Encounter Details Date Type Department Care Team (Late st Contact Info) Description 12/23/2023 1:30 PM EDT Laboratory Lab [address] [address] [place], Lab [address] [address] Diarrhea, unspecified type Allergies Active Allergy Reactions Criticality Noted Date Comments Ibuprofen 12/12/2013 Aspirin 07/03/2021 Other reaction(s): CANNOT TAKE DUE TO GASTRITIS Valdecoxib 03/03/2013 General ill feeling Celecoxib Other (Please comment) 08/27/2017 tank terminal gauger use caused heart-burn Codeine 12/12/2022 Other Reaction(s): [...] 180 Tablet 3 05/20/2023 Active Nystatin-Triamcinol one 657196-3.1 UNIT/GM-% External Cream (Mycolog)Indication s:Chronic dermatitis APPLY [...] 09/04/2022 Aortic ectasia 05/18/2022 Atherosclerosis of [place] co 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 angina pectoris 05/18/2022 [...] 09/12 BCC right upper back BCC left 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 documented in this encounter Plan of Treatment Upcoming Encounters Date Type Department Care Team (Late st Contact Info) Description 12/24/2023 11:20 AM EDT Office Visit [facility] 65 [facility] 293 [place] [address] Jose Angel Weeks, DO 293 [place] [address] 01/08/2024 12:40 PM EDT Office Visit Neurology [facility] [address] [place], [place] [address] Marquita Herrera PA-C 200 [facility] [place] [address] 04/06/2024 2:00 PM EST Office Visit [address] 293 [place] [address] Jose Angel Weeks, DO 293 [facility], [place] [address] 04/07/2024 10:00 AM EST Laboratory Laboratory [facility] [address] [place], [place] [phone] Nettie Lab [facility] 200 [facility] [place], [place] [address] 04/14/2024 2:15 PM EST Office Visit Hematology/Oncology [facility] [place] [address] [place], [place] [address] Edmar Meeks MD 200 [facility] [place], [place] [address] 07/30/2024 1:30 PM EDT Office Visit Neurology [facility] [place] [address] [place], [place] [address] Nataliya Vieyra PA-C [address] [place] [address] 10/28/2024 2:30 PM EDT Cardiac Studies Cardiac Studies, [facility] [address] [place] [address] 12/11/2024 2:00 PM EDT Office Visit Dermatology [facility] [place] 200 [facility] [place] [address] Jacky Arroyo MD 200 [facility] [place] [address] Pending Results Name Type Priority Associated Diagnoses [...] this encounter Medical Devices Implanted Type Area Black Top Spreader Machine Operator Device Identifier Shelf Expiration Date Model / Serial / Lot Graft Lyoplant 10.0x12.5cm 4x5 - [id number] - [id number] Implanted:Qty : 1 on 04/20/2022 by Prudencio Sung III, [place] [facility] [place]: Head B JEFFERY : AESCULAP [id number] 09/26/2026 [id number] / [id number] / [id number] Mesh Ti Lo Mal Sm Arc 421.536 - [id number] Implanted:Qty : 1 on 04/20/2022 by Prudencio Sung III, [place] [facility] [place]: Head SYNTHES MAXILLOFACIAL 421.536 / / Screw Ti Lo Pro Sd 4mm 400.834 - [id number] Implanted:Qty : 13 on 04/20/2022 by Prudencio Sung III, [place] [facility] [place]: Head SYNTHES MAXILLOFACIAL 400.834 / / Cover Bur Hol Ti Lo 17 421.527 - [id number] Implanted:Qty : 4 on 04/20/2022 by Prudencio Sung III, [place] [facility] [place]: Head SYNTHES MAXILLOFACIAL 421.527 / / Cover [place] Hole 17mm 421.554 - [id number] Implanted:Qty : 1 on 04/20/2022 by Prudencio Sung III, [place] [facility] [place]: Head SYNTHES MAXILLOFACIAL 421.554 / / Valve Tavr Jayson 29mm - [id number] Implanted:Qty : 1 on 09/05/2022 by Alexis Crenshaw MD [place] [facility]ARD[facility]AC LAB[facility] [place] [employer] [place]AH[place]Z [id number] 03/08/2023 [id number] / / documented as of this encounter Visit Diagnoses Diagnosis Diarrhea, unspecified type documented in this encounter Advance Directives Documents on File Type Date Recorded Patient Crusher Plant Operator Expl anation Advance Directives and Living [...] Care Agent (per Health Care Power of Microfilming Document Preparer document) Care Teams Woods Superintendent Relationship Specialty Start Date End Date Jose Angel Weeks DO 293 [place] [address] PCP - General Internal Medicine 11/25/23 documented as of this encounter
--- OUTSIDE RECORDS SUMMARY | 2023-12-25 07:25 | External Medical Summary | Summary of Care ---
Author Name Unknown Organization [facility] Address [address] [place] [address] Phone [phone] Care Team Providers Care Energy Trading Analyst Name Role Phone Pat Weeks DO Primary Care Provider [phone] Reason for Visit * Reason Onset Date Comments Advice 12/23/2023 sweats Encounter Details Date Type Department Care Team (Late st Contact Info) Description 12/23/2023 Telephone Family Practice 65 [facility] 293 [place] [phone] Pat Weeks DO 293 [place] [address] Advice (sweats) Allergies Active Allergy Reactions Criticality Noted Date Comments Ibuprofen 12/12/2013 Aspirin 07/03/2021 Other reaction(s): CANNOT TAKE DUE TO GASTRITIS Valdecoxib 03/03/2013 General ill feeling Celecoxib Other (Please comment) 08/27/2017 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 History of compression fracture of spine 018 [...] mRNA, LNP-s, No Pre serve, 2-Dose Series (TwitJump) 08/02/2021,02/13/2021,07/28/2020,06/27 COVID-19, MRNA-LNP, 23-24, P F, 30 MCG/0.3 mL, 12 YRS AND ABOVE, IM (Kwikpik-Comirnaty) 02/12/2023 Covid-19, Mrna, Lnp-s, Pf, B ivalent, [...] encounter Miscellaneous Notes * Addendum Note - Pat Weeks DO - 12/23/2023 12:41 PM EDTAddended by: PAT WEEKS on: 12/23/2023 12:41 PM Modules accepted: Orders * Telephone Encounter - Aaliyah Patterson RN - 12/23/2023 10:47 AM EDT Call to pt-states past 2-3 nights having night sweats-starts in early evening and continues throughthe night-has to change his shirt 3 or more times a night. No fever-tep. 97.8. For past 3 days having black stools-at first it was a little diarrhea and with formed stools. Today was all diarrhea andblack. Today just doesn't feel well, nauseated-doesn't feel like eating, did eat a little for breakfast. He was feeling good prior to this-was even exercising Saturday and Saturday-using the treadmill.Was Admitted to [facility] 12/09-12/11 with TIA's. He was started on Lipitor on discharge. Pt already on Eliquis 5 mg bid. Told I would talk with Dr Weeks and would get back to him. Spoke with Dr Weeks-states have pt come in today for nurse visit-get full set of vitals, see how he is feeling, get lab work and do a FOBT. Call to pt pt agreeable to office nurse visit today at 1:15 PM. * Telephone Encounter - Svetlana Avila OSA - 12/23/2023 10:33 AM EDT Night sweats past two nights Black stools meaning bleeding stomach Headed to ED documented in this encounter Plan of Treatment Upcoming Encounters Date Type Department Care Team (Late st Contact Info) Description 12/23/2023 1:15 PM EDT Nurse Only Family Practice [address] [place] [address] [place] [address] College, Nurse Fam Prac [address] [place] [address] 12/24/2023 11:20 AM EDT Office Visit Family Practice [address] [place] [address] [place] [address] Pat Weeks, DO 293 [facility], [place] [address] 01/08/2024 12:40 PM EDT Office Visit Neurology [facility] [address] [place] [address] Marquita Herrera PA-C [address] [place], [place] [address] 04/06/2024 2:00 PM EST Office Visit [facility] 65 [facility] 293 [facility] [place], [place] [address] Pat Weeks, DO 293 [facility], [place] [address] 04/07/2024 10:00 AM EST Laboratory Laboratory [facility] [address] [place] [address] Nettie Lab [facility] 200 [facility] [place], [place] [address] 04/14/2024 2:15 PM EST Office Visit Hematology/Oncology [facility] [address] [place], [place] [address] Edmar Meeks MD [address] [place], [place] [address] 07/30/2024 1:30 PM EDT Office Visit Neurology [facility] [address] [place], [place] [address] Nataliya Vieyra PA-C [address] [place] [address] 10/28/2024 2:30 PM EDT Cardiac Studies Cardiac Studies, [facility] 132 [facility] [place] [address] 12/11/2024 2:00 PM EDT Office Visit Dermatology [facility] [address] [place] [address] Jacky Arroyo MD 200 [facility] [place] [address] Scheduled Orders Name Type Priority Associated Diagnoses Orde r Schedule FECAL OCCULT BLOOD, EIA Lab Routine Dark stools Expected: 12/23/2023 (Approximate), Expires: 12/22/2024 COMPREHENSIVE METABOLIC PANEL Lab Routine Diarrhea, unspecified type Expected: 12/23/2023 (Approximate), Expires: 12/22/2024 CBC WITH WBC DIFFERENTIAL Lab Routine Diarrhea, unspecified type Expected: 12/23/2023 (Approximate), Expires: 12/22/2024 Scheduled Procedures Name Priority Associated Diagnoses Date/Ti [...] this encounter Medical Devices Implanted Type Area Flame Planer Device Identifier Shelf Expiration Date Model / Serial / Lot Graft Lyoplant 10.0x12.5cm 4x5 - [id number] - [id number] Implanted:Qty : 1 on 04/20/2022 by Prudencio Sung III, [place] [facility] [place]: Head B JEFFERY : AESCULAP [id number] 09/26/2026 [id number] / [id number] / [id number] Mesh Ti Lo Mal Sm Arc 421.536 - [id number] Implanted:Qty : 1 on 04/20/2022 by Prudencio Sung III, MD at [place] [facility] Left: Head SYNTHES MAXILLOFACIAL 421.536 / / Screw Ti Lo Pro Sd 4mm 400.834 - [id number] Implanted:Qty : 13 on 04/20/2022 by Prudencio Sung III, MD at [place] [facility] Left: Head SYNTHES MAXILLOFACIAL 400.834 / / Cover Bur Hol Ti Lo 17 421.527 - [id number] Implanted:Qty : 4 on 04/20/2022 by Prudencio Sung III, MD at [place] [facility] Left: Head SYNTHES MAXILLOFACIAL 421.527 / / Cover Adilene Hole 17mm 421.554 - [id number] Implanted:Qty : 1 on 04/20/2022 by Prudencio Sung III, MD at [place] [facility] Left: Head SYNTHES MAXILLOFACIAL 421.554 / / Valve Tavr Jayson 29mm - [id number] Implanted:Qty : 1 on 09/05/2022 by Alexis Crenshaw MD at [facility] [employer] [id number] 03/08/2023 [id number] / / documented as of this encounter Visit Diagnoses Diagnosis Diarrhea, unspecified type- Primary Dark stools Nonspecific abnormal finding in stool contents documented in this encounter Advance Directives Documents on File Type Date Recorded Patient Mail Courier Expl anation Advance Directives and Living Will [...] Care Agent (per Health Care Power of Differential Tester document) Care Teams Energy Trading Analyst Relationship Specialty Start Date End Date Pat Weeks DO 293 [place] [address] PCP - General Internal Medicine 11/25/23 documented as of this encounter
--- OUTSIDE RECORDS SUMMARY | 2023-12-25 07:26 | External Medical Summary ---
Author Name Unknown Address Unknown Organization [id number]:[facility] [place] 100 [facility] [place] [address] Laboratory Report Ordering Provider Test Date Status PATSHIV 12/23/2023 14:10:02 Final Observation Date Value Abnormality Reference (Units ) Status SYNC LEUKOCYTES IN BLOOD BY AUTOMATED COUNT 12/23/2023 14:10:02 5.41 4.00-10.80 (K/uL) Final Segs 12/23/2023 14:10:02 63.5 40.0-75.0 (%) Final Lymphs % 12/23/2023 14:10:02 24.2 18.0-42.0 (%) Final Monos 12/23/2023 14:10:02 10.2 1.0-11.0 (%) Final Eosinophils 12/23/2023 14:10:02 1.3 0.0-6.0 (%) Final Basos 12/23/2023 14:10:02 0.4 0.0-2.0 (%) Final Immature Granulocyte, Percent 12/23/2023 14:10:02 0.4 0.0-2.0 (%) Final Absolute Segs 12/23/2023 14:10:02 3.44 1.80-7.70 (K/uL) Final Lymphs, absolute 12/23/2023 14:10:02 1.31 1.00-4.80 (K/ul) Final Monos, Abs 12/23/2023 14:10:02 0.55 0.00-1.10 (K/uL) Final Eos, Abs 12/23/2023 14:10:02 0.07 0.00-0.70 (K/uL) Final Basos, Abs 12/23/2023 14:10:02 0.02 0.00-0.20 (K/uL) Final Immature Granulocytes, Number 12/23/2023 14:10:02 0.02 0.00-0.20 (K/uL) Final Performing Location LABORATORY [facility] - [address] [facility] [address]
--- OUTSIDE RECORDS SUMMARY | 2023-12-25 07:26 | External Medical Summary | Summary of Care ---
Author Name Unknown Organization [facility] Address [address] [place] [address] Phone [phone] Care Team Providers Care Sliver Lapper Name Role Phone Jose Angel Weeks DO Primary Care Provider [phone] Reason for Visit * Reason Onset Date Comments Advice 12/23/2023 sweats Encounter Details Date Type Department Care Team (Late st Contact Info) Description 12/23/2023 Telephone Family Practice 65 [facility] 293 [place] [phone] Jose Angel Weeks DO 293 [place] [address] Advice (sweats) Allergies Active Allergy Reactions Criticality [...] 180 Tablet 3 05/20/2023 Active Nystatin-Triamcinol one 124605-1.1 UNIT/GM-% External Cream (Mycolog)Indication s:Chronic dermatitis APPLY [...] bioprosthesis 09/04/2022 Aortic ectasia 05/18/2022 Atherosclerosis of [place] co 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 angina pectoris 05/18/2022 [...] 09/12 BCC right upper back BCC left faith History of compression fracture of spine 018 [...] mRNA, LNP-s, No Pre serve, 2-Dose Series ([employer]ovation) 08/02/2021,02/13/2021,07/28/2020,06/27 COVID-19, MRNA-LNP, 23-24, P F, 30 MCG/0.3 mL, 12 YRS AND ABOVE, IM ([employer]-Comirnaty) 02/12/2023 Covid-19, Mrna, Lnp-s, Pf, B ivalent, [...] Miscellaneous Notes * Telephone Encounter - Aaliyah Patterson RN [...] Saturday and Saturday-using the treadmill.Was Admitted to [facility] 12/09-12/11 with TIA's. He was started on [...] PM EDT Nurse Only Family Practice [address] [place] [phone] College, Nurse Fam Prac [address] [address] 12/24/2023 11:20 AM EDT Office Visit Family Practice 65 [facility] 293 [place] [phone] Jose Angel Weeks, DO 293 [facility] [place] [address] 01/08/2024 12:40 PM EDT Office Visit Neurology [facility] [address] [place] [address] Marquita Herrera PA-C [address] [place] [address] 04/06/2024 2:00 PM EST Office Visit Family [facility] [address] [place] 293 [facility], [place] [address] Jose Angel Weeks, 293 [facility], [place] [address] 04/07/2024 10:00 AM EST Laboratory Laboratory [facility] [address] [place] [phone] [place] 200 [facility] [place] [address] 04/14/2024 2:15 PM EST Office Visit Hematology/Oncology [facility] [address] [place] [address] Edmar Meeks MD [address] [place] [address] 07/30/2024 1:30 PM EDT Office Visit Neurology [facility] [address] [place] [address] Nataliya Vieyra PA-C [facility] [place] [address] 10/28/2024 2:30 PM EDT Cardiac Studies Cardiac Studies, [facility] 132 [facility] [place] [address] 12/11/2024 2:00 PM EDT Office Visit Dermatology [facility] [address] [place] [address] Jacky Arroyo MD [address] [place] [address] Scheduled Procedures Name Priority Associated Diagnoses Date/Ti [...] this encounter Medical Devices Implanted Type Area Cushion Mat Maker Device Identifier Shelf Expiration Date Model / Serial / Lot Graft Lyoplant 10.0x12.5cm 4x5 - [id number] - [id number] Implanted:Qty : 1 on 04/20/2022 by Prudencio Sung III, MD at [facility] Left: Head B JEFFERY : AESCULAP [id number] 09/26/2026 [id number] / [id number] / [id number] Mesh Ti Lo Mal Sm Arc 421.536 - [id number] Implanted:Qty : 1 on 04/20/2022 by Prudencio Sung III, MD [place] [facility] Left: Head SYNTHES MAXILLOFACIAL 421.536 / / Screw Ti Lo Pro Sd 4mm 400.834 - [id number] Implanted:Qty : 13 on 04/20/2022 by Prudencio Sung III, MD [place] [facility] Left: Head SYNTHES MAXILLOFACIAL 400.834 / / Cover Bur Hol Ti Lo 17 421.527 - [id number] Implanted:Qty : 4 on 04/20/2022 by Prudencio Sung III, MD at [place] [facility] Left: Head SYNTHES MAXILLOFACIAL 421.527 / / Cover [place] Hole 17mm 421.554 - [id number] Implanted:Qty : 1 on 04/20/2022 by Prudencio Sung III, MD at [place] [facility] Left: Head SYNTHES MAXILLOFACIAL 421.554 / / Valve Tavr Jayson 29mm - [id number] Implanted:Qty : 1 on 09/05/2022 by Alexis Crenshaw MD at CARDIAC [facility] [employer] [id number] 03/08/2023 [id number] / / documented as of this encounter Advance Directives Documents on File Type Date Recorded Patient Base Loader Expl anation Advance Directives and Living Will [...] Care Agent (per Health Care Power of Automotive Service Writer document) Care Teams Sliver Lapper Relationship Specialty Start Date End Date Jose Angel Weeks DO [address] [place] [address], [place] [address] PCP - General Internal Medicine 11/25/23 documented as of this encounter
--- OUTSIDE RECORDS SUMMARY | 2023-12-25 07:26 | External Medical Summary ---
Author Name Unknown Address Unknown Organization K01:LABORATORY [place] - [address] [facility] [place] [address] Laboratory Report Ordering Provider Test Date Status SHIV STEWART 12/23/2023 14:10:02 Final Observation Date Value Abnormality Reference (Units ) Status BUN 12/23/2023 14:10:02 53 Above high normal 6-20 (mg/dL) Final Creatinine 12/23/2023 14:10:02 0.9 0.6-1.2 (mg/dL) Final Glomerular filtration rate/1.73 sq M.predicted [Volume Rate/Area] in Serum, Plasma or Blood by Creatinine-based formula (CKD-EPI) 12/23/2023 14:10:02 84 >=60 (mL/min) Final eGFR is calculated based on the CKD-EPI 2020 equation. Sodium 12/23/2023 14:10:02 131 Below low normal 135 -146 (mmol/L) Final Potassium 12/23/2023 14:10:02 4.9 3.5-5.1 (m mol/L) Final Cl 12/23/2023 14:10:02 95 Below low normal 98- 107 (mmol/L) Final CO2 12/23/2023 14:10:02 31 22-32 (mmo l/L) Final Anion gap 12/23/2023 14:10:02 5 Below low normal 7-1 5 (mmol/L) Final Glucose 12/23/2023 14:10:02 102 70-120 (mg /dL) Final Albumin 12/23/2023 14:10:02 4.1 3.8-5.0 (g /dL) Final AST (Aspartate aminotransferase) 12/23/2023 14:10:02 14 10-50 (U/L) Fin al Alk Phos 12/23/2023 14:10:02 61 35-130 (U/ L) Final Bilirubin, Total 12/23/2023 14:10:02 0.5 <=1 .2 (mg/dL) Final Calcium 12/23/2023 14:10:02 9.2 8.4-10.2 ( mg/dL) Final Protein 12/23/2023 14:10:02 5.7 Below low normal 6.0 -8.3 (g/dL) Final ALT (Alanine aminotransferase) 12/23/2023 14:10:02 12 10-50 (U/L) Jian carney Performing Location LABORATORY [place] - [address] [facility] [address]
--- OUTSIDE RECORDS SUMMARY | 2023-12-25 07:26 | External Medical Summary ---
Author Name Unknown Address Unknown Organization K01:LABORATORY [place] [address] [facility] [address] Laboratory Report Ordering Provider Test Date Status SHIV STEWART 12/23/2023 14:10:02 Final Observation Date Value Abnormality Reference (Units ) Status WBC, Total 12/23/2023 14:10:02 5.41 4.00-10.80 (K/uL) Final RBC 12/23/2023 14:10:02 2.55 4.50-5.25 (M/uL) Final Hemoglobin 12/23/2023 14:10:02 9.1 Below low normal 14.0-16.8 (g/dL) Final HCT 12/23/2023 14:10:02 27.6 Below low normal 40.0-48.4 (%) Final MCV 12/23/2023 14:10:02 108.2 82.0-99.5 (fL) Final MCH 12/23/2023 14:10:02 35.7 27.0-34.0 (pg) Final MCHC 12/23/2023 14:10:02 33.0 32.0-36.0 (g/dL) Final RDW 12/23/2023 14:10:02 11.9 11.5-15.5 (%) Final Platelets 12/23/2023 14:10:02 88 Below low normal 140-400 (K/uL) Final MPV 12/23/2023 14:10:02 9.9 6.6-11.1 (fL) Final Nucleated erythrocytes/100 leukocytes [Ratio] in Blood by Automated count 12/23/2023 14:10:02 0 <=0 (/100 WBCs) Final Performing Location LAB[facility]ORY [facility] [place]. [facility] [address]
--- OUTSIDE RECORDS SUMMARY | 2023-12-25 07:26 | External Medical Summary | Summary of Care ---
Author Name Unknown Organization [facility] Address [address] [place] [address] Phone [phone] Care Team Providers Care Pole Maker Name Role Phone Jose Angel Weeks DO Primary Care Provider [phone] Reason for Visit * Reason Onset Date Comments Advice 12/23/2023 sweats Encounter Details Date Type Department Care Team (Late st Contact Info) Description 12/23/2023 Telephone Family Practice 65 [facility] [address] [place] [phone] Jose Angel Weeks DO [address] [place] [address] Advice (sweats) Allergies Active Allergy Reactions Criticality Noted Date Comments Ibuprofen 12/12/2013 Aspirin 07/03/2021 Other reaction(s): CANNOT TAKE DUE TO GASTRITIS Valdecoxib 03/03/2013 General ill feeling Celecoxib Other (Please comment) 08/27/2017 parts counterman use caused heart-burn Codeine 12/12/2022 Other Reaction(s): [...] 180 Tablet 3 05/20/2023 Active Nystatin-Triamcinol one 884918-0.1 UNIT/GM-% External Cream (Mycolog)Indication s:Chronic dermatitis APPLY [...] bioprosthesis 09/04/2022 Aortic ectasia 05/18/2022 Atherosclerosis of [place] 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 angina pectoris 05/18/2022 [...] mRNA, LNP-s, No Pre serve, 2-Dose Series (eXenSa) 08/02/2021,02/13/2021,07/28/2020,06/27 COVID-19, MRNA-LNP, 23-24, P F, 30 MCG/0.3 mL, 12 YRS AND ABOVE, IM (FreeCharge-Comirnaty) 02/12/2023 Covid-19, Mrna, Lnp-s, Pf, B ivalent, [...] Saturday and Saturday-using the treadmill.Was Admitted to [facility] 12/09-12/11 with TIA's. He was started on [...] PM EDT Nurse Only Family Practice [address] [place] [phone] College, Nurse Fam Prac [address] [address] 12/24/2023 11:20 AM EDT Office Visit Family Practice 65 [facility] 293 [place] [phone] Jose Angel Weeks, DO 293 [place] [address] 01/08/2024 12:40 PM EDT Office Visit Neurology [facility] [address] [place] [address] Marquita Herrera PA-C [address] [place] [address] 04/06/2024 2:00 PM EST Office Visit Family [facility] [address], [place] 293 [facility], [place] [address] Jose Angel Weeks, 293 [facility], [place] [address] 04/07/2024 10:00 AM EST Laboratory Laboratory [facility] [address] [place] [phone] [place] 200 [facility] [place] [address] 04/14/2024 2:15 PM EST Office Visit Hematology/Oncology [facility] [address] [place] [address] Edmar Meeks MD [address] [place] [address] 07/30/2024 1:30 PM EDT Office Visit Neurology [facility] [address] [place] [address] Nataliya Vieyra PA-C [facility] [place] [address] 10/28/2024 2:30 PM EDT Cardiac Studies Cardiac Studies, [facility] 132 [facility] [place] [address] 12/11/2024 2:00 PM EDT Office Visit Dermatology [facility] [address] [place] [address] Jacky Arroyo MD [address] [place] [address] Scheduled Procedures Name Priority Associated Diagnoses Date/Ti [...] this encounter Medical Devices Implanted Type Area Prosthetic Aide Device Identifier Shelf Expiration Date Model / Serial / Lot Graft Lyoplant 10.0x12.5cm 4x5 - [id number] - [id number] Implanted:Qty : 1 on 04/20/2022 by Prudencio Sung III, MD at [facility] Left: Head B JEFFERY : AESCULAP [id number] 09/26/2026 [id number] / [id number] / [id number] Mesh Ti Lo Mal Sm Arc 421.536 - [id number] Implanted:Qty : 1 on 04/20/2022 by Prudencio Sung III, MD at OR [facility] Left: Head SYNTHES MAXILLOFACIAL 421.536 / / Screw Ti Lo Pro Sd 4mm 400.834 - [id number] Implanted:Qty : 13 on 04/20/2022 by Prudencio Sung III, MD at OR [facility] Left: Head SYNTHES MAXILLOFACIAL 400.834 / / Cover Bur Hol Ti Lo 17 421.527 - [id number] Implanted:Qty : 4 on 04/20/2022 by Prudencio Sung III, MD at OR [facility] Left: Head SYNTHES MAXILLOFACIAL 421.527 / / Cover [place] Hole 17mm 421.554 - [id number] Implanted:Qty : 1 on 04/20/2022 by Prudencio Sung III, MD at OR [facility] Left: Head SYNTHES MAXILLOFACIAL 421.554 / / Valve Tavr Jayson 29mm - [id number] Implanted:Qty : 1 on 09/05/2022 by Alexis Crenshaw MD at CARDIAC LABS [facility] [employer] SHAHBAZ [id number] 03/08/2023 [id number] / / documented as of this encounter Advance Directives Documents on File Type Date Recorded Patient Associate Professor Of Musicology Expl anation Advance Directives and Living Will [...] 04/18/2022 7:23 PM 04/28/2022 5:35 PM This orde r reflects the patients wishes and were consensually agreed upon. Question Answer Comments Discussion of Advance Directives occurred with: Patient Healthcare Agents on File Name Relationship Healthcare Agent Relationshi p Communication Sujata Peterson Spouse First Alternate Health Care Agent (per Health Care Power of Treatment Plant Mechanic document) Care Teams Pole Maker Relationship Specialty Start Date End Date Jose Angel Weeks DO [address] [place] [address] PCP - General Internal Medicine 11/25/23 documented as of this encounter
--- OUTSIDE RECORDS SUMMARY | 2023-12-25 07:26 | External Medical Summary ---
Author Name Unknown Address Unknown Organization K01:LABORATORY [place] [address] [facility] [address] Laboratory Report Ordering Provider Test Date Status PATSHIV 12/23/2023 14:10:02 Final Observation Date Value Abnormality Reference (Units ) Status Retic, % (auto) 12/23/2023 14:10:02 2.68 Above high normal 0.80-1.90 (%) Final Reticulocytes, Absolute 12/23/2023 14:10:02 68.3 31.3-100.1 (K/uL) Final Reticulocyte fraction, immature 12/23/2023 14:10:02 15.9 2.5-20.6 (%) Final Reticulocyte HGB 12/23/2023 14:10:02 37.9 Above high normal 29.7-37.4 (pg) Final Performing Location [facility] [address] [facility] [address]
--- OUTSIDE RECORDS SUMMARY | 2023-12-25 07:26 | External Medical Summary | Summary of Care ---
Author Name Unknown Organization [facility] Address [address] [place] [address] Phone [phone] Care Team Providers Care Wafer Cleaner Name Role Phone Jose Angel Weeks DO Primary Care Provider [phone] Reason for Visit * Reason Onset Date Comments Test Results 12/10/2023 Encounter Details Date Type Department Care Team (Late st Contact Info) Description 12/10/2023 Telephone Cardiology, [facility] [address] [place] [address] Ashok Roger DO [address] [place] [address] Test Results Allergies Active Allergy Reactions Criticality Noted Date Comments Ibuprofen 12/12/2013 Aspirin 07/03/2021 Other reaction(s): CANNOT TAKE DUE TO GASTRITIS Valdecoxib 03/03/2013 General ill feeling Celecoxib Other (Please comment) 08/27/2017 remote computer terminal operator use caused heart-burn Codeine [...] as of this encounter (statuses as of 12/18/2023) Medications Medication Sig Dispensed Refills Start Date [...] 180 Tablet 3 05/20/2023 Active Nystatin-Triamcinol one 648880-6.1 UNIT/GM-% External Cream (Mycolog)Indication s:Chronic dermatitis APPLY [...] as of this encounter (statuses as of 12/18/2023) Active Problems Problem Noted Date Diagnosed Date Panic attacks 06/04/2023 Paroxysmal atrial fibrillation 01/29/2023 Obstructive sleep apnea of adult 01/29/2023 Status post transcatheter ao rtic valve replacement (TAVR) using bioprosthesis 09/04/2022 Aortic ectasia 05/18/2022 Atherosclerosis of [place] co 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 angina pectoris 05/18/2022 [...] as of this encounter (statuses as of 12/18/2023) Resolved Problems Problem Noted Date Diagnosed Date [...] as of this encounter (statuses as of 12/18/2023) Immunizations Name Administration Dates Next Due COVID-19 mRNA, LNP-s, No Pre serve, 2-Dose Series (Mount[employer]) 08/02/2021,02/13/2021,07/28/2020,06/27 COVID-19, MRNA-LNP, 23-24, P F, 30 MCG/0.3 mL, 12 YRS AND ABOVE, IM ([employer]-Comirnat) 02/12/2023 Covid-19, Mrna, Lnp-s, Pf, B ivalent, [...] No 12/13/2023 Does the household have a [facility] source of income? (Household - for ages [...] Telephone Encounter - Ashok Roger DO - 12/18/2023 2:11 PM EDT Updates noted, hospital record reviewed, chemistry panel results while hospitalized relatively stable without significant change. Ashok Roger DO * Telephone Encounter - Saima Walter CMA - 12/11/2023 11:32 AM EDT Attempted to contact patient by phone, but patient's answered his cell phone. She and the patient took the information from Dr. Roger's note regarding the results of his recent lab tests. Patient's spouse then went on to notify me that patient is currently admitted to [facility] for stroke-like symptoms. * Telephone Encounter - Ashok Roger DO - 12/10/2023 2:34 PM EDT Chemistry panel reveals relatively stable findings compared to 12 days ago. Sodium which is chronically low , is slightly improved. Cardio nursing: please let pt know things are better Continue present treatment. Ashok Roger DO documented in this encounter Plan of Treatment Upcoming Encounters Date Type Department Care Team (Late st Contact Info) Description 12/24/2023 11:20 AM EDT Office Visit [address] [place] [address] Jose [facility]eks DO [facility] [address] 01/08/2024 12:40 PM EDT Office Visit Neurology [address] [place] [address] [place] [address] Marquita Herrera PA-C [address] [place] [address] 04/06/2024 2:00 PM EST Office Visit [address] 293 [place] [address] Jose Angel Weeks, DO [address] [place] [address] 04/07/2024 10:00 AM EST Laboratory Laboratory [facility] [address] [place] [phone] [facility] 200 [facility] [place] [address] 04/14/2024 2:15 PM EST Office Visit Hematology/Oncology [facility] 200 [facility] [place] [address] Edmar Meeks MD 200 [facility] [place] [address] 07/30/2024 1:30 PM EDT Office Visit Neurology [facility] 200 [facility] [place] [address] Nataliya Vieyra PA-C 21 [place] [address] 10/28/2024 2:30 PM EDT Cardiac Studies Cardiac Studies, [facility] [address] [place] [address] 12/11/2024 2:00 PM EDT Office Visit Dermatology [facility] 200 [facility] [place] [address] Jacky Arroyo MD 200 [facility] [place] [address] Scheduled Procedures Name Priority Associated Diagnoses Date/Ti [...] this encounter Medical Devices Implanted Type Area Fruit I Farmworker Device Identifier Shelf Expiration Date Model / Serial / Lot Graft Lyoplant 10.0x12.5cm 4x5 - [id number] - [id number] Implanted:Qty : 1 on 04/20/2022 by Prudencio Sung III, MD at OR [facility] Left: Head B JEFFERY : AESCULAP [id number] 09/26/2026 [id number] / [id number] / [id number] Mesh Ti Lo Mal Sm Arc 421.536 - [id number] Implanted:Qty : 1 on 04/20/2022 by Prudencio Sung III, MD at OR [facility] Left: Head SYNTHES MAXILLOFACIAL 421.536 / / Screw Ti Lo Pro Sd 4mm 400.834 - [id number] Implanted:Qty : 13 on 04/20/2022 by Prudencio Sung III, MD at OR [facility] Left: Head SYNTHES MAXILLOFACIAL 400.834 / / Cover Bur Hol Ti Lo 17 421.527 - [id number] Implanted:Qty : 4 on 04/20/2022 by Prudencio Sung III, MD at OR [facility] Left: Head SYNTHES MAXILLOFACIAL 421.527 / / Cover [place] 17mm 421.554 - [id number] Implanted:Qty : 1 on 04/20/2022 by Prudencio Sung III, MD at OR [facility] Left: Head SYNTHES MAXILLOFACIAL 421.554 / / Valve Tavr Jayson 29mm - [id number] Implanted:Qty : 1 on 09/05/2022 by Alexis Crenshaw MD at CARDIAC LABS [facility] [employer] [id number] 03/08/2023 [id number] / / documented as of this encounter Advance Directives Documents on File Type Date Recorded Patient Sweeper Driver Expl anation Advance Directives and Living [...] Care Agent (per Health Care Power of Merchandising Assistant document) Care Teams Wafer Cleaner Relationship Specialty Start Date End Date Jose Angel Weeks DO 293 [place] [address] PCP - General Internal Medicine 11/25/23 documented as of this encounter
--- OUTSIDE RECORDS SUMMARY | 2023-12-25 07:26 | External Medical Summary ---
Author Name Unknown Address Unknown Organization K01:[facility] [place] [address] [facility] [address] Laboratory Report Ordering Provider Test Date Status SHIV STEWART 12/23/2023 14:10:02 Final Observation Date Value Abnormality Reference (Units ) Status Iron 12/23/2023 14:10:02 128 45-176 (ug /dL) Final Iron-binding capacity 12/23/2023 14:10:02 339 250-425 (ug/dL) Final Transferrin Sat % 12/23/2023 14:10:02 38 15 -55 (%) Final Performing Location [facility] [place] [facility] [address] [facility] [address]
--- OUTSIDE RECORDS SUMMARY | 2023-12-25 07:26 | External Medical Summary ---
Author Name Unknown Address Unknown Organization K01:LABORATORY [facility] - [address] [facility] [address] [place] [address] Laboratory Report Ordering Provider Test Date Status SHIV STEWART 12/23/2023 14:10:02 Final Observation Date Value Abnormality Reference (Units ) Status LDH 12/23/2023 14:10:02 143 <=250 (U/L ) Final Performing Location LAB[facility]ATORY [facility] - [address] [place] [address]
--- OUTSIDE RECORDS SUMMARY | 2023-12-25 07:27 | External Medical Summary | Summary of Care ---
Author Name Unknown Organization [facility] Address [address] [place] [address] Phone [phone] Care Team Providers Care Oracle Bpm Consultant Name Role Phone MickyJose Angel DO Primary Care Provider [phone] Encounter Details Date Type Department Care Team (Late st Contact Info) Description 12/13/2023 Population Health External Data Unspecified Department Allergies Active Allergy Reactions Criticality Noted Date Comments Ibuprofen 12/12/2013 Aspirin 07/03/2021 Other reaction(s): CANNOT TAKE DUE TO GASTRITIS Valdecoxib 03/03/2013 General ill feeling Celecoxib Other (Please comment) 08/27/2017 watermaster use caused heart-burn Codeine 12/12/2022 Other Reaction(s): [...] as of this encounter (statuses as of 12/13/2023) Medications Medication Sig Dispensed Refills Start Date [...] 180 Tablet 3 05/20/2023 Active Nystatin-Triamcinol one 637417-4.1 UNIT/GM-% External Cream (Mycolog)Indication s:Chronic dermatitis APPLY [...] as of this encounter (statuses as of 12/13/2023) Active Problems Problem Noted Date Diagnosed Date Panic attacks 06/04/2023 Paroxysmal atrial fibrillation 01/29/2023 Obstructive sleep apnea of adult 01/29/2023 Status post transcatheter ao rtic valve replacement (TAVR) using bioprosthesis 09/04/2022 Aortic ectasia 05/18/2022 Atherosclerosis of [place] co 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 angina pectoris 05/18/2022 [...] 09/12 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 History of compression fracture of spine 018 Overview: Winter , T10, L5 - traumatic 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 leg, recurrent Diastolic dysfunction 07/06/2016 Thrombocytopenia 06/05/2013 watermaster current use of anticoagulant therapy 0 10/21/2012 Overview: ICD-10 update of inactive term Insomnia Chronic rhinitis documented as of this encounter (statuses as of 12/13/2023) Resolved Problems Problem Noted Date Diagnosed Date [...] as of this encounter (statuses as of 12/13/2023) Immunizations Name Administration Dates Next Due COVID-19 mRNA, LNP-s, No Pre serve, 2-Dose Series ([employer]) 08/02/2021,02/13/2021,07/28/2020,06/27 COVID-19, MRNA-LNP, 23-24, P F, 30 MCG/0.3 mL, 12 YRS AND ABOVE, IM ([facility]) 02/12/2023 Covid-19, Mrna, Lnp-s, Pf, B ivalent, 30 Mcg, IM, 12 yrs and above ([employer]aero) 10/11/2022,01/30/2022 Pneumococcal Conjugate Vacc, 13 Valent (Prevnar) [...] Care Team (Late st Contact Info) Description 12/20/2023 9:40 AM EDT Pharmacy Family Practice 65 [facility] [address] College, Pharmacist [address] [address] 12/20/2023 10:00 AM EDT Office Visit Family Practice 65 [facility] 293 [place] [address] Jose Angel Weeks, DO 293 [place] [address] 12/24/2023 11:20 AM EDT Office Visit Family Practice 65 [facility] 293 [place] [address] Jose Angel Weeks, DO 293 [place] [address] 01/08/2024 12:40 PM EDT Office Visit Neurology [facility] [address] [place] [address] Marquita Herrera PA-C [address] [place] [address] 04/06/2024 2:00 PM EST Office Visit Family Practice 65 [facility] 293 [place] [address] Jose Angel Weeks, DO 293 [place] [address] 04/07/2024 10:00 AM EST Laboratory Laboratory [facility] [place] [address] [place] [phone] [facility] [address] [place], [place] [address] 04/14/2024 2:15 PM EST Office Visit Hematology/Oncology [facility] [place] [address] [place] [phone] Edmar Meeks MD [address] [place] [address] 07/30/2024 1:30 PM EDT [facility] [address] [place] [address] Nataliya Vieyra PA-C [address] [facility] [place] [address] 10/28/2024 2:30 PM EDT [facility] [address] [facility] [place] [id number] 12/11/2024 2:00 PM EDT Office Visit Dermatology [facility] 200 [facility] [place] [address] Jacky Arroyo MD [address] [place] [address] Scheduled Procedures Name Priority Associated Diagnoses Date/Ti [...] this encounter Medical Devices Implanted Type Area Institutional Nutrition Consultant Device Identifier Shelf Expiration Date Model / Serial / Lot Graft Lyoplant 10.0x12.5cm 4x5 - [id number] - [id number] Implanted:Qty : 1 on 04/20/2022 by Prudencio Sung III, [place] [facility] [place]: Head B JEFFERY : AESCULAP [id number] 09/26/2026 [id number] / [id number] Mesh Ti Lo Mal Sm Arc 421.536 - [id number] Implanted:Qty : 1 on 04/20/2022 by Prudencio Sung III, MD [place] [facility] Left: Head SYNTHES MAXILLOFACIAL 421.536 / / Screw Ti Lo Pro Sd 4mm 400.834 - [id number] Implanted:Qty : 13 on 04/20/2022 by Prudencio Sung III, MD [place] [facility] Left: Head SYNTHES MAXILLOFACIAL 400.834 / / Cover Bur Hol Ti Lo 17 421.527 - [id number] Implanted:Qty : 4 on 04/20/2022 by Prudencio Sung III, MD [place] [facility] Left: Head SYNTHES MAXILLOFACIAL 421.527 / / Cover [place] 17mm 421.554 - [id number] Implanted:Qty : 1 on 04/20/2022 by Prudencio Sung III, MD [place] [facility] Left: Head SYNTHES MAXILLOFACIAL 421.554 / / Valve Tavr Jayson 29mm - [id number] Implanted:Qty : 1 on 09/05/2022 by Alexis Crenshaw MD at CARDIAC LABS [facility] [employer]EL [employer] SHAHBAZ [id number] 03/08/2023 [id number] / / documented as of this encounter Advance Directives Documents on File Type Date Recorded Patient Natural Gas Technician Expl anation Advance Directives and Living [...] Name Relationship Healthcare Agent Relationshi p Communication Sujatabonny Peterson Spouse First Alternate Health Care Agent (per Health Care Power of Financial Aid Director document) Care Teams Oracle Bpm Consultant Relationship Specialty Start Date End Date Jose Angel Weeks DO [address] [place] [address] PCP - General Internal Medicine 11/25/23 documented as of this encounter
--- OUTSIDE RECORDS SUMMARY | 2023-12-25 07:27 | External Medical Summary | Summary of Care ---
Author Name Unknown Organization [facility] Address [address] [place] [address] Phone [phone] Care Team Providers Care Porcelain Finish Sprayer Name Role Phone Jose Angel Weeks DO Primary Care Provider Reason for Visit * Reason Onset Date Comments Advice 12/12/2023 Encounter Details Date Type Department Care Team (Late st Contact Info) Description 12/12/2023 Telephone Family Practice 65 [facility] [address] [place] [phone] Jose Angel Weeks DO [address] [place] [address] Advice Allergies Active Allergy Reactions Criticality Noted Date Comments Ibuprofen 12/12/2013 Aspirin 07/03/2021 Other reaction(s): CANNOT TAKE DUE TO GASTRITIS Valdecoxib 03/03/2013 General ill feeling Celecoxib Other (Please comment) 08/27/2017 FCI use caused heart-burn Codeine 12/12/2022 Other Reaction(s): [...] 180 Tablet 3 05/20/2023 Active Nystatin-Triamcinol one 729532-8.1 UNIT/GM-% External Cream (Mycolog)Indication s:Chronic dermatitis APPLY [...] bioprosthesis 09/04/2022 Aortic ectasia 05/18/2022 Atherosclerosis of [place] co 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 angina pectoris 05/18/2022 [...] leg, recurrent Diastolic dysfunction 07/06/2016 Thrombocytopenia 06/05/2013 oil heaterman current use of anticoagulant therapy 0 10/21/2012 [...] mRNA, LNP-s, No Pre serve, 2-Dose Series ([employer]) 08/02/2021,02/13/2021,07/28/2020,06/27 COVID-19, MRNA-LNP, 23-24, P F, 30 [...] encounter Miscellaneous Notes * Telephone Encounter - Svetlana Avila OSA - 12/16/2023 11:13 AM EDT Patient aware * Telephone Encounter - Jose Angel Weeks DO - 12/13/2023 1:06 PM EDT Hospital follow up visit on 12/23 is OK * Telephone Encounter - Aaliyah Clemente LPN - 12/13/2023 10:15 AM EDT Will forward to provider and case fitter. BRAVO will need to be done. /t * Telephone Encounter - Svetlana Guerra OSA - 12/12/2023 4:18 PM EDT Pt was scheduled with PCP for HD on 12.20.23 at 940. Pt states he is unable to make this appt as it is too early Pt was rescheduled in the next, mutually available, spot, 12.24.23 without a pharmacist med rec. Please advise if its ok for pt to wait until the for HD and if you prefer a phone med rec apptwith pharmacy or a nurse that day. Pt states he is only available in the afternoons. documented in this encounter Plan of Treatment Upcoming Encounters Date Type Department Care Team (Late st Contact Info) Description 12/24/2023 11:20 AM EDT Office Visit Family Practice [address] [place] [address] [facility] [place] [address] Jose [facility] [address] 01/08/2024 12:40 PM EDT Office Visit Neurology [facility] [place] [address] [place] [address] Marquita Herrera PA-C [address] [place] [address] 04/06/2024 2:00 PM EST Office Visit Family Practice 65 [facility] [place] 293 [facility], [place] [address] Jose Angel Weeks DO [address] [facility], [place] [address] 04/07/2024 10:00 AM EST [facility] [address] [place] [address] [place], [facility] [address] [facility] [place] [address] 04/14/2024 2:15 PM EST Office Visit [facility]ology[facility] [address] [place] [phone] Edmar Meeks MD 200 [facility] [place] [address] 07/30/2024 1:30 PM EDT [facility] [address] [place] [address] Nataliya Vieyra PA-C [address] [place] [address] 10/28/2024 2:30 PM EDT Cardiac Studies Cardiac Studies, [facility] [address] [facility] [place] [address] 12/11/2024 2:00 PM EDT Office [facility] [address] [place] [address] Jacky Arroyo MD 200 [facility] [place] [address] Scheduled Procedures Name Priority Associated Diagnoses Date/Ti [...] this encounter Medical Devices Implanted Type Area Corner Bead Operator Device Identifier Shelf Expiration Date Model / Serial / Lot Graft Lyoplant 10.0x12.5cm 4x5 - [id number] - [id number] Implanted:Qty : 1 on 04/20/2022 by Prudencio Sung III, MD [place] [facility] Left: Head B JEFFERY : AESCULAP [id number] 09/26/2026 [id number] / [id number] / [id number] Mesh Ti Lo Mal Sm Arc 421.536 - [id number] Implanted:Qty : 1 on 04/20/2022 by Prudencio Sung III, MD at [place] [facility] Left: Head SYNTHES MAXILLOFACIAL 421.536 / / Screw Ti Lo Pro Sd 4mm 400.834 - [id number] Implanted:Qty : 13 on 04/20/2022 by Prudencio Sung III, MD at [place] [facility] Left: Head SYNTHES MAXILLOFACIAL 400.834 / / Cover Bur Hol Ti Lo 17 421.527 - [id number] Implanted:Qty : 4 on 04/20/2022 by Prudencio Sung III, MD at [place] [facility] Left: Head SYNTHES MAXILLOFACIAL 421.527 / / Cover Adilene Hole 17mm 421.554 - [id number] Implanted:Qty : 1 on 04/20/2022 by Prudencio Sung III, MD at [place] [facility] Left: Head SYNTHES MAXILLOFACIAL 421.554 / / Valve Tavr Jayson 29mm - [id number] Implanted:Qty : 1 on 09/05/2022 by Alexis Crenshaw MD at CARDIAC LABS [facility] [employer] SHAH[employer]Z [id number] 03/08/2023 [id number] / / documented as of this encounter Advance Directives Documents on File Type Date Recorded Patient Size Painter Expl anation Advance Directives and Living Will [...] Care Agent (per Health Care Power of Line Cook document) Care Teams Porcelain Finish Sprayer Relationship Specialty Start Date End Date Jose Angel Weeks DO [address] [place] [address] PCP - General Internal Medicine 11/25/23 documented as of this encounter
--- OUTSIDE RECORDS SUMMARY | 2023-12-25 07:27 | External Medical Summary | Summary of Care ---
Author Name Unknown Organization [facility] Address [address] [place] [address] Phone [phone] Care Team Providers Care Carpenter Assistant Name Role Phone MickyJose Angel DO Primary Care Provider [phone] Encounter Details Date Type Department Care Team (Late st Contact Info) Description 12/12/2023 Result Scan Unspecified Department <No scans attached> Allergies Active Allergy Reactions Criticality Noted Date Comments Ibuprofen 12/12/2013 Aspirin 07/03/2021 Other reaction(s): CANNOT TAKE DUE TO GASTRITIS Valdecoxib 03/03/2013 General ill feeling Celecoxib Other (Please comment) 08/27/2017 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 Codeine 12/12/2022 Other Reaction(s): [...] 180 Tablet 3 05/20/2023 Active Nystatin-Triamcinol one 250443-0.1 UNIT/GM-% External Cream (Mycolog)Indication s:Chronic dermatitis APPLY [...] bioprosthesis 09/04/2022 Aortic ectasia 05/18/2022 Atherosclerosis of [place] co 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 angina pectoris 05/18/2022 [...] leg, recurrent Diastolic dysfunction 07/06/2016 Thrombocytopenia 06/05/2013 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 0 10/21/2012 [...] mRNA, LNP-s, No Pre serve, 2-Dose Series ([employer]) 08/02/2021,02/13/2021,07/28/2020,06/27 COVID-19, MRNA-LNP, 23-24, P F, 30 MCG/0.3 mL, 12 YRS AND ABOVE, IM ([employer] [facility]) 02/12/2023 Covid-19, Mrna, Lnp-s, Pf, B [...] 9:40 AM EDT Pharmacy Family Practice 65 [facility] 293 [facility] [place] [address] College, Pharmacist [address] [address] 12/20/2023 10:00 AM EDT Office Visit Family Practice 65 [facility] 293 [facility] [place] [address] Jose Angel Weeks, DO 293 [facility] [address] 12/24/2023 11:20 AM EDT Office Visit Family Practice 65 [facility] 293 [facility] [place] [address] Jose Angel Weeks, DO 293 [place] [address] 01/08/2024 12:40 PM EDT Office [facility] [address] [place], [place] [address] Marquita Herrera PA-C [address] [place], [place] [address] 04/06/2024 2:00 PM EST Office Visit Family Practice 65 [facility] 293 [facility] [place] [address] Jose Angel Weeks, DO [address] [place] [address] 04/07/2024 10:00 AM EST Laboratory [facility] [address] [place], [place] [phone] [place], [facility] [address] [place], [place] [address] 04/14/2024 2:15 PM EST Office Visit [facility]ology[facility] [address] [place], [place] [phone] Edmar Meeks MD [address] [place], [place] [address] 07/30/2024 1:30 PM EDT Office Visit [facility] [address] [place] [address] Nataliya Vieyra PA-C 21 [facility] [place] [address] 10/28/2024 2:30 PM EDT Cardiac Studies Cardiac Studies, [facility] [address] [facility] [place] [address] 12/11/2024 2:00 PM EDT Office Visit [facility] 200 [facility] [place] [address] Jacyk Arroyo MD 200 [facility] [place] [address] Scheduled Procedures Name Priority Associated Diagnoses Date/Ti [...] this encounter Medical Devices Implanted Type Area Cigarette Machine Filler Device Identifier Shelf Expiration Date Model / Serial / Lot Graft Lyoplant 10.0x12.5cm 4x5 - [id number] - [id number] Implanted:Qty : 1 on 04/20/2022 by Prudencio Sung III, MD at OR [facility] Left: Head B JEFFERY : AESCULAP [id number] 09/26/2026 [id number] / [id number] / [id number] Mesh Ti Lo Mal Sm Arc 421.536 - [id number] Implanted:Qty : 1 on 04/20/2022 by Prudencio Sung III, MD at OR [facility] Left: Head SYNTHES MAXILLOFACIAL 421.536 / / Screw Ti Lo Pro Sd 4mm 400.834 - [id number] Implanted:Qty : 13 on 04/20/2022 by Prudencio Sung III, MD at OR [facility] Left: Head SYNTHES MAXILLOFACIAL 400.834 / / Cover Bur Hol Ti Lo 17 421.527 - [id number] Implanted:Qty : 4 on 04/20/2022 by Prudencio Sung III, MD at OR [facility] Left: Head SYNTHES MAXILLOFACIAL 421.527 / / Cover Warba Hole 17mm 421.554 - [id number] Implanted:Qty : 1 on 04/20/2022 by Prudencio Sung III, MD at OR [facility] Left: Head SYNTHES MAXILLOFACIAL 421.554 / / Valve Tavr Jayson 29mm - [id number] Implanted:Qty : 1 on 09/05/2022 by Alexis Crenshaw MD at CARDIAC LABS [facility] [employer] SHAHBAZ [id number] 03/08/2023 [id number] / / documented as of this encounter Procedures Procedure Name Priority Date/Time Associated Diagnosis Comments RADIOLOGY SCANNED RESULT 12/12/2023 documented in this encounter Results * RADIOLOGY SCANNED RESULT (12/12/2023) 12/12/2023 No Physician Data Unknown DIAGNOSTIC RAD IOLOGY SERVICES documented in this encounter Advance Directives Documents on File Type Date Recorded Patient Hospital Tray Service Worker Expl anation Advance Directives and Living Will [...] Care Agent (per Health Care Power of Car Driver document) Care Teams Carpenter Assistant Relationship Specialty Start Date End Date Jose Angel Weeks DO [address] [place] [address] PCP - General Internal Medicine 11/25/23 documented as of this encounter
[2023-12-25 07:35] LABS: BUN Creatinine Ratio 32.4 (10-20); Calcium 8.5 mg/dl (8.6-10.3); Est GFR (African American) 103.8 ml/min; Est GFR (Non-African American) 89.6 ml/min; Magnesium 1.9 mg/dl (1.7-2.4); Phosphorus 3.1 mg/dl (2.5-4.9)
[2023-12-25] MEDS: FLUTICASONE PROPIONATE NA SPR 16 GM BTL NAE SCH (09:29)
[2023-12-25] MEDS: LIFITEGRAST 1 EACH DROPERETTE OP SCH (09:29)
[2023-12-25] MEDS: FOLIC ACID 1 MG TAB PO SCH (09:39)
--- NOTE | 2023-12-25 09:52 | Gastrointestinal Consultation ---
Date of Consultation December 25, 2023 Assessment & Plan (1) Symptomatic anemia: (2) Acute gastrointestinal bleeding: Plan Patient is an 83 year old male who presented to the ED with complaints of melena x 5 days. He had positive stool Hemoccult testing as an outpatient. Last dose of eliquis the morning of 12/23. I had discussed the case with Dr. Uriostegui who helped advise on plan. - continue with PPI drip. - will plan for EGD tomorrow since last dose of eliquis was done 12/23 in the morning. - monitor hgb/hct and transfuse as needed. - okay for clears today. will make NPO at midnight. Supervising Physician Co-Signing Physician Notes I saw and examined this patient with our nurse practitioner and agree with her assessment and plan. Clinical presentation consistent with an upper GI bleed. Differential includes peptic ulcer disease, esophagitis, gastritis. Less likely neoplasm doubt varices without history of liver disease. Continue PPI proceed with endoscopy in am. History of Present Illness Reason for Consultation: melena Requesting Physician: Debbie PAVON Attending Physician: Shavonne Pinon MD History of Present Illness Patient is an 83 year old male with a past medical history of chronic hyponatremia, REENA nontolerant of CPAP, mild ascending aortic dilatation, history of recurrent DVT, paroxysmal atrial fibrillation on Eliquis, diastolic dysfunction, aortic stenosis s/p TAVR, history of CAD, history of compression fracture of spine, osteoarthritis, history of chronic thrombocytopenia, BPH, history of panic attacks, history of fall with subdural hematoma s/p craniotomy (March 2022) who presented to the ED for evaluation secondary to black stools since Saturday (12/19) last week. He was sent here by his PCP after having a positive fecal occult blood test in the outpatient setting. Last dose of Eliquis was the morning of 12/23. Since admission, he has not had further bowel movements. He tells me that when symptoms started he was having acid reflux in the days prior, as well as nausea, and epigastric pain he rates 3/10 but he is unable to describe beyond it being "a pain". no nsaid use. He has his last EGD in 2020 showing esophagitis, gastritis, gastric polyps, and duodenitis. he had colonoscopy in 2020 showing internal hemorrhoids. Allergies Allergy/AdvReac Type Severity Reaction Status Date / Time aspirin AdvReac Unknown CANNOT Verified 08/14/23 15:48 TAKE DUE TO GASTRITIS celecoxib AdvReac Unknown USP Verified 08/14/23 15:48 USE CAUSED SEVERE HEARTBURN codeine AdvReac Unknown GENERAL Verified 08/14/23 15:48 ILL FEELING enoxaparin [From Lovenox] AdvReac Unknown thrombocyto Verified 08/14/23 15:48 penia finasteride AdvReac Unknown CAUSED Verified 08/14/23 15:48 GASTRITIS garlic AdvReac Unknown stomach Verified 08/14/23 15:48 cramp, diarrhea heparin AdvReac Unknown "not to be Verified 08/14/23 15:48 used with Eliquis" per pt hydrocodone AdvReac Unknown vomiting Verified 08/14/23 15:48 hydromorphone [From Dilaudid] AdvReac Unknown constipatio Verified 08/14/23 15:48 n ibuprofen AdvReac Unknown CANNOT Verified 08/14/23 15:48 TAKE DUE TO GASTRITIS lidocaine AdvReac Unknown lidocaine Verified 08/14/23 15:48 patch --> sinus infection loratadine AdvReac Unknown RACING Verified 08/14/23 15:48 HEART onion AdvReac Unknown upset Verified 08/14/23 15:48 stomach/diarrhea oxycodone AdvReac Unknown "KNOCKS ME Verified 08/14/23 15:48 OUT" pseudoephedrine AdvReac Unknown RACING Verified 08/14/23 15:48 HEART rofecoxib AdvReac Unknown GENERAL Verified 08/14/23 15:48 ILL FEELING valdecoxib AdvReac Unknown GENERAL Verified 08/14/23 15:48 ILL FEELING Home Medications Medication Instructions Recorded Confirmed Type cyanocobalamin (vitamin B-12) 500 500 mcg PO QAM 04/01/20 12/24/23 History mcg tablet acetaminophen 500 mg tablet 1,000 mg PO Q8 PRN mild/moderate 06/15/20 12/24/23 History pain cholecalciferol (vitamin D3) 10 400 unit PO QAM 06/15/20 12/24/23 History mcg (400 unit) tablet (Vitamin D3) fluticasone propionate 50 2 spray intranasal QAM 06/15/20 12/24/23 History mcg/actuation nasal spray,suspension (Flonase Allergy Relief) lifitegrast 5 % eye drops in a 1 drp OPB BID 06/15/20 12/24/23 History dropperette (Xiidra) psyllium 2 tsp PO BID 11/28/20 12/24/23 History apixaban 5 mg tablet (Eliquis) 5 mg PO BID 12/12/22 12/24/23 History folic acid 1 mg tablet 1 mg PO QAM 02/01/23 12/24/23 History metoprolol tartrate 50 mg tablet 50 mg PO BID 02/01/23 12/24/23 History dextran 70-hypromellose (PF) 0.1 1 drp ophthalmic (eye) HS 12/10/23 12/24/23 History %-0.3 % eye drops in a dropperette (Artificial Tears (PF)) loratadine 10 mg disintegrating 10 mg PO DAILY PRN allergies 12/10/23 12/24/23 History tablet (Alavert) atorvastatin 20 mg tablet 20 mg PO PM #30 tabs 12/12/23 12/24/23 Rx Patient History Medical History Paroxysmal atrial fibrillation on Eliquis Subdural hematoma 03/2022, follows with [facility] neuro Hearing loss s/p hearing aids bilat History of blood transfusion alejandra-operatively 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 Roger History of duodenal ulcer MAY 2020 - RESOLVED History of gastritis Lumbar spinal stenosis Pt unable to stand > 15 min in same space per PAT RN call Injury of right hip multiple times -- treated with physical therapy Deep vein thrombosis x2 both DVT Right leg s/p shoulder surgery and the other after extended driving. Eliquis. (2004 & 2006) SCC (squamous cell carcinoma) s/p excision BCC (basal cell carcinoma) s/p excision Sleep apnea not currently on treatment Thrombocytopenia per [facility] heme onc, usual range 100,000-110,000-pre-op 01/2023: 87,000 On anticoagulant therapy Anemia monitoring per [facility] heme/onc Spinal fracture 2009 (L5 & L10 & L12) s/p fall Gout last flare yrs ago PSVT (paroxysmal supraventricular tachycardia) ~0042-2552, treated in state [place]. no problems since 2012. Surgical History History of cardiac cath Feb 2022 > [place] > no stents Hx of hernia repair Right Open Inguinal Hernia Repair with Mesh H/O aortic valve repair August 2022 > [place] Brain bleed subdural hematoma-hospitalized at [place] Mar 2022 > due to a fall > surgical repair > was in ICU 11 days > Coumadin had been DC'ed was off thinner for a while, now on Eliquis History of esophagogastroduodenoscopy (EGD) History of cataract surgery bilateral History of cholecystectomy History of colonoscopy Status post Mohs surgery HX History of surgical removal of skin lesion H/O shoulder surgery bilateral Family History Father Heart disease Brother Heart disease Cancer Leukemia Social History Smoking Status: Unknown if ever smoked Second Hand Exposure: No; Do You Dip or Chew Tobacco: No; Hx Alcohol Use: No Hx Substance Use: No Preferred Language: [place] Communication Ability: Effective Day Care Center Director Required: No Beliefs That Will Affect Care: None marital status: Current Living Situation: Family current occupational status: retired Feels Safe at Home: Yes Diet: regular Assistive Devices: Cane and Walker Review of Systems Review of Systems: All systems reviewed & are unremarkable except as noted in HPI & below Physical Exam Constitutional: WD/WN, vitals as above Respiratory: normal respiratory effort, lungs clear to auscultation Cardiovascular: Rate/Rhythm: regular rate and regular rhythm Gastrointestinal (Abdomen): normal bowel sounds, soft, nontender, no hepatosplenomegaly Psychiatric: Orientation: alert and oriented x 3 Results & Data Vital Signs (Past 12 Hours) Vital Signs Temp Pulse Pulse Resp BP BP Pulse Ox 12/25/23 07:27 98.4 F 69 18 107/51 L 94 12/25/23 05:11 72 12/25/23 04:44 97.7 F 69 18 120/65 96 12/25/23 03:00 77 18 117/53 L 95 12/25/23 01:56 63 19 169/74 H 96 12/25/23 00:12 97.7 F 83 18 96 12/24/23 23:37 12/24/23 23:37 08/27/24 23:36 74 19 121/61 96 12/24/23 22:10 98.2 F 74 19 133/70 99 12/24/23 22:10 98.1 F 72 21 123/86 99 Pulse Ox O2 Del Method O2 Del Method O2 Flow Rate 12/25/23 07:27 Room Air 12/25/23 05:11 12/25/23 04:44 Room Air 12/25/23 03:00 12/25/23 01:56 Room Air 12/25/23 00:12 Room Air 12/24/23 23:37 97 Room Air 12/24/23 23:37 96 Room Air 12/24/23 23:36 Room Air 12/24/23 22:10 0 12/24/23 22:10 0 Laboratory Results Laboratory Results - last 48 hr 12/24/23 12/24/23 12/24/23 16:08 16:14 16:35 WBC 5.32 RBC 2.35 L Hgb 8.0 L Hct 24.3 L MCV 103.4 H MCH 34.0 MCHC 32.9 RDW Std Deviation 44.5 RDW Coeff of Jaleel 11.9 Plt Count 88 L MPV 9.5 PT 11.8 INR 1.1 APTT 26 PTT Ratio 1.0 Sodium 131 L Potassium 4.2 Chloride 96 L Carbon Dioxide 32 Anion Gap 3 BUN 36 H Creatinine 0.87 Est Cr Clr Drug Dosing 68.8 Est GFR ( Amer) 93.8 Est GFR (Non-Af Amer) 80.9 BUN/Creatinine Ratio 41.4 H Glucose 112 H Calcium 8.9 Phosphorus Magnesium Total Bilirubin 0.6 AST 12 L ALT 8 Alkaline Phosphatase 50 Troponin I High Sens 13.9 Total Protein 6.2 Albumin 4.0 Globulin 2.2 L Albumin/Globulin Ratio 1.8 Urine Color Yellow Urine Appearance Clear Urine pH 5.5 Ur Specific [place] 1.013 Urine Protein Negative Urine Glucose (UA) Negative Urine Ketones Negative Urine Blood Negative Urine Nitrite Negative Urine Bilirubin Negative Urine Urobilinogen Negative Ur Leukocyte Esterase Negative Blood Type O Positive Antibody Screen NEGATIVE Crossmatch See Detail 12/25/23 12/25/23 00:01 06:20 WBC 4.52 L RBC 2.34 L Hgb 8.1 L 7.9 L Hct 24.1 L 23.4 L MCV 100.0 MCH 33.8 MCHC 33.8 RDW Std Deviation 47.6 H RDW Coeff of Jaleel 13.2 Plt Count 66 L MPV 9.4 PT INR APTT PTT Ratio Sodium 134 L Potassium 4.0 Chloride 100 Carbon Dioxide 32 Anion Gap 2 L BUN 22 Creatinine 0.68 Est Cr Clr Drug Dosing 88.0 Est GFR ( Amer) 103.8 Est GFR (Non-Af Amer) 89.6 BUN/Creatinine Ratio 32.4 H Glucose 111 H Calcium 8.5 L Phosphorus 3.1 Magnesium 1.9 Total Bilirubin AST ALT Alkaline Phosphatase Troponin I High Sens Total Protein Albumin Globulin Albumin/Globulin Ratio Urine Color Urine Appearance Urine pH Ur Specific [place] Urine Protein Urine Glucose (UA) Urine Ketones Urine Blood Urine Nitrite Urine Bilirubin Urine Urobilinogen Ur Leukocyte Esterase Blood Type Antibody Screen Crossmatch Coding Level of Care Code 30989 INT INP/OBS CARE MIN Diagnoses Symptomatic anemia D64.9 Acute gastrointestinal bleeding K92.2
[2023-12-25] MEDS: LORATADINE 10 MG TAB PO PRN (10:25)
--- OUTSIDE RECORDS SUMMARY | 2023-12-25 10:30 | External Medical Summary | Summary of Care ---
Author Name Unknown Organization [facility] Address [address] [place] [address] Phone [phone] Care Team Providers Care Office Helper Name Role Phone Jose Angel Weeks DO Primary Care Provider [phone] Reason for Visit * Reason Onset Date Comments Appointment 12/24/2023 Colonoscopy/EGD Encounter Details Date Type Department Care Team (Late st Contact Info) Description 12/24/2023 Telephone Family Practice 65 [facility] [address] [place] [address] Jose Angel Weeks DO 293 [place] [address] Appointment (Colonoscopy/EGD) Allergies Active Allergy Reactions Criticality Noted Date [...] 180 Tablet 3 05/20/2023 Active Nystatin-Triamcino lone 629634-1.1 UNIT/GM-% External Cream (Mycolog)Indicatio ns:Chronic dermatitis APPLY TOPICALLY NEEDED DIRECTED BY PHYSICIAN, uses in groin 30 g 2 11/04/2023 Active Folic Acid 1 MG Oral Tablet Take 1 Tablet by mouth in the morning. In the morning.. 90 Tablet 3 12/02/2023 Active Atorvastatin Calcium 20 MG Oral Tablet (Lipitor) Take 1 Tablet by mouth every morning. Takes 1 tab once daily at dinner time Active Famotidine 40 MG Oral Tablet (Pepcid)Indication s:Gastrointestinal hemorrhage with melena Take 1 Tablet by mouth in the morning. 30 Tablet 3 12/24/2023 Active Apixaban 5 MG Oral Tablet (Eliquis)Indicatio ns:History of recurrent deep vein thrombosis (DVT) Take 1 Tablet by mouth in the morning and 1 Tablet before bedtime. 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 (Household - for ages [...] encounter Miscellaneous Notes * Telephone Encounter - Liz Sales RN - 12/24/2023 1:40 PM EDT We currently do not have any openings in our OR at [facility] to accommodate. If there is an immediate concern ,having the patient come to the ER at [facility] would be an option or is there anyway the patient could be scheduled at [facility] given his geographical location? Thanks, Liz Sales RN * Telephone Encounter - Sonal An OSA - 12/24/2023 1:31 PM EDT Pt needs OR per anesthesia. Please review as Dr. Weeks is asking for colon/EGD this week. Thank you. * Telephone Encounter - Sonal An OSA - 12/24/2023 12:16 PM EDT Checking with PAT if pt can be done at . * Telephone Encounter - Svetlana Avila OSA - 12/24/2023 12:08 PM EDT COLONOSCOPY, GI REFERRAL OP UPPER ENDOSCOPY GI REFERRAL OP Gastrointestinal hemorrhage with melena [K92.1] - Primary Iron deficiency anemia due to chronic blood loss [D50.0] Dr Weeks wants this week Is on blood thinners and sleep apnea,.. not using mask documented in this encounter Plan of Treatment Upcoming Encounters Date Type Department Care Team (Late st Contact Info) Description 12/27/2023 1:40 PM EDT Office Visit Family Practice [address] [place] [address] [place] [address] Jose Angel Weeks, [facility] [address] 01/08/2024 12:40 PM EDT Office Visit Neurology [facility] [address] [place], [place] [address] Marquita Herrera PA-C [address] [place] [address] 04/06/2024 2:00 PM EST Office Visit Family Practice [address] [place] [address] 293 [place] [address] Jose Angel Weeks, 293 [place] [address] 04/07/2024 10:00 AM EST Laboratory Laboratory [facility] [address] [place] [address] Nettie, Lab [facility] [address] [place], [place] [address] 04/14/2024 2:15 PM EST Office Visit Hematology/Oncology [facility] [address] [place], [place] [phone] Edmar Meeks MD [address] [place], [place] [address] 07/30/2024 1:30 PM EDT Office Visit Neurology [facility] [address] [place], [place] [address] Nataliya Vieyra PA-C [address] [place] [address] 10/28/2024 2:30 PM EDT Cardiac Studies Card[facility] Studies, [facility] [address] [facility] [place] [address] 12/11/2024 2:00 PM EDT Office Visit Dermatology [facility] [address] [place], [place] [address] Jacky Arroyo MD [address] [place] [address] Scheduled Procedures Name Priority Associated Diagnoses Date/Ti [...] this encounter Medical Devices Implanted Type Area Public Health Sanitarian Device Identifier Shelf Expiration Date Model / Serial / Lot Graft Lyoplant 10.0x12.5cm 4x5 - [id number] - [id number] Implanted:Qty : 1 on 04/20/2022 by Prudencio Sung III, MD at [facility] Left: Head B JEFFERY : JAVIER [id number] 09/26/2026 [id number] / [id number] / [id number] Mesh Ti Lo Mal Sm Arc 421.536 - [id number] Implanted:Qty : 1 on 04/20/2022 by Prudencio Sung III, MD at [place] [facility] Left: Head SYNTHES MAXILLOFACIAL 421.536 / / Screw Ti Lo Pro Sd 4mm 400.834 - [id number] Implanted:Qty : 13 on 04/20/2022 by Prudencio Sung III, MD at [place] [facility] Left: Head SYNTHES MAXILLOFACIAL 400.834 / / Cover [place] Ti Lo 17 421.527 - [id number] Implanted:Qty : 4 on 04/20/2022 by Prudencio Sung III, MD at [place] [facility] Left: Head SYNTHES MAXILLOFACIAL 421.527 / / Cover [place] Hole 17mm 421.554 - [id number] Implanted:Qty : 1 on 04/20/2022 by Prudencio Sung III, MD at [place] [facility] Left: Head SYNTHES MAXILLOFACIAL 421.554 / / Valve Tavr Jayson 29mm - [id number] Implanted:Qty : 1 on 09/05/2022 by Alexis Crenshaw MD at [facility] [employer] [id number] 03/08/2023 [id number] / / documented as of this encounter Advance Directives Documents on File Type Date Recorded Patient Pelletizer Tender Expl anation Advance Directives and Living Will [...] Care Agent (per Health Care Power of Finish Machine Tender document) Care Teams Office Helper Relationship Specialty Start Date End Date Jose Angel Weeks DO [address] [place] [facility] [place] [address] PCP - General Internal Medicine 11/25/23 documented as of this encounter
[2023-12-25] MEDS: ACETAMINOPHEN 1,000 MG/100 ML VIAL IV PRN (10:31)
--- OUTSIDE RECORDS SUMMARY | 2023-12-25 10:31 | External Medical Summary | Summary of Care ---
Author Name Unknown Organization [facility] Address [address] [place] [address] Phone [phone] Care Team Providers Care Marketing Planning Manager Name Role Phone Jose Angel Weeks DO Primary Care Provider [phone] Reason for Visit * Reason Onset Date Comments Appointment 12/24/2023 Colonoscopy/EGD Encounter Details Date Type Department Care Team (Late st Contact Info) Description 12/24/2023 Telephone Family Practice 65 [facility] [address] [place] [address] Jose Angel Weeks DO [address] [place] [address] Appointment (Colonoscopy/EGD) Allergies Active Allergy Reactions Criticality Noted Date Comments Ibuprofen 12/12/2013 Aspirin 07/03/2021 Other reaction(s): CANNOT TAKE DUE TO GASTRITIS Valdecoxib 03/03/2013 General ill feeling Celecoxib Other (Please comment) 08/27/2017 M[facility] use caused heart-burn Codeine 12/12/2022 Other Reaction(s): [...] 180 Tablet 3 05/20/2023 Active Nystatin-Triamcino lone 007550-4.1 UNIT/GM-% External Cream (Mycolog)Indicatio ns:Chronic dermatitis APPLY [...] bioprosthesis 09/04/2022 Aortic ectasia 05/18/2022 Atherosclerosis of [place] co 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 angina pectoris 05/18/2022 [...] recurrent Diastolic dysfunction 07/06/2016 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 (Household - for [...] encounter Miscellaneous Notes * Telephone Encounter - Sonal An OSA [...] Description 12/27/2023 1:40 PM EDT Office Visit [address] 293 [place] [address] Jose Angel Weeks, 293 [facility] [address] 01/08/2024 12:40 PM EDT Office Visit Neurology [address] [place] 200 [facility] [place] [address] Marquita Herrera PA-C 200 [facility] [place] [address] 04/06/2024 2:00 PM EST Office Visit [address] [facility] [address] Jose Angel Weeks, 293 [facility] [address] 04/07/2024 10:00 AM EST Laboratory Laboratory [facility] [address] [place] [phone] Vian, Lab [facility] 200 [facility] [place] [address] 04/14/2024 2:15 PM EST Office Visit Hematology/Oncology [facility] [address] [place] [address] Edmar Meeks MD 200 [place] [address] 07/30/2024 1:30 PM EDT Office Visit Neurology [facility] [address] [place] [address] Nataliya Vieyra PA-C [address] [place] [address] 10/28/2024 2:30 PM EDT Cardiac Studies Cardiac Studies[facility] [address] 12/11/2024 2:00 PM EDT Office Visit Dermatology [facility] [address] [place] [address] Jacky Arroyo MD 200 [place] [address] Scheduled Procedures Name Priority Associated Diagnoses Date/Ti me ESOPHAGOGASTRODUODENOSCOPY ( EGD), FLEXIBLE, TRANSORAL, DIAGNOSTIC Recall Gastric polyps COLONOSCOPY FLEXIBLE PROXIMAL DIAGNOSTIC Recall History of colonic polyps Health Maintenance Due Date Last Done Comments Adult Wellness Visit 08/19/2015 08/18/2014 Influenza Vaccine (FLU shot) (#1) 2023 01/29/2023, 02/07/2022, 01/17/2021, Additional history exists COVID-19 Vaccine (8 2022-24 season) 2024 02/12/2023, 10/11/2022, 01/30/2022, Additional history [...] this encounter Medical Devices Implanted Type Area Miller Head Assistant Wet Process Device Identifier Shelf Expiration Date Model / Serial / Lot Graft Lyoplant 10.0x12.5cm 4x5 - [id number] - [id number] Implanted:Qty : 1 on 04/20/2022 by Prudencio Sung III, MD at [place] [facility] Left: Head B JEFFERY : AESCULAP [id number] 09/26/2026 [id number] / [id number] / [id number] Mesh Ti Lo Mal Sm Arc 421.536 - [id number] Implanted:Qty : 1 on 04/20/2022 by Prudencio Sung III, MD at OR [facility] Left: Head SYNTHES MAXILLOFACIAL 421.536 / / Screw Ti Lo Pro Sd 4mm 400.834 - [id number] Implanted:Qty : 13 on 04/20/2022 by Prudencio Sung III, MD at OR [facility] Left: Head SYNTHES MAXILLOFACIAL 400.834 / / Cover [place] Hol Ti Lo 17 421.527 - [id number] Implanted:Qty : 4 on 04/20/2022 by Prudencio Sung III, MD at OR [facility] Left: Head SYNTHES MAXILLOFACIAL 421.527 / / Cover [place] Hole 17mm 421.554 - [id number] Implanted:Qty : 1 on 04/20/2022 by Prudencio Sung III, MD at OR [facility] Left: Head SYNTHES MAXILLOFACIAL 421.554 / / Valve Tavr Jayson 29mm - [id number] Implanted:Qty : 1 on 09/05/2022 by Alexis Crenshaw MD at [facility] [employer] [id number] 03/08/2023 [id number] / / documented as of this encounter Advance Directives Documents on File Type Date Recorded Patient Die Try Out Worker Stamping Expl anation Advance Directives and Living Will [...] Care Agent (per Health Care Power of Stranding Supervisor document) Care Teams Marketing Planning Manager Relationship Specialty Start Date End Date Jose Angel Weeks DO 293 [place] [address] PCP - General Internal Medicine 11/25/23 documented as of this encounter
--- OUTSIDE RECORDS SUMMARY | 2023-12-25 10:31 | External Medical Summary | Summary of Care ---
Author Name Unknown Organization [facility] Address [address] [place] [address] Phone [phone] Care Team Providers Care Manager Materials Management Name Role Phone Jose Angel Weeks DO Primary Care Provider [phone] Reason for Visit * Reason Onset Date Comments Appointment 12/24/2023 Colonoscopy/EGD Encounter Details Date Type Department Care Team (Late st Contact Info) Description 12/24/2023 Telephone Family Practice 65 [facility] [address] [place] [address] Jose Angel Weeks DO 293 [place] [address] Appointment (Colonoscopy/EGD) Allergies Active Allergy Reactions Criticality Noted Date Comments Ibuprofen 12/12/2013 Aspirin 07/03/2021 Other reaction(s): CANNOT TAKE DUE TO GASTRITIS Valdecoxib 03/03/2013 General ill feeling Celecoxib Other (Please comment) 08/27/2017 care home use caused heart-burn Codeine 12/12/2022 Other [...] 180 Tablet 3 05/20/2023 Active Nystatin-Triamcino lone 813389-3.1 UNIT/GM-% External Cream (Mycolog)Indicatio ns:Chronic dermatitis APPLY [...] bioprosthesis 09/04/2022 Aortic ectasia 05/18/2022 Atherosclerosis of [place] co 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 angina pectoris 05/18/2022 [...] 09/12 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 History of compression fracture of spine 018 Overview: Winter , T10, L5 - traumatic 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 leg, recurrent Diastolic dysfunction 07/06/2016 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 (Household - for [...] have any openings in our OR at [facility] to accommodate. If there is an immediate concern ,having the patient come to the ER at [facility] would be an option or is there anyway the patient could be scheduled at [facility] given his geographical location? Thanks, Liz Sales [...] EDT Office Visit Family Practice [address] [place] [address] [place] [address] Jose Angel Weeks, 293 [facility] [address] 01/08/2024 12:40 PM EDT Office Visit Neurology [facility] [address] [place], [place] [address] Marquita Herrera PA-C [address] [place] [address] 04/06/2024 2:00 PM EST Office Visit Family Practice [address] [place] [address] [place] [address] Jose Angel Weeks, 293 [place] [address] 04/07/2024 10:00 AM EST Laboratory Laboratory [facility] [address] [place] [address] Nettie, Lab [facility] [address] [place], [place] [address] 04/14/2024 2:15 PM EST Office Visit Hematology/Oncology [facility] [address] [place], [place] [address] Edmar Meeks MD [address] [place], [place] [address] 07/30/2024 1:30 PM EDT Office Visit Neurology [facility] [address] [place], [place] [address] Nataliya Vieyra PA-C [address] [place] [address] 10/28/2024 2:30 PM EDT Cardiac Studies Cardiac Studies, [facility] 132 [facility] [place] [address] 12/11/2024 2:00 PM EDT Office Visit Dermatology [facility] [address] [place], [place] [address] Jacky Arroyo MD [address] [place] [address] Scheduled Procedures Name Priority Associated Diagnoses Date/Ti [...] this encounter Medical Devices Implanted Type Area Wire Worker Device Identifier Shelf Expiration Date Model / Serial / Lot Graft Lyoplant 10.0x12.5cm 4x5 - [id number] - [id number] Implanted:Qty : 1 on 04/20/2022 by Prudencio Sung III, MD at [facility] Left: Head B JEFFERY : JAVIER [id number] 09/26/2026 [id number] / [id number] / [id number] Mesh Ti Lo Mal Sm Arc 421.536 - [id number] Implanted:Qty : 1 on 04/20/2022 by Prudencio Sung III, [place] [facility] [place]: Head SYNTHES MAXILLOFACIAL 421.536 / / Screw Ti Lo Pro Sd 4mm 400.834 - [id number] Implanted:Qty : 13 on 04/20/2022 by Prudencio Sung III, [place] [facility] Left: Head SYNTHES MAXILLOFACIAL 400.834 / / Cover [place] Ti Lo 17 421.527 - [id number] Implanted:Qty : 4 on 04/20/2022 by Prudencio Sung III, MD [place] [facility] Left: Head SYNTHES MAXILLOFACIAL 421.527 / / Cover [place] Hole 17mm 421.554 - [id number] Implanted:Qty : 1 on 04/20/2022 by Pruedncio Sung III, MD [place] [facility] Left: Head SYNTHES MAXILLOFACIAL 421.554 / / Valve Tavr Jayson 29mm - [id number] Implanted:Qty : 1 on 09/05/2022 by Alexis Crenshaw MD at [facility] [employer] [id number] 03/08/2023 [id number] / / documented as of this encounter Advance Directives Documents on File Type Date Recorded Patient Data Coder Operator Expl anation Advance Directives and Living [...] Care Agent (per Health Care Power of Door Core Assembler document) Care Teams Manager Materials Management Relationship Specialty Start Date End Date Jose Angel Weeks DO 293 [place] [address] PCP - General Internal Medicine 11/25/23 documented as of this encounter
--- OUTSIDE RECORDS SUMMARY | 2023-12-25 10:31 | External Medical Summary | Summary of Care ---
Author Name Unknown Organization [facility] Address [address] [place] [address] Phone [phone] Care Team Providers Care Transition Coach Name Role Phone Jose Angel Weeks DO Primary Care Provider [phone] Reason for Visit * Reason Onset Date Comments Appointment 12/24/2023 Colonoscopy/EGD Encounter Details Date Type Department Care Team (Late st Contact Info) Description 12/24/2023 Telephone Family Practice 65 [facility] [address] [place] [address] Jose Angel Weeks DO [address] [place] [address] Appointment (Colonoscopy/EGD) Allergies Active Allergy [...] 180 Tablet 3 05/20/2023 Active Nystatin-Triamcino lone 158958-2.1 UNIT/GM-% External Cream (Mycolog)Indicatio ns:Chronic dermatitis APPLY [...] bioprosthesis 09/04/2022 Aortic ectasia 05/18/2022 Atherosclerosis of [place] 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 angina pectoris 05/18/2022 [...] leg, recurrent Diastolic dysfunction 07/06/2016 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 (Household - for ages [...] Description 12/27/2023 1:40 PM EDT Office Visit [address] 293 [place] [address] Jose Angel Weeks, [facility] [address] 01/08/2024 12:40 PM EDT Office Visit Neurology [address] [place] [address] [facility] [place] [address] Marquita Herrera PA-C [address] [facility] [place] [address] 04/06/2024 2:00 PM EST Office Visit [address] 293 [facility] [address] Jose Angel Weeks, [facility] [address] 04/07/2024 10:00 AM EST Laboratory Laboratory [facility] [address] [place] [phone] [place], Lab [facility] [address] [facility] [place] [address] 04/14/2024 2:15 PM EST Office Visit Hematology/Oncology [facility] [address] [place] [address] Edmar Meeks MD [address] [facility] [place] [address] 07/30/2024 1:30 PM EDT Office Visit Neurology [facility] [address] [place] [address] Nataliya Vieyra PA-C [address] [place] [address] 10/28/2024 2:30 PM EDT Cardiac Studies Cardiac Studies, [facility] [address] [facility] [address] 12/11/2024 2:00 PM EDT Office Visit Dermatology [facility] [address] [place] [address] Jacky Arroyo MD [address] [place] [address] Scheduled Procedures Name Priority Associated Diagnoses Date/Ti [...] this encounter Medical Devices Implanted Type Area Senior Net Programmer Device Identifier Shelf Expiration Date Model / Serial / Lot Graft Lyoplant 10.0x12.5cm 4x5 - [id number] - [id number] Implanted:Qty : 1 on 04/20/2022 by Prudencio Sung III[place] [facility] [place]: Head B JEFFERY : AESCULAP [id number] 09/26/2026 [id number] / [id number] / [id number] Mesh Ti Lo Mal Sm Arc 421.536 - [id number] Implanted:Qty : 1 on 04/20/2022 by Prudencio Sung III, [place] [facility] Left: Head SYNTHES MAXILLOFACIAL 421.536 / / Screw Ti Lo Pro Sd 4mm 400.834 - [id number] Implanted:Qty : 13 on 04/20/2022 by Prudencio Sung III, [place] [facility] Left: Head SYNTHES MAXILLOFACIAL 400.834 / / Cover [place] Ti Lo 17 421.527 - [id number] Implanted:Qty : 4 on 04/20/2022 by Prudencio Sung III, [place] [facility] Left: Head SYNTHES MAXILLOFACIAL 421.527 / / Cover [place] Hole 17mm 421.554 - [id number] Implanted:Qty : 1 on 04/20/2022 by Prudencio Sung III, MD [place] [facility] Left: Head SYNTHES MAXILLOFACIAL 421.554 / / Valve Tavr Jayson 29mm - [id number] Implanted:Qty : 1 on 09/05/2022 by Alexis Crenshaw MD at [facility] [employer] [id number] 03/08/2023 [id number] / / documented as of this encounter Advance Directives Documents on File Type Date Recorded Patient Grain Manager Expl anation Advance Directives and Living Will [...] Care Agent (per Health Care Power of Destination Imagination Coordinator document) Care Teams Transition Coach Relationship Specialty Start Date End Date Jose Angel Weeks DO 293 [place] [address] PCP - General Internal Medicine 11/25/23 documented as of this encounter
--- OUTSIDE RECORDS SUMMARY | 2023-12-25 10:31 | External Medical Summary | Summary of Care ---
Author Name Unknown Organization [facility] Address [address] [place] [address] Phone [phone] Care Team Providers Care Group Sales Representative Name Role Phone Jose Angel Weeks DO Primary Care Provider [phone] Reason for Referral * Ancillary Services (Within 3 days (urgent)) - Authorized Specialty Diagnoses / Procedures Referred By Kathia hooks Referred To Contact Gastroenterology Diagnoses Iron deficiency anemia due to chronic blood loss Gastrointestinal hemorrhage with melena Jose Angel Weeks DO [address] [place] [address] Referral ID Status Reason Start Date Expiration Date Visits Requested Visits Authorized [id number] Authorized Ancillary Services Required 12/24/[phone] Question Answer Referral Priority Within 3 days (urgent) Where should this appointment be scheduled? [facility] Comments ALERT: Do not order for pediatric patients (18 years or younger). Cancel off screen and order PEDS GASTROENTEROLOGY CONSULT (Type: 1 visit only-Evaluate and Treat) The following Pt. Instructions are available: - Gastro Colonoscopy Prep Instructions [41501] - Gastro Colonoscopy Prep Instructions (Nigerian Version) [[id number]] Go to the Pt. Instructions section within the Visit Navigator to access. Colonoscopy ASGE Guidelines: Average risk screening (begin at age 50, 10 year intervals) ADDITIONAL INFORMATION 1. Is the patient on Coumadin? No 2. Is the patient on Pradaxa? No * Ancillary Services (Within 3 days (urgent)) - Authorized Specialty Diagnoses / Procedures Referred By Contac t Referred To Contact Gastroenterology Diagnoses Iron deficiency anemia due to chronic blood loss Gastrointestinal hemorrhage with melena Jose Angel Weeks DO [address] [place] [address] Referral ID Status Reason Start Date Expiration Date Visits Requested Visits Authorized [id number] Authorized Ancillary Services Required 12/24/[phone] Question Answer Referral Priority Within 3 days (urgent) Where should this appointment be scheduled? [facility] Comments Upper Endoscopy ASGE Guidelines Melena ADDITIONAL INFORMATION 1. Is the patient on Coumadin? No 2. Is the patient on Pradaxa? No * Evaluate & Treat - Unlimited Visits (Within 3 days (urgent)) - Authorized Specialty Diagnoses / Procedures Referred By Contac t Referred To Contact Gastroenterology Diagnoses Iron deficiency anemia due to chronic blood loss Gastrointestinal hemorrhage with melena Jose Angel Weeks DO [address] [place] [address] Referral ID Status Reason Start Date Expiration Date Visits Requested Visits Authorized [id number] Authorized Specialty Services Required 12/24/[phone] Question Answer Referral Priority Within 3 days (urgent) Where should this appointment be scheduled? [facility] For what condition is the patient being referred? All Gastro Conditions Reason for Visit * Reason Onset Date Comments Follow Up Hospital Follow-Up 12/24/2023 Encounter Details Date Type Department Care Team (Latest Contact Info) Description 12/24/2023 11:20 AM EDT Office Visit Family Practice [facility] [address] [place] [address] Jose Angel Weeks DO [address] [place] [address] Gastrointestinal hemorrhage with melena*; Iron deficiency anemia due to chronic blood loss; TIA (transient ischemic attack); Paroxysmal atrial fibrillation (HCC); Thrombocytopenia (HCC); History of recurrent deep vein thrombosis (DVT); Benign prostatic hyperplasia with urinary frequency; Chronic hyponatremia; Lumbar degenerative disc disease; History of subdural hematoma; Mild ascending aorta dilatation (HCC); Status post transcatheter aortic valve replacement (TAVR) using bioprosthesis; Atherosclerosis of [place] coronary artery of [place] heart without angina pectoris; Obstructive sleep apnea of adult; Diastolic dysfunction; Hospital discharge follow-up Allergies Active Allergy Reactions Criticality Noted Date Comments Ibuprofen 12/12/2013 Aspirin 07/03/2021 Other reaction(s): CANNOT TAKE DUE TO GASTRITIS Valdecoxib 03/03/2013 General ill feeling Celecoxib Other (Please comment) 08/27/2017 rodent exterminator use caused heart-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 Codeine 12/12/2022 Other [...] 180 Tablet 3 05/20/2023 Active Nystatin-Triamcino lone 346976-7.1 UNIT/GM-% External Cream (Mycolog)Indicatio ns:Chronic dermatitis APPLY [...] Aortic ectasia 05/18/2022 Atherosclerosis of [place] co 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 angina pectoris 05/18/2022 [...] mRNA, LNP-s, No Pre serve, 2-Dose Series ([employer]) 08/02/2021,02/13/2021,07/28/2020,06/27 COVID-19, MRNA-LNP, 23-24, P F, 30 MCG/0.3 mL, 12 YRS AND ABOVE, IM ([facility]) 02/12/2023 Covid-19, Mrna, Lnp-s, Pf, B ivalent, 30 Mcg, IM, 12 yrs and above ([employer]) 10/11/2022,01/30/2022 Pneumococcal Conjugate Vacc, 13 Valent (Prevnar) [...] Sign Reading Time Taken Comments Blood Pressure 102/56 12/24/2023 11:13 AM EDT Pulse 63 12/24/2023 11:13 AM EDT Temperature 35.7 C (96.3 F) 12/24/2023 1 1:13 AM EDT Respiratory Rate 14 12/24/2023 11:1 3 AM EDT Oxygen Saturation 99% 12/24/2023 11: 13 AM EDT Inhaled Oxygen Concentration - - Weight 77.5 kg (170 lb 14.4 oz) 024 11:13 AM EDT Height 177.8 cm (5' 10") 12/24/2023 11: 13 AM EDT Body Mass Index 24.52 12/24/2023 11:13 AM EDT documented in this encounter Functional [...] as of this encounter Progress Notes * Jose Angel Weeks DO - 12/24/2023 11:40 AM EDT SUBJECTIVE: Alec Peterson is a 83 year old male. Chief Complaint Patient presents with Follow Up Hospital Follow-Up Recent Admission: Patient was recently admitted to [facility] . The date of discharge was 12/12/2023. Discharge report received and reviewed. HPI: Patient is an 83 year old male with a history of recurrent lower extremity DVT in , TAVR on 09/04/2022, Atrial Fibrillation, Thrombocytopenia, left reveres shoulder replacement on 03/11/2023, mild ascending aorta enlargement, Lumbar DDD, Posttraumatic Vertebral Compression Fracture, BPH, CHF, Traumatic SDH evacuation in 03/2022, and Anxiety that is seen for hospital follow up. The patient was admitted to [facility] 12/10/2023- 12/12/2023 for TIA. He had transient left eye vision loss. 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 CTA head and neck without any significant vascular stenosis. The patient has fatigue and black stool for 5 days. No chest pain or shortness of breath are present. No diarrhea. Patient and his have noticed slow memory loss and difficulty processing information for the last 9 months. Patient Active Problem List Diagnosis Insomnia Chronic rhinitis nursing home current use of anticoagulant therapy Thrombocytopenia (HCC) [...] of fall Aortic ectasia (HCC) Atherosclerosis of [place] co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 angina pectoris Status post [...] 1 Tablet by mouth in the morning. Konsyl Original Formula 100 % Oral Powder (Psyllium) Take two teaspoons by mouth twice daily (patient home med) (Patient taking differently: Take one teaspoons by mouth twice daily (patient home med)) 660 g 5 Acetaminophen 500 MG Oral Tablet (Tylenol) Take 2 Tablets by mouth every 8 hours as needed for Pain, Mild or Pain, Moderate. Metoprolol Tartrate 50 MG Oral Tablet (Lopressor) Take 1 Tablet by mouth in the morning and 1 Tablet before bedtime. 180 Tablet 3 Folic Acid 1 MG Oral Tablet Take 1 Tablet by mouth in the morning. In the morning.. 90 Tablet 3 Atorvastatin Calcium 20 MG Oral Tablet (Lipitor) Take 1 Tablet by mouth every morning. Takes 1 tab once daily at dinner time Famotidine 40 MG Oral Tablet (Pepcid) Take 1 Tablet by mouth in the morning. 30 Tablet 3 Artificial Tears 0.1-0.3 % Ophthalmic Solution (Dextran 70-Hypromellose) Instill into eye at bedtime. Mupirocin Calcium 2 % External Cream (Bactroban) Apply topically to affected area 3 times a day. Opening area on face. (Patient taking differently: Apply topically to affected area 3 times a day. Opening area on face. Using 1-2 times weekly) 30 g 3 Nystatin-Triamcinolone 229501-2.1 UNIT/GM-% External Cream (Mycolog) APPLY TOPICALLY NEEDED DIRECTED BY PHYSICIAN, uses in groin 30 g 2 No current facility-administered medications for this visit. Current and discharge medications have been reconciled. Review of patient's allergies indicates: Allergen Reactions Lovenox [Enoxaparin] Other (Please comment) Affected platelet count Advil [Ibuprofen] Aspirin Other reaction(s): CANNOT TAKE DUE TO GASTRITIS Bextra [Valdecoxib] General ill feeling Celebrex [Celecoxib] Other (Please comment) nursing home use caused heart-burn Codeine Other Reaction(s): GENERAL [...] [Rofecoxib] General ill feeling and stomach upset OBJECTIVE: BP 102/56 | Pulse 63 | Temp 35.7 C (96.3 F) | Resp 14 | Ht 1.778 m (5' 10") | Wt 77.5 kg (170 lb 14.4 oz) | SpO2 99% | BMI 24.52 kg/m | BSA 1.96 m REVIEW OF SYSTEMS: Review of Systems Constitutional: Positive for fatigue. Negative for appetite change, diaphoresis, fever and unexpected weight change. HENT: Negative for congestion, sore throat and trouble swallowing. Respiratory: Negative for cough, shortness of breath and wheezing. Cardiovascular: Negative for chest pain, palpitations and leg swelling. Gastrointestinal: Negative for abdominal pain, blood in stool, constipation, diarrhea, nausea and vomiting. Genitourinary: Negative for dysuria, frequency and hematuria. Musculoskeletal: Positive for gait problem (Ambulates with a cane). Negative for back pain and neckpain. Neurological: Negative for dizziness, syncope and headaches. Psychiatric/Behavioral: Positive for decreased concentration. Negative for confusion, dysphoric mood and sleep disturbance. PHYSICAL EXAM: BP 102/56 | Pulse 63 | Temp 35.7 C (96.3 F) | Resp 14 | Ht 1.778 m (5' 10") | Wt 77.5 kg (170 lb 14.4 oz) | SpO2 99% | BMI 24.52 kg/m | BSA 1.96 m Physical Exam Vitals and nursing note reviewed. Constitutional: Comments: Frail and elderly HENT: Head: Normocephalic and atraumatic. Cardiovascular: Rate [...] Behavior normal. Thought Content: Thought content normal. Component Latest Ref Rng 12/23/2023 12/24/2023 BUN 6 - 20 mg/dL 53 (H) Creatinine 0.6 - 1.2 mg/dL 0.9 Estimated Glomerular Filtration Rate >=60 mL/min 84 Sodium 135 - 146 mmol/L 131 (L) Potassium 3.5 - 5.1 mmol/L 4.9 Chloride 98 - 107 mmol/L 95 (L) CO2 22 - 32 mmol/L 31 Anion Gap 7 - 15 mmol/L 5 (L) Glucose 70 - 120 mg/dL 102 Albumin 3.8 - 5.0 g/dL 4.1 AST 10 - 50 U/L 14 Alkaline Phosphatase 35 - 130 U/L 61 Bilirubin, Total <=1.2 mg/dL 0.5 Calcium 8.4 - 10.2 mg/dL 9.2 Protein 6.0 - 8.3 g/dL 5.7 (L) ALT 10 - 50 U/L 12 WBC 4.00 - 10.80 K/uL 5.41 Neutrophils % 40.0 - 75.0 % 63.5 Lymphocytes % 18.0 - 42.0 % 24.2 Monocytes % 1.0 - 11.0 % 10.2 Eosinophils % 0.0 - 6.0 % 1.3 Basophils % 0.0 - 2.0 % 0.4 Immature Granulocytes % 0.0 - 2.0 % 0.4 Absolute Neutrophils 1.80 - 7.70 K/uL 3.44 Absolute Lymphocytes 1.00 - 4.80 K/ul 1.31 Absolute Monocytes 0.00 - 1.10 K/uL 0.55 Absolute Eosinophils 0.00 - 0.70 K/uL 0.07 Absolute Basophils 0.00 - 0.20 K/uL 0.02 Absolute Immature Granulocytes 0.00 - 0.20 K/uL 0.02 WBC 4.00 - 10.80 K/uL 5.41 RBC 4.50 - 5.25 M/uL 2.55 HGB 14.0 - 16.8 g/dL 9.1 (L) HCT 40.0 - 48.4 % 27.6 (L) MCV 82.0 - 99.5 fL 108.2 MCH 27.0 - 34.0 pg 35.7 MCHC 32.0 - 36.0 g/dL 33.0 RDW 11.5 - 15.5 % 11.9 PLT 140 - 400 K/uL 88 (L) MPV 6.6 - 11.1 fL 9.9 nRBCs <=0 /100 WBCs 0 Reticulocyte Percent 0.80 - 1.90 % 2.68 (H) Absolute Reticulocyte 31.3 - 100.1 K/uL 68.3 Immature Reticuloctye Fraction 2.5 - 20.6 % 15.9 Reticulocyte Hemoglobin 29.7 - 37.4 pg 37.9 (H) iFOBT Negative Positive ! Legend: (H) High (L) Low ! Abnormal ASSESSMENT/PLAN Gastrointestinal hemorrhage with melena (Primary) - ADULT GASTROENTEROLOGY REFERRAL OP - UPPER ENDOSCOPY GI REFERRAL OP - COLONOSCOPY, GI REFERRAL OP - Start Famotidine 40 MG Oral Tablet (Pepcid); Take 1 Tablet by mouth in the morning. Iron deficiency anemia due to chronic blood loss - ADULT GASTROENTEROLOGY REFERRAL OP - UPPER ENDOSCOPY GI REFERRAL OP - COLONOSCOPY, GI REFERRAL OP TIA (transient ischemic attack) Paroxysmal atrial fibrillation (HCC) Hold Apixaban due to HGb drop of 3 g/dl since hospitalization Thrombocytopenia (HCC) History of recurrent deep vein thrombosis (DVT) Hold Apixaban due to HGb drop of 3 g/dl since hospitalization Benign prostatic hyperplasia with urinary frequency Chronic hyponatremia Lumbar degenerative disc disease History of subdural hematoma Mild ascending aorta dilatation (HCC) Status post transcatheter aortic valve replacement (TAVR) using bioprosthesis Atherosclerosis of [place] coronary artery of [place] heart without angina pectoris Continue Metoprolol Obstructive sleep apnea of adult Diastolic dysfunction Hospital discharge follow-up - DISCH MED RECON CUR MED LIS Follow Up: Return in about 3 days (around 12/27/2023), or if symptoms worsen or fail to improve. I spent a total of 40-54 minutes (exact time 50 mins) minutes on the date of service in preparation, delivery, and documentation of the care provided to Alec Peterson excluding any time spent in performance of separately billed services. Jose Angel Weeks DO documented in this encounter Nursing Notes * Aaliyah Clemente LPN - 12/24/2023 11:13 AM EDT Please review labs, complains of fatigue. documented in this encounter Plan of Treatment Upcoming Encounters Date Type Department Care Team (Late st Contact Info) Description 12/27/2023 1:40 PM EDT Office Visit [facility] [address] [place] [address] Jose Angel Weeks, DO [address] [facility], [place] [id number] 01/08/2024 12:40 PM EDT Office Visit Neurology [facility] [address] [place] [address] Marquita Herrera PA-C [address] [place], [place] [address] 04/06/2024 2:00 PM EST Office Visit [facility] [address] [facility] [address] [facility], [place] [address] Jose Angel Weeks, DO [address] [facility], [place] [address] 04/07/2024 10:00 AM EST Laboratory Laboratory [facility] [address] [place] [id number] Nettie Lab [facility] [address] [facility] [place], [place] [address] 04/14/2024 2:15 PM EST Office Visit Hematology/Oncology [facility] [address] [place] [id number] Edmar Meeks MD [address] [facility] [place] [address] 07/30/2024 1:30 PM EDT Office Visit Neurology [facility] [address] [place], [place] [address] Nataliya Vieyra PA-C [address] [place] [address] 10/28/2024 2:30 PM EDT Cardiac Studies Cardiac Studies, [facility] [address] [facility] [place] [address] 12/11/2024 2:00 PM EDT Office Visit D[facility]atology [facility] [address] [facility] [place] [address] Jacky Arroyo MD [address] [facility] [place] [address] Scheduled Procedures Name Priority Associated Diagnoses Date/Ti me ESOPHAGOGASTRODUODENOSCOPY ( EGD), FLEXIBLE, TRANSORAL, DIAGNOSTIC Recall Gastric polyps COLONOSCOPY FLEXIBLE PROXIMAL DIAGNOSTIC Recall History of colonic polyps Scheduled Referrals Name Type Priority Associated Diagnoses Order Schedule ADULT GASTROENTEROLOGY REFERRAL OP Referral Within 3 days (urgent) Iron deficiency anemia due to chronic blood loss Gastrointestinal hemorrhage with melena Ordered: 12/24/2023 UPPER ENDOSCOPY GI REFERRAL OP Referral Within 3 days (urgent) Iron deficiency anemia due to chronic blood loss Gastrointestinal hemorrhage with melena Ordered: 12/24/2023 COLONOSCOPY, GI REFERRAL OP Referral Within 3 days (urgent) Iron deficiency anemia due to chronic blood loss Gastrointestinal hemorrhage with melena Ordered: 12/24/2023 Health Maintenance Due Date Last Done Comments [...] this encounter Medical Devices Implanted Type Area Foundry Melt Supervisor Device Identifier Shelf Expiration Date Model / Serial / Lot Graft Lyoplant 10.0x12.5cm 4x5 - [id number] - [id number] Implanted:Qty : 1 on 04/20/2022 by Prudencio Sung III, MD at OR [facility] [place] Left: Head B JEFFERY : AESCULAP [id number] 09/26/2026 [id number] / [id number] / [id number] Mesh Ti Lo Mal Sm Arc 421.536 - [id number] Implanted:Qty : 1 on 04/20/2022 by Prudencio Sung III, MD at OR [facility] [place] Left: Head SYNTHES MAXILLOFACIAL 421.536 / / Screw Ti Lo Pro Sd 4mm 400.834 - [id number] Implanted:Qty : 13 on 04/20/2022 by Prudencio Sung III, MD at OR [facility] [place] Left: Head SYNTHES MAXILLOFACIAL 400.834 / / Cover Bur Hol Ti Lo 17 421.527 - [id number] Implanted:Qty : 4 on 04/20/2022 by Prudencio Sung III, MD at OR [facility] [place] Left: Head SYNTHES MAXILLOFACIAL 421.527 / / Cover Adilene Hole 17mm 421.554 - [id number] Implanted:Qty : 1 on 04/20/2022 by Prudencio Sung III, MD at OR [facility] [place] Left: Head SYNTHES MAXILLOFACIAL 421.554 / / Valve Tavr Jayson 29mm - [id number] Implanted:Qty : 1 on 09/05/2022 by Alexis Crenshaw MD at CARDIAC LABS [facility] [place] [employer] [place] [id number] 03/08/2023 [id number] / / documented as of this encounter Visit Diagnoses Diagnosis Gastrointestinal hemorrhage with melena- Primary Iron deficiency anemia due to chronic blood loss Iron deficiency anemia secondary to blood loss (chronic) TIA (transient ischemic attack) Unspecified transient cerebral ischemia Paroxysmal atrial fibrillation (HCC) Atrial fibrillation Thrombocytopenia (HCC) Thrombocytopenia, unspecified History of recurrent deep vein thrombosis (DVT) Benign prostatic hyperplasia with urinary frequency Chronic hyponatremia Hyposmolality and/or hyponatremia Lumbar degenerative disc disease Degeneration of lumbar or lumbosacral intervertebral disc History of subdural hematoma Mild ascending aorta dilatation (HCC) Thoracic aortic ectasia Status post transcatheter aortic valve replacement (TAVR) using bioprosthesis Atherosclerosis of [place] coronary artery of [place] heart without angina pectoris Obstructive sleep apnea of adult Obstructive sleep apnea (adult) (pediatric) Diastolic dysfunction Heart disease, unspecified Hospital discharge follow-up Other follow-up examination documented in this encounter Advance Directives Documents on File Type Date Recorded Patient Tie Inspector Expl anation Advance Directives and Living Will [...] Relationship Healthcare Agent Relationshi p Communication Sujata Rahn Spouse First Alternate Health Care Agent (per Health Care Power of Head Tennis Professional document) Care Teams Group Sales Representative Relationship Specialty Start Date End Date Jose Angel Weeks DO [address] [place] [address] PCP - General Internal Medicine 11/25/23 documented as of this encounter
--- OUTSIDE RECORDS SUMMARY | 2023-12-25 10:31 | External Medical Summary | Summary of Care ---
Author Name Unknown Organization [facility] Address [address] [place] [address] Phone [phone] Care Team Providers Care Dry Starch Operator Name Role Phone Jose Angel Weeks DO Primary Care Provider [phone] Reason for Visit * Reason Onset Date Comments Appointment 12/24/2023 Colonoscopy/EGD Encounter Details Date Type Department Care Team (Late st Contact Info) Description 12/24/2023 Telephone Family Practice [facility] [address] [place] [address] Jose Angel Weeks DO [address] [place] [address] Appointment (Colonoscopy/EGD) Allergies Active Allergy Reactions Criticality Noted Date Comments Ibuprofen 12/12/2013 Aspirin 07/03/2021 Other reaction(s): CANNOT TAKE DUE TO GASTRITIS Valdecoxib 03/03/2013 General ill feeling Celecoxib Other (Please comment) 08/27/2017 group home use caused heart-burn Codeine 12/12/2022 Other [...] 180 Tablet 3 05/20/2023 Active Nystatin-Triamcino lone 446496-7.1 UNIT/GM-% External Cream (Mycolog)Indicatio ns:Chronic dermatitis APPLY [...] bioprosthesis 09/04/2022 Aortic ectasia 05/18/2022 Atherosclerosis of [place] co 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 angina pectoris 05/18/2022 [...] 09/12 BCC right upper back BCC left adventist History of compression fracture of spine 018 Overview: Winter , T10, L5 - traumatic 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 leg, recurrent Diastolic dysfunction 07/06/2016 Thrombocytopenia 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 (Household - for [...] have any openings in our OR at [facility] to accommodate. If there is an immediate concern ,having the patient come to the ER at [facility] would be an option or is there anyway the patient could be scheduled at [facility] given his geographical location? Thanks, Liz Sales [...] EDT Office Visit Family Practice [address] [place] [address] [place] [address] Jose Angel [facility] [address] 01/08/2024 12:40 PM EDT Office Visit Neurology [facility] [address] [place], [place] [address] Marquita Herrera PA-C [address] [place] [address] 04/06/2024 2:00 PM EST Office Visit Family Practice [address] [place] [address] 293 [facility] [place] [address] Jose Angel Weeks, 293 [place] [address] 04/07/2024 10:00 AM EST Laboratory Laboratory [facility] [address] [place] [address] Nettie, Lab [facility] [address] [place], [place] [address] 04/14/2024 2:15 PM EST Office Visit Hematology/Oncology [facility] [address] [place], [place] [phone] Edmar Meeks MD [address] [place], [place] [address] 07/30/2024 1:30 PM EDT Office Visit Neurology [facility] [address] [place], [place] [address] Nataliya Vieyra PA-C [address] [place] [address] 10/28/2024 2:30 PM EDT Cardiac Studies Cardiac Studies, [facility] [address] [facility] [place] [address] 12/11/2024 2:00 PM EDT Office Visit Dermatology [facility] [address] [place], [place] [address] Jacky Arroyo MD [address] [place] [address] Scheduled Procedures Name Priority Associated Diagnoses Date/Ti [...] this encounter Medical Devices Implanted Type Area Equipment Service Lead Device Identifier Shelf Expiration Date Model / Serial / Lot Graft Lyoplant 10.0x12.5cm 4x5 - [id number] - [id number] Implanted:Qty : 1 on 04/20/2022 by Prudencio Sung III, MD at [facility] Left: Head B JEFFERY : JAVIER [id number] 09/26/2026 [id number] / [id number] / [id number] Mesh Ti Lo Mal Sm Arc 421.536 - [id number] Implanted:Qty : 1 on 04/20/2022 by Prudencio Sung III, MD at OR [facility] Left: Head SYNTHES MAXILLOFACIAL 421.536 / / Screw Ti Lo Pro Sd 4mm 400.834 - [id number] Implanted:Qty : 13 on 04/20/2022 by Prudencio Sung III, MD at OR [facility] Left: Head SYNTHES MAXILLOFACIAL 400.834 / / Cover Bur Hol Ti Lo 17 421.527 - [id number] Implanted:Qty : 4 on 04/20/2022 by Prudencio Sung III, MD at OR [facility] Left: Head SYNTHES MAXILLOFACIAL 421.527 / / Cover Norris Hole 17mm 421.554 - [id number] Implanted:Qty : 1 on 04/20/2022 by Prudencio Sung III, MD at OR [facility] Left: Head SYNTHES MAXILLOFACIAL 421.554 / / Valve Tavr Jayson 29mm - [id number] Implanted:Qty : 1 on 09/05/2022 by Alexis Crenshaw MD at [facility]ARDI[facility]S [facility] [employer] [id number] 03/08/2023 [id number] / / documented as of this encounter Advance Directives Documents on File Type Date Recorded Patient Field Administrative Assistant Expl anation Advance Directives and Living Will [...] Care Agent (per Health Care Power of Treasury Accountant document) Care Teams Dry Starch Operator Relationship Specialty Start Date End Date Jose Angel Weeks DO [address] [facility] [place] [facility] [address] PCP - General Internal Medicine 11/25/23 documented as of this encounter
--- OUTSIDE RECORDS SUMMARY | 2023-12-25 10:31 | External Medical Summary | Summary of Care ---
Author Name Unknown Organization [facility] Address [address] [place] [address] Phone [phone] Care Team Providers Care Spray Blender Name Role Phone Jose Angel Weeks DO Primary Care Provider [phone] Reason for Visit * Reason Onset Date Comments Test Results 12/24/202312/23 Encounter Details Date Type Department Care Team (Late st Contact Info) Description 12/24/2023 Telephone Family Practice 65 [facility] [address] [place] [address] Jose Angel Weeks DO 293 [place] [address] Test Results (12/23) Allergies Active Allergy Reactions Criticality Noted Date [...] 180 Tablet 3 05/20/2023 Active Nystatin-Triamcino lone 833505-0.1 UNIT/GM-% External Cream (Mycolog)Indicatio ns:Chronic dermatitis APPLY [...] bioprosthesis 09/04/2022 Aortic ectasia 05/18/2022 Atherosclerosis of [place] co 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 angina pectoris 05/18/2022 [...] 09/12 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) 02/12/2023 Covid-19, Mrna, Lnp-s, Pf, B ivalent, 30 Mcg, IM, 12 yrs and above ([employer]) 10/11/2022,01/30/2022 Pneumococcal Conjugate Vacc, 13 Valent (Prevnar) [...] No 12/13/2023 Does the household have a [facility] source [facility] income? (Household - for [...] Telephone Encounter - Aaliyah Clemente LPN - 12/24/2023 9:05 AM EDT Will attempt to add to existing blood. Will await results. Thank you * Telephone Encounter - Aaliyah Clemente LPN - 12/24/2023 9:03 AM EDT ----- Message from Jose Angel Weeks DO sent at 12/24/2023 8:46 AM EDT ----- Anemia is present Check iron screen, Ferritin, B 12, LDH, Retic, and Folate documented in this encounter Plan of Treatment Upcoming Encounters Date Type Department Care Team (Late st Contact Info) Description 12/27/2023 1:40 PM EDT Office Visit Family Practice 65 [facility] 293 [place] [address] Jose Angel Weeks DO 293 [place] [address] 01/08/2024 12:40 PM EDT Office Visit Neurology [facility] [address] [place] [address] Marquita Herrera PA-C [address] [place] [address] 04/06/2024 2:00 PM EST Office Visit Family [facility] 65 [facility] 293 [place] [address] Jose Angel Weeks DO 293 [facility] [address] 04/07/2024 10:00 AM EST Laboratory Laboratory [facility] [address] [place] [phone] [place], [address] [facility] [place] [address] 04/14/2024 2:15 PM EST Office Visit Hematology/Oncology [facility] 200 [facility] [place] [phone] Edmar Meeks MD 200 [facility] [place] [address] 07/30/2024 1:30 PM EDT Office Visit Neurology [facility] 200 [facility] [place] [address] Nataliya Vieyra PA-C [address] [place] [address] 10/28/2024 2:30 PM EDT Cardiac Studies Cardiac Studies, [facility] 132 [facility] [place] [address] 12/11/2024 2:00 PM EDT Office Visit Dermatology [facility] 200 [facility] [place] [address] Jacky Arroyo MD [address] [place] [address] [place] [address] Pending Results Name Type Priority Associated Diagnoses Date /Time IRON SCREEN, INCLUDING TIBC Lab STAT Anemia 12/23/2023 2:10 PM EDT FERRITIN Lab STAT Anemia 12/23/2023 2:10 PM EDT VITAMIN B12 Lab STAT Anemia 12/23/2023 2:10 PM EDT LD Lab STAT Anemia 12/23/2023 2:10 PM EDT FOLIC ACID Lab STAT Anemia 12/23/2023 2:10 PM EDT Scheduled Procedures Name Priority Associated Diagnoses Date/Ti me ESOPHAGOGASTRODUODENOSCOPY ( EGD), FLEXIBLE, TRANSORAL, DIAGNOSTIC Recall Gastric polyps COLONOSCOPY FLEXIBLE PROXIMAL DIAGNOSTIC Recall History of colonic polyps Health Maintenance Due Date Last Done Comments Adult Wellness Visit 08/19/2015 08/18/2014 Influenza Vaccine (FLU shot) (#1) 2023 01/29/2023, 02/07/2022, 01/17/2021, Additional history exists COVID-19 Vaccine (2022-24 season) 2024 02/12/2023, 10/11/2022, 01/30/2022, Additional history [...] this encounter Medical Devices Implanted Type Area Professor Of Counseling Device Identifier Shelf Expiration Date Model / Serial / Lot Graft Lyoplant 10.0x12.5cm 4x5 - [id number] - [id number] Implanted:Qty : 1 on 04/20/2022 by Prudencio Sung III, MD at OR [facility] Left: Head B JEFFERY : AESCULAP [id number] 09/26/2026 [id number] / [id number] / [id number] Mesh Ti Lo Mal Sm Arc 421.536 - [id number] Implanted:Qty : 1 on 04/20/2022 by Prudencio Sung III, MD at OR [facility] Left: Head SYNTHES MAXILLOFACIAL 421.536 / / Screw Ti Lo Pro Sd 4mm 400.834 - [id number] Implanted:Qty : 13 on 04/20/2022 by Prudencio Sung III, MD at OR [facility] Left: Head SYNTHES MAXILLOFACIAL 400.834 / / Cover Bur Hol Ti Lo 17 421.527 - [id number] Implanted:Qty : 4 on 04/20/2022 by Prudencio Sung III, MD at OR [facility] Left: Head SYNTHES MAXILLOFACIAL 421.527 / / Cover Adilene Hole 17mm 421.554 - [id number] Implanted:Qty : 1 on 04/20/2022 by Prudencio Sung III, MD at OR [facility] Left: Head SYNTHES MAXILLOFACIAL 421.554 / / Valve Tavr Jayson 29mm - [id number] Implanted:Qty : 1 on 09/05/2022 by Alexis Crenshaw MD at [facility]S [facility] [employer] [place]AH[place]Z [id number] 03/08/2023 [id number] / / documented as of this encounter Procedures Procedure Name Priority Date/Time Associated Diagnosis Comments RETICULOCYTE PANEL Routine 12/23/2023 2: 10 PM EDT Anemia documented in this encounter Results * (ABNORMAL) RETICULOCYTE PANEL (12/23/2023 2:10 PM EDT) Reticulocyte Percent 2.68(H) 0.80 - 1.90 % 12/24/2023 9:25 AM EDT LABORATORY [facility] Absolute Reticulocyte 68.3 31.3 - 100.1 K/uL 12/24/2023 9:25 AM EDT LABORATORY [facility] Immature Reticuloctye Fraction 15.9 2.5 - 20.6 % 12/24/2023 9:25 AM EDT LABORATORY [facility] Reticulocyte Hemoglobin 37.9(H) 29.7 - 37.4 pg 12/24/2023 9:25 AM EDT LABORATORY [facility] Blood Venous blood specimen / Unknown Venipuncture / Unknown 12/23/2023 2:10 PM EDT 12/23/2023 2:10 PM EDT Jose Angel Weeks DO LAB BLOOD ORDERABLES LABORATORY [facility] [address] [place] [address] documented in this encounter Visit Diagnoses Diagnosis Anemia- Primary Anemia, unspecified documented in this encounter Advance Directives Documents on File Type Date Recorded Patient Sales Driver Expl anation Advance Directives and Living [...] Care Agent (per Health Care Power of Computer Tester document) Care Teams Spray Blender Relationship Specialty Start Date End Date Jose Angel Weeks DO [address] [place] [address] PCP - General Internal Medicine 11/25/23 documented as of this encounter
--- OUTSIDE RECORDS SUMMARY | 2023-12-25 10:32 | External Medical Summary | Summary of Care ---
Author Name Unknown Organization [facility] Address [address] [place] [address] Phone [phone] Care Team Providers Care Prover Name Role Phone Jose Angel Weeks DO Primary Care Provider [phone] Reason for Visit * Reason Onset Date Comments Appointment 12/24/2023 Colonoscopy/EGD Encounter Details Date Type Department Care Team (Late st Contact Info) Description 12/24/2023 Telephone Family Practice 65 [facility] [address] [place] [address] Jose Angel Weeks DO [address] [place] [address] Appointment (Colonoscopy/EGD) Allergies Active Allergy [...] 180 Tablet 3 05/20/2023 Active Nystatin-Triamcinol one 914791-7.1 UNIT/GM-% External Cream (Mycolog)Indication s:Chronic dermatitis APPLY [...] time Active Famotidine 40 MG Oral Tablet (Pepcid)Indications :Gastrointestinal hemorrhage with melena Take 1 Tablet by mouth in the morning. 30 Tablet 3 12/24/2023 Active documented as of this encounter (statuses [...] leg, recurrent Diastolic dysfunction 07/06/2016 Thrombocytopenia 06/05/2013 rn long term care current use of anticoagulant therapy 0 10/21/2012 [...] mRNA, LNP-s, No Pre serve, 2-Dose Series ([employer]) 08/02/2021,02/13/2021,07/28/2020,06/27 COVID-19, MRNA-LNP, 23-24, P F, 30 MCG/0.3 mL, 12 YRS AND ABOVE, IM ([facility]) 02/12/2023 Covid-19, Mrna, Lnp-s, Pf, B ivalent, 30 Mcg, IM, 12 yrs and above ([employer]) 10/11/2022,01/30/2022 Pneumococcal Conjugate Vacc, 13 Valent (Prevnar) [...] 12/27/2023 1:40 PM EDT Office Visit Family [address] 293 [facility] [address] Jose Angel Weeks, 293 [facility], [place] [address] 01/08/2024 12:40 PM EDT Office Visit Neurology [facility] 200 [facility] [place] [address] Marquita Herrera PA-C 200 [facility] [place] [address] 04/06/2024 2:00 PM EST Office Visit Family [facility] 65 [facility] 293 [facility], [place] [address] Jose Angel Weeks, [address] [place] [address] 04/07/2024 10:00 AM EST Laboratory Laboratory [facility] Nettie [place] [address] [place] [address] [facility] 200 [facility] [place] [address] 04/14/2024 2:15 PM EST Office Visit Hematology/Oncology [facility] 200 [facility] [place] [address] Edmar Meeks MD 200 [facility] [place] [address] 07/30/2024 1:30 PM EDT Office Visit Neurology [facility] 200 [facility] [place] [address] Nataliya Vieyra PA-C [facility] [place] [address] 10/28/2024 2:30 PM EDT Cardiac Studies Cardiac Studies, [facility] 132 [facility] [place] [address] 12/11/2024 2:00 PM EDT Office Visit Dermatology [facility] 200 [facility] [place] [address] Jacky Arroyo MD 200 [facility] [place] [address] Scheduled Procedures Name Priority Associated Diagnoses Date/Ti [...] this encounter Medical Devices Implanted Type Area Can Washer Device Identifier Shelf Expiration Date Model / Serial / Lot Graft Lyoplant 10.0x12.5cm 4x5 - [id number] - [id number] Implanted:Qty : 1 on 04/20/2022 by Prudencio Sung III, MD at [place] [facility] Left: Head B JEFFERY : AESCULAP [id number] 09/26/2026 [id number] / [id number] / [id number] Mesh Ti Lo Mal Sm Arc 421.536 - [id number] Implanted:Qty : 1 on 04/20/2022 by Prudencio Sung III, MD at [facility] Left: Head SYNTHES MAXILLOFACIAL 421.536 / / Screw Ti Lo Pro Sd 4mm 400.834 - [id number] Implanted:Qty : 13 on 04/20/2022 by Prudencio Sung III, MD at [facility] Left: Head SYNTHES MAXILLOFACIAL 400.834 / / Cover Bur Hol Ti Lo 17 421.527 - [id number] Implanted:Qty : 4 on 04/20/2022 by Prudencio Sung III, MD at [place] [facility] Left: Head SYNTHES MAXILLOFACIAL 421.527 / / Cover Adilene Hole 17mm 421.554 - [id number] Implanted:Qty : 1 on 04/20/2022 by Prudnecio Sung III, MD at [facility] Left: Head SYNTHES MAXILLOFACIAL 421.554 / / Valve Tavr Jayson 29mm - [id number] Implanted:Qty : 1 on 09/05/2022 by Alexis Crenshaw MD at [facility] [employer] [id number] 03/08/2023 [id number] / / documented as of this encounter Advance Directives Documents on File Type Date Recorded Patient Tax Adjuster Expl anation Advance Directives and Living Will [...] Care Agent (per Health Care Power of Charge Hand document) Care Teams Prover Relationship Specialty Start Date End Date Jose Angel Weeks DO 293 [facility] [place] [address] PCP - General Internal Medicine 11/25/23 documented as of this encounter
--- OUTSIDE RECORDS SUMMARY | 2023-12-25 10:33 | External Medical Summary ---
Author Name Unknown Address Unknown Organization [id number]:[facility] [place] [address] [place] [address] Laboratory Report Ordering Provider Test Date Status SHIV STEWART 12/23/2023 14:10:02 Final Observation Date Value Abnormality Reference (Units ) Status Ferritin 12/23/2023 14:10:02 114 30-400 (ng /mL) Final Performing Location [facility] [place] [address] [place] [address]
--- OUTSIDE RECORDS SUMMARY | 2023-12-25 10:33 | External Medical Summary ---
Author Name Unknown Address Unknown Organization [id number]:[facility] [place] [address] [place] [address] Laboratory Report Ordering Provider Test Date Status SHIV STEWART 12/23/2023 14:10:02 Final Observation Date Value Abnormality Reference (Units ) Status Vitamin B12 12/23/2023 14:10:02 525 146-1977 (pg/mL) Final Performing Location [facility] - [address] [place] [address]
--- OUTSIDE RECORDS SUMMARY | 2023-12-25 10:33 | External Medical Summary ---
Author Name Unknown Address Unknown Organization [id number]:[facility] [address] [place] [address] Laboratory Report Ordering Provider Test Date Status SHIV STEWART 12/23/2023 14:10:02 Final Observation Date Value Abnormality Reference (Units ) Status Folic Acid 12/23/2023 14:10:02 19.6 >4.5 (ng/ mL) Final Performing Location [facility] [place] [address] [place] [address]
[2023-12-25 16:23] LABS: Hemoglobin 7.2 g/dl (14.0-18.0)
[2023-12-25] MEDS ORDERED: SODIUM CHLORIDE 0.9% 250 ML IV PRN (16:32)
--- NOTE | 2023-12-25 17:39 | Hospitalist Progress Note ---
Date of Service December 25, 2023 Assessment & Plan (1) Acute gastrointestinal bleeding: Plan Mr. Alec Peterson is an 83 y/o M with PMHx of chronic hyponatremia, REENA nontolerant of CPAP, mild ascending aortic dilatation, history of recurrent DVT, paroxysmal atrial fibrillation [on Eliquis], diastolic dysfunction, aortic stenosis s/p TAVR, history of CAD, history of compression fracture of spine, osteoarthritis, history of chronic thrombocytopenia, BPH, history of panic attacks, history of fall with subdural hematoma s/p craniotomy [March 2022] and other problems listed below who presented to the ED for evaluation secondary to black stools since Saturday. Was sent here by his PCP after having a positive fecal occult blood test in the outpatient setting. Last dose of Eliquis 12/23 in am. #Acute blood loss anemia, c/f UGIBleed #Melena EGD in 2020 showing esophagitis, gastritis, gastric polyps, and duodenitis. he had colonoscopy in 2020 showing internal hemorrhoids. Hgb 8 on presentation. Hgb was 11.9 on 12/11. Sodium 131. Lab work otherwise unremarkable. UA negative. s/p 1 unit PRBCs. Continue Protonix drip. GI consult: NPO at midnight for EGD Hgb q 6 hours Transfuse PRBC for <8 given cardiac history #Chronic thrombocytopenia platelets 66, history of fluctuating baseline of 60-90s CTM, hold dvt ppx #Paroxysmal Afib Continue Metoprolol, rate controlled Hold eliquis #H/O Recurrent DVT: Hold Eliquis for now given acute GI bleeding. #HTN: BP stable, continue metoprolol. #CAD: Chronic, stable. Continue atorvastatin and metoprolol DVT Prophylaxis: Chemoprophylaxis currently contraindicated given acute GI bleeding.scds Code Status: DNR/DNI - As per discussion with patient at bedside. PCP: Jose Angel Weeks, Disposition: continue to monitor on pcu 2/2 continued signs of bleeding Admission and Anticipated Discharge Date Admission Date: December 24, 2023 Subjective Patient evaluated at bedside Reports concern over source of bleeding being stomach given concerns of prior scope in 2020; however, patient states he will not do a c-scope He states that he has no pain, but otherwise is wishing to pursue quality of lif e and is frustrated by current situation Physical Exam Constitutional: WD/WN, vitals as above Respiratory: normal respiratory effort, lungs clear to auscultation Cardiovascular: RRR, no murmur, no edema Gastrointestinal (Abdomen): normal bowel sounds, soft, nontender, no hepatosplenomegaly Results & Data Results & Data Vital Signs (Past 12 Hours) Vital Signs Temp Pulse Pulse Resp BP BP Pulse Ox 12/25/23 17:15 37.1 C 60 16 109/57 L 98 12/25/23 16:51 36.9 C 56 L 18 127/61 98 12/25/23 15:38 36.6 C 53 L 18 120/61 98 12/25/23 11:21 37.1 C 60 18 105/56 L 96 12/25/23 08:00 65 12/25/23 07:27 36.9 C 69 18 107/51 L 94 O2 Del Method 12/25/23 17:15 12/25/23 16:51 12/25/23 15:38 Room Air 12/25/23 11:21 Room Air 12/25/23 08:00 12/25/23 07:27 Room Air Laboratory Results Short CBC 12/25/23 12/25/23 12/25/23 Range/Units 00:01 06:20 16:05 WBC 4.52 L (4.8-10.8) K/ul Hgb 8.1 L 7.9 L 7.2 L (14.0-18.0) g/dl Hct 24.1 L 23.4 L 22.0 L (42.0-52.0) % Plt Count 66 L (130-400) K/uL BMP 12/25/23 06:20 Sodium 134 L Potassium 4.0 Chloride 100 Carbon Dioxide 32 BUN 22 Creatinine 0.68 Glucose 111 H Calcium 8.5 L Medications Administered Home Medications Medication Instructions Recorded Confirmed Last Taken cyanocobalamin (vitamin B-12) 500 500 mcg PO QAM 04/01/20 12/24/23 03/10/23 09:00 mcg tablet acetaminophen 500 mg tablet 1,000 mg PO Q8 PRN mild/moderate 06/15/20 12/24/23 03/11/23 07:00 pain cholecalciferol (vitamin D3) 10 400 unit PO QAM 06/15/20 12/24/23 03/10/23 09:00 mcg (400 unit) tablet (Vitamin D3) fluticasone propionate 50 2 spray intranasal QAM 06/15/20 12/24/23 03/10/23 09:00 mcg/actuation nasal spray,suspension (Flonase Allergy Relief) lifitegrast 5 % eye drops in a 1 drp OPB BID 06/15/20 12/24/23 03/11/23 10:00 dropperette (Xiidra) psyllium 2 tsp PO BID 11/28/20 12/24/23 07/02/21 12:00 apixaban 5 mg tablet (Eliquis) 5 mg PO BID 12/12/22 12/24/23 12/24/23 08:00 folic acid 1 mg tablet 1 mg PO QAM 02/01/23 12/24/23 03/10/23 09:00 metoprolol tartrate 50 mg tablet 50 mg PO BID 02/01/23 12/24/23 03/11/23 07:00 dextran 70-hypromellose (PF) 0.1 1 drp ophthalmic (eye) HS 12/10/23 12/24/23 Unknown %-0.3 % eye drops in a dropperette (Artificial Tears (PF)) loratadine 10 mg disintegrating 10 mg PO DAILY PRN allergies 12/10/23 12/24/23 Unknown tablet (Alavert) atorvastatin 20 mg tablet 20 mg PO PM #30 tabs 12/12/23 12/24/23 Unknown Active Medications Generic Name Dose Route Start Last Admin Trade Name Freq PRN Reason Stop Dose Admin Artificial Tears 1 drops 12/24/23 23:45 12/25/23 00:08 Artificial Tears OP 01/23/24 23:44 2 drops HS LESVIA Administration Atorvastatin Calcium 20 mg 12/24/23 23:15 12/25/23 00:09 Atorvastatin 20 Mg Tab PO 01/23/24 23:14 20 mg PM LESVIA Administration Fluticasone Propionate 2 sprays 12/25/23 09:00 12/25/23 09:29 Fluticasone Propionate Na Spr 16 Gm Btl FARAZ 01/24/24 08:59 2 sprays QAM LESVIA Administration Folic Acid 1 mg 12/25/23 09:00 12/25/23 10:09 Folic Acid 1 Mg Tab PO 01/24/24 08:59 1 mg QAM LESVIA Administration Pantoprazole Sodium 40 mg/ 100 mls @ 20 mls/hr 12/24/23 18:00 12/25/23 15:48 Dextrose IV 01/23/24 17:59 8 mg/hr Q5H LESVIA 20 mls/hr Administration 8 MG/HR Acetaminophen 1,000 mg in 100 mls @ 400 mls/hr 12/24/23 17:53 12/25/23 11:21 Ofirmev IV 12/27/23 17:52 Infused Q8H PRN Infusion pain or fever Sodium Chloride 1,000 mls @ 80 mls/hr 12/24/23 19:45 12/25/23 16:58 Nss IV 12/26/23 09:14 0 mls/hr .[id number] LESVIA Infusion Lifitegrast 1 each 12/25/23 09:00 12/25/23 09:29 Lifitegrast 1 Each Droperette OP 01/24/24 08:59 1 each BID LESVIA Administration Loratadine 10 mg 12/24/23 23:37 12/25/23 10:25 Loratadine 10 Mg Tab PO 01/23/24 23:36 10 mg DAILY PRN Administration allergies Metoprolol Tartrate 50 mg 12/24/23 23:15 12/25/23 10:09 Metoprolol Tartrate 50 Mg Tab PO 01/23/24 23:14 50 mg BID LESVIA Administration Mupirocin 1 appln 12/24/23 23:45 12/25/23 13:23 Mupirocin 2% Oint 22 Gm Tube TOP 01/23/24 23:44 Not Given TID LESVIA
[2023-12-25 23:37] LABS: Hematocrit (blood only) 23.8 % (42.0-52.0)
[2023-12-26 07:22] LABS: Hematocrit (blood only) 22.7 % (42.0-52.0); Hemoglobin 7.9 g/dl (14.0-18.0); Mean Corpuscular Hemoglobin 33.9 pg (25.0-34.0); Mean Corpuscular Hgb Conc 34.8 g/dL (32.0-36.0); Mean Corpuscular Volume 97.4 fL (80.0-100.0); Platelet Count 73 K/uL (130-400); RDW Coefficient of Variation 14.2 % (11.5-14.5); RDW Standard Deviation 50.1 fL (36.4-46.3); Red Blood Count 2.33 M/uL (4.70-6.10); White Blood Count 4.08 K/ul (4.8-10.8)
[2023-12-26 07:57] LABS: Albumin Level 3.4 gm/dl (3.4-5.0); BUN Creatinine Ratio 18.3 (10-20); Bilirubin,Total 1.4 mg/dl (0.2-1.0); Calcium 8.2 mg/dl (8.6-10.3); Est GFR (African American) 96.1 ml/min; Est GFR (Non-African American) 82.9 ml/min; Globulin 1.7 gm/dl (2.5-4.0); Magnesium 1.9 mg/dl (1.7-2.4); Phosphorus 3.2 mg/dl (2.5-4.9); Potassium 3.9 mmol/L (3.5-5.1); Total Protein 5.1 gm/dl (6.0-8.3)
--- NOTE | 2023-12-26 08:36 | Hospitalist Progress Note ---
Date of Service December 26, 2023 Assessment & Plan (1) Acute gastrointestinal bleeding: Plan Mr. Alec Peterson is an 83 y/o M with PMHx of chronic hyponatremia, REENA nontolerant of CPAP, mild ascending aortic dilatation, history of recurrent DVT, paroxysmal atrial fibrillation [on Eliquis], diastolic dysfunction, aortic stenosis s/p TAVR, history of CAD, history of compression fracture of spine, osteoarthritis, history of chronic thrombocytopenia, BPH, history of panic attacks, history of fall with subdural hematoma s/p craniotomy [March 2022] and other problems listed below who presented to the ED for evaluation secondary to black stools since Saturday. Was sent here by his PCP after having a positive fecal occult blood test in the outpatient setting. Last dose of Eliquis 12/23 in am. Patient now s/p egd 12/25 with noted duodenal ulcer as well as gastritis. Patient transitioned to PO PPI and CLD. Discussed eliquis with Dr. Roger in [facility]. Recommends holding with repeat labs at beginning of week and will assess frequently time to resume eliquis give risk of bleeding v risk of stroke. #Acute blood loss anemia, c/f UGIB #Duodenal ulcer #Melena EGD in 2020 showing esophagitis, gastritis, gastric polyps, and duodenitis. he had colonoscopy in 2020 showing internal hemorrhoids. Hgb 8 on presentation. Hgb was 11.9 on 12/11. Sodium 131. Lab work otherwise unremarkable. UA negative. s/p 1 unit PRBCs. Continue Protonix drip. GI consult: EGD on 12/25 with large cratering duodenal ulcer, gastritis Reduce hgb draw to daily Transfuse PRBC for <8 given cardiac history #Chronic thrombocytopenia platelets 66, history of fluctuating baseline of 60-90s CTM, hold dvt ppx #Paroxysmal Afib Continue Metoprolol, rate controlled Hold eliquis [facility] to Dr. Roger, pt primary Revenue Agent: Recommends holding eliquis, will revaluate next week in follow up (tenatively hold for next three days with blood work come Saturday to assess CBC) with PCP follow up planned #H/O Recurrent DVT: Hold Eliquis for now given acute GI bleeding. #HTN: BP stable, continue metoprolol. #CAD: Chronic, stable. Continue atorvastatin and metoprolol DVT Prophylaxis: Chemoprophylaxis currently contraindicated given acute GI bleeding.scds Code Status: DNR/DNI - As per discussion with patient at bedside. PCP: Jose Angel Weeks, DO Disposition: continue to monitor on pcu s/p egd Admission and Anticipated Discharge Date Admission Date: December 24, 2023 Subjective Evaluated after EGD today Patient reports feeling groggy but otherwise feeling well Denies any acute concerns or abdominal pain Reported findings of egd to patient--verbalized understanding of need to hold eliquis given situation Physical Exam Constitutional: WD/WN, vitals as above Respiratory: normal respiratory effort, lungs clear to auscultation Cardiovascular: RRR, no murmur, no edema Gastrointestinal (Abdomen): normal bowel sounds, soft, nontender, no hepatosplenomegaly Results & Data Results & Data Vital Signs (Past 12 Hours) Vital Signs Temp Pulse Resp BP Pulse Ox O2 Del Method 12/26/23 07:47 37.3 C 65 20 124/61 93 Room Air 12/26/23 03:54 37.0 C 62 18 119/66 95 Room Air 12/25/23 22:58 36.5 C 52 L 20 129/59 L 97 Room Air Laboratory Results Short CBC 12/25/23 12/25/23 12/26/23 Range/Units 16:05 22:44 06:36 WBC 4.08 L (4.8-10.8) K/ul Hgb 7.2 L 8.0 L 7.9 L (14.0-18.0) g/dl Hct 22.0 L 23.8 L 22.7 L (42.0-52.0) % Plt Count 73 L (130-400) K/uL BMP 12/26/23 06:36 Sodium 134 L Potassium 3.9 Chloride 100 Carbon Dioxide 31 BUN 15 Creatinine 0.82 Glucose 102 H Calcium 8.2 L Liver Function 12/26/23 Range/Units 06:36 Total Bilirubin 1.4 H D (0.2-1.0) mg/dl AST 11 L (13-39) U/L ALT 8 (7-52) U/L Alkaline Phosphatase 36 (34-104) U/L Albumin 3.4 (3.4-5.0) gm/dl Medications Administered Home Medications Medication Instructions Recorded Confirmed Last Taken cyanocobalamin (vitamin B-12) 500 500 mcg PO QAM 04/01/20 12/24/23 03/10/23 09:00 mcg tablet acetaminophen 500 mg tablet 1,000 mg PO Q8 PRN mild/moderate 06/15/20 12/24/23 03/11/23 07:00 pain cholecalciferol (vitamin D3) 10 400 unit PO QAM 06/15/20 12/24/23 03/10/23 09:00 mcg (400 unit) tablet (Vitamin D3) fluticasone propionate 50 2 spray intranasal QAM 06/15/20 12/24/23 03/10/23 09:00 mcg/actuation nasal spray,suspension (Flonase Allergy Relief) lifitegrast 5 % eye drops in a 1 drp OPB BID 06/15/20 12/24/23 03/11/23 10:00 dropperette (Xiidra) psyllium 2 tsp PO BID 11/28/20 12/24/23 07/02/21 12:00 apixaban 5 mg tablet (Eliquis) 5 mg PO BID 12/12/22 12/24/23 12/24/23 08:00 folic acid 1 mg tablet 1 mg PO QAM 02/01/23 12/24/23 03/10/23 09:00 metoprolol tartrate 50 mg tablet 50 mg PO BID 02/01/23 12/24/23 03/11/23 07:00 dextran 70-hypromellose (PF) 0.1 1 drp ophthalmic (eye) HS 12/10/23 12/24/23 Unknown %-0.3 % eye drops in a dropperette (Artificial Tears (PF)) loratadine 10 mg disintegrating 10 mg PO DAILY PRN allergies 12/10/23 12/24/23 Unknown tablet (Alavert) atorvastatin 20 mg tablet 20 mg PO PM #30 tabs 12/12/23 12/24/23 Unknown pantoprazole 40 mg tablet,delayed 40 mg PO BID 42 days #84 tabs 12/26/23 Unknown release Active Medications Generic Name Dose Route Start Last Admin Trade Name Freq PRN Reason Stop Dose Admin Artificial Tears 1 drops 12/24/23 23:45 12/25/23 20:41 Artificial Tears OP 01/23/24 23:44 1 drops HS LESVIA Administration Atorvastatin Calcium 20 mg 12/24/23 23:15 12/25/23 20:42 Atorvastatin 20 Mg Tab PO 01/23/24 23:14 20 mg PM LESVIA Administration Fluticasone Propionate 2 sprays 12/25/23 09:00 12/26/23 08:46 Fluticasone Propionate Na Spr 16 Gm Btl FARAZ 01/24/24 08:59 2 sprays QAM LESVIA Administration Folic Acid 1 mg 12/25/23 09:00 12/26/23 08:46 Folic Acid 1 Mg Tab PO 01/24/24 08:59 1 mg QAM LESVIA Administration Acetaminophen 1,000 mg in 100 mls @ 400 mls/hr 12/24/23 17:53 12/26/23 05:16 Ofirmev IV 12/27/23 17:52 Infused Q8H PRN Infusion pain or fever Sodium Chloride 500 mls @ 15 mls/hr 12/26/23 07:30 12/26/23 11:27 Nss IV 12/27/23 07:29 15 mls/hr .Q24H LESVIA Administration Lifitegrast 1 each 12/25/23 09:00 12/26/23 08:44 Lifitegrast 1 Each Droperette OP 01/24/24 08:59 1 each BID LESVIA Administration Loratadine 10 mg 12/24/23 23:37 12/25/23 10:25 Loratadine 10 Mg Tab PO 01/23/24 23:36 10 mg DAILY PRN Administration allergies Metoprolol Tartrate 50 mg 12/24/23 23:15 12/26/23 08:45 Metoprolol Tartrate 50 Mg Tab PO 01/23/24 23:14 50 mg BID LESVIA Administration Mupirocin 1 appln 12/24/23 23:45 12/26/23 13:19 Mupirocin 2% Oint 22 Gm Tube TOP 01/23/24 23:44 Not Given TID LESVIA
--- NOTE | 2023-12-26 09:31 | Anesthesiology Consultation ---
Date of Service December 26, 2023 Assessment & Plan Chart Review Chart Review: Acceptable Risk for Surgery, Patient NOT seen in Pre Admission Testing and entry level web developer initiated Consults Requested none Proposed Anesthesia Anesthesia Type: MAC History Surgery Operation Date: 12/26/23 16:30 Proposed Procedures p Esophagogastroduodenoscopy Dr. Gila Uriostegui MD Height/Weight Height: 5 ft 10 in Weight: 79.2 kg Allergies Allergy/AdvReac Type Severity Reaction Status Date / Time aspirin AdvReac Unknown CANNOT Verified 08/14/23 15:48 TAKE DUE TO GASTRITIS celecoxib AdvReac Unknown MCFP Verified 08/14/23 15:48 USE CAUSED SEVERE HEARTBURN codeine AdvReac Unknown GENERAL Verified 08/14/23 15:48 ILL FEELING enoxaparin [From Lovenox] AdvReac Unknown thrombocyto Verified 08/14/23 15:48 penia finasteride AdvReac Unknown CAUSED Verified 08/14/23 15:48 GASTRITIS garlic AdvReac Unknown stomach Verified 08/14/23 15:48 cramp, diarrhea heparin AdvReac Unknown "not to be Verified 08/14/23 15:48 used with Eliquis" per pt hydrocodone AdvReac Unknown vomiting Verified 08/14/23 15:48 hydromorphone [From Dilaudid] AdvReac Unknown constipatio Verified 08/14/23 15:48 n ibuprofen AdvReac Unknown CANNOT Verified 08/14/23 15:48 TAKE DUE TO GASTRITIS lidocaine AdvReac Unknown lidocaine Verified 08/14/23 15:48 patch --> sinus infection loratadine AdvReac Unknown RACING Verified 08/14/23 15:48 HEART onion AdvReac Unknown upset Verified 08/14/23 15:48 stomach/diarrhea oxycodone AdvReac Unknown "KNOCKS ME Verified 08/14/23 15:48 OUT" pseudoephedrine AdvReac Unknown RACING Verified 08/14/23 15:48 HEART rofecoxib AdvReac Unknown GENERAL Verified 08/14/23 15:48 ILL FEELING valdecoxib AdvReac Unknown GENERAL Verified 08/14/23 15:48 ILL FEELING Medications Home Medications Medication Instructions Recorded Confirmed Last Taken cyanocobalamin (vitamin B-12) 500 500 mcg PO QAM 04/01/20 12/24/23 03/10/23 09:00 mcg tablet acetaminophen 500 mg tablet 1,000 mg PO Q8 PRN mild/moderate 06/15/20 12/24/23 03/11/23 07:00 pain cholecalciferol (vitamin D3) 10 400 unit PO QAM 06/15/20 12/24/23 03/10/23 09:00 mcg (400 unit) tablet (Vitamin D3) fluticasone propionate 50 2 spray intranasal QAM 06/15/20 12/24/23 03/10/23 09:00 mcg/actuation nasal spray,suspension (Flonase Allergy Relief) lifitegrast 5 % eye drops in a 1 drp OPB BID 06/15/20 12/24/23 03/11/23 10:00 dropperette (Xiidra) psyllium 2 tsp PO BID 11/28/20 12/24/23 07/02/21 12:00 apixaban 5 mg tablet (Eliquis) 5 mg PO BID 12/12/22 12/24/23 12/24/23 08:00 folic acid 1 mg tablet 1 mg PO QAM 02/01/23 12/24/23 03/10/23 09:00 metoprolol tartrate 50 mg tablet 50 mg PO BID 02/01/23 12/24/23 03/11/23 07:00 dextran 70-hypromellose (PF) 0.1 1 drp ophthalmic (eye) HS 12/10/23 12/24/23 Unknown %-0.3 % eye drops in a dropperette (Artificial Tears (PF)) loratadine 10 mg disintegrating 10 mg PO DAILY PRN allergies 12/10/23 12/24/23 Unknown tablet (Alavert) atorvastatin 20 mg tablet 20 mg PO PM #30 tabs 12/12/23 12/24/23 Unknown Active Medications Generic Name Dose Route Start Last Admin Trade Name Freq PRN Reason Stop Dose Admin Artificial Tears 1 drops 12/24/23 23:45 12/25/23 20:41 Artificial Tears OP 01/23/24 23:44 1 drops HS LESVIA Administration Atorvastatin Calcium 20 mg 12/24/23 23:15 12/25/23 20:42 Atorvastatin 20 Mg Tab PO 01/23/24 23:14 20 mg PM LESVIA Administration Fluticasone Propionate 2 sprays 12/25/23 09:00 12/26/23 08:46 Fluticasone Propionate Na Spr 16 Gm Btl FARAZ 01/24/24 08:59 2 sprays QAM LESVIA Administration Folic Acid 1 mg 12/25/23 09:00 12/26/23 08:46 Folic Acid 1 Mg Tab PO 01/24/24 08:59 1 mg QAM LESVIA Administration Pantoprazole Sodium 40 mg/ 100 mls @ 20 mls/hr 12/24/23 18:00 12/26/23 07:14 Dextrose IV 01/23/24 17:59 8 mg/hr Q5H LESVIA 20 mls/hr Administration 8 MG/HR Acetaminophen 1,000 mg in 100 mls @ 400 mls/hr 12/24/23 17:53 12/26/23 05:16 Ofirmev IV 12/27/23 17:52 Infused Q8H PRN Infusion pain or fever Lifitegrast 1 each 12/25/23 09:00 12/26/23 08:44 Lifitegrast 1 Each Droperette OP 01/24/24 08:59 1 each BID LESVIA Administration Loratadine 10 mg 12/24/23 23:37 12/25/23 10:25 Loratadine 10 Mg Tab PO 01/23/24 23:36 10 mg DAILY PRN Administration allergies Metoprolol Tartrate 50 mg 12/24/23 23:15 12/26/23 08:45 Metoprolol Tartrate 50 Mg Tab PO 01/23/24 23:14 50 mg BID LESVIA Administration Mupirocin 1 appln 12/24/23 23:45 12/25/23 20:43 Mupirocin 2% Oint 22 Gm Tube TOP 01/23/24 23:44 Not Given TID LESVIA Past Medical History Medical History Paroxysmal atrial fibrillation on Eliquis Subdural hematoma 03/2022, follows with [facility] neuro Hearing loss s/p hearing aids bilat History of blood transfusion alejandra-operatively 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 Roger History of duodenal ulcer MAY 2020 - RESOLVED History of gastritis Lumbar spinal stenosis Pt unable to stand > 15 min in same space per PAT RN call Injury of right hip multiple times -- treated with physical therapy Deep vein thrombosis x2 both DVT Right leg s/p shoulder surgery and the other after extended driving. Eliquis. (2004 & 2006) SCC (squamous cell carcinoma) s/p excision BCC (basal cell carcinoma) s/p excision Sleep apnea not currently on treatment Thrombocytopenia per [facility] heme onc, usual range 100,000-110,000-pre-op 01/2023: 87,000 On anticoagulant therapy Anemia monitoring per [facility] heme/onc Spinal fracture 2009 (L5 & L10 & L12) s/p fall Gout last flare yrs ago PSVT (paroxysmal supraventricular tachycardia) ~[id number], treated in [facility]. no problems since 2012. Past Family History Family History Father Heart disease Brother Heart disease Cancer Leukemia Past Surgical History Surgical History History of cardiac cath Feb 2022 > [place] > no stents Hx of hernia repair Right Open Inguinal Hernia Repair with [facility] H/O aortic valve repair August 2022 > [place] Brain bleed subdural hematoma-hospitalized at [place] Mar 2022 > due to a fall > surgical repair > was in ICU 11 days > Coumadin had been DC'ed was off thinner for a while, now on Eliquis History of esophagogastroduodenoscopy (EGD) History of cataract surgery bilateral History of cholecystectomy History of colonoscopy Status post Mohs surgery HX History of surgical removal of skin lesion H/O shoulder surgery bilateral Social History Smoking Status: Unknown if ever smoked Do You Dip or Chew Tobacco: No Hx Alcohol Use: No Hx Substance Use: No substance use type: does not use Physical Exam Vital Signs Last Vital Signs Temp 37.3 C 12/26/23 07:47 Pulse 65 12/26/23 07:47 Resp 20 12/26/23 07:47 BP 124/61 12/26/23 07:47 Pulse Ox 93 12/26/23 07:47 O2 Del Method Room Air 12/26/23 07:47 O2 Flow Rate 0 12/24/23 22:10 Testing Laboratory Results 12/26/23 06:36 12/26/23 06:36 PT 11.8 Seconds (9.0-12.0) 12/24/23 16:08 INR 1.1 (0.9-1.1) 12/24/23 16:08 APTT 26 Seconds (21-31) 12/24/23 16:08 Urine Color Yellow 12/24/23 16:35 Urine Appearance Clear (Clear) 12/24/23 16:35 Urine pH 5.5 (4.5-7.5) 12/24/23 16:35 Ur Specific [place] 1.013 (1.000-1.030) 12/24/23 16:35 Urine Protein Negative (Negative) 12/24/23 16:35 Urine Glucose (UA) Negative (Negative) 12/24/23 16:35 Urine Ketones Negative (Negative) 12/24/23 16:35 Urine Nitrite Negative (Negative) 12/24/23 16:35 Ur Leukocyte Esterase Negative (Negative) 12/24/23 16:35 Blood Type O Positive 12/24/23 16:14 Antibody Screen NEGATIVE 12/24/23 16:14 Electrocardiogram Date: 12/24/23 SR with 1st degree A-V block @ 68 bpm Chest X-Ray Date: 12/10/23 TECHNIQUE: Single frontal radiograph of the chest was obtained. Comparison: Comparison is made to chest radiograph 05/09/2017 FINDINGS: Left reverse arthroplasty is seen. Aortic valvular prosthesis is seen. Calcification of the aortic arch is seen. The lungs are clear. No evidence of pleural effusion or pneumothorax. IMPRESSION: No acute chest disease. Echocardiogram Date: 12/11/23 EF: 60-65 LV Function: normal RWMA: + none Other Findings: + LVH (mild) S/P TAVR
--- NOTE | 2023-12-26 09:59 | History & Physical Bridge Note ---
Date of Service December 26, 2023 History & Physical Bridge Note I have examined the patient, reviewed the History & Physical and in the interval since the performance of the History & Physical I have noted the following changes of clinical significance: no changes noted. He has been NPO after midnight. no chest pain or sob. no further melena noted per patient. He does endorse some epigastric pain today rated 3/10. 8/ hgb 7.9 (previously 7.9) - plan for EGD today to further evaluate melena. Supervising Physician Co-Signing Physician Notes I saw and examined this patient with our nurse practitioner and agree with her assessment and plan
[2023-12-26] MEDS: SODIUM CHLORIDE 0.9% 500 ML IV SCH (11:27)
--- NOTE | 2023-12-26 12:18 | GI REPORT ---
[facility] Patient: ESPERANZA VILLALTA : 1940 Sex at : Male Age: 83 Years Procedure: Upper GI endoscopy Date: 12/26/2023 Attending Physician: Iftikhar Uriostegui MD Referring MD: Jose Angel Weeks; Shavonne Pinon Md Indications: - Recent gastrointestinal bleeding Medications: - Monitored Anesthesia Care Complications: - No immediate complications. Estimated Blood Loss: - Estimated blood loss: None. Procedure: - Prior to the procedure, a History and Physical was performed, and patient medications and allergies were reviewed. The patient's tolerance of previous anesthesia was also reviewed. The risks and benefits of the procedure and the sedation options and risks were discussed with the patient. All questions were answered, and informed consent was obtained. [Anticoagulant Agents] [Days Prior to Procedure]. [ASA Grade]. After reviewing the risks and benefits, the patient was deemed in satisfactory condition to undergo the procedure. - The egd scope was introduced through the mouth and advanced to the second part of the duodenum. - The upper GI endoscopy was accomplished without difficulty. - The patient tolerated the procedure well. Findings: - The examined esophagus was normal. - Diffuse moderate inflammation characterized by erythema was found in the entire examined stomach. Multiple biopsies were obtained in the gastric antrum and on the greater curvature of the gastric body with cold forceps for histology. - One non-bleeding cratered duodenal ulcer with no stigmata of bleeding was found in the distal first portion of the duodenum. The lesion was 10 mm in largest dimension. Impression: - Normal esophagus. - Gastritis, characterized by erythema. - Multiple biopsies were obtained in the gastric antrum and on the greater curvature of the gastric body. - Non-bleeding duodenal ulcer with no stigmata of bleeding. Recommendation: - Resume previous diet. - Patient has a contact number available for emergencies. The signs and symptoms of potential delayed complications were discussed with the patient. Return to normal activities tomorrow. Written discharge instructions were provided to the patient. Procedure Code(s): - 86305, Esophagogastroduodenoscopy, flexible, transoral; with biopsy, single or multiple Diagnosis Code(s): - K92.2, Gastrointestinal hemorrhage, unspecified - K29.70, Gastritis, unspecified, without bleeding - K26.9, Duodenal ulcer, unspecified as acute or chronic, without hemorrhage or perforation CPT(R) - 2023 copyright [employer]. All Rights Reserved. The CPT codes, CCI edits and ICD codes generated are intended as suggestions and were generated based on input data. These codes are preliminary and upon hcc coders review may be revised to meet current compliance and payer requirements. The provider is responsible for the final determination of appropriate codes, and modifiers. Iftikhar Uriostegui MD This document has been electronically signed. Note Initiated:12/26/2023 Note Completed:12/26/2023 12:18 PM \\[id number]
--- NOTE | 2023-12-26 13:34 | Anesthesiology Progress Note ---
Date of Service December 26, 2023 Anesthesia Post Procedure Vital Signs Vital Signs: Temp Pulse Pulse Pulse Resp BP BP 12/26/23 12:43 56 L 16 141/67 H 12/26/23 12:28 60 16 143/65 H 12/26/23 12:13 60 16 133/61 12/26/23 11:21 36.6 C 49 L 18 145/58 H 12/26/23 07:47 37.3 C 65 20 124/61 12/26/23 03:54 37.0 C 62 18 119/66 12/25/23 22:58 36.5 C 52 L 20 129/59 L 12/25/23 19:56 37.1 C 57 L 16 112/52 L 12/25/23 19:54 60 16 110/59 L 12/25/23 19:31 37.1 C 61 18 114/57 L 12/25/23 18:54 37.1 C 61 20 114/57 L 12/25/23 17:54 36.8 C 58 L 16 114/51 L 12/25/23 17:24 36.7 C 59 L 16 116/56 L 12/25/23 17:15 37.1 C 60 16 109/57 L 12/25/23 16:51 36.9 C 56 L 18 127/61 12/25/23 15:38 36.6 C 53 L 18 120/61 Pulse Ox O2 Del Method 12/26/23 12:43 96 Room Air 12/26/23 12:28 97 Room Air 12/26/23 12:13 99 Room Air 12/26/23 11:21 97 Room Air 12/26/23 07:47 93 Room Air 12/26/23 03:54 95 Room Air 12/25/23 22:58 97 Room Air 12/25/23 19:56 97 12/25/23 19:54 98 12/25/23 19:31 97 Room Air 12/25/23 18:54 97 12/25/23 17:54 98 12/25/23 17:24 100 12/25/23 17:15 98 12/25/23 16:51 98 12/25/23 15:38 98 Room Air Transfer of Care Handoff Completed per policy Notes Mental Status: alert / awake / arousable and participated in evaluation Patient Amnestic to Procedure: Yes Nausea / Vomiting: adequately controlled Pain: adequately controlled Airway Patency, RR, SpO2: stable & adequate BP & HR: stable & adequate Hydration State: stable & adequate Anesthetic Complications: no major complications apparent
[2023-12-26] MEDS: LIDOCAINE 2% 2 ML VIAL/AMP(20MG/ML) INFIL ONE (18:25)
[2023-12-26] MEDS: PROPOFOL IV EMULSION 10 MG/ML 20 ML VIAL IV ONE (18:25)
[2023-12-26] MEDS: PANTOprazole 40 MG TAB PO SCH (21:06)
--- NOTE | 2023-12-26 23:15 | Electrocardiogram Report ---
Test Reason : Blood Pressure : */* mmHG Vent. Rate : 68 BPM Atrial Rate : 68 BPM P-R Int : 248 ms QRS Dur : 74 ms QT Int : 378 ms P-R-T Axes : -14 10 7 degrees QTcB Int : 401 ms Sinus rhythm with 1st degree A-V block Low voltage QRS Cannot rule out Inferior infarct , age undetermined Abnormal ECG When compared with ECG of 10-Dec-2023 16:11, Minimal criteria for Inferior infarct are now Present T wave inversion now evident in Inferior leads Confirmed by Rojas Harris ([id number]) on 12/26/2023 11:14:42 PM Referred By: Confirmed By: Rojas Harris
[2023-12-27 07:53] LABS: Hematocrit (blood only) 24.9 % (42.0-52.0); Hemoglobin 8.5 g/dl (14.0-18.0); Mean Corpuscular Hemoglobin 33.6 pg (25.0-34.0); Mean Corpuscular Hgb Conc 34.1 g/dL (32.0-36.0); Mean Corpuscular Volume 98.4 fL (80.0-100.0); Mean Platelet Volume 9.5 fL (9.4-12.4); Platelet Count 68 K/uL (130-400); RDW Coefficient of Variation 13.6 % (11.5-14.5); RDW Standard Deviation 47.9 fL (36.4-46.3); Red Blood Count 2.53 M/uL (4.70-6.10); White Blood Count 5.53 K/ul (4.8-10.8)
[2023-12-27 08:09] LABS: BUN Creatinine Ratio 13.2 (10-20); Calcium 8.2 mg/dl (8.6-10.3); Creatinine Clr Calc Pharmacy 78.7 ml/min; Est GFR (African American) 99.2 ml/min; Est GFR (Non-African American) 85.6 ml/min; Magnesium 1.8 mg/dl (1.7-2.4); Phosphorus 3.3 mg/dl (2.5-4.9); Potassium 3.6 mmol/L (3.5-5.1)
--- NOTE | 2023-12-27 09:05 | Discharge Summary ---
Discharge Summary Date of Service December 27, 2023 Principal Dx & Hospital Course #1 = Principal Diagnosis (1) Acute gastrointestinal bleeding: Plan Mr. Alec Peterson is an 83 y/o M with PMHx of chronic hyponatremia, REENA nontolerant of CPAP, mild ascending aortic dilatation, history of recurrent DVT, paroxysmal atrial fibrillation [on Eliquis], diastolic dysfunction, aortic stenosis s/p TAVR, history of CAD, history of compression fracture of spine, osteoarthritis, history of chronic thrombocytopenia, BPH, history of panic attacks, history of fall with subdural hematoma s/p craniotomy [March 2022] and other problems listed below who presented to the ED for evaluation secondary to black stools since Saturday. Was sent here by his PCP after having a positive fecal occult blood test in the outpatient setting. Last dose of Eliquis 12/23 in am. Patient now s/p egd 12/25 with noted duodenal ulcer as well as gastritis. Patient transitioned to PO PPI and CLD. Discussed eliquis with Dr. Roger in [facility]. Recommends holding with repeat labs at beginning of week and will assess frequently time to resume eliquis give risk of bleeding v risk of stroke. #Acute blood loss anemia, c/f UGIB #Duodenal ulcer #Melena EGD in 2020 showing esophagitis, gastritis, gastric polyps, and duodenitis. he had colonoscopy in 2020 showing internal hemorrhoids. Hgb 8 on presentation. Hgb was 11.9 on 12/11. Sodium 131. Lab work otherwise unremarkable. UA negative. s/p 1 unit PRBCs. Continue Protonix drip. GI consult: EGD on 12/25 with large cratering duodenal ulcer, gastritis Reduce hgb draw to daily Transfuse PRBC for <8 given cardiac history #Chronic thrombocytopenia platelets 66, history of fluctuating baseline of 60-90s CTM, hold dvt ppx #Paroxysmal Afib Continue Metoprolol, rate controlled Hold eliquis Curbssandi to Dr. Roger, pt primary [employer]: Recommends holding eliquis, will revaluate next week in follow up (tenatively hold for next three days with blood work come Saturday to assess CBC) with PCP follow up planned #H/O Recurrent DVT: Hold Eliquis for now given acute GI bleeding. #HTN: BP stable, continue metoprolol. #CAD: Chronic, stable. Continue atorvastatin and metoprolol DVT Prophylaxis: Chemoprophylaxis currently contraindicated given acute GI bleeding.scds Code Status: DNR/DNI - As per discussion with patient at bedside. PCP: Jose Angel Weeks DO Disposition: continue to monitor on pcu s/p egd Admission HPI Per Admitting Provider Alec Peterson is an 83 y/o M with PMHx of chronic hyponatremia, REENA nontolerant of CPAP, mild ascending aortic dilatation, history of recurrent DVT, paroxysmal atrial fibrillation [on Eliquis], diastolic dysfunction, aortic stenosis s/p TAVR, history of CAD, history of compression fracture of spine, osteoarthritis, history of chronic thrombocytopenia, BPH, history of panic attacks, history of fall with subdural hematoma s/p craniotomy [March 2022] and other problems listed below who presented to the ED for evaluation secondary to black stools since Saturday. History obtained from patient, at bedside and associated chart review. Noticed first episode of black stools on Saturday. He describes his stools as "oily" in appearance. Last bowel movement was on Saturday. No diarrhea. Was sent here by his PCP after having a positive fecal occult blood test in the outpatient setting. No fevers. Reports a chronic dry cough. Has been experiencing a headache. Did not take any OTC pain medication at home for this headache. He did feel a little lightheadedness when he got up to use the bathroom in the ED. No tobacco use. No alcohol use or recreational drug use. His last dose of Eliquis was this morning. Updated Medication List Medication Instructions Recorded Confirmed Type cyanocobalamin (vitamin B-12) 500 500 mcg PO QAM 04/01/20 12/24/23 History mcg tablet acetaminophen 500 mg tablet 1,000 mg PO Q8 PRN mild/moderate 06/15/20 12/24/23 History pain cholecalciferol (vitamin D3) 10 400 unit PO QAM 06/15/20 12/24/23 History mcg (400 unit) tablet (Vitamin D3) fluticasone propionate 50 2 spray intranasal QAM 06/15/20 12/24/23 History mcg/actuation nasal spray,suspension (Flonase Allergy Relief) lifitegrast 5 % eye drops in a 1 drp OPB BID 06/15/20 12/24/23 History dropperette (Xiidra) psyllium 2 tsp PO BID 11/28/20 12/24/23 History apixaban 5 mg tablet (Eliquis) 5 mg PO BID 12/12/22 12/24/23 History folic acid 1 mg tablet 1 mg PO QAM 02/01/23 12/24/23 History metoprolol tartrate 50 mg tablet 50 mg PO BID 02/01/23 12/24/23 History dextran 70-hypromellose (PF) 0.1 1 drp ophthalmic (eye) HS 12/10/23 12/24/23 History %-0.3 % eye drops in a dropperette (Artificial Tears (PF)) loratadine 10 mg disintegrating 10 mg PO DAILY PRN allergies 12/10/23 12/24/23 History tablet (Alavert) atorvastatin 20 mg tablet 20 mg PO PM #30 tabs 12/12/23 12/24/23 Rx pantoprazole 40 mg tablet,delayed 40 mg PO BID 42 days #84 tabs 12/26/23 Rx release Hospital Stay Data Consultations 12/24/23 17:35 ED Decision to Admit Stat 12/24/23 17:54 Consult Gastroenterology Routine Procedures Performed Operation Date: 12/26/23 16:30 Actual Procedures p EGD Biopsy Cytology - Iftikhar Uriostegui MD Pending Results Patient Have Any Pending Studies at Discharge: No Discharge Instructions Given to Patient (Per Discharging Provider) You were admitted for black stool and found to have a bleeding stomach (duodenal) ulcer. It is recommended you continue pantoprazole 40mg two times a day for 6 weeks and follow up with Gastroenterology as an outpatient. It is recommended you hold your Eliquis until PCP and Cardiology follow up next week. At that time, you will continue to discuss risks and benefits about timing of resuming anticoagulation, additionally you will be set up with out patient labs. If you notice increase in black stool or other signs of bleeding (bright red blood per rectum or vomiting coffee ground-like/black/red material) please come to the emergency room.
[2023-12-27] MEDS: LACTATED RINGER'S 500 ML IV ONE (10:43)
[2023-12-27] MEDS: LACTATED RINGER'S 1,000 ML IV SCH (11:17)
[2023-12-27] MEDS: PANTOprazole 40 MG in SYRINGE 0 ML IV SCH (11:18)
[2023-12-27 12:12] LABS: Hematocrit (blood only) 26.3 % (42.0-52.0); Hemoglobin 9.1 g/dl (14.0-18.0)
[2023-12-27] MEDS: ACETAMINOPHEN 500 MG TAB PO PRN (13:19)
--- NOTE | 2023-12-27 13:40 | Hospitalist Progress Note ---
Date of Service December 27, 2023 Assessment & Plan (1) Acute gastrointestinal bleeding: Plan Mr. Alec Peterson is an 83 y/o M with PMHx of chronic hyponatremia, REENA nontolerant of CPAP, mild ascending aortic dilatation, history of recurrent DVT, paroxysmal atrial fibrillation [on Eliquis], diastolic dysfunction, aortic stenosis s/p TAVR, history of CAD, history of compression fracture of spine, osteoarthritis, history of chronic thrombocytopenia, BPH, history of panic attacks, history of fall with subdural hematoma s/p craniotomy [March 2022] and other problems listed below who presented to the ED for evaluation secondary to black stools since Saturday. Was sent here by his PCP after having a positive fecal occult blood test in the outpatient setting. Last dose of Eliquis 12/23 in am. Patient now s/p egd 12/25 with noted duodenal ulcer as well as gastritis. Patient transitioned to PO PPI and CLD. Discussed eliquis with Dr. Roger in [facility]. Recommends holding with repeat labs at beginning of week and will assess frequently time to resume eliquis give risk of bleeding v risk of stroke. Patient initially to be discharged on 12/26, however, on day of patient with multiple bowel movements and diaphoresis. Patient noted to be hypotensive, with symptoms consistent with vasovagal episode. Patient hgb remained stable. Discharged canceled for close hemodynamic monitoring and hemoglobin check. CTA ordered given continued melanotic stool. It is suspected this may be residual product from recent bleed, however, given earlier episode will assess for change of bleed not identified on egd. #Near syncopal episode, c/f Vasovagal episode however given concern of bleeding and persistent melena, will order CTA r/o other source of bleed if brisk Repeat hgb and trend no discharge to day [employer] vital signs #Acute blood loss anemia, c/f UGIB *stable #Duodenal ulcer #Melena EGD in 2020 showing esophagitis, gastritis, gastric polyps, and duodenitis. he had colonoscopy in 2020 showing internal hemorrhoids. Hgb 8 on presentation. Hgb was 11.9 on 12/11. Sodium 131. Lab work otherwise unremarkable. UA negative. IV protonix BID for now until CTA done GI consult: EGD on 12/25 with large cratering duodenal ulcer, gastritis hgb q6 Transfuse PRBC for <8 given cardiac history CTA given above concern #Chronic thrombocytopenia platelets 66, history of fluctuating baseline of 60-90s CTM, hold dvt ppx #Paroxysmal Afib Continue Metoprolol, rate controlled Hold eliquis Alexandre to Dr. Roger, pt primary [employer]: Recommends holding eliquis, will revaluate next week in follow up (tentatively hold for next three days with blood work come Saturday to assess CBC) with PCP follow up planned #H/O Recurrent DVT: Hold Eliquis for now given acute GI bleeding. #HTN: BP stable, continue metoprolol. #CAD: Chronic, stable. Continue atorvastatin and metoprolol DVT Prophylaxis: Chemoprophylaxis currently contraindicated given acute GI bleeding.scds Code Status: DNR/DNI - As per discussion with patient at bedside. PCP: Jose Angel Weeks, Disposition: continue to monitor on pcu s/p egd Admission and Anticipated Discharge Date Admission Date: December 24, 2023 Subjective Initially no acute events overnight, patient ready for dispo this am However prior to leaving attempted to use bathroom with copious stool output and vasovagal like episode Discharge cancelled Patient initially report abdominal cramping, but then reports resolution Physical Exam Constitutional: WD/WN, vitals as above Respiratory: normal respiratory effort, lungs clear to auscultation Cardiovascular: RRR, no murmur, no edema Gastrointestinal (Abdomen): tenderness in LLQ on deep palpation Results & Data Results & Data Vital Signs (Past 12 Hours) Vital Signs Temp Pulse Pulse Resp BP Pulse Ox O2 Del Method 12/27/23 12:42 37.1 C 69 19 145/67 H 95 Room Air 12/27/23 11:57 36.5 C 60 20 135/65 96 Room Air 12/27/23 09:22 36.5 C 62 53 L 18 123/70 97 12/27/23 07:50 36.5 C 62 18 123/70 97 Room Air 12/27/23 02:38 36.9 C 64 18 118/67 97 Room Air Laboratory Results Short CBC 12/27/23 12/27/23 Range/Units 07:20 11:42 WBC 5.53 (4.8-10.8) K/ul Hgb 8.5 L 9.1 L (14.0-18.0) g/dl Hct 24.9 L 26.3 L (42.0-52.0) % Plt Count 68 L (130-400) K/uL BMP 12/27/23 07:20 Sodium 131 L Potassium 3.6 Chloride 97 L Carbon Dioxide 30 BUN 10 Creatinine 0.76 Glucose 109 H Calcium 8.2 L Medications Administered Home Medications Medication Instructions Recorded Confirmed Last Taken cyanocobalamin (vitamin B-12) 500 500 mcg PO QAM 04/01/20 12/24/23 03/10/23 09:00 mcg tablet acetaminophen 500 mg tablet 1,000 mg PO Q8 PRN mild/moderate 06/15/20 12/24/23 03/11/23 07:00 pain cholecalciferol (vitamin D3) 10 400 unit PO QAM 06/15/20 12/24/23 03/10/23 09:00 mcg (400 unit) tablet (Vitamin D3) fluticasone propionate 50 2 spray intranasal QAM 06/15/20 12/24/23 03/10/23 09:00 mcg/actuation nasal spray,suspension (Flonase Allergy Relief) lifitegrast 5 % eye drops in a 1 drp OPB BID 06/15/20 12/24/23 03/11/23 10:00 dropperette (Xiidra) psyllium 2 tsp PO BID 11/28/20 12/24/23 07/02/21 12:00 apixaban 5 mg tablet (Eliquis) 5 mg PO BID 12/12/22 12/24/23 12/24/23 08:00 folic acid 1 mg tablet 1 mg PO QAM 02/01/23 12/24/23 03/10/23 09:00 metoprolol tartrate 50 mg tablet 50 mg PO BID 02/01/23 12/24/23 03/11/23 07:00 dextran 70-hypromellose (PF) 0.1 1 drp ophthalmic (eye) HS 12/10/23 12/24/23 Unknown %-0.3 % eye drops in a dropperette (Artificial Tears (PF)) loratadine 10 mg disintegrating 10 mg PO DAILY PRN allergies 12/10/23 12/24/23 Unknown tablet (Alavert) atorvastatin 20 mg tablet 20 mg PO PM #30 tabs 12/12/23 12/24/23 Unknown pantoprazole 40 mg tablet,delayed 40 mg PO BID 42 days #84 tabs 12/26/23 Unknown release Active Medications Generic Name Dose Route Start Last Admin Trade Name Mayoq PRN Reason Stop Dose Admin Acetaminophen 1,000 mg 12/27/23 09:04 12/27/23 13:19 Acetaminophen 500 Mg Tab PO 01/26/24 09:03 1,000 mg Q8H PRN Administration Pain Artificial Tears 1 drops 12/24/23 23:45 12/26/23 21:02 Artificial Tears OP 01/23/24 23:44 1 drops HS LESVIA Administration Atorvastatin Calcium 20 mg 12/24/23 23:15 12/26/23 21:06 Atorvastatin 20 Mg Tab PO 01/23/24 23:14 20 mg PM LESVIA Administration Fluticasone Propionate 2 sprays 12/25/23 09:00 12/27/23 08:46 Fluticasone Propionate Na Spr 16 Gm Btl FARAZ 01/24/24 08:59 2 sprays QAM LESVIA Administration Folic Acid 1 mg 12/25/23 09:00 12/27/23 08:47 Folic Acid 1 Mg Tab PO 01/24/24 08:59 1 mg QAM LESVIA Administration Lactated Ringer's 1,000 mls @ 125 mls/hr 12/27/23 10:45 12/27/23 11:17 Lr IV 01/26/24 10:44 125 mls/hr .Q8H LESVIA Administration Pantoprazole Sodium 40 mg/ 10 mls @ 5 mls/min 12/27/23 10:45 12/27/23 11:18 Syringe IV 01/26/24 10:44 5 mls/min BID LESVIA Administration Lifitegrast 1 each 12/25/23 09:00 12/27/23 08:48 Lifitegrast 1 Each Droperette OP 01/24/24 08:59 1 each BID LESVIA Administration Loratadine 10 mg 12/24/23 23:37 12/27/23 08:47 Loratadine 10 Mg Tab PO 01/23/24 23:36 10 mg DAILY PRN Administration allergies Metoprolol Tartrate 50 mg 12/24/23 23:15 12/27/23 08:46 Metoprolol Tartrate 50 Mg Tab PO 01/23/24 23:14 50 mg BID LESVIA Administration Mupirocin 1 appln 12/24/23 23:45 12/27/23 14:10 Mupirocin 2% Oint 22 Gm Tube TOP 01/23/24 23:44 Not Given TID LESVIA Pantoprazole Sodium 40 mg 12/26/23 21:00 12/27/23 08:46 Pantoprazole 40 Mg Tab PO 01/25/24 20:59 40 mg BID LESVIA Administration
[2023-12-27] MEDS: OPTIRAY 320 125ml IV ONE (14:01)
--- NOTE | 2023-12-27 15:12 | Gastroenterology Progress Note ---
Date of Service December 27, 2023 Assessment & Plan (1) Symptomatic anemia: Plan: - continue to follow hgb/hct. transfuse as needed. - await official read of CTA, but Dr. Uriostegui and I had discussed with radiology and seemingly no bleeding. - continue with protonix 40mg IV BID. Admission and Anticipated Discharge Date Admission Date: December 24, 2023 Supervising Physician Co-Signing Physician Notes I saw and examined this patient with our nurse practitioner and agree with her assessment and plan. I had a few episodes of melena earlier today with mild hypotension. Now resolved after resuscitation. No active bleeding at the present time. Hemoglobin earlier today 9.1 repeat pending. Urgent CTA performed and reviewed with radiology which revealed no active bleeding. Will continue to monitor hemoglobin hematocrit and clinical status continue IV PPI. Reviewed images from a recent endoscopy which showed a duodenal ulcer in the distal bulb with no stigmata of recent hemorrhage which would suggest a low risk of rebleeding. However if bleeding recurs or anemia progresses will consider reendoscopy. Subjective Patient was initially going to be discharged home as he had no acute events overnight, however prior to leaving, he had used the restroom and had copious stool output and vasovagal like episode. As such, discharge was cancelled he underwent a CTA. reviewed the CTA with radiology and no active bleeding. hgb improved today to 9.1. seen patient after the CTA, he was feeling better. at bedside. Review of Systems Review of Systems: All systems reviewed & are unremarkable except as noted in HPI & below Physical Exam Constitutional: WD/WN, vitals as above Respiratory: normal respiratory effort, lungs clear to auscultation Cardiovascular: Rate/Rhythm: regular rate and regular rhythm Gastrointestinal (Abdomen): normal bowel sounds, soft, nontender, no hepatosplenomegaly Psychiatric: Orientation: alert and oriented x 3 Results & Data Results & Data Vital Signs (Past 12 Hours) Vital Signs Temp Pulse Pulse Resp BP Pulse Ox O2 Del Method 12/27/23 13:58 99.5 F 12/27/23 12:42 98.8 F 69 19 145/67 H 95 Room Air 12/27/23 11:57 97.7 F 60 20 135/65 96 Room Air 12/27/23 09:22 97.7 F 62 53 L 18 123/70 97 12/27/23 07:50 97.7 F 62 18 123/70 97 Room Air Coding Level of Care Code 64228 SUB INP/OBS CARE 2/35MIN Diagnoses Symptomatic anemia D64.9
--- NOTE | 2023-12-27 16:03 | CT Scan Report ---
CT ANGIOGRAM OF THE ABDOMEN AND PELVIS CLINICAL HISTORY: GI bleeding. COMPARISON STUDY: Abdominal CT dated 03/15/2023. TECHNIQUE: Following the IV administration of 112 cc of Optiray 320, CT angiogram of the abdomen and pelvis was performed from the lung bases the proximal femora. Images are reviewed in the axial, sagit leonardo, and coronal planes. 3-D MIPS images are created and assessed. IV contrast was administered witho ut complication. A dose lowering technique was utilized adhering to the principles of ALARA. CT DOSE: 1520.33 mGy.cm FINDINGS: Lower chest: There is evidence of previous aortic valve surgery. The heart is enlarged and without pe ricardial effusion. The coronary arteries are densely calcified. There are trace pleural effusions wi th dependent atelectasis. Liver: The contrast-enhanced liver is normal in size, contour, and attenuation. There is no intrahepa tic biliary ductal dilatation. The main portal veins appear patent. Gallbladder: Surgically absent noting clips in the gallbladder fossa. Spleen: Normal in size and attenuation noting heterogeneous arterial phase enhancement. Pancreas: Unremarkable. Adrenal glands: Unremarkable. Kidneys: The contrast enhanced kidneys are normal in size and without hydronephrosis. The kidneys enh ance symmetrically. Abdominal aorta and iliac arteries: There is advanced atherosclerotic calcification and mild ectasia of the abdominal aorta. The abdominal aorta is widely patent. No dissection is seen. The iliac arteri es are widely patent bilaterally. Major branches of the abdominal aorta: The celiac trunk, superior mesenteric, and inferior mesenteric arteries are widely patent. Hepatic arterial anatomy is conventional. The splenic artery is patent. Single bilateral renal arteries are widely patent. Bowel: There is [id number] colonic fecal retention. No bowel obstruction is seen. There is ada ed wall thickening of the rectosigmoid with mucosal hyperemia and surrounding inflammation/fluid. Mil phu wall thickening suggested involving the right colon. The appendix is not clearly visualized. Peritoneum: There is no intraperitoneal free air or abdominal ascites. Lymphadenopathy: None. Pelvic viscera: The prostate gland is enlarged and heterogeneous. The bladder is distended, and the w all is thickened/trabeculated indicating chronic outlet obstruction. There is evidence of previous ri ght inguinal herniorrhaphy. Skeletal structures: The skeletal structures are osteopenic. There is moderate lumbosacral spondylosi s. There are chronic appearing compression deformity is of T12, L4, and L5. No destructive bony lesio ns are seen. IMPRESSION: 1. Unremarkable CT angiogram assessment of the abdominal aorta and its major branches noting atheroma tous change. 2. There is evidence of a severe nonspecific proctocolitis, greatest involving the rectosigmoid. Eli elate clinically. 3. There is no CT evidence of active GI bleeding at the time of examination. 4. Cardiomegaly and trace pleural effusions. 5. Prostatomegaly with bladder distention and evidence of chronic clinical obstruction. 6. Additional findings as above. ACT 112: Negative or not required by law. Electronically signed by: Magdi Ohara M.D. 12/27/2023 4:01 PM
[2023-12-27 16:55] LABS: Hematocrit (blood only) 25.6 % (42.0-52.0)
[2023-12-27 23:44] LABS: Hematocrit (blood only) 26.4 % (42.0-52.0); Hemoglobin 8.8 g/dl (14.0-18.0)
[2023-12-28 06:54] LABS: Hematocrit (blood only) 26.2 % (42.0-52.0); Hemoglobin 9.2 g/dl (14.0-18.0); Mean Corpuscular Hemoglobin 34.2 pg (25.0-34.0); Mean Corpuscular Hgb Conc 35.1 g/dL (32.0-36.0); Mean Corpuscular Volume 97.4 fL (80.0-100.0); Mean Platelet Volume 9.5 fL (9.4-12.4); Platelet Count 76 K/uL (130-400); RDW Coefficient of Variation 13.8 % (11.5-14.5); RDW Standard Deviation 48.1 fL (36.4-46.3); Red Blood Count 2.69 M/uL (4.70-6.10); White Blood Count 5.89 K/ul (4.8-10.8)
[2023-12-28 07:08] LABS: BUN Creatinine Ratio 11.4 (10-20); Calcium 8.6 mg/dl (8.6-10.3); Est GFR (African American) 93.4 ml/min; Est GFR (Non-African American) 80.6 ml/min; Magnesium 1.9 mg/dl (1.7-2.4); Phosphorus 3.4 mg/dl (2.5-4.9); Potassium 4.1 mmol/L (3.5-5.1)
--- NOTE | 2023-12-28 09:29 | Hospitalist Progress Note ---
Date of Service December 28, 2023 Assessment & Plan (1) Acute gastrointestinal bleeding: Plan Mr. Alec Peterson is an 83 y/o M with PMHx of chronic hyponatremia, REENA nontolerant of CPAP, mild ascending aortic dilatation, history of recurrent DVT, paroxysmal atrial fibrillation [on Eliquis], diastolic dysfunction, aortic stenosis s/p TAVR, history of CAD, history of compression fracture of spine, osteoarthritis, history of chronic thrombocytopenia, BPH, history of panic attacks, history of fall with subdural hematoma s/p craniotomy [March 2022] and other problems listed below who presented to the ED for evaluation secondary to black stools since Saturday. Was sent here by his PCP after having a positive fecal occult blood test in the outpatient setting. Last dose of Eliquis 12/23 in am. Patient now s/p egd 12/25 with noted duodenal ulcer as well as gastritis. Patient transitioned to PO PPI and CLD. Discussed eliquis with Dr. Roger in [facility], [place]. Recommends holding with repeat labs at beginning of week and will assess frequently time to resume eliquis give risk of bleeding v risk of stroke. Patient initially to be discharged on 12/26, however, on day of patient with multiple bowel movements and diaphoresis. Patient noted to be hypotensive, with symptoms consistent with vasovagal episode. Patient hgb remained stable. Discharged canceled for close hemodynamic monitoring and hemoglobin check. CTA ordered given continued melanotic stool, which luckily did not reveal any source of acute bleeding. Patient likely with vasovagal episode. Slowly increase diet today and ensure tolerance with plan for discharge tomorrow. #Near syncopal episode, c/f Vasovagal episode however given concern of bleeding and persistent melena, will order CTA r/o other source of bleed if brisk Repeat hgb and trend no discharge to day Orth[facility] vital signs: s/p IVF #Acute blood loss anemia, c/f UGIB *stable #Duodenal ulcer #Melena EGD in 2020 showing esophagitis, gastritis, gastric polyps, and duodenitis. he had colonoscopy in 2020 showing internal hemorrhoids. Hgb 8 on presentation. Hgb was 11.9 on 12/11. Sodium 131. Lab work otherwise unremarkable. UA negative. IV protonix BID for now until CTA done GI consult: EGD on 12/25 with large cratering duodenal ulcer, gastritis Transfuse PRBC for <8 given cardiac history Hgb in am, if stable discharge in am #Chronic thrombocytopenia platelets 66, history of fluctuating baseline of 60-90s CTM, hold dvt ppx #Paroxysmal Afib Continue Metoprolol, rate controlled Hold eliquis Alexandre to Dr. 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 #HTN: BP stable, continue metoprolol. #CAD: Chronic, stable. Continue atorvastatin and metoprolol DVT Prophylaxis: Chemoprophylaxis currently contraindicated given acute GI bleeding.scds Code Status: DNR/DNI - As per discussion with patient at bedside. PCP: Jose Angel Weeks DO Disposition: discharge tomorrow Admission and Anticipated Discharge Date Admission Date: December 24, 2023 Subjective NAEO Feeling much better, denies any acute concerns reports bowel movements are slowing down and returning to a normal Physical Exam Constitutional: WD/WN, vitals as above Respiratory: normal respiratory effort, lungs clear to auscultation Cardiovascular: RRR, no murmur, no edema Gastrointestinal (Abdomen): normal bowel sounds, soft, nontender, no hepatosplenomegaly Results & Data Results & Data Vital Signs (Past 12 Hours) Vital Signs Temp Pulse Pulse Resp BP Pulse Ox O2 Del Method 12/28/23 08:01 36.4 C L 63 16 149/57 H 99 Room Air 12/28/23 03:41 36.8 C 56 L 16 128/69 97 Room Air 12/27/23 23:45 59 L 12/27/23 22:54 37.0 C 61 16 134/64 96 Room Air Laboratory Results Short CBC 12/27/23 12/27/23 12/27/23 Range/Units 11:42 16:36 22:59 WBC (4.8-10.8) K/ul Hgb 9.1 L 9.0 L 8.8 L (14.0-18.0) g/dl Hct 26.3 L 25.6 L 26.4 L (42.0-52.0) % Plt Count (130-400) K/uL 12/28/23 Range/Units 06:18 WBC 5.89 (4.8-10.8) K/ul Hgb 9.2 L (14.0-18.0) g/dl Hct 26.2 L (42.0-52.0) % Plt Count 76 L (130-400) K/uL BMP 12/28/23 06:18 Sodium 134 L Potassium 4.1 Chloride 99 Carbon Dioxide 33 H BUN 10 Creatinine 0.88 Glucose 106 H Calcium 8.6 Medications Administered Home Medications Medication Instructions Recorded Confirmed Last Taken cyanocobalamin (vitamin B-12) 500 500 mcg PO QAM 04/01/20 12/24/23 03/10/23 09:00 mcg tablet acetaminophen 500 mg tablet 1,000 mg PO Q8 PRN mild/moderate 06/15/20 12/24/23 03/11/23 07:00 pain cholecalciferol (vitamin D3) 10 400 unit PO QAM 06/15/20 12/24/23 03/10/23 09:00 mcg (400 unit) tablet (Vitamin D3) fluticasone propionate 50 2 spray intranasal QAM 06/15/20 12/24/23 03/10/23 09:00 mcg/actuation nasal spray,suspension (Flonase Allergy Relief) lifitegrast 5 % eye drops in a 1 drp OPB BID 06/15/20 12/24/23 03/11/23 10:00 dropperette (Xiidra) psyllium 2 tsp PO BID 11/28/20 12/24/23 07/02/21 12:00 apixaban 5 mg tablet (Eliquis) 5 mg PO BID 12/12/22 12/24/23 12/24/23 08:00 folic acid 1 mg tablet 1 mg PO QAM 02/01/23 12/24/23 03/10/23 09:00 metoprolol tartrate 50 mg tablet 50 mg PO BID 02/01/23 12/24/23 03/11/23 07:00 dextran 70-hypromellose (PF) 0.1 1 drp ophthalmic (eye) HS 12/10/23 12/24/23 Unknown %-0.3 % eye drops in a dropperette (Artificial Tears (PF)) loratadine 10 mg disintegrating 10 mg PO DAILY PRN allergies 12/10/23 12/24/23 Unknown tablet (Alavert) atorvastatin 20 mg tablet 20 mg PO PM #30 tabs 12/12/23 12/24/23 Unknown pantoprazole 40 mg tablet,delayed 40 mg PO BID 42 days #84 tabs 12/26/23 Unknown release Active Medications Generic Name Dose Route Start Last Admin Trade Name Freq PRN Reason Stop Dose Admin Acetaminophen 1,000 mg 12/27/23 09:04 12/28/23 06:30 Acetaminophen 500 Mg Tab PO 01/26/24 09:03 1,000 mg Q8H PRN Administration Pain Artificial Tears 1 drops 12/24/23 23:45 12/27/23 20:15 Artificial Tears OP 01/23/24 23:44 1 drops HS LESVIA Administration Atorvastatin Calcium 20 mg 12/24/23 23:15 12/27/23 20:16 Atorvastatin 20 Mg Tab PO 01/23/24 23:14 20 mg PM LESVIA Administration Fluticasone Propionate 2 sprays 12/25/23 09:00 12/27/23 08:46 Fluticasone Propionate Na Spr 16 Gm Btl FARAZ 01/24/24 08:59 2 sprays QAM LESVIA Administration Folic Acid 1 mg 12/25/23 09:00 12/28/23 09:05 Folic Acid 1 Mg Tab PO 01/24/24 08:59 1 mg QAM LESVIA Administration Pantoprazole Sodium 40 mg/ 10 mls @ 5 mls/min 12/27/23 10:45 12/28/23 09:06 Syringe IV 01/26/24 10:44 5 mls/min BID LESVIA Administration Lifitegrast 1 each 12/25/23 09:00 12/28/23 09:05 Lifitegrast 1 Each Droperette OP 01/24/24 08:59 1 each BID LESVIA Administration Loratadine 10 mg 12/24/23 23:37 12/27/23 08:47 Loratadine 10 Mg Tab PO 01/23/24 23:36 10 mg DAILY PRN Administration allergies Metoprolol Tartrate 50 mg 12/24/23 23:15 12/28/23 09:06 Metoprolol Tartrate 50 Mg Tab PO 01/23/24 23:14 50 mg BID LESVIA Administration Mupirocin 1 appln 12/24/23 23:45 12/28/23 09:06 Mupirocin 2% Oint 22 Gm Tube TOP 01/23/24 23:44 1 appln TID LESVIA Administration Pantoprazole Sodium 40 mg 12/26/23 21:00 12/27/23 08:46 Pantoprazole 40 Mg Tab PO 01/25/24 20:59 40 mg BID LESVIA Administration
--- NOTE | 2023-12-28 09:30 | Gastroenterology Progress Note ---
Date of Service December 28, 2023 Assessment & Plan (1) Acute gastrointestinal bleeding: Plan: Hemoglobin remained stable patient is hemodynamically stable. CT angiogram unrevealing for bleeding. Suspect episode just was related to evacuation of old blood. If patient tolerates regular diet today and no further overt bleeding can be discharged on proton pump inhibitor twice daily. He should follow-up with our office in 3 to 4 weeks. (2) Duodenal ulcer: Plan: Endoscopically low risk ulcer for rebleeding. Will continue proton pump inhibitor twice daily as an outpatient. Admission and Anticipated Discharge Date Admission Date: December 24, 2023 Subjective Resting comfortably denies shortness of breath chest pain or abdominal pain. Has had formed bowel movements today. Physical Exam Physical Exam: Eyes; anicteric HENT No masses Chest clear to A Cor S1, S2 physiologic Abd: softer nontender no masses Ext no edema Results & Data Results & Data Vital Signs (Past 12 Hours) Vital Signs Temp Pulse Pulse Resp BP Pulse Ox O2 Del Method 12/28/23 08:01 36.4 C L 63 16 149/57 H 99 Room Air 12/28/23 03:41 36.8 C 56 L 16 128/69 97 Room Air 12/27/23 23:45 59 L 12/27/23 22:54 37.0 C 61 16 134/64 96 Room Air Laboratory Results Laboratory Results - last 48 hr 12/27/23 12/27/23 12/27/23 07:20 11:42 16:36 WBC 5.53 RBC 2.53 L Hgb 8.5 L 9.1 L 9.0 L Hct 24.9 L 26.3 L 25.6 L MCV 98.4 MCH 33.6 MCHC 34.1 RDW Std Deviation 47.9 H RDW Coeff of Jaleel 13.6 Plt Count 68 L MPV 9.5 Sodium 131 L Potassium 3.6 Chloride 97 L Carbon Dioxide 30 Anion Gap 4 BUN 10 Creatinine 0.76 Est Cr Clr Drug Dosing 78.7 Est GFR ( Amer) 99.2 Est GFR (Non-Af Amer) 85.6 BUN/Creatinine Ratio 13.2 Glucose 109 H Calcium 8.2 L Phosphorus 3.3 Magnesium 1.8 12/27/23 12/28/23 22:59 06:18 WBC 5.89 RBC 2.69 L Hgb 8.8 L 9.2 L Hct 26.4 L 26.2 L MCV 97.4 MCH 34.2 H MCHC 35.1 RDW Std Deviation 48.1 H RDW Coeff of Jaleel 13.8 Plt Count 76 L MPV 9.5 Sodium 134 L Potassium 4.1 Chloride 99 Carbon Dioxide 33 H Anion Gap 2 L BUN 10 Creatinine 0.88 Est Cr Clr Drug Dosing 68.0 Est GFR ( Amer) 93.4 Est GFR (Non-Af Amer) 80.6 BUN/Creatinine Ratio 11.4 Glucose 106 H Calcium 8.6 Phosphorus 3.4 Magnesium 1.9 PG Care Time/CCT Total # of Minutes Spent Total Time Spent with Patient: Total time spent is greater than 50% in coordination of care (as documented) at patient's floor/unit and/or counseling patient: Coding Level of Care Code 39846 SUB INP/OBS CARE 2/35MIN Diagnoses Acute gastrointestinal bleeding K92.2 Duodenal ulcer K26.9
[2023-12-28] MEDS: PANTOprazole 40 MG TAB PO SCH (20:36)
[2023-12-29 06:34] LABS: Hematocrit (blood only) 25.9 % (42.0-52.0); Hemoglobin 8.8 g/dl (14.0-18.0); Mean Platelet Volume 9.7 fL (9.4-12.4); Platelet Count 71 K/uL (130-400); RDW Coefficient of Variation 13.9 % (11.5-14.5); RDW Standard Deviation 50.3 fL (36.4-46.3); Red Blood Count 2.59 M/uL (4.70-6.10); White Blood Count 4.33 K/ul (4.8-10.8)
--- NOTE | 2023-12-29 09:22 | Discharge Summary ---
Discharge Summary Date of Service December 29, 2023 Principal Dx & Hospital Course #1 = Principal Diagnosis (1) Acute gastrointestinal bleeding: Plan Mr. Alec Peterson is an 83 y/o M with PMHx of chronic hyponatremia, REENA nontolerant of CPAP, mild ascending aortic dilatation, history of recurrent DVT, paroxysmal atrial fibrillation [on Eliquis], diastolic dysfunction, aortic stenosis s/p TAVR, history of CAD, history of compression fracture of spine, osteoarthritis, history of chronic thrombocytopenia, BPH, history of panic attacks, history of fall with subdural hematoma s/p craniotomy [March 2022] and other problems listed below who presented to the ED for evaluation secondary to black stools since Saturday. Was sent here by his PCP after having a positive fecal occult blood test in the outpatient setting. Last dose of Eliquis 12/23 in am. Patient now s/p egd 12/25 with noted duodenal ulcer as well as gastritis. Patient transitioned to PO PPI and CLD. Discussed eliquis with Dr. Roger in [facility], [place]. Recommends holding with repeat labs at beginning of week and will assess frequently time to resume eliquis give risk of bleeding v risk of stroke. Patient initially to be discharged on 12/26, however, on day of patient with multiple bowel movements and diaphoresis. Patient noted to be hypotensive, with symptoms consistent with vasovagal episode. Patient hgb remained stable. Discharged canceled for close hemodynamic monitoring and hemoglobin check. CTA ordered given continued melanotic stool, which luckily did not reveal any source of acute bleeding. Patient likely with vasovagal episode. On day of discharge, patient tolerating diet, functioning independently in room, and eager to go home. No new concerns reported. No further melanotic stool. #Near syncopal episode, c/f Vasovagal episode however given concern of bleeding and persistent melena, will order CTA r/o other source of bleed if brisk Repeat hgb and trend no discharge to day [facility] vital signs: s/p IVF #Acute blood loss anemia, c/f UGIB *stable #Duodenal ulcer #Melena EGD in 2020 showing esophagitis, gastritis, gastric polyps, and duodenitis. he had colonoscopy in 2020 showing internal hemorrhoids. Hgb 8 on presentation. Hgb was 11.9 on 12/11. Sodium 131. Lab work otherwise unremarkable. UA negative. IV protonix BID for now until CTA done GI consult: EGD on 12/25 with large cratering duodenal ulcer, gastritis Transfuse PRBC for <8 given cardiac history Stable Hgb, plan for PCP follow up 12/30 to discuss resumption of AC timing #Chronic thrombocytopenia platelets 66, history of fluctuating baseline of 60-90s CTM, #Paroxysmal Afib Continue Metoprolol, rate controlled Hold eliquis Alexandre to Dr. 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 #HTN: BP stable, continue metoprolol. #CAD: Chronic, stable. Continue atorvastatin and metoprolol Notes For Next Care Provider Medication Changes From Visit Hold Apixaban 5mg bid Start protonix 40mg bid Admission HPI Per Admitting Provider Alec Peterson is an 83 y/o M with PMHx of chronic hyponatremia, REENA nontolerant of CPAP, mild ascending aortic dilatation, history of recurrent DVT, paroxysmal atrial fibrillation [on Eliquis], diastolic dysfunction, aortic stenosis s/p TAVR, history of CAD, history of compression fracture of spine, osteoarthritis, history of chronic thrombocytopenia, BPH, history of panic attacks, history of fall with subdural hematoma s/p craniotomy [March 2022] and other problems listed below who presented to the ED for evaluation secondary to black stools since Saturday. History obtained from patient, at bedside and associated chart review. Noticed first episode of black stools on Saturday. He describes his stools as "oily" in appearance. Last bowel movement was on Saturday. No diarrhea. Was sent here by his PCP after having a positive fecal occult blood test in the outpatient setting. No fevers. Reports a chronic dry cough. Has been experiencing a headache. Did not take any OTC pain medication at home for this headache. He did feel a little lightheadedness when he got up to use the bathroom in the ED. No tobacco use. No alcohol use or recreational drug use. His last dose of Eliquis was this morning. Admission Exam Per Admitting Provider GENERAL: Alert and oriented x3. NAD, on RA. HEENT: No pallor, no icterus. Pupils equal, round and reactive to light. Oral mucosa moist. NECK: No JVD, no neck masses. HEART: S1 and S2 heard. Regular rate and rhythm. No murmur, no gallop. RESPIRATORY SYSTEM: Normal AP diameter. No accessory muscle use. No wheezing, no crackles. ABDOMEN: Soft, bowel sounds present, epigastric tender noted, no distention. CENTRAL NERVOUS SYSTEM: No facial droop. Speech is clear. Obeys simple commands. Moves extremities. EXTREMITIES: No edema, no erythema seen. Discharge Exam Constitutional WD/WN, vitals as above Respiratory normal respiratory effort, lungs clear to auscultation Cardiovascular RRR, no murmur, no edema Gastrointestinal (Abdomen) normal bowel sounds, soft, nontender, no hepatosplenomegaly Updated Medication List Medication Instructions Recorded Confirmed Type cyanocobalamin (vitamin B-12) 500 500 mcg PO QAM 04/01/20 12/24/23 History mcg tablet acetaminophen 500 mg tablet 1,000 mg PO Q8 PRN mild/moderate 06/15/20 12/24/23 History pain cholecalciferol (vitamin D3) 10 400 unit PO QAM 06/15/20 12/24/23 History mcg (400 unit) tablet (Vitamin D3) fluticasone propionate 50 2 spray intranasal QAM 06/15/20 12/24/23 History mcg/actuation nasal spray,suspension (Flonase Allergy Relief) lifitegrast 5 % eye drops in a 1 drp OPB BID 06/15/20 12/24/23 History dropperette (Xiidra) psyllium 2 tsp PO BID 11/28/20 12/24/23 History apixaban 5 mg tablet (Eliquis) 5 mg PO BID 12/12/22 12/24/23 History folic acid 1 mg tablet 1 mg PO QAM 02/01/23 12/24/23 History metoprolol tartrate 50 mg tablet 50 mg PO BID 02/01/23 12/24/23 History dextran 70-hypromellose (PF) 0.1 1 drp ophthalmic (eye) HS 12/10/23 12/24/23 History %-0.3 % eye drops in a dropperette (Artificial Tears (PF)) loratadine 10 mg disintegrating 10 mg PO DAILY PRN allergies 12/10/23 12/24/23 History tablet (Alavert) atorvastatin 20 mg tablet 20 mg PO PM #30 tabs 12/12/23 12/24/23 Rx pantoprazole 40 mg tablet,delayed 40 mg PO BID 42 days #84 tabs 12/26/23 Rx release Hospital Stay Data Consultations 12/24/23 17:35 ED Decision to Admit Stat 12/24/23 17:54 Consult Gastroenterology Routine Procedures Performed Operation Date: 12/26/23 16:30 Actual Procedures p EGD Biopsy Cytology - Iftikhar Uriostegui MD Diagnostic Imagining Performed 12/27/23 13:40 CTA abdomen pelvis w con [CT angio abdomen pelvis w con] Urgent Pending Results Patient Have Any Pending Studies at Discharge: No Discharge Instructions Given to Patient (Per Discharging Provider) You were admitted for black stool and found to have a bleeding stomach (duodenal) ulcer. It is recommended you continue pantoprazole 40mg two times a day for 6 weeks and follow up with Gastroenterology as an outpatient. It is recommended you hold your Eliquis until PCP and Cardiology follow up next week. At that time, you will continue to discuss risks and benefits about timing of resuming anticoagulation, additionally you will be set up with out patient labs. If you notice increase in black stool or other signs of bleeding (bright red blood per rectum or vomiting coffee ground-like/black/red material) please come to the emergency room. Total Time Total Time Spent Total Time Spent (In Minutes): 45
[2023-12-29 10:50] VITALS: BP 139/55; PULSE 70; RESP 18; TEMP 97.9; O2SAT 99
== END 2023-12-29 13:17 | disposition home or self-care (01) | DRG 378 ==
LOC: ED 15:51 → EDINP 17:47 → SUATTDRO 17:47 → 2S 23:18